=== PATIENT | female | born 1950 | race Caucasian/White ===

== ENCOUNTER → 2023-03-15 | Outpatient (CLI) | payer MEDICARE, OTHER | END | disposition home or self-care (01) | LOC: LABPAT 11:59 | PROVIDERS: ATTEND Orthopaedic Surgery | DX: Z01.812 Encounter for preprocedural laboratory examination (principal); Z22.322 Carrier or suspected carrier of Methicillin resistant Staphylococcus aureus; M47.816 Spondylosis without myelopathy or radiculopathy, lumbar region; M48.061 Spinal stenosis, lumbar region without neurogenic claudication; M54.16 Radiculopathy, lumbar region | CPT/HCPCS: 86850; 86900; 86901; 87070 ==

== ENCOUNTER 2023-03-21 06:59 | Inpatient (IN) | payer MEDICARE, OTHER ==
--- NOTE | 2023-03-21 06:40 | P.HPOR ---
History of Present Illness H&P Date: 03/15/23 .D:Date: 03/15/23 : 04:30pm .T:Title: *[facility] PR[facility]... COPY... Date of :50 R14 Allergies: Age: 72 year Height: 5'6" Weight: 180 lbs BP:/ BMI: 29.05 Occupation: N/A VAS: 8 CHIEF COMPLAINT: Low back pain DOI:Chronic DOS: n/a Duration of current treatment regiment: 4 months HISTORY : Xrays No new xrays taken in office Trauma or injury No Work-Related No Pain description aching, burning, sharp, throbbing , increasing . Location posterior Patient notes that their pain radiates to bilateral lower extremities Activity Modification yes Hand Dominance right TREATMENTS COMPLETED: 6 weeks of PT completed? Month and Year of last PT date? Yes How many sessions? unknown Did it help? No, exacerbates symptoms Physician directed home exercise completed? yes Patient has trialed the physician directed home exercise program without relief of their symptoms. Medications No List: none Alternative interventions Chiropractic: yes Massage therapy: yes R.I.C.E: yes Brace: No Injections Yes How many? 2 Did they help? yes , 1st injection w/relief, 2nd injection, no relief. RFA: No SUBJE CTIVE: Ms. Schultz returns to the office today for a pre-operative appointment for their C92-Syvtlc decompression and fusion. Patient continues to report a increasing aching, burning, sharp, throbbing lumbar pain ongoing for with an onset of 2018 after her right hip replacement. Patient states this pain has increased associated with an increase in left thigh and groin pain. She also continues to report a burning in the thighs bilaterally and a tingling in the thighs. In addition to their lumbar pain, they do report that it radiates into the bilateral lower extremities, associated with numbness and tingling.Ms. Schultz symptoms are exacerbated with prolonged sitting, standing or increased activity, due to this they notes that it is increasingly difficult for Ms. Schultz to complete many of their daily tasks. Patient only finds relief with laying down. Patient is having no sleep disturbances. Regarding treatments, the patient has previously trialed the above listed modalities. Patient denies trialing any other modalities at this time. For their symptoms, the patient denies taking pain medications. Otherwise the patient denies any f/c/sob/cp, no bladder or bowel retention/incontinence, no perineal numbness/tingling, and ambulates independently. HPI: Ms. Schultz returns to the office on 01/11/23 for an evaluation of their low back pain. Patient reports a increasing aching, burning, sharp, throbbing lumbar pain ongoing for with an onset of 2018 after her right hip replacement. Patient states this pain has increased associated with an increase in left thigh and groin pain. She reports a burning in the thighs bilaterally and a tingling in the thighs. In addition to their lumbar pain, they do report that it radiates into the bilateral lower extremities, associated with numbness and tingling. Overall the patient has seen a progressive increase in symptoms since their onset and would like to schedule surgery today. Ms. Schultz symptoms are exacerbated with prolonged sitting, standing or increased activity, due to this they notes that it is increasingly difficult for Ms. Schultz to complete many of their daily tasks. Patient only finds relief with laying down. Patient is having no sleep disturbances. Regarding treatments, the patient has previously trialed the above listed modalities. Patient denies trialing any other modalities at this time. For their symptoms, the patient denies taking pain medications. Otherwise the patient denies any f/c/sob/cp, no bladder or bowel retention/incontinence, no perineal numbness/tingling, and ambulates independently. Ms. Schultz presents to the office on 12/30/22 for an evaluation of their low back pain. Patient reports a increasing aching, burning, sharp, throbbing lumbar pain ongoing for with an onset of 2018 after her right hip replacement. Patient felt that this pain was related to her hip and had a thorough workup by Dr. Mcadams to rule this out. Once he took imaging of her back, she was referred to our services. In addition to their lumbar pain, they do report that it radiates into the bilateral lower extremities, associated with numbness and tingling. Patient reports that radicular pain radiates into her buttock and into her bilateral thighs to her knees. Overall the patient has seen a progressive increase in symptoms since their onset. Ms. Schultz symptoms are exacerbated with prolonged sitting, standing or increased activity, due to this they notes that it is increasingly difficult for Ms. Schultz to complete many of their daily tasks. Patient only finds relief with laying down. Patient is having no sleep disturbances. Regarding treatments, the patient has previously trialed the above listed modalities. Patient denies trialing any other modalities at this time. For their symptoms, the patient denies taking analgesics/anticoagulants/narcotics/MOHAMUD-analogs. She reports nothing seems to help her symptoms. Otherwise the patient denies any f/c/sob/cp, no bladder or bowel retention/incontinence, no perineal numbness/tingling, and ambulates independently. The patients' past social, medical, family, surgical history, as well as review of systems, have been reviewed. Please refer to the Neurosurgery History and Physical form that has been scanned in to our electronic medical record system. 14 points review of systems completed and as stated in HPI, all other systems reviewed are negative. P3 Social History: Smoking: never a smoker P3 Alcohol: occasional alcohol P3 P3 Family History: Reviewed, see appropriate section of the chart for details. P2 Past Medical History: Reviewed, see appropriate section of the chart for details. P1 Current Medications: Rx: gemfibroziL 600 mg tablet Ref: 0 Instructions: take 1 tablet (600 mg) by oral route 2 times per day 30 minutes before morning and evening meal Rx: lisinopriL 20 mg tablet Ref: 0 Instructions: take 1 tablet (20 mg) by oral route once daily Rx: lisinopriL 20 mg-hydrochlorothiazide 12.5 mg tablet Ref: 0 Instructions: take 1 tablet by oral route once daily Rx: metFORMIN 500 mg tablet Ref: 0 Instructions: take 1 tablet (500 mg) by oral route 2 times per day with morning andevening meals Rx: multivitamin tablet Ref: 0 Rx: nabumetone 750 mg tablet Ref: 0 Instructions: take 1 tablet (750 mg) by oral route 2 times per day P1 PHYSICAL EXAMINATION: General: Awake, alert, appropriate for age, in no acute distress. HEENT: No unusual neck masses around region of lateral neck triangle, thyroid, supraclavicular groove Heart: Regular rate and rhythm, normal S1, S2 and no murmur/gallop. Lungs: Clear to auscultation bilaterally with no use of accessory muscles. Extremities: Skin warm and dry without acute lesions, coloration, temperature, skin intact, no tenderness or erythema Integument: Hairy patches: ABSENT Dorsal skin dimples: ABSENT Cafe au lait spots: ABSENT Surgical incisions: n/a Palpation: Please see Pain drawing on Intake sheet for further detail. Midline spinal tenderness: No E6 Cervical Tenderness: No E6 Paralumbar tenderness: No E6 Parathoracic tenderness: No E6 Buttocks tenderness: Yes E6 POSTURAL and MUSCULO-SKELETAL EVALUATION: Coronal Balance: NEUTRAL Recumbent testing: Patient is able to lay flat on back Sagittal Balance: NEUTRAL Shoulder Profile: LEVEL Pelvic Girdle: LEVEL Neck ROM: UNRESTRICTED Lumbar ROM: RESTRICTED Shoulder ROM: Symmetrical Hip ROM: Symmetrical Knee ROM: Symmetrical Hands: Normal appearance, symmetrical Feet: Normal appearance, Symmetrical VASCULAR STATUS : LEFT RIGHT Wrist Pulses INTACT INTACT Pedal Pulses (Dors. pedis & post.tibialis) INTACT INTACT Color NORMAL NORMAL Edema Absent Absent NEUROLOGIC EXAMINATION: Mental Status:Awake and alert, fully oriented, with normal attention, concentration and memory, and fluent, appropriate speech. Cranial Nerves: I: Olfactory not tested. II: Visual acuity normal, no visual field deficit noted with confrontation. III,IV: Normal pupillary reflexes & intact extraocular movements without nystagmus. V,: Intact symmetrical facial sensation. VII: Intact symmetrical facial motor movement VIII: Hearing intact. IX,X: Intact gag, swallow, & normal voice. XI: Sternocleidomastoid, trapezius function intact. XII: Tongue midline with normal movements. L'hermitte's Sign: Negative / absent Spurling'Sign: Absent bilaterally. Cubital percussion test: Absent bilaterally. Cardona-Tinel sign - Carpal region: Absent bilaterally. Straight Leg Raising: Absent bilaterally. Crossed straight leg raise: negative O8 MOTOR EXAM (0-5/5, N/T Muscle appearance: Symmetrical, without signs of atrophy or dystrophy UPPER EXTREMITY RIGHT LEFT Shoulder Abduction 5/5 5/5 Biceps 5/5 5/5 Triceps 5/5 5/5 Wrist Extension 5/5 5/5 Hand Intrnsics 5/5 5/5 Economic Forecaster 5/5 5/5 Hand and finger dexterity intact bilaterally? yes Disdiadochokinesis examination negative bilaterally? yes LOWER EXTREMITY RIGHT LEFT Hip Flexion 4/5 4/5 Knee Extension 4/5 4/5 Knee Flexion 4/5 4/5 Dorsiflexion 4/5 4/5 Plantarflexion 4/5 4/5 EHL 4/5 4/5 FHL 4/5 4/5 Toe heel walk / heel-toe walk intact while maintaining satisfactory balance? No Squatting/straightening w/o assistance to a min of 60 degree knee flexion? No Single leg stance: intact Trendelenburg sign negative bilaterally REFLEXES(0-4/2, NT)Upper ExtremityLower Extremity Right 2 2 Left 2 2 Pathological Reflexes RIGHT LEFT Cardona's Absent Absent Clonus Absent Absent Babinski Absent Absent Sensory system (0-4, N/T) Test type RU SHERYL RL LL Joint-Position 2 2 2 2 Vibration 2 2 2 2 Pain & LT sense 2 2 2 2 Dermatomal Deficit: None None None None Gait and Functional Evaluation: Ambulatory aids: Independent Romberg's test: Intact bilaterally Steady Gait RADIOGRAPHIC STUDIES: XRay Lumbar Multiview (AP, Lateral, Flexion, Extension) with AP pelvis; 5 views taken at [facility] on 12/30/22: Severe multilevel spondylitic and degenerative changes with flattening of the normal lordosis. Multilevel diminished disc height. Grade 1 anterolisthesis of L3 onto L4. Grade 1 retrolisthesis of L4 onto L5. L2-L5 moderate facet arthropathy. L3-L4 severe spinal canal stenosis. Degenerative lumbar scoliosis with convex to the right. No acute osseous abnormalities. Pelvis: The visualized sacrum and iliac wings are within normal limits. Right total hip arthroplasty noted hardware is intact with no migration. [facility]: Impression: 1. L2-L3: Disc height loss and dislocation. Diffuse circumferential bolts. Mild to moderate bilateral neural foraminal narrowing. Facet hypertrophy and ligamentum flavum thickening. Mild narrowing of the central canal. 2. L3-L4: Moderate disc height loss and dislocation. Diffuse circumferential bulge. Moderate bilateral neural foraminal narrowing. Moderately severe narrowing of the central canal to 6 mm. Moderate facet hypertrophy. 3. L4-L5: Moderate to severe disc height loss and dislocation. Moderate diffuse circumferential bulge. Moderate facet hypertrophy. Mild to moderate bilateral neural foraminal narrowing. Mild narrowing of the central canal. 4. L5-S1: Mild disc height loss and dislocation. Moderate facet hypertrophy. Small bilateral facet joint effusions, right greater than left. Moderate right neural foraminal narrowing. Mild left neural foraminal narrowing. IMPRESSION: It was my pleasure to have seen and examined Giana. I reviewed the patient's clinical syndrome, physical findings, and imaging studies during the appointment today. It is my impression that the patient has a diagnosis of. 1. L1-S1 spondylosis with stenosis 2. L1-S1 spondylolisthesis 3. Lower extremity radiculopathy 4. Low back pain 5. Lower extremity weakness I outlined the natural course history without intervention and various interven tional options. PLAN: Based on my findings I suggest the following course of action: -Patient fitted for LSO brace today in office -Advised patient to continue with supplements, health maintenance, and home exercise programs. Patient expressed understanding and will continue with these modalities. -I discussed treatment options with the patient, including operative and non- operative options, and they have elected to proceed with the following surgical procedure: lumbar Q54-Nvxcau Decompression and Fusion The indications, risks, benefits, and alternatives to surgery were discussed with the patient and family at length. Specifically (but not limited to) the risks of infection, stiffness, recurrence of symptoms, need for revision surgery, local numbness, neurovascular injury, and blood clots were discussed. The patient's questions were answered. The decision to proceed was made. Consent will be obtained for the procedure. -Ambulate daily -Take medications as directed -Ice and rest for pain and swelling control. Spine Surgery Risk Review Ms. Schutlz is presenting for evaluation of lumbar pain. It was my pleasure to have seen and examined Ms. Schultz. In our visit today we have had a chance to go over subjective complaints, physical examination findings and treatments including the natural course history without intervention and various interventional options. The patients imaging demonstrates: XRay Lumbar Multiview (AP, Lateral, Flexion, Extension) with AP pelvis; 5 views taken at [facility] on 12/30/22: Severe multilevel spondylitic and degenerative changes with flattening of the normal lordosis. Multilevel diminished disc height. Grade 1 anterolisthesis of L3 onto L4. Grade 1 retrolisthesis of L4 onto L5. L2-L5 moderate facet arthropathy. L3-L4 severe spinal canal stenosis. Degenerative lumbar scoliosis with convex to the right. No acute osseous abnormalities. Pelvis: The visualized sacrum and iliac wings are within normal limits. Right total hip arthroplasty noted hardware is intact with no migration. [facility]: Impression: 1. L2-L3: Disc height loss and dislocation. Diffuse circumferential bolts. Mild to moderate bilateral neural foraminal narrowing. Facet hypertrophy and ligamentum flavum thickening. Mild narrowing of the central canal. 2. L3-L4: Moderate disc height loss and dislocation. Diffuse circumferential bulge. Moderate bilateral neural foraminal narrowing. Moderately severe narrowing of the central canal to 6 mm. Moderate facet hypertrophy. 3. L4-L5: Moderate to severe disc height loss and dislocation. Moderate diffuse circumferential bulge. Moderate facet hypertrophy. Mild to moderate bilateral neural foraminal narrowing. Mild narrowing of the central canal. 4. L5-S1: Mild disc height loss and dislocation. Moderate facet hypertrophy. Small bilateral facet joint effusions, right greater than left. Moderate right neural foraminal narrowing. Mild left neural foraminal narrowing. On physical exam, Ms. Schultz demonstrates: Patient reports a increasing aching, burning, sharp, throbbing lumbar pain ongoing for with an onset of 2018 after her right hip replacement. Patient states this pain has increased associated with an increase in left thigh and groin pain. She reports a burning in the thighs bilaterally and a tingling in the thighs. In addition to their lumbar pain, they do report that it radiates into the bilateral lower extremities, associated with numbness and tingling. Overall the patient has seen a progressive increase in symptoms since their onset and would like to schedule surgery today. Ms. Schultz symptoms are exacerbated with prolonged stiitng, standing or increased activity, due to this they notes that it is increasingly difficult for Ms. Schultz to complete many of their daily tasks. Patient only finds relief with laying down. I have explained to the patient that as their condition progresses it will cause further neurological deficits and eventual paralysis. Based on the patients imaging, physical exam, and the rapid progression and disabling nature of their symptoms, at this time I recommend surgery in the form of a: lumbar [id number]-[id number] Decompression and Fusion. I discussed the risk and benefits of this procedure at length with Ms. Schultz. The patient agreed to considered pursuing the procedure abovementioned. Prior to surgery, she should follow up with her PCP (Cardio, ID, IM etc) for clearance. Questions were invited and answered, and the patient wishes to proceed as outlined below. Currently, I am recommendin.lumbar P03-Lwdckq Decompression and Fusion 2.Follow up with PCP for surgical clearance 3.Review of surgical risks and benefits as well as an educational packet on the proposed surgical procedure. Risks: All surgical procedures come with inherent risks, including those related to positioning, anesthesia, intraoperative findings, and postoperative complications. It is important to understand that surgery does not come with any guarantee of a successful outcome as complications and adverse events are always possible. The patient was given a handout in office today discussing the surgical procedure and risks associated with the intervention, both of which were discussed with the patient. These risks include but are not limited to the following: * Experiencing same, different or even worse symptoms in back, neck, arms, or legs compared to before surgery. Requiring further surgery or other forms of treatment presently or at some time in the future at same or other levels of the intended spine surgery. On an extreme but fortunately relatively rare basis severe complication such as blindness, stroke, heart attack, temporary and/or permanent nerve injury, paralysis, coma, or may occur, sometimes without known explanation. Surgical complications may include but are not limited to risk of infection, fluid accumulation in the surgical dissection site, including a seroma or hematoma, that requires additional surgery, wound drainage, bleeding, new numbness or weakness, vision changes/loss, spinal fluid leakage, non-healing and/or infected incision, headaches, difficulty or inability to swallow, hoarseness, hemopneumothorax, pneumothorax, impotence, retrograde ejaculation, vaginal dryness; injury to nerves, spinal cord, blood vessels, lymphatics or other vital organs (i.e., bowel injury, injury to the great vessels); heterotopic bone formation; complications related to the hardware such as screws, rods, cages including misplaced hardware, device failure, instrumentation at the wrong spine level, hardware fracture/breakage, or hardware loosening; vertebral failure of the spinal column above or below the newly placed hardware; retained surgical instrumentations or devices and the need for further surgery. * Medical risks of the planned spine surgery include but are not limited to generalized Infections to the whole body or local areas outside of the surgica l site (sepsis), heart attack, bleeding, anaphylaxis, meningitis, seizure, epilepsy, hearing loss, burn lopez, laceration of the head or other areas of the body, bruising, hypersensitivity of the skin, bladder over distension; allergic reaction; shoulder injury related to positioning; fat, blood and air clots to other areas of the body like heart, lungs, brain; failure of internal organs such as lungs, kidneys, liver and excessive bleeding. If blood transfusions are necessary, note that transfusions may cause intolerance reactions such as anaphylaxis or other complex reactions. Despite best efforts, the results of spine surgery might not heal in terms of bone, soft tissues such as skin, fascia, ligaments, and joints. Additionally, in order to achieve best possible results, spine surgery may be carried out beyond the initially planned levels and involve decompression, fusion including insertion of hardware at levels other than the original intended area of surgical interest change some portions of the procedure in order to ensure the best possible outcomes. With spine surgery and spinal fusion, there are different off label uses of instrumentation (devices, implants and hardware) as well as biological substances (bone morphogenic proteins, demineralized bone matrix) as well as using extra bone from allograft sources (i.e. cadaver bone) or autograft (iliac crest bone, ribs, or the spine itself). The patient has been given information about these practices and their inherent risks and benefits. [facility] is an educational center that serves as a training facility for neurosurgical and orthopedic PICKER MACHINE OPERATOR and Nursing students. Physician assistants are medically trained surgical providers who function in the outpatient, inpatient, and operating room setting under the direct supervision of the attending surgeon. [facility] has multiple operating rooms with single and overlapping rooms running daily. They currently function under the required guidelines as produced by the [facility] Finance Committee with regards to the overlapping rooms and will continue to comply with changes to this policy as they occur. The requirements include and are complied with as follows: (1) the critical portions of the overlapping rooms will not occur at the same time, (2) the attending physician will be physically present during the critical portions of the procedure and immediately available during the entire case, and (3) a back-up attending is designated should the primary attending not be immediately available. The patient has had a chance to review all the listed information, has been given print outs detailing this information, and has had all his/her questions answered to their satisfaction. It was my pleasure to have seen and examined Ms. Schultz. In our visit today we have had a chance to go over my understanding of our patient's current condition, the natural course history without intervention and various interventional options. Questions were invited and answered, and the patient wishes to proceed as outlined above. I have seen and examined the patient for 25 minutes and we have spent more than 50% of the time in repeat and detailed cou nseling about the patient's condition, its natural course history with out and as much as can be predicted with surgery and re-review of various surgical treatment options. In conclusion, Ms. Schultz requested we proceed with the above suggested surgery and are willing to accept risks and limitations of the suggested surgery as nature of the disease process and our best attempts at treatment for the condition. Thank you again for allowing us to be part of your patient's care. Please don't hesitate to contact me if you have any further questions. Follow- up: DEL Post procedure 1month 6wks 3 months 6 months 1 year Patient Education: (Informational booklet, instructions, etc) given at today's appointment: DEL Yes .ED:Patient Education: Y Medications Reviewed: YES In our visit today Ms. Schultz and I have had a chance to go over my understanding of the patient's current condition, the natural course history without intervention and various interventional options. Questions were invited and answered, and the patient wishes to proceed as outlined above. I will be sure to keep you updated afterMs. Schultz returns here for further follow-up. Thank you again for your referral. Please do not hesitate to contact me if you have any further questions. Signed and authenticated by: [facility] [address] [id number] This message is confidential, intended only for the named recipient(s) and may contain information that is privileged or exempt from disclosure under applicable law. If you are not the intended recipient(s), you are notified that the dissemination, distribution or copying of this information is strictly prohibited. If you received this message in error, please notify the sender then delete this message. Patient verbalizes understanding of the information discussed. The above note was initiated by Saravanan Gtz, physician recording medical practice assistant for Dr. Lie Duong. This note has been reviewed by Dr. Duong, who has made his personal changes and impressions for this document. CC: Fred Stephens, Past Medical History Past Medical History: Diabetes Mellitus, Hyperlipidemia, Hypertension, Musculoskeletal Disorder, Osteoarthritis (OA) Additional Past Medical History / Comment(s): Degenerative Disc Disease. History of Any Multi-Drug Resistant Organisms: None Reported Past Surgical History: Cholecystectomy Additional Past Surgical History / Comment(s): Dental work, cataract surgery. Past Anesthesia/Blood Transfusion Reactions: No Reported Reaction Past Psychological History: No Psychological Hx Reported Smoking Status: Never smoker Past Alcohol Use History: Occasional Additional Past Alcohol Use History / Comment(s): 2-3 alcoholic drinks 3-4 times per week. Past Drug Use History: None Reported - Past Family History Brother(s) Family Medical History: Cancer Additional Family Medical History / Comment(s): Lung cancer. Father Family Medical History: Cancer Additional Family Medical History / Comment(s): Melanoma. Medications and Allergies Home Medications Medication Instructions Recorded Confirmed Type Calcium Citrate/Vitamin D3 1 each PO DAILY 03/15/23 03/15/23 History [Citracal + D Maximum Caplet] Glucosamine/Chondr Leon A Sod [Osteo 1 each PO BID 03/15/23 03/15/23 History Bi-Flex Caplet] Lisinopril-Hctz 20-12.5 mg 1 tab PO QAM 03/15/23 03/15/23 History [Zestoretic 20-12.5] Multivitamins, Thera [Multivitamin 1 tab PO DAILY 03/15/23 03/15/23 History (formulary)] Nabumetone 750 mg PO BID 03/15/23 03/15/23 History Niacin 500 mg PO DAILY 03/15/23 03/15/23 History gemfibroziL [Lopid] 600 mg PO BID 03/15/23 03/15/23 History lisinopriL [Prinivil] 20 mg PO QAM 03/15/23 03/15/23 History metFORMIN HCL 500 mg PO BID 03/15/23 03/15/23 History Allergies Allergy/AdvReac Type Severity Reaction Status Date / Time ciprofloxacin [From Cipro] Allergy Rash/Hives Verified 03/15/23 15:53 poison jarek extract Allergy Rash/Hives Verified 03/15/23 15:53 Sulfa (Sulfonamide Allergy Unknown Verified 03/15/23 15:53 Antibiotics) Physical Examination Osteopathic Statement: *. No significant issues noted on an osteopathic structural exam other than those noted in the History and Physical/Consult. Results - Labs Labs: Microbiology - Last 24 Hours (Table) 03/15/23 12:18 Nasal Screen MRSA/MSSA - Final Nasal Swab Staphylococcus aureus,Not MRSA
[~2023-03-21 06:59] MED LIST: ACETAMINOPHEN TAB 500 MG TAB PO PRN; DEXAMETHASONE SOD PHOSPHATE 4 MG/ML 1 ML VIAL IV ONE; GABAPENTIN 300 MG CAP PO PRN; LACTATED RINGERS 1,000 ML IV SCH; LIDOCAINE 1% (10MG/ML) FOR IV START INTRADERMA PRN; MIDAZOLAM 2 MG/2 ML VIAL IV PRN; ONDANSETRON 4 MG/2 ML VIAL IVP ONE; ONDANSETRON 4 MG/2 ML VIAL IVP PRN; TRANEXAMIC 1,000 MG/100ML-NACL 1,000 MG in SALINE 1 100ML.BAG IVPB PRN
[2023-03-21] MEDS ORDERED: HYDROmorphone 0.5 MG/0.5 ML SYRINGE IVP PRN (07:00)
[2023-03-21 07:39] LABS: Glucose,Whole Blood 139 mg/dL (70-110)
[2023-03-21] MEDS ORDERED: MIDAZOLAM 2 MG/2 ML VIAL IVP ONE (07:51)
[2023-03-21] MEDS ORDERED: fentaNYL (PF) 50 MCG/ML 2 ML AMP IVP ONE (07:51)
[2023-03-21] MEDS ORDERED: GLYCOPYRROLATE 0.2 MG/ML 2 ML VIAL ONE (09:02)
[2023-03-21] MEDS ORDERED: PROPOFOL 10 MG/ML 20 ML VIAL IV ONE (09:02)
[2023-03-21] MEDS ORDERED: NEOSTIGMINE 1 MG/ML 10 ML VIAL ONE (09:02)
[2023-03-21] MEDS ORDERED: ROCURONIUM 10 MG/ML (5 ML VIAL) IV ONE (09:02)
[2023-03-21] MEDS ORDERED: VASOPRESSIN 20 UNIT/ML 1 ML VIAL ONE (09:02)
[2023-03-21] MEDS ORDERED: fentaNYL (PF) 50 MCG/ML 2 ML AMP ONE (09:02)
[2023-03-21] MEDS ORDERED: WATER FOR INJECTION, STERILE 10 ML VIAL IV ONE (09:02)
[2023-03-21] MEDS ORDERED: TRANEXAMIC 1,000 MG/100ML-NACL PREMIX BAG ONE (09:02)
[2023-03-21] MEDS ORDERED: SUCCINYLCHOLINE CHLORIDE 200 MG/10 ML VIAL IV ONE (09:02)
[2023-03-21] MEDS ORDERED: PHENYLEPHRINE-0.9% NACL SYG 1,000 MCG/10 ML SYRINGE ONE (09:02)
[2023-03-21] MEDS ORDERED: MIDAZOLAM 2 MG/2 ML VIAL ONE (09:02)
[2023-03-21] MEDS ORDERED: INSULIN REGULAR 100 UNIT/ML VIAL (IV) ONE (09:02)
[2023-03-21] MEDS ORDERED: ePHEDrine 50 MG/ML 1 ML VIAL ONE (09:02)
[2023-03-21] MEDS ORDERED: ALBUMIN HUMAN 5% (12.5gm) 250 ML BOTTLE IVPB ONE (09:02)
[2023-03-21] MEDS ORDERED: KETAMINE 10 MG/ML 20 ML VIAL ONE (09:02)
[2023-03-21] MEDS ORDERED: LIDOCAINE 2% INJ 20 MG/ML (2 ML VIAL) ONE (09:02)
--- NOTE | 2023-03-21 09:16 | XR ---
EXAMINATION TYPE: XR chest 1V confirm line [facility] DATE OF EXAM: 03/21/2023 COMPARISON: NONE HISTORY: 72-year-old female preop, line placement TECHNIQUE: Single frontal view of the chest is obtained. FINDINGS: Right IJ CVC tip at the mid SVC level. Heart normal size. No consolidation or pleural effu grady seen. IMPRESSION: Right IJ CVC tip at the mid SVC level. No acute process seen.
--- NOTE | 2023-03-21 09:48 | P.ANPRN ---
Procedure Note - Anesthesia - Invasive Line Right Arterial Line Time Out Performed: Yes Date of Procedure: 03/21/23 Location of Patient: PreOp Preparation: Sterile Prep, Sterile Dressing Arterial Line Location: Radial Ultrasound Used: No Purpose - Visualization and Identification of Vasculature: No Image Stored and Saved: Yes Narrative: Informed consent obtained from the patient. Procedure was performed under complete aseptic precautions. The right wrist is slightly extended and placed on a roll of cloth. Radial artery palpated and appeared to have a intact collateral circulation. Front of the wrist was cleaned with ChloraPrep. It was draped and 2 mL of 1% lidocaine was infiltrated and ability into the front of the wrist. A 20-gauge two and half inch Arrow arterial catheter was inserted and a bright red blood/back was noticed. It was connected to the pressure monitoring line and the flashback was confirmed. The line was sutured into the skin. Tegaderm dressing was applied. Patient tolerated the procedure very well with no apparent complications. Right Central Line Time Out Performed: Yes Location of Patient: PreOp Preparation: Sterile Prep, Sterile Dressing Central Line Location: Internal Jugular Ultrasound Used: Yes Purpose - Visualization and Identification of Vasculature: Yes Image Stored and Saved: Yes Narrative: Central line placement per sterile protocol utilized. Informed consent obtained.Right Internal jugular vein cannulated under aseptic precautions. 3cc 1% lidocaine infiltrated initially after cleaning with iodine based prep and draping. Ultrasound used to locate the vein and Seldinger technique used. 7-Moroccan triple lumen central line in inserted after the finding the needle with pilot supervisor needle/catheter. The catheter was sutured in place. The insertion site was dressed with biopatch and tegaderm. Patient tolerated the procedure well.
[2023-03-21] MEDS ORDERED: LACTATED RINGERS 1,000 ML IV ONE ×4 (09:54→15:46)
[2023-03-21] MEDS ORDERED: THROMBIN (BOVINE) 5,000 UNIT VIAL MISCELLANE ONE (10:02)
[2023-03-21] MEDS ORDERED: GELATIN SPONGE,ABSORB (LARGE) 1 EACH SPONGE MISCELLANE ONE (10:02)
[2023-03-21] MEDS ORDERED: ceFAZolin 3,000 MG in SODIUM CHLORIDE 0.9% IRRIGATIO 3,000 ML IRRIGATION ONE (11:00)
[2023-03-21] MEDS ORDERED: GENTAMICIN 80 MG in SODIUM CHLORIDE 0.9% IRRIGATIO 3,000 ML IRRIGATION ONE (11:00)
[2023-03-21 14:59] LABS: Glucose,Whole Blood 254 mg/dL (70-110)
[2023-03-21] MEDS ORDERED: VANCOMYCIN 1,000 MG VIAL MISCELLANE ONE (15:22)
[2023-03-21] MEDS ORDERED: NA PHOS,M-B/NA PHOS,DI-BA 133 ML ENEMA RECTAL PRN (16:43)
[2023-03-21] MEDS ORDERED: MAGNESIUM HYDROXIDE 2,400 MG/30 ML CUP PO PRN (16:43)
[2023-03-21] MEDS ORDERED: HYDROcodone/APAP 5-325MG 1 EACH TAB PO PRN (16:43)
[2023-03-21] MEDS ORDERED: bisacodyL 10 MG SUPP RECTAL PRN (16:43)
[2023-03-21] MEDS ORDERED: SENNOSIDES-DOCUSATE SODIUM 1 EACH TAB PO PRN (16:43)
[2023-03-21] MEDS ORDERED: HYDROcodone/APAP 7.5-325MG 1 EACH TAB PO PRN (16:48)
[2023-03-21] MEDS ORDERED: NALOXONE 0.4 MG/ML 1 ML VIAL IV PRN (16:50)
[2023-03-21 16:56] LABS: Glucose,Whole Blood 233 mg/dL (70-110)
[2023-03-21] MEDS ORDERED: HYDROmorphone PCA 10 MG/50 ML BAG IV PRN (17:00)
[2023-03-21] MEDS ORDERED: 0.9% NACL WITH KCL 20 MEQ/L 1,000 ML IV SCH (17:00)
--- NOTE | 2023-03-21 17:12 | FL ---
EXAMINATION TYPE: FL guidance operating room, XR lumbar spine 2 or 3V DATE OF EXAM: 03/21/2023 FLUOROSCOPY Fluoroscopy time of 2 minutes 19 seconds was used during [id number] fusion. 25 image/s document/s th e procedure. DOSE AREA PRODUCT (DAP) UGY*M,MGY*CM: 3439.6
[2023-03-21 17:45] LABS: Glucose,Whole Blood 255 mg/dL (70-110)
[2023-03-21] MEDS ORDERED: INSULIN ASPART (NovoLOG) 100 UNIT/ML VIAL SQ ONE (17:48)
[2023-03-21 17:51] LABS: Basophils % (A) 0 %; Eosinophils % (A) 0 %; Lymphocytes # (A) 0.8 k/uL (1.0-4.8); Lymphocytes % (A) 7 %; MCH 34.3 pg (25.0-35.0); MCHC 34.6 g/dL (31.0-37.0); MCV 99.1 fL (80.0-100.0); Mean Platelet Volume 7.8; Monocytes # (A) 0.3 k/uL (0-1.0); Monocytes % (A) 3 %; Neutrophils # (A) 10.6 k/uL (1.3-7.7); Neutrophils % (A) 90 %; Platelet Count 173 k/uL (150-450); RBC 2.33 m/uL (3.80-5.40); RDW 12.8 % (11.5-15.5); WBC 11.7 k/uL (3.8-10.6)
[2023-03-21 18:09] LABS: African American GFR (CKD) 79 (>60 ml/min/1.73 sqM); Anion Gap 16 mmol/L; Blood Urea Nitrogen 18 mg/dL (7-17); Calcium 7.9 mg/dL (8.4-10.2); Carbon Dioxide 11 mmol/L (22-30); Chloride 109 mmol/L (98-107); Glucose 220 mg/dL (74-99); Non-African American GFR(CKD) 68 (>60 ml/min/1.73 sqM); Potassium 3.8 mmol/L (3.5-5.1); Sodium 136 mmol/L (137-145)
[2023-03-21 18:10] LABS: Glucose,Whole Blood 213 mg/dL (70-110)
[2023-03-21] MEDS ORDERED: Potassium Replacement Protocol 1 EACH MISC MISCELLANE PRN (18:25)
[2023-03-21] MEDS ORDERED: SODIUM CHLORIDE 0.9% 1,000 ML IV ONE ×2 (18:53→22:25)
[2023-03-21] MEDS: ACETAMINOPHEN TAB 325 MG TAB PO SCH (19:51)
[2023-03-21] MEDS: GABAPENTIN 100 MG CAP PO SCH (20:05)
[2023-03-21 20:44] LABS: Glucose,Whole Blood 182 mg/dL (70-110)
[2023-03-21] MEDS: HYDROmorphone 0.5 MG/0.5 ML SYRINGE IVP PRN (21:09)
--- NOTE | 2023-03-21 21:24 | XR ---
EXAMINATION TYPE: XR chest 1V DATE OF EXAM: 03/21/2023 8:06 PM COMPARISON: 03/21/2023 TECHNIQUE: XR chest 1V Frontal view of the chest. CLINICAL INDICATION:Female, 72 years old with history of post surgery; FINDINGS: Lungs/Pleura: There is no evidence of pleural effusion, focal consolidation, or pneumothorax. Pulmonary vascularity: Unremarkable. Heart/mediastinum: Cardiomediastinal silhouette is unremarkable. Musculoskeletal: No acute osseous pathology. Other findings: Surgical skin clips project over the midline abdomen. Multilevel disc degeneration ch anges with fixation hardware throughout the lower spine. There is right upper quadrant cholecystectom y clips. Lines/Tubes: Right internal jugular central venous catheter with distal tip at the cavoatrial junction. IMPRESSION: 1. Postsurgical changes. No evidence for acute pulmonary process. 2. Right central venous catheter in appropriate position.
[2023-03-22] MEDS: ACETAMINOPHEN TAB 325 MG TAB PO SCH ×5 (00:04→23:56)
[2023-03-22] MEDS ORDERED: SODIUM CHLORIDE 0.9% 500 ML 500 ML IV ONE (00:20)
[2023-03-22] MEDS ORDERED: Magnesium Replacement Protocol 1 EACH MISC MISCELLANE PRN (00:34)
--- NOTE | 2023-03-22 00:53 | P.CONS ---
History of Present Illness - Reason for Consult Consult date: 03/21/23 - History of Present Illness Patient is a 72-year-old female with a PMH of hypertension and type II DM who was admitted to the hospital for scheduled T10 to pelvis decompression fusion which the patient underwent earlier today. She was seen postoperatively in the medical ICU. She reported being pain free at rest with mild lower back pain with movement. Denied any additional complaints. Denied experiencing chest discomfort, shortness of breath, sore throat, fever, chills, cough, nausea, vomiting, abdominal pain. Review of systems: Pertinent positives and negatives as discussed in HPI, a complete review of systems was performed and all other systems are negative. Physical examination: Vital signs reviewed General: non toxic, in warming blanket, no distress, appears at stated age, overweight Derm: no unusual rashes/lesions, warm Head: atraumatic, normocephalic, symmetric Eyes: EOMI, no lid lag, anicteric sclera, pupils equal round reactive to light ENT: Nose and ears atraumatic Neck: No cervical lymphadenopathy, trachea midline, supple Mouth: no lip lesion, mucus membranes moist Cardiovascular: S1S2 reg, no murmur, positive dorsalis pedis pulse bilateral, no edema Lungs: CTA bilateral, no rhonchi, no rales, no accessory muscle use Abdominal: soft, nontender to palpation, no guarding Ext: muscle strength 5 out of 5 in all 4 extremities grossly, no gross muscle atrophy, no contractures Neuro: CN II-XI grossly intact, no gross focal neuro deficits Psych: Alert, oriented, appropriate affect Assessment: Chronic conditions: HTN, type II DM Status post T10 to pelvis decompression and fusion Hypomagnesemia Alkalosis, unclear etiology Leukocytosis, suspect due to acute stressor Normocytic anemia, no baseline available for comparison Data Review: Laboratory evaluation was reviewed with WBC count 11.7, hemoglobin 8.0, sodium 136, chloride 109, CO2 11, BUN 18, glucose 220, and magnesium 1.3 Plan: Replace magnesium and monitor for resolution of hypomagnesemia Insulin sliding scale and blood glucose monitoring Hold off on home antihypertensives at this time in setting of borderline BP Monitor BMP for now Defer management of pain control and DVT prophylaxis to the primary surgery service Past Medical History Past Medical History: Diabetes Mellitus, Hyperlipidemia, Hypertension, Musculoskeletal Disorder, Osteoarthritis (OA) Additional Past Medical History / Comment(s): Degenerative Disc Disease. History of Any Multi-Drug Resistant Organisms: None Reported Past Surgical History: Cholecystectomy Additional Past Surgical History / Comment(s): Dental work, cataract surgery. Past Anesthesia/Blood Transfusion Reactions: No Reported Reaction Past Psychological History: No Psychological Hx Reported Smoking Status: Never smoker Past Alcohol Use History: Occasional Additional Past Alcohol Use History / Comment(s): 2-3 alcoholic drinks 3-4 times per week. Past Drug Use History: None Reported - Past Family History Brother(s) Family Medical History: Cancer Additional Family Medical History / Comment(s): Lung cancer. Father Family Medical History: Cancer Additional Family Medical History / Comment(s): Melanoma. Medications and Allergies Home Medications Medication Instructions Recorded Confirmed Type Calcium Citrate/Vitamin D3 1 each PO DAILY 03/15/23 03/21/23 History [Citracal + D Maximum Caplet] Glucosamine/Chondr Leon A Sod [Osteo 1 each PO BID 03/15/23 03/21/23 History Bi-Flex Caplet] Lisinopril-Hctz 20-12.5 mg 1 tab PO QAM 03/15/23 03/21/23 History [Zestoretic 20-12.5] Multivitamins, Thera [Multivitamin 1 tab PO DAILY 03/15/23 03/21/23 History (formulary)] Nabumetone 750 mg PO BID 03/15/23 03/21/23 History Niacin 500 mg PO DAILY 03/15/23 03/21/23 History gemfibroziL [Lopid] 600 mg PO BID 03/15/23 03/21/23 History lisinopriL [Prinivil] 20 mg PO QAM 03/15/23 03/21/23 History metFORMIN HCL 500 mg PO BID 03/15/23 03/21/23 History Allergies Allergy/AdvReac Type Severity Reaction Status Date / Time ciprofloxacin [From Cipro] Allergy Rash/Hives Verified 03/21/23 07:27 poison jarek extract Allergy Rash/Hives Verified 03/21/23 07:27 Sulfa (Sulfonamide Allergy Unknown Verified 03/21/23 07:27 Antibiotics) Physical Exam Vitals: Vital Signs Temp Pulse Pulse Resp BP BP BP 03/22/23 00:00 98.8 F 96 16 110/46 03/21/23 23:30 89 20 107/47 03/21/23 23:25 98 F 87 17 107/47 03/21/23 23:00 86 17 109/44 03/21/23 22:30 82 15 113/47 03/21/23 22:00 84 15 116/46 03/21/23 21:30 82 14 108/72 03/21/23 21:02 97.9 F 83 14 108/72 03/21/23 21:00 84 13 03/21/23 20:45 76 11 L 03/21/23 20:42 96.6 F L 67 16 108/48 03/21/23 20:41 96.6 F L 67 16 108/48 03/21/23 20:32 96.6 F L 70 12 144/42 03/21/23 20:30 73 15 108/48 03/21/23 20:15 87 17 03/21/23 20:00 96.6 F L 78 25 H 115/55 03/21/23 19:00 94 6 L 106/44 03/21/23 18:45 68 8 L 106/44 03/21/23 18:30 78 6 L 101/46 03/21/23 18:15 69 6 L 03/21/23 18:09 97.6 F 80 8 L 03/21/23 17:47 79 16 100/48 03/21/23 17:32 78 16 108/44 03/21/23 17:17 79 16 99/58 03/21/23 17:02 83 16 100/49 03/21/23 16:48 96.8 F L 97 16 106/52 03/21/23 07:32 98.4 F 65 151/68 BP Pulse Ox 03/22/23 00:00 97 03/21/23 23:30 94 L 03/21/23 23:25 94 L 03/21/23 23:00 94 L 03/21/23 22:30 95 03/21/23 22:00 95 03/21/23 21:30 90 L 03/21/23 21:02 96 03/21/23 21:00 94 L 03/21/23 20:45 95 03/21/23 20:42 97 03/21/23 20:41 97 03/21/23 20:32 97 03/21/23 20:30 94 L 03/21/23 20:15 98 03/21/23 20:00 96 03/21/23 19:00 98 03/21/23 18:45 98 03/21/23 18:30 96 03/21/23 18:15 86 L 03/21/23 18:09 03/21/23 17:47 99/42 99 03/21/23 17:32 100/43 98 03/21/23 17:17 90/53 97 03/21/23 17:02 103/52 98 03/21/23 16:48 97 03/21/23 07:32 97 Intake and Output 03/21/23 03/21/23 03/22/23 14:59 22:59 06:59 Intake Total 3552 3800 410 Output Total 1910 110 Balance 3552 1890 300 Intake: IV 3552 600 Intake, IV Titration 3200 100 Amount 0.9% NaCl with KCl 20 Meq 1100 100 /l 1,000 ml @ 50 mls/hr IV .Q20H [facility] Rx#: [id number] Sodium Chloride 0.9% 1, 2000 000 ml @ 999 mls/hr IV . Q1H1M [facility] Rx#:[id number] ceFAZolin 2 gm In Sodium 100 Chloride 0.9% 50 ml @ 100 mls/hr IVPB Q8H [facility] Rx#: [id number] Blood Product 0 310 Rc As-1 Unit 0 310 [id number] Output: Urine 1210 110 Estimated Blood Loss 700 Other: Voiding Method Indwelling Catheter Weight 81.5 kg ABP, PAP, CO, CI - Last 8 Hours Arterial Blood Pressure 118/42 Arterial Blood Pressure 109/41 Arterial Blood Pressure 109/39 Arterial Blood Pressure 113/39 Arterial Blood Pressure 130/40 Arterial Blood Pressure 128/37 Arterial Blood Pressure 124/39 Arterial Blood Pressure 142/41 Arterial Blood Pressure 145/42 Arterial Blood Pressure 170/47 Arterial Blood Pressure 146/45 Arterial Blood Pressure 168/45 Arterial Blood Pressure 111/29 Arterial Blood Pressure 116/28 Arterial Blood Pressure 99/27 Results CBC & Chem 7: 03/21/23 17:36 03/21/23 17:36 Labs: Abnormal Lab Results - Last 24 Hours (Table) 03/21/23 03/21/23 03/21/23 Range/Units 07:38 14:56 16:55 WBC (3.8-10.6) k/uL RBC (3.80-5.40) m/uL Hgb (11.4-16.0) gm/dL Hct (34.0-46.0) % Neutrophils # (1.3-7.7) k/uL Lymphocytes # (1.0-4.8) k/uL Sodium (137-145) mmol/L Chloride (98-107) mmol/L Carbon Dioxide (22-30) mmol/L BUN (7-17) mg/dL Glucose (74-99) mg/dL POC Glucose (mg/dL) 139 H 254 H 233 H (70-110) mg/dL Calcium (8.4-10.2) mg/dL Magnesium (1.6-2.3) mg/dL Crossmatch 03/21/23 03/21/23 03/21/23 Range/Units 17:36 17:36 17:36 WBC 11.7 H (3.8-10.6) k/uL RBC 2.33 L (3.80-5.40) m/uL Hgb 8.0 L (11.4-16.0) gm/dL Hct 23.0 L (34.0-46.0) % Neutrophils # 10.6 H (1.3-7.7) k/uL Lymphocytes # 0.8 L (1.0-4.8) k/uL Sodium 136 L (137-145) mmol/L Chloride 109 H (98-107) mmol/L Carbon Dioxide 11 L (22-30) mmol/L BUN 18 H (7-17) mg/dL Glucose 220 H (74-99) mg/dL POC Glucose (mg/dL) (70-110) mg/dL Calcium 7.9 L (8.4-10.2) mg/dL Magnesium 1.3 L (1.6-2.3) mg/dL Crossmatch 03/21/23 03/21/23 03/21/23 Range/Units 17:43 18:08 19:00 WBC (3.8-10.6) k/uL RBC (3.80-5.40) m/uL Hgb (11.4-16.0) gm/dL Hct (34.0-46.0) % Neutrophils # (1.3-7.7) k/uL Lymphocytes # (1.0-4.8) k/uL Sodium (137-145) mmol/L Chloride (98-107) mmol/L Carbon Dioxide (22-30) mmol/L BUN (7-17) mg/dL Glucose (74-99) mg/dL POC Glucose (mg/dL) 255 H 213 H (70-110) mg/dL Calcium (8.4-10.2) mg/dL Magnesium (1.6-2.3) mg/dL Crossmatch See Detail 03/21/23 Range/Units 20:42 WBC (3.8-10.6) k/uL RBC (3.80-5.40) m/uL Hgb (11.4-16.0) gm/dL Hct (34.0-46.0) % Neutrophils # (1.3-7.7) k/uL Lymphocytes # (1.0-4.8) k/uL Sodium (137-145) mmol/L Chloride (98-107) mmol/L Carbon Dioxide (22-30) mmol/L BUN (7-17) mg/dL Glucose (74-99) mg/dL POC Glucose (mg/dL) 182 H (70-110) mg/dL Calcium (8.4-10.2) mg/dL Magnesium (1.6-2.3) mg/dL Crossmatch
--- NOTE | 2023-03-22 00:59 | P.CNPUL ---
History of Present Illness Consult date: 03/22/23 Requesting physician: Lei Duong Reason for consult: other (ICU management) Chief complaint: Elective back surgery History of present illness: I am seeing this patient in new consultation today 03/22/2023 status postoperative day #1 following an elective T10 to pelvis decompression and fus ion. Patient is a 72-year-old female with past medical history significant for chronic back pain and lumbar radiculopathy, diabetes mellitus type 2, hyperlipidemia, hypertension. Patient has been complaining of lumbar radiculopathy like symptoms earlier this year, and was evaluated by Dr. Mccoy on. She was found to have multilevel spondylosis and spondylolisthesis. She underwent an elective T10 to pelvis decompression and fusion yesterday with Dr. Duong. She did have some postoperative hypotension. Estimated blood loss was reported as 700 ML's. She was given 1 unit PRBC, and a total of 2.5 L normal saline bolus. Blood pressures are now normotensive. Urine output is adequate in the order of 50-60 ML's per hour. Patient was extubated successfully in recovery, currently on 4 L/m nasal cannula, in no acute distress. Postoperative chest x-ray shows no acute cardiopulmonary processes. There is a right sided intrajugular central line catheter near the cavoatrial junction. There were also some postsurgical changes. Patient is currently supine in bed. No focal neurological deficits. She is able to move all 4 extremities. Denies any sensation disturbances or saddle anesthesia. Postoperative CBC shows WBC count of 11.7, hemoglobin 8, hematocrit 23, platelets 173. BMP sodium 136, potassium 3.8, chloride 109, serum bicarb 11, BUN 18, creatinine 0.6, glucose 220. Magnesium was low at 1.3. Normal saline with 20 mEq of potassium is infusing at 50 ML's per hour. Nasal swab was positive and colonized with MSSA preoperatively, and the patient is currently on cefazolin. Pain is reportedly well managed on current regimen. Patient will be monitored in the intensive care unit. Review of Systems REVIEW OF SYSTEMS: CONSTITUTIONAL: Denies any recent significant weight loss or weight gain. EYES: Denies change in vision. EARS, NOSE, MOUTH, THROAT: Denies headaches, denies sore throat. CARDIOVASCULAR: Denies chest pain, palpitations or syncopal episodes. RESPIRATORY: Denies shortness of breath, cough, congestion or hemoptysis. GASTROINTESTINAL: Denies change in appetite, abdominal pain, nausea and vomiting, or diarrhea GENITOURINARY: Denies hematuria, denies infections. MUSKULOSKELETAL: Admit some postsurgical thoracic and lumbar back pain. INTEGUMENTARY: Denies rash, denies eczema. NEUROLOGICAL: Denies recent memory loss, no recent seizure activity. No focal weakness or sensation disturbances. Denies saddle anesthesia. PSYCHIATRIC: Denies anxiety, denies depression. HEMATOLOGIC/LYMPHATIC: Denies anemia, denies enlarged lymph node Past Medical History Past Medical History: Diabetes Mellitus, Hyperlipidemia, Hypertension, Musculoskeletal Disorder, Osteoarthritis (OA) Additional Past Medical History / Comment(s): Degenerative Disc Disease. History of Any Multi-Drug Resistant Organisms: None Reported Past Surgical History: Cholecystectomy Additional Past Surgical History / Comment(s): Dental work, cataract surgery. Past Anesthesia/Blood Transfusion Reactions: No Reported Reaction Past Psychological History: No Psychological Hx Reported Smoking Status: Never smoker Past Alcohol Use History: Occasional Additional Past Alcohol Use History / Comment(s): 2-3 alcoholic drinks 3-4 times per week. Past Drug Use History: None Reported - Past Family History Brother(s) Family Medical History: Cancer Additional Family Medical History / Comment(s): Lung cancer. Father Family Medical History: Cancer Additional Family Medical History / Comment(s): Melanoma. Medications and Allergies Home Medications Medication Instructions Recorded Confirmed Type Calcium Citrate/Vitamin D3 1 each PO DAILY 03/15/23 03/21/23 History [Citracal + D Maximum Caplet] Glucosamine/Chondr Leon A Sod [Osteo 1 each PO BID 03/15/23 03/21/23 History Bi-Flex Caplet] Lisinopril-Hctz 20-12.5 mg 1 tab PO QAM 03/15/23 03/21/23 History [Zestoretic 20-12.5] Multivitamins, Thera [Multivitamin 1 tab PO DAILY 03/15/23 03/21/23 History (formulary)] Nabumetone 750 mg PO BID 03/15/23 03/21/23 History Niacin 500 mg PO DAILY 03/15/23 03/21/23 History gemfibroziL [Lopid] 600 mg PO BID 03/15/23 03/21/23 History lisinopriL [Prinivil] 20 mg PO QAM 03/15/23 03/21/23 History metFORMIN HCL 500 mg PO BID 03/15/23 03/21/23 History Allergies Allergy/AdvReac Type Severity Reaction Status Date / Time ciprofloxacin [From Cipro] Allergy Rash/Hives Verified 03/21/23 07:27 poison jarek extract Allergy Rash/Hives Verified 03/21/23 07:27 Sulfa (Sulfonamide Allergy Unknown Verified 03/21/23 07:27 Antibiotics) Physical Exam Vitals: Vital Signs Temp Pulse Pulse Resp BP BP BP 03/22/23 00:00 98.8 F 96 16 110/46 03/21/23 23:30 89 20 107/47 03/21/23 23:25 98 F 87 17 107/47 03/21/23 23:00 86 17 109/44 03/21/23 22:30 82 15 113/47 03/21/23 22:00 84 15 116/46 03/21/23 21:30 82 14 108/72 03/21/23 21:02 97.9 F 83 14 108/72 03/21/23 21:00 84 13 03/21/23 20:45 76 11 L 03/21/23 20:42 96.6 F L 67 16 108/48 03/21/23 20:41 96.6 F L 67 16 108/48 03/21/23 20:32 96.6 F L 70 12 144/42 03/21/23 20:30 73 15 108/48 03/21/23 20:15 87 17 03/21/23 20:00 96.6 F L 78 25 H 115/55 03/21/23 19:00 94 6 L 106/44 03/21/23 18:45 68 8 L 106/44 03/21/23 18:30 78 6 L 101/46 03/21/23 18:15 69 6 L 03/21/23 18:09 97.6 F 80 8 L 03/21/23 17:47 79 16 100/48 03/21/23 17:32 78 16 108/44 03/21/23 17:17 79 16 99/58 03/21/23 17:02 83 16 100/49 03/21/23 16:48 96.8 F L 97 16 106/52 03/21/23 07:32 98.4 F 65 151/68 BP Pulse Ox 03/22/23 00:00 97 03/21/23 23:30 94 L 03/21/23 23:25 94 L 03/21/23 23:00 94 L 03/21/23 22:30 95 03/21/23 22:00 95 03/21/23 21:30 90 L 03/21/23 21:02 96 03/21/23 21:00 94 L 03/21/23 20:45 95 03/21/23 20:42 97 03/21/23 20:41 97 03/21/23 20:32 97 03/21/23 20:30 94 L 03/21/23 20:15 98 03/21/23 20:00 96 03/21/23 19:00 98 03/21/23 18:45 98 03/21/23 18:30 96 03/21/23 18:15 86 L 03/21/23 18:09 03/21/23 17:47 99/42 99 03/21/23 17:32 100/43 98 03/21/23 17:17 90/53 97 03/21/23 17:02 103/52 98 03/21/23 16:48 97 03/21/23 07:32 97 Intake and Output 03/21/23 03/21/23 03/22/23 14:59 22:59 06:59 Intake Total 3552 3800 410 Output Total 1910 110 Balance 3552 1890 300 Intake: IV 3552 600 Intake, IV Titration 3200 100 Amount 0.9% NaCl with KCl 20 Meq 1100 100 /l 1,000 ml @ 50 mls/hr IV .Q20H [facility] Rx#: [id number] Sodium Chloride 0.9% 1, 2000 000 ml @ 999 mls/hr IV . Q1H1M ONE Rx#:[id number] ceFAZolin 2 gm In Sodium 100 Chloride 0.9% 50 ml @ 100 mls/hr IVPB Q8H [facility] Rx#: [id number] Blood Product 0 310 Rc As-1 Unit 0 310 [id number] Output: Urine 1210 110 Estimated Blood Loss 700 Other: Voiding Method Indwelling Catheter Weight 81.5 kg ABP, PAP, CO, CI - Last 8 Hours Arterial Blood Pressure 118/42 Arterial Blood Pressure 109/41 Arterial Blood Pressure 109/39 Arterial Blood Pressure 113/39 Arterial Blood Pressure 130/40 Arterial Blood Pressure 128/37 Arterial Blood Pressure 124/39 Arterial Blood Pressure 142/41 Arterial Blood Pressure 145/42 Arterial Blood Pressure 170/47 Arterial Blood Pressure 146/45 Arterial Blood Pressure 168/45 Arterial Blood Pressure 111/29 Arterial Blood Pressure 116/28 Arterial Blood Pressure 99/27 GENERAL EXAM: Alert, 72-year-old white female appearing stated age, comfortable in no apparent distress. HEAD: Normocephalic and atraumatic EYES: Normal reaction of pupils, equal size. NOSE: Clear with pink turbinates. THROAT: No erythema or exudates. NECK: No masses, no JVD. There is right IJ triple-lumen catheter CHEST: No chest wall deformity. LUNGS: Equal air entry with no crackles, wheeze, rhonchi or dullness. On 4 L/m nasal cannula. No conversational dyspnea or accessory muscle use.. CVS: S1 and S2 normal with no audible murmur, regular rhythm. No extra heart sounds ABDOMEN: No hepatosplenomegaly, active bowel sounds, no guarding or rigidity. SPINE: There is an AG silver dressing covering the postoperative incision that is at the T level to the sacrum. Incisional dressing is clean, dry. Incision is approximated. SKIN: No rashes CENTRAL NERVOUS SYSTEM: No focal deficits, tone is normal in all 4 extremities. Patellar DTRs 2+ bilaterally EXTREMITIES: There is no peripheral edema, clubbing, or cyanosis. Peripheral pulses are intact. Results - Laboratory Findings CBC and BMP: 03/21/23 17:36 03/21/23 17:36 Abnormal lab findings: Abnormal Labs 03/21/23 03/21/23 03/21/23 07:38 14:56 16:55 WBC RBC Hgb Hct Neutrophils # Lymphocytes # Sodium Chloride Carbon Dioxide BUN Glucose POC Glucose (mg/dL) 139 H 254 H 233 H Calcium Magnesium Crossmatch 03/21/23 03/21/23 03/21/23 17:36 17:36 17:36 WBC 11.7 H RBC 2.33 L Hgb 8.0 L Hct 23.0 L Neutrophils # 10.6 H Lymphocytes # 0.8 L Sodium 136 L Chloride 109 H Carbon Dioxide 11 L BUN 18 H Glucose 220 H POC Glucose (mg/dL) Calcium 7.9 L Magnesium 1.3 L Crossmatch 03/21/23 03/21/23 03/21/23 17:43 18:08 19:00 WBC RBC Hgb Hct Neutrophils # Lymphocytes # Sodium Chloride Carbon Dioxide BUN Glucose POC Glucose (mg/dL) 255 H 213 H Calcium Magnesium Crossmatch See Detail 03/21/23 20:42 WBC RBC Hgb Hct Neutrophils # Lymphocytes # Sodium Chloride Carbon Dioxide BUN Glucose POC Glucose (mg/dL) 182 H Calcium Magnesium Crossmatch - Diagnostic Findings Chest x-ray: image reviewed Assessment and Plan Assessment: Lumbar spondylosis and spondylolisthesis status postoperative day #1 following a T10 to pelvis decompression and fusion. Patient was successfully extubated in the recovery room without any immediate complications. Patient was hypotensive postoperatively, and was transfused 1 unit PRBC. I am told that the patient had estimated blood loss of 700 ML's during the procedure. Patient was also fluid resuscitated with a total of 2.5 L normal saline bolus so far. Blood pressures are more normotensive, and she has not required vasopressors at this time. Acute blood loss anemia, hemoglobin was 8 g/dL, and the patient was transfused 1 unit PRBCs due to hypotension. Postoperative hypotension, likely related to hypovolemia. Patient was fluid resuscitated with 2.5 L of normal saline so far. Has not required vasopressors at this time. Acute hypoxemic respiratory failure, currently on 4 L/m nasal cannula. Hypomagnesemia, will be corrected History of lumbar radiculopathy Diabetes mellitus type 2, normally maintained on metformin Benign essential hypertension Hyperlipidemia Plan: Patient's medications, labs, chest x-ray reviewed Patient's hypotension was treated with 1 unit PRBC and 2.5 L normal saline so far. Hopefully will not have to start vasopressors. We will repeat hemoglobin and hematocrit Continue supplemental oxygen Encourage incentive spirometer Patient is currently on bed rest and is supine CT of the thoracic and lumbar spine is ordered for the morning Protonix for GI prophylaxis DVT prophylaxis per surgery, SCDs are on NovoLog insulin to scale ACHS Replace magnesium per protocol Pain management is reportedly adequate with current regimen We will continue to follow while in the intensive care unit. I have personally seen and examined the patient, performed the documentation and the assessment and plan as written. Number of minutes spent on the visit:20 Time with Patient: Greater than 30
[2023-03-22] MEDS: HYDROmorphone 0.5 MG/0.5 ML SYRINGE IVP PRN ×2 (02:27→11:21)
[2023-03-22 04:25] LABS: Basophils % (A) 0 %; Eosinophils % (A) 0 %; HCT 23.5 % (34.0-46.0); HGB 7.8 gm/dL (11.4-16.0); Lymphocytes # (A) 1.4 k/uL (1.0-4.8); Lymphocytes % (A) 15 %; MCH 32.2 pg (25.0-35.0); MCHC 33.1 g/dL (31.0-37.0); MCV 97.4 fL (80.0-100.0); Mean Platelet Volume 7.6; Monocytes # (A) 0.4 k/uL (0-1.0); Monocytes % (A) 4 %; Neutrophils # (A) 7.2 k/uL (1.3-7.7); Neutrophils % (A) 80 %; Platelet Count 145 k/uL (150-450); RBC 2.41 m/uL (3.80-5.40); RDW 14.5 % (11.5-15.5); WBC 9.1 k/uL (3.8-10.6)
[2023-03-22 04:26] LABS: African American GFR (CKD) 88 (>60 ml/min/1.73 sqM); Anion Gap 6 mmol/L; Blood Urea Nitrogen 15 mg/dL (7-17); Carbon Dioxide 17 mmol/L (22-30); Chloride 114 mmol/L (98-107); Glucose 107 mg/dL (74-99); Non-African American GFR(CKD) 77 (>60 ml/min/1.73 sqM); Potassium 4.1 mmol/L (3.5-5.1); Sodium 137 mmol/L (137-145)
[2023-03-22 06:45] LABS: Glucose,Whole Blood 118 mg/dL (70-110)
[2023-03-22] MEDS: INSULIN ASPART (NovoLOG) 100 UNIT/ML VIAL SQ SCH ×4 (06:46→20:06)
[2023-03-22] MEDS ORDERED: WATER IVPB SCH ×2 (09:00)
[2023-03-22] MEDS ORDERED: SENNOSIDES-DOCUSATE SODIUM 1 EACH TAB PO SCH (09:00)
[2023-03-22] MEDS ORDERED: CAFFEINE CITRATE IVPB SCH ×2 (09:00)
[2023-03-22] MEDS ORDERED: DEXTROSE 5% IVPB SCH ×2 (09:00)
--- NOTE | 2023-03-22 09:09 | P.PN ---
Subjective Progress Note Date: 03/22/23 Principal diagnosis: 1. L1-S1 spondylosis with stenosis 2. L1-S1 spondylolisthesis 3. Lower extremity radiculopathy 4. Low back pain 5. Lower extremity weakness Patient seen and examined this morning. Patient is resting comfortably in bed, she is to remain supine with head of bed elevated at 10 and we will reassess tomorrow morning. Patient currently denies any headaches, blurred vision, nausea or vomiting. Patient does report pain mid to low back with activity. Patient was able to turn to her left with assistance for assessment of surgical dressing. Dressing is currently clean dry and intact. Patient reports that she has had improvement of radicular pain and numbness and tingling into the bilateral lower extremities since the procedure. Pateint requested to bring her knees up in bed and tolerated activity well. Educated patient regards to postop anemia that she is experiencing, patient has received 1 unit RBC yesterday e vening. Informed patient that an additional dose will be ordered this morning due to hemoglobin 7.8, hematocrit 23.5, and low BP. Patient verbalizes understanding. Archuleta catheter is present and patent. Patient denies any acute concerns at this time. Objective - Vital Signs Vital signs: Vital Signs Temp 98.6 F 03/22/23 04:00 Pulse 72 03/22/23 07:00 Resp 16 03/22/23 07:00 BP 113/46 03/22/23 07:00 Pulse Ox 99 03/22/23 07:38 FiO2 Intake & Output 03/21/23 03/22/23 03/22/23 18:59 06:59 18:59 Intake Total 5152 2910 50 Output Total 1530 850 75 Balance 3622 2060 -25 Weight 81.5 kg 92.5 kg Intake: IV 4152 Intake, IV Titration 1000 2600 50 Amount 0.9% NaCl with KCl 20 Meq 1000 500 50 /l 1,000 ml @ 50 mls/hr IV .Q20H [facility] Rx#: [id number] Sodium Chloride 0.9% 1, 2000 000 ml @ 999 mls/hr IV . Q1H1M [facility] Rx#:[id number] ceFAZolin 2 gm In Sodium 100 Chloride 0.9% 50 ml @ 100 mls/hr IVPB Q8H [facility] Rx#: [id number] Blood Product 310 Rc As-1 Unit 310 [id number] Output: Urine 830 850 75 Estimated Blood Loss 700 Other: Voiding Method Indwelling Catheter Indwelling Catheter ABP, PAP, CO, CI - Last Documented Arterial Blood Pressure 96/40 - Exam Physical Examination General: The patient is awake and alert, in no acute distress Skin: Skin is warm and dry with no obvious rashes or lesions. Surgical incision to the thoracolumbar region. Dressing is CDI. Eye: Pupils are equal, round and reactive to light, extra-ocular movements are intact; there is normal conjunctiva bilaterally. Neck: The neck is supple, there is no tenderness and ROM intact. Cardiovascular: There is a regular rate and rhythm. No murmur, rub or gallop is appreciated. Respiratory: Lungs are clear to auscultation, respirations are non-labored, breath sounds are equal. Gastrointestinal: Soft, non-distended, non-tender abdomen. Back: There is mild tenderness to palpation in the parathoracic and paralumbar region due to procedure. There is no obvious deformity. . Musculoskeletal: ROM limited secondary to pain and stiffness from surgical procedure. Muscle strength in all major muscle groups of bilateral upper extremities 5/5, bilateral lower extremities 4/5. Neurological: CN 2-12 intact. There are no obvious motor or sensory deficits. Movement and coordination equal and intact. Sensory exam to light touch intact C5-T1 and intact from L2-S1. Reflexes 2/4 in bilateral upper and lower extremities. Negative Hoffmans, babinski, and clonus signs. Psychiatric: Cooperative, appropriate mood & affect, normal judgment. - Labs CBC & Chem 7: 03/22/23 04:05 03/22/23 04:05 Labs: Abnormal Lab Results - Last 24 Hours (Table) 03/21/23 03/21/23 03/21/23 Range/Units 14:56 16:55 17:36 WBC 11.7 H (3.8-10.6) k/uL RBC 2.33 L (3.80-5.40) m/uL Hgb 8.0 L (11.4-16.0) gm/dL Hct 23.0 L (34.0-46.0) % Plt Count (150-450) k/uL Neutrophils # 10.6 H (1.3-7.7) k/uL Lymphocytes # 0.8 L (1.0-4.8) k/uL Sodium (137-145) mmol/L Chloride (98-107) mmol/L Carbon Dioxide (22-30) mmol/L BUN (7-17) mg/dL Glucose (74-99) mg/dL POC Glucose (mg/dL) 254 H 233 H (70-110) mg/dL Calcium (8.4-10.2) mg/dL Magnesium (1.6-2.3) mg/dL Crossmatch 03/21/23 03/21/23 03/21/23 Range/Units 17:36 17:36 17:43 WBC (3.8-10.6) k/uL RBC (3.80-5.40) m/uL Hgb (11.4-16.0) gm/dL Hct (34.0-46.0) % Plt Count (150-450) k/uL Neutrophils # (1.3-7.7) k/uL Lymphocytes # (1.0-4.8) k/uL Sodium 136 L (137-145) mmol/L Chloride 109 H (98-107) mmol/L Carbon Dioxide 11 L (22-30) mmol/L BUN 18 H (7-17) mg/dL Glucose 220 H (74-99) mg/dL POC Glucose (mg/dL) 255 H (70-110) mg/dL Calcium 7.9 L (8.4-10.2) mg/dL Magnesium 1.3 L (1.6-2.3) mg/dL Crossmatch 03/21/23 03/21/23 03/21/23 Range/Units 18:08 19:00 20:42 WBC (3.8-10.6) k/uL RBC (3.80-5.40) m/uL Hgb (11.4-16.0) gm/dL Hct (34.0-46.0) % Plt Count (150-450) k/uL Neutrophils # (1.3-7.7) k/uL Lymphocytes # (1.0-4.8) k/uL Sodium (137-145) mmol/L Chloride (98-107) mmol/L Carbon Dioxide (22-30) mmol/L BUN (7-17) mg/dL Glucose (74-99) mg/dL POC Glucose (mg/dL) 213 H 182 H (70-110) mg/dL Calcium (8.4-10.2) mg/dL Magnesium (1.6-2.3) mg/dL Crossmatch See Detail 03/22/23 03/22/23 03/22/23 Range/Units 04:05 04:05 06:43 WBC (3.8-10.6) k/uL RBC 2.41 L (3.80-5.40) m/uL Hgb 7.8 L (11.4-16.0) gm/dL Hct 23.5 L (34.0-46.0) % Plt Count 145 L (150-450) k/uL Neutrophils # (1.3-7.7) k/uL Lymphocytes # (1.0-4.8) k/uL Sodium (137-145) mmol/L Chloride 114 H (98-107) mmol/L Carbon Dioxide 17 L (22-30) mmol/L BUN (7-17) mg/dL Glucose 107 H (74-99) mg/dL POC Glucose (mg/dL) 118 H (70-110) mg/dL Calcium 7.0 L (8.4-10.2) mg/dL Magnesium (1.6-2.3) mg/dL Crossmatch Assessment and Plan Assessment: Postop day 1: [id number] decompression and fusion 1. Post-op anemia 2. L1-S1 spondylosis with stenosis 3. L1-S1 spondylolisthesis 4. Lower extremity radiculopathy 5. Low back pain 6. Lower extremity weakness Plan: -Appreciate golf tournament consultant and team management. -Transfuse 1u RBC and starting patient on ferrous sulfate. -Activity: Maintain patient supine with HOB elevated at 10 degrees for today and we will re-evaluate in morning 03/23/22. -Patient does have LSO brace that was fitted in office for when she is able to be up and about. -Pain control: Adequate at this time -Meds: reviewed -GI ppx: senna, Miralax -DC archuleta when up and about, bedside commode if needed -DVT PPX: OK to restart Heparin tonight -Hygiene: Maintain dressing clean and dry. Meticulous cleaning after BMs away from the incision site -Encourage IS 10x/hr -Dispo: clinically pending *I reviewed and discussed this case with my attending Dr. Duong, whom has reviewed this chart and films and is in agreement with assessment and plan of care as outlined above. I have personally seen and examined the patient, performed the documentation and the assessment and plan as written. Number of minutes spent on the visit: 20m.
[2023-03-22] MEDS: GABAPENTIN 100 MG CAP PO SCH ×3 (10:14→20:05)
[2023-03-22] MEDS: FERROUS SULFATE 325 MG TAB PO SCH ×2 (10:14→16:55)
[2023-03-22] MEDS: PANTOPRAZOLE 40 MG/10 ML VIAL IV SCH (10:14)
--- NOTE | 2023-03-22 11:10 | P.PN ---
Subjective Progress Note Date: 03/22/23 Subjective: Patient seen and examined at bedside. No acute events overnight. She claims that she has some burning pain around the incision site home denies any numbness or tingling. She has a Garnett catheter in place. No bowel movements. Only able to get ice chips for now. Denies any nausea. Denies any chest pain or shortness of breath. Pertinent positives and negatives as discussed above, a complete review of systems was performed and all other systems are negative. Vitals Signs Reviewed. General: nontoxic, no distress, appears at stated age Derm: warm, dry, back dressing not observed Head: atraumatic, normocephalic, symmetric Eyes: EOMI, no lid lag, anicteric sclera Mouth: no lip lesion, mucus membranes moist Cardiovascular: S1S2 reg, no murmur Lungs: CTA bilateral, no rhonchi, no rales , no accessory muscle use, supplemental oxygen Abdominal: soft, nontender to palpation, no guarding, no appreciable organomegaly Ext: no gross muscle atrophy, no edema, no contractures Neuro: CN II-XI grossly intact, no focal neuro deficits Psych: Alert, oriented, appropriate affect Data Reviewed Today: Pertinent Labs: Hemoglobin 7.8, bicarb 17, creatinine 0.78, blood sugars range between 107-182 Imaging: No new imaging Assessment and Plan: Status post T10 to pelvis decompression fusion Leukocytosis, resolved Acute blood loss anemia, anticipated outcome of surgery, hemoglobin stable Hypertension Type 2 diabetes Hypomagnesemia Dyslipidemia Metabolic acidosis, non-anion gap, improving -Pain control with oral Tylenol, oral [place] as needed, IV Dilaudid as needed -Continue to monitor hemoglobin -Has postoperative hypotension, hold antihypertensives -On sliding scale insulin, hold home metformin -Magnesium repleted -Continue gemfibrozil -Acidosis likely in the setting of normal saline, IV fluids switched to lactated Ringer -Repeat BMP tomorrow Thank you for allowing us to participate in the care of this pleasant patient. Do not hesitate to contact us with questions. Someone can be reached from the [facility] [place] hospitalist group all hours of the day at [phone] or via perfect serve. Objective - Vital Signs Vital signs: Vital Signs Temp 98.5 F 03/22/23 10:24 Pulse 77 03/22/23 10:24 Resp 19 07/19/23 10:24 BP 102/45 03/22/23 10:24 Pulse Ox 95 03/22/23 10:24 FiO2 Intake & Output 03/21/23 03/22/23 03/22/23 18:59 06:59 18:59 Intake Total 5152 2910 50 Output Total 1530 850 75 Balance 3622 2059 Weight 81.5 kg 92.5 kg Intake: IV 4152 Intake, IV Titration 1000 2600 50 Amount 0.9% NaCl with KCl 20 Meq 1000 500 50 /l 1,000 ml @ 50 mls/hr IV .Q20H [facility] Rx#: [id number] Sodium Chloride 0.9% 1, 2000 000 ml @ 999 mls/hr IV . Q1H1M [facility] Rx#:[id number] ceFAZolin 2 gm In Sodium 100 Chloride 0.9% 50 ml @ 100 mls/hr IVPB Q8H [facility] Rx#: [id number] Blood Product 310 0 Rc As-1 Unit 310 [id number] Rc As-1 Unit 0 [id number] Output: Urine 830 850 75 Estimated Blood Loss 700 Other: Voiding Method Indwelling Catheter Indwelling Catheter ABP, PAP, CO, CI - Last Documented Arterial Blood Pressure 96/40 - Labs CBC & Chem 7: 03/22/23 04:05 03/22/23 04:05 Labs: Abnormal Lab Results - Last 24 Hours (Table) 03/21/23 03/21/23 03/21/23 Range/Units 14:56 16:55 17:36 WBC 11.7 H (3.8-10.6) k/uL RBC 2.33 L (3.80-5.40) m/uL Hgb 8.0 L (11.4-16.0) gm/dL Hct 23.0 L (34.0-46.0) % Plt Count (150-450) k/uL Neutrophils # 10.6 H (1.3-7.7) k/uL Lymphocytes # 0.8 L (1.0-4.8) k/uL Sodium (137-145) mmol/L Chloride (98-107) mmol/L Carbon Dioxide (22-30) mmol/L BUN (7-17) mg/dL Glucose (74-99) mg/dL POC Glucose (mg/dL) 254 H 233 H (70-110) mg/dL Calcium (8.4-10.2) mg/dL Magnesium (1.6-2.3) mg/dL Crossmatch 03/21/23 03/21/23 03/21/23 Range/Units 17:36 17:36 17:43 WBC (3.8-10.6) k/uL RBC (3.80-5.40) m/uL Hgb (11.4-16.0) gm/dL Hct (34.0-46.0) % Plt Count (150-450) k/uL Neutrophils # (1.3-7.7) k/uL Lymphocytes # (1.0-4.8) k/uL Sodium 136 L (137-145) mmol/L Chloride 109 H (98-107) mmol/L Carbon Dioxide 11 L (22-30) mmol/L BUN 18 H (7-17) mg/dL Glucose 220 H (74-99) mg/dL POC Glucose (mg/dL) 255 H (70-110) mg/dL Calcium 7.9 L (8.4-10.2) mg/dL Magnesium 1.3 L (1.6-2.3) mg/dL Crossmatch 03/21/23 03/21/23 03/21/23 Range/Units 18:08 19:00 20:42 WBC (3.8-10.6) k/uL RBC (3.80-5.40) m/uL Hgb (11.4-16.0) gm/dL Hct (34.0-46.0) % Plt Count (150-450) k/uL Neutrophils # (1.3-7.7) k/uL Lymphocytes # (1.0-4.8) k/uL Sodium (137-145) mmol/L Chloride (98-107) mmol/L Carbon Dioxide (22-30) mmol/L BUN (7-17) mg/dL Glucose (74-99) mg/dL POC Glucose (mg/dL) 213 H 182 H (70-110) mg/dL Calcium (8.4-10.2) mg/dL Magnesium (1.6-2.3) mg/dL Crossmatch See Detail 03/22/23 03/22/23 03/22/23 Range/Units 04:05 04:05 06:43 WBC (3.8-10.6) k/uL RBC 2.41 L (3.80-5.40) m/uL Hgb 7.8 L (11.4-16.0) gm/dL Hct 23.5 L (34.0-46.0) % Plt Count 145 L (150-450) k/uL Neutrophils # (1.3-7.7) k/uL Lymphocytes # (1.0-4.8) k/uL Sodium (137-145) mmol/L Chloride 114 H (98-107) mmol/L Carbon Dioxide 17 L (22-30) mmol/L BUN (7-17) mg/dL Glucose 107 H (74-99) mg/dL POC Glucose (mg/dL) 118 H (70-110) mg/dL Calcium 7.0 L (8.4-10.2) mg/dL Magnesium (1.6-2.3) mg/dL Crossmatch
[2023-03-22 11:13] LABS: Glucose,Whole Blood 136 mg/dL (70-110)
[2023-03-22] MEDS: LACTATED RINGERS 1,000 ML IV SCH (11:30)
[2023-03-22] MEDS: CAFFEINE-SODIUM BENZOATE 500 MG in SODIUM CHLORIDE 0.9% 1,000 ML IVPB SCH (11:58)
[2023-03-22] MEDS: HYDROmorphone 1 MG/ML 1 ML SYRINGE IVP PRN ×3 (12:29→23:55)
[2023-03-22] MEDS: HYDROcodone/APAP 10-325MG 1 EACH TAB PO PRN ×2 (12:30→20:05)
[2023-03-22 16:16] LABS: Glucose,Whole Blood 125 mg/dL (70-110)
--- NOTE | 2023-03-22 17:56 | CT ---
EXAMINATION TYPE: CT thor lumbar spine wo con DATE OF EXAM: 03/22/2023 COMPARISON: None HISTORY: 72-year-old female post-op [id number]-[id number] decompression and fusion. TECHNIQUE: Contiguous axial scanning of the thoracic and lumbar spine without IV contrast. Coronal an d sagittal reconstructions performed. CT DLP: 2586 mGycm Automated exposure control for dose reduction was used. FINDINGS: There are changes of DISH from T4 through T10 levels. Subsequent W20-saslov posterior fusion hardware. Additional bone graft material along the posterior e lements from T11 down through S1 for the lateral osseous fusion. Laminectomy changes from L1 through L5 levels. Foci of soft tissue air and posterior soft tissue swelling relating to recent operation. Additional scattered air throughout the epidural space up into the cervical spine related to recent o peration. Posterior midline skin trinh are noted. There are trace pleural effusions. A right CVC catheter has its tip in the lower SVC. Cholecystectomy clips. Vertebral body heights are preserved and alignment is maintained. There is fixed grade 1 retrolisthesis L1-L2 and L2-L3. Fixed grade 1 anterolisthesis L3-L4. IMPRESSION: 1. RECENT POSTOPERATIVE CHANGES OF C44-kbarwr posterior fusion. Bone graft for lateral osseous fusion from T11 down through S1. Laminectomy change from L1 through L5 levels. 2. Postoperative soft tissue swelling, soft tissue air, and air in the epidural space up into the cer vical spine level related to recent operation. 3. [facility] from T4 through T10 levels.
[2023-03-22 19:51] LABS: Glucose,Whole Blood 177 mg/dL (70-110)
[2023-03-22] MEDS: SENNOSIDES-DOCUSATE SODIUM 1 EACH TAB PO SCH (20:11)
[2023-03-23] MEDS: HYDROcodone/APAP 10-325MG 1 EACH TAB PO PRN (04:16)
[2023-03-23 04:25] LABS: Basophils % (A) 0 %; Eosinophils # (A) 0.3 k/uL (0-0.7); Eosinophils % (A) 3 %; HCT 27.6 % (34.0-46.0); Lymphocytes # (A) 1.5 k/uL (1.0-4.8); Lymphocytes % (A) 14 %; MCH 32.2 pg (25.0-35.0); MCHC 33.7 g/dL (31.0-37.0); MCV 95.6 fL (80.0-100.0); Mean Platelet Volume 7.7; Monocytes # (A) 0.4 k/uL (0-1.0); Monocytes % (A) 4 %; Neutrophils # (A) 8.1 k/uL (1.3-7.7); Neutrophils % (A) 77 %; Platelet Count 137 k/uL (150-450); RBC 2.89 m/uL (3.80-5.40); RDW 14.8 % (11.5-15.5); WBC 10.5 k/uL (3.8-10.6)
[2023-03-23 04:29] LABS: HGB 9.3 gm/dL (11.4-16.0)
[2023-03-23 04:33] LABS: African American GFR (CKD) >90 (>60 ml/min/1.73 sqM); Anion Gap 5 mmol/L; Blood Urea Nitrogen 8 mg/dL (7-17); Calcium 7.2 mg/dL (8.4-10.2); Carbon Dioxide 19 mmol/L (22-30); Chloride 112 mmol/L (98-107); Glucose 130 mg/dL (74-99); Magnesium 1.4 mg/dL (1.6-2.3); Non-African American GFR(CKD) 79 (>60 ml/min/1.73 sqM); Potassium 3.6 mmol/L (3.5-5.1); Sodium 136 mmol/L (137-145)
[2023-03-23] MEDS ORDERED: Magnesium Replacement Protocol 1 EACH MISC MISCELLANE PRN (04:43)
[2023-03-23] MEDS ORDERED: Potassium Replacement Protocol 1 EACH MISC MISCELLANE PRN (04:43)
[2023-03-23] MEDS: POTASSIUM CHLORIDE 10 MEQ in WATER FOR INJECTION 1 100ML.BAG IVPB SCH ×2 (05:23→06:34)
[2023-03-23] MEDS: MAGNESIUM SULFATE-D5W PMX 1 GM in DEXTROSE/WATER 1 100ML.BAG IVPB SCH ×6 (05:24→13:03)
[2023-03-23] MEDS: ACETAMINOPHEN TAB 325 MG TAB PO SCH ×4 (05:47→23:00)
[2023-03-23 06:32] LABS: Glucose,Whole Blood 152 mg/dL (70-110)
[2023-03-23] MEDS: LACTATED RINGERS 1,000 ML IV SCH ×2 (06:35→16:52)
[2023-03-23] MEDS: FERROUS SULFATE 325 MG TAB PO SCH ×2 (06:50→18:01)
[2023-03-23] MEDS: INSULIN ASPART (NovoLOG) 100 UNIT/ML VIAL SQ SCH ×4 (06:52→21:59)
--- NOTE | 2023-03-23 08:14 | P.PN ---
Subjective Progress Note Date: 03/23/23 Principal diagnosis: 1. L1-S1 spondylosis with stenosis 2. L1-S1 spondylolisthesis 3. Lower extremity radiculopathy 4. Low back pain 5. Lower extremity weakness Patient seen and examined this morning. Patient is resting comfortably in bed. She continues to deny any headaches, blurred vision, nausea or vomiting. Patient may raise HOB 10 degrees every two hours as she can tolerate. If symptoms of headaches, blurred vision, nausea or vomiting occur, return patient to supine position. She does report significant pain localized in the central region of the cervical spine that radiates between her shoulder blades. Discussed that this could be caused from positioning during procedure. Medications will be adjusted. Patient reports that she continues to notice improvement of radicular pain and numbness and tingling into the bilateral lower extremities since the procedure. She states she is looking forward to bear weight on her right lower extremity to evaluate if there is a change from prior to surgery. Hgb has increased to 9.3 this morning. Her vitals are stable. Archuleta catheter is present and patent. Patient denies any acute concerns at this time. Objective - Vital Signs Vital signs: Vital Signs Temp 99.3 F 03/23/23 04:00 Pulse 75 03/23/23 07:00 Resp 18 03/23/23 07:00 BP 107/54 03/23/23 07:00 Pulse Ox 98 03/23/23 07:00 FiO2 Intake & Output 03/22/23 03/23/23 03/23/23 18:59 06:59 18:59 Intake Total 3212 800 200 Output Total 1430 1500 100 Balance 1782 -700 100 Weight 98.4 kg Intake: Intake, IV Titration 1702 800 200 Amount 0.9% NaCl with KCl 20 Meq 200 /l 1,000 ml @ 50 mls/hr IV .Q20H [facility] Rx#: [id number] Caffeine-Sodium Benzoate 1002 500 mg In Sodium Chloride 0.9% 1,000 ml @ 1002 mls /hr IVPB DAILY [facility] Rx#: [id number] Lactated Ringers 1,000 ml 400 550 @ 50 mls/hr IV .Q20H [facility] Rx#:[id number] Magnesium Sulfate-D5w Pmx 100 100 1 gm In Dextrose/Water 1 100ml.bag @ 100 mls/hr IVPB Q1H [facility] Rx#: [id number] Potassium Chloride 10 meq 100 100 In Water For Injection 1 100ml.bag @ 100 mls/hr IVPB Q1H [facility] Rx#: [id number] ceFAZolin 2 gm In Sodium 100 50 Chloride 0.9% 50 ml @ 100 mls/hr IVPB Q8H [facility] Rx#: [id number] Oral 1200 0 Blood Product 310 Rc As-1 Unit 310 [id number] Output: Urine 1430 1500 100 Other: Voiding Method Indwelling Catheter Indwelling Catheter ABP, PAP, CO, CI - Last Documented Arterial Blood Pressure 96/40 - Exam Physical Examination General: The patient is awake and alert, in no acute distress Skin: Skin is warm and dry with no obvious rashes or lesions. Surgical incision to the thoracolumbar region. Dressing is CDI. Eye: Pupils are equal, round and reactive to light, extra-ocular movements are intact; there is normal conjunctiva bilaterally. Neck: The neck is supple, there is no tenderness and ROM intact. Cardiovascular: There is a regular rate and rhythm. No murmur, rub or gallop is appreciated. Respiratory: Lungs are clear to auscultation, respirations are non-labored, breath sounds are equal. Gastrointestinal: Soft, non-distended, non-tender abdomen. Back: There is mild tenderness to palpation in the parathoracic and paralumbar region due to procedure. There is no obvious deformity. . Musculoskeletal: ROM limited secondary to pain and stiffness from surgical procedure. Muscle strength in all major muscle groups of bilateral upper extremities 5/5, bilateral lower extremities 4/5. Neurological: CN 2-12 intact. There are no obvious motor or sensory deficits. Movement and coordination equal and intact. Sensory exam to light touch intact C5-T1 and intact from L2-S1. Reflexes 2/4 in bilateral upper and lower extremities. Negative Hoffmans, babinski, and clonus signs. Psychiatric: Cooperative, appropriate mood & affect, normal judgment. - Labs CBC & Chem 7: 03/23/23 04:00 03/23/23 04:00 Labs: Abnormal Lab Results - Last 24 Hours (Table) 03/21/23 03/22/23 03/22/23 Range/Units 19:00 11:12 16:15 RBC (3.80-5.40) m/uL Hgb (11.4-16.0) gm/dL Hct (34.0-46.0) % Plt Count (150-450) k/uL Neutrophils # (1.3-7.7) k/uL Sodium (137-145) mmol/L Chloride (98-107) mmol/L Carbon Dioxide (22-30) mmol/L Glucose (74-99) mg/dL POC Glucose (mg/dL) 136 H 125 H (70-110) mg/dL Calcium (8.4-10.2) mg/dL Magnesium (1.6-2.3) mg/dL Crossmatch See Detail 03/22/23 03/23/23 03/23/23 Range/Units 19:50 04:00 04:00 RBC 2.89 L (3.80-5.40) m/uL Hgb 9.3 L D (11.4-16.0) gm/dL Hct 27.6 L (34.0-46.0) % Plt Count 137 L (150-450) k/uL Neutrophils # 8.1 H (1.3-7.7) k/uL Sodium 136 L (137-145) mmol/L Chloride 112 H (98-107) mmol/L Carbon Dioxide 19 L (22-30) mmol/L Glucose 130 H (74-99) mg/dL POC Glucose (mg/dL) 177 H (70-110) mg/dL Calcium 7.2 L (8.4-10.2) mg/dL Magnesium 1.4 L (1.6-2.3) mg/dL Crossmatch 03/23/23 Range/Units 06:30 RBC (3.80-5.40) m/uL Hgb (11.4-16.0) gm/dL Hct (34.0-46.0) % Plt Count (150-450) k/uL Neutrophils # (1.3-7.7) k/uL Sodium (137-145) mmol/L Chloride (98-107) mmol/L Carbon Dioxide (22-30) mmol/L Glucose (74-99) mg/dL POC Glucose (mg/dL) 152 H (70-110) mg/dL Calcium (8.4-10.2) mg/dL Magnesium (1.6-2.3) mg/dL Crossmatch Assessment and Plan Assessment: Postop day 2: [id number] decompression and fusion 1. Post-op anemia 2. L1-S1 spondylosis with stenosis 3. L1-S1 spondylolisthesis 4. Lower extremity radiculopathy 5. Low back pain 6. Lower extremity weakness Plan: -Appreciate data warehouse consultant and team management. -Activity: Patient may elevate HOB 10 degrees every two hours as tolerated. If symptoms of headaches, blurred vision, nausea or vomiting occur return patient to supine position. -Patient does have LSO brace that was fitted in office for when she is able to be up and about. -Pain control: Adequate at this time -Meds: reviewed -GI ppx: senna, Miralax -DC archuleta when up and about, bedside commode if needed -DVT PPX: Heparin -Hygiene: Maintain dressing clean and dry. Meticulous cleaning after BMs away from the incision site -Encourage IS 10x/hr -Dispo: clinically pending *I reviewed and discussed this case with my attending Dr. Duong, whom has reviewed this chart and films and is in agreement with assessment and plan of care as outlined above. I have personally seen and examined the patient, performed the documentation and the assessment and plan as written. Number of minutes spent on the visit: 20m.
[2023-03-23] MEDS: PANTOPRAZOLE 40 MG/10 ML VIAL IV SCH (08:23)
[2023-03-23] MEDS: FENOFIBRATE 160 MG TAB PO SCH (08:24)
[2023-03-23] MEDS: GABAPENTIN 100 MG CAP PO SCH ×3 (08:24→21:58)
--- NOTE | 2023-03-23 08:31 | P.OP ---
Date of Procedure: 03/21/23 Preoperative Diagnosis: 1. L1-S1 severe spondylosis with stenosis 2. Neurogenic claudication 3. Low back pain 4. LE weakness with paresthesias Postoperative Diagnosis: 1. L1-S1 severe spondylosis with stenosis 2. Neurogenic claudication 3. Low back pain 4. LE weakness with paresthesias Procedure(s) Performed: 1. L2-3, L3-4, L4-5 intradiscal 3 column osteotomy for deformity correction (68405, 49859l2) 2. L2-S1 posteriolateral and interbody fusion (32880, 93835s0) 3. T10-L2 posteriolateral instrumented fusion (23150, 50296m8) 4. Segmental Instrumentation T10-P (73868) 5. Attachment of the caudal end of instrumentation to bony pelvis (43629) 6. Bilateral laminectomy complete facetectomy and foraminotomy L1-S1 (56787, 06398z4) 7. Dural repair with patch graft L3-4 region (18119, 99577) 8. Insertion of interbody devices L2-3, L3-4, L4-5, L5-S1 (35549d0) 9. Use of CostumeWorks 3D navigation for screw placement (11076) Use of IONM all screws testing >15 mA Implants: -GLOBUS CREO SCREW AND LAURA SYSTEM -AMPLIFY GEN1 AND SLIM -LIFE SPINE X2 PROLIFT CAGES -MAGNATOS, ARTHROCELL, ALLOCELL, IFACTOR AUTOGRAFT Anesthesia: GETA Surgeon: Lei Duong Cold Header Operator #1: Modesto Cho (Was present and assisted with all aspects of the case from position to closure. ) Estimated Blood Loss (ml): 700 IV fluids (ml): 3,850 Urine output (ml): 720 Pathology: none sent Condition: stable Disposition: PACU Indications for Procedure: Ms. Schultz is presenting for evaluation of lumbar pain. It was my pleasure to have seen and examined Ms. Schultz. In our visit today we have had a chance to go over subjective complaints, physical examination findings and treatments including the natural course history without intervention and various interventional options. The patients imaging demonstrates: XRay Lumbar Multiview (AP, Lateral, Flexion, Extension) with AP pelvis; 5 views taken at [facility] on 12/30/22: Severe multilevel spondylitic and degenerative changes with flattening of the normal lordosis. Multilevel diminished disc height. Grade 1 anterolisthesis of L3 onto L4. Grade 1 retrolisthesis of L4 onto L5. L2-L5 moderate facet arthropathy. L3-L4 severe spinal canal stenosis. Degenerative lumbar scoliosis with convex to the right. No acute osseous abnormalities. Pelvis: The visualized sacrum and iliac wings are within normal limits. Right total hip arthroplasty noted hardware is intact with no migration[facility]: Impression: 1. L2-L3: Disc height loss and dislocation. Diffuse circumferential bolts. Mild to moderate bilateral neural foraminal narrowing. Facet hypertrophy and ligamentum flavum thickening. Mild narrowing of the central canal. 2. L3-L4: Moderate disc height loss and dislocation. Diffuse circumferential bulge. Moderate bilateral neural foraminal narrowing. Moderately severe narrowing of the central canal to 6 mm. Moderate facet hypertrophy. 3. L4-L5: Moderate to severe disc height loss and dislocation. Moderate diffuse circumferential bulge. Moderate facet hypertrophy. Mild to moderate bilateral neural foraminal narrowing. Mild narrowing of the central canal. 4. L5-S1: Mild disc height loss and dislocation. Moderate facet hypertrophy. Small bilateral facet joint effusions, right greater than left. Moderate right neural foraminal narrowing. Mild left neural foraminal narrowing. On physical exam, Ms. Schultz demonstrates: Patient reports a increasing aching, burning, sharp, throbbing lumbar pain ongoing for with an onset of 2018 after her right hip replacement. Patient states this pain has increased associated with an increase in left thigh and groin pain. She reports a burning in the thighs bilaterally and a tingling in the thighs. In addition to their lumbar pain, they do report that it radiates into the bilateral lower extremities, associated with numbness and tingling. Overall the patient has seen a progressive increase in symptoms since their onset and would like to schedule surgery today. Ms. Schultz symptoms are exacerbated with prolonged stiitng, standing or increased activity, due to this they notes that it is increasingly difficult for Ms. Schultz to complete many of their daily tasks. Patient only finds relief with laying down. I have explained to the patient that as their condition progresses it will cause further neurological deficits and eventual paralysis. Based on the patients imaging, physical exam, and the rapid progression and disabling nature of their symptoms, at this time I recommend surgery in the form of a: lumbar P86-Saiobb Decompression and Fusion. I discussed the risk and benefits of this procedure at length with Ms. Schultz. The patient agreed to considered pursuing the procedure abovementioned. Prior to surgery, she should follow up with her PCP (Cardio, ID, IM etc) for clearance. Questions were invited and answered, and the patient wishes to proceed as outlined below. Currently, I am recommendin.lumbar N63-Dexfnt Decompression and Fusion Description of Procedure: B67-Ejhlzd Decompression and fusion The patient was seen and examined in the preoperative area. All preoperative protocols were followed. Informed consent was obtained, risks and benefits of the procedure were discussed at length. Risks including bleeding infection damage to the surrounding tissue and risk of re-operation were discussed with the patient. Risk of anesthesia up to and including was discussed with the patient. These are outlined in the risk review. They were willing to accept these risks and all the risks of surgery. The patient was given a weight -based dose of antibiotics in the form of 3 g Ancef. The patient was seen and evaluated by the anesthesia team who deemed them fit for surgery. The site was marked, the patient was willing to proceed with the procedure. The patient was transferred to the operative suite by the Department of anesthesia. They were then drifted off to sleep by the department anesthesia and GETA was performed. The patient tolerated this well. Garnett catheter was placed by nursing staff, a-traumatically. Once confirmation of lines and ventilation the patient was transferred to a prone Trios spine table very ca refully. The head was secured and stable. Xray confirmed alignment. All bony prominences including wrists, elbows, axilla, chest, hips, and thighs, and feet were padded very well. Special attention was paid to the genitalia, and these were padded accordingly. SCDs were placed on bilateral lower extremities and were connected. Arms were well padded and placed at 90/90 up and out and well padded. Safety strap and tape placed on the patient. Once in position, again we confirmed good ventilation capabilities and that lines were running appropriately. The patients lumbosacral pelvic was then exposed. Hair was removed for incision. 1010s were placed outlining the incision site. Standard alcohol was used to clean the incision site and allowed to dry. C-arm was used to bio-farooq the patient and confirm level for incision which was marked with a skin marker. Operative briefing was performed with all teams and everyone in agreement to proceed. The patient was then prepped and draped in a normal sterile fashion. Timeout was then performed, and all parties agreed with the procedure to be performed. Midline skin incision was then made over the previously bookmarked area and dissection taken down to the lumbosacral fascia which was identified and cleaned with a cordero. Once midline was identified, fasciotomy was made over the SP of Q29-feowog. Subperiosteal dissection was then taken down over the lamina and facet joints and TPs were exposed and trough made posterolateral. TPs were then decorticated L1-S1 and sacral ala with a high speed prince for lateral fusion. Dissection was taken out over the sacrum to the pelvis. SI joint identified and modified Rothman starting point for pelvic screws identified as well. Retractors placed. Wound was irrigated and lateral image with penfield 4 placed at the pars of L4 confirmed levels for operation. SP clamp was then placed for the CostumeWorks navigation tracker and secured at L2 for the first set of screws. The wound was then filled with NSS and Z-drape placed. A 3D Zhiem spin was then obtained and registered. Once confirmation of accuracy screws were then placed from T10-L2 using navigation. Navigated high speed prince was used to make a balloon pilot hole followed by a navigated awl-tap passed through the pedicle into the body. A ball tip probe then confirmed within the pedicle. Globus Screws then measured and placed using a navigated screwdriver. After screws were placed from T10-L2 the tracker was replaced at S1 and a second 3D Zhiem spin was then obtained and registered. Once confirmation of accuracy screws were then placed from L3-Pelvis using navigation. AP image confirmed safe placement of screws. Lateral images as well as navigation were then used to place bilateral pelvic screws. Starting point selected just lateral to the SI joint and S2 pseudo facet. Lateral image taken and prince used to make the balloon pilot hole. Gearshift then used to pass into the pelvis under lateral imaging just above the sciatic notch. 30 deg/30deg iliac oblique then taken to confirm within the teardrop and ball tip probe used to probe good bone. Screw was then measured and selected and placed under lateral imaging. This was repeated on the contralateral side. Screws were then visualized and were safe. A second Zheim spin was obtained and confirmed safe screw placement. Screws were then tested, and reliably tested screws tested above 15 mA. The wound was irrigated and attention was turned to decompression, correction and interbody fusion. Starting at L5-S1, bilateral laminectomy, complete facetectomy and for aminotomies were performed using high speed bur, Kerrison rongure. There was exuberant bone formation, osteophytes and scar tissue surrounding these joints as well as the dura. Once exposed the neural elements were protected and osteotome was used to make osteotomy in L5 and S1 and for complete disc removal. A box osteotome was then used to widen this bilaterally. This was passed into the anterior 1/3 of L5. This allowed for loosening of this level and correction. Cage was then selected based on shaving and trials. Bleeding endplates were encountered and cartilage removed. Autograft, allograft were then placed anterior to the cage. The cage was then impacted into place under lateral imaging while protecting neural elements. The cage was then expanded into position and showed good lift and correction. Rastafarian of lordosis and height achieved. Meticulous hemostasis then performed. Cage was backfilled with DBM and the area irrigated. We then proceeded to L4-5. At L4-5, bilateral laminectomy, complete facetectomy and foraminotomy was performed as described above. Again, exuberant scar tissue and bone formation was encountered and at this level specifically around the pars. There was also a large disc osteophyte complex that was identified once disc space was found. The dura was carefully dissected off this anteriorly and b/l. Once encountered, the disc space was then accessed in a similar fashion and neural elements protected. Osteotome was used to perform Intradiscal, 3 column osteotomies, for deformity correction passing the osteotome into the anterior 1/3 of the body for complete disc removal and correction of deformity. Once completed and complete discectomy performed there was good mobility at this level.Shady passed sequentially and trial for size. Cage was then sized and selected. Autograft and allograft was then placed anterior in the disc space and the cage was then inserted and impacted into place under lateral. AP image, as before, was taken to ensure midline placement. The cage was then expanded into position.The wound was irrigated. Meticulous hemostasis then performed, and attention turned to L3-4. At L3-4 again bilateral laminectomy, complete facetectomy and foraminotomy were performed along with intradiscal 3 column osteotomy for deformity correction. This was her worst level of deformity and differential cage placement was use as well to help with correction. Neural elements were completely scarred to the bone and bony ingrowth to the dural was found at the left side L3-4 region with the traversing L4 root. As this was unroofed, there was a large dural defect that was found under this lamina and facet. This was repaired with 6-0 prolene suture and a dural patch was sewn in due to the extent of the defect. A fat patch was then harvested from subq region and sewen in as well. Once this was completed there was good dural expansion and valsalva to 40 showed no continued leak. We then reassumed the disc preparation, The elements were then protected, and disc space accessed. Intradiscal osteotomy was performed here as well and Sequential shaving performed until desired height and lordosis. Cage selected, and graft placed anterior to the cage within the disc space. Cage was then placed under lateral image, expanded and had good height, lordosis and deformity correction. The wound was irrigated, and meticulous hemostasis performed once again.We then proceeded to L2-3 level. At L2-3 again bilateral laminectomy, complete facetectomy and foraminotomy were performed. Neural elements were mobilized and then protected, and disc space accessed. Intradiscal 3 column osteotomy was done once again for deformity correction as described above and the level was mobilized; Sequential shaving p erformed until desired height and lordosis. Cage selected, and graft placed anterior to the cage within the disc space. Cage was then placed under lateral image, expanded and had good height, lordosis and deformity correction. The wound was irrigated, and meticulous hemostasis performed once again. AP imaging confirmed good placement of all cages and good reduction and coronal balance restored. Screws all in good position. Attention was then drawn to laura placement and further reduction. Rods were selected, measured, cut and bent to appropriate lordosis. They were then secured into pelvic screws b/l. Sequential reduction then done into each screw and set screw placed. Set screws were then final tightened and lateral image showed good lordosis reduction with increase around 15-20 deg from starting. Once rods were secured, cross links were selected and placed and final tightened. The wound was then irrigated with 3L Ancef irrigation, 3L gentamicin irrigation and 6L NSS. Tisseal was then placed over the previous dural defect and patches followed by Surgicel in a sadwhich type layering with another tisseal and then surgicel layer, there was no continuous leak noted. The TPs were then decorticated with high speed prince and Then, in the posterolateral gutter was placed, MagnatOs, Autograft and allograft. This was impacted into position and surgical placed over it. 2g Vanco powder was then placed deep in the wound. No drains placed due to meticulous hemostasis and dural defect. We then proceeded with layered closure. #1 PDS placed in the deep fascia follow ed by a running unidirectional 0 stratafix. 0 Vicryl placed in the deep subq, 2-0 placed in the superficial subq and trinh placed in the skin. The wound edges approximated very well. The wound was then cleaned with ETOH and dressed with optifoam dressing, drain sponges and tegaderms. IONM confirmed no changes. The patient was then transferred off the [facility] spine table to their hospital bed a-traumatically. The patient was then extubated and transferred to the ICU in stable condition having tolerated the procedure with no complications.
[2023-03-23] MEDS: HEPARIN SODIUM,PORCINE/PF 5,000 UNIT/0.5 ML SYRINGE SQ SCH ×2 (08:41→21:57)
[2023-03-23] MEDS: CAFFEINE-SODIUM BENZOATE 500 MG in SODIUM CHLORIDE 0.9% 1,000 ML IVPB SCH (08:49)
[2023-03-23] MEDS: HYDROcodone/APAP 10-325MG 1 EACH TAB PO SCH ×5 (08:59→21:58)
--- NOTE | 2023-03-23 10:56 | P.PN ---
Subjective Progress Note Date: 03/23/23 Subjective: Patient seen and examined at bedside. No acute events overnight. Continues to have some burning pain around the incision site. She has a Garnett catheter in place. No bowel movements. Able to tolerate oral intake. Denies any nausea. Denies any chest pain or shortness of breath. She becomes hypoxic when sleeping. No prior history of sleep apnea. Pertinent positives and negatives as discussed above, a complete review of systems was performed and all other systems are negative. Vitals Signs Reviewed. General: nontoxic, no distress, appears at stated age Derm: warm, dry, back dressing not observed Head: atraumatic, normocephalic, symmetric Eyes: EOMI, no lid lag, anicteric sclera Mouth: no lip lesion, mucus membranes moist Cardiovascular: S1S2 reg, no murmur Lungs: CTA bilateral, no rhonchi, no rales , no accessory muscle use, supplemental oxygen Abdominal: soft, nontender to palpation, no guarding, no appreciable organomegaly Ext: no gross muscle atrophy, no edema, no contractures Neuro: CN II-XI grossly intact, no focal neuro deficits Psych: Alert, oriented, appropriate affect Data Reviewed Today: Pertinent Labs: Hemoglobin 9.3, sodium 136, bicarb 19, creatinine 0.76, magnesium 1.4 Imaging: No new imaging Assessment and Plan: Status post T10 to pelvis decompression fusion Leukocytosis, resolved Acute blood loss anemia, anticipated outcome of surgery, status post 2 units of PRBCs, hemoglobin stable Hypertension Type 2 diabetes Hypomagnesemia Acute hypoxic respiratory failure Dyslipidemia Metabolic acidosis, non-anion gap, improving -Pain control with oral Tylenol, oral [place] as needed, IV Dilaudid as needed -Continue to monitor hemoglobin, improving -Has postoperative hypotension, hold antihypertensives -On sliding scale insulin, hold home metformin -4 g magnesium sulfate IV ordered -Been oxygen, may need outpatient sleep study -Continue gemfibrozil -Acidosis improving, continue lactated Ringer's -Repeat BMP tomorrow Thank you for allowing us to participate in the care of this pleasant patient. Do not hesitate to contact us with questions. Someone can be reached from the [facility] hospitalist group all hours of the day at [phone] or via perfect serve. Objective - Vital Signs Vital signs: Vital Signs Temp 98.5 F 03/23/23 08:00 Pulse 76 03/23/23 10:00 Resp 16 03/23/23 10:00 BP 111/51 03/23/23 10:00 Pulse Ox 93 L 03/23/23 10:00 FiO2 Intake & Output 03/22/23 03/23/23 03/23/23 18:59 06:59 18:59 Intake Total 3212 800 2002 Output Total 1430 1500 500 Balance 1782 -700 1502 Weight 98.4 kg Intake: Intake, IV Titration 4961 178 8633 Amount 0.9% NaCl with KCl 20 Meq 200 /l 1,000 ml @ 50 mls/hr IV .Q20H ZAIN Rx#: [id number] Caffeine-Sodium Benzoate 1002 1002 500 mg In Sodium Chloride 0.9% 1,000 ml @ 1002 mls /hr IVPB DAILY ZAIN Rx#: [id number] Lactated Ringers 1,000 ml 400 550 150 @ 50 mls/hr IV .Q20H ZAIN Rx#:[id number] Magnesium Sulfate-D5w Pmx 100 100 1 gm In Dextrose/Water 1 100ml.bag @ 100 mls/hr IVPB Q1H ZAIN Rx#: [id number] Magnesium Sulfate-D5w Pmx 200 1 gm In Dextrose/Water 1 100ml.bag @ 100 mls/hr IVPB Q1H ZAIN Rx#: [id number] Potassium Chloride 10 meq 100 100 In Water For Injection 1 100ml.bag @ 100 mls/hr IVPB Q1H ZAIN Rx#: [id number] ceFAZolin 2 gm In Sodium 100 50 Chloride 0.9% 50 ml @ 100 mls/hr IVPB Q8H ZAIN Rx#: [id number] Oral 1200 0 450 Blood Product 310 Rc As-1 Unit 310 [id number] Output: Urine 1430 1500 500 Other: Voiding Method Indwelling Catheter Indwelling Catheter Indwelling Catheter ABP, PAP, CO, CI - Last Documented Arterial Blood Pressure 96/40 - Labs CBC & Chem 7: 03/23/23 04:00 03/23/23 04:00 Labs: Abnormal Lab Results - Last 24 Hours (Table) 03/21/23 03/22/23 03/22/23 Range/Units 19:00 11:12 16:15 RBC (3.80-5.40) m/uL Hgb (11.4-16.0) gm/dL Hct (34.0-46.0) % Plt Count (150-450) k/uL Neutrophils # (1.3-7.7) k/uL Sodium (137-145) mmol/L Chloride (98-107) mmol/L Carbon Dioxide (22-30) mmol/L Glucose (74-99) mg/dL POC Glucose (mg/dL) 136 H 125 H (70-110) mg/dL Calcium (8.4-10.2) mg/dL Magnesium (1.6-2.3) mg/dL Crossmatch See Detail 03/22/23 03/23/23 03/23/23 Range/Units 19:50 04:00 04:00 RBC 2.89 L (3.80-5.40) m/uL Hgb 9.3 L D (11.4-16.0) gm/dL Hct 27.6 L (34.0-46.0) % Plt Count 137 L (150-450) k/uL Neutrophils # 8.1 H (1.3-7.7) k/uL Sodium 136 L (137-145) mmol/L Chloride 112 H (98-107) mmol/L Carbon Dioxide 19 L (22-30) mmol/L Glucose 130 H (74-99) mg/dL POC Glucose (mg/dL) 177 H (70-110) mg/dL Calcium 7.2 L (8.4-10.2) mg/dL Magnesium 1.4 L (1.6-2.3) mg/dL Crossmatch 03/23/23 Range/Units 06:30 RBC (3.80-5.40) m/uL Hgb (11.4-16.0) gm/dL Hct (34.0-46.0) % Plt Count (150-450) k/uL Neutrophils # (1.3-7.7) k/uL Sodium (137-145) mmol/L Chloride (98-107) mmol/L Carbon Dioxide (22-30) mmol/L Glucose (74-99) mg/dL POC Glucose (mg/dL) 152 H (70-110) mg/dL Calcium (8.4-10.2) mg/dL Magnesium (1.6-2.3) mg/dL Crossmatch
--- NOTE | 2023-03-23 11:09 | P.PN ---
Subjective Progress Note Date: 03/23/23 Principal diagnosis: Postop day 2: [id number] decompression and fusion I am seeing this patient in new consultation today 03/22/2023 status postoperative day #1 following an elective T10 to pelvis decompression and fusion. Patient is a 72-year-old female with past medical history significant for chronic back pain and lumbar radiculopathy, diabetes mellitus type 2, hyperlipidemia, hypertension. Patient has been complaining of lumbar radiculopathy like symptoms earlier this year, and was evaluated by Dr. Duong. She was found to have multilevel spondylosis and spondylolisthesis. She underwent an elective T10 to pelvis decompression and fusion yesterday with Dr. Duong. She did have some postoperative hypotension. Estimated blood loss was reported as 700 ML's. She was given 1 unit PRBC, and a total of 2.5 L normal saline bolus. Blood pressures are now normotensive. Urine output is adequate in the order of 50-60 ML's per hour. Patient was extubated successfully in recovery, currently on 4 L/m nasal cannula, in no acute distress. Pos toperative chest x-ray shows no acute cardiopulmonary processes. There is a right sided intrajugular central line catheter near the cavoatrial junction. There were also some postsurgical changes. Patient is currently supine in bed. No focal neurological deficits. She is able to move all 4 extremities. Denies any sensation disturbances or saddle anesthesia. Postoperative CBC shows WBC count of 11.7, hemoglobin 8, hematocrit 23, platelets 173. BMP sodium 136, potassium 3.8, chloride 109, serum bicarb 11, BUN 18, creatinine 0.6, glucose 220. Magnesium was low at 1.3. Normal saline with 20 mEq of potassium is infusing at 50 ML's per hour. Nasal swab was positive and colonized with MSSA preoperatively, and the patient is currently on cefazolin. Pain is reportedly well managed on current regimen. Patient will be monitored in the intensive care unit. , patient remains in the ICU, hemodynamically stable, doing extremely well, denies any headache no blurred vision, no nausea no vomiting no abdominal pain, she has improvement in her radicular pain and numbness and tingling into the lower extremities. Her hemoglobin today is 9.3, Garnett catheter remains in place, patient will likely be transferred out of the ICU to a medical surgical floor today. WBC count is 10.5 hemoglobin 9.3 electrodes are normal renal profile is normal. Bicarb is 19 Objective - Vital Signs Vital signs: Vital Signs Temp 98.5 F 03/23/23 08:00 Pulse 76 03/23/23 10:00 Resp 16 03/23/23 10:00 BP 111/51 03/23/23 10:00 Pulse Ox 93 L 03/23/23 10:00 FiO2 Intake & Output 03/22/23 03/23/23 03/23/23 18:59 06:59 18:59 Intake Total 3212 800 2002 Output Total 1430 1500 500 Balance 1782 -700 1502 Weight 98.4 kg Intake: Intake, IV Titration 8070 272 1138 Amount 0.9% NaCl with KCl 20 Meq 200 /l 1,000 ml @ 50 mls/hr IV .Q20H ZAIN Rx#: [id number] Caffeine-Sodium Benzoate 1002 1002 500 mg In Sodium Chloride 0.9% 1,000 ml @ 1002 mls /hr IVPB DAILY ZAIN Rx#: [id number] Lactated Ringers 1,000 ml 400 550 150 @ 50 mls/hr IV .Q20H ZAIN Rx#:[id number] Magnesium Sulfate-D5w Pmx 100 100 1 gm In Dextrose/Water 1 100ml.bag @ 100 mls/hr IVPB Q1H ZAIN Rx#: [id number] Magnesium Sulfate-D5w Pmx 200 1 gm In Dextrose/Water 1 100ml.bag @ 100 mls/hr IVPB Q1H ZAIN Rx#: [id number] Potassium Chloride 10 meq 100 100 In Water For Injection 1 100ml.bag @ 100 mls/hr IVPB Q1H ZAIN Rx#: [id number] ceFAZolin 2 gm In Sodium 100 50 Chloride 0.9% 50 ml @ 100 mls/hr IVPB Q8H ZAIN Rx#: [id number] Oral 1200 0 450 Blood Product 310 Rc As-1 Unit 310 [id number] Output: Urine 1430 1500 500 Other: Voiding Method Indwelling Catheter Indwelling Catheter Indwelling Catheter ABP, PAP, CO, CI - Last Documented Arterial Blood Pressure 96/40 - Exam Physical Exam: Revealed 72-year-old female in no distress. On room air. Head: Atraumatic, normocephalic. HEENT:[Neck is supple.] [No neck masses.] [No thyromegaly.] [No JVD.] Chest: [Clear throughout, no crackles, no rhonchi, no wheezes.] Cardiac Exam: [Normal S1 and S2, no S3 gallop, no murmur.] Abdomen: [Soft, nontender, no megaly, no rebound, no guarding, normal bowel sounds.] Extremities: [No clubbing, no edema, no cyanosis.] Neurological Exam: [No focal neurologic deficit.] Musculoskeletal, patient has some low back stiffness, otherwise unremarkable findings. - Labs CBC & Chem 7: 03/23/23 04:00 03/23/23 04:00 Labs: Abnormal Lab Results - Last 24 Hours (Table) 03/21/23 03/22/23 03/22/23 Range/Units 19:00 11:12 16:15 RBC (3.80-5.40) m/uL Hgb (11.4-16.0) gm/dL Hct (34.0-46.0) % Plt Count (150-450) k/uL Neutrophils # (1.3-7.7) k/uL Sodium (137-145) mmol/L Chloride (98-107) mmol/L Carbon Dioxide (22-30) mmol/L Glucose (74-99) mg/dL POC Glucose (mg/dL) 136 H 125 H (70-110) mg/dL Calcium (8.4-10.2) mg/dL Magnesium (1.6-2.3) mg/dL Crossmatch See Detail 03/22/23 03/23/23 03/23/23 Range/Units 19:50 04:00 04:00 RBC 2.89 L (3.80-5.40) m/uL Hgb 9.3 L D (11.4-16.0) gm/dL Hct 27.6 L (34.0-46.0) % Plt Count 137 L (150-450) k/uL Neutrophils # 8.1 H (1.3-7.7) k/uL Sodium 136 L (137-145) mmol/L Chloride 112 H (98-107) mmol/L Carbon Dioxide 19 L (22-30) mmol/L Glucose 130 H (74-99) mg/dL POC Glucose (mg/dL) 177 H (70-110) mg/dL Calcium 7.2 L (8.4-10.2) mg/dL Magnesium 1.4 L (1.6-2.3) mg/dL Crossmatch 03/23/23 Range/Units 06:30 RBC (3.80-5.40) m/uL Hgb (11.4-16.0) gm/dL Hct (34.0-46.0) % Plt Count (150-450) k/uL Neutrophils # (1.3-7.7) k/uL Sodium (137-145) mmol/L Chloride (98-107) mmol/L Carbon Dioxide (22-30) mmol/L Glucose (74-99) mg/dL POC Glucose (mg/dL) 152 H (70-110) mg/dL Calcium (8.4-10.2) mg/dL Magnesium (1.6-2.3) mg/dL Crossmatch Assessment and Plan Assessment: Impression: Lumbar spondylosis and spondylolisthesis status postoperative day #2 following a T10 to pelvis decompression and fusion. Acute blood loss anemia, hemoglobin was 8 g/dL, and the patient was transfused 1 unit PRBCs due to hypotension. Postoperative hypotension, likely related to hypovolemia. Patient received fluid boluses and 2 units of packed RBCs post surgery. Hypomagnesemia, will be corrected History of lumbar radiculopathy Diabetes mellitus type 2, normally maintained on metformin Benign essential hypertension Hyperlipidemia Recommendation: Continue incentive spirometry Ambulation as felt necessary by orthopedics on the case. Continue GI prophylaxis Continue DVT prophylaxis Consider transferring the patient out of the ICU to a medical surgical floor. Will follow as needed Time with Patient: Less than 30
[2023-03-23 11:10] LABS: Glucose,Whole Blood 174 mg/dL (70-110)
[2023-03-23] MEDS: HYDROmorphone 1 MG/ML 1 ML SYRINGE IVP PRN ×2 (13:19→16:22)
[2023-03-23 16:13] LABS: Glucose,Whole Blood 137 mg/dL (70-110)
[2023-03-23 16:30] LABS: Magnesium 2.7 mg/dL (1.6-2.3); Potassium 3.7 mmol/L (3.5-5.1)
[2023-03-23 20:25] LABS: Glucose,Whole Blood 141 mg/dL (70-110)
[2023-03-23] MEDS: SENNOSIDES-DOCUSATE SODIUM 1 EACH TAB PO SCH (21:57)
[2023-03-24] MEDS: HYDROcodone/APAP 10-325MG 1 EACH TAB PO SCH ×6 (02:38→21:06)
[2023-03-24 06:02] LABS: Glucose,Whole Blood 143 mg/dL (70-110)
[2023-03-24] MEDS: ACETAMINOPHEN TAB 325 MG TAB PO SCH ×4 (06:31→22:58)
[2023-03-24] MEDS: INSULIN ASPART (NovoLOG) 100 UNIT/ML VIAL SQ SCH ×4 (06:32→20:52)
[2023-03-24] MEDS: FERROUS SULFATE 325 MG TAB PO SCH ×2 (06:44→16:56)
--- NOTE | 2023-03-24 07:39 | P.PN ---
Subjective Progress Note Date: 03/24/23 Principal diagnosis: 1. L1-S1 spondylosis with stenosis 2. L1-S1 spondylolisthesis 3. Lower extremity radiculopathy 4. Low back pain 5. Lower extremity weakness Patient seen and examined this morning. Patient is resting comfortably in bed. She continues to deny any headaches, blurred vision, nausea or vomiting. Patient may attempt to sit at bedside today with PT and if she tolerates may be up to chair. If symptoms of headaches, blurred vision, nausea or vomiting occur, return patient to supine position. Patient reports that her pain is managed on current regimen. She recently was repositioned and did not want to roll to her side this morning, will assess surgical incision this afternoon. Archuleta catheter is present and patent. Patient denies any acute concerns at this time. Objective - Vital Signs Vital signs: Vital Signs Temp 98.7 F 03/24/23 02:00 Pulse 82 03/24/23 02:00 Resp 17 03/24/23 02:00 BP 113/69 03/24/23 02:00 Pulse Ox 98 03/24/23 02:00 FiO2 Intake & Output 03/23/23 03/24/23 03/24/23 18:59 06:59 18:59 Intake Total 2902 Output Total 1980 800 Balance 922 -800 Weight 97.5 kg Intake: Intake, IV Titration 2001 Amount Caffeine-Sodium Benzoate 1002 500 mg In Sodium Chloride 0.9% 1,000 ml @ 1002 mls /hr IVPB DAILY ZAIN Rx#: [id number] Lactated Ringers 1,000 ml 350 @ 50 mls/hr IV .Q20H ZAIN Rx#:[id number] Magnesium Sulfate-D5w Pmx 100 1 gm In Dextrose/Water 1 100ml.bag @ 100 mls/hr IVPB Q1H ZAIN Rx#: [id number] Magnesium Sulfate-D5w Pmx 400 1 gm In Dextrose/Water 1 100ml.bag @ 100 mls/hr IVPB Q1H ZAIN Rx#: [id number] Potassium Chloride 10 meq 100 In Water For Injection 1 100ml.bag @ 100 mls/hr IVPB Q1H ZAIN Rx#: [id number] ceFAZolin 2 gm In Sodium 50 Chloride 0.9% 50 ml @ 100 mls/hr IVPB Q8H ZAIN Rx#: [id number] Oral 900 Output: Urine 1979 800 Other: Voiding Method Indwelling Catheter Indwelling Catheter ABP, PAP, CO, CI - Last Documented Arterial Blood Pressure 96/40 - Exam Physical Examination General: The patient is awake and alert, in no acute distress Skin: Skin is warm and dry with no obvious rashes or lesions. Surgical incision to the thoracolumbar region. Dressing is CDI. Eye: Pupils are equal, round and reactive to light, extra-ocular movements are intact; there is normal conjunctiva bilaterally. Neck: The neck is supple, there is no tenderness and ROM intact. Cardiovascular: There is a regular rate and rhythm. No murmur, rub or gallop is appreciated. Respiratory: Lungs are clear to auscultation, respirations are non-labored, breath sounds are equal. Gastrointestinal: Soft, non-distended, non-tender abdomen. Back: There is mild tenderness to palpation in the parathoracic and paralumbar region due to procedure. There is no obvious deformity. . Musculoskeletal: ROM limited secondary to pain and stiffness from surgical procedure. Muscle strength in all major muscle groups of bilateral upper extremities 5/5, bilateral lower extremities 4/5. Neurological: CN 2-12 intact. There are no obvious motor or sensory deficits. Movement and coordination equal and intact. Sensory exam to light touch intact C5-T1 and intact from L2-S1. Reflexes 2/4 in bilateral upper and lower extremities. Negative Hoffmans, babinski, and clonus signs. Psychiatric: Cooperative, appropriate mood & affect, normal judgment. - Labs CBC & Chem 7: 03/23/23 04:00 03/23/23 16:08 Labs: Abnormal Lab Results - Last 24 Hours (Table) 03/23/23 03/23/23 03/23/23 Range/Units 11:08 16:08 16:11 POC Glucose (mg/dL) 174 H 137 H (70-110) mg/dL Magnesium 2.7 H (1.6-2.3) mg/dL 03/23/23 03/24/23 Range/Units 20:24 06:01 POC Glucose (mg/dL) 141 H 143 H (70-110) mg/dL Magnesium (1.6-2.3) mg/dL Assessment and Plan Assessment: Postop day 3: [id number] decompression and fusion 1. Post-op anemia 2. L1-S1 spondylosis with stenosis 3. L1-S1 spondylolisthesis 4. Lower extremity radiculopathy 5. Low back pain 6. Lower extremity weakness Plan: -Appreciate hr consultant and team management. -Activity: Patient may attempt to sit at bedside today with PT, if she tolerates may be up to chair. If symptoms of headaches, blurred vision, nausea or vomiting occur return patient to supine position. -Patient does have LSO brace that was fitted in office for when she is able to be up and about. -Pain control: Adequate at this time -Meds: reviewed -GI ppx: senna, Miralax -DC archuleta when up and about, bedside commode if needed -DVT PPX: Heparin -Hygiene: Maintain dressing clean and dry. Meticulous cleaning after BMs away from the incision site -Encourage IS 10x/hr -Dispo: clinically pending *I reviewed and discussed this case with my attending Dr. Duong, whom has reviewed this chart and films and is in agreement with assessment and plan of care as outlined above. I have personally seen and examined the patient, performed the documentation and the assessment and plan as written. Number of minutes spent on the visit: 20m.
[2023-03-24 08:23] LABS: Basophils # (A) 0.04 X 10*3/uL (0.00-0.10); Basophils % (A) 0.4 %; Eosinophils # (A) 0.23 X 10*3/uL (0.04-0.35); Eosinophils % (A) 2.2 %; HCT 28.1 % (37.2-46.3); HGB 9.3 d/dL (12.0-15.0); Lymphocytes # (A) 1.25 X 10*3/uL (0.90-5.00); Lymphocytes % (A) 12.1 %; MCH 32.4 pg (27.0-32.0); MCHC 33.1 d/dL (32.0-37.0); MCV 97.9 FL (80.0-97.0); Mean Platelet Volume 9.8 FL (9.5-12.2); Monocytes # (A) 0.55 X 10*3/uL (0.20-1.00); Monocytes % (A) 5.3 %; NRBC Per 100 WBC 0 X 10*3/uL (0.00-0.01); Neutrophils # (A) 8.13 X 10*3/uL (1.80-7.70); Neutrophils % (A) 79.1 %; Platelet Count 140 X 10*3/uL (140-440); RBC 2.87 X 10*6/uL (4.10-5.20); RDW 14.7 % (11.5-14.5); WBC 10.29 X 10*3/uL (4.50-10.00)
[2023-03-24] MEDS: HEPARIN SODIUM,PORCINE/PF 5,000 UNIT/0.5 ML SYRINGE SQ SCH ×2 (10:10→21:05)
[2023-03-24] MEDS: FENOFIBRATE 160 MG TAB PO SCH (10:10)
[2023-03-24] MEDS: PANTOPRAZOLE 40 MG/10 ML VIAL IV SCH (10:11)
[2023-03-24] MEDS: GABAPENTIN 100 MG CAP PO SCH ×3 (10:11→21:06)
[2023-03-24] MEDS ORDERED: hydrOXYzine pamoate 25 MG CAP PO PRN (10:36)
[2023-03-24] MEDS: CAFFEINE-SODIUM BENZOATE 500 MG in SODIUM CHLORIDE 0.9% 1,000 ML IVPB SCH (11:01)
[2023-03-24 11:25] LABS: BUN/Creat Ratio 8.43 Ratio (12.00-20.00); Blood Urea Nitrogen 5.9 mg/dL (9.0-27.0); Calcium 7.6 mg/dL (8.7-10.3); Chloride 111 mmol/L (96-109); Glucose 135 mg/dL (70-110); Potassium 3.8 mmol/L (3.5-5.5); Sodium 138 mmol/L (135-145)
[2023-03-24] MEDS: HYDROmorphone 1 MG/ML 1 ML SYRINGE IVP PRN (12:02)
[2023-03-24] MEDS: polyethylene glycoL 3350 17 GM POWD.PACK PO SCH (12:03)
[2023-03-24 12:05] LABS: Glucose,Whole Blood 129 mg/dL (70-110)
--- NOTE | 2023-03-24 12:17 | P.PN ---
Subjective Progress Note Date: 03/24/23 Subjective: Patient seen and examined at bedside. No acute events overnight. Continues to have some burning pain around the incision site. She has a Garnett catheter in place. No bowel movements. Able to tolerate oral intake. Denies any nausea. Denies any chest pain or shortness of breath. Pertinent positives and negatives as discussed above, a complete review of systems was performed and all other systems are negative. Vitals Signs Reviewed. General: nontoxic, no distress, appears at stated age Derm: warm, dry, back dressing not observed Head: atraumatic, normocephalic, symmetric Eyes: EOMI, no lid lag, anicteric sclera Mouth: no lip lesion, mucus membranes moist Cardiovascular: S1S2 reg, no murmur Lungs: CTA bilateral, no rhonchi, no rales , no accessory muscle use Abdominal: soft, nontender to palpation, no guarding, no appreciable organomegaly Ext: no gross muscle atrophy, no edema, no contractures Neuro: CN II-XI grossly intact, no focal neuro deficits Psych: Alert, oriented, appropriate affect Data Reviewed Today: Pertinent Labs: Hemoglobin 9.3, bicarb 16, creatinine 0.7, glucose range between 129-143 Imaging: No new imaging Assessment and Plan: Status post T10 to pelvis decompression fusion Leukocytosis, anticipated outcome of surgery, reactive Acute blood loss anemia, anticipated outcome of surgery, status post 2 units of PRBCs, hemoglobin stable Hypertension Type 2 diabetes Hypomagnesemia, resolved Acute hypoxic respiratory failure, resolved Dyslipidemia Metabolic acidosis, non-anion gap, improving -Pain control with oral Tylenol, oral [place] as needed, IV Dilaudid as needed -Continue to monitor hemoglobin, improving -Has postoperative hypotension, hold antihypertensives -On sliding scale insulin, hold home metformin -Been oxygen, may need outpatient sleep study -Continue gemfibrozil -Acidosis likely in the setting of receiving normal saline with medications, improved from the time of admission -If worsens, may need bicarbonate -Repeat BMP tomorrow Thank you for allowing us to participate in the care of this pleasant patient. Do not hesitate to contact us with questions. Someone can be reached from the [facility] hospitalist group all hours of the day at [phone] or via perfect serve. Objective - Vital Signs Vital signs: Vital Signs Temp 98.9 F 03/24/23 07:03 Pulse 81 03/24/23 07:03 Resp 16 03/24/23 07:03 BP 104/49 03/24/23 07:03 Pulse Ox 96 03/24/23 07:03 FiO2 Intake & Output 03/23/23 03/24/23 03/24/23 18:59 06:59 18:59 Intake Total 2902 Output Total 1980 800 Balance 922 -800 Weight 97.5 kg Intake: Intake, IV Titration 2002 Amount Caffeine-Sodium Benzoate 1002 500 mg In Sodium Chloride 0.9% 1,000 ml @ 1002 mls /hr IVPB DAILY ZAIN Rx#: [id number] Lactated Ringers 1,000 ml 350 @ 50 mls/hr IV .Q20H ZAIN Rx#:[id number] Magnesium Sulfate-D5w Pmx 100 1 gm In Dextrose/Water 1 100ml.bag @ 100 mls/hr IVPB Q1H ZAIN Rx#: [id number] Magnesium Sulfate-D5w Pmx 400 1 gm In Dextrose/Water 1 100ml.bag @ 100 mls/hr IVPB Q1H ZAIN Rx#: [id number] Potassium Chloride 10 meq 100 In Water For Injection 1 100ml.bag @ 100 mls/hr IVPB Q1H ZAIN Rx#: [id number] ceFAZolin 2 gm In Sodium 50 Chloride 0.9% 50 ml @ 100 mls/hr IVPB Q8H ZAIN Rx#: [id number] Oral 900 Output: Urine 1979 Other: Voiding Method Indwelling Catheter Indwelling Catheter Indwelling Catheter ABP, PAP, CO, CI - Last Documented Arterial Blood Pressure 96/40 - Labs CBC & Chem 7: 03/24/23 05:41 03/24/23 05:41 Labs: Abnormal Lab Results - Last 24 Hours (Table) 03/23/23 03/23/23 03/23/23 Range/Units 16:08 16:11 20:24 WBC (4.50-10.00) X 10*3/uL RBC (4.10-5.20) X 10*6/uL Hgb (12.0-15.0) d/dL Hct (37.2-46.3) % MCV (80.0-97.0) FL MCH (27.0-32.0) pg RDW (11.5-14.5) % Neutrophils # (1.80-7.70) X 10*3/uL Chloride (96-109) mmol/L Carbon Dioxide (21.6-31.8) mmol/L BUN (9.0-27.0) mg/dL BUN/Creatinine Ratio (12.00-20.00) Ratio Glucose (70-110) mg/dL POC Glucose (mg/dL) 137 H 141 H (70-110) mg/dL Calcium (8.7-10.3) mg/dL Magnesium 2.7 H (1.6-2.3) mg/dL 03/24/23 03/24/23 03/24/23 Range/Units 05:41 05:41 06:01 WBC 10.29 H (4.50-10.00) X 10*3/uL RBC 2.87 L (4.10-5.20) X 10*6/uL Hgb 9.3 L (12.0-15.0) d/dL Hct 28.1 L (37.2-46.3) % MCV 97.9 H (80.0-97.0) FL MCH 32.4 H (27.0-32.0) pg RDW 14.7 H (11.5-14.5) % Neutrophils # 8.13 H (1.80-7.70) X 10*3/uL Chloride 111 H (96-109) mmol/L Carbon Dioxide 16.0 L (21.6-31.8) mmol/L BUN 5.9 L (9.0-27.0) mg/dL BUN/Creatinine Ratio 8.43 L (12.00-20.00) Ratio Glucose 135 H (70-110) mg/dL POC Glucose (mg/dL) 143 H (70-110) mg/dL Calcium 7.6 L (8.7-10.3) mg/dL Magnesium (1.6-2.3) mg/dL 03/24/23 Range/Units 11:37 WBC (4.50-10.00) X 10*3/uL RBC (4.10-5.20) X 10*6/uL Hgb (12.0-15.0) d/dL Hct (37.2-46.3) % MCV (80.0-97.0) FL MCH (27.0-32.0) pg RDW (11.5-14.5) % Neutrophils # (1.80-7.70) X 10*3/uL Chloride (96-109) mmol/L Carbon Dioxide (21.6-31.8) mmol/L BUN (9.0-27.0) mg/dL BUN/Creatinine Ratio (12.00-20.00) Ratio Glucose (70-110) mg/dL POC Glucose (mg/dL) 129 H (70-110) mg/dL Calcium (8.7-10.3) mg/dL Magnesium (1.6-2.3) mg/dL
[2023-03-24 16:33] LABS: Glucose,Whole Blood 109 mg/dL (70-110)
[2023-03-24 20:59] LABS: Glucose,Whole Blood 119 mg/dL (70-110)
[2023-03-24] MEDS: SENNOSIDES-DOCUSATE SODIUM 1 EACH TAB PO SCH (21:06)
[2023-03-25] MEDS: HYDROcodone/APAP 10-325MG 1 EACH TAB PO SCH ×6 (01:02→21:23)
[2023-03-25] MEDS: ACETAMINOPHEN TAB 325 MG TAB PO SCH ×4 (05:02→23:49)
[2023-03-25] MEDS: INSULIN ASPART (NovoLOG) 100 UNIT/ML VIAL SQ SCH ×4 (06:27→21:24)
[2023-03-25 06:29] LABS: Glucose,Whole Blood 112 mg/dL (70-110)
[2023-03-25] MEDS: FERROUS SULFATE 325 MG TAB PO SCH ×2 (06:36→17:04)
[2023-03-25 08:11] LABS: Basophils % (A) 0 %; Eosinophils # (A) 0.4 k/uL (0-0.7); Eosinophils % (A) 5 %; HCT 27.3 % (34.0-46.0); HGB 9.6 gm/dL (11.4-16.0); Lymphocytes # (A) 1.3 k/uL (1.0-4.8); Lymphocytes % (A) 14 %; MCH 34.4 pg (25.0-35.0); MCHC 35.2 g/dL (31.0-37.0); MCV 97.7 fL (80.0-100.0); Mean Platelet Volume 7.7; Monocytes # (A) 0.4 k/uL (0-1.0); Monocytes % (A) 4 %; Neutrophils # (A) 6.7 k/uL (1.3-7.7); Neutrophils % (A) 76 %; Platelet Count 206 k/uL (150-450); RDW 14.6 % (11.5-15.5); WBC 8.8 k/uL (3.8-10.6)
[2023-03-25 08:33] LABS: African American GFR (CKD) >90 (>60 ml/min/1.73 sqM); Blood Urea Nitrogen 6 mg/dL (7-17); Calcium 7.6 mg/dL (8.4-10.2); Carbon Dioxide 20 mmol/L (22-30); Glucose 110 mg/dL (74-99); Non-African American GFR(CKD) 86 (>60 ml/min/1.73 sqM); Potassium 3.6 mmol/L (3.5-5.1); Sodium 135 mmol/L (137-145)
[2023-03-25] MEDS: HEPARIN SODIUM,PORCINE/PF 5,000 UNIT/0.5 ML SYRINGE SQ SCH ×2 (08:42→21:23)
[2023-03-25] MEDS: GABAPENTIN 100 MG CAP PO SCH ×3 (08:42→21:23)
[2023-03-25] MEDS: FENOFIBRATE 160 MG TAB PO SCH (08:42)
[2023-03-25] MEDS: polyethylene glycoL 3350 17 GM POWD.PACK PO SCH (08:42)
[2023-03-25] MEDS: PANTOPRAZOLE 40 MG/10 ML VIAL IV SCH (08:43)
[2023-03-25 08:45] LABS: Anion Gap 6 mmol/L; Chloride 109 mmol/L (98-107)
[2023-03-25] MEDS: CAFFEINE-SODIUM BENZOATE 500 MG in SODIUM CHLORIDE 0.9% 1,000 ML IVPB SCH (09:49)
--- NOTE | 2023-03-25 11:14 | P.PN ---
Subjective Progress Note Date: 03/25/23 Principal diagnosis: 1. L1-S1 spondylosis with stenosis 2. L1-S1 spondylolisthesis 3. Lower extremity radiculopathy 4. Low back pain 5. Lower extremity weakness Patient seen and examined this morning. Upon entering room, patient is working with PT and stood at bedside. She ambulated around the left side and around the end of the bed into the restroom. Patient tolerated activity well. She has a slow steady gait utilizing a rolling walker. Patient states she sat up in chair yesterday for approx 2.5 hours. Patient states she does plan on going home with homecare. Patient states her and daughter will be able to assist at home. She continues to deny any headaches, blurred vision, nausea or vomiting. She reports increased pain with activity, and that her pain is managed at this time on current regimen. Archuleta catheter may be discontinued today. Patient states she is passing gas, no BM at this time, although she is in restroom currently. Patient denies any acute concerns at this time. Objective - Vital Signs Vital signs: Vital Signs Temp 98.3 F 03/25/23 07:21 Pulse 74 03/25/23 08:42 Resp 14 03/25/23 08:42 BP 125/63 03/25/23 07:21 Pulse Ox 97 03/25/23 07:21 FiO2 Intake & Output 03/24/23 03/25/23 03/25/23 18:59 06:59 18:59 Intake Total 420 Output Total 1050 1600 Balance -1050 -1600 420 Weight 97.5 kg Intake: Oral 420 Output: Urine 1050 1600 Other: Voiding Method Indwelling Catheter Indwelling Catheter Indwelling Catheter ABP, PAP, CO, CI - Last Documented Arterial Blood Pressure 96/40 - Exam Physical Examination General: The patient is awake and alert, in no acute distress Skin: Skin is warm and dry with no obvious rashes or lesions. Surgical incision to the thoracolumbar region. Dressing is CDI. Eye: Pupils are equal, round and reactive to light, extra-ocular movements are intact; there is normal conjunctiva bilaterally. Neck: The neck is supple, there is no tenderness and ROM intact. Cardiovascular: There is a regular rate and rhythm. No murmur, rub or gallop is appreciated. Respiratory: Lungs are clear to auscultation, respirations are non-labored, breath sounds are equal. Gastrointestinal: Soft, non-distended, non-tender abdomen. Back: There is mild tenderness to palpation in the parathoracic and paralumbar region due to procedure. There is no obvious deformity. . Musculoskeletal: ROM limited secondary to pain and stiffness from surgical procedure. Muscle strength in all major muscle groups of bilateral upper extremities 5/5, bilateral lower extremities 4/5. Neurological: CN 2-12 intact. There are no obvious motor or sensory deficits. Movement and coordination equal and intact. Sensory exam to light touch intact C5-T1 and intact from L2-S1. Reflexes 2/4 in bilateral upper and lower extremities. Negative Hoffmans, babinski, and clonus signs. Psychiatric: Cooperative, appropriate mood & affect, normal judgment. - Labs CBC & Chem 7: 03/25/23 07:48 03/25/23 07:48 Labs: Abnormal Lab Results - Last 24 Hours (Table) 03/24/23 03/24/23 03/24/23 Range/Units 05:41 11:37 20:57 RBC (3.80-5.40) m/uL Hgb (11.4-16.0) gm/dL Hct (34.0-46.0) % Sodium (137-145) mmol/L Chloride 111 H (96-109) mmol/L Carbon Dioxide 16.0 L (21.6-31.8) mmol/L BUN 5.9 L (9.0-27.0) mg/dL BUN/Creatinine Ratio 8.43 L (12.00-20.00) Ratio Glucose 135 H (70-110) mg/dL POC Glucose (mg/dL) 129 H 119 H (70-110) mg/dL Calcium 7.6 L (8.7-10.3) mg/dL 03/25/23 03/25/23 03/25/23 Range/Units 06:26 07:48 07:48 RBC 2.80 L (3.80-5.40) m/uL Hgb 9.6 L (11.4-16.0) gm/dL Hct 27.3 L (34.0-46.0) % Sodium 135 L (137-145) mmol/L Chloride 109 H (96-109) mmol/L Carbon Dioxide 20 L (21.6-31.8) mmol/L BUN 6 L (9.0-27.0) mg/dL BUN/Creatinine Ratio (12.00-20.00) Ratio Glucose 110 H (70-110) mg/dL POC Glucose (mg/dL) 112 H (70-110) mg/dL Calcium 7.6 L (8.7-10.3) mg/dL Assessment and Plan Assessment: Postop day 4: [id number] decompression and fusion 1. Post-op anemia 2. L1-S1 spondylosis with stenosis 3. L1-S1 spondylolisthesis 4. Lower extremity radiculopathy 5. Low back pain 6. Lower extremity weakness Plan: -Appreciate senior energy consultant and team management. -Activity: Patient may attempt to sit at bedside today with PT, if she tolerates may be up to chair. If symptoms of headaches, blurred vision, nausea or vomiting occur return patient to supine position. -Daily PT/OT to increase strength and mobility. Ambulate QID, patient to be up in chair for all meals. -LSO brace on when up and about. Do not use in bed or shower. -Pain control: Adequate at this time -Meds: reviewed -GI ppx: senna, Miralax -DC archuleta today 03/26/23 -DVT PPX: Heparin -Hygiene: Maintain dressing clean and dry. Meticulous cleaning after BMs away from the incision site -Encourage IS 10x/hr -Dispo: *I reviewed and discussed this case with my attending Dr. Duong, whom has reviewed this chart and films and is in agreement with assessment and plan of care as outlined above. I have personally seen and examined the patient, performed the documentation and the assessment and plan as written. Number of minutes spent on the visit: 20m.
[2023-03-25 11:29] LABS: Glucose,Whole Blood 136 mg/dL (70-110)
[2023-03-25] MEDS: CYCLOBENZAPRINE 5 MG TAB PO SCH ×3 (11:52→21:23)
--- NOTE | 2023-03-25 13:10 | P.PN ---
Subjective Progress Note Date: 03/25/23 Patient is a 72-year-old female with dyslipidemia, hypertension, [id number] diabetes mellitus type 2 who presented for elective T10 to pelvis decompression and fusion. Patient seen and examined at bedside. She reports that she just had her first bowel movement. Pain is overall manageable at this time but does hurt significantly when up and ambulating. She denies any chest pain or significant shortness of breath Vital signs reviewed General: nontoxic, no distress, appears at stated age Cardiovascular: S1S2 reg, no murmur, positive posterior tibial pulse bilateral, Lungs: Decreased breath sounds bilateral, no rhonchi, no rales , no accessory muscle use Abdominal: soft, nontender to palpation, no guarding, no appreciable organomegaly Ext: no gross muscle atrophy, no edema b/l lower extremities, no contractures Psych: Alert, oriented, appropriate affect Assessment: 72-year-old female status post T10 to pelvis decompression with fusion Acute blood loss anemia -Anticipated outcome of surgery -Follow CBC -No indication for transfusion at this time -Once patient constipation resolves recommend oral iron therapy for the next 30 days. Non-anion gap, hyperchloremic metabolic acidosis -Suspect due to fluid shifts, lisinopril, and metformin in combination -Getting better daily -Encourage patient oral fluid intake, add insure -Repeat BMP in a.m. Diabetes mellitus type 2 -Hold metformin -Sliding-scale insulin -Follow blood sugars Dyslipidemia -Gemfibrozil Hypertension -Lisinopril/hydrochlorothiazide on hold -Blood pressures are improving slowly postoperatively, however they remain on average in the 120s despite meds being on hold. [place] to follow BP Resolved: Leukocytosis Hypomagnesemia Acute hypoxic respiratory failure Imaging: None new Data Review: Vitals reviewed temperature 98.3, pulse 74, respirations 14, blood pressure 125/63, O2 sat 97% on room air, T-max the last 24 hours 99.5 Labs reviewed and remarkable for hemoglobin 9.6 (stable from 9.3), sodium 135, chloride 109, carbon dioxide 20, BUN 6, creatinine 0.71, glucose 136 DVT prophylaxis: Heparin Thank you for allowing us to participate in the care of this pleasant patient. Do not hesitate to contact us with questions. Someone can be reached from the [facility] hospitalist group all hours of the day at [phone] or via [employer]. This dictation was prepared using [employer] voice recognition software. Though every attempt is made to correct errors during dictation some may still exist. Objective - Vital Signs Vital signs: Vital Signs Temp 98.3 F 03/25/23 07:21 Pulse 74 03/25/23 08:42 Resp 14 03/25/23 08:42 BP 125/63 03/25/23 07:21 Pulse Ox 97 03/25/23 07:21 FiO2 Intake & Output 03/24/23 03/25/23 03/25/23 18:59 06:59 18:59 Intake Total 420 Output Total 1050 1600 400 Balance -1050 -1600 20 Weight 97.5 kg Intake: Oral 420 Output: Urine 1050 1600 400 Other: Voiding Method Indwelling Catheter Indwelling Catheter Indwelling Catheter # Bowel Movements 1 ABP, PAP, CO, CI - Last Documented Arterial Blood Pressure 96/40 - Labs CBC & Chem 7: 03/25/23 07:48 03/25/23 07:48 Labs: Abnormal Lab Results - Last 24 Hours (Table) 03/24/23 03/25/23 03/25/23 Range/Units 20:57 06:26 07:48 RBC 2.80 L (3.80-5.40) m/uL Hgb 9.6 L (11.4-16.0) gm/dL Hct 27.3 L (34.0-46.0) % Sodium (137-145) mmol/L Chloride (98-107) mmol/L Carbon Dioxide (22-30) mmol/L BUN (7-17) mg/dL Glucose (74-99) mg/dL POC Glucose (mg/dL) 119 H 112 H (70-110) mg/dL Calcium (8.4-10.2) mg/dL 03/25/23 03/25/23 Range/Units 07:48 11:28 RBC (3.80-5.40) m/uL Hgb (11.4-16.0) gm/dL Hct (34.0-46.0) % Sodium 135 L (137-145) mmol/L Chloride 109 H (98-107) mmol/L Carbon Dioxide 20 L (22-30) mmol/L BUN 6 L (7-17) mg/dL Glucose 110 H (74-99) mg/dL POC Glucose (mg/dL) 136 H (70-110) mg/dL Calcium 7.6 L (8.4-10.2) mg/dL
[2023-03-25 16:51] LABS: Glucose,Whole Blood 113 mg/dL (70-110)
[2023-03-25 20:23] LABS: Glucose,Whole Blood 156 mg/dL (70-110)
[2023-03-25] MEDS: SENNOSIDES-DOCUSATE SODIUM 1 EACH TAB PO SCH (21:23)
[2023-03-26] MEDS: HYDROcodone/APAP 10-325MG 1 EACH TAB PO SCH ×6 (01:49→22:01)
[2023-03-26] MEDS: ACETAMINOPHEN TAB 325 MG TAB PO SCH ×4 (05:57→23:20)
[2023-03-26 06:20] LABS: Glucose,Whole Blood 127 mg/dL (70-110)
[2023-03-26] MEDS: FERROUS SULFATE 325 MG TAB PO SCH (06:35)
[2023-03-26] MEDS: INSULIN ASPART (NovoLOG) 100 UNIT/ML VIAL SQ SCH ×4 (06:36→22:03)
[2023-03-26] MEDS: GABAPENTIN 100 MG CAP PO SCH ×3 (08:14→22:01)
[2023-03-26] MEDS: FENOFIBRATE 160 MG TAB PO SCH (08:14)
[2023-03-26] MEDS: HEPARIN SODIUM,PORCINE/PF 5,000 UNIT/0.5 ML SYRINGE SQ SCH ×2 (08:14→22:01)
[2023-03-26] MEDS: polyethylene glycoL 3350 17 GM POWD.PACK PO SCH (08:14)
[2023-03-26] MEDS: CYCLOBENZAPRINE 5 MG TAB PO SCH ×3 (08:14→22:03)
[2023-03-26] MEDS: PANTOPRAZOLE 40 MG/10 ML VIAL IV SCH (08:54)
[2023-03-26] MEDS: lisinopriL 20 MG TAB PO SCH (09:31)
[2023-03-26 10:09] LABS: African American GFR (CKD) >90 (>60 ml/min/1.73 sqM); Anion Gap 5 mmol/L; Blood Urea Nitrogen 9 mg/dL (7-17); Calcium 7.7 mg/dL (8.4-10.2); Carbon Dioxide 24 mmol/L (22-30); Chloride 107 mmol/L (98-107); Glucose 172 mg/dL (74-99); Non-African American GFR(CKD) 85 (>60 ml/min/1.73 sqM); Potassium 3.5 mmol/L (3.5-5.1); Sodium 136 mmol/L (137-145)
[2023-03-26 10:31] LABS: Basophils % (A) 0 %; Eosinophils # (A) 0.4 k/uL (0-0.7); Eosinophils % (A) 6 %; HCT 29.9 % (34.0-46.0); HGB 10.1 gm/dL (11.4-16.0); Lymphocytes # (A) 1.4 k/uL (1.0-4.8); Lymphocytes % (A) 18 %; MCH 33.4 pg (25.0-35.0); MCHC 33.7 g/dL (31.0-37.0); Mean Platelet Volume 7.3; Monocytes # (A) 0.3 k/uL (0-1.0); Monocytes % (A) 4 %; Neutrophils # (A) 5.6 k/uL (1.3-7.7); Neutrophils % (A) 72 %; Platelet Count 267 k/uL (150-450); RBC 3.02 m/uL (3.80-5.40); RDW 14.3 % (11.5-15.5); WBC 7.8 k/uL (3.8-10.6)
[2023-03-26 11:47] LABS: Glucose,Whole Blood 126 mg/dL (70-110)
--- NOTE | 2023-03-26 12:29 | P.PN ---
Subjective Progress Note Date: 03/26/23 Principal diagnosis: 1. L1-S1 spondylosis with stenosis 2. L1-S1 spondylolisthesis 3. Lower extremity radiculopathy 4. Low back pain 5. Lower extremity weakness Patient seen and examined this morning. Patient is resting comfortably in bed. S urgical dressing has been removed to assess incision. Edges are well approximated, trinh intact. There is moderate amount of serosangeous drainage noted from incision. Dressing to be changed daily or as needed at this time to keep incision clean and dry. She continues to deny any headaches, blurred vision, nausea or vomiting. She reports increased pain with activity, and that her pain is managed at this time on current regimen. Encouraged patient to up and ambulatory and to be in chair with all meals. Archuleta catheter may be discontinued today. Patient states she is passing gas, no BM at this time, although she is in restroom currently. Patient denies any acute concerns at this time. Objective - Vital Signs Vital signs: Vital Signs Temp 98.6 F 03/26/23 06:52 Pulse 73 03/26/23 08:00 Resp 15 03/26/23 08:00 BP 120/68 03/26/23 06:52 Pulse Ox 96 03/26/23 06:52 FiO2 Intake & Output 03/25/23 03/26/23 03/26/23 18:59 06:59 18:59 Intake Total 900 Output Total 1750 550 Balance -850 -550 Intake: Oral 900 Output: Urine 1750 550 Other: Voiding Method Indwelling Catheter Indwelling Catheter # Bowel Movements 1 ABP, PAP, CO, CI - Last Documented Arterial Blood Pressure 96/40 - Exam Physical Examination General: The patient is awake and alert, in no acute distress Skin: Skin is warm and dry with no obvious rashes or lesions. Surgical incision to the thoracolumbar region. Dressing changed 03/26/23 Eye: Pupils are equal, round and reactive to light, extra-ocular movements are intact; there is normal conjunctiva bilaterally. Neck: The neck is supple, there is no tenderness and ROM intact. Cardiovascular: There is a regular rate and rhythm. No murmur, rub or gallop is appreciated. Respiratory: Lungs are clear to auscultation, respirations are non-labored, breath sounds are equal. Gastrointestinal: Soft, non-distended, non-tender abdomen. Back: There is mild tenderness to palpation in the parathoracic and paralumbar region due to procedure. There is no obvious deformity. . Musculoskeletal: ROM limited secondary to pain and stiffness from surgical pro cedure. Muscle strength in all major muscle groups of bilateral upper extremities 5/5, bilateral lower extremities 4/5. Neurological: CN 2-12 intact. There are no obvious motor or sensory deficits. Movement and coordination equal and intact. Sensory exam to light touch intact C5-T1 and intact from L2-S1. Reflexes 2/4 in bilateral upper and lower extremities. Negative Hoffmans, babinski, and clonus signs. Psychiatric: Cooperative, appropriate mood & affect, normal judgment. - Labs CBC & Chem 7: 03/26/23 09:26 03/26/23 09:26 Labs: Abnormal Lab Results - Last 24 Hours (Table) 03/25/23 03/25/23 03/26/23 Range/Units 16:50 20:22 06:18 RBC (3.80-5.40) m/uL Hgb (11.4-16.0) gm/dL Hct (34.0-46.0) % Sodium (137-145) mmol/L Glucose (74-99) mg/dL POC Glucose (mg/dL) 113 H 156 H 127 H (70-110) mg/dL Calcium (8.4-10.2) mg/dL 03/26/23 03/26/23 03/26/23 Range/Units 09:26 09:26 11:45 RBC 3.02 L (3.80-5.40) m/uL Hgb 10.1 L (11.4-16.0) gm/dL Hct 29.9 L (34.0-46.0) % Sodium 136 L (137-145) mmol/L Glucose 172 H (74-99) mg/dL POC Glucose (mg/dL) 126 H (70-110) mg/dL Calcium 7.7 L (8.4-10.2) mg/dL Assessment and Plan Assessment: Postop day 5: [id number] decompression and fusion 1. Post-op anemia-resolved 2. L1-S1 spondylosis with stenosis 3. L1-S1 spondylolisthesis 4. Lower extremity radiculopathy 5. Low back pain 6. Lower extremity weakness Plan: -Appreciate trousseau consultant and team management. -Activity: Patient may attempt to sit at bedside today with PT, if she tolerates may be up to chair. If symptoms of headaches, blurred vision, nausea or vomiting occur return patient to supine position. -Daily PT/OT to increase strength and mobility. Ambulate QID, patient to be up in chair for all meals. -LSO brace on when up and about. Do not use in bed or shower. -Pain control: Adequate at this time -Meds: reviewed -GI ppx: senna, Miralax -DC archuleta today 03/26/23 -DVT PPX: Heparin -Hygiene: Maintain dressing clean and dry. Meticulous cleaning after BMs away from the incision site -Encourage IS 10x/hr -Dispo: Home with homecare tomorrow 03/27/23 *I reviewed and discussed this case with my attending Dr. Duong, whom has reviewed this chart and films and is in agreement with assessment and plan of care as outlined above. I have personally seen and examined the patient, performed the documentation and the assessment and plan as written. Number of minutes spent on the visit: 20m.
--- NOTE | 2023-03-26 14:00 | P.PN ---
Subjective Progress Note Date: 03/26/23 Patient is a 72-year-old female with dyslipidemia, hypertension, [id number] diabetes mellitus type 2 who presented for elective T10 to pelvis decompression and fusion. Patient seen and examined at bedside. She did pass some more gas today. She reports that she has been taking in the insurer but still has a low appetite however that she finds the food here "healing. She denies any nausea, vomiting, chest pain, shortness of breath. Vital signs reviewed General: nontoxic, no distress, appears at stated age Cardiovascular: S1S2 reg, no murmur, positive posterior tibial pulse bilateral, Lungs: Decreased breath sounds bilateral, no rhonchi, no rales , no accessory muscle use Ext: no gross muscle atrophy, no edema b/l lower extremities, no contractures Psych: Alert, oriented, appropriate affect Assessment: 72-year-old female status post T10 to pelvis decompression with fusion Acute blood loss anemia -Anticipated outcome of surgery -Follow CBC as outpatient -No indication for transfusion at this time -start ferrous sulfate 325 mg daily Diabetes mellitus type 2 -Hold metformin -Sliding-scale insulin -Follow blood sugars Dyslipidemia -Gemfibrozil Hypertension -Resume lisino;ril 30 mg dialy, continue to hold her L isinopril/hydrochlorothiazide - follow BP Resolved: Leukocytosis Hypomagnesemia Acute hypoxic respiratory failure Non-anion gap, hyperchloremic metabolic acidosis, resolved Imaging: None new Data Review: Vitals reviewed temperature 98.6, pulse 73, respirations 15, blood pressure 120/68, O2 sat 96% on room air Labs reviewed remarkable for hemoglobin 10.1 (up from 9.6, sodium 136, chloride 107, carbon dioxide 24, glucose 126. DVT prophylaxis: Heparin Thank you for allowing us to participate in the care of this pleasant patient. Do not hesitate to contact us with questions. Someone can be reached from the [facility] hospitalist group all hours of the day at [phone] or via [employer]. This dictation was prepared using [employer] voice recognition software. Though every attempt is made to correct errors during dictation some may still exist. Objective - Vital Signs Vital signs: Vital Signs Temp 98.6 F 03/26/23 06:52 Pulse 73 03/26/23 08:00 Resp 15 03/26/23 08:00 BP 120/68 03/26/23 06:52 Pulse Ox 96 03/26/23 06:52 FiO2 Intake & Output 03/25/23 03/26/23 03/26/23 18:59 06:59 18:59 Intake Total 900 Output Total 1750 550 Balance -850 -550 Intake: Oral 900 Output: Urine 1750 550 Other: Voiding Method Indwelling Catheter Indwelling Catheter # Bowel Movements 1 ABP, PAP, CO, CI - Last Documented Arterial Blood Pressure 96/40 - Labs CBC & Chem 7: 03/26/23 09:26 03/26/23 09:26 Labs: Abnormal Lab Results - Last 24 Hours (Table) 03/25/23 03/25/23 03/26/23 Range/Units 16:50 20:22 06:18 RBC (3.80-5.40) m/uL Hgb (11.4-16.0) gm/dL Hct (34.0-46.0) % Sodium (137-145) mmol/L Glucose (74-99) mg/dL POC Glucose (mg/dL) 113 H 156 H 127 H (70-110) mg/dL Calcium (8.4-10.2) mg/dL 03/26/23 03/26/23 03/26/23 Range/Units 09:26 09:26 11:45 RBC 3.02 L (3.80-5.40) m/uL Hgb 10.1 L (11.4-16.0) gm/dL Hct 29.9 L (34.0-46.0) % Sodium 136 L (137-145) mmol/L Glucose 172 H (74-99) mg/dL POC Glucose (mg/dL) 126 H (70-110) mg/dL Calcium 7.7 L (8.4-10.2) mg/dL
[2023-03-26] MEDS: CAFFEINE-SODIUM BENZOATE 500 MG in SODIUM CHLORIDE 0.9% 1,000 ML IVPB SCH (14:45)
[2023-03-26 16:47] LABS: Glucose,Whole Blood 166 mg/dL (70-110)
[2023-03-26 20:57] LABS: Glucose,Whole Blood 188 mg/dL (70-110)
[2023-03-26] MEDS: SENNOSIDES-DOCUSATE SODIUM 1 EACH TAB PO SCH (22:01)
[2023-03-27] MEDS: HYDROcodone/APAP 10-325MG 1 EACH TAB PO SCH ×6 (00:47→21:35)
[2023-03-27] MEDS: ACETAMINOPHEN TAB 325 MG TAB PO SCH ×3 (05:29→17:11)
[2023-03-27 06:09] LABS: Glucose,Whole Blood 165 mg/dL (70-110)
[2023-03-27] MEDS: INSULIN ASPART (NovoLOG) 100 UNIT/ML VIAL SQ SCH ×4 (06:58→21:34)
--- NOTE | 2023-03-27 07:20 | P.PN ---
Subjective Progress Note Date: 03/27/23 Principal diagnosis: 1. L1-S1 spondylosis with stenosis 2. L1-S1 spondylolisthesis 3. Lower extremity radiculopathy 4. Low back pain 5. Lower extremity weakness Patient seen and examined this morning. Patient is resting comfortably in bed. T here is moderate amount of serosangeous drainage noted from incision. 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 Dressing to be changed daily or as needed at this time to keep incision clean and dry. She reports mild headache when up, denies blurred vision, nausea or vomiting. She reports increased pain with activity, and that her pain is managed at this time on current regimen. Strong encouragement provided to patient to be up and ambulatory and to be in chair with all meals. Garnett catheter discontinued at 10pm last night, patient unable to void at this time, PVR 230ml. Patient states she is passing gas, she has passed some liquid stool, she states no "real" BM. Patient denies any acute concerns at this time. Objective - Vital Signs Vital signs: Vital Signs Temp 98.3 F 03/27/23 01:28 Pulse 83 03/27/23 01:28 Resp 17 03/26/23 19:42 BP 102/61 03/27/23 01:28 Pulse Ox 97 03/27/23 01:28 FiO2 Intake & Output 03/26/23 03/27/23 03/27/23 18:59 06:59 18:59 Other: Voiding Method Indwelling Catheter ABP, PAP, CO, CI - Last Documented Arterial Blood Pressure 96/40 - Exam Physical Examination General: The patient is awake and alert, in no acute distress Skin: Skin is warm and dry with no obvious rashes or lesions. Surgical incision to the thoracolumbar region. Dressing CDI Eye: Pupils are equal, round and reactive to light, extra-ocular movements are intact; there is normal conjunctiva bilaterally. Neck: The neck is supple, there is no tenderness and ROM intact. Cardiovascular: There is a regular rate and rhythm. No murmur, rub or gallop is appreciated. Respiratory: Lungs are clear to auscultation, respirations are non-labored, breath sounds are equal. Gastrointestinal: Soft, non-distended, non-tender abdomen. Back: There is mild tenderness to palpation in the parathoracic and paralumbar region due to procedure. There is no obvious deformity. . Musculoskeletal: ROM limited secondary to pain and stiffness from surgical procedure. Muscle strength in all major muscle groups of bilateral upper extremities 5/5, bilateral lower extremities 4/5. Neurological: CN 2-12 intact. There are no obvious motor or sensory deficits. Movement and coordination equal and intact. Sensory exam to light touch intact C5-T1 and intact from L2-S1. Reflexes 2/4 in bilateral upper and lower extremities. Negative Hoffmans, babinski, and clonus signs. Psychiatric: Cooperative, appropriate mood & affect, normal judgment. - Labs CBC & Chem 7: 03/26/23 09:26 03/26/23 09:26 Labs: Abnormal Lab Results - Last 24 Hours (Table) 03/26/23 03/26/23 03/26/23 Range/Units 09:26 09:26 11:45 RBC 3.02 L (3.80-5.40) m/uL Hgb 10.1 L (11.4-16.0) gm/dL Hct 29.9 L (34.0-46.0) % Sodium 136 L (137-145) mmol/L Glucose 172 H (74-99) mg/dL POC Glucose (mg/dL) 126 H (70-110) mg/dL Calcium 7.7 L (8.4-10.2) mg/dL 03/26/23 03/26/23 03/27/23 Range/Units 16:46 20:51 06:07 RBC (3.80-5.40) m/uL Hgb (11.4-16.0) gm/dL Hct (34.0-46.0) % Sodium (137-145) mmol/L Glucose (74-99) mg/dL POC Glucose (mg/dL) 166 H 188 H 165 H (70-110) mg/dL Calcium (8.4-10.2) mg/dL Assessment and Plan Assessment: Postop day 6: [id number] decompression and fusion 1. Post-op anemia-resolved 2. L1-S1 spondylosis with stenosis 3. L1-S1 spondylolisthesis 4. Lower extremity radiculopathy 5. Low back pain 6. Lower extremity weakness Plan: -Appreciate career consultant and team management. -Activity: Ambulate QID, patient to be up in chair for all meals. -Daily PT/OT to increase strength and mobility. -LSO brace on when up and about. Do not use in bed or shower. -Pain control: Adequate at this time -Meds: reviewed -GI ppx: senna, Miralax -DVT PPX: Heparin -Hygiene: Shower today. Maintain dressing clean and dry. Meticulous cleaning after BMs away from the incision site -Encourage IS 10x/hr -Dispo: Home with homecare later today vs tomorrow. *I reviewed and discussed this case with my attending Dr. Duong, whom has r eviewed this chart and films and is in agreement with assessment and plan of care as outlined above. I have personally seen and examined the patient, performed the documentation and the assessment and plan as written. Number of minutes spent on the visit: 20m.
[2023-03-27] MEDS ORDERED: BUTALB/APAP/CAFF 50-325-40MG TAB PO STA (08:15)
--- NOTE | 2023-03-27 09:23 | P.PN ---
Subjective Progress Note Date: 03/27/23 Patient is a 72-year-old female with dyslipidemia, hypertension, [id number]-[id number] diabetes mellitus type 2 who presented for elective T10 to pelvis decompression and fusion. Patient seen and examined at bedside. She states that her PEREZ is resolved but she does get one when she is moving.Over all she feels like she is doing better. She is passing gas but has still not had a significant bowel movement. Vital signs reviewed General: nontoxic, no distress, appears at stated age Cardiovascular: S1S2 reg, no murmur, positive posterior tibial pulse bilateral, Lungs: Decreased breath sounds bilateral, no rhonchi, no rales , no accessory muscle use Ext: no gross muscle atrophy, no edema b/l lower extremities, no contractures Psych: Alert, oriented, appropriate affect Assessment: 72-year-old female status post T10 to pelvis decompression with fusion Increase drainage from surgical incision - [facility] note reviewed. Monitoring drainage, abdominal binder, and fioricet. Acute blood loss anemia -Anticipated outcome of surgery -Follow CBC as outpatient -No indication for transfusion at this time -Ferrous sulfate 325 mg daily- once daily regiment has showen to be as effective as more frequent dosing in improving iron stores, but is associated with less side effects. Diabetes mellitus type 2 -Hold metformin -Sliding-scale insulin -Follow blood sugars Dyslipidemia -Gemfibrozil Hypertension -Lisinopril 30 mg daily, continue to hold her Lisinopril/hydrochlorothiazide - follow BP Resolved: Leukocytosis Hypomagnesemia Acute hypoxic respiratory failure Non-anion gap, hyperchloremic metabolic acidosis, resolved Imaging: None new Data Review: Vitals temperature 90.8, pulse 80, respirations 16, blood pressure 115/51, O2 sat 96% on room air Blood sugars reviewed a.m. fasting 165 DVT prophylaxis: Heparin Thank you for allowing us to participate in the care of this pleasant patient. Do not hesitate to contact us with questions. Someone can be reached from the [facility] hospitalist group all hours of the day at [phone] or via [employer] serve. This dictation was prepared using [employer] voice recognition software. Though every attempt is made to correct errors during dictation some may still exist. Objective - Vital Signs Vital signs: Vital Signs Temp 98.0 F 03/27/23 07:49 Pulse 80 07/24/23 07:49 Resp 16 03/27/23 07:49 BP 115/51 03/27/23 07:49 Pulse Ox 96 03/27/23 07:49 FiO2 Intake & Output 03/26/23 03/27/23 03/27/23 18:59 06:59 18:59 Other: Voiding Method Indwelling Catheter ABP, PAP, CO, CI - Last Documented Arterial Blood Pressure 96/40 - Labs CBC & Chem 7: 03/26/23 09:26 03/26/23 09:26 Labs: Abnormal Lab Results - Last 24 Hours (Table) 03/26/23 03/26/23 03/26/23 Range/Units 09:26 09:26 11:45 RBC 3.02 L (3.80-5.40) m/uL Hgb 10.1 L (11.4-16.0) gm/dL Hct 29.9 L (34.0-46.0) % Sodium 136 L (137-145) mmol/L Glucose 172 H (74-99) mg/dL POC Glucose (mg/dL) 126 H (70-110) mg/dL Calcium 7.7 L (8.4-10.2) mg/dL 03/26/23 03/26/23 03/27/23 Range/Units 16:46 20:51 06:07 RBC (3.80-5.40) m/uL Hgb (11.4-16.0) gm/dL Hct (34.0-46.0) % Sodium (137-145) mmol/L Glucose (74-99) mg/dL POC Glucose (mg/dL) 166 H 188 H 165 H (70-110) mg/dL Calcium (8.4-10.2) mg/dL
[2023-03-27] MEDS: PANTOPRAZOLE 40 MG/10 ML VIAL IV SCH (09:37)
[2023-03-27] MEDS: GABAPENTIN 100 MG CAP PO SCH ×3 (09:58→21:35)
[2023-03-27] MEDS: polyethylene glycoL 3350 17 GM POWD.PACK PO SCH (09:58)
[2023-03-27] MEDS: lisinopriL 20 MG TAB PO SCH (09:59)
[2023-03-27] MEDS: acetaZOLAMIDE 250 MG TAB PO SCH ×2 (09:59→21:35)
[2023-03-27] MEDS: FENOFIBRATE 160 MG TAB PO SCH (09:59)
[2023-03-27] MEDS: CYCLOBENZAPRINE 5 MG TAB PO SCH ×3 (09:59→21:35)
[2023-03-27] MEDS: FERROUS SULFATE 325 MG TAB PO SCH (09:59)
[2023-03-27] MEDS: HEPARIN SODIUM,PORCINE/PF 5,000 UNIT/0.5 ML SYRINGE SQ SCH ×2 (09:59→21:34)
[2023-03-27 11:43] LABS: Glucose,Whole Blood 176 mg/dL (70-110)
[2023-03-27 16:51] LABS: Glucose,Whole Blood 152 mg/dL (70-110)
[2023-03-27] MEDS: ONDANSETRON 4 MG/2 ML VIAL IVP PRN (17:27)
[2023-03-27 20:22] LABS: Glucose,Whole Blood 153 mg/dL (70-110)
[2023-03-27] MEDS: SENNOSIDES-DOCUSATE SODIUM 1 EACH TAB PO SCH (21:35)
[2023-03-28] MEDS: HYDROcodone/APAP 10-325MG 1 EACH TAB PO SCH ×6 (02:31→20:13)
[2023-03-28] MEDS: ACETAMINOPHEN TAB 325 MG TAB PO SCH ×2 (03:33→05:45)
[2023-03-28 05:21] LABS: Glucose,Whole Blood 146 mg/dL (70-110)
[2023-03-28] MEDS: INSULIN ASPART (NovoLOG) 100 UNIT/ML VIAL SQ SCH ×4 (05:45→20:12)
[2023-03-28 05:55] LABS: HCT 32.2 % (34.0-46.0); HGB 10.8 gm/dL (11.4-16.0); Hypochromasia Slight; MCH 34.1 pg (25.0-35.0); MCHC 33.5 g/dL (31.0-37.0); MCV 101.8 fL (80.0-100.0); Macrocytosis Slight; Mean Platelet Volume 7.2; Platelet Count 380 k/uL (150-450); RBC 3.17 m/uL (3.80-5.40); RDW 14.4 % (11.5-15.5)
[2023-03-28 06:09] LABS: African American GFR (CKD) 69 (>60 ml/min/1.73 sqM); Anion Gap 8 mmol/L; Blood Urea Nitrogen 14 mg/dL (7-17); Calcium 8.8 mg/dL (8.4-10.2); Carbon Dioxide 23 mmol/L (22-30); Chloride 105 mmol/L (98-107); Glucose 139 mg/dL (74-99); Non-African American GFR(CKD) 60 (>60 ml/min/1.73 sqM); Potassium 4.2 mmol/L (3.5-5.1); Sodium 136 mmol/L (137-145)
[2023-03-28] MEDS ORDERED: BUTALB/APAP/CAFF 50-325-40MG TAB PO PRN (07:45)
--- NOTE | 2023-03-28 07:45 | P.PN ---
Subjective Progress Note Date: 03/28/23 Principal diagnosis: 1. L1-S1 spondylosis with stenosis 2. L1-S1 spondylolisthesis 3. Lower extremity radiculopathy 4. Low back pain 5. Lower extremity weakness Patient seen and examined this morning. Patient is sitting up in chair. RN prese nt in room and assisted patient to restroom. Patient has a slow, steady gait with walker. There is an increased moderate amount of serosangeous drainage noted from incision. Dressing was changed x3 in the past 24hrs. Surgical incision is well approximated with trinh intact. 1/4 inferior portion of the incision is draining from a pinhole. Clean and dry dressing applied at this time with foam tape. She reports an increase in frequency of mild headaches when up. Day shift RN report that patient did have an episode of nausea and small amount of emesis yesterday around 1600. She reports increased pain with activity, and that her pain is managed at this time on current regimen. Patient is urinating without difficulty. Patient states she is passing gas, denies BM. Informed patient that we will need to proceed with surgical intervention tomorrow for washout and exploration of her dural defect and possible revision closure. Patient verbalizes understanding. Objective - Vital Signs Vital signs: Vital Signs Temp 97.5 F L 03/28/23 01:53 Pulse 84 03/28/23 01:53 Resp 18 03/28/23 01:53 BP 120/77 03/28/23 01:53 Pulse Ox 96 03/28/23 01:53 FiO2 Intake & Output 03/27/23 03/28/23 03/28/23 18:59 06:59 18:59 Intake Total 480 Output Total 700 Balance -220 Intake: Oral 480 Output: Urine 700 Other: Voiding Method Toilet # Voids 1 3 ABP, PAP, CO, CI - Last Documented Arterial Blood Pressure 96/40 - Exam Physical Examination General: The patient is awake and alert, in no acute distress Skin: Skin is warm and dry with no obvious rashes or lesions. Surgical incision to the thoracolumbar region. Dressing change 03/28/23. Eye: Pupils are equal, round and reactive to light, extra-ocular movements are intact; there is normal conjunctiva bilaterally. Neck: The neck is supple, there is no tenderness and ROM intact. Cardiovascular: There is a regular rate and rhythm. No murmur, rub or gallop is appreciated. Respiratory: Lungs are clear to auscultation, respirations are non-labored, breath sounds are equal. Gastrointestinal: Soft, non-distended, non-tender abdomen. Back: There is mild tenderness to palpation in the parathoracic and paralumbar region due to procedure. There is no obvious deformity. . Musculoskeletal: ROM limited secondary to pain and stiffness from surgical procedure. Muscle strength in all major muscle groups of bilateral upper extremities 5/5, bilateral lower extremities 4/5. Neurological: CN 2-12 intact. There are no obvious motor or sensory deficits. Movement and coordination equal and intact. Sensory exam to light touch intact C5-T1 and intact from L2-S1. Reflexes 2/4 in bilateral upper and lower extremities. Negative Hoffmans, babinski, and clonus signs. Psychiatric: Cooperative, appropriate mood & affect, normal judgment. - Labs CBC & Chem 7: 03/28/23 05:26 03/28/23 05:26 Labs: Abnormal Lab Results - Last 24 Hours (Table) 03/27/23 03/27/23 03/27/23 Range/Units 11:42 16:49 20:21 RBC (3.80-5.40) m/uL Hgb (11.4-16.0) gm/dL Hct (34.0-46.0) % MCV (80.0-100.0) fL Sodium (137-145) mmol/L Glucose (74-99) mg/dL POC Glucose (mg/dL) 176 H 152 H 153 H (70-110) mg/dL 03/28/23 03/28/23 03/28/23 Range/Units 05:20 05:26 05:26 RBC 3.17 L (3.80-5.40) m/uL Hgb 10.8 L (11.4-16.0) gm/dL Hct 32.2 L (34.0-46.0) % MCV 101.8 H (80.0-100.0) fL Sodium 136 L (137-145) mmol/L Glucose 139 H (74-99) mg/dL POC Glucose (mg/dL) 146 H (70-110) mg/dL Assessment and Plan Assessment: Postop day 7: [id number] decompression and fusion 1. Post-op anemia-resolved 2. L1-S1 spondylosis with stenosis 3. L1-S1 spondylolisthesis 4. Lower extremity radiculopathy 5. Low back pain 6. Lower extremity weakness Plan: -Appreciate exchange consultant and team management. -NPO at [place] -OR tomorrow approx 1030 for washout and exploration of her dural defect and possible revision closure -Activity: Ambulate QID, patient to be up in chair for all meals. -Daily PT/OT to increase strength and mobility. -LSO brace on when up and about. Do not use in bed or shower. -Pain control: Adequate at this time -Meds: reviewed -GI ppx: senna, Miralax -DVT PPX: Heparin -Hygiene: Shower today. Maintain dressing clean and dry. Meticulous cleaning after BMs away from the incision site -Encourage IS 10x/hr -Dispo: Clinically pending *I reviewed and discussed this case with my attending Dr. Duong, whom has reviewed this chart and films and is in agreement with assessment and plan of care as outlined above. I have personally seen and examined the patient, performed the documentation and the assessment and plan as written. Number of minutes spent on the visit: 20m.
--- NOTE | 2023-03-28 08:23 | P.PN ---
Progress Note - Text Progress Note Date: 03/28/23 Spine Surgery Clinical and Risk Review Giana Schultz is a 73 yo female who underwent a [id number] decompression fusion on Monday03/21/23. It was my pleasure to have seen and examined Giana. She initially did well after surgery but over the past three days has had increased and sustained drainage from a pin hole at the bottom 1/3 of the incision. She also is c/o more of positional PEREZ and some nausea. She has been up to the bathroom and to chair. She has walked with PT for the past two days. She continues to drain however. In our visit today we have had a chance to go over subjective complaints, physical examination findings and treatments including the natural course history without intervention and various interventional options. The patients imaging demonstrates Post op imaging shows improved alignment and good decompression. On physical exam, Giana demonstrates continued drainage from the low back. Some positional PEREZ. Nausea. She has improved strength in her LE b/l since pre op and she has no tensioning signs or radiculopathy currently. I have explained to the patient that as their condition progresses it will cause further neurological deficits and eventual paralysis. Based on the patients imaging, physical exam, and the rapid progression and disabling nature of their symptoms, at this time I recommend surgery in the form or a: Incision and drainage low back with exploration and possible revision dural repair. I discussed the risk and benefits of this procedure at length with Giana Schultz The patient and agreed to considered pursuing the procedure abovementioned. Prior to surgery, she should follow up with her PCP (Cardio, ID, IM etc) for clearance. Questions were invited and answered, and the patient wishes to proc eed as outlined below. Currently, I am recommendin. Incision and drainage low back with exploration and possible revision dural repair. 2. Follow up with PCP for surgical clearance 3. Review of surgical risks and benefits as well as an educational packet on the proposed surgical procedure. Risks: All surgical procedures come with inherent risks, including those related to positioning, anesthesia, intraoperative findings, and postoperative complications. It is important to understand that surgery does not come with any guarantee of a successful outcome as complications and adverse events are always possible. The patient was given a handout in office today discussing the surgical procedure and risks associated with the intervention, both of which were discussed with the patient. These risks include but are not limited to the following: * Experiencing same, different or even worse symptoms in back, neck, arms, or legs compared to before surgery. * Requiring further surgery or other forms of treatment presently or at some time in the future at same or other levels of the intended spine surgery. * On an extreme but fortunately relatively rare basis severe complication such as blindness, stroke, heart attack, temporary and/or permanent nerve injury, paralysis, coma, or may occur, sometimes without known explanation. * Surgical complications may include but are not limited to risk of infection, fluid accumulation in the surgical dissection site, including a seroma or hematoma, that requires additional surgery, wound drainage, bleeding, new numbness or weakness, vision changes/loss, spinal fluid leakage, non-healing and/or infected incision, headaches, difficulty or inability to swallow, hoarseness, hemopneumothorax, pneumothorax, impotence, retrograde ejaculation, vaginal dryness; injury to nerves, spinal cord, blood vessels, lymphatics or other vital organs (i.e., bowel injury, injury to the great vessels); heterotopic bone formation; complications related to the hardware such as screws, rods, cages including misplaced hardware, device failure, instrumentation at the wrong spine level, hardware fracture/breakage, or hardware loosening; vertebral failure of the spinal column above or below the newly placed hardware; retained surgical instrumentations or devices and the need for further surgery. * Medical risks of the planned spine surgery include but are not limited to generalized Infections to the whole body or local areas outside of the surgical site (sepsis), heart attack, bleeding, anaphylaxis, meningitis, seizure, epilepsy, hearing loss, burn lopez, laceration of the head or other areas of the body, bruising, hypersensitivity of the skin, bladder over distension; allergic reaction; shoulder injury related to positioning; fat, blood and air clots to other areas of the body like heart, lungs, brain; failure of internal organs such as lungs, kidneys, liver and excessive bleeding. If blood transfusions are necessary, note that transfusions may cause intolerance reactions such as anaphylaxis or other complex reactions. * Despite best efforts, the results of spine surgery might not heal in terms of bone, soft tissues such as skin, fascia, ligaments, and joints. Additionally, in order to achieve best possible results, spine surgery may be carried out beyond the initially planned levels and involve decompression, fusion including insertion of hardware at levels other than the original intended area of surgical interest change some portions of the procedure in order to ensure the best possible outcomes. * With spine surgery and spinal fusion, there are different off label uses of instrumentation (devices, implants and hardware) as well as biological substances (bone morphogenic proteins, demineralized bone matrix) as well as using extra bone from allograft sources (i.e. cadaver bone) or autograft (iliac crest bone, ribs, or the spine itself). The patient has been given information about these practices and their inherent risks and benefits. The patient has had a chance to review all the listed information, has been given print outs detailing this information, and has had all his/her questions answered to their satisfaction. It was my pleasure to have seen and examined Giana Schultz In our visit today we have had a chance to go over my understanding of our patient's current condition, the natural course history without intervention and various interventional options. Questions were invited and answered, and the patient wishes to proceed as outlined above. I have seen and examined the patient for 25 minutes and we have spent more than 50% of the time in repeat and detailed counseling about the patient's condition, its natural course history with out and as much as can be predicted with surgery and re-review of various surgical treatment options. In conclusion, Giana Schultz and requested we proceed with the above suggested surgery and are willing to accept risks and limitations of the suggested surgery as nature of the disease process and our best attempts at treatment for the condition. Thank you again for allowing us to be part of your patient's care. Please don't hesitate to contact me if you have any further questions. Signed and authenticated by: Lei Trinidad [facility] [address] [place] [address] [address]
[2023-03-28] MEDS: HEPARIN SODIUM,PORCINE/PF 5,000 UNIT/0.5 ML SYRINGE SQ SCH ×2 (10:17→20:14)
[2023-03-28] MEDS: PANTOPRAZOLE 40 MG/10 ML VIAL IV SCH (10:17)
[2023-03-28] MEDS: polyethylene glycoL 3350 17 GM POWD.PACK PO SCH (10:17)
[2023-03-28] MEDS: FERROUS SULFATE 325 MG TAB PO SCH (10:18)
[2023-03-28] MEDS: lisinopriL 20 MG TAB PO SCH (10:18)
[2023-03-28] MEDS: FENOFIBRATE 160 MG TAB PO SCH (10:18)
[2023-03-28] MEDS: CYCLOBENZAPRINE 5 MG TAB PO SCH ×3 (10:18→20:14)
[2023-03-28] MEDS: acetaZOLAMIDE 250 MG TAB PO SCH ×2 (10:18→20:14)
[2023-03-28] MEDS: GABAPENTIN 100 MG CAP PO SCH ×3 (10:18→20:12)
[2023-03-28 11:19] LABS: Glucose,Whole Blood 123 mg/dL (70-110)
--- NOTE | 2023-03-28 12:37 | P.PN ---
Subjective Progress Note Date: 03/28/23 No new complaints today. Patient is going to the OR tomorrow to repair CSF leak. Gen: awake, alert HEENT: normocephalic, atraumatic, good hearing acuity, moist mucous membranes Resp: good air exchange, breathing comfortably with no accessory muscle use CVS: good distal perfusion x 4, GI: soft, NTTP, ND : no SPT, no CVAT, archuleta catheter is present MSK: no pitting edema, no clubbing Neuro: non-focal, moving all extremities Psych: cooperative, euthymic mood Hospital course: Patient is a 72-year-old female with dyslipidemia, hypertension, mkp-yczshcx-kpewexbtt diabetes mellitus type 2 who presented for elective T10 to pelvis decompression and fusion. Assessment: 72-year-old female status post T10 to pelvis decompression with fusion Increase drainage from surgical incision - [facility] note reviewed. Monitoring drainage, abdominal binder, and fioricet. - plan for OR tomorrow for CSF leak Acute blood loss anemia -Anticipated outcome of surgery -Follow CBC as outpatient -No indication for transfusion at this time -Ferrous sulfate 325 mg daily- once daily regiment has showen to be as effective as more frequent dosing in improving iron stores, but is associated with less side effects. Diabetes mellitus type 2 -Hold metformin -Sliding-scale insulin -Follow blood sugars Dyslipidemia -Gemfibrozil Hypertension -Lisinopril 30 mg daily, continue to hold her Lisinopril/hydrochlorothiazide - follow BP Resolved: Leukocytosis Hypomagnesemia Acute hypoxic respiratory failure Non-anion gap, hyperchloremic metabolic acidosis, resolved Imaging: None new Data Review: Vitals temperature 90.8, pulse 80, respirations 16, blood pressure 115/51, O2 sat 96% on room air Blood sugars reviewed a.m. fasting 165 DVT prophylaxis: Heparin Thank you for allowing us to participate in the care of this pleasant patient. Do not hesitate to contact us with questions. Someone can be reached from the [facility] hospitalist group all hours of the day at [phone] or via perfect serve. This dictation was prepared using [employer] voice recognition software. Though every attempt is made to correct errors during dictation some may still exist. Objective - Vital Signs Vital signs: Vital Signs Temp 98.0 F 03/28/23 07:13 Pulse 76 03/28/23 08:00 Resp 17 03/28/23 08:00 BP 143/80 03/28/23 07:13 Pulse Ox 98 03/28/23 07:13 FiO2 Intake & Output 03/27/23 03/28/23 03/28/23 18:59 06:59 18:59 Intake Total 480 Output Total 700 Balance -220 Weight 97.5 kg Intake: Oral 480 Output: Urine 700 Other: Voiding Method Toilet Toilet # Voids 1 3 ABP, PAP, CO, CI - Last Documented Arterial Blood Pressure 96/40 - Labs CBC & Chem 7: 03/28/23 05:26 03/28/23 05:26 Labs: Abnormal Lab Results - Last 24 Hours (Table) 03/27/23 03/27/23 03/28/23 Range/Units 16:49 20:21 05:20 RBC (3.80-5.40) m/uL Hgb (11.4-16.0) gm/dL Hct (34.0-46.0) % MCV (80.0-100.0) fL Sodium (137-145) mmol/L Glucose (74-99) mg/dL POC Glucose (mg/dL) 152 H 153 H 146 H (70-110) mg/dL 03/28/23 03/28/23 03/28/23 Range/Units 05:26 05:26 11:18 RBC 3.17 L (3.80-5.40) m/uL Hgb 10.8 L (11.4-16.0) gm/dL Hct 32.2 L (34.0-46.0) % MCV 101.8 H (80.0-100.0) fL Sodium 136 L (137-145) mmol/L Glucose 139 H (74-99) mg/dL POC Glucose (mg/dL) 123 H (70-110) mg/dL
[2023-03-28 16:23] LABS: Glucose,Whole Blood 160 mg/dL (70-110)
[2023-03-28 20:06] LABS: Glucose,Whole Blood 142 mg/dL (70-110)
[2023-03-28] MEDS: SENNOSIDES-DOCUSATE SODIUM 1 EACH TAB PO SCH (20:14)
[2023-03-29] MEDS: HYDROcodone/APAP 10-325MG 1 EACH TAB PO SCH ×3 (01:51→07:43)
[2023-03-29 05:52] LABS: Glucose,Whole Blood 131 mg/dL (70-110)
[2023-03-29] MEDS: INSULIN ASPART (NovoLOG) 100 UNIT/ML VIAL SQ SCH ×3 (07:13→18:55)
--- NOTE | 2023-03-29 07:35 | P.PN ---
Subjective Progress Note Date: 03/29/23 Principal diagnosis: 1. L1-S1 spondylosis with stenosis 2. L1-S1 spondylolisthesis 3. Lower extremity radiculopathy 4. Low back pain 5. Lower extremity weakness Patient seen and examined this morning. Patient is sitting up in chair. Surgical dressing continues to have a moderate amount of serosangeous drainage noted from incision. Surgical dressing changed this morning by staff. She continues mild headaches when up. Patient has remained NPO since ID for scheduled procedure today. Patient is urinating without difficulty. Patient states she is passing gas, denies BM. She denies any abdominal pain or feeling bloated. Patient states she seems to be getting short of breath with activity. Encourage use of incentive spirometer. Patient has been afebrile, denies nausea/vomiting at this time, or chest pain. Objective - Vital Signs Vital signs: Vital Signs Temp 98.1 F 03/29/23 01:50 Pulse 78 03/29/23 01:50 Resp 18 03/29/23 01:50 BP 150/72 03/29/23 01:50 Pulse Ox 99 03/29/23 01:50 FiO2 Intake & Output 03/28/23 03/29/23 03/29/23 18:59 06:59 18:59 Intake Total 450 Balance 450 Weight 97.5 kg Intake: Oral 450 Other: Voiding Method Toilet Toilet # Voids 3 ABP, PAP, CO, CI - Last Documented Arterial Blood Pressure 96/40 - Exam Physical Examination General: The patient is awake and alert, in no acute distress Skin: Skin is warm and dry with no obvious rashes or lesions. Surgical incision to the thoracolumbar region. Dressing change 03/29/23. Eye: Pupils are equal, round and reactive to light, extra-ocular movements are intact; there is normal conjunctiva bilaterally. Neck: The neck is supple, there is no tenderness and ROM intact. Cardiovascular: There is a regular rate and rhythm. No murmur, rub or gallop is appreciated. Respiratory: Lungs are clear to auscultation, respirations are non-labored, breath sounds are equal. Gastrointestinal: Soft, non-distended, non-tender abdomen. Back: There is mild tenderness to palpation in the parathoracic and paralumbar region due to procedure. There is no obvious deformity. . Musculoskeletal: ROM limited secondary to pain and stiffness from surgical procedure. Muscle strength in all major muscle groups of bilateral upper extremities 5/5, bilateral lower extremities 4/5. Neurological: CN 2-12 intact. There are no obvious motor or sensory deficits. Movement and coordination equal and intact. Sensory exam to light touch intact C5-T1 and intact from L2-S1. Reflexes 2/4 in bilateral upper and lower extremities. Negative Hoffmans, babinski, and clonus signs. Psychiatric: Cooperative, appropriate mood & affect, normal judgment. - Labs CBC & Chem 7: 03/28/23 05:26 03/28/23 05:26 Labs: Abnormal Lab Results - Last 24 Hours (Table) 03/28/23 03/28/23 03/28/23 Range/Units 11:18 16:22 20:04 POC Glucose (mg/dL) 123 H 160 H 142 H (70-110) mg/dL 03/29/23 Range/Units 05:51 POC Glucose (mg/dL) 131 H (70-110) mg/dL Assessment and Plan Assessment: Postop day 8: [id number] decompression and fusion 1. Post-op anemia-resolved 2. L1-S1 spondylosis with stenosis 3. L1-S1 spondylolisthesis 4. Lower extremity radiculopathy 5. Low back pain 6. Lower extremity weakness Plan: -Appreciate cruise consultant and team management. -Keep NPO -OR today 1030am for washout and exploration of her dural defect and possible revision closure -Activity: Ambulate QID, patient to be up in chair for all meals. -Daily PT/OT to increase strength and mobility. -LSO brace on when up and about. Do not use in bed or shower. -Pain control: Adequate at this time -Meds: reviewed -GI ppx: senna, Miralax -DVT PPX: SCDs and TEDS -Hygiene: Shower today. Maintain dressing clean and dry. Meticulous cleaning after BMs away from the incision site -Encourage IS 10x/hr -Dispo: Clinically pending *I reviewed and discussed this case with my attending Dr. Duong, whom has reviewed this chart and films and is in agreement with assessment and plan of care as outlined above. I have personally seen and examined the patient, performed the documentation and the assessment and plan as written. Number of minutes spent on the visit: 20m.
[2023-03-29] MEDS: FERROUS SULFATE 325 MG TAB PO SCH (07:39)
[2023-03-29] MEDS: FENOFIBRATE 160 MG TAB PO SCH (07:39)
[2023-03-29] MEDS: polyethylene glycoL 3350 17 GM POWD.PACK PO SCH (07:39)
[2023-03-29] MEDS: GABAPENTIN 100 MG CAP PO SCH (07:43)
[2023-03-29] MEDS: CYCLOBENZAPRINE 5 MG TAB PO SCH (07:43)
[2023-03-29] MEDS: lisinopriL 20 MG TAB PO SCH (07:43)
[2023-03-29] MEDS: acetaZOLAMIDE 250 MG TAB PO SCH ×2 (07:44→21:38)
[2023-03-29] MEDS: ONDANSETRON 4 MG/2 ML VIAL IVP PRN (08:09)
[2023-03-29] MEDS: PANTOPRAZOLE 40 MG/10 ML VIAL IV SCH (08:09)
--- NOTE | 2023-03-29 09:15 | P.PN ---
Progress Note - Text Progress Note Date: 03/29/23 Patient seen and examined, I reviewed the note, discussed the case with the CLIENT ENGAGEMENT MANAGER first hand and agree with the assessment and plan of Dunia Holland NP. Please see my notes below for any additional recommendations. patient is marked and discussed her surgery in our surgical plan she agrees and she is willing to proceed with the procedure as outlined previously.
[2023-03-29] MEDS ORDERED: HYDROmorphone 0.5 MG/0.5 ML SYRINGE IVP PRN (09:28)
[2023-03-29] MEDS: LACTATED RINGERS 1,000 ML IV SCH (09:48)
[2023-03-29 09:58] LABS: Glucose,Whole Blood 131 mg/dL (70-110)
[2023-03-29] MEDS ORDERED: LIDOCAINE 4% LTA KIT (4 ML) TOPICAL ONE (10:17)
[2023-03-29] MEDS ORDERED: GLYCOPYRROLATE 0.2 MG/ML 2 ML VIAL ONE (10:17)
[2023-03-29] MEDS ORDERED: PHENYLEPHRINE-0.9% NACL SYG 1,000 MCG/10 ML SYRINGE ONE (10:17)
[2023-03-29] MEDS ORDERED: PROPOFOL 10 MG/ML 20 ML VIAL IV ONE (10:17)
[2023-03-29] MEDS ORDERED: ePHEDrine 50 MG/ML 1 ML VIAL ONE (10:17)
[2023-03-29] MEDS ORDERED: ROCURONIUM 10 MG/ML (5 ML VIAL) IV ONE (10:17)
[2023-03-29] MEDS ORDERED: MIDAZOLAM 2 MG/2 ML VIAL ONE (10:17)
[2023-03-29] MEDS ORDERED: LABETALOL 5 MG/ML VIAL MDV ONE (10:17)
[2023-03-29] MEDS ORDERED: SUCCINYLCHOLINE CHLORIDE 200 MG/10 ML VIAL IV ONE (10:17)
[2023-03-29] MEDS ORDERED: NEOSTIGMINE 1 MG/ML 10 ML VIAL ONE (10:17)
[2023-03-29] MEDS ORDERED: fentaNYL (PF) 50 MCG/ML 2 ML AMP ONE (10:17)
[2023-03-29] MEDS ORDERED: LIDOCAINE 2% INJ 20 MG/ML (2 ML VIAL) ONE (10:17)
[2023-03-29] MEDS ORDERED: GENTAMICIN 80 MG in SODIUM CHLORIDE 0.9% IRRIGATIO 3,000 ML IRRIGATION ONE (10:55)
[2023-03-29] MEDS ORDERED: GELATIN SPONGE,ABSORB (LARGE) 1 EACH SPONGE TOPICAL ONE (10:55)
[2023-03-29] MEDS ORDERED: THROMBIN (BOVINE) 5,000 UNIT VIAL TOPICAL ONE (10:55)
[2023-03-29] MEDS ORDERED: ceFAZolin 3,000 MG in SODIUM CHLORIDE 0.9% IRRIGATIO 3,000 ML IRRIGATION ONE (10:55)
[2023-03-29] MEDS ORDERED: VANCOMYCIN 1,000 MG VIAL MISCELLANE ONE (11:37)
[2023-03-29] MEDS ORDERED: LACTATED RINGERS 1,000 ML IV ONE ×2 (12:09→13:57)
[2023-03-29] MEDS ORDERED: metroNIDAZOLE-NS PMX 500 MG in SALINE 1 100ML.BAG IVPB STA (13:36)
[2023-03-29] MEDS ORDERED: HYDROCORTISONE SUCCINATE 100 MG/2 ML VIAL IVP ONE (13:36)
[2023-03-29] MEDS ORDERED: FUROSEMIDE 10 MG/ML 4 ML VIAL IVP ONE (13:39)
--- NOTE | 2023-03-29 14:01 | XR ---
EXAMINATION TYPE: XR chest 1V DATE OF EXAM: 03/29/2023 1:52 PM COMPARISON: Chest radiographs from 03/21/2023 TECHNIQUE: XR chest 1V Frontal view of the chest. CLINICAL INDICATION:Female, 73 years old with history of Aspiration; FINDINGS: Lungs/Pleura: Blunting of the right costophrenic angle. There is airspace opacities throughout the jordan ngs which is new from 03/21/2023. There is no evidence of left pleural effusion, or pneumothorax. Pulmonary vascularity: Unremarkable. Heart/mediastinum: Cardiomediastinal silhouette is unremarkable. Musculoskeletal: No acute osseous pathology. There is lower spine fixation hardware is present. Other findings: Skin trinh project over the abdomen an mediastinum. Lines/Tubes: Endotracheal tube with distal tip 3.4 cm above the mercy. Nasogastric tube with its distal tip and side-port projecting under the diaphragm. IMPRESSION: Bilateral airspace opacities correlate for aspiration versus pneumonia. Right pleural effusion.
[2023-03-29] MEDS ORDERED: VANCOMYCIN IV PER PHARMACY 1 EACH MISC MISCELLANE PRN (14:04)
[2023-03-29 14:08] LABS: Glucose,Whole Blood 152 mg/dL (70-110)
[2023-03-29] MEDS ORDERED: VANCOMYCIN 2,000 MG in SODIUM CHLORIDE 0.9% 500 ML 500 ML IVPB STA (14:09)
[2023-03-29] MEDS ORDERED: NOREPINEPHRINE 4 MG in SODIUM CHLORIDE 0.9% 250 ML IV SCH (14:15)
[2023-03-29] MEDS ORDERED: ALBUMIN HUMAN 5% (12.5gm) 250 ML BOTTLE IVPB ONE (14:16)
[2023-03-29 14:26] LABS: ABG Base Excess -9.2 mmol/L; ABG HCO3 20 mmol/L (21-25); ABG Oxygen Saturation 77.2 % (94-97); ABG PCO2 59 mmHg (35-45); ABG TCO2 22 mmol/L (19-24)
--- NOTE | 2023-03-29 14:27 | P.PN ---
Progress Note - Text Progress Note Date: 03/29/23 Brief Post Op: Pt taken to PACU on vent. She was having trouble holding sats. Pulmonary CC and Medicine made aware and are at bedside evaluating. Stat CXR shows significant difference from comparison two days prior. She continues to sat in 70s. despite PEEP and FIO2 100%. ABG and labs drawn stat. OG tube during intubation showed 1200 mL return. Question of aspiration during intubation. Surgeon: Ad Pre op dx;continued dural leak lumbar spine Post op dx: same Procedure:irrigation and debridement with revision dural repair lumbar spine Anesthesia: GETA EBL: 100 Fluids: 700 UO: 0 Dispo: to PACU Post op Plan: Likely ICU admit pulmonary critical care and medical evaluation pulmonary optimization, questionable aspiration during intubation. lay flat 24 hours head of bed 10 aggressive GI prophylaxis PT/OT daily neurologic checks and monitor for headache positionally
[2023-03-29 14:28] LABS: ABG PH 7.14 (7.35-7.45); ABG PO2 53 mmHg (83-108)
[2023-03-29] MEDS ORDERED: MIDAZOLAM 2 MG/2 ML VIAL IVP ONE ×2 (14:29→14:59)
[2023-03-29] MEDS ORDERED: SODIUM BICARB 8.4% 50 ML VIAL (1 MEQ/ML) IVPB ONE (14:35)
[2023-03-29] MEDS ORDERED: SODIUM CHLORIDE 0.9% 1,000 ML IV ONE (15:00)
--- NOTE | 2023-03-29 15:00 | P.PN ---
Subjective Progress Note Date: 03/29/23 Principal diagnosis: Respiratory failure. I am seeing this patient in new consultation today 03/22/2023 status postoperative day #1 following an elective T10 to pelvis decompression and fusion. Patient is a 72-year-old female with past medical history significant for chronic back pain and lumbar radiculopathy, diabetes mellitus type 2, hyperlipidemia, hypertension. Patient has been complaining of lumbar radiculopathy like symptoms earlier this year, and was evaluated by Dr. Duong. She was found to have multilevel spondylosis and spondylolisthesis. She underwent an elective T10 to pelvis decompression and fusion yesterday with Dr. Duong. She did have some postoperative hypotension. Estimated blood loss was reported as 700 ML's. She was given 1 unit PRBC, and a total of 2.5 L normal saline bolus. Blood pressures are now normotensive. Urine output is ad equate in the order of 50-60 ML's per hour. Patient was extubated successfully in recovery, currently on 4 L/m nasal cannula, in no acute distress. Postoperative chest x-ray shows no acute cardiopulmonary processes. There is a right sided intrajugular central line catheter near the cavoatrial junction. There were also some postsurgical changes. Patient is currently supine in bed. No focal neurological deficits. She is able to move all 4 extremities. Denies any sensation disturbances or saddle anesthesia. Postoperative CBC shows WBC count of 11.7, hemoglobin 8, hematocrit 23, platelets 173. BMP sodium 136, potassium 3.8, chloride 109, serum bicarb 11, BUN 18, creatinine 0.6, glucose 220. Magnesium was low at 1.3. Normal saline with 20 mEq of potassium is infusing at 50 ML's per hour. Nasal swab was positive and colonized with MSSA preoperatively, and the patient is currently on cefazolin. Pain is reportedly well managed on current regimen. Patient will be monitored in the intensive care unit. , patient remains in the ICU, hemodynamically stable, doing extremely well, denies any headache no blurred vision, no nausea no vomiting no abdominal pain, she has improvement in her radicular pain and numbness and tingling into the lower extremities. Her hemoglobin today is 9.3, Garnett catheter remains in place, patient will likely be transferred out of the ICU to a medical surgical floor today. WBC count is 10.5 hemoglobin 9.3 electrodes are normal renal profi le is normal. Bicarb is 19 Progress note dated 03/29/2023. 73-year-old female who went back to the operating room, after having surgery, to repair, a dural leak, in her lumbar spine. Unfortunately, the patient apparently was quite hypoxemic after the procedure, and they've had a large- volume asked her to aspiration. Seen today again one recovery, on the mechanical ventilator. She is on pressure assist control, with an inspiratory pressure of 22 cm water and inspiratory time of 1.1 seconds. Her rate is 20, her FiO2 was 100%, and a PEEP is 12. No gases been done as yet. She's also getting a bolus of lactated Ringer's, Eric-Synephrine pushes, and norepinephrine has been ordered. Anesthesiologist was placing an arterial line. I did speak to the surgeon, Dr. Duong. The patient will be transferred to the intensive care unit. The only labs from today include a glucose of 152, and a blood gas showing a pO2 of 53, pCO2 of 59, and a pH is 7.14. I'm not sure what settings the patient was on at that time. Chest x-ray shows bilateral consolidations, and infiltrative changes, which could be consistent with aspiration, and/or pulmonary edema. Objective - Vital Signs Vital signs: Vital Signs Temp 97.2 F L 03/29/23 13:22 Pulse 110 H 03/29/23 14:37 Resp 18 03/29/23 14:37 BP 112/60 03/29/23 14:37 Pulse Ox 80 L 03/29/23 14:37 FiO2 100 03/29/23 14:00 Intake & Output 03/28/23 03/29/23 03/29/23 18:59 06:59 18:59 Intake Total 450 1050 Output Total 100 Balance 450 950 Weight 97.5 kg Intake: IV 1050 Oral 450 Output: Estimated Blood Loss 100 Other: Voiding Method Toilet Toilet # Voids 3 ABP, PAP, CO, CI - Last Documented Arterial Blood Pressure 96/40 - Exam No acute distress, sedated, intubated, on 100% oxygen. HEENT examination is grossly unremarkable. Neck supple. Full range of motion. No adenopathy thyromegaly or neck vein distention. Cardiovascular examination reveals regular rhythm rate. S1-S2 normal. No S3 or S4. No discernible murmur noted. Heart rate 110 bpm. Lungs reveal scattered bilateral rhonchi. Breath sounds equal. Saturations are only documented to be 80%. Abdomen soft without bowel sounds. Extremities are intact. No cyanosis clubbing or edema. Skin is without rash or lesion. Neurologic examination cannot be assessed at this time. - Labs CBC & Chem 7: 03/28/23 05:26 03/28/23 05:26 Labs: Abnormal Lab Results - Last 24 Hours (Table) 03/28/23 03/28/23 03/29/23 Range/Units 16:22 20:04 05:51 ABG pH (7.35-7.45) ABG pCO2 (35-45) mmHg ABG pO2 (83-108) mmHg ABG HCO3 (21-25) mmol/L ABG O2 Saturation (94-97) % POC Glucose (mg/dL) 160 H 142 H 131 H (70-110) mg/dL 03/29/23 03/29/23 03/29/23 Range/Units 09:57 13:57 14:24 ABG pH 7.14 L* (7.35-7.45) ABG pCO2 59 H (35-45) mmHg ABG pO2 53 L* (83-108) mmHg ABG HCO3 20 L (21-25) mmol/L ABG O2 Saturation 77.2 L (94-97) % POC Glucose (mg/dL) 131 H 152 H (70-110) mg/dL Assessment and Plan Assessment: Acute hypoxemic respiratory failure, requiring intubation and mechanical ventilation, subsequent to repair of a dural tear, secondary to a large-volume g astric aspiration. Lumbar spondylosis and spondylolisthesis, status post postop day #8, T10 to pel jorge decompression and fusion. Postoperative hypotension, secondary to hypovolemia, responsive to fluid administration. History of lumbar radiculopathy. Type 2 diabetes mellitus. Benign essential hypertension. History of hyperlipidemia. Plan: Plan dated 03/29/2023. I did speak to the surgeon about this patient. Patient will be given a bed in the intensive care unit. We switch the patient to volume assist control mode, rate 20, tidal volume 350, 100%, and PEEP of 10. Blood gas will be done 30 minutes after the switch to volume assist control. Additional changes and mechanical ventilation, will be made after the blood gas. The patient is started on norepinephrine, for blood pressure support. She's also given 2 L of lactated Ringer's. Anesthesiology was placing an arterial line, and I think they were planning to place a central line as well. Additional recommendations and suggestions are forthcoming. Labs, will be reviewed. Medications will be reviewed. X-rays have been reviewed. Prognosis is guarded. Time with Patient: Greater than 30
--- NOTE | 2023-03-29 15:10 | P.PN ---
Subjective Progress Note Date: 03/29/23 During my morning rounds, patient had already gone to the OR for CSF leak repair. I was called by the orthopedic surgeon following the procedure due to concern over refractory hypoxia, hypotension during and after the case. I evaluated the patient during recovery, noted that patient's FiO2 was 100%, PEEP was 12 with pressure support of 20, heart rates were elevated in the 100s, low pressures were declining to the 60s over 30s. I requested chest x-ray stat, which demonstrated diffuse pulmonary edema versus multifocal pneumonia possibly from aspiration. I discussed the case with anesthesia physician who is at bedside and recovery advised me that patient had 1200 mL of gastric output went OG tube was placed and had suspected gastroparesis, there was some need for suctioning the oral airway prior to intubation and concern for aspiration. Gen: awake, alert HEENT: normocephalic, atraumatic, good hearing acuity, moist mucous membranes Resp: good air exchange, breathing comfortably with no accessory muscle use CVS: good distal perfusion x 4, GI: soft, NTTP, ND : no SPT, no CVAT, archuleta catheter is present MSK: no pitting edema, no clubbing Neuro: non-focal, moving all extremities Psych: cooperative, euthymic mood Hospital course: Patient is a 72-year-old female with dyslipidemia, hypertension, [id number] diabetes mellitus type 2 who presented for elective T10 to pelvis decompression and fusion. Assessment: 72-year-old female status post T10 to pelvis decompression with fusion Increase drainage from surgical incision s/p CSF repair on 03/29 - Orthospine note reviewed. Monitoring drainage, abdominal binder, and fioricet. - plan for OR tomorrow for CSF leak Shock, hypovolemic versus Septic Diffuse Pulmonary Edema versus Multi-focal pneumonia Ventilator Dependent Acute Hypoxemic and Hypercarbic Respiratory Failure -Pulmonology consulted and case was discussed with them, transition the patient to ICU -Started vancomycin, ceftriaxone to cover for meningitis/sepsis of unknown origin -3 L of lactated Ringer's, I placed the order for 100 g push of phenylephrine and then levo fed drip -CBC, basic metabolic panel, hepatic function panel, LDH, d-dimer, lactic acid, pro-calcitonin blood cultures were ordered Acute blood loss anemia -Anticipated outcome of surgery -Follow CBC -Transfuse 1 unit of packed red blood cells -Ferrous sulfate 325 mg daily- once daily regiment has showen to be as effective as more frequent dosing in improving iron stores, but is associated with less side effects. Diabetes mellitus type 2 -Hold metformin -Sliding-scale insulin -Follow blood sugars Dyslipidemia -Gemfibrozil Hypertension -Lisinopril 30 mg daily, continue to hold her Lisinopril/hydrochlorothiazide - follow BP DVT prophylaxis: Heparin Thank you for allowing us to participate in the care of this pleasant patient. Do not hesitate to contact us with questions. Someone can be reached from the [facility] hospitalist group all hours of the day at [phone] or via [employer]. Objective - Vital Signs Vital signs: Vital Signs Temp 97.2 F L 03/29/23 13:22 Pulse 110 H 03/29/23 14:37 Resp 18 03/29/23 14:37 BP 112/60 03/29/23 14:37 Pulse Ox 80 L 03/29/23 14:37 FiO2 100 03/29/23 14:00 Intake & Output 03/28/23 03/29/23 03/29/23 18:59 06:59 18:59 Intake Total 450 1050 Output Total 100 Balance 450 950 Weight 97.5 kg Intake: IV 1050 Oral 450 Output: Estimated Blood Loss 100 Other: Voiding Method Toilet Toilet # Voids 3 ABP, PAP, CO, CI - Last Documented Arterial Blood Pressure 96/40 - Labs CBC & Chem 7: 03/28/23 05:26 03/28/23 05:26 Labs: Abnormal Lab Results - Last 24 Hours (Table) 03/28/23 03/28/23 03/29/23 Range/Units 16:22 20:04 05:51 ABG pH (7.35-7.45) ABG pCO2 (35-45) mmHg ABG pO2 (83-108) mmHg ABG HCO3 (21-25) mmol/L ABG O2 Saturation (94-97) % POC Glucose (mg/dL) 160 H 142 H 131 H (70-110) mg/dL 03/29/23 03/29/23 03/29/23 Range/Units 09:57 13:57 14:24 ABG pH 7.14 L* (7.35-7.45) ABG pCO2 59 H (35-45) mmHg ABG pO2 53 L* (83-108) mmHg ABG HCO3 20 L (21-25) mmol/L ABG O2 Saturation 77.2 L (94-97) % POC Glucose (mg/dL) 131 H 152 H (70-110) mg/dL
--- NOTE | 2023-03-29 15:18 | P.GSCN ---
History of Present Illness Consult date: 03/29/23 History of present illness: CHIEF COMPLAINT: Back pain HISTORY OF PRESENT ILLNESS: This is a 73-year-old female who was admitted to the hospital for elective T10 to pelvis decompression and fusion. The patient apparently had a CSF leak and was taken back to the OR today for irrigation and debridement with revision of dural repair of lumbar spine. Patient had been d ifficulty maintaining her oxygen saturation. She is currently on the mechanical ventilation and in recovery and will be going to ICU. Patient has been hypotensive and tachycardic. There were concerns of possible aspiration during intubation. Surgical service has been consulted for postop ileus. It apparently has been 4 days since her last bowel movement. 1200 mL gastric output through OG tube. Patient is receiving IV fluids. She is on mechanical ventilation. She's followed by critical care service. PAST MEDICAL HISTORY: Diabetes Mellitus, Hyperlipidemia, Hypertension, Musculoskeletal Disorder, Osteoarthritis (OA) PAST SURGICAL HISTORY: Cholecystectomy MEDICATIONS: See below ALLERGIES: See below SOCIAL HISTORY: No illicit drug use. REVIEW OF SYSTEMS: CONSTITUTIONAL: Denies fever or chills. HEENT: Denies blurred vision, vision changes, or eye pain. Denies hemoptysis CARDIOVASCULAR: Denies chest pain or pressure. RESPIRATORY: No shortness of breath. GASTROINTESTINAL: See HPI for pertinent findings HEMATOLOGIC: Denies bleeding disorders. GENITOURINARY: Denies any blood in urine or increased urinary frequency. SKIN: Denies pruitis. Denies rash. PHYSICAL EXAM: VITAL SIGNS: Reviewed GENERAL: no acute distress. intubated and sedated HEENT: No sclera icterus. Extraocular movements grossly intact. Moist buccal mucosa. Head is atraumatic, normocephalic. No nasal drainage. ABDOMEN: soft. Distended abdomen. Tympanic. Tender with palpation NEUROLOGIC: intubated LABORATORY DATA: WBC 10 hgb 10.8 platelets 380 Sodium 136 potassium 4.2 creatinine 0.95 IMAGING: Chest x-ray bilateral airspace opacities correlate for aspiration versus pneumonia. Right pleural effusion. ASSESSMENT: 1. Possible Postop ileus. Abdominal distention with high gastric output 2. Status post T10 to pelvis decompression with fusion with drainage from surgical site status post irrigation and debridement 3. Possible aspiration pneumonia PLAN: -Computed tomography scan abdomen and pelvis with oral contrast ordered for further evaluation of abdominal distention when patient is medically stable -Continue to monitor OG output -Continue ICU management -Continue supportive care Thank you for this consultation Physician Water Mechanic note has been reviewed by physician. Signing provider agrees with the documented findings, assessment, and plan of care. Past Medical History Past Medical History: Diabetes Mellitus, Hyperlipidemia, Hypertension, Musculoskeletal Disorder, Osteoarthritis (OA) Additional Past Medical History / Comment(s): Degenerative Disc Disease. History of Any Multi-Drug Resistant Organisms: None Reported Past Surgical History: Cholecystectomy Additional Past Surgical History / Comment(s): Dental work, cataract surgery. Past Anesthesia/Blood Transfusion Reactions: No Reported Reaction Past Psychological History: No Psychological Hx Reported Smoking Status: Never smoker Past Alcohol Use History: Occasional Additional Past Alcohol Use History / Comment(s): 2-3 alcoholic drinks 3-4 times per week. Past Drug Use History: None Reported - Past Family History Brother(s) Family Medical History: Cancer Additional Family Medical History / Comment(s): Lung cancer. Father Family Medical History: Cancer Additional Family Medical History / Comment(s): Melanoma. Medications and Allergies Home Medications Medication Instructions Recorded Confirmed Type Calcium Citrate/Vitamin D3 1 each PO DAILY 03/15/23 03/21/23 History [Citracal + D Maximum Caplet] Glucosamine/Chondr Leon A Sod [Osteo 1 each PO BID 03/15/23 03/21/23 History Bi-Flex Caplet] Lisinopril-Hctz 20-12.5 mg 1 tab PO QAM 03/15/23 03/21/23 History [Zestoretic 20-12.5] Multivitamins, Thera [Multivitamin 1 tab PO DAILY 03/15/23 03/21/23 History (formulary)] Nabumetone 750 mg PO BID 03/15/23 03/21/23 History Niacin 500 mg PO DAILY 03/15/23 03/21/23 History gemfibroziL [Lopid] 600 mg PO BID 03/15/23 03/21/23 History lisinopriL [Prinivil] 20 mg PO QAM 03/15/23 03/21/23 History metFORMIN HCL 500 mg PO BID 03/15/23 03/21/23 History Cyclobenzaprine [Flexeril] 5 mg PO TID #90 tablet 03/26/23 Rx Gabapentin [Neurontin] 100 mg PO TID #90 cap 03/26/23 Rx HYDROcodone/APAP 10-325MG [De Berry 1 tab PO Q4-6H PRN #42 tab 03/26/23 Rx 10-325] Sennosides/Docusate Sodium [Senna 1 each PO DAILY PRN #20 capsule 03/26/23 Rx Plus 8.6-50 mg Softgel] cefaDROXiL [Duricef] 500 mg PO Q12HR 10 Days #20 cap 03/26/23 Rx hydrOXYzine pamoate [Vistaril] 25 mg PO QID PRN #20 cap 03/26/23 Rx Allergies Allergy/AdvReac Type Severity Reaction Status Date / Time ciprofloxacin [From Cipro] Allergy Rash/Hives Verified 03/21/23 07:27 poison jarek extract Allergy Rash/Hives Verified 03/21/23 07:27 Sulfa (Sulfonamide Allergy Unknown Verified 03/21/23 07:27 Antibiotics) Surgical - Exam Vital Signs Temp Pulse BP Pulse Ox 98.4 F 65 151/68 97 03/21/23 07:32 03/21/23 07:32 03/21/23 07:32 03/21/23 07:32 Results - Labs 03/28/23 05:26 03/28/23 05:26 Abnormal Lab Results - Last 24 Hours (Table) 03/28/23 03/28/23 03/29/23 Range/Units 16:22 20:04 05:51 ABG pH (7.35-7.45) ABG pCO2 (35-45) mmHg ABG pO2 (83-108) mmHg ABG HCO3 (21-25) mmol/L ABG O2 Saturation (94-97) % POC Glucose (mg/dL) 160 H 142 H 131 H (70-110) mg/dL 03/29/23 03/29/23 03/29/23 Range/Units 09:57 13:57 14:24 ABG pH 7.14 L* (7.35-7.45) ABG pCO2 59 H (35-45) mmHg ABG pO2 53 L* (83-108) mmHg ABG HCO3 20 L (21-25) mmol/L ABG O2 Saturation 77.2 L (94-97) % POC Glucose (mg/dL) 131 H 152 H (70-110) mg/dL
[2023-03-29 15:20] LABS: Glucose,Whole Blood 135 mg/dL (70-110)
--- NOTE | 2023-03-29 15:36 | P.ANPRN ---
Procedure Note - Anesthesia - Invasive Line Left Arterial Line Time Out Performed: Yes Date of Procedure: 03/29/23 Location of Patient: Phase I Preparation: Sterile Prep, Sterile Dressing Arterial Line Location: Radial Ultrasound Used: No Purpose - Visualization and Identification of Vasculature: No Narrative: Central line placement per sterile protocol utilized. Done as an emergency procedure.. Procedure was performed under complete aseptic precautions. The left wrist is slightly extended and placed on a roll of cloth. Radial artery palpated and appeared to have a intact collateral circulation. Front of the wrist was cleaned with ChloraPrep. It was draped. A 20-gauge two and half inch Arrow arterial catheter was inserted and a bright red blood/back was noticed. It was connected to the pressure monitoring line and the flashback was confirmed. The line was sutured into the skin. Tegaderm dressing was applied. Patient tolerated the procedure very well with no apparent complications. Right Central Line Time Out Performed: Yes Location of Patient: Phase I Preparation: Sterile Prep, Sterile Dressing Central Line Location: Internal Jugular Ultrasound Used: Yes Purpose - Visualization and Identification of Vasculature: Yes Image Stored and Saved: Yes Narrative: Central line placement per sterile protocol utilized. Done as an emergency procedure Right Internal jugular vein cannulated under aseptic precautions. 3cc 1% lidocaine infiltrated initially after cleaning with iodine based prep and draping. Ultrasound used to locate the vein and Seldinger technique used. 7-Romansh triple lumen central line in inserted after the finding the needle with chief pilot needle/catheter. The catheter was sutured in place. The insertion site was dressed with biopatch and tegaderm. Patient tolerated the procedure well.
[2023-03-29] MEDS ORDERED: NALOXONE 0.4 MG/ML 1 ML VIAL IV PRN (15:40)
[2023-03-29] MEDS ORDERED: ACETAMINOPHEN TAB 325 MG TAB PO PRN (15:40)
[2023-03-29] MEDS ORDERED: NOREPINEPHRINE 8 MG in SODIUM CHLORIDE 0.9% 250 ML IV SCH (15:45)
[2023-03-29 15:57] LABS: ABG Base Excess -8.5 mmol/L; ABG HCO3 21 mmol/L (21-25); ABG Oxygen Saturation 87.9 % (94-97); ABG PCO2 62 mmHg (35-45); ABG PO2 68 mmHg (83-108); ABG TCO2 23 mmol/L (19-24)
[2023-03-29 15:59] LABS: ABG PH 7.13 (7.35-7.45); Allen Test Performed? no
--- NOTE | 2023-03-29 16:26 | XR ---
EXAMINATION TYPE: XR chest 1V portable DATE OF EXAM: 03/29/2023 Comparison: 03/29/2023, earlier today Clinical History: 73-year-old female CVC/ETT/NGT placement Findings: Lower thoracic posterior spinal fusion hardware is noted. ET tube satisfactory. NG tube sidehole is a julissa the GE junction level. This can be further advanced by 9 cm so that the sidehole enters the stom ach. Heart normal size. Bilateral airspace disease has worsened in the interval. Right CVC tip in the upper right atrium. Midline skin trinh. Impression: 1. NG tube side hole is above the GE junction. This can be further advanced by 9 cm so that the sideh ole enters stomach. 2. Worsening severe diffuse bilateral airspace disease.
[2023-03-29 16:28] LABS: HCT 29.4 % (34.0-46.0); HGB 9.4 gm/dL (11.4-16.0); Hypochromasia Moderate; MCH 32.9 pg (25.0-35.0); MCHC 32.2 g/dL (31.0-37.0); MCV 102.2 fL (80.0-100.0); Macrocytosis Slight; Mean Platelet Volume 7.5; Platelet Count 353 k/uL (150-450); RBC 2.87 m/uL (3.80-5.40); RDW 14.5 % (11.5-15.5); WBC 1.6 k/uL (3.8-10.6)
[2023-03-29 16:34] LABS: ALT 17 U/L (4-34); AST 35 U/L (14-36); African American GFR (CKD) 59 (>60 ml/min/1.73 sqM); Alkaline Phosphatase 114 U/L (38-126); Anion Gap 7 mmol/L; Bilirubin, Delta 0.6 mg/dL (0.0-0.2); Bilirubin,Unconjugated 0.3 mg/dL (0.0-1.1); Blood Urea Nitrogen 15 mg/dL (7-17); Calcium 7.1 mg/dL (8.4-10.2); Carbon Dioxide 22 mmol/L (22-30); Chloride 108 mmol/L (98-107); Glucose 140 mg/dL (74-99); LDH 245 U/L (120-246); Magnesium 1.6 mg/dL (1.6-2.3); Non-African American GFR(CKD) 51 (>60 ml/min/1.73 sqM); Potassium 3.2 mmol/L (3.5-5.1); Sodium 137 mmol/L (137-145); Total Bilirubin 0.9 mg/dL (0.2-1.3); Total Protein 3.9 g/dL (6.3-8.2)
[2023-03-29 16:41] LABS: NT-Pro-B-Type Natriuretic Pept 180 pg/mL
[2023-03-29] MEDS: IPRATROPIUM-ALBUTEROL 3 ML NEB INHALATION SCH ×3 (17:04→23:33)
[2023-03-29] MEDS ORDERED: CISATRACURIUM 2 MG/ML 5 ML VIAL IV ONE (17:09)
[2023-03-29 17:22] LABS: Band Neutrophils % 9 %; Eosinophils # (M) 0.08 k/uL (0-0.7); Large Platelets Present; Lymphocytes # (M) 0.45 k/uL (1.0-4.8); Metamyelocytes # (M) 0.06 k/uL (0); Metamyelocytes % 4 %; Monocytes # (M) 0.06 k/uL (0-1.0); Neutrophils % (M) 50 %; Nucleated Red Blood Cells 3 /100 WBC (0-0); Polychromasia Present; Total Cells Counted 100
[2023-03-29] MEDS: CISATRACURIUM 200 MG in SODIUM CHLORIDE 0.9% 180 ML IV SCH (17:39)
[2023-03-29] MEDS: MAGNESIUM SULFATE-D5W PMX 1 GM in DEXTROSE/WATER 1 100ML.BAG IVPB SCH ×2 (17:41→17:55)
[2023-03-29] MEDS: POTASSIUM BICARBONATE/CIT AC 20 MEQ TABLET.EFF PO SCH ×2 (17:42→17:55)
--- NOTE | 2023-03-29 18:01 | P.PN ---
Progress Note - Text Progress Note Date: 03/29/23 patient seen and examined at bedside. She seems to be doing slightly better. Her O2 saturation is come up to 87% however she is on 100% FiO2 with 11 of PEEP. she is on a small dose of levo fed currently to help with pressure over they have improved as well. She has been started on vancomycin as well as Rocephin for possible aspiration pneumonia. No signs are now are pointing towards some sort of aspiration event however it is difficult to determine at this point. She is initiating her breathing currently. Respiratory rate is around 20/m. Spoke at length with at bedside about possible aspiration event and what to expect. Obviously I would never want this to happen it is a possibility and we are doing everything to reverse the effects of this time. We will continue to monitor her very closely. Head of bed is currently at about 10 which is acceptable. We will reevaluate her in the morning. Medicine and pulmonary critical care are on board
--- NOTE | 2023-03-29 18:15 | P.OP ---
Date of Procedure: 03/29/23 Preoperative Diagnosis: 1. CONTINUED CSF LEAK S/P COMPLEX T10-P DECOMPRESSION FUSION WITH DURLA REPAIR 2. COMPLEX MEDICAL PATIENT Postoperative Diagnosis: 1. CONTINUED CSF LEAK S/P COMPLEX T10-P DECOMPRESSION FUSION WITH DURLA REPAIR 2. COMPLEX MEDICAL PATIENT 3. POSSIBLE ASPIRATION PNEUMONIA Procedure(s) Performed: 1. IRRIGATION AND DEBRIDMENT LUMBAR SPINE SKIN, SOFT TISSUE, MUSCLE, BONE [id number] CM -KNIFE USED FOR SKIN REMOVAL -CURETTE USED FOR NECTROTIC TISSUE REMOVAL -RONGURE USED FOR BONE REMOVAL 2. REVISION DURAL REPAIR WITH PATCH GRAFT Implants: NONE Anesthesia: GETA Surgeon: Lei Duong X Ray Developing Machine Operator #1: Frank Galaviz (RUPERT Meraz Was present and assisted with all aspects of the case from positioning to dressing placement) Estimated Blood Loss (ml): 100 IV fluids (ml): 1,500 Urine output (ml): 0 Pathology: none sent Condition: critical Disposition: ICU Indications for Procedure: Giana Schultz is a 73 yo female who underwent a X12-mipsbf decompression fusion on Monday03/21/23. It was my pleasure to have seen and examined Giana. She initially did well after surgery but over the past three days has had increased and sustained drainage from a pin hole at the bottom 1/3 of the incision. She also is c/o more of positional PEREZ and some nausea. She has been up to the bathroom and to chair. She has walked with PT for the past two days. She continues to drain however. In our visit today we have had a chance to go over subjective complaints, physical examination findings and treatments including the natural course history without intervention and various interventional options. The patients imaging demonstrates Post op imaging shows improved alignment and good decompression. On physical exam, Giana demonstrates continued drainage from the low back. Some positional PEREZ. Nausea. She has improved strength in her LE b/l since pre op and she has no tensioning signs or radiculopathy currently. I have explained to the patient that as their condition progresses it will cause further neurological deficits and eventual paralysis. Based on the patients imaging, physical exam, and the rapid progression and disabling nature of their symptoms, at this time I recommend surgery in the form or a: Incision and drainage low back with exploration and possible revision dural repair. I discu ssed the risk and benefits of this procedure at length with Giana Schultz The patient and agreed to considered pursuing the procedure abovementioned. Prior to surgery, she should follow up with her PCP (Cardio, ID, IM etc) for clearance. Questions were invited and answered, and the patient wishes to proceed as outlined below. Currently, I am recommendin. Incision and drainage low back with exploration and possible revision dural repair. Description of Procedure: The patient was seen and examined in the preoperative area. All preoperative protocols were followed. Informed consent was obtained risks and benefits of the procedure were discussed at length. Risks including bleeding infection damage to the surrounding tissue and risk of reoperation were discussed with the patient. Risk of anesthesia up to and including was a discussed with the patient. These are outlined in the risk review. They were willing to accept these risks and all of the risks of surgery. The patient was given a weight- based dose of antibiotics in the form of 2 G aNCEF. The patient was seen and evaluated by the anesthesia team who deemed them fit for surgery. The site was marked, the patient was willing to proceed with the procedure. The patient was transferred to the operative suite by the Department of anesthesia. They were then drifted off to sleep by the department anesthesia and GETA was performed. during this phase anesthesia states that that the suction out the back of her oral pharynx before placing the ET tube was there is a lot of fluid back there and possible gastric contents. They did place ET tube with ease. After this oral gastric tube was placed and whole 1200mL of gastric contents were removed. the patient was stable at this point we continued with the procedure. Once confirmation of lines and ventilation the patient was transferred to a [prone Jose table very carefully]. All bony prominences including wrists, elbows, axilla, chest, hips, and thighs, and feet were padded very well. Special attention was paid to the genitalia and these were padded accordingly. SCDs were placed on bilateral lower extremities and were connected. Arms were well padded and placed [on arm boards up and out in the 90/90 position]. Once in position, again we confirmed good ventilation capabilities and that lines were running appropriately. The patient's thoracolumbar spine was then exposed. 1010s were placed outlining the incision site. Standard alcohol was used to clean the incision site and allowed to dry. Operative briefing was performed with all teams and everyone in agreement to proceed. The patient was then prepped and draped in a normal sterile fashion. Timeout was then performed and all parties were in agreement with the procedure to be performed. midline skin incision was then opened with ease and previous sutures removed. This was opened down to the fascia which appeared to be relatively intact there was some sutures that had popped in this area causing gaps within the closure. There is a large amount of CSF fluid which was noted immediately. Blunt dissection was taken down then to the previous surgical bed and it was investigated. The previous patch grafts were still in position however there was continued dural leak from a new tear in the left midline portion around the L3-L4 region where the previous area had been fixed. This is a new tear off of the old region. Nerve rootlets in this area were attempting to herniate through the tear. It was promptly identified and a Aurelia placed over the area and the nerve rootlets were coaxed back into the dural sac. Kerrison rongeur was then used to remove further portion of the facet in this region to allow for better visualization and repair once this was accomplished 6-0 Prolene was used to repair the dura in a running locking fashion followed by simple stitches in this area. Once this was accomplished there was no further leak. Continue to investigate around as this was near the axilla of the traversing nerve root which would be the L4 nerve root as it exits around the pedicle.we did re-sew in a fat patch graft to this area. This was done using 6-0 Prolene as well. We then irrigated thoroughly and debrided further the wound using 3 L of Ancef irrigation followed with 3 L of gentamicin irrigation followed by 6 L of normal sterile saline. Debris was removed using Eugenie around her Steve curet. Skin was freshened using a blade. Wound edges were freshened using a curet. Debris was removed. We then created a bleeding wound bed which allowed for a hemostatic clot around the dura. Once this was accomplished with placed Gelfoam around the area to hold down the patch graft. Tisseel was then placed over this to hold this into position. There is no further dural leak Valsalva to 40 mmHg showed no continuous leak. Vancomycin powder was then placed deep within the wound and we proceeded with layered closure. Muscle layer was closed with #1 PDS followed by the deep fascia which was closed with #1 PDS in a [id number]-[id number]-slqch fashion followed by a running unidirectional strata fix PDS. 0 PDS was not pleased in the deep subcu tissue followed by 2-0 PDS in the superficial subcu tissue. Skin was then closed with 2-0 nylon in a horizontal mattress fashion as well as trinh for support. The wound was then cleaned and dressed sterilely with operative foam dressings. The patient was transferred back to their hospital bed atraumatically with no complications. She continued to have difficulty with her saturations post surgically with myself and anesthesia at bedside. Anesthesia made the decision to take her to PACU on the ventilator to see if she could wake up further and to see if her saturations were improved. Chest x-ray was ordered in the postoperative care unit. Medicine and pulmonary critical care evaluated the patient in postoperative care unit.
[2023-03-29 18:35] LABS: Glucose,Whole Blood 197 mg/dL (70-110)
[2023-03-29 18:45] LABS: ABG Base Excess -9.8 mmol/L; ABG HCO3 19 mmol/L (21-25); ABG Oxygen Saturation 88.8 % (94-97); ABG PCO2 55 mmHg (35-45); ABG PO2 65 mmHg (83-108); ABG TCO2 21 mmol/L (19-24)
[2023-03-29 18:47] LABS: ABG PH 7.15 (7.35-7.45); Allen Test Performed? no
[2023-03-29 20:50] LABS: ABG Base Excess -9.4 mmol/L; ABG HCO3 19 mmol/L (21-25); ABG Oxygen Saturation 84.8 % (94-97); ABG PCO2 47 mmHg (35-45); ABG TCO2 20 mmol/L (19-24); Allen Test Performed? Yes
[2023-03-29 20:52] LABS: ABG PO2 55 mmHg (83-108)
[2023-03-29] MEDS: NOREPINEPHRINE 32 MG in SODIUM CHLORIDE 0.9% 218 ML IV SCH (21:03)
[2023-03-29] MEDS: ARTIFICIAL TEARS-HYPROMELLOSE DROPS 15 ML BTL BOTH EYES SCH ×2 (21:10→23:42)
[2023-03-29] MEDS: CHLORHEXIDINE GLUCONATE 15 ML CUP MUCOUS MEM SCH (21:10)
[2023-03-29] MEDS: VASOPRESSIN 60 UNIT in SODIUM CHLORIDE 0.9% 150 ML IV SCH (21:32)
[2023-03-29] MEDS: POTASSIUM BICARBONATE/CIT AC 20 MEQ TABLET.EFF NG-TUBE SCH ×2 (21:37→22:53)
[2023-03-29 23:49] LABS: Glucose,Whole Blood 175 mg/dL (70-110)
[2023-03-30] MEDS: INSULIN ASPART (NovoLOG) 100 UNIT/ML VIAL SQ SCH ×4 (00:09→18:17)
[2023-03-30] MEDS: POTASSIUM CHLORIDE 10 MEQ in WATER FOR INJECTION 1 100ML.BAG IVPB SCH ×2 (03:28→05:14)
[2023-03-30] MEDS: IPRATROPIUM-ALBUTEROL 3 ML NEB INHALATION SCH ×6 (03:35→23:54)
[2023-03-30 04:26] LABS: African American GFR (CKD) 45 (>60 ml/min/1.73 sqM); Anion Gap 12 mmol/L; Blood Urea Nitrogen 19 mg/dL (7-17); Calcium 7.4 mg/dL (8.4-10.2); Carbon Dioxide 15 mmol/L (22-30); Chloride 108 mmol/L (98-107); Glucose 223 mg/dL (74-99); Magnesium 2.2 mg/dL (1.6-2.3); Non-African American GFR(CKD) 39 (>60 ml/min/1.73 sqM); Potassium 3.9 mmol/L (3.5-5.1); Sodium 135 mmol/L (137-145)
[2023-03-30] MEDS: ARTIFICIAL TEARS-HYPROMELLOSE DROPS 15 ML BTL BOTH EYES SCH ×5 (05:14→20:50)
[2023-03-30 05:21] LABS: HCT 31.9 % (34.0-46.0); Hypochromasia Moderate; MCH 32.5 pg (25.0-35.0); MCHC 31.3 g/dL (31.0-37.0); MCV 103.7 fL (80.0-100.0); Macrocytosis Slight; Mean Platelet Volume 9.1; Platelet Count 399 k/uL (150-450); Poikilocytosis Slight; RBC 3.08 m/uL (3.80-5.40); RDW 14.8 % (11.5-15.5)
[2023-03-30 05:45] LABS: ABG Base Excess -9.8 mmol/L; ABG HCO3 18 mmol/L (21-25); ABG Oxygen Saturation 98.2 % (94-97); ABG PCO2 44 mmHg (35-45); ABG PH 7.22 (7.35-7.45); ABG PO2 123 mmHg (83-108); ABG TCO2 19 mmol/L (19-24); Allen Test Performed? Yes
[2023-03-30 06:04] LABS: Glucose,Whole Blood 233 mg/dL (70-110)
[2023-03-30 06:52] LABS: Band Neutrophils % 37 %; Lymphocytes # (M) 0.32 k/uL (1.0-4.8); Metamyelocytes # (M) 0.63 k/uL (0); Metamyelocytes % 4 %; Monocytes # (M) 0.63 k/uL (0-1.0); Myelocytes # (M) 0.32 k/uL (0); Myelocytes % 2 %; Neutrophils % (M) 51 %; Nucleated Red Blood Cells 1 /100 WBC (0-0); Total Cells Counted 100; Toxic Granulation Present; WBC 15.8 k/uL (3.8-10.6)
[2023-03-30 06:53] LABS: Anisocytosis (M) Present; Polychromasia Present; Tear Drop Cells Present
--- NOTE | 2023-03-30 07:33 | CA ---
Transthoracic Echo Report Name: Giana Schultz Age: 73 Gender: F : 1950 Exam Date: 03/29/2023 15:47 Exam Location: [place] [facility] Ht (in): 65 Wt (lb): 215 Ordering Physician: Claudette London MD Attending/Referring Phys: Systems Operator Madeleine Hallman [facility] Procedure CPT: Indications: pulmonary edema Cardiac Hx: Technical Quality: Technically difficult study Contrast 1: Total Dose (mL): Contrast 2: Total Dose (mL): MEASUREMENTS (Male / Female) Normal Values 2D ECHO LV Diastolic Diameter PLAX 4.6 cm 4.2 - 5.9 / 3.9 - 5.3 cm LV Systolic Diameter PLAX 2.9 cm IVS Diastolic Thickness 0.8 cm 0.6 - 1.0 / 0.6 - 0.9 cm LVPW Diastolic Thickness 0.7 cm 0.6 - 1.0 / 0.6 - 0.9 cm LV Relative Wall Thickness 0.3 LVOT Diameter 2.0 cm M-MODE Aortic Root Diameter MM 2.4 cm LA Systolic Diameter MM 3.7 cm LA Ao Ratio MM 1.6 AV Cusp Separation MM 2.0 cm DOPPLER AV Peak Velocity 164.1 cm/s AV Peak Gradient 10.8 mmHg AV Mean Velocity 118.3 cm/s AV Mean Gradient 6.1 mmHg AV Velocity Time Integral 26.2 cm LVOT Peak Velocity 144.4 cm/s LVOT Peak Gradient 8.3 mmHg LVOT Velocity Time Integral 23.3 cm LVOT Stroke Volume 75.1 cm??? LVOT Stroke Volume Index 36.8 ml/m??? LVOT Cardiac Index 3693.0 cm???/min???m??? AV Area Cont Eq vti 2.9 cm??? AV Area Cont Eq pk 2.8 cm??? Mitral E Point Velocity 75.3 cm/s Mitral A Point Velocity 112.0 cm/s Mitral E to A Ratio 0.7 MV Deceleration Time 146.5 ms LV E' Lateral Velocity 7.2 cm/s Mitral E to LV E' Lateral Ratio 10.5 LV E' Septal Velocity 5.8 cm/s Mitral E to LV E' Septal Ratio 13.0 TR Peak Velocity 337.5 cm/s TR Peak Gradient 45.6 mmHg Right Atrial Pressure 8.0 mmHg Pulmonary Artery Systolic Pressu 53.6 mmHg Right Ventricular Systolic Press 53.6 mmHg FINDINGS Left Ventricle Left ventricular cavity size normal. Left ventricular wall thickness normal. Hyperdynamic left ventricular systolic function. Left ventricular ejection fraction is estimated at 60-65%. Right Ventricle Right ventricle not well visualized. Moderate pulmonary hypertension. Right Atrium Right atrium not well visualized. Left Atrium Normal left atrial size. Mitral Valve Structurally normal mitral valve. No mitral regurgitation. Aortic Valve Aortic valve not well visualized. No aortic regurgitation. Tricuspid Valve Structurally normal tricuspid valve. mild tricuspid regurgitation. Pulmonic Valve Pulmonic valve not well visualized. Pericardium No pericardial effusion. Echo free space anterior to the right ventricle likely represents a fat pad. Aorta Normal size aortic root. CONCLUSIONS Technically difficult study. 1. Normal left ventricle size with systolic ejection fraction of 60-65% 2. Limited Doppler study with mild tricuspid regurgitation and moderate pulmonary hypertension Previewed by: Dr. Galileo Petersen MD (Electronically Signed) Final Date: 30 March 2023 07:32
[2023-03-30] MEDS: PANTOPRAZOLE 40 MG/10 ML VIAL IV SCH (08:49)
[2023-03-30] MEDS: CHLORHEXIDINE GLUCONATE 15 ML CUP MUCOUS MEM SCH ×2 (08:49→20:50)
[2023-03-30] MEDS: acetaZOLAMIDE 250 MG TAB PO SCH ×2 (08:49→20:49)
--- NOTE | 2023-03-30 08:54 | P.PN ---
Subjective Progress Note Date: 03/30/23 Principal diagnosis: Lumbar degenerative scoliosis LE weakness LE radiculopathy Pt s/e this AM with PCC at bedside. She is very sick. She continues to require high PEEP and pressures to maintain her SPO2. She continues to require pressors to maintain her BP and MAP of 80s. She is sedated and vented and paralyzed at this time. CXR was done this AM. New Abg done as well which was reviewed with PCC and NSG at bedside. ABG shows improvement in her acidosis and increase in her PO2. CXR reviewed shows slightly decrease infiltrates with good expansion. No other complicating process seen at this time. Dressing is CDI without drainage low back. Attempted contact to who PCC states was at bedside but there was no answer will try again later to discuss. We will continue to monitor her closely. Objective - Vital Signs Vital signs: Vital Signs Temp 98.3 F 03/30/23 04:00 Pulse 97 03/30/23 07:15 Resp 32 H 03/30/23 07:15 BP 128/70 03/29/23 14:52 Pulse Ox 96 03/30/23 07:15 FiO2 100 03/30/23 07:00 Intake & Output 03/29/23 03/30/23 03/30/23 18:59 06:59 18:59 Intake Total 2463.015 993.460 20 Output Total 550 865 25 Balance 1913.015 128.460 -5 Weight 97 kg Intake: IV 1650 470 20 Lactated Ringers 1,000 ml 220 20 @ 20 mls/hr IV .Q24H ZAIN Rx#:[id number] Potassium Chloride 10 meq 200 In Water For Injection 1 100ml.bag @ 100 mls/hr IVPB Q1H ZAIN Rx#: [id number] ceFAZolin 2 gm In Sodium 50 Chloride 0.9% 50 ml @ 100 mls/hr IVPB Q8H ZAIN Rx#: [id number] Intake, IV Titration 813.015 463.460 Amount Cisatracurium 200 mg In 38.994 Sodium Chloride 0.9% 180 ml @ 2 MCG/KG/MIN 11.64 mls/hr IV .[id number] ZAIN Rx #:[id number] Lactated Ringers 1,000 ml 20 @ 20 mls/hr IV .Q24H ZAIN Rx#:[id number] Magnesium Sulfate-D5w Pmx 200 1 gm In Dextrose/Water 1 100ml.bag @ 100 mls/hr IVPB Q1H [facility]AIN Rx#: [id number] Norepinephrine 32 mg In 109.847 Sodium Chloride 0.9% 218 ml @ 0.03 MCG/KG/MIN 1. 364 mls/hr IV .Q24H ZAIN Rx#:[id number] Norepinephrine 8 mg In 43.015 54.084 Sodium Chloride 0.9% 250 ml @ 0.03 MCG/KG/MIN 5.66 mls/hr IV .Q24H ZAIN Rx#: [id number] Vancomycin 1,500 mg In 500 Sodium Chloride 0.9% 500 ml 500 ml @ 167 mls/hr IVPB Q24H ZAIN Rx#: [id number] cefTRIAXone 2 gm In 50 Sodium Chloride 0.9% 50 ml @ 100 mls/hr IVPB Q12HR [facility]AIN Rx#:[id number] propofoL 1,000 mg In 260.535 Empty Bag 1 bag @ 15 MCG/ KG/MIN 8.73 mls/hr IV . [id number] ZAIN Rx#:[id number] Other 60 Output: Gastric Drainage 600 Urine 450 265 25 Estimated Blood Loss 100 Other: Voiding Method Indwelling Catheter Indwelling Catheter ABP, PAP, CO, CI - Last Documented Arterial Blood Pressure 122/49 - Exam Vented, Sedated. Not following commands. PEERL Somewhat edematous LE and UE b/l, non pitting. Diaphoretic Neg Babinski Neg Cardona's No Clonus Dressing CDI Low back - Cardiovascular Heart rate: 100 Rhythm: regular - Gastrointestinal General gastrointestinal: Present: distended, soft - Integumentary Integumentary: Present: flushed - Allied health notes Allied health notes reviewed: nursing - Labs CBC & Chem 7: 03/30/23 03:10 03/30/23 03:10 Labs: Abnormal Lab Results - Last 24 Hours (Table) 03/29/23 03/29/23 03/29/23 Range/Units 09:57 13:57 14:24 WBC (3.8-10.6) k/uL RBC (3.80-5.40) m/uL Hgb (11.4-16.0) gm/dL Hct (34.0-46.0) % MCV (80.0-100.0) fL Neutrophils # (Manual) (1.3-7.7) k/uL Lymphocytes # (Manual) (1.0-4.8) k/uL Metamyelocytes # (Man) (0) k/uL Myelocytes # (Manual) (0) k/uL Nucleated RBCs (0-0) /100 WBC D-Dimer (<0.60) mg/L FEU ABG pH 7.14 L* (7.35-7.45) ABG pCO2 59 H (35-45) mmHg ABG pO2 53 L* (83-108) mmHg ABG HCO3 20 L (21-25) mmol/L ABG O2 Saturation 77.2 L (94-97) % Sodium (137-145) mmol/L Potassium (3.5-5.1) mmol/L Chloride (98-107) mmol/L Carbon Dioxide (22-30) mmol/L BUN (7-17) mg/dL Creatinine (0.52-1.04) mg/dL Glucose (74-99) mg/dL POC Glucose (mg/dL) 131 H 152 H (70-110) mg/dL Calcium (8.4-10.2) mg/dL Delta Bilirubin (0.0-0.2) mg/dL Total Protein (6.3-8.2) g/dL Albumin (3.5-5.0) g/dL Procalcitonin (0.02-0.09) ng/mL Crossmatch 03/29/23 03/29/23 03/29/23 Range/Units 15:19 15:20 15:20 WBC 1.6 L (3.8-10.6) k/uL RBC 2.87 L (3.80-5.40) m/uL Hgb 9.4 L (11.4-16.0) gm/dL Hct 29.4 L (34.0-46.0) % MCV 102.2 H (80.0-100.0) fL Neutrophils # (Manual) 0.90 L (1.3-7.7) k/uL Lymphocytes # (Manual) 0.45 L (1.0-4.8) k/uL Metamyelocytes # (Man) 0.06 H (0) k/uL Myelocytes # (Manual) (0) k/uL Nucleated RBCs 3 H (0-0) /100 WBC D-Dimer 27.06 H (<0.60) mg/L FEU ABG pH (7.35-7.45) ABG pCO2 (35-45) mmHg ABG pO2 (83-108) mmHg ABG HCO3 (21-25) mmol/L ABG O2 Saturation (94-97) % Sodium (137-145) mmol/L Potassium (3.5-5.1) mmol/L Chloride (98-107) mmol/L Carbon Dioxide (22-30) mmol/L BUN (7-17) mg/dL Creatinine (0.52-1.04) mg/dL Glucose (74-99) mg/dL POC Glucose (mg/dL) 135 H (70-110) mg/dL Calcium (8.4-10.2) mg/dL Delta Bilirubin (0.0-0.2) mg/dL Total Protein (6.3-8.2) g/dL Albumin (3.5-5.0) g/dL Procalcitonin (0.02-0.09) ng/mL Crossmatch 03/29/23 03/29/23 03/29/23 Range/Units 15:20 15:20 15:20 WBC (3.8-10.6) k/uL RBC (3.80-5.40) m/uL Hgb (11.4-16.0) gm/dL Hct (34.0-46.0) % MCV (80.0-100.0) fL Neutrophils # (Manual) (1.3-7.7) k/uL Lymphocytes # (Manual) (1.0-4.8) k/uL Metamyelocytes # (Man) (0) k/uL Myelocytes # (Manual) (0) k/uL Nucleated RBCs (0-0) /100 WBC D-Dimer (<0.60) mg/L FEU ABG pH (7.35-7.45) ABG pCO2 (35-45) mmHg ABG pO2 (83-108) mmHg ABG HCO3 (21-25) mmol/L ABG O2 Saturation (94-97) % Sodium (137-145) mmol/L Potassium 3.2 L (3.5-5.1) mmol/L Chloride 108 H (98-107) mmol/L Carbon Dioxide (22-30) mmol/L BUN (7-17) mg/dL Creatinine 1.08 H (0.52-1.04) mg/dL Glucose 140 H (74-99) mg/dL POC Glucose (mg/dL) (70-110) mg/dL Calcium 7.1 L (8.4-10.2) mg/dL Delta Bilirubin 0.6 H (0.0-0.2) mg/dL Total Protein 3.9 L (6.3-8.2) g/dL Albumin 2.0 L (3.5-5.0) g/dL Procalcitonin 6.72 H (0.02-0.09) ng/mL Crossmatch See Detail 03/29/23 03/29/23 03/29/23 Range/Units 15:55 18:34 18:43 WBC (3.8-10.6) k/uL RBC (3.80-5.40) m/uL Hgb (11.4-16.0) gm/dL Hct (34.0-46.0) % MCV (80.0-100.0) fL Neutrophils # (Manual) (1.3-7.7) k/uL Lymphocytes # (Manual) (1.0-4.8) k/uL Metamyelocytes # (Man) (0) k/uL Myelocytes # (Manual) (0) k/uL Nucleated RBCs (0-0) /100 WBC D-Dimer (<0.60) mg/L FEU ABG pH 7.13 L* 7.15 L* (7.35-7.45) ABG pCO2 62 H 55 H (35-45) mmHg ABG pO2 68 L 65 L (83-108) mmHg ABG HCO3 19 L (21-25) mmol/L ABG O2 Saturation 87.9 L 88.8 L (94-97) % Sodium (137-145) mmol/L Potassium (3.5-5.1) mmol/L Chloride (98-107) mmol/L Carbon Dioxide (22-30) mmol/L BUN (7-17) mg/dL Creatinine (0.52-1.04) mg/dL Glucose (74-99) mg/dL POC Glucose (mg/dL) 197 H (70-110) mg/dL Calcium (8.4-10.2) mg/dL Delta Bilirubin (0.0-0.2) mg/dL Total Protein (6.3-8.2) g/dL Albumin (3.5-5.0) g/dL Procalcitonin (0.02-0.09) ng/mL Crossmatch 03/29/23 03/29/23 03/29/23 Range/Units 20:48 20:49 23:48 WBC (3.8-10.6) k/uL RBC (3.80-5.40) m/uL Hgb (11.4-16.0) gm/dL Hct (34.0-46.0) % MCV (80.0-100.0) fL Neutrophils # (Manual) (1.3-7.7) k/uL Lymphocytes # (Manual) (1.0-4.8) k/uL Metamyelocytes # (Man) (0) k/uL Myelocytes # (Manual) (0) k/uL Nucleated RBCs (0-0) /100 WBC D-Dimer (<0.60) mg/L FEU ABG pH 7.20 L (7.35-7.45) ABG pCO2 47 H (35-45) mmHg ABG pO2 55 L* (83-108) mmHg ABG HCO3 19 L (21-25) mmol/L ABG O2 Saturation 84.8 L (94-97) % Sodium (137-145) mmol/L Potassium 3.4 L (3.5-5.1) mmol/L Chloride (98-107) mmol/L Carbon Dioxide (22-30) mmol/L BUN (7-17) mg/dL Creatinine (0.52-1.04) mg/dL Glucose (74-99) mg/dL POC Glucose (mg/dL) 175 H (70-110) mg/dL Calcium (8.4-10.2) mg/dL Delta Bilirubin (0.0-0.2) mg/dL Total Protein (6.3-8.2) g/dL Albumin (3.5-5.0) g/dL Procalcitonin (0.02-0.09) ng/mL Crossmatch 03/30/23 03/30/23 03/30/23 Range/Units 03:10 03:10 05:41 WBC 15.8 H (3.8-10.6) k/uL RBC 3.08 L (3.80-5.40) m/uL Hgb 10.0 L (11.4-16.0) gm/dL Hct 31.9 L (34.0-46.0) % MCV 103.7 H (80.0-100.0) fL Neutrophils # (Manual) 13.90 H (1.3-7.7) k/uL Lymphocytes # (Manual) 0.32 L (1.0-4.8) k/uL Metamyelocytes # (Man) 0.63 H (0) k/uL Myelocytes # (Manual) 0.32 H (0) k/uL Nucleated RBCs 1 H (0-0) /100 WBC D-Dimer (<0.60) mg/L FEU ABG pH 7.22 L (7.35-7.45) ABG pCO2 (35-45) mmHg ABG pO2 123 H (83-108) mmHg ABG HCO3 18 L (21-25) mmol/L ABG O2 Saturation 98.2 H (94-97) % Sodium 135 L (137-145) mmol/L Potassium (3.5-5.1) mmol/L Chloride 108 H (98-107) mmol/L Carbon Dioxide 15 L (22-30) mmol/L BUN 19 H (7-17) mg/dL Creatinine 1.35 H (0.52-1.04) mg/dL Glucose 223 H (74-99) mg/dL POC Glucose (mg/dL) (70-110) mg/dL Calcium 7.4 L (8.4-10.2) mg/dL Delta Bilirubin (0.0-0.2) mg/dL Total Protein (6.3-8.2) g/dL Albumin (3.5-5.0) g/dL Procalcitonin (0.02-0.09) ng/mL Crossmatch 03/30/23 Range/Units 06:03 WBC (3.8-10.6) k/uL RBC (3.80-5.40) m/uL Hgb (11.4-16.0) gm/dL Hct (34.0-46.0) % MCV (80.0-100.0) fL Neutrophils # (Manual) (1.3-7.7) k/uL Lymphocytes # (Manual) (1.0-4.8) k/uL Metamyelocytes # (Man) (0) k/uL Myelocytes # (Manual) (0) k/uL Nucleated RBCs (0-0) /100 WBC D-Dimer (<0.60) mg/L FEU ABG pH (7.35-7.45) ABG pCO2 (35-45) mmHg ABG pO2 (83-108) mmHg ABG HCO3 (21-25) mmol/L ABG O2 Saturation (94-97) % Sodium (137-145) mmol/L Potassium (3.5-5.1) mmol/L Chloride (98-107) mmol/L Carbon Dioxide (22-30) mmol/L BUN (7-17) mg/dL Creatinine (0.52-1.04) mg/dL Glucose (74-99) mg/dL POC Glucose (mg/dL) 233 H (70-110) mg/dL Calcium (8.4-10.2) mg/dL Delta Bilirubin (0.0-0.2) mg/dL Total Protein (6.3-8.2) g/dL Albumin (3.5-5.0) g/dL Procalcitonin (0.02-0.09) ng/mL Crossmatch - Imaging and Cardiology Chest x-ray: report reviewed, image reviewed CT scan - abdomen: report reviewed, image reviewed Assessment and Plan Assessment: 73 yo female with degenerative lumbar scoliosis surgery 03/21/23 and 03/29/23 POD 9 and 1 from lumbar decompression fusion T10-P with revision dural repair due to dural erosion ARF, Likely aspiration event during 03/29/23 surgery, possibly on intubation DMII, poor control, Gastorparesis Complex medical patient Plan: -Cont specification consultant and team management. PCC and Medicine primary ICU mgt. Vent and meds, pressers per ICU team. -Activity: Bedrest currently. Turn q2. Check dressing regularly. Elevate heels. Dickens boots. PT to move legs and arms to decrease edema. -Pain control: Vented, sedated -Meds: [reviewed] -GI ppx: senna, Miralax, mag citrate, -Garnett catheter -DVT PPX: Mechanical, OK to restart Chemo ppx tonight 24 hr post op -Hygiene: Maintain dressing clean and dry. Meticulous cleaning after BMs away from incision site -No drain -Dispo: [Pending]
--- NOTE | 2023-03-30 08:59 | P.PN ---
Subjective Progress Note Date: 03/30/23 Principal diagnosis: 1. L1-S1 spondylosis with stenosis 2. L1-S1 spondylolisthesis 3. Lower extremity radiculopathy 4. Low back pain 5. Lower extremity weakness Patient seen and examined this morning. Patient is currently sedated on mechanical ventilation. Spouse is at bedside. Current vitals BP 120/50, HR 97, Resp 32, O2 sat 96%. Patient remains on vasopressin and levophed. NG tube is present with output of 600ml overnight. 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 Staff had turned patient to her side to assess surgical dressing and her O2 sat increased to 97%. ABGs this morning have improved. Surgical dressing is CDI, scant shadowing at the site of trinh, No significant drainage noted. There is no edema noted to bilateral upper and lower extremities. SCDs and Prafo boots are present to lower extremities. Garnett cath is present and patent. Patient has remained afebrile. Objective - Vital Signs Vital signs: Vital Signs Temp 98.3 F 03/30/23 04:00 Pulse 97 03/30/23 07:15 Resp 32 H 03/30/23 07:15 BP 128/70 03/29/23 14:52 Pulse Ox 96 03/30/23 07:15 FiO2 100 03/30/23 07:00 Intake & Output 03/29/23 03/30/23 03/30/23 18:59 06:59 18:59 Intake Total 2463.015 993.460 20 Output Total 550 865 25 Balance 1913.015 128.460 -5 Weight 97 kg Intake: IV 1650 470 20 Lactated Ringers 1,000 ml 220 20 @ 20 mls/hr IV .Q24H [facility] Rx#:[id number] Potassium Chloride 10 meq 200 In Water For Injection 1 100ml.bag @ 100 mls/hr IVPB Q1H [facility] Rx#: [id number] ceFAZolin 2 gm In Sodium 50 Chloride 0.9% 50 ml @ 100 mls/hr IVPB Q8H [facility] Rx#: [id number] Intake, IV Titration 813.015 463.460 Amount Cisatracurium 200 mg In 38.994 Sodium Chloride 0.9% 180 ml @ 2 MCG/KG/MIN 11.64 mls/hr IV .[id number] [facility] Rx #:[id number] Lactated Ringers 1,000 ml 20 @ 20 mls/hr IV .Q24H [facility] Rx#:[id number] Magnesium Sulfate-D5w Pmx 200 1 gm In Dextrose/Water 1 100ml.bag @ 100 mls/hr IVPB Q1H [facility] Rx#: [id number] Norepinephrine 32 mg In 109.847 Sodium Chloride 0.9% 218 ml @ 0.03 MCG/KG/MIN 1. 364 mls/hr IV .Q24H [facility] Rx#:[id number] Norepinephrine 8 mg In 43.015 54.084 Sodium Chloride 0.9% 250 ml @ 0.03 MCG/KG/MIN 5.66 mls/hr IV .Q24H [facility] Rx#: [id number] Vancomycin 1,500 mg In 500 Sodium Chloride 0.9% 500 ml 500 ml @ 167 mls/hr IVPB Q24H [facility] Rx#: [id number] cefTRIAXone 2 gm In 50 Sodium Chloride 0.9% 50 ml @ 100 mls/hr IVPB Q12HR [facility] Rx#:[id number] propofoL 1,000 mg In 260.535 Empty Bag 1 bag @ 15 MCG/ KG/MIN 8.73 mls/hr IV . [id number] [facility] Rx#:[id number] Other 60 Output: Gastric Drainage 600 Urine 450 265 25 Estimated Blood Loss 100 Other: Voiding Method Indwelling Catheter Indwelling Catheter ABP, PAP, CO, CI - Last Documented Arterial Blood Pressure 122/49 - Exam Physical Examination Patient remains sedated and on Mechanical ventilation, settings currently FIO2 100%, PEEP 15, O2 sat 96%, NG tube remains intact with an output of 600ml overnight. Inspection: RN reports that patient was turned at [place] and dressing had scant shadowing noted on dressing at the area of trinh. No significant drainage noted. No edema noted to bilateral upper and lower extremities. Garnett catheter remains in place and patent. SCDs and Prafo boots are present to lower extremities. Neurovascular: Radial pulse intact, 2+ bilaterally. Cap refill under 3 seconds in digits upper extremities. - Labs CBC & Chem 7: 03/30/23 03:10 03/30/23 03:10 Labs: Abnormal Lab Results - Last 24 Hours (Table) 03/29/23 03/29/2323 Range/Units 09:57 13:57 14:24 WBC (3.8-10.6) k/uL RBC (3.80-5.40) m/uL Hgb (11.4-16.0) gm/dL Hct (34.0-46.0) % MCV (80.0-100.0) fL Neutrophils # (Manual) (1.3-7.7) k/uL Lymphocytes # (Manual) (1.0-4.8) k/uL Metamyelocytes # (Man) (0) k/uL Myelocytes # (Manual) (0) k/uL Nucleated RBCs (0-0) /100 WBC D-Dimer (<0.60) mg/L FEU ABG pH 7.14 L* (7.35-7.45) ABG pCO2 59 H (35-45) mmHg ABG pO2 53 L* (83-108) mmHg ABG HCO3 20 L (21-25) mmol/L ABG O2 Saturation 77.2 L (94-97) % Sodium (137-145) mmol/L Potassium (3.5-5.1) mmol/L Chloride (98-107) mmol/L Carbon Dioxide (22-30) mmol/L BUN (7-17) mg/dL Creatinine (0.52-1.04) mg/dL Glucose (74-99) mg/dL POC Glucose (mg/dL) 131 H 152 H (70-110) mg/dL Calcium (8.4-10.2) mg/dL Delta Bilirubin (0.0-0.2) mg/dL Total Protein (6.3-8.2) g/dL Albumin (3.5-5.0) g/dL Procalcitonin (0.02-0.09) ng/mL Crossmatch 03/29/23 03/29/23 03/29/23 Range/Units 15:19 15:20 15:20 WBC 1.6 L (3.8-10.6) k/uL RBC 2.87 L (3.80-5.40) m/uL Hgb 9.4 L (11.4-16.0) gm/dL Hct 29.4 L (34.0-46.0) % MCV 102.2 H (80.0-100.0) fL Neutrophils # (Manual) 0.90 L (1.3-7.7) k/uL Lymphocytes # (Manual) 0.45 L (1.0-4.8) k/uL Metamyelocytes # (Man) 0.06 H (0) k/uL Myelocytes # (Manual) (0) k/uL Nucleated RBCs 3 H (0-0) /100 WBC D-Dimer 27.06 H (<0.60) mg/L FEU ABG pH (7.35-7.45) ABG pCO2 (35-45) mmHg ABG pO2 (83-108) mmHg ABG HCO3 (21-25) mmol/L ABG O2 Saturation (94-97) % Sodium (137-145) mmol/L Potassium (3.5-5.1) mmol/L Chloride (98-107) mmol/L Carbon Dioxide (22-30) mmol/L BUN (7-17) mg/dL Creatinine (0.52-1.04) mg/dL Glucose (74-99) mg/dL POC Glucose (mg/dL) 135 H (70-110) mg/dL Calcium (8.4-10.2) mg/dL Delta Bilirubin (0.0-0.2) mg/dL Total Protein (6.3-8.2) g/dL Albumin (3.5-5.0) g/dL Procalcitonin (0.02-0.09) ng/mL Crossmatch 03/29/23 03/29/23 03/29/23 Range/Units 15:20 15:20 15:20 WBC (3.8-10.6) k/uL RBC (3.80-5.40) m/uL Hgb (11.4-16.0) gm/dL Hct (34.0-46.0) % MCV (80.0-100.0) fL Neutrophils # (Manual) (1.3-7.7) k/uL Lymphocytes # (Manual) (1.0-4.8) k/uL Metamyelocytes # (Man) (0) k/uL Myelocytes # (Manual) (0) k/uL Nucleated RBCs (0-0) /100 WBC D-Dimer (<0.60) mg/L FEU ABG pH (7.35-7.45) ABG pCO2 (35-45) mmHg ABG pO2 (83-108) mmHg ABG HCO3 (21-25) mmol/L ABG O2 Saturation (94-97) % Sodium (137-145) mmol/L Potassium 3.2 L (3.5-5.1) mmol/L Chloride 108 H (98-107) mmol/L Carbon Dioxide (22-30) mmol/L BUN (7-17) mg/dL Creatinine 1.08 H (0.52-1.04) mg/dL Glucose 140 H (74-99) mg/dL POC Glucose (mg/dL) (70-110) mg/dL Calcium 7.1 L (8.4-10.2) mg/dL Delta Bilirubin 0.6 H (0.0-0.2) mg/dL Total Protein 3.9 L (6.3-8.2) g/dL Albumin 2.0 L (3.5-5.0) g/dL Procalcitonin 6.72 H (0.02-0.09) ng/mL Crossmatch See Detail 03/29/23 03/29/23 03/29/23 Range/Units 15:55 18:34 18:43 WBC (3.8-10.6) k/uL RBC (3.80-5.40) m/uL Hgb (11.4-16.0) gm/dL Hct (34.0-46.0) % MCV (80.0-100.0) fL Neutrophils # (Manual) (1.3-7.7) k/uL Lymphocytes # (Manual) (1.0-4.8) k/uL Metamyelocytes # (Man) (0) k/uL Myelocytes # (Manual) (0) k/uL Nucleated RBCs (0-0) /100 WBC D-Dimer (<0.60) mg/L FEU ABG pH 7.13 L* 7.15 L* (7.35-7.45) ABG pCO2 62 H 55 H (35-45) mmHg ABG pO2 68 L 65 L (83-108) mmHg ABG HCO3 19 L (21-25) mmol/L ABG O2 Saturation 87.9 L 88.8 L (94-97) % Sodium (137-145) mmol/L Potassium (3.5-5.1) mmol/L Chloride (98-107) mmol/L Carbon Dioxide (22-30) mmol/L BUN (7-17) mg/dL Creatinine (0.52-1.04) mg/dL Glucose (74-99) mg/dL POC Glucose (mg/dL) 197 H (70-110) mg/dL Calcium (8.4-10.2) mg/dL Delta Bilirubin (0.0-0.2) mg/dL Total Protein (6.3-8.2) g/dL Albumin (3.5-5.0) g/dL Procalcitonin (0.02-0.09) ng/mL Crossmatch 03/29/23 03/29/23 03/29/23 Range/Units 20:48 20:49 23:48 WBC (3.8-10.6) k/uL RBC (3.80-5.40) m/uL Hgb (11.4-16.0) gm/dL Hct (34.0-46.0) % MCV (80.0-100.0) fL Neutrophils # (Manual) (1.3-7.7) k/uL Lymphocytes # (Manual) (1.0-4.8) k/uL Metamyelocytes # (Man) (0) k/uL Myelocytes # (Manual) (0) k/uL Nucleated RBCs (0-0) /100 WBC D-Dimer (<0.60) mg/L FEU ABG pH 7.20 L (7.35-7.45) ABG pCO2 47 H (35-45) mmHg ABG pO2 55 L* (83-108) mmHg ABG HCO3 19 L (21-25) mmol/L ABG O2 Saturation 84.8 L (94-97) % Sodium (137-145) mmol/L Potassium 3.4 L (3.5-5.1) mmol/L Chloride (98-107) mmol/L Carbon Dioxide (22-30) mmol/L BUN (7-17) mg/dL Creatinine (0.52-1.04) mg/dL Glucose (74-99) mg/dL POC Glucose (mg/dL) 175 H (70-110) mg/dL Calcium (8.4-10.2) mg/dL Delta Bilirubin (0.0-0.2) mg/dL Total Protein (6.3-8.2) g/dL Albumin (3.5-5.0) g/dL Procalcitonin (0.02-0.09) ng/mL Crossmatch 03/30/23 03/30/23 03/30/23 Range/Units 03:10 03:10 05:41 WBC 15.8 H (3.8-10.6) k/uL RBC 3.08 L (3.80-5.40) m/uL Hgb 10.0 L (11.4-16.0) gm/dL Hct 31.9 L (34.0-46.0) % MCV 103.7 H (80.0-100.0) fL Neutrophils # (Manual) 13.90 H (1.3-7.7) k/uL Lymphocytes # (Manual) 0.32 L (1.0-4.8) k/uL Metamyelocytes # (Man) 0.63 H (0) k/uL Myelocytes # (Manual) 0.32 H (0) k/uL Nucleated RBCs 1 H (0-0) /100 WBC D-Dimer (<0.60) mg/L FEU ABG pH 7.22 L (7.35-7.45) ABG pCO2 (35-45) mmHg ABG pO2 123 H (83-108) mmHg ABG HCO3 18 L (21-25) mmol/L ABG O2 Saturation 98.2 H (94-97) % Sodium 135 L (137-145) mmol/L Potassium (3.5-5.1) mmol/L Chloride 108 H (98-107) mmol/L Carbon Dioxide 15 L (22-30) mmol/L BUN 19 H (7-17) mg/dL Creatinine 1.35 H (0.52-1.04) mg/dL Glucose 223 H (74-99) mg/dL POC Glucose (mg/dL) (70-110) mg/dL Calcium 7.4 L (8.4-10.2) mg/dL Delta Bilirubin (0.0-0.2) mg/dL Total Protein (6.3-8.2) g/dL Albumin (3.5-5.0) g/dL Procalcitonin (0.02-0.09) ng/mL Crossmatch 03/30/23 Range/Units 06:03 WBC (3.8-10.6) k/uL RBC (3.80-5.40) m/uL Hgb (11.4-16.0) gm/dL Hct (34.0-46.0) % MCV (80.0-100.0) fL Neutrophils # (Manual) (1.3-7.7) k/uL Lymphocytes # (Manual) (1.0-4.8) k/uL Metamyelocytes # (Man) (0) k/uL Myelocytes # (Manual) (0) k/uL Nucleated RBCs (0-0) /100 WBC D-Dimer (<0.60) mg/L FEU ABG pH (7.35-7.45) ABG pCO2 (35-45) mmHg ABG pO2 (83-108) mmHg ABG HCO3 (21-25) mmol/L ABG O2 Saturation (94-97) % Sodium (137-145) mmol/L Potassium (3.5-5.1) mmol/L Chloride (98-107) mmol/L Carbon Dioxide (22-30) mmol/L BUN (7-17) mg/dL Creatinine (0.52-1.04) mg/dL Glucose (74-99) mg/dL POC Glucose (mg/dL) 233 H (70-110) mg/dL Calcium (8.4-10.2) mg/dL Delta Bilirubin (0.0-0.2) mg/dL Total Protein (6.3-8.2) g/dL Albumin (3.5-5.0) g/dL Procalcitonin (0.02-0.09) ng/mL Crossmatch Assessment and Plan Assessment: Postop Day 1: Irrigation and Debridement with revision dural repair lumbar spine ; Postop Day 9: [id number] decompression and fusion 1. Possible Aspiration Pneumonia 2. Possible post-op Ileus 3. Post-op anemia-resolved 4. L1-S1 spondylosis with stenosis 5. L1-S1 spondylolisthesis 6. Lower extremity radiculopathy 7. Low back pain 8. Lower extremity weakness Plan: -Appreciate consultant dietitian and team management. -Maintain NPO -Activity: ROM exercises of extremities if medically tolerated. -Pain control: Adequate at this time -Meds: reviewed -GI ppx: protonix -DVT PPX: SCDs and TEDS -Hygiene: Maintain dressing clean and dry. Meticulous cleaning after BMs away from the incision site -Dispo: Clinically pending *I reviewed and discussed this case with my attending Dr. Duong, whom has reviewed this chart and films and is in agreement with assessment and plan of care as outlined above. I have personally seen and examined the patient, performed the documentation and the assessment and plan as written. Number of minutes spent on the visit: 20m.
--- NOTE | 2023-03-30 10:06 | XR ---
EXAMINATION TYPE: XR chest 1V portable DATE OF EXAM: 03/30/2023 Comparison: 03/29/2023 Clinical History: 73-year-old female Tube placement Findings: ET tube satisfactory. Distal aspect of the NG tube is outside the field of view. The image cuts off a t the GE junction level. There are posterior midline skin trinh and lower thoracic posterior fusion hardware noted. Heart is upper limits of normal in size. Diffuse bilateral airspace disease persists . There is a slight interval improvement on the right. Right IJ CVC tip within the upper right atrium . Impression: 1. Distal aspect of the NG tube is outside the field of view. 2. Ongoing diffuse bilateral airspace disease though with some interval improvement on the right.
--- NOTE | 2023-03-30 10:09 | P.PN ---
Subjective Progress Note Date: 03/30/23 Principal diagnosis: Respiratory failure. I am seeing this patient in new consultation today 03/22/2023 status postoperative day #1 following an elective T10 to pelvis decompression and fusion. Patient is a 72-year-old female with past medical history significant for chronic back pain and lumbar radiculopathy, diabetes mellitus type 2, hyperlipidemia, hypertension. Patient has been complaining of lumbar radiculopathy like symptoms earlier this year, and was evaluated by Dr. Duong. She was found to have multilevel spondylosis and spondylolisthesis. She underwent an elective T10 to pelvis decompression and fusion yesterday with Dr. Duong. She did have some postoperative hypotension. Estimated blood loss was reported as 700 ML's. She was given 1 unit PRBC, and a total of 2.5 L normal saline bolus. Blood pressures are now normotensive. Urine output is ad equate in the order of 50-60 ML's per hour. Patient was extubated successfully in recovery, currently on 4 L/m nasal cannula, in no acute distress. Postoperative chest x-ray shows no acute cardiopulmonary processes. There is a right sided intrajugular central line catheter near the cavoatrial junction. There were also some postsurgical changes. Patient is currently supine in bed. No focal neurological deficits. She is able to move all 4 extremities. Denies any sensation disturbances or saddle anesthesia. Postoperative CBC shows WBC count of 11.7, hemoglobin 8, hematocrit 23, platelets 173. BMP sodium 136, potassium 3.8, chloride 109, serum bicarb 11, BUN 18, creatinine 0.6, glucose 220. Magnesium was low at 1.3. Normal saline with 20 mEq of potassium is infusing at 50 ML's per hour. Nasal swab was positive and colonized with MSSA preoperatively, and the patient is currently on cefazolin. Pain is reportedly well managed on current regimen. Patient will be monitored in the intensive care unit. , patient remains in the ICU, hemodynamically stable, doing extremely well, denies any headache no blurred vision, no nausea no vomiting no abdominal pain, she has improvement in her radicular pain and numbness and tingling into the lower extremities. Her hemoglobin today is 9.3, Garnett catheter remains in place, patient will likely be transferred out of the ICU to a medical surgical floor today. WBC count is 10.5 hemoglobin 9.3 electrodes are normal renal profi le is normal. Bicarb is 19 Progress note dated 03/29/2023. 73-year-old female who went back to the operating room, after having surgery, to repair, a dural leak, in her lumbar spine. Unfortunately, the patient apparently was quite hypoxemic after the procedure, and they've had a large- volume asked her to aspiration. Seen today again one recovery, on the mechanical ventilator. She is on pressure assist control, with an inspiratory pressure of 22 cm water and inspiratory time of 1.1 seconds. Her rate is 20, her FiO2 was 100%, and a PEEP is 12. No gases been done as yet. She's also getting a bolus of lactated Ringer's, Eric-Synephrine pushes, and norepinephrine has been ordered. Anesthesiologist was placing an arterial line. I did speak to the surgeon, Dr. Duong. The patient will be transferred to the intensive care unit. The only labs from today include a glucose of 152, and a blood gas showing a pO2 of 53, pCO2 of 59, and a pH is 7.14. I'm not sure what settings the patient was on at that time. Chest x-ray shows bilateral consolidations, and infiltrative changes, which could be consistent with aspiration, and/or pulmonary edema. Progress note dated 03/30/2023. 73-year-old female who was seen in room 252, intensive care unit. She was seen yesterday, in the phase I recovery area, having had recent surgery for a dural tear. The patient unfortunately developed a high volume gastric aspiration, with respiratory failure, requiring intubation and mechanical ventilation. She's currently in the intensive care unit. She's on volume assist control, rate 32, tidal volume 400, FiO2 100%, PEEP of 15. Blood gases show pO2 123, a pCO2 44, and a pH is 7.22. The FiO2 was reduced down to 90%. In addition she is getting lactated Ringer's at 20 mL an hour, saline at KVO, Nimbex at 1 mcg/kg/m, norepinephrine at 25 mcg/m, vasopressin at 0.04 units per minute, prop ofol at 40 mcg/kg/m. The patient's on vancomycin and Rocephin. White count 15.8, hemoglobin 10, hematocrit 31.9, with a normal platelet count. Sodium 135, potassium 3.9, chlorides 108, CO2 15, anion gap 12, BUN 19, and creatinine 1.35. Magnesium is 2.2. Thus far, cultures are negative. Nasal swab was positive for staph aureus, not MRSA. Chest x-ray shows some bilateral airspace disease, which might be a bit improved, likely because of positive pressure ventilation. Objective - Vital Signs Vital signs: Vital Signs Temp 98.3 F 03/30/23 04:00 Pulse 98 03/30/23 09:26 Resp 32 H 03/30/23 09:26 BP 128/70 03/29/23 14:52 Pulse Ox 96 03/30/23 07:15 FiO2 80 03/30/23 09:27 Intake & Output 03/29/23 03/30/23 03/30/23 18:59 06:59 18:59 Intake Total 2463.015 993.460 99.013 Output Total 550 865 70 Balance 1913.015 128.460 29.013 Weight 97 kg Intake: IV 1650 470 60 Lactated Ringers 1,000 ml 220 60 @ 20 mls/hr IV .Q24H [facility] Rx#:[id number] Potassium Chloride 10 meq 200 In Water For Injection 1 100ml.bag @ 100 mls/hr IVPB Q1H [facility] Rx#: [id number] ceFAZolin 2 gm In Sodium 50 Chloride 0.9% 50 ml @ 100 mls/hr IVPB Q8H [facility] Rx#: [id number] Intake, IV Titration 813.015 463.460 39.013 Amount Cisatracurium 200 mg In 38.994 Sodium Chloride 0.9% 180 ml @ 2 MCG/KG/MIN 11.64 mls/hr IV .[id number] [facility] Rx #:[id number] Lactated Ringers 1,000 ml 20 @ 20 mls/hr IV .Q24H [facility] Rx#:[id number] Magnesium Sulfate-D5w Pmx 200 1 gm In Dextrose/Water 1 100ml.bag @ 100 mls/hr IVPB Q1H [facility] Rx#: [id number] Norepinephrine 32 mg In 109.847 39.013 Sodium Chloride 0.9% 218 ml @ 0.03 MCG/KG/MIN 1. 364 mls/hr IV .Q24H [facility] Rx#:[id number] Norepinephrine 8 mg In 43.015 54.084 Sodium Chloride 0.9% 250 ml @ 0.03 MCG/KG/MIN 5.66 mls/hr IV .Q24H [facility] Rx#: [id number] Vancomycin 1,500 mg In 500 Sodium Chloride 0.9% 500 ml 500 ml @ 167 mls/hr IVPB Q24H [facility] Rx#: [id number] cefTRIAXone 2 gm In 50 Sodium Chloride 0.9% 50 ml @ 100 mls/hr IVPB Q12HR [facility] Rx#:[id number] propofoL 1,000 mg In 260.535 Empty Bag 1 bag @ 15 MCG/ KG/MIN 8.73 mls/hr IV . [id number] [facility] Rx#:[id number] Other 60 Output: Gastric Drainage 600 Urine 450 265 70 Estimated Blood Loss 100 Other: Voiding Method Indwelling Catheter Indwelling Catheter ABP, PAP, CO, CI - Last Documented Arterial Blood Pressure 122/49 - Exam No acute distress, sedated, intubated, on 100% oxygen. HEENT examination is grossly unremarkable. Neck supple. Full range of motion. No adenopathy thyromegaly or neck vein distention. Cardiovascular examination reveals regular rhythm rate. S1-S2 normal. No S3 or S4. No discernible murmur noted. Heart rate 98 bpm. Lungs reveal scattered bilateral rhonchi. Breath sounds equal. Saturations are 96% Abdomen soft without bowel sounds. Extremities are intact. No cyanosis clubbing or edema. Skin is without rash or lesion. Neurologic examination cannot be assessed at this time. - Labs CBC & Chem 7: 03/30/23 03:10 03/30/23 03:10 Labs: Abnormal Lab Results - Last 24 Hours (Table) 03/29/23 03/29/23 03/29/23 Range/Units 13:57 14:24 15:19 WBC (3.8-10.6) k/uL RBC (3.80-5.40) m/uL Hgb (11.4-16.0) gm/dL Hct (34.0-46.0) % MCV (80.0-100.0) fL Neutrophils # (Manual) (1.3-7.7) k/uL Lymphocytes # (Manual) (1.0-4.8) k/uL Metamyelocytes # (Man) (0) k/uL Myelocytes # (Manual) (0) k/uL Nucleated RBCs (0-0) /100 WBC D-Dimer (<0.60) mg/L FEU ABG pH 7.14 L* (7.35-7.45) ABG pCO2 59 H (35-45) mmHg ABG pO2 53 L* (83-108) mmHg ABG HCO3 20 L (21-25) mmol/L ABG O2 Saturation 77.2 L (94-97) % Sodium (137-145) mmol/L Potassium (3.5-5.1) mmol/L Chloride (98-107) mmol/L Carbon Dioxide (22-30) mmol/L BUN (7-17) mg/dL Creatinine (0.52-1.04) mg/dL Glucose (74-99) mg/dL POC Glucose (mg/dL) 152 H 135 H (70-110) mg/dL Calcium (8.4-10.2) mg/dL Delta Bilirubin (0.0-0.2) mg/dL Total Protein (6.3-8.2) g/dL Albumin (3.5-5.0) g/dL Procalcitonin (0.02-0.09) ng/mL Crossmatch 03/29/23 03/29/23 03/29/23 Range/Units 15:20 15:20 15:20 WBC 1.6 L (3.8-10.6) k/uL RBC 2.87 L (3.80-5.40) m/uL Hgb 9.4 L (11.4-16.0) gm/dL Hct 29.4 L (34.0-46.0) % MCV 102.2 H (80.0-100.0) fL Neutrophils # (Manual) 0.90 L (1.3-7.7) k/uL Lymphocytes # (Manual) 0.45 L (1.0-4.8) k/uL Metamyelocytes # (Man) 0.06 H (0) k/uL Myelocytes # (Manual) (0) k/uL Nucleated RBCs 3 H (0-0) /100 WBC D-Dimer 27.06 H (<0.60) mg/L FEU ABG pH (7.35-7.45) ABG pCO2 (35-45) mmHg ABG pO2 (83-108) mmHg ABG HCO3 (21-25) mmol/L ABG O2 Saturation (94-97) % Sodium (137-145) mmol/L Potassium 3.2 L (3.5-5.1) mmol/L Chloride 108 H (98-107) mmol/L Carbon Dioxide (22-30) mmol/L BUN (7-17) mg/dL Creatinine 1.08 H (0.52-1.04) mg/dL Glucose 140 H (74-99) mg/dL POC Glucose (mg/dL) (70-110) mg/dL Calcium 7.1 L (8.4-10.2) mg/dL Delta Bilirubin 0.6 H (0.0-0.2) mg/dL Total Protein 3.9 L (6.3-8.2) g/dL Albumin 2.0 L (3.5-5.0) g/dL Procalcitonin (0.02-0.09) ng/mL Crossmatch 03/29/23 03/29/23 03/29/23 Range/Units 15:20 15:20 15:55 WBC (3.8-10.6) k/uL RBC (3.80-5.40) m/uL Hgb (11.4-16.0) gm/dL Hct (34.0-46.0) % MCV (80.0-100.0) fL Neutrophils # (Manual) (1.3-7.7) k/uL Lymphocytes # (Manual) (1.0-4.8) k/uL Metamyelocytes # (Man) (0) k/uL Myelocytes # (Manual) (0) k/uL Nucleated RBCs (0-0) /100 WBC D-Dimer (<0.60) mg/L FEU ABG pH 7.13 L* (7.35-7.45) ABG pCO2 62 H (35-45) mmHg ABG pO2 68 L (83-108) mmHg ABG HCO3 (21-25) mmol/L ABG O2 Saturation 87.9 L (94-97) % Sodium (137-145) mmol/L Potassium (3.5-5.1) mmol/L Chloride (98-107) mmol/L Carbon Dioxide (22-30) mmol/L BUN (7-17) mg/dL Creatinine (0.52-1.04) mg/dL Glucose (74-99) mg/dL POC Glucose (mg/dL) (70-110) mg/dL Calcium (8.4-10.2) mg/dL Delta Bilirubin (0.0-0.2) mg/dL Total Protein (6.3-8.2) g/dL Albumin (3.5-5.0) g/dL Procalcitonin 6.72 H (0.02-0.09) ng/mL Crossmatch See Detail 03/29/23 03/29/23 03/29/23 Range/Units 18:34 18:43 20:48 WBC (3.8-10.6) k/uL RBC (3.80-5.40) m/uL Hgb (11.4-16.0) gm/dL Hct (34.0-46.0) % MCV (80.0-100.0) fL Neutrophils # (Manual) (1.3-7.7) k/uL Lymphocytes # (Manual) (1.0-4.8) k/uL Metamyelocytes # (Man) (0) k/uL Myelocytes # (Manual) (0) k/uL Nucleated RBCs (0-0) /100 WBC D-Dimer (<0.60) mg/L FEU ABG pH 7.15 L* 7.20 L (7.35-7.45) ABG pCO2 55 H 47 H (35-45) mmHg ABG pO2 65 L 55 L* (83-108) mmHg ABG HCO3 19 L 19 L (21-25) mmol/L ABG O2 Saturation 88.8 L 84.8 L (94-97) % Sodium (137-145) mmol/L Potassium (3.5-5.1) mmol/L Chloride (98-107) mmol/L Carbon Dioxide (22-30) mmol/L BUN (7-17) mg/dL Creatinine (0.52-1.04) mg/dL Glucose (74-99) mg/dL POC Glucose (mg/dL) 197 H (70-110) mg/dL Calcium (8.4-10.2) mg/dL Delta Bilirubin (0.0-0.2) mg/dL Total Protein (6.3-8.2) g/dL Albumin (3.5-5.0) g/dL Procalcitonin (0.02-0.09) ng/mL Crossmatch 03/29/23 03/29/23 03/30/23 Range/Units 20:49 23:48 03:10 WBC 15.8 H (3.8-10.6) k/uL RBC 3.08 L (3.80-5.40) m/uL Hgb 10.0 L (11.4-16.0) gm/dL Hct 31.9 L (34.0-46.0) % MCV 103.7 H (80.0-100.0) fL Neutrophils # (Manual) 13.90 H (1.3-7.7) k/uL Lymphocytes # (Manual) 0.32 L (1.0-4.8) k/uL Metamyelocytes # (Man) 0.63 H (0) k/uL Myelocytes # (Manual) 0.32 H (0) k/uL Nucleated RBCs 1 H (0-0) /100 WBC D-Dimer (<0.60) mg/L FEU ABG pH (7.35-7.45) ABG pCO2 (35-45) mmHg ABG pO2 (83-108) mmHg ABG HCO3 (21-25) mmol/L ABG O2 Saturation (94-97) % Sodium (137-145) mmol/L Potassium 3.4 L (3.5-5.1) mmol/L Chloride (98-107) mmol/L Carbon Dioxide (22-30) mmol/L BUN (7-17) mg/dL Creatinine (0.52-1.04) mg/dL Glucose (74-99) mg/dL POC Glucose (mg/dL) 175 H (70-110) mg/dL Calcium (8.4-10.2) mg/dL Delta Bilirubin (0.0-0.2) mg/dL Total Protein (6.3-8.2) g/dL Albumin (3.5-5.0) g/dL Procalcitonin (0.02-0.09) ng/mL Crossmatch 03/30/23 03/30/23 03/30/23 Range/Units 03:10 05:41 06:03 WBC (3.8-10.6) k/uL RBC (3.80-5.40) m/uL Hgb (11.4-16.0) gm/dL Hct (34.0-46.0) % MCV (80.0-100.0) fL Neutrophils # (Manual) (1.3-7.7) k/uL Lymphocytes # (Manual) (1.0-4.8) k/uL Metamyelocytes # (Man) (0) k/uL Myelocytes # (Manual) (0) k/uL Nucleated RBCs (0-0) /100 WBC D-Dimer (<0.60) mg/L FEU ABG pH 7.22 L (7.35-7.45) ABG pCO2 (35-45) mmHg ABG pO2 123 H (83-108) mmHg ABG HCO3 18 L (21-25) mmol/L ABG O2 Saturation 98.2 H (94-97) % Sodium 135 L (137-145) mmol/L Potassium (3.5-5.1) mmol/L Chloride 108 H (98-107) mmol/L Carbon Dioxide 15 L (22-30) mmol/L BUN 19 H (7-17) mg/dL Creatinine 1.35 H (0.52-1.04) mg/dL Glucose 223 H (74-99) mg/dL POC Glucose (mg/dL) 233 H (70-110) mg/dL Calcium 7.4 L (8.4-10.2) mg/dL Delta Bilirubin (0.0-0.2) mg/dL Total Protein (6.3-8.2) g/dL Albumin (3.5-5.0) g/dL Procalcitonin (0.02-0.09) ng/mL Crossmatch Assessment and Plan Assessment: Acute hypoxemic respiratory failure, requiring intubation and mechanical ventilation, subsequent to repair of a dural tear, secondary to a large-volume gastric aspiration. Lumbar spondylosis and spondylolisthesis, status post postop day #9, T10 to pelvic decompression and fusion. Severe hypotension, likely secondary to sepsis, currently on norepinephrine and vasopressin. Mild metabolic acidosis. History of lumbar radiculopathy. Type 2 diabetes mellitus. Benign essential hypertension. History of hyperlipidemia. Plan: Plan dated 03/29/2023. I did speak to the surgeon about this patient. Patient will be given a bed in the intensive care unit. We switch the patient to volume assist control mode, rate 20, tidal volume 350, 100%, and PEEP of 10. Blood gas will be done 30 minutes after the switch to volume assist control. Additional changes and mechanical ventilation, will be made after the blood gas. The patient is started on norepinephrine, for blood pressure support. She's also given 2 L of lactated Ringer's. Anesthesiology was placing an arterial line, and I think they were planning to place a central line as well. Additional recommendations and suggestions are forthcoming. Labs, will be reviewed. Medications will be reviewed. X-rays have been reviewed. Prognosis is guarded. Plan dated 03/30/2023. The patient's currently on vasopressin and norepinephrine, for blood pressure support. In addition, the patient is on propofol for sedation, and Nimbex, for chemical paralysis. The patient's on vancomycin and Rocephin. Cultures are thus far negative or pending. Chest x-rays a bit improved, likely secondary to positive pressure ventilation. The FiO2 was dropped from 100%, down to 90%. We will order a flat plate of the abdomen. If okay, we will begin tube feedings. No additional recommendations are made. I did speak to the orthopedic surgeon. The patient's overall prognosis remains very guarded at this point. She is ob viously quite ill. Labs, x-rays, and medications are all reviewed. Time with Patient: Greater than 30
[2023-03-30 11:36] LABS: Glucose,Whole Blood 247 mg/dL (70-110)
[2023-03-30] MEDS: VANCOMYCIN 1,500 MG in SODIUM CHLORIDE 0.9% 500 ML 500 ML IVPB SCH (11:41)
[2023-03-30 12:03] LABS: Amorphous Sediment,Urine Moderate /hpf; Hyaline Casts,Urine 5 /lpf (0-2); Mucus,Urine Rare /hpf; RBC,Urine 6 /hpf (0-5); Squamous Epithelial Cell,Urine 2 /hpf (0-4); WBC,Urine 21 /hpf (0-5)
[2023-03-30] MEDS: NOREPINEPHRINE 32 MG in SODIUM CHLORIDE 0.9% 218 ML IV SCH (12:21)
[2023-03-30] MEDS: IOPAMIDOL CONTRAST (ORAL USE) VIAL PO PRN ×2 (12:32→13:28)
[2023-03-30 12:41] LABS: Appearance,Urine Turbid (Clear); Color,Urine Yellow
[2023-03-30 12:42] LABS: PH, Urine 5.5 (5.0-8.0); Specific Gravity,Urine >1.030 (1.001-1.035)
[2023-03-30 12:57] LABS: Bilirubin,Urine Negative (Negative); Blood,Urine Trace (Negative); Glucose,Urine (UA) Negative (Negative); Ketones,Urine Negative (Negative); Leukocyte Esterase,Urine Small (Negative); Nitrite,Urine Negative (Negative); Protein,Urine 1+ (Negative); Urobilinogen,Urine <2.0 mg/dL (<2.0)
--- NOTE | 2023-03-30 13:20 | P.PN ---
Subjective Progress Note Date: 03/30/23 CHIEF COMPLAINT: Back pain HISTORY OF PRESENT ILLNESS: Patient remains in the ICU and on mechanical venti lation. She is on vasopressors. She had 600 mL output through OG tube. She was not stable enough to undergo the computed tomography scan of the abdomen last night. Surgical service following and possible postoperative ileus. Afebrile. Mildly tachycardic. WBC elevated at 15.8 Hgb is 10 platelets 399. Creatinine 1.35 sodium is 135 potassium 3.9 abdominal x-ray pending Patient seen and examined with Dr. Mcmahon PHYSICAL EXAM: VITAL SIGNS: Reviewed. GENERAL: Well-developed in no acute distress. ABDOMEN: Soft. Nondistended. Nontender. NEUROLOGIC: Sedated and on mechanical dilation ASSESSMENT: 1. Possible Postop ileus. Abdominal distention with high gastric output 2. Status post T10 to pelvis decompression with fusion with drainage from surgical site status post irrigation and debridement 3. Possible aspiration pneumonia PLAN: -Computed tomography scan abdomen and pelvis with oral contrast due to later this afternoon -Continue ICU management -Continue supportive care Physician Traffic Enumerator note has been reviewed by physician. Signing provider agrees with the documented findings, assessment, and plan of care. Objective - Vital Signs Vital signs: Vital Signs Temp 99.6 F 03/30/23 12:00 Pulse 106 H 03/30/23 12:00 Resp 32 H 03/30/23 12:00 BP 128/70 03/29/23 14:52 Pulse Ox 94 L 03/30/23 12:00 FiO2 70 03/30/23 11:43 Intake & Output 03/29/23 03/30/23 03/30/23 18:59 06:59 18:59 Intake Total 2463.015 993.460 932.035 Output Total 550 865 135 Balance 1913.015 128.460 797.035 Weight 97 kg 97 kg Intake: IV 1650 470 120 Lactated Ringers 1,000 ml 220 120 @ 20 mls/hr IV .Q24H [facility] Rx#:[id number] Potassium Chloride 10 meq 200 In Water For Injection 1 100ml.bag @ 100 mls/hr IVPB Q1H [facility] Rx#: [id number] ceFAZolin 2 gm In Sodium 50 Chloride 0.9% 50 ml @ 100 mls/hr IVPB Q8H [facility] Rx#: [id number] Intake, IV Titration 813.015 463.460 812.035 Amount Cisatracurium 200 mg In 38.994 87.009 Sodium Chloride 0.9% 180 ml @ 2 MCG/KG/MIN 11.64 mls/hr IV .[id number] [facility] Rx #:[id number] Lactated Ringers 1,000 ml 20 @ 20 mls/hr IV .Q24H [facility] Rx#:[id number] Magnesium Sulfate-D5w Pmx 200 1 gm In Dextrose/Water 1 100ml.bag @ 100 mls/hr IVPB Q1H [facility] Rx#: [id number] Norepinephrine 32 mg In 109.847 75.026 Sodium Chloride 0.9% 218 ml @ 0.03 MCG/KG/MIN 1. 364 mls/hr IV .Q24H [facility] Rx#:[id number] Norepinephrine 8 mg In 43.015 54.084 Sodium Chloride 0.9% 250 ml @ 0.03 MCG/KG/MIN 5.66 mls/hr IV .Q24H [facility] Rx#: [id number] Vancomycin 1,500 mg In 500 500 Sodium Chloride 0.9% 500 ml 500 ml @ 167 mls/hr IVPB Q24H [facility] Rx#: [id number] ceFAZolin 2 gm In Sodium 50 Chloride 0.9% 50 ml @ 100 mls/hr IVPB Q8H [facility] Rx#: [id number] cefTRIAXone 2 gm In 50 Sodium Chloride 0.9% 50 ml @ 100 mls/hr IVPB Q12HR [facility] Rx#:[id number] propofoL 1,000 mg In 260.535 100 Empty Bag 1 bag @ 15 MCG/ KG/MIN 8.73 mls/hr IV . [id number] [facility] Rx#:[id number] Other 60 Output: Gastric Drainage 600 Urine 450 265 135 Estimated Blood Loss 100 Other: Voiding Method Indwelling Catheter Indwelling Catheter Indwelling Catheter ABP, PAP, CO, CI - Last Documented Arterial Blood Pressure 146/45 - Labs CBC & Chem 7: 03/30/23 03:10 03/30/23 03:10 Labs: Abnormal Lab Results - Last 24 Hours (Table) 03/29/23 03/29/23 03/29/23 Range/Units 13:57 14:24 15:19 WBC (3.8-10.6) k/uL RBC (3.80-5.40) m/uL Hgb (11.4-16.0) gm/dL Hct (34.0-46.0) % MCV (80.0-100.0) fL Neutrophils # (Manual) (1.3-7.7) k/uL Lymphocytes # (Manual) (1.0-4.8) k/uL Metamyelocytes # (Man) (0) k/uL Myelocytes # (Manual) (0) k/uL Nucleated RBCs (0-0) /100 WBC D-Dimer (<0.60) mg/L FEU ABG pH 7.14 L* (7.35-7.45) ABG pCO2 59 H (35-45) mmHg ABG pO2 53 L* (83-108) mmHg ABG HCO3 20 L (21-25) mmol/L ABG O2 Saturation 77.2 L (94-97) % Sodium (137-145) mmol/L Potassium (3.5-5.1) mmol/L Chloride (98-107) mmol/L Carbon Dioxide (22-30) mmol/L BUN (7-17) mg/dL Creatinine (0.52-1.04) mg/dL Glucose (74-99) mg/dL POC Glucose (mg/dL) 152 H 135 H (70-110) mg/dL Calcium (8.4-10.2) mg/dL Delta Bilirubin (0.0-0.2) mg/dL Total Protein (6.3-8.2) g/dL Albumin (3.5-5.0) g/dL Procalcitonin (0.02-0.09) ng/mL Crossmatch 03/29/23 03/29/23 03/29/23 Range/Units 15:20 15:20 15:20 WBC 1.6 L (3.8-10.6) k/uL RBC 2.87 L (3.80-5.40) m/uL Hgb 9.4 L (11.4-16.0) gm/dL Hct 29.4 L (34.0-46.0) % MCV 102.2 H (80.0-100.0) fL Neutrophils # (Manual) 0.90 L (1.3-7.7) k/uL Lymphocytes # (Manual) 0.45 L (1.0-4.8) k/uL Metamyelocytes # (Man) 0.06 H (0) k/uL Myelocytes # (Manual) (0) k/uL Nucleated RBCs 3 H (0-0) /100 WBC D-Dimer 27.06 H (<0.60) mg/L FEU ABG pH (7.35-7.45) ABG pCO2 (35-45) mmHg ABG pO2 (83-108) mmHg ABG HCO3 (21-25) mmol/L ABG O2 Saturation (94-97) % Sodium (137-145) mmol/L Potassium 3.2 L (3.5-5.1) mmol/L Chloride 108 H (98-107) mmol/L Carbon Dioxide (22-30) mmol/L BUN (7-17) mg/dL Creatinine 1.08 H (0.52-1.04) mg/dL Glucose 140 H (74-99) mg/dL POC Glucose (mg/dL) (70-110) mg/dL Calcium 7.1 L (8.4-10.2) mg/dL Delta Bilirubin 0.6 H (0.0-0.2) mg/dL Total Protein 3.9 L (6.3-8.2) g/dL Albumin 2.0 L (3.5-5.0) g/dL Procalcitonin (0.02-0.09) ng/mL Crossmatch 03/29/23 03/29/23 03/29/23 Range/Units 15:20 15:20 15:55 WBC (3.8-10.6) k/uL RBC (3.80-5.40) m/uL Hgb (11.4-16.0) gm/dL Hct (34.0-46.0) % MCV (80.0-100.0) fL Neutrophils # (Manual) (1.3-7.7) k/uL Lymphocytes # (Manual) (1.0-4.8) k/uL Metamyelocytes # (Man) (0) k/uL Myelocytes # (Manual) (0) k/uL Nucleated RBCs (0-0) /100 WBC D-Dimer (<0.60) mg/L FEU ABG pH 7.13 L* (7.35-7.45) ABG pCO2 62 H (35-45) mmHg ABG pO2 68 L (83-108) mmHg ABG HCO3 (21-25) mmol/L ABG O2 Saturation 87.9 L (94-97) % Sodium (137-145) mmol/L Potassium (3.5-5.1) mmol/L Chloride (98-107) mmol/L Carbon Dioxide (22-30) mmol/L BUN (7-17) mg/dL Creatinine (0.52-1.04) mg/dL Glucose (74-99) mg/dL POC Glucose (mg/dL) (70-110) mg/dL Calcium (8.4-10.2) mg/dL Delta Bilirubin (0.0-0.2) mg/dL Total Protein (6.3-8.2) g/dL Albumin (3.5-5.0) g/dL Procalcitonin 6.72 H (0.02-0.09) ng/mL Crossmatch See Detail 03/29/23 03/29/23 03/29/23 Range/Units 18:34 18:43 20:48 WBC (3.8-10.6) k/uL RBC (3.80-5.40) m/uL Hgb (11.4-16.0) gm/dL Hct (34.0-46.0) % MCV (80.0-100.0) fL Neutrophils # (Manual) (1.3-7.7) k/uL Lymphocytes # (Manual) (1.0-4.8) k/uL Metamyelocytes # (Man) (0) k/uL Myelocytes # (Manual) (0) k/uL Nucleated RBCs (0-0) /100 WBC D-Dimer (<0.60) mg/L FEU ABG pH 7.15 L* 7.20 L (7.35-7.45) ABG pCO2 55 H 47 H (35-45) mmHg ABG pO2 65 L 55 L* (83-108) mmHg ABG HCO3 19 L 19 L (21-25) mmol/L ABG O2 Saturation 88.8 L 84.8 L (94-97) % Sodium (137-145) mmol/L Potassium (3.5-5.1) mmol/L Chloride (98-107) mmol/L Carbon Dioxide (22-30) mmol/L BUN (7-17) mg/dL Creatinine (0.52-1.04) mg/dL Glucose (74-99) mg/dL POC Glucose (mg/dL) 197 H (70-110) mg/dL Calcium (8.4-10.2) mg/dL Delta Bilirubin (0.0-0.2) mg/dL Total Protein (6.3-8.2) g/dL Albumin (3.5-5.0) g/dL Procalcitonin (0.02-0.09) ng/mL Crossmatch 03/29/23 03/29/23 03/30/23 Range/Units 20:49 23:48 03:10 WBC 15.8 H (3.8-10.6) k/uL RBC 3.08 L (3.80-5.40) m/uL Hgb 10.0 L (11.4-16.0) gm/dL Hct 31.9 L (34.0-46.0) % MCV 103.7 H (80.0-100.0) fL Neutrophils # (Manual) 13.90 H (1.3-7.7) k/uL Lymphocytes # (Manual) 0.32 L (1.0-4.8) k/uL Metamyelocytes # (Man) 0.63 H (0) k/uL Myelocytes # (Manual) 0.32 H (0) k/uL Nucleated RBCs 1 H (0-0) /100 WBC D-Dimer (<0.60) mg/L FEU ABG pH (7.35-7.45) ABG pCO2 (35-45) mmHg ABG pO2 (83-108) mmHg ABG HCO3 (21-25) mmol/L ABG O2 Saturation (94-97) % Sodium (137-145) mmol/L Potassium 3.4 L (3.5-5.1) mmol/L Chloride (98-107) mmol/L Carbon Dioxide (22-30) mmol/L BUN (7-17) mg/dL Creatinine (0.52-1.04) mg/dL Glucose (74-99) mg/dL POC Glucose (mg/dL) 175 H (70-110) mg/dL Calcium (8.4-10.2) mg/dL Delta Bilirubin (0.0-0.2) mg/dL Total Protein (6.3-8.2) g/dL Albumin (3.5-5.0) g/dL Procalcitonin (0.02-0.09) ng/mL Crossmatch 03/30/23 03/30/23 03/30/23 Range/Units 03:10 05:41 06:03 WBC (3.8-10.6) k/uL RBC (3.80-5.40) m/uL Hgb (11.4-16.0) gm/dL Hct (34.0-46.0) % MCV (80.0-100.0) fL Neutrophils # (Manual) (1.3-7.7) k/uL Lymphocytes # (Manual) (1.0-4.8) k/uL Metamyelocytes # (Man) (0) k/uL Myelocytes # (Manual) (0) k/uL Nucleated RBCs (0-0) /100 WBC D-Dimer (<0.60) mg/L FEU ABG pH 7.22 L (7.35-7.45) ABG pCO2 (35-45) mmHg ABG pO2 123 H (83-108) mmHg ABG HCO3 18 L (21-25) mmol/L ABG O2 Saturation 98.2 H (94-97) % Sodium 135 L (137-145) mmol/L Potassium (3.5-5.1) mmol/L Chloride 108 H (98-107) mmol/L Carbon Dioxide 15 L (22-30) mmol/L BUN 19 H (7-17) mg/dL Creatinine 1.35 H (0.52-1.04) mg/dL Glucose 223 H (74-99) mg/dL POC Glucose (mg/dL) 233 H (70-110) mg/dL Calcium 7.4 L (8.4-10.2) mg/dL Delta Bilirubin (0.0-0.2) mg/dL Total Protein (6.3-8.2) g/dL Albumin (3.5-5.0) g/dL Procalcitonin (0.02-0.09) ng/mL Crossmatch 03/30/23 Range/Units 11:35 WBC (3.8-10.6) k/uL RBC (3.80-5.40) m/uL Hgb (11.4-16.0) gm/dL Hct (34.0-46.0) % MCV (80.0-100.0) fL Neutrophils # (Manual) (1.3-7.7) k/uL Lymphocytes # (Manual) (1.0-4.8) k/uL Metamyelocytes # (Man) (0) k/uL Myelocytes # (Manual) (0) k/uL Nucleated RBCs (0-0) /100 WBC D-Dimer (<0.60) mg/L FEU ABG pH (7.35-7.45) ABG pCO2 (35-45) mmHg ABG pO2 (83-108) mmHg ABG HCO3 (21-25) mmol/L ABG O2 Saturation (94-97) % Sodium (137-145) mmol/L Potassium (3.5-5.1) mmol/L Chloride (98-107) mmol/L Carbon Dioxide (22-30) mmol/L BUN (7-17) mg/dL Creatinine (0.52-1.04) mg/dL Glucose (74-99) mg/dL POC Glucose (mg/dL) 247 H (70-110) mg/dL Calcium (8.4-10.2) mg/dL Delta Bilirubin (0.0-0.2) mg/dL Total Protein (6.3-8.2) g/dL Albumin (3.5-5.0) g/dL Procalcitonin (0.02-0.09) ng/mL Crossmatch Microbiology - Last 24 Hours (Table) 03/29/23 15:00 Gram Stain - Preliminary Sputum
--- NOTE | 2023-03-30 13:45 | XR ---
EXAMINATION TYPE: XR abdomen 1V DATE OF EXAM: 03/30/2023 10:43 AM INDICATION: Patient age:Female; 73 years old; Reason for study: ileus; COMPARISON: 03/21/2023, CT 03/22/2023 TECHNIQUE: One radiographic view of the abdomen was obtained. FINDINGS: Gaseous acute in appropriate position. Extensive surgical change at the spine. Hardware javier ears intact. Dilation of bowel in the left lower quadrant up to 7.3 cm. Likely representing colon. Ri ght hip arthroplasty changes hardware appears intact. No evidence of acute fracture. Skin trinh are also present over midline. IMPRESSION: Dilation of multiple loops of bowel which could represent ileus the setting of recent surgery. Hardwa re changes to the spine and right hip appear intact.
--- NOTE | 2023-03-30 14:13 | P.PN ---
Subjective Progress Note Date: 03/30/23 Pts pressor req increased to needing vasopressin and 0.24 levophed. Saturating better on 90% FiO2 , 12 PEEP. CVP is 13-14. Gen: awake, alert HEENT: normocephalic, atraumatic, good hearing acuity, moist mucous membranes Resp: good air exchange, breathing comfortably with no accessory muscle use CVS: good distal perfusion x 4, GI: soft, NTTP, ND : no SPT, no CVAT, archuleta catheter is present MSK: no pitting edema, no clubbing Neuro: non-focal, moving all extremities Psych: cooperative, euthymic mood Hospital course: Patient is a 72-year-old female with dyslipidemia, hypertension, [id number] pendent diabetes mellitus type 2 who presented for elective T10 to pelvis decompression and fusion. Assessment: 72-year-old female status post T10 to pelvis decompression with fusion Increase drainage from surgical incision s/p CSF repair on 03/29 - Orthospine note reviewed. Monitoring drainage, abdominal binder, and fioricet. Shock, Septic Multi-focal pneumonia Ventilator Dependent Acute Hypoxemic and Hypercarbic Respiratory Failure -Continue levophed, vasopressin -Started vancomycin, ceftriaxone to cover for meningitis/sepsis secondary to pneumonia or meningitis -continue nimbex, propofol -PC elevated at 6.72 Acute blood loss anemia -Anticipated outcome of surgery -Follow CBC -Transfuse 1 unit of packed red blood cells -Ferrous sulfate 325 mg daily- once daily regiment has showen to be as effective as more frequent dosing in improving iron stores, but is associated with less si de effects. Diabetes mellitus type 2 -Hold metformin -Sliding-scale insulin -Follow blood sugars Dyslipidemia -Gemfibrozil Hypertension -Lisinopril 30 mg daily, continue to hold her Lisinopril/hydrochlorothiazide - follow BP DVT prophylaxis: Heparin Thank you for allowing us to participate in the care of this pleasant patient. Do not hesitate to contact us with questions. Someone can be reached from the [facility] hospitalist group all hours of the day at [phone] or via perfect serve. Objective - Vital Signs Vital signs: Vital Signs Temp 99.6 F 03/30/23 12:00 Pulse 106 H 03/30/23 12:00 Resp 32 H 03/30/23 12:00 BP 128/70 03/29/23 14:52 Pulse Ox 94 L 07/27/23 12:00 FiO2 70 03/30/23 11:43 Intake & Output 03/29/23 03/30/23 03/30/23 18:59 06:59 18:59 Intake Total 2463.015 993.460 946.949 Output Total 550 865 135 Balance 1913.015 128.460 811.949 Weight 97 kg 97 kg Intake: IV 1650 470 120 Lactated Ringers 1,000 ml 220 120 @ 20 mls/hr IV .Q24H [facility] Rx#:[id number] Potassium Chloride 10 meq 200 In Water For Injection 1 100ml.bag @ 100 mls/hr IVPB Q1H [facility] Rx#: [id number] ceFAZolin 2 gm In Sodium 50 Chloride 0.9% 50 ml @ 100 mls/hr IVPB Q8H [facility] Rx#: [id number] Intake, IV Titration 813.015 463.460 826.949 Amount Cisatracurium 200 mg In 38.994 87.009 Sodium Chloride 0.9% 180 ml @ 2 MCG/KG/MIN 11.64 mls/hr IV .[id number] [facility] Rx #:[id number] Lactated Ringers 1,000 ml 20 @ 20 mls/hr IV .Q24H [facility] Rx#:[id number] Magnesium Sulfate-D5w Pmx 200 1 gm In Dextrose/Water 1 100ml.bag @ 100 mls/hr IVPB Q1H [facility] Rx#: [id number] Norepinephrine 32 mg In 109.847 89.940 Sodium Chloride 0.9% 218 ml @ 0.03 MCG/KG/MIN 1. 364 mls/hr IV .Q24H [facility] Rx#:[id number] Norepinephrine 8 mg In 43.015 54.084 Sodium Chloride 0.9% 250 ml @ 0.03 MCG/KG/MIN 5.66 mls/hr IV .Q24H [facility] Rx#: [id number] Vancomycin 1,500 mg In 500 500 Sodium Chloride 0.9% 500 ml 500 ml @ 167 mls/hr IVPB Q24H [facility] Rx#: [id number] ceFAZolin 2 gm In Sodium 50 Chloride 0.9% 50 ml @ 100 mls/hr IVPB Q8H [facility] Rx#: [id number] cefTRIAXone 2 gm In 50 Sodium Chloride 0.9% 50 ml @ 100 mls/hr IVPB Q12HR [facility] Rx#:[id number] propofoL 1,000 mg In 260.535 100 Empty Bag 1 bag @ 15 MCG/ KG/MIN 8.73 mls/hr IV . [id number] [facility] Rx#:[id number] Other 60 Output: Gastric Drainage 600 Urine 450 265 135 Estimated Blood Loss 100 Other: Voiding Method Indwelling Catheter Indwelling Catheter Indwelling Catheter ABP, PAP, CO, CI - Last Documented Arterial Blood Pressure 146/45 - Labs CBC & Chem 7: 03/30/23 03:10 03/30/23 03:10 Labs: Abnormal Lab Results - Last 24 Hours (Table) 03/29/23 03/29/23 03/29/23 Range/Units 13:57 14:24 15:19 WBC (3.8-10.6) k/uL RBC (3.80-5.40) m/uL Hgb (11.4-16.0) gm/dL Hct (34.0-46.0) % MCV (80.0-100.0) fL Neutrophils # (Manual) (1.3-7.7) k/uL Lymphocytes # (Manual) (1.0-4.8) k/uL Metamyelocytes # (Man) (0) k/uL Myelocytes # (Manual) (0) k/uL Nucleated RBCs (0-0) /100 WBC D-Dimer (<0.60) mg/L FEU ABG pH 7.14 L* (7.35-7.45) ABG pCO2 59 H (35-45) mmHg ABG pO2 53 L* (83-108) mmHg ABG HCO3 20 L (21-25) mmol/L ABG O2 Saturation 77.2 L (94-97) % Sodium (137-145) mmol/L Potassium (3.5-5.1) mmol/L Chloride (98-107) mmol/L Carbon Dioxide (22-30) mmol/L BUN (7-17) mg/dL Creatinine (0.52-1.04) mg/dL Glucose (74-99) mg/dL POC Glucose (mg/dL) 152 H 135 H (70-110) mg/dL Calcium (8.4-10.2) mg/dL Delta Bilirubin (0.0-0.2) mg/dL Total Protein (6.3-8.2) g/dL Albumin (3.5-5.0) g/dL Procalcitonin (0.02-0.09) ng/mL Urine Appearance (Clear) Urine RBC (0-5) /hpf Urine WBC (0-5) /hpf Amorphous Sediment (None) /hpf Hyaline Casts (0-2) /lpf Urine Mucus (None) /hpf Crossmatch 03/29/23 03/29/23 03/29/23 Range/Units 15:20 15:20 15:20 WBC 1.6 L (3.8-10.6) k/uL RBC 2.87 L (3.80-5.40) m/uL Hgb 9.4 L (11.4-16.0) gm/dL Hct 29.4 L (34.0-46.0) % MCV 102.2 H (80.0-100.0) fL Neutrophils # (Manual) 0.90 L (1.3-7.7) k/uL Lymphocytes # (Manual) 0.45 L (1.0-4.8) k/uL Metamyelocytes # (Man) 0.06 H (0) k/uL Myelocytes # (Manual) (0) k/uL Nucleated RBCs 3 H (0-0) /100 WBC D-Dimer 27.06 H (<0.60) mg/L FEU ABG pH (7.35-7.45) ABG pCO2 (35-45) mmHg ABG pO2 (83-108) mmHg ABG HCO3 (21-25) mmol/L ABG O2 Saturation (94-97) % Sodium (137-145) mmol/L Potassium 3.2 L (3.5-5.1) mmol/L Chloride 108 H (98-107) mmol/L Carbon Dioxide (22-30) mmol/L BUN (7-17) mg/dL Creatinine 1.08 H (0.52-1.04) mg/dL Glucose 140 H (74-99) mg/dL POC Glucose (mg/dL) (70-110) mg/dL Calcium 7.1 L (8.4-10.2) mg/dL Delta Bilirubin 0.6 H (0.0-0.2) mg/dL Total Protein 3.9 L (6.3-8.2) g/dL Albumin 2.0 L (3.5-5.0) g/dL Procalcitonin (0.02-0.09) ng/mL Urine Appearance (Clear) Urine RBC (0-5) /hpf Urine WBC (0-5) /hpf Amorphous Sediment (None) /hpf Hyaline Casts (0-2) /lpf Urine Mucus (None) /hpf Crossmatch 03/29/23 03/29/23 03/29/23 Range/Units 15:20 15:20 15:55 WBC (3.8-10.6) k/uL RBC (3.80-5.40) m/uL Hgb (11.4-16.0) gm/dL Hct (34.0-46.0) % MCV (80.0-100.0) fL Neutrophils # (Manual) (1.3-7.7) k/uL Lymphocytes # (Manual) (1.0-4.8) k/uL Metamyelocytes # (Man) (0) k/uL Myelocytes # (Manual) (0) k/uL Nucleated RBCs (0-0) /100 WBC D-Dimer (<0.60) mg/L FEU ABG pH 7.13 L* (7.35-7.45) ABG pCO2 62 H (35-45) mmHg ABG pO2 68 L (83-108) mmHg ABG HCO3 (21-25) mmol/L ABG O2 Saturation 87.9 L (94-97) % Sodium (137-145) mmol/L Potassium (3.5-5.1) mmol/L Chloride (98-107) mmol/L Carbon Dioxide (22-30) mmol/L BUN (7-17) mg/dL Creatinine (0.52-1.04) mg/dL Glucose (74-99) mg/dL POC Glucose (mg/dL) (70-110) mg/dL Calcium (8.4-10.2) mg/dL Delta Bilirubin (0.0-0.2) mg/dL Total Protein (6.3-8.2) g/dL Albumin (3.5-5.0) g/dL Procalcitonin 6.72 H (0.02-0.09) ng/mL Urine Appearance (Clear) Urine RBC (0-5) /hpf Urine WBC (0-5) /hpf Amorphous Sediment (None) /hpf Hyaline Casts (0-2) /lpf Urine Mucus (None) /hpf Crossmatch See Detail 03/29/23 03/29/23 03/29/23 Range/Units 18:34 18:43 20:48 WBC (3.8-10.6) k/uL RBC (3.80-5.40) m/uL Hgb (11.4-16.0) gm/dL Hct (34.0-46.0) % MCV (80.0-100.0) fL Neutrophils # (Manual) (1.3-7.7) k/uL Lymphocytes # (Manual) (1.0-4.8) k/uL Metamyelocytes # (Man) (0) k/uL Myelocytes # (Manual) (0) k/uL Nucleated RBCs (0-0) /100 WBC D-Dimer (<0.60) mg/L FEU ABG pH 7.15 L* 7.20 L (7.35-7.45) ABG pCO2 55 H 47 H (35-45) mmHg ABG pO2 65 L 55 L* (83-108) mmHg ABG HCO3 19 L 19 L (21-25) mmol/L ABG O2 Saturation 88.8 L 84.8 L (94-97) % Sodium (137-145) mmol/L Potassium (3.5-5.1) mmol/L Chloride (98-107) mmol/L Carbon Dioxide (22-30) mmol/L BUN (7-17) mg/dL Creatinine (0.52-1.04) mg/dL Glucose (74-99) mg/dL POC Glucose (mg/dL) 197 H (70-110) mg/dL Calcium (8.4-10.2) mg/dL Delta Bilirubin (0.0-0.2) mg/dL Total Protein (6.3-8.2) g/dL Albumin (3.5-5.0) g/dL Procalcitonin (0.02-0.09) ng/mL Urine Appearance (Clear) Urine RBC (0-5) /hpf Urine WBC (0-5) /hpf Amorphous Sediment (None) /hpf Hyaline Casts (0-2) /lpf Urine Mucus (None) /hpf Crossmatch 03/29/23 03/29/23 03/30/23 Range/Units 20:49 23:48 03:10 WBC 15.8 H (3.8-10.6) k/uL RBC 3.08 L (3.80-5.40) m/uL Hgb 10.0 L (11.4-16.0) gm/dL Hct 31.9 L (34.0-46.0) % MCV 103.7 H (80.0-100.0) fL Neutrophils # (Manual) 13.90 H (1.3-7.7) k/uL Lymphocytes # (Manual) 0.32 L (1.0-4.8) k/uL Metamyelocytes # (Man) 0.63 H (0) k/uL Myelocytes # (Manual) 0.32 H (0) k/uL Nucleated RBCs 1 H (0-0) /100 WBC D-Dimer (<0.60) mg/L FEU ABG pH (7.35-7.45) ABG pCO2 (35-45) mmHg ABG pO2 (83-108) mmHg ABG HCO3 (21-25) mmol/L ABG O2 Saturation (94-97) % Sodium (137-145) mmol/L Potassium 3.4 L (3.5-5.1) mmol/L Chloride (98-107) mmol/L Carbon Dioxide (22-30) mmol/L BUN (7-17) mg/dL Creatinine (0.52-1.04) mg/dL Glucose (74-99) mg/dL POC Glucose (mg/dL) 175 H (70-110) mg/dL Calcium (8.4-10.2) mg/dL Delta Bilirubin (0.0-0.2) mg/dL Total Protein (6.3-8.2) g/dL Albumin (3.5-5.0) g/dL Procalcitonin (0.02-0.09) ng/mL Urine Appearance (Clear) Urine RBC (0-5) /hpf Urine WBC (0-5) /hpf Amorphous Sediment (None) /hpf Hyaline Casts (0-2) /lpf Urine Mucus (None) /hpf Crossmatch 03/30/23 03/30/23 03/30/23 Range/Units 03:10 05:41 06:03 WBC (3.8-10.6) k/uL RBC (3.80-5.40) m/uL Hgb (11.4-16.0) gm/dL Hct (34.0-46.0) % MCV (80.0-100.0) fL Neutrophils # (Manual) (1.3-7.7) k/uL Lymphocytes # (Manual) (1.0-4.8) k/uL Metamyelocytes # (Man) (0) k/uL Myelocytes # (Manual) (0) k/uL Nucleated RBCs (0-0) /100 WBC D-Dimer (<0.60) mg/L FEU ABG pH 7.22 L (7.35-7.45) ABG pCO2 (35-45) mmHg ABG pO2 123 H (83-108) mmHg ABG HCO3 18 L (21-25) mmol/L ABG O2 Saturation 98.2 H (94-97) % Sodium 135 L (137-145) mmol/L Potassium (3.5-5.1) mmol/L Chloride 108 H (98-107) mmol/L Carbon Dioxide 15 L (22-30) mmol/L BUN 19 H (7-17) mg/dL Creatinine 1.35 H (0.52-1.04) mg/dL Glucose 223 H (74-99) mg/dL POC Glucose (mg/dL) 233 H (70-110) mg/dL Calcium 7.4 L (8.4-10.2) mg/dL Delta Bilirubin (0.0-0.2) mg/dL Total Protein (6.3-8.2) g/dL Albumin (3.5-5.0) g/dL Procalcitonin (0.02-0.09) ng/mL Urine Appearance (Clear) Urine RBC (0-5) /hpf Urine WBC (0-5) /hpf Amorphous Sediment (None) /hpf Hyaline Casts (0-2) /lpf Urine Mucus (None) /hpf Crossmatch 03/30/23 03/30/23 Range/Units 11:27 11:35 WBC (3.8-10.6) k/uL RBC (3.80-5.40) m/uL Hgb (11.4-16.0) gm/dL Hct (34.0-46.0) % MCV (80.0-100.0) fL Neutrophils # (Manual) (1.3-7.7) k/uL Lymphocytes # (Manual) (1.0-4.8) k/uL Metamyelocytes # (Man) (0) k/uL Myelocytes # (Manual) (0) k/uL Nucleated RBCs (0-0) /100 WBC D-Dimer (<0.60) mg/L FEU ABG pH (7.35-7.45) ABG pCO2 (35-45) mmHg ABG pO2 (83-108) mmHg ABG HCO3 (21-25) mmol/L ABG O2 Saturation (94-97) % Sodium (137-145) mmol/L Potassium (3.5-5.1) mmol/L Chloride (98-107) mmol/L Carbon Dioxide (22-30) mmol/L BUN (7-17) mg/dL Creatinine (0.52-1.04) mg/dL Glucose (74-99) mg/dL POC Glucose (mg/dL) 247 H (70-110) mg/dL Calcium (8.4-10.2) mg/dL Delta Bilirubin (0.0-0.2) mg/dL Total Protein (6.3-8.2) g/dL Albumin (3.5-5.0) g/dL Procalcitonin (0.02-0.09) ng/mL Urine Appearance Turbid H (Clear) Urine RBC 6 H (0-5) /hpf Urine WBC 21 H (0-5) /hpf Amorphous Sediment Moderate H (None) /hpf Hyaline Casts 5 H (0-2) /lpf Urine Mucus Rare H (None) /hpf Crossmatch Microbiology - Last 24 Hours (Table) 03/29/23 15:00 Gram Stain - Preliminary Sputum Sputum Culture - Preliminary Gram Neg Bacilli
--- NOTE | 2023-03-30 14:26 | CT ---
EXAMINATION TYPE: CT abdomen pelvis wo con CT DLP: 1475.2 mGycm, Automated exposure control for dose reduction was used. DATE OF EXAM: 03/30/2023 2:18 PM COMPARISON: CT abdomen pelvis most recent from CLINICAL INDICATION:Female, 73 years old with history of abdominal distention, high output through OG tube; Abdominal distention TECHNIQUE: Axial CT of the abdomen and pelvis. Sagittal and coronal reformats were created on a [employer] workstation. Contrast used: mL of , (none if empty) Oral contrast used: with Oral Contrast (none if empty) FINDINGS: LOWER CHEST: Bibasilar consolidation changes within the lower lobes right middle lobe and lingula. ABDOMEN LIVER: Unremarkable GALLBLADDER AND BILE DUCTS: The gallbladder surgically absent PANCREAS: Unremarkable. SPLEEN: Unremarkable. ADRENAL GLANDS: Unremarkable. KIDNEYS AND URETERS: No evidence of hydronephrosis or renal calculus. The ureters are unremarkable. PELVIS BLADDER: Nondistended with Garnett catheter in place. REPRODUCTIVE: Unremarkable. ABDOMEN & PELVIS STOMACH AND BOWEL: Stomach is distended with oral contrast. No evidence of bowel obstruction. Nasogas tric tube terminates in appropriate position. Large stool burden within the cecum and ascending colon with gaseous dilation through the transverse colon. The descending colon sigmoid colon and rectum ar e relatively nondistended. PERITONEUM/RETROPERITONEUM: No evidence of pneumoperitoneum. Trace free fluid in the abdomen. VASCULATURE: No evidence of aortic aneurysm. MUSCULOSKELETAL: No acute osseous abnormalities, right hip arthroplasty changes. Hardware appears int act. Extensive surgical changes spine with streak artifact. Pneumorachis and subjacent gas throughout the surgical bed. LYMPH NODES: No gross evidence for lymphadenopathy. SOFT TISSUE/ABDOMINAL WALL: Postsurgical changes to the skin and back. Anasarca of the soft tissues. IMPRESSION: 1. Bilateral lower lung airspace opacities and consolidation, correlate for aspiration versus infect ious/inflammatory pneumonia. Atelectasis also be considered in the differential although felt to be l ess likely. 2. Post surgical changes of the spine with pneumorachis, subcutaneous air and hardware throughout th e spine. Hardware appears intact. 3. Large stool burden within the ascending colon and cecum. Gaseous dilation extending over the jansen sverse colon. There descending colon and sigmoid colon and rectum are relatively nondistended. 4. Distended gastric lumen with nasogastric tube in appropriate position. No evidence for small nicolette l obstruction.
[2023-03-30] MEDS: CISATRACURIUM 200 MG in SODIUM CHLORIDE 0.9% 180 ML IV SCH (15:27)
--- NOTE | 2023-03-30 15:39 | P.PN ---
Progress Note - Text Progress Note Date: 03/30/23 Spoke with Medicine. Placing consult for ID due to Gram (-) in sputum in picture of sepsis, shock etc. Cont with supportive care. Attempting to update family.
[2023-03-30] MEDS ORDERED: bisacodyL 10 MG SUPP RECTAL STA (15:51)
[2023-03-30 16:04] LABS: African American GFR (CKD) 38 (>60 ml/min/1.73 sqM); Non-African American GFR(CKD) 33 (>60 ml/min/1.73 sqM)
[2023-03-30] MEDS: LACTATED RINGERS 1,000 ML IV SCH (16:16)
[2023-03-30] MEDS: VASOPRESSIN 60 UNIT in SODIUM CHLORIDE 0.9% 150 ML IV SCH (16:30)
[2023-03-30 18:13] LABS: Glucose,Whole Blood 200 mg/dL (70-110)
[2023-03-30] MEDS: AMPICILLIN-SULBACTAM 3 GM in SODIUM CHLORIDE 0.9% 100 ML IVPB SCH (18:46)
[2023-03-30] MEDS ORDERED: DEXTROSE 5% IN WATER 100 ML with AMIODARONE 150 MG IV ONE (23:08)
[2023-03-30] MEDS ORDERED: AMIODARONE 360 MG in DEXTROSE 5% IN WATER 200 ML IV ONE ×2 (23:30)
[2023-03-30 23:44] LABS: Glucose,Whole Blood 179 mg/dL (70-110)
[2023-03-31] MEDS: ARTIFICIAL TEARS-HYPROMELLOSE DROPS 15 ML BTL BOTH EYES SCH ×6 (00:04→22:03)
[2023-03-31] MEDS: INSULIN ASPART (NovoLOG) 100 UNIT/ML VIAL SQ SCH ×4 (00:04→17:13)
[2023-03-31] MEDS: AMPICILLIN-SULBACTAM 3 GM in SODIUM CHLORIDE 0.9% 100 ML IVPB SCH ×2 (00:05→06:38)
[2023-03-31] MEDS: IPRATROPIUM-ALBUTEROL 3 ML NEB INHALATION SCH ×6 (03:55→23:14)
[2023-03-31] MEDS: CISATRACURIUM 200 MG in SODIUM CHLORIDE 0.9% 180 ML IV SCH ×2 (04:22→21:41)
[2023-03-31] MEDS: AMIODARONE 450 MG in DEXTROSE 5% IN WATER 250 ML IV SCH ×4 (04:23→22:02)
[2023-03-31 04:51] LABS: African American GFR (CKD) 37 (>60 ml/min/1.73 sqM); Anion Gap 9 mmol/L; Blood Urea Nitrogen 24 mg/dL (7-17); Calcium 6.9 mg/dL (8.4-10.2); Carbon Dioxide 17 mmol/L (22-30); Chloride 109 mmol/L (98-107); Glucose 178 mg/dL (74-99); Non-African American GFR(CKD) 33 (>60 ml/min/1.73 sqM); Potassium 3.8 mmol/L (3.5-5.1); Sodium 135 mmol/L (137-145)
[2023-03-31 05:32] LABS: Glucose,Whole Blood 193 mg/dL (70-110)
[2023-03-31 05:50] LABS: HCT 26.5 % (34.0-46.0); HGB 8.6 gm/dL (11.4-16.0); Hypochromasia Moderate; MCH 33.6 pg (25.0-35.0); MCHC 32.6 g/dL (31.0-37.0); Macrocytosis Slight; Mean Platelet Volume 8.7; Platelet Count 283 k/uL (150-450); Poikilocytosis Slight; RBC 2.57 m/uL (3.80-5.40); WBC 20.4 k/uL (3.8-10.6)
[2023-03-31] MEDS ORDERED: POTASSIUM BICARBONATE/CIT AC 20 MEQ TABLET.EFF NG-TUBE SCH (06:00)
[2023-03-31 06:03] LABS: ABG Base Excess -9.2 mmol/L; ABG HCO3 18 mmol/L (21-25); ABG Oxygen Saturation 99.1 % (94-97); ABG PCO2 40 mmHg (35-45); ABG PH 7.26 (7.35-7.45); ABG PO2 172 mmHg (83-108); ABG TCO2 19 mmol/L (19-24); Allen Test Performed? Yes
[2023-03-31 06:48] LABS: Anisocytosis (M) Present; Band Neutrophils % 25 %; Eosinophils # (M) 0.61 k/uL (0-0.7); Lymphocytes # (M) 1.43 k/uL (1.0-4.8); Metamyelocytes # (M) 0.82 k/uL (0); Metamyelocytes % 4 %; Myelocytes # (M) 0.41 k/uL (0); Myelocytes % 2 %; Neutrophils % (M) 59 %; Nucleated Red Blood Cells 0 /100 WBC (0-0); Total Cells Counted 100; Toxic Vacuolation Present
--- NOTE | 2023-03-31 07:03 | XR ---
EXAMINATION TYPE: XR chest 1V portable DATE OF EXAM: 03/31/2023 HISTORY: Shortness of breath. COMPARISON: 03/30/2023 TECHNIQUE: Single view of the chest is submitted. FINDINGS: NG tube and right IJ central venous line unchanged in position. Diffuse bilateral airspace infiltrates persist with improvement noted within the left midlung zone le ft lower lobe. The heart is stable. Hilar and mediastinal structures are within normal limits. Degenerative changes are seen of the dorsal spine. IMPRESSION: 1. Diffuse bilateral airspace infiltrates persist with improvement noted within the left midlung zon e left lower lobe.
--- NOTE | 2023-03-31 07:27 | P.PN ---
Subjective Progress Note Date: 03/31/23 Principal diagnosis: 1. L1-S1 spondylosis with stenosis 2. L1-S1 spondylolisthesis 3. Lower extremity radiculopathy 4. Low back pain 5. Lower extremity weakness Patient seen and examined this morning. Patient is currently sedated on mechanical ventilation. Current vitals BP 121/50, HR 123, Resp 32, O2 sat 98%. Vent settings currently remain at FiO2 60%, PEEP 15. CXR this morning does show improvement to the left mid/lower lung. Patient is currently in Afib RVR, if possible Ortho would like to wait until morning of 04/01/23 to start anticoa gulant if possible. Patient currently is on vasopressin, levophed, and amiodarone. Sputum culture resulted in gram neg bacilli, ID consulted. CT of the abd/pelvis demonstrates large stool burden in the descending colon, no evidence of small bowel obstruction. Dulcolax suppository was provided with no result. Surgical dressing has been changed this morning, Incision is well approximated with trinh and sutures intact. No active drainage noted. Clean and dry dressing applied. There is +1 non-pitting edema noted to bilateral hands and lower extremities. SCDs and Prafo boots are present to lower extremities. Garntet cath is present and patent. 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 Objective - Vital Signs Vital signs: Vital Signs Temp 99.8 F H 03/31/23 06:00 Pulse 123 H 03/31/23 06:00 Resp 32 H 03/31/23 06:00 BP 128/70 03/29/23 14:52 Pulse Ox 98 03/31/23 06:00 FiO2 60 03/31/23 06:00 Intake & Output 03/30/23 03/31/23 03/31/23 18:59 06:59 18:59 Intake Total 5931.853 7161.299 Output Total 295 540 Balance 1120.192 461.299 Weight 97 kg 101.2 kg Intake: IV 240 240 Lactated Ringers 1,000 ml 240 240 @ 20 mls/hr IV .Q24H [facility] Rx#:[id number] Intake, IV Titration 1175.192 481.299 Amount Ampicillin-Sulbactam 3 gm 100 In Sodium Chloride 0.9% 100 ml @ 200 mls/hr IVPB Q6HR [facility] Rx#:[id number] Cisatracurium 200 mg In 117.564 112.763 Sodium Chloride 0.9% 180 ml @ 2 MCG/KG/MIN 11.64 mls/hr IV .[id number] [facility] Rx #:[id number] Norepinephrine 32 mg In 136.456 112.172 Sodium Chloride 0.9% 218 ml @ 0.03 MCG/KG/MIN 1. 364 mls/hr IV .Q24H [facility] Rx#:[id number] Vancomycin 1,500 mg In 500 Sodium Chloride 0.9% 500 ml 500 ml @ 167 mls/hr IVPB Q24H [facility] Rx#: [id number] Vasopressin 60 unit In 116.076 Sodium Chloride 0.9% 150 ml @ 0.04 UNITS/MIN 6.12 mls/hr IV .Q24H [facility] Rx#: [id number] ceFAZolin 2 gm In Sodium 50 Chloride 0.9% 50 ml @ 100 mls/hr IVPB Q8H [facility] Rx#: [id number] propofoL 1,000 mg In 255.096 156.364 Empty Bag 1 bag @ 15 MCG/ KG/MIN 8.73 mls/hr IV . [id number] [facility] Rx#:[id number] Tube Feeding 170 Other 110 Output: Urine 295 540 Other: Voiding Method Indwelling Catheter Indwelling Catheter ABP, PAP, CO, CI - Last Documented Arterial Blood Pressure 121/50 - Exam Physical Examination Patient remains sedated and on Mechanical ventilation, settings currently FIO2 60%, PEEP 15, O2 sat 98% Inspection: Dressing to surgical incision has been changed this morning. Incision is well approximated with sutures and trinh intact. No drainage noted, clean and dry dressing applied. +1 nonpitting edema noted to bilateral hands and lower extremities. Garnett catheter remains in place and patent. SCDs and Prafo boots are present to lower extremities. Neurovascular: Radial pulse intact, 2+ bilaterally. Cap refill under 3 seconds in digits upper extremities. - Labs CBC & Chem 7: 03/31/23 04:25 03/31/23 04:25 Labs: Abnormal Lab Results - Last 24 Hours (Table) 03/29/23 03/30/23 03/30/23 Range/Units 15:20 11:27 11:35 WBC (3.8-10.6) k/uL RBC (3.80-5.40) m/uL Hgb (11.4-16.0) gm/dL Hct (34.0-46.0) % MCV (80.0-100.0) fL Neutrophils # (Manual) (1.3-7.7) k/uL Metamyelocytes # (Man) (0) k/uL Myelocytes # (Manual) (0) k/uL ABG pH (7.35-7.45) ABG pO2 (83-108) mmHg ABG HCO3 (21-25) mmol/L ABG O2 Saturation (94-97) % Sodium (137-145) mmol/L Chloride (98-107) mmol/L Carbon Dioxide (22-30) mmol/L BUN (7-17) mg/dL Creatinine (0.52-1.04) mg/dL Glucose (74-99) mg/dL POC Glucose (mg/dL) 247 H (70-110) mg/dL Calcium (8.4-10.2) mg/dL Urine Appearance Turbid H (Clear) Urine RBC 6 H (0-5) /hpf Urine WBC 21 H (0-5) /hpf Amorphous Sediment Moderate H (None) /hpf Hyaline Casts 5 H (0-2) /lpf Urine Mucus Rare H (None) /hpf Crossmatch See Detail 03/30/23 03/30/23 03/30/23 Range/Units 15:30 18:11 23:42 WBC (3.8-10.6) k/uL RBC (3.80-5.40) m/uL Hgb (11.4-16.0) gm/dL Hct (34.0-46.0) % MCV (80.0-100.0) fL Neutrophils # (Manual) (1.3-7.7) k/uL Metamyelocytes # (Man) (0) k/uL Myelocytes # (Manual) (0) k/uL ABG pH (7.35-7.45) ABG pO2 (83-108) mmHg ABG HCO3 (21-25) mmol/L ABG O2 Saturation (94-97) % Sodium (137-145) mmol/L Chloride (98-107) mmol/L Carbon Dioxide (22-30) mmol/L BUN (7-17) mg/dL Creatinine 1.54 H (0.52-1.04) mg/dL Glucose (74-99) mg/dL POC Glucose (mg/dL) 200 H 179 H (70-110) mg/dL Calcium (8.4-10.2) mg/dL Urine Appearance (Clear) Urine RBC (0-5) /hpf Urine WBC (0-5) /hpf Amorphous Sediment (None) /hpf Hyaline Casts (0-2) /lpf Urine Mucus (None) /hpf Crossmatch 03/31/23 03/31/23 03/31/23 Range/Units 04:25 04:25 05:30 WBC 20.4 H (3.8-10.6) k/uL RBC 2.57 L (3.80-5.40) m/uL Hgb 8.6 L (11.4-16.0) gm/dL Hct 26.5 L (34.0-46.0) % MCV 103.0 H (80.0-100.0) fL Neutrophils # (Manual) 17.10 H (1.3-7.7) k/uL Metamyelocytes # (Man) 0.82 H (0) k/uL Myelocytes # (Manual) 0.41 H (0) k/uL ABG pH (7.35-7.45) ABG pO2 (83-108) mmHg ABG HCO3 (21-25) mmol/L ABG O2 Saturation (94-97) % Sodium 135 L (137-145) mmol/L Chloride 109 H (98-107) mmol/L Carbon Dioxide 17 L (22-30) mmol/L BUN 24 H (7-17) mg/dL Creatinine 1.57 H (0.52-1.04) mg/dL Glucose 178 H (74-99) mg/dL POC Glucose (mg/dL) 193 H (70-110) mg/dL Calcium 6.9 L (8.4-10.2) mg/dL Urine Appearance (Clear) Urine RBC (0-5) /hpf Urine WBC (0-5) /hpf Amorphous Sediment (None) /hpf Hyaline Casts (0-2) /lpf Urine Mucus (None) /hpf Crossmatch 03/31/23 Range/Units 06:00 WBC (3.8-10.6) k/uL RBC (3.80-5.40) m/uL Hgb (11.4-16.0) gm/dL Hct (34.0-46.0) % MCV (80.0-100.0) fL Neutrophils # (Manual) (1.3-7.7) k/uL Metamyelocytes # (Man) (0) k/uL Myelocytes # (Manual) (0) k/uL ABG pH 7.26 L (7.35-7.45) ABG pO2 172 H (83-108) mmHg ABG HCO3 18 L (21-25) mmol/L ABG O2 Saturation 99.1 H (94-97) % Sodium (137-145) mmol/L Chloride (98-107) mmol/L Carbon Dioxide (22-30) mmol/L BUN (7-17) mg/dL Creatinine (0.52-1.04) mg/dL Glucose (74-99) mg/dL POC Glucose (mg/dL) (70-110) mg/dL Calcium (8.4-10.2) mg/dL Urine Appearance (Clear) Urine RBC (0-5) /hpf Urine WBC (0-5) /hpf Amorphous Sediment (None) /hpf Hyaline Casts (0-2) /lpf Urine Mucus (None) /hpf Crossmatch Microbiology - Last 24 Hours (Table) 03/29/23 15:20 Blood Culture - Preliminary Blood 03/29/23 15:00 Gram Stain - Preliminary Sputum Sputum Culture - Preliminary Gram Neg Bacilli Assessment and Plan Assessment: Postop Day 2: Irrigation and Debridement with revision dural repair lumbar spine ; Postop Day 10: [id number] decompression and fusion 1. Possible Aspiration Pneumonia 2. Possible post-op Ileus 3. Post-op anemia-resolved 4. L1-S1 spondylosis with stenosis 5. L1-S1 spondylolisthesis 6. Lower extremity radiculopathy 7. Low back pain 8. Lower extremity weakness Plan: -Appreciate cancer program consultant and team management. -Activity: ROM exercises of extremities if medically tolerated. -Pain control: Adequate at this time -Meds: reviewed -GI ppx: protonix -DVT PPX: SCDs and TEDS -Hygiene: Maintain dressing clean and dry. Meticulous cleaning after BMs away from the incision site -Dispo: Clinically pending *I reviewed and discussed this case with my attending Dr. Duong, whom has reviewed this chart and films and is in agreement with assessment and plan of care as outlined above. I have personally seen and examined the patient, performed the documentation and the assessment and plan as written. Number of minutes spent on the visit: 20m.
--- NOTE | 2023-03-31 08:36 | P.PN ---
Subjective Progress Note Date: 03/31/23 Principal diagnosis: Lumbar degenerative scoliosis LE weakness LE radiculopathy Pt s/e this am with PCC at bedside as well. She is looking slightly better than yesterday, with much reservation. She is coming down on her presser requirements at this time and her CXR is reviewed and is slightly improved since yesterday. She is on triple abx coverage for both Aspiration and meningeal sources. She grew Gram (-) out of ET secretions. Dressing was checked and changed. Incision is CDI at this time. No EEE. She continues to make small improvements. Objective - Vital Signs Vital signs: Vital Signs Temp 99.8 F H 03/31/23 06:00 Pulse 116 H 03/31/23 08:06 Resp 32 H 03/31/23 07:00 BP 128/70 03/29/23 14:52 Pulse Ox 98 03/31/23 07:00 FiO2 50 03/31/23 08:24 Intake & Output 03/30/23 03/31/23 03/31/23 18:59 06:59 18:59 Intake Total 7549.009 4064.299 60.021 Output Total 295 540 55 Balance 1120.192 461.299 5.021 Weight 97 kg 101.2 kg Intake: IV 240 240 20 Lactated Ringers 1,000 ml 240 240 20 @ 20 mls/hr IV .Q24H [facility] Rx#:[id number] Intake, IV Titration 1175.192 481.299 20.021 Amount Ampicillin-Sulbactam 3 gm 100 In Sodium Chloride 0.9% 100 ml @ 200 mls/hr IVPB Q6HR [facility] Rx#:[id number] Cisatracurium 200 mg In 117.564 112.763 Sodium Chloride 0.9% 180 ml @ 2 MCG/KG/MIN 11.64 mls/hr IV .[id number] [facility] Rx #:[id number] Norepinephrine 32 mg In 136.456 112.172 20.021 Sodium Chloride 0.9% 218 ml @ 0.03 MCG/KG/MIN 1. 364 mls/hr IV .Q24H [facility] Rx#:[id number] Vancomycin 1,500 mg In 500 Sodium Chloride 0.9% 500 ml 500 ml @ 167 mls/hr IVPB Q24H [facility] Rx#: [id number] Vasopressin 60 unit In 116.076 Sodium Chloride 0.9% 150 ml @ 0.04 UNITS/MIN 6.12 mls/hr IV .Q24H [facility] Rx#: [id number] ceFAZolin 2 gm In Sodium 50 Chloride 0.9% 50 ml @ 100 mls/hr IVPB Q8H [facility] Rx#: [id number] propofoL 1,000 mg In 255.096 156.364 Empty Bag 1 bag @ 15 MCG/ KG/MIN 8.73 mls/hr IV . [id number] [facility] Rx#:[id number] Tube Feeding 170 20 Other 110 Output: Urine 295 540 55 Other: Voiding Method Indwelling Catheter Indwelling Catheter ABP, PAP, CO, CI - Last Documented Arterial Blood Pressure 111/52 - Exam Vented, Sedated. Not following commands. PEERL Edema improved. Diaphoretic Neg Babinski Neg Cardona's No Clonus Dressing CDI Low back, changed, incision is CDI without EEE. - Labs CBC & Chem 7: 03/31/23 04:25 03/31/23 04:25 Labs: Abnormal Lab Results - Last 24 Hours (Table) 03/29/23 03/30/23 03/30/23 Range/Units 15:20 11:27 11:35 WBC (3.8-10.6) k/uL RBC (3.80-5.40) m/uL Hgb (11.4-16.0) gm/dL Hct (34.0-46.0) % MCV (80.0-100.0) fL Neutrophils # (Manual) (1.3-7.7) k/uL Metamyelocytes # (Man) (0) k/uL Myelocytes # (Manual) (0) k/uL ABG pH (7.35-7.45) ABG pO2 (83-108) mmHg ABG HCO3 (21-25) mmol/L ABG O2 Saturation (94-97) % Sodium (137-145) mmol/L Chloride (98-107) mmol/L Carbon Dioxide (22-30) mmol/L BUN (7-17) mg/dL Creatinine (0.52-1.04) mg/dL Glucose (74-99) mg/dL POC Glucose (mg/dL) 247 H (70-110) mg/dL Calcium (8.4-10.2) mg/dL Urine Appearance Turbid H (Clear) Urine RBC 6 H (0-5) /hpf Urine WBC 21 H (0-5) /hpf Amorphous Sediment Moderate H (None) /hpf Hyaline Casts 5 H (0-2) /lpf Urine Mucus Rare H (None) /hpf Crossmatch See Detail 03/30/23 03/30/23 03/30/23 Range/Units 15:30 18:11 23:42 WBC (3.8-10.6) k/uL RBC (3.80-5.40) m/uL Hgb (11.4-16.0) gm/dL Hct (34.0-46.0) % MCV (80.0-100.0) fL Neutrophils # (Manual) (1.3-7.7) k/uL Metamyelocytes # (Man) (0) k/uL Myelocytes # (Manual) (0) k/uL ABG pH (7.35-7.45) ABG pO2 (83-108) mmHg ABG HCO3 (21-25) mmol/L ABG O2 Saturation (94-97) % Sodium (137-145) mmol/L Chloride (98-107) mmol/L Carbon Dioxide (22-30) mmol/L BUN (7-17) mg/dL Creatinine 1.54 H (0.52-1.04) mg/dL Glucose (74-99) mg/dL POC Glucose (mg/dL) 200 H 179 H (70-110) mg/dL Calcium (8.4-10.2) mg/dL Urine Appearance (Clear) Urine RBC (0-5) /hpf Urine WBC (0-5) /hpf Amorphous Sediment (None) /hpf Hyaline Casts (0-2) /lpf Urine Mucus (None) /hpf Crossmatch 03/31/23 03/31/23 03/31/23 Range/Units 04:25 04:25 05:30 WBC 20.4 H (3.8-10.6) k/uL RBC 2.57 L (3.80-5.40) m/uL Hgb 8.6 L (11.4-16.0) gm/dL Hct 26.5 L (34.0-46.0) % MCV 103.0 H (80.0-100.0) fL Neutrophils # (Manual) 17.10 H (1.3-7.7) k/uL Metamyelocytes # (Man) 0.82 H (0) k/uL Myelocytes # (Manual) 0.41 H (0) k/uL ABG pH (7.35-7.45) ABG pO2 (83-108) mmHg ABG HCO3 (21-25) mmol/L ABG O2 Saturation (94-97) % Sodium 135 L (137-145) mmol/L Chloride 109 H (98-107) mmol/L Carbon Dioxide 17 L (22-30) mmol/L BUN 24 H (7-17) mg/dL Creatinine 1.57 H (0.52-1.04) mg/dL Glucose 178 H (74-99) mg/dL POC Glucose (mg/dL) 193 H (70-110) mg/dL Calcium 6.9 L (8.4-10.2) mg/dL Urine Appearance (Clear) Urine RBC (0-5) /hpf Urine WBC (0-5) /hpf Amorphous Sediment (None) /hpf Hyaline Casts (0-2) /lpf Urine Mucus (None) /hpf Crossmatch 03/31/23 Range/Units 06:00 WBC (3.8-10.6) k/uL RBC (3.80-5.40) m/uL Hgb (11.4-16.0) gm/dL Hct (34.0-46.0) % MCV (80.0-100.0) fL Neutrophils # (Manual) (1.3-7.7) k/uL Metamyelocytes # (Man) (0) k/uL Myelocytes # (Manual) (0) k/uL ABG pH 7.26 L (7.35-7.45) ABG pO2 172 H (83-108) mmHg ABG HCO3 18 L (21-25) mmol/L ABG O2 Saturation 99.1 H (94-97) % Sodium (137-145) mmol/L Chloride (98-107) mmol/L Carbon Dioxide (22-30) mmol/L BUN (7-17) mg/dL Creatinine (0.52-1.04) mg/dL Glucose (74-99) mg/dL POC Glucose (mg/dL) (70-110) mg/dL Calcium (8.4-10.2) mg/dL Urine Appearance (Clear) Urine RBC (0-5) /hpf Urine WBC (0-5) /hpf Amorphous Sediment (None) /hpf Hyaline Casts (0-2) /lpf Urine Mucus (None) /hpf Crossmatch Microbiology - Last 24 Hours (Table) 03/29/23 15:20 Blood Culture - Preliminary Blood 03/29/23 15:00 Gram Stain - Preliminary Sputum Sputum Culture - Preliminary Gram Neg Bacilli Assessment and Plan Assessment: 73 yo female with degenerative lumbar scoliosis surgery 03/21/23 and 03/29/23 POD 10 and 2 from lumbar decompression fusion T10-P with revision 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 PCC and Medicine primary ICU mgt. Vent and meds, pressers per ICU team. Cardiology added due to RVR last night at around 1 am. Called and asked them to see. Would like to wait on Heparin as long as possible to help with clot around dura. -Activity: Bedrest currently. Turn q2. Check dressing regularly. Elevate heels. Dickens boots. PT to move legs and arms to decrease edema. -Pain control: Vented, sedated -Meds: [reviewed] -GI ppx: senna, Miralax, mag citrate, -Garnett catheter -DVT PPX: Mechanical, OK to restart Chemo ppx tonight 24 hr post op -Start Enteral feeds. -Hygiene: Maintain dressing clean and dry. Meticulous cleaning after BMs away from incision site -No drain -Dispo: [Pending]
[2023-03-31] MEDS: CHLORHEXIDINE GLUCONATE 15 ML CUP MUCOUS MEM SCH ×2 (08:56→20:10)
[2023-03-31] MEDS: acetaZOLAMIDE 250 MG TAB PO SCH ×2 (08:56→22:02)
[2023-03-31] MEDS: PANTOPRAZOLE 40 MG/10 ML VIAL IV SCH (08:56)
[2023-03-31] MEDS: HYDROmorphone 1 MG/ML 1 ML SYRINGE IVP PRN ×5 (08:57→23:51)
[2023-03-31] MEDS ORDERED: bisacodyL 10 MG SUPP RECTAL STA (09:16)
--- NOTE | 2023-03-31 10:05 | P.PN ---
Subjective Progress Note Date: 03/31/23 Principal diagnosis: Respiratory failure. I am seeing this patient in new consultation today 03/22/2023 status postoperative day #1 following an elective T10 to pelvis decompression and fusion. Patient is a 72-year-old female with past medical history significant for chronic back pain and lumbar radiculopathy, diabetes mellitus type 2, hyperlipidemia, hypertension. Patient has been complaining of lumbar radiculopathy like symptoms earlier this year, and was evaluated by Dr. Duong. She was found to have multilevel spondylosis and spondylolisthesis. She underwent an elective T10 to pelvis decompression and fusion yesterday with Dr. Duong. She did have some postoperative hypotension. Estimated blood loss was reported as 700 ML's. She was given 1 unit PRBC, and a total of 2.5 L normal saline bolus. Blood pressures are now normotensive. Urine output is ad equate in the order of 50-60 ML's per hour. Patient was extubated successfully in recovery, currently on 4 L/m nasal cannula, in no acute distress. Postoperative chest x-ray shows no acute cardiopulmonary processes. There is a right sided intrajugular central line catheter near the cavoatrial junction. There were also some postsurgical changes. Patient is currently supine in bed. No focal neurological deficits. She is able to move all 4 extremities. Denies any sensation disturbances or saddle anesthesia. Postoperative CBC shows WBC count of 11.7, hemoglobin 8, hematocrit 23, platelets 173. BMP sodium 136, potassium 3.8, chloride 109, serum bicarb 11, BUN 18, creatinine 0.6, glucose 220. Magnesium was low at 1.3. Normal saline with 20 mEq of potassium is infusing at 50 ML's per hour. Nasal swab was positive and colonized with MSSA preoperatively, and the patient is currently on cefazolin. Pain is reportedly well managed on current regimen. Patient will be monitored in the intensive care unit. , patient remains in the ICU, hemodynamically stable, doing extremely well, denies any headache no blurred vision, no nausea no vomiting no abdominal pain, she has improvement in her radicular pain and numbness and tingling into the lower extremities. Her hemoglobin today is 9.3, Garnett catheter remains in place, patient will likely be transferred out of the ICU to a medical surgical floor today. WBC count is 10.5 hemoglobin 9.3 electrodes are normal renal profi le is normal. Bicarb is 19 Progress note dated 03/29/2023. 73-year-old female who went back to the operating room, after having surgery, to repair, a dural leak, in her lumbar spine. Unfortunately, the patient apparently was quite hypoxemic after the procedure, and they've had a large- volume asked her to aspiration. Seen today again one recovery, on the mechanical ventilator. She is on pressure assist control, with an inspiratory pressure of 22 cm water and inspiratory time of 1.1 seconds. Her rate is 20, her FiO2 was 100%, and a PEEP is 12. No gases been done as yet. She's also getting a bolus of lactated Ringer's, Eric-Synephrine pushes, and norepinephrine has been ordered. Anesthesiologist was placing an arterial line. I did speak to the surgeon, Dr. Duong. The patient will be transferred to the intensive care unit. The only labs from today include a glucose of 152, and a blood gas showing a pO2 of 53, pCO2 of 59, and a pH is 7.14. I'm not sure what settings the patient was on at that time. Chest x-ray shows bilateral consolidations, and infiltrative changes, which could be consistent with aspiration, and/or pulmonary edema. Progress note dated 03/30/2023. 73-year-old female who was seen in room 252, intensive care unit. She was seen yesterday, in the phase I recovery area, having had recent surgery for a dural tear. The patient unfortunately developed a high volume gastric aspiration, with respiratory failure, requiring intubation and mechanical ventilation. She's currently in the intensive care unit. She's on volume assist control, rate 32, tidal volume 400, FiO2 100%, PEEP of 15. Blood gases show pO2 123, a pCO2 44, and a pH is 7.22. The FiO2 was reduced down to 90%. In addition she is getting lactated Ringer's at 20 mL an hour, saline at KVO, Nimbex at 1 mcg/kg/m, norepinephrine at 25 mcg/m, vasopressin at 0.04 units per minute, prop ofol at 40 mcg/kg/m. The patient's on vancomycin and Rocephin. White count 15.8, hemoglobin 10, hematocrit 31.9, with a normal platelet count. Sodium 135, potassium 3.9, chlorides 108, CO2 15, anion gap 12, BUN 19, and creatinine 1.35. Magnesium is 2.2. Thus far, cultures are negative. Nasal swab was positive for staph aureus, not MRSA. Chest x-ray shows some bilateral airspace disease, which might be a bit improved, likely because of positive pressure ventilation. Progress note dated 03/31/2023. 73-year-old female seen in room 252. The patient was seen initially in consultation number of days ago, but we were reconsulted, a few days back. The patient headaches major lumbar procedure, and subsequently developed a dural leak. The patient went back to the operating room, for repair. Subsequent to that, she developed a large-volume aspiration, and is now developed acute respiratory failure, acute respiratory distress syndrome, and required intubation and mechanical ventilation. Currently, the patient is on volume assist control, rate 32, tidal volume 400, FiO2 is 60%, and PEEP of 15. Blood gases show pO2 172, pCO2 40, and a pH of 7.26. This is consistent with a mild metabolic acidosis. The patient's on a number drips including amiodarone at 0.5 mg/minute, vasopressin at 0.04 units per minute, norepinephrine at 14 mcg/m, propofol at 40 mcg/kg/m, Nimbex at 1.5 mcg/kg/m, and lactated Ringer's at 20 mL an hour. In addition, the patient's getting saline at KVO, and vital high protein at 20 mL an hour, with a goal of 32. White count 20.4, hemoglobin 8.6, hematocrit 26.5, and platelet count 283,000. Sodium 132, potassium 3.8, chlorides 109, CO2 17, BUN 24, and creatinine 1.57. Calcium is 6.9. Sputum was positive for Enterobacter cloaca, and Klebsiella oxytoca. Chest x-ray shows diffuse bilateral airspace disease. Objective - Vital Signs Vital signs: Vital Signs Temp 100.2 F H 03/31/23 08:00 Pulse 121 H 03/31/23 08:45 Resp 32 H 03/31/23 08:45 BP 128/70 03/29/23 14:52 Pulse Ox 97 03/31/23 08:45 FiO2 50 03/31/23 08:24 Intake & Output 03/30/23 03/31/23 03/31/23 18:59 06:59 18:59 Intake Total 6847.802 8432.299 149.261 Output Total 295 540 55 Balance 1120.192 461.299 94.261 Weight 97 kg 101.2 kg Intake: IV 240 240 20 Lactated Ringers 1,000 ml 240 240 20 @ 20 mls/hr IV .Q24H [facility] Rx#:[id number] Intake, IV Titration 1175.192 481.299 109.261 Amount Ampicillin-Sulbactam 3 gm 100 In Sodium Chloride 0.9% 100 ml @ 200 mls/hr IVPB Q6HR [facility] Rx#:[id number] Cisatracurium 200 mg In 117.564 112.763 Sodium Chloride 0.9% 180 ml @ 2 MCG/KG/MIN 11.64 mls/hr IV .[id number] [facility] Rx #:[id number] Norepinephrine 32 mg In 136.456 112.172 20.021 Sodium Chloride 0.9% 218 ml @ 0.03 MCG/KG/MIN 1. 364 mls/hr IV .Q24H [facility] Rx#:[id number] Vancomycin 1,500 mg In 500 Sodium Chloride 0.9% 500 ml 500 ml @ 167 mls/hr IVPB Q24H [facility] Rx#: [id number] Vasopressin 60 unit In 116.076 Sodium Chloride 0.9% 150 ml @ 0.04 UNITS/MIN 6.12 mls/hr IV .Q24H [facility] Rx#: [id number] ceFAZolin 2 gm In Sodium 50 Chloride 0.9% 50 ml @ 100 mls/hr IVPB Q8H [facility] Rx#: [id number] propofoL 1,000 mg In 255.096 156.364 89.24 Empty Bag 1 bag @ 15 MCG/ KG/MIN 8.73 mls/hr IV . [id number] [facility] Rx#:[id number] Tube Feeding 170 20 Other 110 Output: Urine 295 540 55 Other: Voiding Method Indwelling Catheter Indwelling Catheter ABP, PAP, CO, CI - Last Documented Arterial Blood Pressure 99/54 - Exam No acute distress, sedated, intubated, on 60% oxygen, with a PEEP of 15. HEENT examination is grossly unremarkable. Neck supple. Full range of motion. No adenopathy thyromegaly or neck vein distention. Cardiovascular examination reveals regular rhythm rate. S1-S2 normal. No S3 or S4. No discernible murmur noted. Heart rate 121 bpm. Lungs reveal scattered bilateral rhonchi. Breath sounds equal. Saturations are 97% Abdomen soft without bowel sounds. Extremities are intact. No cyanosis clubbing or edema. Skin is without rash or lesion. Neurologic examination cannot be assessed at this time. - Labs CBC & Chem 7: 03/31/23 04:25 03/31/23 04:25 Labs: Abnormal Lab Results - Last 24 Hours (Table) 03/29/23 03/30/23 03/30/23 Range/Units 15:20 11:27 11:35 WBC (3.8-10.6) k/uL RBC (3.80-5.40) m/uL Hgb (11.4-16.0) gm/dL Hct (34.0-46.0) % MCV (80.0-100.0) fL Neutrophils # (Manual) (1.3-7.7) k/uL Metamyelocytes # (Man) (0) k/uL Myelocytes # (Manual) (0) k/uL ABG pH (7.35-7.45) ABG pO2 (83-108) mmHg ABG HCO3 (21-25) mmol/L ABG O2 Saturation (94-97) % Sodium (137-145) mmol/L Chloride (98-107) mmol/L Carbon Dioxide (22-30) mmol/L BUN (7-17) mg/dL Creatinine (0.52-1.04) mg/dL Glucose (74-99) mg/dL POC Glucose (mg/dL) 247 H (70-110) mg/dL Calcium (8.4-10.2) mg/dL Urine Appearance Turbid H (Clear) Urine RBC 6 H (0-5) /hpf Urine WBC 21 H (0-5) /hpf Amorphous Sediment Moderate H (None) /hpf Hyaline Casts 5 H (0-2) /lpf Urine Mucus Rare H (None) /hpf Crossmatch See Detail 03/30/23 03/30/23 03/30/23 Range/Units 15:30 18:11 23:42 WBC (3.8-10.6) k/uL RBC (3.80-5.40) m/uL Hgb (11.4-16.0) gm/dL Hct (34.0-46.0) % MCV (80.0-100.0) fL Neutrophils # (Manual) (1.3-7.7) k/uL Metamyelocytes # (Man) (0) k/uL Myelocytes # (Manual) (0) k/uL ABG pH (7.35-7.45) ABG pO2 (83-108) mmHg ABG HCO3 (21-25) mmol/L ABG O2 Saturation (94-97) % Sodium (137-145) mmol/L Chloride (98-107) mmol/L Carbon Dioxide (22-30) mmol/L BUN (7-17) mg/dL Creatinine 1.54 H (0.52-1.04) mg/dL Glucose (74-99) mg/dL POC Glucose (mg/dL) 200 H 179 H (70-110) mg/dL Calcium (8.4-10.2) mg/dL Urine Appearance (Clear) Urine RBC (0-5) /hpf Urine WBC (0-5) /hpf Amorphous Sediment (None) /hpf Hyaline Casts (0-2) /lpf Urine Mucus (None) /hpf Crossmatch 03/31/23 03/31/23 03/31/23 Range/Units 04:25 04:25 05:30 WBC 20.4 H (3.8-10.6) k/uL RBC 2.57 L (3.80-5.40) m/uL Hgb 8.6 L (11.4-16.0) gm/dL Hct 26.5 L (34.0-46.0) % MCV 103.0 H (80.0-100.0) fL Neutrophils # (Manual) 17.10 H (1.3-7.7) k/uL Metamyelocytes # (Man) 0.82 H (0) k/uL Myelocytes # (Manual) 0.41 H (0) k/uL ABG pH (7.35-7.45) ABG pO2 (83-108) mmHg ABG HCO3 (21-25) mmol/L ABG O2 Saturation (94-97) % Sodium 135 L (137-145) mmol/L Chloride 109 H (98-107) mmol/L Carbon Dioxide 17 L (22-30) mmol/L BUN 24 H (7-17) mg/dL Creatinine 1.57 H (0.52-1.04) mg/dL Glucose 178 H (74-99) mg/dL POC Glucose (mg/dL) 193 H (70-110) mg/dL Calcium 6.9 L (8.4-10.2) mg/dL Urine Appearance (Clear) Urine RBC (0-5) /hpf Urine WBC (0-5) /hpf Amorphous Sediment (None) /hpf Hyaline Casts (0-2) /lpf Urine Mucus (None) /hpf Crossmatch 03/31/23 Range/Units 06:00 WBC (3.8-10.6) k/uL RBC (3.80-5.40) m/uL Hgb (11.4-16.0) gm/dL Hct (34.0-46.0) % MCV (80.0-100.0) fL Neutrophils # (Manual) (1.3-7.7) k/uL Metamyelocytes # (Man) (0) k/uL Myelocytes # (Manual) (0) k/uL ABG pH 7.26 L (7.35-7.45) ABG pO2 172 H (83-108) mmHg ABG HCO3 18 L (21-25) mmol/L ABG O2 Saturation 99.1 H (94-97) % Sodium (137-145) mmol/L Chloride (98-107) mmol/L Carbon Dioxide (22-30) mmol/L BUN (7-17) mg/dL Creatinine (0.52-1.04) mg/dL Glucose (74-99) mg/dL POC Glucose (mg/dL) (70-110) mg/dL Calcium (8.4-10.2) mg/dL Urine Appearance (Clear) Urine RBC (0-5) /hpf Urine WBC (0-5) /hpf Amorphous Sediment (None) /hpf Hyaline Casts (0-2) /lpf Urine Mucus (None) /hpf Crossmatch Microbiology - Last 24 Hours (Table) 03/29/23 15:00 Gram Stain - Final Sputum Sputum Culture - Final Enterobacter cloacae Klebsiella oxytoca 03/29/23 15:20 Blood Culture - Preliminary Blood Assessment and Plan Assessment: Acute hypoxemic respiratory failure, requiring intubation and mechanical ventilation, subsequent to repair of a dural tear, secondary to a large-volume gastric aspiration. S/P intubation and mechanical ventilation, for respiratory failure, 03/29/2023. Acute respiratory distress syndrome, with a P/F ratio of 120 (moderate ARDS). Acute development of atrial fibrillation with RVR. Lumbar spondylosis and spondylolisthesis, status post postop day #9, T10 to pelvic decompression and fusion. Severe hypotension, likely secondary to sepsis, currently on norepinephrine and vasopressin. Non-anion gap metabolic acidosis. History of lumbar radiculopathy. Type 2 diabetes mellitus. Benign essential hypertension. History of hyperlipidemia. Plan: Plan dated 03/29/2023. I did speak to the surgeon about this patient. Patient will be given a bed in the intensive care unit. We switch the patient to volume assist control mode, rate 20, tidal volume 350, 100%, and PEEP of 10. Blood gas will be done 30 minutes after the switch to volume assist control. Additional changes and mechanical ventilation, will be made after the blood gas. The patient is started on norepinephrine, for blood pressure support. She's also given 2 L of lactated Ringer's. Anesthesiology was placing an arterial line, and I think they were planning to place a central line as well. Additional recommendations and suggestions are forthcoming. Labs, will be reviewed. Medications will be reviewed. X-rays have been reviewed. Prognosis is guarded. Plan dated 03/30/2023. The patient's currently on vasopressin and norepinephrine, for blood pressure support. In addition, the patient is on propofol for sedation, and Nimbex, for chemical paralysis. The patient's on vancomycin and Rocephin. Cultures are thus far negative or pending. Chest x-rays a bit improved, likely secondary to positive pressure ventilation. The FiO2 was dropped from 100%, down to 90%. We will order a flat plate of the abdomen. If okay, we will begin tube feedings. No additional recommendations are made. I did speak to the orthopedic surgeon. The patient's overall prognosis remains very guarded at this point. She is obviously quite ill. Labs, x-rays, and medications are all reviewed. Plan dated 03/31/2023. The patient remains very critically ill, with a very tenuous respiratory and hemodynamic status. Labs, x-rays, and medications are reviewed. The patient remains on both vasopressin and norepinephrine for blood pressure support. The patient developed atrial fibrillation with RVR, and is currently on amiodarone. The patient remains on propofol, and Nimbex. Tube feedings are running at 20 mL an hour. The patient's FiO2 will be reduced down to 50%. We'll attempt to wean the patient off of Nimbex. We had Dilaudid, every 2 hours, for pain control. Labs, x-rays, medications are reviewed. We will continue to follow. I did give an update to the orthopedic surgeon today. Prognosis is certainly guarded. Time with Patient: Greater than 30
[2023-03-31] MEDS ORDERED: LACTULOSE 20 GM/30 ML CUP NG-TUBE ONE (10:29)
--- NOTE | 2023-03-31 10:49 | P.PN ---
Subjective Progress Note Date: 03/31/23 Pts pressor req improved to vasopressin 0.4 and 0.14 levophed. Saturating better on 50% FiO2 , 15 PEEP. CVP is 13-14. Went into AFib with RVR overnight, started on amiodarone. Micro growing klebisella, enterobacter. Gen: awake, alert HEENT: normocephalic, atraumatic, good hearing acuity, moist mucous membranes Resp: good air exchange, breathing comfortably with no accessory muscle use CVS: good distal perfusion x 4, GI: soft, NTTP, ND : no SPT, no CVAT, archuleta catheter is present MSK: no pitting edema, no clubbing Neuro: non-focal, moving all extremities Psych: cooperative, euthymic mood Hospital course: Patient is a 72-year-old female with dyslipidemia, hypertension, [id number] diabetes mellitus type 2 who presented for elective T10 to pelvis decompression and fusion. Assessment: 72-year-old female status post T10 to pelvis decompression with fusion Increase drainage from surgical incision s/p CSF repair on 03/29 - Orthospine note reviewed. Monitoring drainage, abdominal binder, and fioricet. Shock, Septic Multi-focal pneumonia Ventilator Dependent Acute Hypoxemic and Hypercarbic Respiratory Failure -Continue levophed, vasopressin -Started vancomycin, ceftriaxone to cover for meningitis/sepsis secondary to pneumonia or meningitis - given microbiology from sputum cx, can likely narrow to zosyn - defer to ID -ID consulted -wean nimbex, continue propofol -Bowel regimen will be added: miralax, senokot-S, bisacodyl suppository Acute blood loss anemia -Anticipated outcome of surgery -Follow CBC -Ferrous sulfate 325 mg daily- once daily regiment has showen to be as effective as more frequent dosing in improving iron stores, but is associated with less side effects. Diabetes mellitus type 2 -Hold metformin -Sliding-scale insulin -Follow blood sugars Dyslipidemia -Gemfibrozil Hypertension -Lisinopril 30 mg daily, continue to hold her Lisinopril/hydrochlorothiazide - follow BP DVT prophylaxis: Heparin Thank you for allowing us to participate in the care of this pleasant patient. Do not hesitate to contact us with questions. Someone can be reached from the [facility]Note 3] hospitalist group all hours of the day at [phone] or via p erfect serve. Objective - Vital Signs Vital signs: Vital Signs Temp 100.2 F H 03/31/23 08:00 Pulse 113 H 03/31/23 10:15 Resp 32 H 03/31/23 10:15 BP 128/70 03/29/23 14:52 Pulse Ox 98 03/31/23 10:15 FiO2 50 03/31/23 08:24 Intake & Output 03/30/23 03/31/23 03/31/23 18:59 06:59 18:59 Intake Total 0750.977 6541.299 429.261 Output Total 295 540 235 Balance 1120.192 461.299 194.261 Weight 97 kg 101.2 kg Intake: IV 240 240 80 Lactated Ringers 1,000 ml 240 240 80 @ 20 mls/hr IV .Q24H [facility] Rx#:[id number] Intake, IV Titration 1175.192 481.299 269.261 Amount Ampicillin-Sulbactam 3 gm 100 In Sodium Chloride 0.9% 100 ml @ 200 mls/hr IVPB Q6HR [facility] Rx#:[id number] Cisatracurium 200 mg In 117.564 112.763 Sodium Chloride 0.9% 180 ml @ 2 MCG/KG/MIN 11.64 mls/hr IV .[id number] [facility] Rx #:[id number] Lactated Ringers 1,000 ml 60 @ 20 mls/hr IV .Q24H [facility] Rx#:[id number] Norepinephrine 32 mg In 136.456 112.172 20.021 Sodium Chloride 0.9% 218 ml @ 0.03 MCG/KG/MIN 1. 364 mls/hr IV .Q24H [facility] Rx#:[id number] Vancomycin 1,500 mg In 500 Sodium Chloride 0.9% 500 ml 500 ml @ 167 mls/hr IVPB Q24H [facility] Rx#: [id number] Vasopressin 60 unit In 116.076 Sodium Chloride 0.9% 150 ml @ 0.04 UNITS/MIN 6.12 mls/hr IV .Q24H [facility] Rx#: [id number] ceFAZolin 2 gm In Sodium 50 Chloride 0.9% 50 ml @ 100 mls/hr IVPB Q8H [facility] Rx#: [id number] cefTRIAXone 2 gm In 100 Sodium Chloride 0.9% 50 ml @ 100 mls/hr IVPB Q12HR [facility] Rx#:[id number] propofoL 1,000 mg In 255.096 156.364 89.24 Empty Bag 1 bag @ 15 MCG/ KG/MIN 8.73 mls/hr IV . [id number] [facility] Rx#:[id number] Tube Feeding 170 80 Other 110 Output: Urine 295 540 235 Other: Voiding Method Indwelling Catheter Indwelling Catheter Indwelling Catheter ABP, PAP, CO, CI - Last Documented Arterial Blood Pressure 97/51 - Labs CBC & Chem 7: 03/31/23 04:25 03/31/23 04:25 Labs: Abnormal Lab Results - Last 24 Hours (Table) 03/29/23 03/30/23 03/30/23 Range/Units 15:20 11:27 11:35 WBC (3.8-10.6) k/uL RBC (3.80-5.40) m/uL Hgb (11.4-16.0) gm/dL Hct (34.0-46.0) % MCV (80.0-100.0) fL Neutrophils # (Manual) (1.3-7.7) k/uL Metamyelocytes # (Man) (0) k/uL Myelocytes # (Manual) (0) k/uL ABG pH (7.35-7.45) ABG pO2 (83-108) mmHg ABG HCO3 (21-25) mmol/L ABG O2 Saturation (94-97) % Sodium (137-145) mmol/L Chloride (98-107) mmol/L Carbon Dioxide (22-30) mmol/L BUN (7-17) mg/dL Creatinine (0.52-1.04) mg/dL Glucose (74-99) mg/dL POC Glucose (mg/dL) 247 H (70-110) mg/dL Calcium (8.4-10.2) mg/dL Urine Appearance Turbid H (Clear) Urine RBC 6 H (0-5) /hpf Urine WBC 21 H (0-5) /hpf Amorphous Sediment Moderate H (None) /hpf Hyaline Casts 5 H (0-2) /lpf Urine Mucus Rare H (None) /hpf Crossmatch See Detail 03/30/23 03/30/23 03/30/23 Range/Units 15:30 18:11 23:42 WBC (3.8-10.6) k/uL RBC (3.80-5.40) m/uL Hgb (11.4-16.0) gm/dL Hct (34.0-46.0) % MCV (80.0-100.0) fL Neutrophils # (Manual) (1.3-7.7) k/uL Metamyelocytes # (Man) (0) k/uL Myelocytes # (Manual) (0) k/uL ABG pH (7.35-7.45) ABG pO2 (83-108) mmHg ABG HCO3 (21-25) mmol/L ABG O2 Saturation (94-97) % Sodium (137-145) mmol/L Chloride (98-107) mmol/L Carbon Dioxide (22-30) mmol/L BUN (7-17) mg/dL Creatinine 1.54 H (0.52-1.04) mg/dL Glucose (74-99) mg/dL POC Glucose (mg/dL) 200 H 179 H (70-110) mg/dL Calcium (8.4-10.2) mg/dL Urine Appearance (Clear) Urine RBC (0-5) /hpf Urine WBC (0-5) /hpf Amorphous Sediment (None) /hpf Hyaline Casts (0-2) /lpf Urine Mucus (None) /hpf Crossmatch 03/31/23 03/31/23 03/31/23 Range/Units 04:25 04:25 05:30 WBC 20.4 H (3.8-10.6) k/uL RBC 2.57 L (3.80-5.40) m/uL Hgb 8.6 L (11.4-16.0) gm/dL Hct 26.5 L (34.0-46.0) % MCV 103.0 H (80.0-100.0) fL Neutrophils # (Manual) 17.10 H (1.3-7.7) k/uL Metamyelocytes # (Man) 0.82 H (0) k/uL Myelocytes # (Manual) 0.41 H (0) k/uL ABG pH (7.35-7.45) ABG pO2 (83-108) mmHg ABG HCO3 (21-25) mmol/L ABG O2 Saturation (94-97) % Sodium 135 L (137-145) mmol/L Chloride 109 H (98-107) mmol/L Carbon Dioxide 17 L (22-30) mmol/L BUN 24 H (7-17) mg/dL Creatinine 1.57 H (0.52-1.04) mg/dL Glucose 178 H (74-99) mg/dL POC Glucose (mg/dL) 193 H (70-110) mg/dL Calcium 6.9 L (8.4-10.2) mg/dL Urine Appearance (Clear) Urine RBC (0-5) /hpf Urine WBC (0-5) /hpf Amorphous Sediment (None) /hpf Hyaline Casts (0-2) /lpf Urine Mucus (None) /hpf Crossmatch 03/31/23 Range/Units 06:00 WBC (3.8-10.6) k/uL RBC (3.80-5.40) m/uL Hgb (11.4-16.0) gm/dL Hct (34.0-46.0) % MCV (80.0-100.0) fL Neutrophils # (Manual) (1.3-7.7) k/uL Metamyelocytes # (Man) (0) k/uL Myelocytes # (Manual) (0) k/uL ABG pH 7.26 L (7.35-7.45) ABG pO2 172 H (83-108) mmHg ABG HCO3 18 L (21-25) mmol/L ABG O2 Saturation 99.1 H (94-97) % Sodium (137-145) mmol/L Chloride (98-107) mmol/L Carbon Dioxide (22-30) mmol/L BUN (7-17) mg/dL Creatinine (0.52-1.04) mg/dL Glucose (74-99) mg/dL POC Glucose (mg/dL) (70-110) mg/dL Calcium (8.4-10.2) mg/dL Urine Appearance (Clear) Urine RBC (0-5) /hpf Urine WBC (0-5) /hpf Amorphous Sediment (None) /hpf Hyaline Casts (0-2) /lpf Urine Mucus (None) /hpf Crossmatch Microbiology - Last 24 Hours (Table) 03/29/23 15:00 Gram Stain - Final Sputum Sputum Culture - Final Enterobacter cloacae Klebsiella oxytoca 03/29/23 15:20 Blood Culture - Preliminary Blood
[2023-03-31] MEDS ORDERED: VANCOMYCIN TROUGH DUE 1 EACH MISC MISCELLANE ONE (11:00)
--- NOTE | 2023-03-31 11:10 | P.PN ---
Progress Note - Text Progress Note Date: 03/31/23 Patient remains clinically unchanged. She still on the ventilator. Her CAT scan shows evidence of large stool burden in the colon. There is no evidence of obstruction. On exam vital signs are stable. Abdomen is soft. Large amount of retained stool. Patient will be given lactulose 30 mL down the NG tube today.
[2023-03-31 11:53] LABS: Glucose,Whole Blood 177 mg/dL (70-110)
[2023-03-31] MEDS: VANCOMYCIN 1,500 MG in SODIUM CHLORIDE 0.9% 500 ML 500 ML IVPB SCH (12:00)
[2023-03-31] MEDS: polyethylene glycoL 3350 17 GM POWD.PACK PO SCH (12:00)
[2023-03-31] MEDS ORDERED: CEFEPIME 2 GM in SODIUM CHLORIDE 0.9% 100 ML IVPB SCH (12:00)
[2023-03-31] MEDS: SENNOSIDES-DOCUSATE SODIUM 1 EACH TAB PO SCH ×2 (12:03→20:10)
[2023-03-31] MEDS: NOREPINEPHRINE 32 MG in SODIUM CHLORIDE 0.9% 218 ML IV SCH (12:38)
[2023-03-31] MEDS ORDERED: MINERAL OIL 133 ML ENEMA RECTAL STA (15:29)
[2023-03-31] MEDS: LACTATED RINGERS 1,000 ML IV SCH (15:33)
[2023-03-31 17:11] LABS: Glucose,Whole Blood 184 mg/dL (70-110)
[2023-03-31] MEDS: VASOPRESSIN 60 UNIT in SODIUM CHLORIDE 0.9% 150 ML IV SCH (18:58)
--- NOTE | 2023-03-31 22:14 | P.CONS ---
History of Present Illness - Reason for Consult Consult date: 03/31/23 - History of Present Illness Patient is a 73-year-old female electively admitted to the hospital 03/21/2023 and this patient who is s/p extensive thoracolumbar spine surgery in this patient who is status post L2-L5 deformity correction did have a L2-S1 interbody fusion and T10-L2 posterior lateral instrumented fusion patient was subsequently admitted to the hospital and has been under the care of the pulmonary and the medical team patient did have postoperative CSF leak status post complex T10 posterior decompression fusion with dural repair postoperatively the patient did have a respiratory distress requiring intubation patient did spike a fever early this morning of 100.5 degrees following height patient has been tachycardic and tachypneic is currently on 40% FiO2 patient also on pressor support and did have a white count up to 20,000 today with a left shift BUN/creatinine has been mildly elevated liver exams are normal urine mildly positive patient did have a abdominal pelvis CT bilateral lower lung airspace opacities and consolidation correlate for aspiration versus inflamed features including due to body postsurgical changes of the spine with subcutaneous air hardware appears intact large stool burden distended gastric lumen patient also have a chest x-ray diffuse pallor is present. Persistent improvement noted with the left midlung zone patient was initially started on Unasyn neuro ceftriaxone vancomycin and acyclovir concerning for meningitis after discussion of the case with the admitting team and the patient sputum cultures obtained on 03/29/23 complaint of positive with Enterobacter and Klebsiella patient but has been switched over to cefepime pending evaluation patient blood cultures obtained on the are pending at this point however the information has been obtained from review the chart talking nursing staff as well as admitting team as the patient is currently intubated on the vent and cannot provide any history Past Medical History Past Medical History: Diabetes Mellitus, Hyperlipidemia, Hypertension, Musculoskeletal Disorder, Osteoarthritis (OA) Additional Past Medical History / Comment(s): Degenerative Disc Disease. History of Any Multi-Drug Resistant Organisms: None Reported Past Surgical History: Cholecystectomy Additional Past Surgical History / Comment(s): Dental work, cataract surgery. Past Anesthesia/Blood Transfusion Reactions: No Reported Reaction Past Psychological History: No Psychological Hx Reported Smoking Status: Never smoker Past Alcohol Use History: Occasional Additional Past Alcohol Use History / Comment(s): 2-3 alcoholic drinks 3-4 times per week. Past Drug Use History: None Reported - Past Family History Brother(s) Family Medical History: Cancer Additional Family Medical History / Comment(s): Lung cancer. Father Family Medical History: Cancer Additional Family Medical History / Comment(s): Melanoma. Medications and Allergies Home Medications Medication Instructions Recorded Confirmed Type Calcium Citrate/Vitamin D3 1 each PO DAILY 03/15/23 03/21/23 History [Citracal + D Maximum Caplet] Glucosamine/Chondr Leon A Sod [Osteo 1 each PO BID 03/15/23 03/21/23 History Bi-Flex Caplet] Lisinopril-Hctz 20-12.5 mg 1 tab PO QAM 03/15/23 03/21/23 History [Zestoretic 20-12.5] Multivitamins, Thera [Multivitamin 1 tab PO DAILY 03/15/23 03/21/23 History (formulary)] Nabumetone 750 mg PO BID 03/15/23 03/21/23 History Niacin 500 mg PO DAILY 03/15/23 03/21/23 History gemfibroziL [Lopid] 600 mg PO BID 03/15/23 03/21/23 History lisinopriL [Prinivil] 20 mg PO QAM 03/15/23 03/21/23 History metFORMIN HCL 500 mg PO BID 03/15/23 03/21/23 History Cyclobenzaprine [Flexeril] 5 mg PO TID #90 tablet 03/26/23 Rx Gabapentin [Neurontin] 100 mg PO TID #90 cap 03/26/23 Rx HYDROcodone/APAP 10-325MG [[place] 1 tab PO Q4-6H PRN #42 tab 03/26/23 Rx 10-325] Sennosides/Docusate Sodium [Senna 1 each PO DAILY PRN #20 capsule 03/26/23 Rx Plus 8.6-50 mg Softgel] cefaDROXiL [Duricef] 500 mg PO Q12HR 10 Days #20 cap 03/26/23 Rx hydrOXYzine pamoate [Vistaril] 25 mg PO QID PRN #20 cap 03/26/23 Rx Allergies Allergy/AdvReac Type Severity Reaction Status Date / Time ciprofloxacin [From Cipro] Allergy Rash/Hives Verified 03/21/23 07:27 poison jarek extract Allergy Rash/Hives Verified 03/21/23 07:27 Sulfa (Sulfonamide Allergy Unknown Verified 03/21/23 07:27 Antibiotics) Physical Exam Vitals: Vital Signs Temp Pulse Resp Pulse Ox FiO2 03/31/23 11:01 110 H 03/31/23 10:50 110 H 03/31/23 10:47 40 03/31/23 10:15 113 H 32 H 98 03/31/23 10:00 123 H 32 H 97 03/31/23 09:45 108 H 32 H 97 03/31/23 09:30 121 H 32 H 97 03/31/23 09:15 117 H 32 H 97 03/31/23 09:00 120 H 32 H 97 03/31/23 08:45 121 H 32 H 97 03/31/23 08:30 112 H 32 H 97 03/31/23 08:24 50 03/31/23 08:15 114 H 32 H 98 03/31/23 08:06 116 H 03/31/23 08:00 100.2 F H 117 H 32 H 98 50 03/31/23 07:54 116 H 03/31/23 07:45 109 H 32 H 98 03/31/23 07:37 60 03/31/23 07:30 130 H 32 H 98 03/31/23 07:15 115 H 32 H 98 03/31/23 07:00 114 H 32 H 98 60 03/31/23 06:45 114 H 32 H 98 03/31/23 06:30 105 H 32 H 98 60 03/31/23 06:15 120 H 32 H 98 03/31/23 06:00 99.8 F H 123 H 32 H 98 60 03/31/23 05:45 122 H 32 H 97 03/31/23 05:30 113 H 32 H 98 60 03/31/23 05:15 128 H 32 H 98 03/31/23 05:00 130 H 32 H 98 60 03/31/23 04:45 118 H 32 H 97 03/31/23 04:30 116 H 32 H 97 03/31/23 04:15 117 H 10 L 98 03/31/23 04:00 100.5 F H 135 H 32 H 97 60 03/31/23 03:50 60 03/31/23 03:45 117 H 26 H 97 03/31/23 03:30 121 H 32 H 98 60 03/31/23 03:15 131 H 32 H 97 03/31/23 03:00 125 H 32 H 97 60 03/31/23 02:45 149 H 32 H 97 03/31/23 02:30 128 H 32 H 97 60 03/31/23 02:15 146 H 32 H 97 03/31/23 02:00 133 H 32 H 97 60 03/31/23 01:45 141 H 32 H 96 03/31/23 01:30 134 H 32 H 97 60 03/31/23 01:15 131 H 32 H 96 03/31/23 01:00 163 H 32 H 96 60 03/31/23 00:56 99.9 F H 03/31/23 00:45 138 H 32 H 96 03/31/23 00:30 154 H 32 H 96 60 03/31/23 00:15 131 H 32 H 96 03/31/23 00:00 146 H 32 H 96 60 03/30/23 23:51 60 03/30/23 23:45 149 H 32 H 95 03/30/23 23:30 158 H 32 H 95 60 03/30/23 23:15 172 H 32 H 96 03/30/23 23:00 168 H 32 H 96 60 03/30/23 22:45 103 H 32 H 96 03/30/23 22:30 104 H 32 H 96 03/30/23 22:15 105 H 32 H 96 03/30/23 22:00 104 H 32 H 96 60 03/30/23 21:45 103 H 32 H 97 03/30/23 21:30 101 H 32 H 97 03/30/23 21:15 102 H 32 H 97 03/30/23 21:00 102 H 32 H 97 60 03/30/23 20:45 101 H 32 H 97 03/30/23 20:30 100 32 H 97 03/30/23 20:15 101 H 32 H 97 03/30/23 20:00 96.4 F L 101 H 32 H 96 60 03/30/23 19:47 102 H 03/30/23 19:45 101 H 32 H 97 03/30/23 19:30 102 H 32 H 97 03/30/23 19:28 60 03/30/23 19:15 101 H 32 H 96 03/30/23 19:00 102 H 32 H 96 03/30/23 18:45 104 H 32 H 96 03/30/23 18:30 104 H 32 H 96 60 03/30/23 18:29 60 03/30/23 18:15 103 H 32 H 97 03/30/23 18:00 103 H 32 H 97 03/30/23 17:45 103 H 32 H 96 03/30/23 17:30 105 H 32 H 97 03/30/23 17:15 102 H 32 H 96 03/30/23 17:00 103 H 32 H 96 03/30/23 16:51 101 H 32 H 03/30/23 16:45 101 H 32 H 96 03/30/23 16:38 104 H 32 H 03/30/23 16:36 70 03/30/23 16:30 103 H 32 H 96 03/30/23 16:15 103 H 32 H 96 03/30/23 16:00 97.4 F L 103 H 32 H 96 70 03/30/23 15:45 103 H 32 H 95 03/30/23 15:30 103 H 32 H 95 03/30/23 15:15 103 H 32 H 95 03/30/23 15:00 104 H 32 H 95 03/30/23 14:45 103 H 32 H 95 03/30/23 14:30 102 H 66 H 03/30/23 14:15 93 L 70 03/30/23 13:45 100 33 H 96 03/30/23 13:30 100 32 H 95 03/30/23 13:15 101 H 32 H 95 03/30/23 13:00 103 H 33 H 95 03/30/23 12:45 104 H 32 H 95 03/30/23 12:30 105 H 32 H 94 L 03/30/23 12:15 105 H 32 H 94 L 03/30/23 12:00 99.6 F 106 H 32 H 94 L 70 Intake and Output 03/30/23 03/31/23 03/31/23 22:59 06:59 14:59 Intake Total 678.327 696.119 429.261 Output Total 260 390 235 Balance 418.327 306.119 194.261 Intake: IV 160 160 80 Lactated Ringers 1,000 ml 160 160 80 @ 20 mls/hr IV .Q24H [facility] Rx#:[id number] Intake, IV Titration 438.327 336.119 269.261 Amount Ampicillin-Sulbactam 3 gm 100 In Sodium Chloride 0.9% 100 ml @ 200 mls/hr IVPB Q6HR [facility] Rx#:[id number] Cisatracurium 200 mg In 30.555 112.763 Sodium Chloride 0.9% 180 ml @ 2 MCG/KG/MIN 11.64 mls/hr IV .[id number] [facility] Rx #:[id number] Lactated Ringers 1,000 ml 60 @ 20 mls/hr IV .Q24H [facility] Rx#:[id number] Norepinephrine 32 mg In 91.696 66.992 20.021 Sodium Chloride 0.9% 218 ml @ 0.03 MCG/KG/MIN 1. 364 mls/hr IV .Q24H [facility] Rx#:[id number] Vasopressin 60 unit In 116.076 Sodium Chloride 0.9% 150 ml @ 0.04 UNITS/MIN 6.12 mls/hr IV .Q24H [facility] Rx#: [id number] cefTRIAXone 2 gm In 100 Sodium Chloride 0.9% 50 ml @ 100 mls/hr IVPB Q12HR [facility] Rx#:[id number] propofoL 1,000 mg In 100 156.364 89.24 Empty Bag 1 bag @ 15 MCG/ KG/MIN 8.73 mls/hr IV . [id number] [facility] Rx#:[id number] Tube Feeding 30 140 80 Other 50 60 Output: Urine 260 390 235 Other: Voiding Method Indwelling Catheter Indwelling Catheter Indwelling Catheter Weight 101.2 kg ABP, PAP, CO, CI - Last 8 Hours Arterial Blood Pressure 97/51 Arterial Blood Pressure 103/54 Arterial Blood Pressure 89/52 Arterial Blood Pressure 98/55 Arterial Blood Pressure 92/54 Arterial Blood Pressure 90/47 Arterial Blood Pressure 99/54 Arterial Blood Pressure 95/53 Arterial Blood Pressure 94/52 Arterial Blood Pressure 97/60 Arterial Blood Pressure 109/60 Arterial Blood Pressure 119/61 Arterial Blood Pressure 115/54 Arterial Blood Pressure 111/52 Arterial Blood Pressure 127/52 Arterial Blood Pressure 120/48 Arterial Blood Pressure 125/50 Arterial Blood Pressure 121/50 Arterial Blood Pressure 137/53 Arterial Blood Pressure 147/54 Arterial Blood Pressure 125/49 Arterial Blood Pressure 122/47 Arterial Blood Pressure 109/46 Arterial Blood Pressure 118/67 Arterial Blood Pressure 130/49 Results CBC & Chem 7: 03/31/23 04:25 03/31/23 04:25 Labs: Abnormal Lab Results - Last 24 Hours (Table) 03/29/23 03/30/23 03/30/23 Range/Units 15:20 11:27 15:30 WBC (3.8-10.6) k/uL RBC (3.80-5.40) m/uL Hgb (11.4-16.0) gm/dL Hct (34.0-46.0) % MCV (80.0-100.0) fL Neutrophils # (Manual) (1.3-7.7) k/uL Metamyelocytes # (Man) (0) k/uL Myelocytes # (Manual) (0) k/uL ABG pH (7.35-7.45) ABG pO2 (83-108) mmHg ABG HCO3 (21-25) mmol/L ABG O2 Saturation (94-97) % Sodium (137-145) mmol/L Chloride (98-107) mmol/L Carbon Dioxide (22-30) mmol/L BUN (7-17) mg/dL Creatinine 1.54 H (0.52-1.04) mg/dL Glucose (74-99) mg/dL POC Glucose (mg/dL) (70-110) mg/dL Calcium (8.4-10.2) mg/dL Urine Appearance Turbid H (Clear) Urine RBC 6 H (0-5) /hpf Urine WBC 21 H (0-5) /hpf Amorphous Sediment Moderate H (None) /hpf Hyaline Casts 5 H (0-2) /lpf Urine Mucus Rare H (None) /hpf Crossmatch See Detail 03/30/23 03/30/23 03/31/23 Range/Units 18:11 23:42 04:25 WBC 20.4 H (3.8-10.6) k/uL RBC 2.57 L (3.80-5.40) m/uL Hgb 8.6 L (11.4-16.0) gm/dL Hct 26.5 L (34.0-46.0) % MCV 103.0 H (80.0-100.0) fL Neutrophils # (Manual) 17.10 H (1.3-7.7) k/uL Metamyelocytes # (Man) 0.82 H (0) k/uL Myelocytes # (Manual) 0.41 H (0) k/uL ABG pH (7.35-7.45) ABG pO2 (83-108) mmHg ABG HCO3 (21-25) mmol/L ABG O2 Saturation (94-97) % Sodium (137-145) mmol/L Chloride (98-107) mmol/L Carbon Dioxide (22-30) mmol/L BUN (7-17) mg/dL Creatinine (0.52-1.04) mg/dL Glucose (74-99) mg/dL POC Glucose (mg/dL) 200 H 179 H (70-110) mg/dL Calcium (8.4-10.2) mg/dL Urine Appearance (Clear) Urine RBC (0-5) /hpf Urine WBC (0-5) /hpf Amorphous Sediment (None) /hpf Hyaline Casts (0-2) /lpf Urine Mucus (None) /hpf Crossmatch 03/31/23 03/31/23 03/31/23 Range/Units 04:25 05:30 06:00 WBC (3.8-10.6) k/uL RBC (3.80-5.40) m/uL Hgb (11.4-16.0) gm/dL Hct (34.0-46.0) % MCV (80.0-100.0) fL Neutrophils # (Manual) (1.3-7.7) k/uL Metamyelocytes # (Man) (0) k/uL Myelocytes # (Manual) (0) k/uL ABG pH 7.26 L (7.35-7.45) ABG pO2 172 H (83-108) mmHg ABG HCO3 18 L (21-25) mmol/L ABG O2 Saturation 99.1 H (94-97) % Sodium 135 L (137-145) mmol/L Chloride 109 H (98-107) mmol/L Carbon Dioxide 17 L (22-30) mmol/L BUN 24 H (7-17) mg/dL Creatinine 1.57 H (0.52-1.04) mg/dL Glucose 178 H (74-99) mg/dL POC Glucose (mg/dL) 193 H (70-110) mg/dL Calcium 6.9 L (8.4-10.2) mg/dL Urine Appearance (Clear) Urine RBC (0-5) /hpf Urine WBC (0-5) /hpf Amorphous Sediment (None) /hpf Hyaline Casts (0-2) /lpf Urine Mucus (None) /hpf Crossmatch Microbiology - Last 24 Hours (Table) 03/29/23 15:00 Gram Stain - Final Sputum Sputum Culture - Final Enterobacter cloacae Klebsiella oxytoca 03/29/23 15:20 Blood Culture - Preliminary Blood Assessment and Plan Plan: 1patient with a sepsis/septic shock in this patient with fever elevated white count hypertension tachycardia is source likely aspiration pneumonia likely gram-negative with a sputum currently growing Klebsiella and Enterobacter with some resistant pattern, patient did have a CSF leak and did have extensive T10- S1 spine surgery underlying meningitis less likely bilateral excluded 2-we will empirically cover the patient with a cefepime and vancomycin pending finalization of the cultures and stabilization of the clinical condition Prognosis remains to be guarded at the bedside questions were answered We will follow on clinical condition and cultures to further adjust medication if needed Thank you for this consultation we will follow the patient along with you Dictation was produced using [employer] dictation software. please excuse any grammatical, word or spelling errors. Time with Patient: Greater than 30
[2023-03-31] MEDS: CEFEPIME 2 GM in SODIUM CHLORIDE 0.9% 100 ML IVPB SCH (23:50)
[2023-03-31 23:54] LABS: Glucose,Whole Blood 195 mg/dL (70-110)
[2023-04-01] MEDS: INSULIN ASPART (NovoLOG) 100 UNIT/ML VIAL SQ SCH ×5 (00:05→17:34)
[2023-04-01] MEDS: ARTIFICIAL TEARS-HYPROMELLOSE DROPS 15 ML BTL BOTH EYES SCH ×3 (00:05→08:22)
[2023-04-01] MEDS: HYDROmorphone 1 MG/ML 1 ML SYRINGE IVP PRN ×2 (02:45→06:36)
[2023-04-01] MEDS: IPRATROPIUM-ALBUTEROL 3 ML NEB INHALATION SCH ×5 (03:20→19:57)
[2023-04-01 04:28] LABS: Basophils % (A) 0 %; Eosinophils # (A) 0.7 k/uL (0-0.7); Eosinophils % (A) 3 %; HCT 23.5 % (34.0-46.0); HGB 7.8 gm/dL (11.4-16.0); Hypochromasia Marked; Lymphocytes # (A) 1.8 k/uL (1.0-4.8); Lymphocytes % (A) 9 %; MCHC 33.1 g/dL (31.0-37.0); MCV 102.6 fL (80.0-100.0); Macrocytosis Slight; Mean Platelet Volume 8.3; Monocytes # (A) 0.3 k/uL (0-1.0); Monocytes % (A) 1 %; Neutrophils # (A) 18.2 k/uL (1.3-7.7); Neutrophils % (A) 86 %; Platelet Count 247 k/uL (150-450); Poikilocytosis Slight; RBC 2.29 m/uL (3.80-5.40); WBC 21.2 k/uL (3.8-10.6)
[2023-04-01 04:46] LABS: African American GFR (CKD) 49 (>60 ml/min/1.73 sqM); Anion Gap 10 mmol/L; Blood Urea Nitrogen 22 mg/dL (7-17); Calcium 7.2 mg/dL (8.4-10.2); Carbon Dioxide 17 mmol/L (22-30); Chloride 110 mmol/L (98-107); Glucose 159 mg/dL (74-99); Non-African American GFR(CKD) 42 (>60 ml/min/1.73 sqM); Potassium 3.4 mmol/L (3.5-5.1); Sodium 137 mmol/L (137-145)
[2023-04-01 05:09] LABS: ABG Base Excess -8.5 mmol/L; ABG HCO3 18 mmol/L (21-25); ABG Oxygen Saturation 97.7 % (94-97); ABG PCO2 36 mmHg (35-45); ABG PH 7.31 (7.35-7.45); ABG PO2 103 mmHg (83-108); ABG TCO2 19 mmol/L (19-24); Allen Test Performed? Yes
[2023-04-01 05:28] LABS: Anisocytosis (M) Present; Hypochromasia (M) Present; Polychromasia Present
[2023-04-01 05:49] LABS: Glucose,Whole Blood 192 mg/dL (70-110)
[2023-04-01] MEDS: POTASSIUM BICARBONATE/CIT AC 20 MEQ TABLET.EFF NG-TUBE SCH ×2 (06:08→07:10)
--- NOTE | 2023-04-01 07:01 | XR ---
EXAMINATION TYPE: XR chest 1V portable DATE OF EXAM: 04/01/2023 5:35 AM COMPARISON: Chest radiographs from 03/31/2023 TECHNIQUE: XR chest 1V portable Portable AP radiograph of the chest. CLINICAL INDICATION:Female, 73 years old with history of Tube placement; FINDINGS: Lungs/Pleura: No pleural effusion or pneumothorax. Diffuse multifocal patchy airspace opacities are u nchanged. Pulmonary vascularity: Unremarkable. Heart/mediastinum: Cardiomediastinal silhouette is prominent in size. Musculoskeletal: No acute osseous pathology. Postsurgical changes from thoracolumbar fusion. Other findings: Skin trinh overlie the right chest. Lines/Tubes: Endotracheal tube with distal tip 5.3 cm above the mercy Nasogastric tube with its distal tip and side-port projecting under the diaphragm. Right internal jugular central venous catheter with distal tip at the right atrium. IMPRESSION: 1. Diffuse bilateral multifocal airspace opacities are unchanged from prior exam. 2. Stable support lines and tubes.
[2023-04-01] MEDS: HYDROcodone/APAP 10-325MG 1 EACH TAB PO SCH (08:21)
[2023-04-01] MEDS: LACTATED RINGERS 1,000 ML IV SCH ×3 (08:21→09:03)
[2023-04-01] MEDS: SENNOSIDES-DOCUSATE SODIUM 1 EACH TAB PO SCH ×2 (09:02→20:36)
[2023-04-01] MEDS: CHLORHEXIDINE GLUCONATE 15 ML CUP MUCOUS MEM SCH ×2 (09:02→20:05)
[2023-04-01] MEDS: polyethylene glycoL 3350 17 GM POWD.PACK PO SCH (09:03)
[2023-04-01] MEDS: acetaZOLAMIDE 250 MG TAB PO SCH ×2 (09:03→20:36)
[2023-04-01] MEDS: PANTOPRAZOLE 40 MG/10 ML VIAL IV SCH (09:03)
[2023-04-01] MEDS: HYDROmorphone 1 MG/ML 1 ML SYRINGE IVP SCH ×4 (09:27→20:04)
[2023-04-01] MEDS ORDERED: LACTULOSE 20 GM/30 ML CUP PO ONE (10:00)
--- NOTE | 2023-04-01 10:38 | P.PN ---
Subjective Progress Note Date: 04/01/23 Principal diagnosis: Respiratory failure. I am seeing this patient in new consultation today 03/22/2023 status postoperative day #1 following an elective T10 to pelvis decompression and fusion. Patient is a 72-year-old female with past medical history significant for chronic back pain and lumbar radiculopathy, diabetes mellitus type 2, hyperlipidemia, hypertension. Patient has been complaining of lumbar radiculopathy like symptoms earlier this year, and was evaluated by Dr. Duong. She was found to have multilevel spondylosis and spondylolisthesis. She underwent an elective T10 to pelvis decompression and fusion yesterday with Dr. Duong. She did have some postoperative hypotension. Estimated blood loss was reported as 700 ML's. She was given 1 unit PRBC, and a total of 2.5 L normal saline bolus. Blood pressures are now normotensive. Urine output is ad equate in the order of 50-60 ML's per hour. Patient was extubated successfully in recovery, currently on 4 L/m nasal cannula, in no acute distress. Postoperative chest x-ray shows no acute cardiopulmonary processes. There is a right sided intrajugular central line catheter near the cavoatrial junction. There were also some postsurgical changes. Patient is currently supine in bed. No focal neurological deficits. She is able to move all 4 extremities. Denies any sensation disturbances or saddle anesthesia. Postoperative CBC shows WBC count of 11.7, hemoglobin 8, hematocrit 23, platelets 173. BMP sodium 136, potassium 3.8, chloride 109, serum bicarb 11, BUN 18, creatinine 0.6, glucose 220. Magnesium was low at 1.3. Normal saline with 20 mEq of potassium is infusing at 50 ML's per hour. Nasal swab was positive and colonized with MSSA preoperatively, and the patient is currently on cefazolin. Pain is reportedly well managed on current regimen. Patient will be monitored in the intensive care unit. , patient remains in the ICU, hemodynamically stable, doing extremely well, denies any headache no blurred vision, no nausea no vomiting no abdominal pain, she has improvement in her radicular pain and numbness and tingling into the lower extremities. Her hemoglobin today is 9.3, Garnett catheter remains in place, patient will likely be transferred out of the ICU to a medical surgical floor today. WBC count is 10.5 hemoglobin 9.3 electrodes are normal renal profi le is normal. Bicarb is 19 Progress note dated 03/29/2023. 73-year-old female who went back to the operating room, after having surgery, to repair, a dural leak, in her lumbar spine. Unfortunately, the patient apparently was quite hypoxemic after the procedure, and they've had a large- volume asked her to aspiration. Seen today again one recovery, on the mechanical ventilator. She is on pressure assist control, with an inspiratory pressure of 22 cm water and inspiratory time of 1.1 seconds. Her rate is 20, her FiO2 was 100%, and a PEEP is 12. No gases been done as yet. She's also getting a bolus of lactated Ringer's, Eric-Synephrine pushes, and norepinephrine has been ordered. Anesthesiologist was placing an arterial line. I did speak to the surgeon, Dr. Duong. The patient will be transferred to the intensive care unit. The only labs from today include a glucose of 152, and a blood gas showing a pO2 of 53, pCO2 of 59, and a pH is 7.14. I'm not sure what settings the patient was on at that time. Chest x-ray shows bilateral consolidations, and infiltrative changes, which could be consistent with aspiration, and/or pulmonary edema. Progress note dated 03/30/2023. 73-year-old female who was seen in room 252, intensive care unit. She was seen yesterday, in the phase I recovery area, having had recent surgery for a dural tear. The patient unfortunately developed a high volume gastric aspiration, with respiratory failure, requiring intubation and mechanical ventilation. She's currently in the intensive care unit. She's on volume assist control, rate 32, tidal volume 400, FiO2 100%, PEEP of 15. Blood gases show pO2 123, a pCO2 44, and a pH is 7.22. The FiO2 was reduced down to 90%. In addition she is getting lactated Ringer's at 20 mL an hour, saline at KVO, Nimbex at 1 mcg/kg/m, norepinephrine at 25 mcg/m, vasopressin at 0.04 units per minute, prop ofol at 40 mcg/kg/m. The patient's on vancomycin and Rocephin. White count 15.8, hemoglobin 10, hematocrit 31.9, with a normal platelet count. Sodium 135, potassium 3.9, chlorides 108, CO2 15, anion gap 12, BUN 19, and creatinine 1.35. Magnesium is 2.2. Thus far, cultures are negative. Nasal swab was positive for staph aureus, not MRSA. Chest x-ray shows some bilateral airspace disease, which might be a bit improved, likely because of positive pressure ventilation. Progress note dated 03/31/2023. 73-year-old female seen in room 252. The patient was seen initially in consultation number of days ago, but we were reconsulted, a few days back. The patient headaches major lumbar procedure, and subsequently developed a dural leak. The patient went back to the operating room, for repair. Subsequent to that, she developed a large-volume aspiration, and is now developed acute respiratory failure, acute respiratory distress syndrome, and required intubation and mechanical ventilation. Currently, the patient is on volume assist control, rate 32, tidal volume 400, FiO2 is 60%, and PEEP of 15. Blood gases show pO2 172, pCO2 40, and a pH of 7.26. This is consistent with a mild metabolic acidosis. The patient's on a number drips including amiodarone at 0.5 mg/minute, vasopressin at 0.04 units per minute, norepinephrine at 14 mcg/m, propofol at 40 mcg/kg/m, Nimbex at 1.5 mcg/kg/m, and lactated Ringer's at 20 mL an hour. In addition, the patient's getting saline at KVO, and vital high protein at 20 mL an hour, with a goal of 32. White count 20.4, hemoglobin 8.6, hematocrit 26.5, and platelet count 283,000. Sodium 132, potassium 3.8, chlorides 109, CO2 17, BUN 24, and creatinine 1.57. Calcium is 6.9. Sputum was positive for Enterobacter cloaca, and Klebsiella oxytoca. Chest x-ray shows diffuse bilateral airspace disease. Progress note dated 04/01/2023. 73-year-old female seen in room 252. The patient remains on mechanical ventilator. She is on assist control, rate 32, tidal volume 400, FiO2 40%, and PEEP of 10. Blood gases show pO2 103, pCO2 36, and a pH is 7.31. The patient remains on lactated Ringer's at 20 mL an hour, vasopressin at 0.04 units per minute, norepinephrine at 8 mcg/m, propofol at 40 mcg/kg/m, and tube feedings, which are on hold. The patient is receiving vancomycin and cefepime. Sampling of the sputum was positive for Klebsiella and Enterobacter. White count 21.2, hemoglobin 7.8, hematocrit 23.5, within normal platelet count. Sodium 137, potassium 3.4, chlorides 110, CO2 17, anion gap 10, BUN 22, and creatinine 1.26. This electrolyte profile consistent with mild hypokalemia, and a non-anion gap metabolic acidosis. Calcium is 7.2. Chest x-ray shows diffuse bilateral infiltrates, largely unchanged from the prior x-ray. Objective - Vital Signs Vital signs: Vital Signs Temp 99.0 F 04/01/23 08:00 Pulse 77 04/01/23 10:00 Resp 36 H 04/01/23 10:00 BP 92/50 04/01/23 10:00 Pulse Ox 97 04/01/23 10:00 FiO2 40 04/01/23 08:00 Intake & Output 03/31/23 04/01/23 04/01/23 18:59 06:59 18:59 Intake Total 2371.586 762.976 326.108 Output Total 615 710 235 Balance 1756.586 52.976 91.108 Weight 101.2 kg 102.4 kg Intake: IV 240 240 80 Lactated Ringers 1,000 ml 240 240 80 @ 20 mls/hr IV .Q24H [facility] Rx#:[id number] Intake, IV Titration 1911.586 522.976 246.108 Amount Amiodarone 450 mg In 250 Dextrose 5% in Water 250 ml @ 0.5 MG/MIN 16.667 mls/hr IV .Q15H [facility] Rx#: [id number] Cefepime 2 gm In Sodium 100 Chloride 0.9% 100 ml @ 25 mls/hr IVPB Q8H [facility] Rx#: [id number] Cisatracurium 200 mg In 66.639 Sodium Chloride 0.9% 180 ml @ 2 MCG/KG/MIN 11.64 mls/hr IV .[id number] [facility] Rx #:[id number] Lactated Ringers 1,000 ml 220 20 @ 20 mls/hr IV .Q24H [facility] Rx#:[id number] Norepinephrine 32 mg In 82.707 75.793 Sodium Chloride 0.9% 218 ml @ 0.03 MCG/KG/MIN 1. 364 mls/hr IV .Q24H [facility] Rx#:[id number] Vancomycin 1,500 mg In 1000 Sodium Chloride 0.9% 500 ml 500 ml @ 167 mls/hr IVPB Q24H [facility] Rx#: [id number] Vasopressin 60 unit In 153 85.731 Sodium Chloride 0.9% 150 ml @ 0.04 UNITS/MIN 6.12 mls/hr IV .Q24H [facility] Rx#: [id number] cefTRIAXone 2 gm In 100 Sodium Chloride 0.9% 50 ml @ 100 mls/hr IVPB Q12HR [facility] Rx#:[id number] propofoL 1,000 mg In 189.24 252.976 84.584 Empty Bag 1 bag @ 15 MCG/ KG/MIN 8.73 mls/hr IV . [id number] [facility] Rx#:[id number] Tube Feeding 220 Output: Urine 615 710 235 Other: Voiding Method Indwelling Catheter Indwelling Catheter Indwelling Catheter ABP, PAP, CO, CI - Last Documented Arterial Blood Pressure 68/63 - Exam No acute distress, sedated, intubated, on 40% oxygen, with 10 of PEEP. HEENT examination is grossly unremarkable. Neck supple. Full range of motion. No adenopathy thyromegaly or neck vein distention. Cardiovascular examination reveals regular rhythm rate. S1-S2 normal. No S3 or S4. No discernible murmur noted. Heart rate 77 bpm. Lungs reveal scattered bilateral rhonchi. Breath sounds equal. Saturations are 97% Abdomen soft without bowel sounds. Extremities are intact. No cyanosis clubbing or edema. Skin is without rash or lesion. Neurologic examination cannot be assessed at this time. - Labs CBC & Chem 7: 04/01/23 03:37 04/01/23 03:37 Labs: Abnormal Lab Results - Last 24 Hours (Table) 03/31/23 03/31/23 03/31/23 Range/Units 11:52 17:10 23:53 WBC (3.8-10.6) k/uL RBC (3.80-5.40) m/uL Hgb (11.4-16.0) gm/dL Hct (34.0-46.0) % MCV (80.0-100.0) fL Neutrophils # (1.3-7.7) k/uL ABG pH (7.35-7.45) ABG HCO3 (21-25) mmol/L ABG O2 Saturation (94-97) % Potassium (3.5-5.1) mmol/L Chloride (98-107) mmol/L Carbon Dioxide (22-30) mmol/L BUN (7-17) mg/dL Creatinine (0.52-1.04) mg/dL Glucose (74-99) mg/dL POC Glucose (mg/dL) 177 H 184 H 195 H (70-110) mg/dL Calcium (8.4-10.2) mg/dL 04/01/23 04/01/23 04/01/23 Range/Units 03:37 03:37 05:07 WBC 21.2 H (3.8-10.6) k/uL RBC 2.29 L (3.80-5.40) m/uL Hgb 7.8 L (11.4-16.0) gm/dL Hct 23.5 L (34.0-46.0) % MCV 102.6 H (80.0-100.0) fL Neutrophils # 18.2 H (1.3-7.7) k/uL ABG pH 7.31 L (7.35-7.45) ABG HCO3 18 L (21-25) mmol/L ABG O2 Saturation 97.7 H (94-97) % Potassium 3.4 L (3.5-5.1) mmol/L Chloride 110 H (98-107) mmol/L Carbon Dioxide 17 L (22-30) mmol/L BUN 22 H (7-17) mg/dL Creatinine 1.26 H (0.52-1.04) mg/dL Glucose 159 H (74-99) mg/dL POC Glucose (mg/dL) (70-110) mg/dL Calcium 7.2 L (8.4-10.2) mg/dL 04/01/23 Range/Units 05:48 WBC (3.8-10.6) k/uL RBC (3.80-5.40) m/uL Hgb (11.4-16.0) gm/dL Hct (34.0-46.0) % MCV (80.0-100.0) fL Neutrophils # (1.3-7.7) k/uL ABG pH (7.35-7.45) ABG HCO3 (21-25) mmol/L ABG O2 Saturation (94-97) % Potassium (3.5-5.1) mmol/L Chloride (98-107) mmol/L Carbon Dioxide (22-30) mmol/L BUN (7-17) mg/dL Creatinine (0.52-1.04) mg/dL Glucose (74-99) mg/dL POC Glucose (mg/dL) 192 H (70-110) mg/dL Calcium (8.4-10.2) mg/dL Microbiology - Last 24 Hours (Table) 03/29/23 15:20 Blood Culture - Preliminary Blood 03/30/23 11:27 Urine Culture - Final Urine,Voided 03/29/23 15:00 Gram Stain - Final Sputum Sputum Culture - Final Enterobacter cloacae Klebsiella oxytoca Assessment and Plan Assessment: Acute hypoxemic respiratory failure, requiring intubation and mechanical ventilation, subsequent to repair of a dural tear, secondary to a large-volume gastric aspiration. S/P intubation and mechanical ventilation, for respiratory failure, 03/29/2023. Acute respiratory distress syndrome. Enterobacter and Klebsiella pneumonia. Acute development of atrial fibrillation with RVR. Lumbar spondylosis and spondylolisthesis, status post postop day #11, T10 to pelvic decompression and fusion. Severe hypotension, likely secondary to sepsis, currently on norepinephrine and vasopressin. Non-anion gap metabolic acidosis. History of lumbar radiculopathy. Type 2 diabetes mellitus. Benign essential hypertension. History of hyperlipidemia. Plan: Plan dated 03/29/2023. I did speak to the surgeon about this patient. Patient will be given a bed in the intensive care unit. We switch the patient to volume assist control mode, rate 20, tidal volume 350, 100%, and PEEP of 10. Blood gas will be done 30 minutes after the switch to volume assist control. Additional changes and mechanical ventilation, will be made after the blood gas. The patient is started on norepinephrine, for blood pressure support. She's also given 2 L of lactated Ringer's. Anesthesiology was placing an arterial line, and I think they were planning to place a central line as well. Additional recommendations and suggestions are forthcoming. Labs, will be reviewed. Medications will be reviewed. X-rays have been reviewed. Prognosis is guarded. Plan dated 03/30/2023. The patient's currently on vasopressin and norepinephrine, for blood pressure support. In addition, the patient is on propofol for sedation, and Nimbex, for chemical paralysis. The patient's on vancomycin and Rocephin. Cultures are thus far negative or pending. Chest x-rays a bit improved, likely secondary to positive pressure ventilation. The FiO2 was dropped from 100%, down to 90%. We will order a flat plate of the abdomen. If okay, we will begin tube feedings. No additional recommendations are made. I did speak to the orthopedic surgeon. The patient's overall prognosis remains very guarded at this point. She is obviously quite ill. Labs, x-rays, and medications are all reviewed. Plan dated 03/31/2023. The patient remains very critically ill, with a very tenuous respiratory and hemodynamic status. Labs, x-rays, and medications are reviewed. The patient r emains on both vasopressin and norepinephrine for blood pressure support. The patient developed atrial fibrillation with RVR, and is currently on amiodarone. The patient remains on propofol, and Nimbex. Tube feedings are running at 20 mL an hour. The patient's FiO2 will be reduced down to 50%. We'll attempt to wean the patient off of Nimbex. We had Dilaudid, every 2 hours, for pain control. Labs, x-rays, medications are reviewed. We will continue to follow. I did give an update to the orthopedic surgeon today. Prognosis is certainly guarded. Plan dated 04/01/2023. The patient's overall situation has improved overnight. The patient is been weaned down to 40% oxygen, and 10 of PEEP. Gases are very reasonable. The patient remains on vasopressin and norepinephrine. The patient's getting propofol for sedation. Tube feedings on hold, because of high residuals. I've asked the nurses to resume tube feedings, at a low rate, 5 or 10 mL per hour. The patient continues on vancomycin and cefepime. Sputum sampling was positive for both Klebsiella and Enterobacter. Labs, x-rays, and medications are reviewed. We will continue to follow the patient make recommendations along the way. Prognosis remains guarded. Time with Patient: Greater than 30
--- NOTE | 2023-04-01 11:20 | P.PN ---
Progress Note - Text Progress Note Date: 04/01/23 Patient remains clinically unchanged. She's had no significant bowel function. On exam vital signs appear stable. Abdomen soft obese mildly distended. Patient Linh on the ventilator. Ileus. Patient will be given another 30 mL of lactulose today. We will add Reglan 10 mg IV every 6.
[2023-04-01 11:41] LABS: Glucose,Whole Blood 191 mg/dL (70-110)
[2023-04-01] MEDS: METOCLOPRAMIDE 5 MG/ML 2 ML VIAL IVP SCH ×2 (11:51→17:27)
[2023-04-01] MEDS: VANCOMYCIN 1,500 MG in SODIUM CHLORIDE 0.9% 500 ML 500 ML IVPB SCH (11:51)
[2023-04-01] MEDS: CEFEPIME 2 GM in SODIUM CHLORIDE 0.9% 100 ML IVPB SCH (11:52)
[2023-04-01] MEDS ORDERED: POTASSIUM BICARBONATE/CIT AC 20 MEQ TABLET.EFF NG-TUBE SCH (12:00)
--- NOTE | 2023-04-01 12:00 | P.PN ---
Subjective Progress Note Date: 04/01/23 Principal diagnosis: Lumbar degenerative scoliosis LE weakness LE radiculopathy Pt s/e this AM with nursing and at bedside. Clinically, she is doing better and is coming down on her presser and PEEP requirements to maintain her current vitals. She was rolled last night, but did not tolerate it well and her sats dropped. What was visible was a clean and dry dressing. CXR is reviewed today and is slightly improved from yesterday with still diffuse infiltrates and changes. No other complicating process seen. Labs reviewed. Her WBC is still elevated likely due to no stool passage and lungs, her HgB and Hct have dropped from 10.1 hgb to 7.8 and a Hct of only 23. She may need transfusion to help maintain BP and to increase these. She could be partially dilutional. No fevers. ID, PCC, Gen surg and Med notes reviewed. Spoke with medicine. Objective - Vital Signs Vital signs: Vital Signs Temp 99.0 F 04/01/23 08:00 Pulse 74 04/01/23 11:40 Resp 36 H 04/01/23 11:15 BP 102/39 04/01/23 11:15 Pulse Ox 97 04/01/23 11:15 FiO2 40 04/01/23 11:32 Intake & Output 03/31/23 04/01/23 04/01/23 18:59 06:59 18:59 Intake Total 2371.586 762.976 417.676 Output Total 615 710 235 Balance 1756.586 52.976 182.676 Weight 101.2 kg 102.4 kg Intake: IV 240 240 80 Lactated Ringers 1,000 ml 240 240 80 @ 20 mls/hr IV .Q24H [facility] Rx#:[id number] Intake, IV Titration 1911.586 522.976 337.676 Amount Amiodarone 450 mg In 250 Dextrose 5% in Water 250 ml @ 0.5 MG/MIN 16.667 mls/hr IV .Q15H [facility] Rx#: [id number] Cefepime 2 gm In Sodium 100 Chloride 0.9% 100 ml @ 25 mls/hr IVPB Q8H [facility] Rx#: [id number] Cisatracurium 200 mg In 66.639 Sodium Chloride 0.9% 180 ml @ 2 MCG/KG/MIN 11.64 mls/hr IV .[id number] [facility] Rx #:[id number] Lactated Ringers 1,000 ml 220 20 @ 20 mls/hr IV .Q24H [facility] Rx#:[id number] Norepinephrine 32 mg In 82.707 75.793 Sodium Chloride 0.9% 218 ml @ 0.03 MCG/KG/MIN 1. 364 mls/hr IV .Q24H [facility] Rx#:[id number] Vancomycin 1,500 mg In 1000 Sodium Chloride 0.9% 500 ml 500 ml @ 167 mls/hr IVPB Q24H [facility] Rx#: [id number] Vasopressin 60 unit In 153 85.731 Sodium Chloride 0.9% 150 ml @ 0.04 UNITS/MIN 6.12 mls/hr IV .Q24H [facility] Rx#: [id number] cefTRIAXone 2 gm In 100 Sodium Chloride 0.9% 50 ml @ 100 mls/hr IVPB Q12HR [facility] Rx#:[id number] propofoL 1,000 mg In 189.24 252.976 176.152 Empty Bag 1 bag @ 15 MCG/ KG/MIN 8.73 mls/hr IV . [id number] [facility] Rx#:[id number] Tube Feeding 220 Output: Urine 615 710 235 Other: Voiding Method Indwelling Catheter Indwelling Catheter Indwelling Catheter ABP, PAP, CO, CI - Last Documented Arterial Blood Pressure 68/63 - Exam Vented, Sedated. Not following commands. PEERL Abdomen is soft but slightly distended she has yet to have BM. Edema improved. Diaphoretic Neg Babinski Neg Cardona's No Clonus Dressing CDI Low back - Labs CBC & Chem 7: 04/01/23 03:37 04/01/23 09:57 Labs: Abnormal Lab Results - Last 24 Hours (Table) 03/31/23 03/31/23 03/31/23 Range/Units 11:52 17:10 23:53 WBC (3.8-10.6) k/uL RBC (3.80-5.40) m/uL Hgb (11.4-16.0) gm/dL Hct (34.0-46.0) % MCV (80.0-100.0) fL Neutrophils # (1.3-7.7) k/uL ABG pH (7.35-7.45) ABG HCO3 (21-25) mmol/L ABG O2 Saturation (94-97) % Potassium (3.5-5.1) mmol/L Chloride (98-107) mmol/L Carbon Dioxide (22-30) mmol/L BUN (7-17) mg/dL Creatinine (0.52-1.04) mg/dL Glucose (74-99) mg/dL POC Glucose (mg/dL) 177 H 184 H 195 H (70-110) mg/dL Calcium (8.4-10.2) mg/dL 04/01/23 04/01/23 04/01/23 Range/Units 03:37 03:37 05:07 WBC 21.2 H (3.8-10.6) k/uL RBC 2.29 L (3.80-5.40) m/uL Hgb 7.8 L (11.4-16.0) gm/dL Hct 23.5 L (34.0-46.0) % MCV 102.6 H (80.0-100.0) fL Neutrophils # 18.2 H (1.3-7.7) k/uL ABG pH 7.31 L (7.35-7.45) ABG HCO3 18 L (21-25) mmol/L ABG O2 Saturation 97.7 H (94-97) % Potassium 3.4 L (3.5-5.1) mmol/L Chloride 110 H (98-107) mmol/L Carbon Dioxide 17 L (22-30) mmol/L BUN 22 H (7-17) mg/dL Creatinine 1.26 H (0.52-1.04) mg/dL Glucose 159 H (74-99) mg/dL POC Glucose (mg/dL) (70-110) mg/dL Calcium 7.2 L (8.4-10.2) mg/dL 04/01/23 04/01/23 Range/Units 05:48 11:39 WBC (3.8-10.6) k/uL RBC (3.80-5.40) m/uL Hgb (11.4-16.0) gm/dL Hct (34.0-46.0) % MCV (80.0-100.0) fL Neutrophils # (1.3-7.7) k/uL ABG pH (7.35-7.45) ABG HCO3 (21-25) mmol/L ABG O2 Saturation (94-97) % Potassium (3.5-5.1) mmol/L Chloride (98-107) mmol/L Carbon Dioxide (22-30) mmol/L BUN (7-17) mg/dL Creatinine (0.52-1.04) mg/dL Glucose (74-99) mg/dL POC Glucose (mg/dL) 192 H 191 H (70-110) mg/dL Calcium (8.4-10.2) mg/dL Microbiology - Last 24 Hours (Table) 03/29/23 15:20 Blood Culture - Preliminary Blood 03/30/23 11:27 Urine Culture - Final Urine,Voided 03/29/23 15:00 Gram Stain - Final Sputum Sputum Culture - Final Enterobacter cloacae Klebsiella oxytoca - Imaging and Cardiology Chest x-ray: report reviewed, image reviewed Assessment and Plan Assessment: 73 yo female with degenerative lumbar scoliosis surgery 03/21/23 and 03/29/23 POD 11 and 3 from lumbar decompression fusion T10-P with revision dural repair due to dural erosion ARF, Likely aspiration event during 03/29/23 surgery, possibly on intubation DMII, poor control, Gastorparesis Complex medical patient Plan: -Cont heritage consultant and team management. Notes reviewed from PCC, MED, [facility], ID. PCC and Medicine primary ICU mgt. Vent and meds, pressers per ICU team. -Activity: Bedrest currently. Turn q2. Check dressing regularly. Elevate heels. Dickens boots. PT to move legs and arms to decrease edema. OK For HOB 15-20 deg. -Pain control: Vented, sedated -Meds: [reviewed] -GI ppx: More aggressive bowel control. She has had enemax2, Suppository, Senna, Miralax, Lactulose, Reglan, Mag Citrate. Awaiting BM. -Garnett catheter, con change per protocol -DVT PPX: Mechanical, OK to restart Chemo ppx tonight 24 hr post op -Cont Enteral feeds -Hygiene: Maintain dressing clean and dry. Meticulous cleaning after BMs away from incision site -No drain -Dispo: [Pending]
--- NOTE | 2023-04-01 13:27 | P.PN ---
Subjective Progress Note Date: 04/01/23 Pts pressor req improved to vasopressin 0.4 and 0.07 levophed. Saturating better on 40% FiO2 , 10 PEEP. CVP is 13-14. Converted to NSR, off of amio. Gen: awake, alert HEENT: normocephalic, atraumatic, good hearing acuity, moist mucous membranes Resp: good air exchange, breathing comfortably with no accessory muscle use CVS: good distal perfusion x 4, GI: soft, NTTP, ND : no SPT, no CVAT, archuleta catheter is present MSK: no pitting edema, no clubbing Neuro: non-focal, moving all extremities Psych: cooperative, euthymic mood Hospital course: Patient is a 72-year-old female with dyslipidemia, hypertension, iuz-hrsvkjy-ssyjyjwhi diabetes mellitus type 2 who presented for elective T10 to pelvis decompression and fusion. Assessment: 72-year-old female status post T10 to pelvis decompression with fusion Increase drainage from surgical incision s/p CSF repair on 03/29 - [facility] note reviewed. Monitoring drainage, abdominal binder, and fioricet. Shock, Septic Multi-focal pneumonia Ventilator Dependent Acute Hypoxemic and Hypercarbic Respiratory Failure -Continue levophed, vasopressin -Continue vancomycin, cefepime, apprecaite ID input - discussed with them on 04/01 -continue propofol -Bowel regimen will be added: miralax, senokot-S, bisacodyl suppository, reglan IV, lactulose, repeat suppository today, repeat enema today Acute blood loss anemia -Anticipated outcome of surgery -Follow CBC -Ferrous sulfate 325 mg daily- once daily regiment has showen to be as effective as more frequent dosing in improving iron stores, but is associated with less side effects. Diabetes mellitus type 2 -Hold metformin -Sliding-scale insulin -Follow blood sugars Dyslipidemia -Gemfibrozil Hypertension -Lisinopril 30 mg daily, continue to hold her Lisinopril/hydrochlorothiazide - follow BP DVT prophylaxis: Heparin Thank you for allowing us to participate in the care of this pleasant patient. Do not hesitate to contact us with questions. Someone can be reached from the [facility] hospitalist group all hours of the day at [phone] or via perfect serve. Objective - Vital Signs Vital signs: Vital Signs Temp 99.0 F 04/01/23 08:00 Pulse 74 07/29/23 11:40 Resp 36 H 04/01/23 11:15 BP 102/39 04/01/23 11:15 Pulse Ox 97 04/01/23 11:15 FiO2 40 04/01/23 11:32 Intake & Output 03/31/23 04/01/23 04/01/23 18:59 06:59 18:59 Intake Total 2371.586 762.976 417.676 Output Total 615 710 235 Balance 1756.586 52.976 182.676 Weight 101.2 kg 102.4 kg Intake: IV 240 240 80 Lactated Ringers 1,000 ml 240 240 80 @ 20 mls/hr IV .Q24H [facility] Rx#:[id number] Intake, IV Titration 1911.586 522.976 337.676 Amount Amiodarone 450 mg In 250 Dextrose 5% in Water 250 ml @ 0.5 MG/MIN 16.667 mls/hr IV .Q15H [facility] Rx#: [id number] Cefepime 2 gm In Sodium 100 Chloride 0.9% 100 ml @ 25 mls/hr IVPB Q8H [facility] Rx#: [id number] Cisatracurium 200 mg In 66.639 Sodium Chloride 0.9% 180 ml @ 2 MCG/KG/MIN 11.64 mls/hr IV .[id number] [facility] Rx #:[id number] Lactated Ringers 1,000 ml 220 20 @ 20 mls/hr IV .Q24H [facility] Rx#:[id number] Norepinephrine 32 mg In 82.707 75.793 Sodium Chloride 0.9% 218 ml @ 0.03 MCG/KG/MIN 1. 364 mls/hr IV .Q24H [facility] Rx#:[id number] Vancomycin 1,500 mg In 1000 Sodium Chloride 0.9% 500 ml 500 ml @ 167 mls/hr IVPB Q24H [facility] Rx#: [id number] Vasopressin 60 unit In 153 85.731 Sodium Chloride 0.9% 150 ml @ 0.04 UNITS/MIN 6.12 mls/hr IV .Q24H [facility] Rx#: [id number] cefTRIAXone 2 gm In 100 Sodium Chloride 0.9% 50 ml @ 100 mls/hr IVPB Q12HR [facility] Rx#:[id number] propofoL 1,000 mg In 189.24 252.976 176.152 Empty Bag 1 bag @ 15 MCG/ KG/MIN 8.73 mls/hr IV . [id number] [facility] Rx#:[id number] Tube Feeding 220 Output: Urine 615 710 235 Other: Voiding Method Indwelling Catheter Indwelling Catheter Indwelling Catheter ABP, PAP, CO, CI - Last Documented Arterial Blood Pressure 68/63 - Labs CBC & Chem 7: 04/01/23 03:37 04/01/23 09:57 Labs: Abnormal Lab Results - Last 24 Hours (Table) 03/31/23 03/31/23 04/01/23 Range/Units 17:10 23:53 03:37 WBC (3.8-10.6) k/uL RBC (3.80-5.40) m/uL Hgb (11.4-16.0) gm/dL Hct (34.0-46.0) % MCV (80.0-100.0) fL Neutrophils # (1.3-7.7) k/uL ABG pH (7.35-7.45) ABG HCO3 (21-25) mmol/L ABG O2 Saturation (94-97) % Potassium 3.4 L (3.5-5.1) mmol/L Chloride 110 H (98-107) mmol/L Carbon Dioxide 17 L (22-30) mmol/L BUN 22 H (7-17) mg/dL Creatinine 1.26 H (0.52-1.04) mg/dL Glucose 159 H (74-99) mg/dL POC Glucose (mg/dL) 184 H 195 H (70-110) mg/dL Calcium 7.2 L (8.4-10.2) mg/dL 04/01/23 04/01/23 04/01/23 Range/Units 03:37 05:07 05:48 WBC 21.2 H (3.8-10.6) k/uL RBC 2.29 L (3.80-5.40) m/uL Hgb 7.8 L (11.4-16.0) gm/dL Hct 23.5 L (34.0-46.0) % MCV 102.6 H (80.0-100.0) fL Neutrophils # 18.2 H (1.3-7.7) k/uL ABG pH 7.31 L (7.35-7.45) ABG HCO3 18 L (21-25) mmol/L ABG O2 Saturation 97.7 H (94-97) % Potassium (3.5-5.1) mmol/L Chloride (98-107) mmol/L Carbon Dioxide (22-30) mmol/L BUN (7-17) mg/dL Creatinine (0.52-1.04) mg/dL Glucose (74-99) mg/dL POC Glucose (mg/dL) 192 H (70-110) mg/dL Calcium (8.4-10.2) mg/dL 04/01/23 Range/Units 11:39 WBC (3.8-10.6) k/uL RBC (3.80-5.40) m/uL Hgb (11.4-16.0) gm/dL Hct (34.0-46.0) % MCV (80.0-100.0) fL Neutrophils # (1.3-7.7) k/uL ABG pH (7.35-7.45) ABG HCO3 (21-25) mmol/L ABG O2 Saturation (94-97) % Potassium (3.5-5.1) mmol/L Chloride (98-107) mmol/L Carbon Dioxide (22-30) mmol/L BUN (7-17) mg/dL Creatinine (0.52-1.04) mg/dL Glucose (74-99) mg/dL POC Glucose (mg/dL) 191 H (70-110) mg/dL Calcium (8.4-10.2) mg/dL Microbiology - Last 24 Hours (Table) 03/29/23 15:20 Blood Culture - Preliminary Blood 03/30/23 11:27 Urine Culture - Final Urine,Voided
--- NOTE | 2023-04-01 14:02 | P.PN ---
Subjective Progress Note Date: 04/01/23 Principal diagnosis: Sepsis/pneumonia Patient is a 73-year-old female electively admitted to the hospital 03/21/2023 and this patient who is s/p extensive thoracolumbar spine surgery in this patient who is status post L2-L5 deformity correction did have a L2-S1 interbody fusion and T10-L2 posterior lateral instrumented fusion,patient did have postoperative CSF leak status post complex T10 posterior decompression fusion with dural repair postoperatively the patient did have a respiratory distress requiring intubation and admission to the ICU. On today's evaluation that is 04/01/2023, patient did have improvement in the fever pattern with a low-grade fever of 99.8 at noon, patient is currently on 40% FiO2 no significant purulent secretions through the ET diarrhea or any other changes reported by the nursing staff Patient did have white count of 21.2 with a left shift, slightly higher than yesterday of 20,000, patient did have a creatinine 1.26, blood cultures are negative so far sputum grew Klebsiella and Enterobacter Objective - Vital Signs Vital signs: Vital Signs Temp 99.0 F 04/01/23 08:00 Pulse 74 04/01/23 11:40 Resp 36 H 04/01/23 11:15 BP 102/39 04/01/23 11:15 Pulse Ox 97 04/01/23 11:15 FiO2 40 04/01/23 11:32 Intake & Output 03/31/23 04/01/23 04/01/23 18:59 06:59 18:59 Intake Total 2371.586 762.976 417.676 Output Total 615 710 235 Balance 1756.586 52.976 182.676 Weight 101.2 kg 102.4 kg Intake: IV 240 240 80 Lactated Ringers 1,000 ml 240 240 80 @ 20 mls/hr IV .Q24H [facility] Rx#:[id number] Intake, IV Titration 1911.586 522.976 337.676 Amount Amiodarone 450 mg In 250 Dextrose 5% in Water 250 ml @ 0.5 MG/MIN 16.667 mls/hr IV .Q15H [facility] Rx#: [id number] Cefepime 2 gm In Sodium 100 Chloride 0.9% 100 ml @ 25 mls/hr IVPB Q8H [facility] Rx#: [id number] Cisatracurium 200 mg In 66.639 Sodium Chloride 0.9% 180 ml @ 2 MCG/KG/MIN 11.64 mls/hr IV .[id number] [facility] Rx #:[id number] Lactated Ringers 1,000 ml 220 20 @ 20 mls/hr IV .Q24H [facility] Rx#:[id number] Norepinephrine 32 mg In 82.707 75.793 Sodium Chloride 0.9% 218 ml @ 0.03 MCG/KG/MIN 1. 364 mls/hr IV .Q24H [facility] Rx#:[id number] Vancomycin 1,500 mg In 1000 Sodium Chloride 0.9% 500 ml 500 ml @ 167 mls/hr IVPB Q24H [facility] Rx#: [id number] Vasopressin 60 unit In 153 85.731 Sodium Chloride 0.9% 150 ml @ 0.04 UNITS/MIN 6.12 mls/hr IV .Q24H [facility] Rx#: [id number] cefTRIAXone 2 gm In 100 Sodium Chloride 0.9% 50 ml @ 100 mls/hr IVPB Q12HR [facility] Rx#:[id number] propofoL 1,000 mg In 189.24 252.976 176.152 Empty Bag 1 bag @ 15 MCG/ KG/MIN 8.73 mls/hr IV . [id number] [facility] Rx#:[id number] Tube Feeding 220 Output: Urine 615 710 235 Other: Voiding Method Indwelling Catheter Indwelling Catheter Indwelling Catheter ABP, PAP, CO, CI - Last Documented Arterial Blood Pressure 68/63 - Exam GENERAL DESCRIPTION: An elderly female intubated on the vent RESPIRATORY SYSTEM: Unlabored breathing , decreased breath sounds at bases HEART: S1 S2 regular rate and rhythm , ABDOMEN: Soft , no tenderness EXTREMITIES: Bilateral lower extremity swelling no redness - Labs CBC & Chem 7: 04/01/23 03:37 04/01/23 09:57 Labs: Abnormal Lab Results - Last 24 Hours (Table) 03/31/23 03/31/23 04/01/23 Range/Units 17:10 23:53 03:37 WBC (3.8-10.6) k/uL RBC (3.80-5.40) m/uL Hgb (11.4-16.0) gm/dL Hct (34.0-46.0) % MCV (80.0-100.0) fL Neutrophils # (1.3-7.7) k/uL ABG pH (7.35-7.45) ABG HCO3 (21-25) mmol/L ABG O2 Saturation (94-97) % Potassium 3.4 L (3.5-5.1) mmol/L Chloride 110 H (98-107) mmol/L Carbon Dioxide 17 L (22-30) mmol/L BUN 22 H (7-17) mg/dL Creatinine 1.26 H (0.52-1.04) mg/dL Glucose 159 H (74-99) mg/dL POC Glucose (mg/dL) 184 H 195 H (70-110) mg/dL Calcium 7.2 L (8.4-10.2) mg/dL 04/01/23 04/01/23 04/01/23 Range/Units 03:37 05:07 05:48 WBC 21.2 H (3.8-10.6) k/uL RBC 2.29 L (3.80-5.40) m/uL Hgb 7.8 L (11.4-16.0) gm/dL Hct 23.5 L (34.0-46.0) % MCV 102.6 H (80.0-100.0) fL Neutrophils # 18.2 H (1.3-7.7) k/uL ABG pH 7.31 L (7.35-7.45) ABG HCO3 18 L (21-25) mmol/L ABG O2 Saturation 97.7 H (94-97) % Potassium (3.5-5.1) mmol/L Chloride (98-107) mmol/L Carbon Dioxide (22-30) mmol/L BUN (7-17) mg/dL Creatinine (0.52-1.04) mg/dL Glucose (74-99) mg/dL POC Glucose (mg/dL) 192 H (70-110) mg/dL Calcium (8.4-10.2) mg/dL 04/01/23 Range/Units 11:39 WBC (3.8-10.6) k/uL RBC (3.80-5.40) m/uL Hgb (11.4-16.0) gm/dL Hct (34.0-46.0) % MCV (80.0-100.0) fL Neutrophils # (1.3-7.7) k/uL ABG pH (7.35-7.45) ABG HCO3 (21-25) mmol/L ABG O2 Saturation (94-97) % Potassium (3.5-5.1) mmol/L Chloride (98-107) mmol/L Carbon Dioxide (22-30) mmol/L BUN (7-17) mg/dL Creatinine (0.52-1.04) mg/dL Glucose (74-99) mg/dL POC Glucose (mg/dL) 191 H (70-110) mg/dL Calcium (8.4-10.2) mg/dL Microbiology - Last 24 Hours (Table) 03/29/23 15:20 Blood Culture - Preliminary Blood 03/30/23 11:27 Urine Culture - Final Urine,Voided 03/29/23 15:00 Gram Stain - Final Sputum Sputum Culture - Final Enterobacter cloacae Klebsiella oxytoca Assessment and Plan (1) Sepsis Current Visit: Yes Status: Acute Code(s): A41.9 - SEPSIS, UNSPECIFIED ORGANISM SNOMED Code(s): 25309276 (2) Gram-negative pneumonia Current Visit: Yes Status: Acute Code(s): J15.6 - PNEUMONIA DUE TO OTHER GRAM-NEGATIVE BACTERIA SNOMED Code(s): 857095814 (3) Leukocytosis Current Visit: Yes Status: Acute Code(s): D72.829 - ELEVATED WHITE BLOOD CELL COUNT, UNSPECIFIED SNOMED Code(s): 218271876 Plan: 1patient with a sepsis/septic shock in this patient with fever elevated white count hypertension tachycardia is source likely aspiration pneumonia likely gram-negative with a sputum currently growing Klebsiella and Enterobacter with some resistant pattern, patient did have a CSF leak and did have extensive T10- S1 spine surgery underlying meningitis less likely but not entirely excluded 2-patient to continue with the current antibiotic treatment of cefepime and vancomycin pending finalization of the cultures and stabilization of the clinical condition Prognosis remains to be guarded at the bedside questions were answered Dictation was produced using [employer] software. please excuse any grammatical, word or spelling errors. Time with Patient: Greater than 30
[2023-04-01] MEDS: fentaNYL (PF). 1,000 MCG in SODIUM CHLORIDE 0.9% 80 ML IV SCH ×2 (14:59→20:42)
[2023-04-01] MEDS: CISATRACURIUM 200 MG in SODIUM CHLORIDE 0.9% 180 ML IV SCH (15:01)
[2023-04-01] MEDS: bisacodyL 10 MG SUPP RECTAL PRN (15:33)
[2023-04-01] MEDS: VASOPRESSIN 60 UNIT in SODIUM CHLORIDE 0.9% 150 ML IV SCH (17:28)
[2023-04-01 17:29] LABS: Glucose,Whole Blood 190 mg/dL (70-110)
[2023-04-01] MEDS: NOREPINEPHRINE 32 MG in SODIUM CHLORIDE 0.9% 218 ML IV SCH (21:13)
[2023-04-02] LABS: Glucose,Whole Blood 185 mg/dL (70-110)
[2023-04-02] MEDS: IPRATROPIUM-ALBUTEROL 3 ML NEB INHALATION SCH ×6 (00:03→20:20)
[2023-04-02] MEDS: METOCLOPRAMIDE 5 MG/ML 2 ML VIAL IVP SCH ×4 (00:12→17:41)
[2023-04-02] MEDS: CEFEPIME 2 GM in SODIUM CHLORIDE 0.9% 100 ML IVPB SCH ×2 (00:13→11:05)
[2023-04-02] MEDS: HYDROmorphone 1 MG/ML 1 ML SYRINGE IVP SCH ×6 (00:13→20:49)
[2023-04-02] MEDS: INSULIN ASPART (NovoLOG) 100 UNIT/ML VIAL SQ SCH ×4 (00:14→18:41)
[2023-04-02] MEDS: fentaNYL (PF). 1,000 MCG in SODIUM CHLORIDE 0.9% 80 ML IV SCH ×6 (02:25→22:09)
[2023-04-02 04:18] LABS: African American GFR (CKD) 70 (>60 ml/min/1.73 sqM); Anion Gap 10 mmol/L; Blood Urea Nitrogen 18 mg/dL (7-17); Calcium 7.4 mg/dL (8.4-10.2); Carbon Dioxide 17 mmol/L (22-30); Chloride 112 mmol/L (98-107); Glucose 169 mg/dL (74-99); Non-African American GFR(CKD) 61 (>60 ml/min/1.73 sqM); Potassium 3.9 mmol/L (3.5-5.1); Sodium 139 mmol/L (137-145)
[2023-04-02 04:42] LABS: Basophils # (A) 0.1 k/uL (0-0.2); Basophils % (A) 0 %; Eosinophils # (A) 0.7 k/uL (0-0.7); Eosinophils % (A) 5 %; HCT 22.2 % (34.0-46.0); HGB 7.4 gm/dL (11.4-16.0); Hypochromasia Marked; Lymphocytes # (A) 1.7 k/uL (1.0-4.8); Lymphocytes % (A) 10 %; MCH 34.3 pg (25.0-35.0); MCHC 33.2 g/dL (31.0-37.0); MCV 103.3 fL (80.0-100.0); Macrocytosis Slight; Mean Platelet Volume 8.7; Monocytes # (A) 0.4 k/uL (0-1.0); Monocytes % (A) 2 %; Neutrophils # (A) 12.9 k/uL (1.3-7.7); Neutrophils % (A) 81 %; Platelet Count 190 k/uL (150-450); Poikilocytosis Slight; RBC 2.15 m/uL (3.80-5.40); RDW 15.2 % (11.5-15.5); WBC 15.8 k/uL (3.8-10.6)
[2023-04-02] MEDS ORDERED: POTASSIUM BICARBONATE/CIT AC 20 MEQ TABLET.EFF NG-TUBE SCH (06:00)
[2023-04-02 06:10] LABS: Glucose,Whole Blood 183 mg/dL (70-110)
--- NOTE | 2023-04-02 06:50 | XR ---
EXAMINATION TYPE: XR chest 1V portable DATE OF EXAM: 04/02/2023 5:26 AM COMPARISON: Chest radiographs from 04/01/2023 TECHNIQUE: XR chest 1V portable Frontal view of the chest. CLINICAL INDICATION:Female, 73 years old with history of Tube placement; FINDINGS: Lungs/Pleura: Similar multifocal airspace opacities. No evidence of pneumothorax or pleural effusion. Pulmonary vascularity: Unremarkable. Heart/mediastinum: Cardiomediastinal silhouette is enlarged and stable. Musculoskeletal: No acute osseous pathology. There is lower spine fixation hardware is present. Other findings: None Lines/Tubes: Endotracheal tube with distal tip 5.8 cm above the mercy. Nasogastric tube with its distal tip and side-port projecting under the diaphragm. Right internal jugular central venous catheter with distal tip at the cavoatrial junction. IMPRESSION: Similar patchy airspace opacities throughout the lungs. Support line and tubes in place.
[2023-04-02] MEDS: polyethylene glycoL 3350 17 GM POWD.PACK PO SCH (07:29)
[2023-04-02] MEDS: PANTOPRAZOLE 40 MG/10 ML VIAL IV SCH (07:30)
[2023-04-02] MEDS: acetaZOLAMIDE 250 MG TAB PO SCH (07:30)
[2023-04-02] MEDS: CHLORHEXIDINE GLUCONATE 15 ML CUP MUCOUS MEM SCH ×2 (07:30→20:49)
[2023-04-02] MEDS: SENNOSIDES-DOCUSATE SODIUM 1 EACH TAB PO SCH ×2 (07:30→22:29)
[2023-04-02] MEDS: CISATRACURIUM 200 MG in SODIUM CHLORIDE 0.9% 180 ML IV SCH ×2 (08:02→11:59)
[2023-04-02] MEDS: METOPROLOL TARTRATE 12.5 MG TAB PO SCH ×2 (08:35→22:29)
[2023-04-02] MEDS ORDERED: LACTULOSE 20 GM/30 ML CUP PO ONE ×2 (09:00→17:23)
[2023-04-02] MEDS ORDERED: FUROSEMIDE 10 MG/ML 4 ML VIAL IV STA (09:32)
[2023-04-02] MEDS: LACTATED RINGERS 1,000 ML IV SCH (09:45)
[2023-04-02 09:50] LABS: ABG Base Excess -8.2 mmol/L; ABG HCO3 18 mmol/L (21-25); ABG Oxygen Saturation 96.3 % (94-97); ABG PCO2 36 mmHg (35-45); ABG PH 7.31 (7.35-7.45); ABG PO2 82 mmHg (83-108); ABG TCO2 19 mmol/L (19-24); Allen Test Performed? Yes
--- NOTE | 2023-04-02 10:04 | PCN ---
PROCEDURE NOTE PROCEDURE: Right femoral arterial line. PREOPERATIVE DIAGNOSES: Frequent blood draws, blood gas monitoring, hypotension. POSTOPERATIVE DIAGNOSES: Frequent blood draws, blood gas monitoring, hypotension. CO-SURGEON: Dr. Strauss. There was informed consent and universal timeout. ARTERIAL LINE PLACEMENT: Indications: Hemodynamic monitoring. A time-out was completed verifying correct patient, procedure, site, positioning, and implant(s) or special equipment if applicable. Pradip's test was performed to ensure adequate perfusion. The patient's right/left wrist or right/left groin was prepped and draped in sterile fashion. 1% Lidocaine was used to anesthetize the area. An 18G Arrow arterial line was introduced into the radial/femoral artery. The catheter was threaded over the guide wire and the needle was removed with appropriate pulsatile blood return. Blood loss was minimal. The catheter was then sutured in place to the skin and a sterile dressing applied by the nurse. Perfusion to the extremity distal to the point of catheter insertion was checked and found to be adequate. We did a right femoral arterial line. There was good blood return and waveform. The patient tolerated the procedure well and there was no immediate complication. MMODL / IJN: [id number] /
[2023-04-02] MEDS ORDERED: DEXTROSE 5% IN WATER 100 ML with AMIODARONE 150 MG IV ONE (10:15)
[2023-04-02] MEDS ORDERED: AMIODARONE 360 MG in DEXTROSE 5% IN WATER 200 ML IV ONE ×2 (10:30)
--- NOTE | 2023-04-02 10:34 | P.PN ---
Progress Note - Text Progress Note Date: 04/02/23 The patient remains clinically unchanged. She still has had no further bowel movements. On exam vital signs appear stable. Abdomen is soft distended. Patient is on the ventilator. Patient has a prolonged ileus. Patient will have 30 mL of lactulose given down the NG tube twice today. She will remain on Reglan. We will obtain x-ray of the abdomen in the morning
--- NOTE | 2023-04-02 10:37 | P.PN ---
Subjective Progress Note Date: 04/02/23 Principal diagnosis: Respiratory failure. I am seeing this patient in new consultation today 03/22/2023 status postoperative day #1 following an elective T10 to pelvis decompression and fusion. Patient is a 72-year-old female with past medical history significant for chronic back pain and lumbar radiculopathy, diabetes mellitus type 2, hyperlipidemia, hypertension. Patient has been complaining of lumbar radiculopathy like symptoms earlier this year, and was evaluated by Dr. Duong. She was found to have multilevel spondylosis and spondylolisthesis. She underwent an elective T10 to pelvis decompression and fusion yesterday with Dr. Duong. She did have some postoperative hypotension. Estimated blood loss was reported as 700 ML's. She was given 1 unit PRBC, and a total of 2.5 L normal saline bolus. Blood pressures are now normotensive. Urine output is ad equate in the order of 50-60 ML's per hour. Patient was extubated successfully in recovery, currently on 4 L/m nasal cannula, in no acute distress. Postoperative chest x-ray shows no acute cardiopulmonary processes. There is a right sided intrajugular central line catheter near the cavoatrial junction. There were also some postsurgical changes. Patient is currently supine in bed. No focal neurological deficits. She is able to move all 4 extremities. Denies any sensation disturbances or saddle anesthesia. Postoperative CBC shows WBC count of 11.7, hemoglobin 8, hematocrit 23, platelets 173. BMP sodium 136, potassium 3.8, chloride 109, serum bicarb 11, BUN 18, creatinine 0.6, glucose 220. Magnesium was low at 1.3. Normal saline with 20 mEq of potassium is infusing at 50 ML's per hour. Nasal swab was positive and colonized with MSSA preoperatively, and the patient is currently on cefazolin. Pain is reportedly well managed on current regimen. Patient will be monitored in the intensive care unit. , patient remains in the ICU, hemodynamically stable, doing extremely well, denies any headache no blurred vision, no nausea no vomiting no abdominal pain, she has improvement in her radicular pain and numbness and tingling into the lower extremities. Her hemoglobin today is 9.3, Garnett catheter remains in place, patient will likely be transferred out of the ICU to a medical surgical floor today. WBC count is 10.5 hemoglobin 9.3 electrodes are normal renal profi le is normal. Bicarb is 19 Progress note dated 03/29/2023. 73-year-old female who went back to the operating room, after having surgery, to repair, a dural leak, in her lumbar spine. Unfortunately, the patient apparently was quite hypoxemic after the procedure, and they've had a large- volume asked her to aspiration. Seen today again one recovery, on the mechanical ventilator. She is on pressure assist control, with an inspiratory pressure of 22 cm water and inspiratory time of 1.1 seconds. Her rate is 20, her FiO2 was 100%, and a PEEP is 12. No gases been done as yet. She's also getting a bolus of lactated Ringer's, Eric-Synephrine pushes, and norepinephrine has been ordered. Anesthesiologist was placing an arterial line. I did speak to the surgeon, Dr. Duong. The patient will be transferred to the intensive care unit. The only labs from today include a glucose of 152, and a blood gas showing a pO2 of 53, pCO2 of 59, and a pH is 7.14. I'm not sure what settings the patient was on at that time. Chest x-ray shows bilateral consolidations, and infiltrative changes, which could be consistent with aspiration, and/or pulmonary edema. Progress note dated 03/30/2023. 73-year-old female who was seen in room 252, intensive care unit. She was seen yesterday, in the phase I recovery area, having had recent surgery for a dural tear. The patient unfortunately developed a high volume gastric aspiration, with respiratory failure, requiring intubation and mechanical ventilation. She's currently in the intensive care unit. She's on volume assist control, rate 32, tidal volume 400, FiO2 100%, PEEP of 15. Blood gases show pO2 123, a pCO2 44, and a pH is 7.22. The FiO2 was reduced down to 90%. In addition she is getting lactated Ringer's at 20 mL an hour, saline at KVO, Nimbex at 1 mcg/kg/m, norepinephrine at 25 mcg/m, vasopressin at 0.04 units per minute, prop ofol at 40 mcg/kg/m. The patient's on vancomycin and Rocephin. White count 15.8, hemoglobin 10, hematocrit 31.9, with a normal platelet count. Sodium 135, potassium 3.9, chlorides 108, CO2 15, anion gap 12, BUN 19, and creatinine 1.35. Magnesium is 2.2. Thus far, cultures are negative. Nasal swab was positive for staph aureus, not MRSA. Chest x-ray shows some bilateral airspace disease, which might be a bit improved, likely because of positive pressure ventilation. Progress note dated 03/31/2023. 73-year-old female seen in room 252. The patient was seen initially in consultation number of days ago, but we were reconsulted, a few days back. The patient headaches major lumbar procedure, and subsequently developed a dural leak. The patient went back to the operating room, for repair. Subsequent to that, she developed a large-volume aspiration, and is now developed acute respiratory failure, acute respiratory distress syndrome, and required intubation and mechanical ventilation. Currently, the patient is on volume assist control, rate 32, tidal volume 400, FiO2 is 60%, and PEEP of 15. Blood gases show pO2 172, pCO2 40, and a pH of 7.26. This is consistent with a mild metabolic acidosis. The patient's on a number drips including amiodarone at 0.5 mg/minute, vasopressin at 0.04 units per minute, norepinephrine at 14 mcg/m, propofol at 40 mcg/kg/m, Nimbex at 1.5 mcg/kg/m, and lactated Ringer's at 20 mL an hour. In addition, the patient's getting saline at KVO, and vital high protein at 20 mL an hour, with a goal of 32. White count 20.4, hemoglobin 8.6, hematocrit 26.5, and platelet count 283,000. Sodium 132, potassium 3.8, chlorides 109, CO2 17, BUN 24, and creatinine 1.57. Calcium is 6.9. Sputum was positive for Enterobacter cloaca, and Klebsiella oxytoca. Chest x-ray shows diffuse bilateral airspace disease. Progress note dated 04/01/2023. 73-year-old female seen in room 252. The patient remains on mechanical ventilator. She is on assist control, rate 32, tidal volume 400, FiO2 40%, and PEEP of 10. Blood gases show pO2 103, pCO2 36, and a pH is 7.31. The patient remains on lactated Ringer's at 20 mL an hour, vasopressin at 0.04 units per minute, norepinephrine at 8 mcg/m, propofol at 40 mcg/kg/m, and tube feedings, which are on hold. The patient is receiving vancomycin and cefepime. Sampling of the sputum was positive for Klebsiella and Enterobacter. White count 21.2, hemoglobin 7.8, hematocrit 23.5, within normal platelet count. Sodium 137, potassium 3.4, chlorides 110, CO2 17, anion gap 10, BUN 22, and creatinine 1.26. This electrolyte profile consistent with mild hypokalemia, and a non-anion gap metabolic acidosis. Calcium is 7.2. Chest x-ray shows diffuse bilateral infiltrates, largely unchanged from the prior x-ray. Progress note dated 04/02/2023. 73-year-old female seen again in room 252. She remains on the mechanical ventilator. She had a pretty uneventful night. The patient is on volume assist control, rate 32, tidal volume 400, FiO2 40%, and PEEP of 10. Blood gases show pO2 of 82, pCO2 of 36, and a pH is 7.31. His blood gases are consistent with a very mild metabolic acidosis. She remains on lactated Ringer's at 20 mL an hour, fentanyl drip at 2 mcg/kg/h, vasopressin at 0.04 units per minute, propofol at 50 mcg/kg/m, and norepinephrine at 2 mcg/m. She getting vital high protein at 10 mL an hour. White count 15.8, hemoglobin 7.4, hematocrit 22.2, and platelet count 190,000. Sodium 139, potassium 3.9, chlorides 112, CO2 17, anion gap 10, BUN 18, creatinine 0.94. Sputum sampling from March 29, shows evidence of Enterobacter and Klebsiella. Chest x-ray shows patchy bilateral infiltrates. Objective - Vital Signs Vital signs: Vital Signs Temp 97.2 F L 04/02/23 08:00 Pulse 98 04/02/23 10:00 Resp 36 H 04/02/23 10:00 BP 90/47 04/02/23 10:00 Pulse Ox 94 L 04/02/23 10:00 FiO2 40 04/02/23 08:00 Intake & Output 04/01/23 04/02/23 04/02/23 18:59 06:59 18:59 Intake Total 1348.673 8258.263 306.680 Output Total 660 655 280 Balance 862.839 347.263 26.680 Weight 103.5 kg Intake: IV 800 340 80 Cefepime 2 gm In Sodium 100 100 Chloride 0.9% 100 ml @ 25 mls/hr IVPB Q12H [facility] Rx# :[id number] Lactated Ringers 1,000 ml 200 240 80 @ 20 mls/hr IV .Q24H [facility] Rx#:[id number] Vancomycin 1,500 mg In 500 Sodium Chloride 0.9% 500 ml 500 ml @ 167 mls/hr IVPB Q24H [facility] Rx#: [id number] Intake, IV Titration 582.839 652.263 156.680 Amount Norepinephrine 32 mg In 75.793 67.260 4.760 Sodium Chloride 0.9% 218 ml @ 0.03 MCG/KG/MIN 1. 364 mls/hr IV .Q24H [facility] Rx#:[id number] Vasopressin 60 unit In 137.241 Sodium Chloride 0.9% 150 ml @ 0.04 UNITS/MIN 6.12 mls/hr IV .Q24H [facility] Rx#: [id number] fentaNYL (PF). 1,000 mcg 22.358 205.643 66.56 In Sodium Chloride 0.9% 80 ml @ 0.5 MCG/KG/HR 5. 12 mls/hr IV .[id number] [facility] Rx#:[id number] propofoL 1,000 mg In 347.447 379.360 85.36 Empty Bag 1 bag @ 15 MCG/ KG/MIN 8.73 mls/hr IV . [id number] [facility] Rx#:[id number] Tube Feeding 80 10 40 Other 60 30 Output: Urine 660 655 280 Other: Voiding Method Indwelling Catheter Indwelling Catheter ABP, PAP, CO, CI - Last Documented Arterial Blood Pressure 99/42 - Exam No acute distress, sedated, intubated, on 40% oxygen, with 10 of PEEP. HEENT examination is grossly unremarkable. Neck supple. Full range of motion. No adenopathy thyromegaly or neck vein distention. Cardiovascular examination reveals regular rhythm rate. S1-S2 normal. No S3 or S4. No discernible murmur noted. Heart rate 90 bpm. Lungs reveal scattered bilateral rhonchi. Breath sounds equal. Saturations are 94 % Abdomen soft without bowel sounds. Extremities are intact. No cyanosis clubbing or edema. Skin is without rash or lesion. Neurologic examination cannot be assessed at this time. - Labs CBC & Chem 7: 04/02/23 03:47 04/02/23 03:47 Labs: Abnormal Lab Results - Last 24 Hours (Table) 04/01/23 04/01/23 04/01/23 Range/Units 11:39 17:28 23:58 WBC (3.8-10.6) k/uL RBC (3.80-5.40) m/uL Hgb (11.4-16.0) gm/dL Hct (34.0-46.0) % MCV (80.0-100.0) fL Neutrophils # (1.3-7.7) k/uL ABG pH (7.35-7.45) ABG pO2 (83-108) mmHg ABG HCO3 (21-25) mmol/L Chloride (98-107) mmol/L Carbon Dioxide (22-30) mmol/L BUN (7-17) mg/dL Glucose (74-99) mg/dL POC Glucose (mg/dL) 191 H 190 H 185 H (70-110) mg/dL Calcium (8.4-10.2) mg/dL 04/02/23 04/02/23 04/02/23 Range/Units 03:47 03:47 06:08 WBC 15.8 H (3.8-10.6) k/uL RBC 2.15 L (3.80-5.40) m/uL Hgb 7.4 L (11.4-16.0) gm/dL Hct 22.2 L (34.0-46.0) % MCV 103.3 H (80.0-100.0) fL Neutrophils # 12.9 H (1.3-7.7) k/uL ABG pH (7.35-7.45) ABG pO2 (83-108) mmHg ABG HCO3 (21-25) mmol/L Chloride 112 H (98-107) mmol/L Carbon Dioxide 17 L (22-30) mmol/L BUN 18 H (7-17) mg/dL Glucose 169 H (74-99) mg/dL POC Glucose (mg/dL) 183 H (70-110) mg/dL Calcium 7.4 L (8.4-10.2) mg/dL 04/02/23 Range/Units 09:47 WBC (3.8-10.6) k/uL RBC (3.80-5.40) m/uL Hgb (11.4-16.0) gm/dL Hct (34.0-46.0) % MCV (80.0-100.0) fL Neutrophils # (1.3-7.7) k/uL ABG pH 7.31 L (7.35-7.45) ABG pO2 82 L (83-108) mmHg ABG HCO3 18 L (21-25) mmol/L Chloride (98-107) mmol/L Carbon Dioxide (22-30) mmol/L BUN (7-17) mg/dL Glucose (74-99) mg/dL POC Glucose (mg/dL) (70-110) mg/dL Calcium (8.4-10.2) mg/dL Microbiology - Last 24 Hours (Table) 03/29/23 15:20 Blood Culture - Preliminary Blood Assessment and Plan Assessment: Acute hypoxemic respiratory failure, requiring intubation and mechanical ventilation, subsequent to repair of a dural tear, secondary to a large-volume gastric aspiration. S/P intubation and mechanical ventilation, for respiratory failure, 03/29/2023. Acute respiratory distress syndrome. Enterobacter and Klebsiella pneumonia. Acute development of atrial fibrillation with RVR. Lumbar spondylosis and spondylolisthesis, status post postop day #11, T10 to pelvic decompression and fusion. Severe hypotension, likely secondary to sepsis, currently on norepinephrine and vasopressin. Non-anion gap metabolic acidosis. History of lumbar radiculopathy. Type 2 diabetes mellitus. Benign essential hypertension. History of hyperlipidemia. Plan: Plan dated 03/29/2023. I did speak to the surgeon about this patient. Patient will be given a bed in the intensive care unit. We switch the patient to volume assist control mode, rate 20, tidal volume 350, 100%, and PEEP of 10. Blood gas will be done 30 minutes after the switch to volume assist control. Additional changes and mechanical ventilation, will be made after the blood gas. The patient is started on norepinephrine, for blood pressure support. She's also given 2 L of lactated Ringer's. Anesthesiology was placing an arterial line, and I think they were planning to place a central line as well. Additional recommendations and suggestions are forthcoming. Labs, will be reviewed. Medications will be reviewed. X-rays have been reviewed. Prognosis is guarded. Plan dated 03/30/2023. The patient's currently on vasopressin and norepinephrine, for blood pressure support. In addition, the patient is on propofol for sedation, and Nimbex, for chemical paralysis. The patient's on vancomycin and Rocephin. Cultures are thus far negative or pending. Chest x-rays a bit improved, likely secondary to positive pressure ventilation. The FiO2 was dropped from 100%, down to 90%. We will order a flat plate of the abdomen. If okay, we will begin tube feedings. No additional recommendations are made. I did speak to the orthopedic surgeon. The patient's overall prognosis remains very guarded at this point. She is obviously quite ill. Labs, x-rays, and medications are all reviewed. Plan dated 03/31/2023. The patient remains very critically ill, with a very tenuous respiratory and hemodynamic status. Labs, x-rays, and medications are reviewed. The patient remains on both vasopressin and norepinephrine for blood pressure support. The patient developed atrial fibrillation with RVR, and is currently on amiodarone. The patient remains on propofol, and Nimbex. Tube feedings are running at 20 mL an hour. The patient's FiO2 will be reduced down to 50%. We'll attempt to wean the patient off of Nimbex. We had Dilaudid, every 2 hours, for pain control. Labs, x-rays, medications are reviewed. We will continue to follow. I did give an update to the orthopedic surgeon today. Prognosis is certainly guarded. Plan dated 04/01/2023. The patient's overall situation has improved overnight. The patient is been weaned down to 40% oxygen, and 10 of PEEP. Gases are very reasonable. The patient remains on vasopressin and norepinephrine. The patient's getting propofol for sedation. Tube feedings on hold, because of high residuals. I've asked the nurses to resume tube feedings, at a low rate, 5 or 10 mL per hour. The patient continues on vancomycin and cefepime. Sputum sampling was positive for both Klebsiella and Enterobacter. Labs, x-rays, and medications are reviewed. We will continue to follow the patient make recommendations along the way. Prognosis remains guarded. Plan dated 04/02/2023. The patient has remained a bit dys-synchronous with the ventilator. Therefore, we changed her to pressure regulated volume control, or VC plus. Settings include an inspiratory time of 0.8 seconds, and a targeted tidal volume 400 mL. Blood gases on those settings were pO2 of 82, pCO2 36, pH is 7.31. In addition, today we place a right femoral arterial line. This is only site that was available for this catheter. In addition, the patient did develop some atrial fibrillation last night, and has had issues with constipation. We will continue to follow make recommendations were appropriate. Labs, x-rays, medications are reviewed. The patient remains on vancomycin and cefepime for her Enterobacter and Klebsiella. Prognosis is certainly guarded. Time with Patient: Greater than 30
[2023-04-02] MEDS ORDERED: VANCOMYCIN TROUGH DUE 1 EACH MISC MISCELLANE ONE (11:00)
[2023-04-02] MEDS: VANCOMYCIN 1,500 MG in SODIUM CHLORIDE 0.9% 500 ML 500 ML IVPB SCH (11:05)
[2023-04-02] MEDS ORDERED: HYDROmorphone 0.5 MG/0.5 ML SYRINGE IVP PRN (11:19)
[2023-04-02] MEDS ORDERED: CISATRACURIUM 2 MG/ML 5 ML VIAL IV ONE (11:28)
[2023-04-02 11:30] LABS: African American GFR (CKD) 71 (>60 ml/min/1.73 sqM); Non-African American GFR(CKD) 62 (>60 ml/min/1.73 sqM)
[2023-04-02 11:42] LABS: Glucose,Whole Blood 199 mg/dL (70-110)
--- NOTE | 2023-04-02 11:42 | P.PN ---
Subjective Progress Note Date: 04/02/23 Pts pressor req improved to vasopressin 0.4 and 0.06 levophed. Saturating better on 40% FiO2 , 10 PEEP. CVP is 13-14. Back in A Fib. Started metoprolol and resumed amiodarone. UOP dropped, rec'd lasix. No sedation holiday today. No BM yet. Gen: awake, alert HEENT: normocephalic, atraumatic, good hearing acuity, moist mucous membranes Resp: good air exchange, breathing comfortably with no accessory muscle use CVS: good distal perfusion x 4, GI: soft, NTTP, ND : no SPT, no CVAT, archuleta catheter is present MSK: no pitting edema, no clubbing Neuro: non-focal, moving all extremities Psych: cooperative, euthymic mood Hospital course: Patient is a 72-year-old female with dyslipidemia, hypertension, [id number] diabetes mellitus type 2 who presented for elective T10 to pelvis decompression and fusion. Assessment: 72-year-old female status post T10 to pelvis decompression with fusion Increase drainage from surgical incision s/p CSF repair on 03/29 - Orthospine note reviewed. Monitoring drainage, abdominal binder, and fioricet. Shock, Septic Multi-focal pneumonia Ventilator Dependent Acute Hypoxemic and Hypercarbic Respiratory Failure -Continue levophed, vasopressin -Continue vancomycin, cefepime, apprecaite ID input -continue propofol -Bowel regimen will be added: miralax, senokot-S, bisacodyl suppository, reglan IV, lactulose, ordered methyl-naltrexone for administration tomorrow if no BM Acute blood loss anemia -Anticipated outcome of surgery, transfuse 1 U PRBC today - discussed with orthopedic surgery -Follow CBC -Ferrous sulfate 325 mg daily Diabetes mellitus type 2 -Hold metformin -Sliding-scale insulin -Follow blood sugars Dyslipidemia -Gemfibrozil Hypertension -Lisinopril 30 mg daily, continue to hold her Lisinopril/hydrochlorothiazide - follow BP DVT prophylaxis: Heparin Thank you for allowing us to participate in the care of this pleasant patient. Do not hesitate to contact us with questions. Someone can be reached from the [facility] hospitalist group all hours of the day at [phone] or via perfect serve. Objective - Vital Signs Vital signs: Vital Signs Temp 97.2 F L 04/02/23 08:00 Pulse 98 04/02/23 11:27 Resp 32 H 04/02/23 11:00 BP 90/47 04/02/23 10:00 Pulse Ox 89 L 04/02/23 11:00 FiO2 40 04/02/23 11:27 Intake & Output 04/01/23 04/02/23 04/02/23 18:59 06:59 18:59 Intake Total 4642.270 2071.263 929.142 Output Total 660 655 605 Balance 862.839 347.263 324.142 Weight 103.5 kg Intake: IV 800 340 680 Cefepime 2 gm In Sodium 100 100 100 Chloride 0.9% 100 ml @ 25 mls/hr IVPB Q12H [facility] Rx# :[id number] Lactated Ringers 1,000 ml 200 240 80 @ 20 mls/hr IV .Q24H [facility] Rx#:[id number] Vancomycin 1,500 mg In 500 500 Sodium Chloride 0.9% 500 ml 500 ml @ 167 mls/hr IVPB Q24H [facility] Rx#: [id number] Intake, IV Titration 582.839 652.263 159.142 Amount Norepinephrine 32 mg In 75.793 67.260 7.222 Sodium Chloride 0.9% 218 ml @ 0.03 MCG/KG/MIN 1. 364 mls/hr IV .Q24H [facility] Rx#:[id number] Vasopressin 60 unit In 137.241 Sodium Chloride 0.9% 150 ml @ 0.04 UNITS/MIN 6.12 mls/hr IV .Q24H [facility] Rx#: [id number] fentaNYL (PF). 1,000 mcg 22.358 205.643 66.56 In Sodium Chloride 0.9% 80 ml @ 0.5 MCG/KG/HR 5. 12 mls/hr IV .[id number] [facility] Rx#:[id number] propofoL 1,000 mg In 347.447 379.360 85.36 Empty Bag 1 bag @ 15 MCG/ KG/MIN 8.73 mls/hr IV . [id number] [facility] Rx#:[id number] Tube Feeding 80 10 60 Other 60 30 Output: Urine 660 655 605 Other: Voiding Method Indwelling Catheter Indwelling Catheter Indwelling Catheter ABP, PAP, CO, CI - Last Documented Arterial Blood Pressure 113/46 - Labs CBC & Chem 7: 04/02/23 03:47 04/02/23 10:11 Labs: Abnormal Lab Results - Last 24 Hours (Table) 04/01/23 04/01/23 04/01/23 Range/Units 11:39 17:28 23:58 WBC (3.8-10.6) k/uL RBC (3.80-5.40) m/uL Hgb (11.4-16.0) gm/dL Hct (34.0-46.0) % MCV (80.0-100.0) fL Neutrophils # (1.3-7.7) k/uL ABG pH (7.35-7.45) ABG pO2 (83-108) mmHg ABG HCO3 (21-25) mmol/L Chloride (98-107) mmol/L Carbon Dioxide (22-30) mmol/L BUN (7-17) mg/dL Glucose (74-99) mg/dL POC Glucose (mg/dL) 191 H 190 H 185 H (70-110) mg/dL Calcium (8.4-10.2) mg/dL 04/02/23 04/02/23 04/02/23 Range/Units 03:47 03:47 06:08 WBC 15.8 H (3.8-10.6) k/uL RBC 2.15 L (3.80-5.40) m/uL Hgb 7.4 L (11.4-16.0) gm/dL Hct 22.2 L (34.0-46.0) % MCV 103.3 H (80.0-100.0) fL Neutrophils # 12.9 H (1.3-7.7) k/uL ABG pH (7.35-7.45) ABG pO2 (83-108) mmHg ABG HCO3 (21-25) mmol/L Chloride 112 H (98-107) mmol/L Carbon Dioxide 17 L (22-30) mmol/L BUN 18 H (7-17) mg/dL Glucose 169 H (74-99) mg/dL POC Glucose (mg/dL) 183 H (70-110) mg/dL Calcium 7.4 L (8.4-10.2) mg/dL 04/02/23 Range/Units 09:47 WBC (3.8-10.6) k/uL RBC (3.80-5.40) m/uL Hgb (11.4-16.0) gm/dL Hct (34.0-46.0) % MCV (80.0-100.0) fL Neutrophils # (1.3-7.7) k/uL ABG pH 7.31 L (7.35-7.45) ABG pO2 82 L (83-108) mmHg ABG HCO3 18 L (21-25) mmol/L Chloride (98-107) mmol/L Carbon Dioxide (22-30) mmol/L BUN (7-17) mg/dL Glucose (74-99) mg/dL POC Glucose (mg/dL) (70-110) mg/dL Calcium (8.4-10.2) mg/dL Microbiology - Last 24 Hours (Table) 03/29/23 15:20 Blood Culture - Preliminary Blood
--- NOTE | 2023-04-02 15:13 | P.PN ---
Progress Note - Text Progress Note Date: 04/02/23 Spoke with medicine and nursing and reviewed chart. Pt was rolled by nursing and dressing changed. Pictures sent, incision is CDI with some minor breakdown around skin but overall looking good. No drainage. She still has not had BM. Notes reviewed from pCC, Gen surg, Med, ID. She is having some issues today with asynchrony with the vent, she also went back into RVR for which she is being treated with amiodarone which caused her BP to drop a little and her presser requirement increase. Her HgB and HCT came back lower today and so discussed with medicine and 1 uPRBC was ordered for her. She is maintaining her sats in high 90s on lower FiO2. Her PEEP is still around 10. and SBP in the low 100s. Her UO has decreased slightly as well. While she showed good improvement in the first few days, she is slowing with this improvement and is in need of more assistance and treatment at this time. She continues to require the vent and is sedated and paralyzed with plans for a sedation holiday tomorrow. Per report she has good gag and puillary reflexes at this time. The remainder of her neurological status is yet to be determined as she has been sedated and vented. Team remains guarded at this time. We will continue to follow closely.
[2023-04-02] MEDS: AMIODARONE 450 MG in DEXTROSE 5% IN WATER 250 ML IV SCH ×2 (16:35)
[2023-04-02] MEDS: VASOPRESSIN 60 UNIT in SODIUM CHLORIDE 0.9% 150 ML IV SCH (16:41)
[2023-04-02] MEDS: GABAPENTIN 100 MG CAP PO SCH ×2 (17:41→22:29)
[2023-04-02 17:48] LABS: Glucose,Whole Blood 211 mg/dL (70-110)
[2023-04-02] MEDS: NOREPINEPHRINE 32 MG in SODIUM CHLORIDE 0.9% 218 ML IV SCH (18:42)
[2023-04-02] MEDS: IOPAMIDOL CONTRAST (ORAL USE) VIAL PO PRN ×2 (20:03→21:03)
--- NOTE | 2023-04-02 22:03 | CT ---
EXAMINATION TYPE: CT chest angio for PE CT DLP: 3850.2 mGycm, Automated exposure control for dose reduction was used. DATE OF EXAM: 04/02/2023 9:55 PM COMPARISON: Chest radiograph 04/02/2023 CLINICAL INDICATION:Female, 73 years old with history of constipation/ abd pain, rule out perforation ; TECHNIQUE/CONTRAST: CTA scan of the thorax is performed with IV Contrast, patient injected with 100ml mL of Isovue 300, p ulmonary embolism protocol. MIP images are created and reviewed. FINDINGS: Pulmonary Artery: There is no evidence for a filling defect within the pulmonary vasculature to sugge st acute pulmonary embolism. The pulmonary artery is of normal size. Lungs/Pleura: Small bilateral pleural effusions with associated atelectasis. Multifocal patchy ground glass opacities with bilateral lower lung consolidation with air bronchograms. No pneumothorax. Airway: Endotracheal tube terminates in the lower trachea. Heart: Heart is within normal limits for size.. Vasculature: No evidence of aortic aneurysm. Right IJ central venous catheter terminates in the regio n of the superior cavoatrial junction. Mediastinum: Mildly prominent mediastinal lymph nodes measuring less than 1 cm short axis. Musculoskeletal: No acute osseous abnormalities posterior lower thoracic spine fusion hardware. Degen erative changes of the thoracic spine. Soft Tissues: Foci of gas are seen since identified within the posterior back soft tissues likely rel ated to recent surgical intervention. Lower neck: No significant findings. Upper Abdomen: Please refer to dedicated CT abdomen pelvis of same day for findings. IMPRESSION: 1. No evidence of pulmonary embolism. 2. Multifocal groundglass opacities and bibasilar consolidation consistent with pneumonia. Small bila teral pleural effusions. 3. Mildly prominent mediastinal lymph nodes measuring less than 1 cm short axis are likely reactive t o #2. 4. Postsurgical changes of the back from fusion with skin trinh and soft tissue gas identified. I. Endotracheal tube in appropriate position.
--- NOTE | 2023-04-02 22:10 | CT ---
EXAMINATION TYPE: CT abdomen pelvis w con CT DLP: 3850.2 (combined) mGycm, Automated exposure control for dose reduction was used. DATE OF EXAM: 04/02/2023 9:54 PM COMPARISON: CT abdomen pelvis most recent from 07/31/2023. CLINICAL INDICATION:Female, 73 years old with history of constipation/ abd pain, rule out perforation ; constipation/ abd pain, rule out perforation TECHNIQUE: Standard CT of the abdomen following the administration of 100 cc of Isovue 300 IV contr ast material and oral contrast. Coronal and sagittal reformats were performed. FINDINGS: LOWER CHEST: Please see dedicated CT chest for findings ABDOMEN LIVER: Unremarkable GALLBLADDER AND BILE DUCTS: The gallbladder is surgically absent. PANCREAS: Unremarkable. SPLEEN: Unremarkable. ADRENAL GLANDS: Unremarkable. KIDNEYS AND URETERS: No evidence of hydronephrosis or renal calculus. The knees enhance symmetrically . Subcentimeter hypodense focus within the right renal cortex which is too small characters. Noncirrh otic bilateral perinephric fat stranding. PELVIS BLADDER: Nondistended with Garnett catheter in place. REPRODUCTIVE: Poorly visualized from streak artifact. ABDOMEN & PELVIS STOMACH AND BOWEL: NG tube terminates within the stomach in appropriate position. Gaseous distention of the small and large bowel. Contrast is demonstrated throughout the bowel extending into the sigmoi d colon. No focal transition point identified. The ascending colon measures up to 9.2 cm in diameter. No pneumatosis. Sigmoid diverticulosis without evidence for acute diverticulitis. PERITONEUM: No evidence of pneumoperitoneum or free fluid. VASCULATURE: No evidence of aortic aneurysm. MUSCULOSKELETAL: No acute osseous abnormalities. Postsurgical changes from thoracolumbar fusion surge ry with bilateral pedicular screws and rods. This creates streak artifact which limits evaluation. Ad ditionally right total hip arthroplasty changes noted which creates streak artifact. LYMPH NODES: No gross evidence for lymphadenopathy. SOFT TISSUE/ABDOMINAL WALL: Diffuse anasarca. Post surgical changes with skin trinh and subcutaneou s gas gas identified from fusion surgery. Fat filled left inguinal hernia. IMPRESSION: 1. Findings most consistent with an ileus. No evidence of perforation. 2. Post surgical changes of the thoracolumbar spine. 3. Diffuse anasarca. 4. Colonic diverticulosis without evidence for acute diverticulitis.
--- NOTE | 2023-04-02 22:45 | P.PN ---
Subjective Progress Note Date: 04/02/23 Principal diagnosis: Sepsis/pneumonia Patient is a 73-year-old female electively admitted to the hospital 03/21/2023 and this patient who is s/p extensive thoracolumbar spine surgery in this patient who is status post L2-L5 deformity correction did have a L2-S1 interbody fusion and T10-L2 posterior lateral instrumented fusion,patient did have postoperative CSF leak status post complex T10 posterior decompression fusion with dural repair postoperatively the patient did have a respiratory distress requiring intubation and admission to the ICU. On today's evaluation that is 04/02/2023, patient is afebrile today, patient FiO2 is up to 62% today, no significant purulent secretions through the ET diarrhea or any other changes reported by the nursing staff Patient did have white count is down to 15,000 and the patient did have a normal creatinine, blood cultures are negative so far sputum grew Klebsiella and Enterobacter Objective - Vital Signs Vital signs: Vital Signs Temp 97.2 F L 04/02/23 08:00 Pulse 93 04/02/23 11:00 Resp 32 H 04/02/23 11:00 BP 90/47 04/02/23 10:00 Pulse Ox 89 L 04/02/23 11:00 FiO2 40 04/02/23 08:00 Intake & Output 04/01/23 04/02/23 04/02/23 18:59 06:59 18:59 Intake Total 4543.367 2854.263 929.142 Output Total 660 655 605 Balance 862.839 347.263 324.142 Weight 103.5 kg Intake: IV 800 340 680 Cefepime 2 gm In Sodium 100 100 100 Chloride 0.9% 100 ml @ 25 mls/hr IVPB Q12H [facility] Rx# :[id number] Lactated Ringers 1,000 ml 200 240 80 @ 20 mls/hr IV .Q24H [facility] Rx#:[id number] Vancomycin 1,500 mg In 500 500 Sodium Chloride 0.9% 500 ml 500 ml @ 167 mls/hr IVPB Q24H [facility] Rx#: [id number] Intake, IV Titration 582.839 652.263 159.142 Amount Norepinephrine 32 mg In 75.793 67.260 7.222 Sodium Chloride 0.9% 218 ml @ 0.03 MCG/KG/MIN 1. 364 mls/hr IV .Q24H [facility] Rx#:[id number] Vasopressin 60 unit In 137.241 Sodium Chloride 0.9% 150 ml @ 0.04 UNITS/MIN 6.12 mls/hr IV .Q24H [facility] Rx#: [id number] fentaNYL (PF). 1,000 mcg 22.358 205.643 66.56 In Sodium Chloride 0.9% 80 ml @ 0.5 MCG/KG/HR 5. 12 mls/hr IV .[id number] [facility] Rx#:[id number] propofoL 1,000 mg In 347.447 379.360 85.36 Empty Bag 1 bag @ 15 MCG/ KG/MIN 8.73 mls/hr IV . [id number] [facility] Rx#:[id number] Tube Feeding 80 10 60 Other 60 30 Output: Urine 660 655 605 Other: Voiding Method Indwelling Catheter Indwelling Catheter Indwelling Catheter ABP, PAP, CO, CI - Last Documented Arterial Blood Pressure 113/46 - Exam GENERAL DESCRIPTION: An elderly female intubated on the vent RESPIRATORY SYSTEM: Unlabored breathing , decreased breath sounds at bases HEART: S1 S2 regular rate and rhythm , ABDOMEN: Soft , no tenderness EXTREMITIES: Bilateral lower extremity swelling no redness - Labs CBC & Chem 7: 04/02/23 03:47 04/02/23 10:11 Labs: Abnormal Lab Results - Last 24 Hours (Table) 04/01/23 04/01/23 04/01/23 Range/Units 11:39 17:28 23:58 WBC (3.8-10.6) k/uL RBC (3.80-5.40) m/uL Hgb (11.4-16.0) gm/dL Hct (34.0-46.0) % MCV (80.0-100.0) fL Neutrophils # (1.3-7.7) k/uL ABG pH (7.35-7.45) ABG pO2 (83-108) mmHg ABG HCO3 (21-25) mmol/L Chloride (98-107) mmol/L Carbon Dioxide (22-30) mmol/L BUN (7-17) mg/dL Glucose (74-99) mg/dL POC Glucose (mg/dL) 191 H 190 H 185 H (70-110) mg/dL Calcium (8.4-10.2) mg/dL 04/02/23 04/02/23 04/02/23 Range/Units 03:47 03:47 06:08 WBC 15.8 H (3.8-10.6) k/uL RBC 2.15 L (3.80-5.40) m/uL Hgb 7.4 L (11.4-16.0) gm/dL Hct 22.2 L (34.0-46.0) % MCV 103.3 H (80.0-100.0) fL Neutrophils # 12.9 H (1.3-7.7) k/uL ABG pH (7.35-7.45) ABG pO2 (83-108) mmHg ABG HCO3 (21-25) mmol/L Chloride 112 H (98-107) mmol/L Carbon Dioxide 17 L (22-30) mmol/L BUN 18 H (7-17) mg/dL Glucose 169 H (74-99) mg/dL POC Glucose (mg/dL) 183 H (70-110) mg/dL Calcium 7.4 L (8.4-10.2) mg/dL 04/02/23 Range/Units 09:47 WBC (3.8-10.6) k/uL RBC (3.80-5.40) m/uL Hgb (11.4-16.0) gm/dL Hct (34.0-46.0) % MCV (80.0-100.0) fL Neutrophils # (1.3-7.7) k/uL ABG pH 7.31 L (7.35-7.45) ABG pO2 82 L (83-108) mmHg ABG HCO3 18 L (21-25) mmol/L Chloride (98-107) mmol/L Carbon Dioxide (22-30) mmol/L BUN (7-17) mg/dL Glucose (74-99) mg/dL POC Glucose (mg/dL) (70-110) mg/dL Calcium (8.4-10.2) mg/dL Microbiology - Last 24 Hours (Table) 03/29/23 15:20 Blood Culture - Preliminary Blood Assessment and Plan (1) Sepsis Current Visit: Yes Status: Acute Code(s): A41.9 - SEPSIS, UNSPECIFIED ORGANISM SNOMED Code(s): 92606769 (2) Gram-negative pneumonia Current Visit: Yes Status: Acute Code(s): J15.6 - PNEUMONIA DUE TO OTHER GRAM-NEGATIVE BACTERIA SNOMED Code(s): 367401013 (3) Leukocytosis Current Visit: Yes Status: Acute Code(s): D72.829 - ELEVATED WHITE BLOOD CELL COUNT, UNSPECIFIED SNOMED Code(s): 009424353 Plan: 1patient with a sepsis/septic shock in this patient with fever elevated white count hypertension tachycardia is source likely aspiration pneumonia likely gr am-negative with a sputum currently growing Klebsiella and Enterobacter with some resistant pattern, patient did have a CSF leak and did have extensive T10- S1 spine surgery underlying meningitis less likely but not entirely excluded 2-patient fever pattern has improved and the patient white count is trending down we will continue with cefepime and vancomycin and monitor clinical course closely Prognosis remains to be guarded at the bedside questions were answered Dictation was produced using [employer] dictation software. please excuse any grammatical, word or spelling errors. Time with Patient: Less than 30
--- NOTE | 2023-04-03 00:20 | P.PCN ---
Date of Procedure: 04/03/23 Preoperative Diagnosis: hypotension and sepsis Postoperative Diagnosis: hypotension and sepsis Procedure(s) Performed: insertion of a right brachial arterial line Indications for Procedure: continuous blood pressure monitoring and frequent blood draws Description of Procedure: Informed consent was obtained, and a procedural timeout was performed . The patient was placed in supine position. The right brachial region was prepared in a sterile fashion, and a sterile drape was applied. The right brachial artery was palpated, easily cannulated, and a guidewire was placed. A Cook catheter was inserted over the guidewire, and the guidewire was removed. There was good arterial blood flow, good arterial waveform, and no complications. The line was secured with using a 3-0 silk suture.
[2023-04-03] MEDS: IPRATROPIUM-ALBUTEROL 3 ML NEB INHALATION SCH ×7 (00:22→23:56)
[2023-04-03 00:29] LABS: Glucose,Whole Blood 180 mg/dL (70-110)
[2023-04-03] MEDS: CEFEPIME 2 GM in SODIUM CHLORIDE 0.9% 100 ML IVPB SCH (00:35)
[2023-04-03] MEDS: METOCLOPRAMIDE 5 MG/ML 2 ML VIAL IVP SCH ×4 (00:35→18:38)
[2023-04-03] MEDS: INSULIN ASPART (NovoLOG) 100 UNIT/ML VIAL SQ SCH ×4 (00:35→18:00)
[2023-04-03] MEDS: HYDROmorphone 1 MG/ML 1 ML SYRINGE IVP SCH ×6 (00:36→20:27)
[2023-04-03] MEDS: CISATRACURIUM 200 MG in SODIUM CHLORIDE 0.9% 180 ML IV SCH (01:48)
[2023-04-03] MEDS: fentaNYL (PF). 1,000 MCG in SODIUM CHLORIDE 0.9% 80 ML IV SCH ×5 (02:41→22:03)
[2023-04-03] MEDS ORDERED: ARTIFICIAL TEARS-HYPROMELLOSE DROPS 15 ML BTL BOTH EYES PRN (04:00)
[2023-04-03] MEDS: ARTIFICIAL TEARS-HYPROMELLOSE DROPS 15 ML BTL BOTH EYES SCH ×5 (04:41→22:07)
[2023-04-03 05:01] LABS: HCT 24.8 % (34.0-46.0); HGB 8.3 gm/dL (11.4-16.0); Hypochromasia Marked; MCH 34.2 pg (25.0-35.0); MCHC 33.3 g/dL (31.0-37.0); MCV 102.8 fL (80.0-100.0); Macrocytosis Slight; Mean Platelet Volume 8.5; Platelet Count 212 k/uL (150-450); Poikilocytosis Slight; RBC 2.42 m/uL (3.80-5.40); RDW 14.8 % (11.5-15.5)
[2023-04-03 05:18] LABS: African American GFR (CKD) 76 (>60 ml/min/1.73 sqM); Anion Gap 10 mmol/L; Blood Urea Nitrogen 19 mg/dL (7-17); Calcium 7.6 mg/dL (8.4-10.2); Carbon Dioxide 17 mmol/L (22-30); Chloride 107 mmol/L (98-107); Glucose 149 mg/dL (74-99); Non-African American GFR(CKD) 66 (>60 ml/min/1.73 sqM); Potassium 4.2 mmol/L (3.5-5.1); Sodium 134 mmol/L (137-145)
[2023-04-03 05:41] LABS: Band Neutrophils % 5 %; Lymphocytes # (M) 1.19 k/uL (1.0-4.8); Metamyelocytes # (M) 0.17 k/uL (0); Metamyelocytes % 1 %; Monocytes # (M) 0.34 k/uL (0-1.0); Myelocytes # (M) 0.68 k/uL (0); Myelocytes % 4 %; Neutrophils % (M) 71 %; Nucleated Red Blood Cells 0 /100 WBC (0-0); Tear Drop Cells Present; Total Cells Counted 100
[2023-04-03 05:56] LABS: ABG Base Excess -10.4 mmol/L; ABG HCO3 18 mmol/L (21-25); ABG Oxygen Saturation 96.2 % (94-97); ABG PCO2 43 mmHg (35-45); ABG PH 7.21 (7.35-7.45); ABG PO2 89 mmHg (83-108); ABG TCO2 19 mmol/L (19-24)
[2023-04-03 05:56] LABS: Glucose,Whole Blood 171 mg/dL (70-110)
--- NOTE | 2023-04-03 07:23 | XR ---
EXAMINATION TYPE: XR chest 1V portable DATE OF EXAM: 04/03/2023 5:17 AM COMPARISON: Chest radiographs from 04/02/2023 TECHNIQUE: XR chest 1V portable Frontal view of the chest. CLINICAL INDICATION:Female, 73 years old with history of Tube placement; FINDINGS: Lungs/Pleura: Multifocal airspace opacities. No evidence of pneumothorax or pleural effusion. Pulmonary vascularity: Unremarkable. Heart/mediastinum: Cardiomediastinal silhouette is unremarkable. Musculoskeletal: No acute osseous pathology. Fixation hardware throughout the spine appears intact. Other findings: Skin trinh project over the right. Lines/Tubes: Endotracheal tube with distal tip 8.2 cm above the mercy. Nasogastric tube with its distal tip and side-port projecting under the diaphragm. Right internal jugular central venous catheter with distal tip at the cavoatrial junction. IMPRESSION: 1. High endotracheal tube consider advancement of 4 cm for optimal placement. 2. Stable nasogastric tube. 3. Patchy airspace disease similar prior.
--- NOTE | 2023-04-03 07:25 | XR ---
EXAMINATION TYPE: XR abdomen 1V DATE OF EXAM: 04/03/2023 5:18 AM INDICATION: Patient age:Female; 73 years old; Reason for study: follow up; COMPARISON: Prior 03/30/2023 TECHNIQUE: One radiographic view of the abdomen was obtained. FINDINGS: Gaseous distention of the stomach with nasogastric tube in place. Dilated loops of gas-dist ended bowel the abdomen measuring up to 9.1 cm. Fixation changes to the spine. Surgical trinh prese nt. Right upper quadrant cholecystectomy clips present. IMPRESSION: Gaseous dilation of the stomach and bowel remains present.
--- NOTE | 2023-04-03 07:54 | P.PN ---
Subjective Progress Note Date: 04/03/23 Principal diagnosis: 1. L1-S1 spondylosis with stenosis 2. L1-S1 spondylolisthesis 3. Lower extremity radiculopathy 4. Low back pain 5. Lower extremity weakness Patient seen and examined this morning. Patient is currently sedated on mechanical ventilation. Current vitals BP 103/56, HR 66, Resp 32, O2 sat 97%. Vent settings have been increased to FiO2 60%, PEEP 15. Patient currently is on vasopressin, levophed, and amiodarone. Aggressive bowel regimen has been provided with no result at this time. Encourage for PT to perform ROM exercises to her extremities and joints. Surgical dressing is CDI, Incision is well approximated with trinh and sutures intact. No active drainage noted. There is +3 pitting edema noted to bilateral upper and lower extremities. SCDs and Prafo boots are present to lower extremities. Garnett cath is present and patent. Objective - Vital Signs Vital signs: Vital Signs Temp 98.2 F 04/03/23 04:00 Pulse 66 04/03/23 07:46 Resp 32 H 04/03/23 07:30 BP 103/56 04/03/23 07:30 Pulse Ox 97 04/03/23 07:30 FiO2 60 04/03/23 07:38 Intake & Output 04/02/23 04/03/23 04/03/23 18:59 06:59 18:59 Intake Total 1754.652 988.720 20 Output Total 1335 725 40 Balance 419.652 263.720 -20 Weight 105.1 kg Intake: IV 760 320 20 Cefepime 2 gm In Sodium 100 100 Chloride 0.9% 100 ml @ 25 mls/hr IVPB Q12H [facility] Rx# :[id number] Lactated Ringers 1,000 ml 160 220 20 @ 20 mls/hr IV .Q24H [facility] Rx#:[id number] Vancomycin 1,500 mg In 500 Sodium Chloride 0.9% 500 ml 500 ml @ 167 mls/hr IVPB Q24H [facility] Rx#: [id number] Intake, IV Titration 734.652 648.720 Amount Cisatracurium 200 mg In 0 177.088 Sodium Chloride 0.9% 180 ml @ 2 MCG/KG/MIN 12.42 mls/hr IV .[id number] [facility] Rx# :[id number] Norepinephrine 32 mg In 42.342 27.677 Sodium Chloride 0.9% 218 ml @ 0.03 MCG/KG/MIN 1. 364 mls/hr IV .Q24H [facility] Rx#:[id number] Vasopressin 60 unit In 142.086 Sodium Chloride 0.9% 150 ml @ 0.04 UNITS/MIN 6.12 mls/hr IV .Q24H [facility] Rx#: [id number] fentaNYL (PF). 1,000 mcg 264.864 161.110 In Sodium Chloride 0.9% 80 ml @ 0.5 MCG/KG/HR 5. 12 mls/hr IV .[id number] [facility] Rx#:[id number] propofoL 1,000 mg In 285.36 282.845 Empty Bag 1 bag @ 15 MCG/ KG/MIN 8.73 mls/hr IV . [id number] [facility] Rx#:[id number] Tube Feeding 200 20 Other 60 Output: Urine 1335 725 40 Other: Voiding Method Indwelling Catheter Indwelling Catheter ABP, PAP, CO, CI - Last Documented Arterial Blood Pressure 119/50 - Exam Physical Examination Patient remains sedated and on Mechanical ventilation, settings currently FIO2 60%, PEEP 15, O2 sat 96% Inspection: Dressing to surgical incision is clean, dry, and intact +3 pitting edema noted to bilateral upper and lower extremities. Garnett catheter remains in place and patent. SCDs and Prafo boots are present to lower extremities. Neurovascular: Radial pulse intact, 2+ bilaterally. Cap refill under 3 seconds in digits upper extremities. - Labs CBC & Chem 7: 04/03/23 04:32 04/03/23 04:32 Labs: Abnormal Lab Results - Last 24 Hours (Table) 04/02/23 04/02/23 04/02/23 Range/Units 09:47 11:41 11:42 WBC (3.8-10.6) k/uL RBC (3.80-5.40) m/uL Hgb (11.4-16.0) gm/dL Hct (34.0-46.0) % MCV (80.0-100.0) fL Neutrophils # (Manual) (1.3-7.7) k/uL Eosinophils # (Manual) (0-0.7) k/uL Metamyelocytes # (Man) (0) k/uL Myelocytes # (Manual) (0) k/uL ABG pH 7.31 L (7.35-7.45) ABG pO2 82 L (83-108) mmHg ABG HCO3 18 L (21-25) mmol/L Sodium (137-145) mmol/L Carbon Dioxide (22-30) mmol/L BUN (7-17) mg/dL Glucose (74-99) mg/dL POC Glucose (mg/dL) 199 H (70-110) mg/dL Calcium (8.4-10.2) mg/dL Crossmatch See Detail 04/02/23 04/03/23 04/03/23 Range/Units 17:45 00:28 04:32 WBC (3.8-10.6) k/uL RBC (3.80-5.40) m/uL Hgb (11.4-16.0) gm/dL Hct (34.0-46.0) % MCV (80.0-100.0) fL Neutrophils # (Manual) (1.3-7.7) k/uL Eosinophils # (Manual) (0-0.7) k/uL Metamyelocytes # (Man) (0) k/uL Myelocytes # (Manual) (0) k/uL ABG pH (7.35-7.45) ABG pO2 (83-108) mmHg ABG HCO3 (21-25) mmol/L Sodium 134 L (137-145) mmol/L Carbon Dioxide 17 L (22-30) mmol/L BUN 19 H (7-17) mg/dL Glucose 149 H (74-99) mg/dL POC Glucose (mg/dL) 211 H 180 H (70-110) mg/dL Calcium 7.6 L (8.4-10.2) mg/dL Crossmatch 04/03/23 04/03/23 04/03/23 Range/Units 04:32 05:52 05:54 WBC 17.0 H (3.8-10.6) k/uL RBC 2.42 L (3.80-5.40) m/uL Hgb 8.3 L (11.4-16.0) gm/dL Hct 24.8 L (34.0-46.0) % MCV 102.8 H (80.0-100.0) fL Neutrophils # (Manual) 12.90 H (1.3-7.7) k/uL Eosinophils # (Manual) 1.70 H (0-0.7) k/uL Metamyelocytes # (Man) 0.17 H (0) k/uL Myelocytes # (Manual) 0.68 H (0) k/uL ABG pH 7.21 L (7.35-7.45) ABG pO2 (83-108) mmHg ABG HCO3 18 L (21-25) mmol/L Sodium (137-145) mmol/L Carbon Dioxide (22-30) mmol/L BUN (7-17) mg/dL Glucose (74-99) mg/dL POC Glucose (mg/dL) 171 H (70-110) mg/dL Calcium (8.4-10.2) mg/dL Crossmatch Assessment and Plan Assessment: Postop Day 5: Irrigation and Debridement with revision dural repair lumbar spine ; Postop Day 13: [id number] decompression and fusion 1. Aspiration Pneumonia 2. Post-op Ileus 3. Post-op anemia-resolved 4. L1-S1 spondylosis with stenosis 5. L1-S1 spondylolisthesis 6. Lower extremity radiculopathy 7. Low back pain 8. Lower extremity weakness Plan: -Appreciate senior microsoft consultant and team management. -Activity: ROM exercises of extremities if medically tolerated. -Pain control: Adequate at this time -Meds: reviewed -GI ppx: protonix -DVT PPX: SCDs and TEDS -Hygiene: Maintain dressing clean and dry. Meticulous cleaning after BMs away from the incision site -Dispo: Clinically pending *I reviewed and discussed this case with my attending Dr. Duong, whom has reviewed this chart and films and is in agreement with assessment and plan of care as outlined above. I have personally seen and examined the patient, performed the documentation and the assessment and plan as written. Number of minutes spent on the visit: 20m.
--- NOTE | 2023-04-03 07:56 | P.PN ---
Subjective Progress Note Date: 04/03/23 Principal diagnosis: Lumbar degenerative scoliosis LE weakness LE radiculopathy Pt s/e with nursing and MANAGER ESTATE at bedside. Pt is relatively stable since yesterday, with that being said she did yesterday increase her vent needs with FiO2 at 60%, PEEP around 15. Her rate and TV have remained stable. She has come down on her presser requirements despite amiodarone drip for afib RVR of which she converted out of and her rate is now around 65 today. She is maintaining sats in high 90s. SBP is in the 117-118 range currently via art line. CVP is normal. She was rolled today and we viewed her dressing which was CDI as well as the incision which was also CDI at this time. NO drainage noted. No neurological assessment distally due to sedation and placing her back on nimbex. Objective - Vital Signs Vital signs: Vital Signs Temp 98.2 F 04/03/23 04:00 Pulse 66 04/03/23 07:46 Resp 32 H 04/03/23 07:30 BP 103/56 04/03/23 07:30 Pulse Ox 97 04/03/23 07:30 FiO2 60 04/03/23 07:38 Intake & Output 04/02/23 04/03/23 04/03/23 18:59 06:59 18:59 Intake Total 5685.477 8508.309 20 Output Total 1335 725 40 Balance 419.652 283.309 -20 Weight 105.1 kg Intake: IV 760 320 20 Cefepime 2 gm In Sodium 100 100 Chloride 0.9% 100 ml @ 25 mls/hr IVPB Q12H [facility] Rx# :[id number] Lactated Ringers 1,000 ml 160 220 20 @ 20 mls/hr IV .Q24H [facility] Rx#:[id number] Vancomycin 1,500 mg In 500 Sodium Chloride 0.9% 500 ml 500 ml @ 167 mls/hr IVPB Q24H [facility] Rx#: [id number] Intake, IV Titration 734.652 668.309 Amount Cisatracurium 200 mg In 0 177.088 Sodium Chloride 0.9% 180 ml @ 2 MCG/KG/MIN 12.42 mls/hr IV .Q16H7M [facility] Rx# :[id number] Norepinephrine 32 mg In 42.342 47.266 Sodium Chloride 0.9% 218 ml @ 0.03 MCG/KG/MIN 1. 364 mls/hr IV .Q24H [facility] Rx#:[id number] Vasopressin 60 unit In 142.086 Sodium Chloride 0.9% 150 ml @ 0.04 UNITS/MIN 6.12 mls/hr IV .Q24H [facility] Rx#: [id number] fentaNYL (PF). 1,000 mcg 264.864 161.110 In Sodium Chloride 0.9% 80 ml @ 0.5 MCG/KG/HR 5. 12 mls/hr IV .[id number] [facility] Rx#:[id number] propofoL 1,000 mg In 285.36 282.845 Empty Bag 1 bag @ 15 MCG/ KG/MIN 8.73 mls/hr IV . [id number] [facility] Rx#:[id number] Tube Feeding 200 20 Other 60 Output: Urine 1335 725 40 Other: Voiding Method Indwelling Catheter Indwelling Catheter ABP, PAP, CO, CI - Last Documented Arterial Blood Pressure 119/50 - Exam Vented, Sedated. Not following commands. Abdomen is soft but more distended she has yet to have BM. Edema worsened peripherally with some weeping of forearms. Nonpitting. Diaphoretic Neg Babinski Neg Cardona's No Clonus Dressing CDI Low back incision viewed and is CDI as well without drainage at this time. - Labs CBC & Chem 7: 04/03/23 04:32 04/03/23 04:32 Labs: Abnormal Lab Results - Last 24 Hours (Table) 04/02/23 04/02/23 04/02/23 Range/Units 09:47 11:41 11:42 WBC (3.8-10.6) k/uL RBC (3.80-5.40) m/uL Hgb (11.4-16.0) gm/dL Hct (34.0-46.0) % MCV (80.0-100.0) fL Neutrophils # (Manual) (1.3-7.7) k/uL Eosinophils # (Manual) (0-0.7) k/uL Metamyelocytes # (Man) (0) k/uL Myelocytes # (Manual) (0) k/uL ABG pH 7.31 L (7.35-7.45) ABG pO2 82 L (83-108) mmHg ABG HCO3 18 L (21-25) mmol/L Sodium (137-145) mmol/L Carbon Dioxide (22-30) mmol/L BUN (7-17) mg/dL Glucose (74-99) mg/dL POC Glucose (mg/dL) 199 H (70-110) mg/dL Calcium (8.4-10.2) mg/dL Crossmatch See Detail 04/02/23 04/03/23 04/03/23 Range/Units 17:45 00:28 04:32 WBC (3.8-10.6) k/uL RBC (3.80-5.40) m/uL Hgb (11.4-16.0) gm/dL Hct (34.0-46.0) % MCV (80.0-100.0) fL Neutrophils # (Manual) (1.3-7.7) k/uL Eosinophils # (Manual) (0-0.7) k/uL Metamyelocytes # (Man) (0) k/uL Myelocytes # (Manual) (0) k/uL ABG pH (7.35-7.45) ABG pO2 (83-108) mmHg ABG HCO3 (21-25) mmol/L Sodium 134 L (137-145) mmol/L Carbon Dioxide 17 L (22-30) mmol/L BUN 19 H (7-17) mg/dL Glucose 149 H (74-99) mg/dL POC Glucose (mg/dL) 211 H 180 H (70-110) mg/dL Calcium 7.6 L (8.4-10.2) mg/dL Crossmatch 04/03/23 04/03/23 04/03/23 Range/Units 04:32 05:52 05:54 WBC 17.0 H (3.8-10.6) k/uL RBC 2.42 L (3.80-5.40) m/uL Hgb 8.3 L (11.4-16.0) gm/dL Hct 24.8 L (34.0-46.0) % MCV 102.8 H (80.0-100.0) fL Neutrophils # (Manual) 12.90 H (1.3-7.7) k/uL Eosinophils # (Manual) 1.70 H (0-0.7) k/uL Metamyelocytes # (Man) 0.17 H (0) k/uL Myelocytes # (Manual) 0.68 H (0) k/uL ABG pH 7.21 L (7.35-7.45) ABG pO2 (83-108) mmHg ABG HCO3 18 L (21-25) mmol/L Sodium (137-145) mmol/L Carbon Dioxide (22-30) mmol/L BUN (7-17) mg/dL Glucose (74-99) mg/dL POC Glucose (mg/dL) 171 H (70-110) mg/dL Calcium (8.4-10.2) mg/dL Crossmatch Assessment and Plan Assessment: 73 yo female with degenerative lumbar scoliosis surgery 03/21/23 and 03/29/23 POD 20 and 5 from lumbar decompression fusion T10-P with revision dural repair due to dural erosion ARF, Likely aspiration event during 03/29/23 surgery, possibly on intubation DMII, poor control, Gastorparesis Complex medical patient Plan: -Cont entry level sales consultant and team management. Notes reviewed from [facility], [facility], [facility], [facility]. [facility] and Medicine primary ICU mgt. Vent and meds, pressers per ICU team. -Activity: Bedrest currently. Turn q2. Check dressing regularly. Elevate heels. Dickens boots. PT to move legs and arms to decrease edema. OK For HOB 15-20 deg. -Pain control: Vented, sedated -Meds: [reviewed] -GI ppx: More aggressive bowel control. She has had enemax2, Suppository, Senna, Miralax, Lactulose, Reglan, Mag Citrate. Awaiting BM. Deferr to [facility] for treatment. -Garnett catheter, con change per protocol -DVT PPX: Mechanical, OK to restart Chemo ppx tonight 24 hr post op -Cont Enteral feeds -Hygiene: Maintain dressing clean and dry. Meticulous cleaning after BMs away from incision site -No drain -Dispo: [Pending]
[2023-04-03] MEDS: AMIODARONE 450 MG in DEXTROSE 5% IN WATER 250 ML IV SCH ×2 (08:50)
[2023-04-03] MEDS: CHLORHEXIDINE GLUCONATE 15 ML CUP MUCOUS MEM SCH ×2 (08:53→22:07)
[2023-04-03] MEDS: PANTOPRAZOLE 40 MG/10 ML VIAL IV SCH (08:54)
[2023-04-03] MEDS: GABAPENTIN 100 MG CAP PO SCH ×2 (08:54→16:41)
[2023-04-03] MEDS: polyethylene glycoL 3350 17 GM POWD.PACK PO SCH (08:54)
[2023-04-03] MEDS: SENNOSIDES-DOCUSATE SODIUM 1 EACH TAB PO SCH ×2 (08:55→22:08)
--- NOTE | 2023-04-03 10:05 | P.PN ---
Subjective Progress Note Date: 04/03/23 Respiratory failure. Patient is a 72-year-old female with past medical history significant for chronic back pain and lumbar radiculopathy, diabetes mellitus type 2, hyperlipidemia, hypertension. Patient has been complaining of lumbar radiculopathy like symptoms earlier this year, and was evaluated by Dr. Duong. She was found to have multilevel spondylosis and spondylolisthesis. She underwent an elective T10 to pelvis decompression and fusion . The initial surgery was done on 03/21/2023. Subsequently, the patient continued to have CSF leak following a complex he 10 decompression fusion and the patient underwent a ureteral repair with a patch graft. This was done on 03/29/2023. On today's evaluation of 04/03/2023, the patient remains intubated on a mechanical ventilator. The patient has been intubated since 03/29/2023. She has an acute hypoxic respiratory failure/bilateral pneumonia/ARDS in addition to hypotension/sepsis. She remains on mechanical ventilator and the splinter assist-control mode rate of 32, tidal volume 400, FiO2 of 60% with a PEEP of 15. Peak airway pressure is 38. They static airway pressure is 34. The chest x- ray from today shows diffuse bilateral pulmonary infiltrates. The patient has a triple-lumen catheter in her right IJ. ET tube seems to be high in the trachea. No evidence of any pleural effusion and there is diffuse consolidation. There is hardware also involving the thoracolumbar spine. At the same time, the patient has a pH of 7.21 with a pCO2 of 43 and pO2 of 89. She is currently sedated and she is on propofol running at 50 mcg/kg/m and fentanyl running at 2 mcg/kg/h the patient is also on paralytics and she is on Nimbex at 3 mcg/kg/m. IV fluids running at KVO. Cardiac rhythm is sinus and the patient remains on amiodarone drip at 0.5 mg/m maintenance. The patient is fully sedated and paralyzed this point in time. IV fluids are at 20 mL an hour and the patient remains on pressors. She is on physiologic dose of vasopressin at 0.04 units an hour and the patient is also on norepinephrine running at 0.08 mcg/kg/m. She has an arterial line in the right brachial. She has a triple-lumen catheter in the right IJ. In terms of her blood work, the patient has a white cell count of 17 with a hemoglobin of 8.3 and a platelet count of 212. Sodium is at 134, potassium is at 4.2, bicarb is at 17, BUN is at 19 with a creatinine of 0.8. Her microbiology from the sputum indicated presence of Enterobacter and Klebsiella. The patient is currently covered with antibiotics and she is on IV cefepime. She is also on vancomycin. The most recent vancomycin trough from yesterday was 15. Urine output is in order of 50 mL an hour and overall fluid balance over the past 24 hours has been +700 mL. The patient has been ess entially in a positive fluid balance over the past several days. The patient is on enteral feeding for nutritional support and currently she is on hold as the patient is having higher residuals. Most recent CT angiogram of the chest that was done on 04/02/2023 showed multifocal groundglass pulmonary opacities and bibasilar consolidation consistent with pneumonia and there is also small pleural effusions and postsurgical changes involving the spine. CAT scan of the abdomen and pelvis was also done on 04/02/2023 and was consistent with ileus. No evidence of any perforation. No evidence of any mechanical obstruction as the patient did not have any focal transition point and contrast was de monstrated throughout the bowel extending to sigmoid colon. There is evidence of sigmoid diverticulosis without evidence of diverticulitis. There is diffuse anasarca. Echo of the heart was done on 03/29/2023 showed normal LV with an ejection fraction of 6065%, there is mild to moderate pulmonary hypertension with mild tricuspid regurgitation. Objective - Vital Signs Vital signs: Vital Signs Temp 98.3 F 04/03/23 08:00 Pulse 68 04/03/23 09:00 Resp 32 H 04/03/23 09:00 BP 91/47 04/03/23 09:00 Pulse Ox 97 04/03/23 09:00 FiO2 60 04/03/23 08:00 Intake & Output 04/02/23 04/03/23 04/03/23 18:59 06:59 18:59 Intake Total 2569.175 0873.309 602.31 Output Total 1335 725 165 Balance 419.652 283.309 437.31 Weight 105.1 kg Intake: IV 760 320 66 0.9NS Pressure Bag 6 Cefepime 2 gm In Sodium 100 100 Chloride 0.9% 100 ml @ 25 mls/hr IVPB Q12H [facility] Rx# :[id number] Lactated Ringers 1,000 ml 160 220 60 @ 20 mls/hr IV .Q24H [facility] Rx#:[id number] Vancomycin 1,500 mg In 500 Sodium Chloride 0.9% 500 ml 500 ml @ 167 mls/hr IVPB Q24H [facility] Rx#: [id number] Intake, IV Titration 734.652 668.309 466.31 Amount Amiodarone 450 mg In 250 Dextrose 5% in Water 250 ml @ 0.5 MG/MIN 16.667 mls/hr IV .Q15H [facility] Rx#: [id number] Cisatracurium 200 mg In 0 177.088 Sodium Chloride 0.9% 180 ml @ 2 MCG/KG/MIN 12.42 mls/hr IV .[id number] [facility] Rx# :[id number] Norepinephrine 32 mg In 42.342 47.266 16.31 Sodium Chloride 0.9% 218 ml @ 0.03 MCG/KG/MIN 1. 364 mls/hr IV .Q24H [facility] Rx#:[id number] Vasopressin 60 unit In 142.086 Sodium Chloride 0.9% 150 ml @ 0.04 UNITS/MIN 6.12 mls/hr IV .Q24H [facility] Rx#: [id number] fentaNYL (PF). 1,000 mcg 264.864 161.110 100 In Sodium Chloride 0.9% 80 ml @ 0.5 MCG/KG/HR 5. 12 mls/hr IV .[id number] [facility] Rx#:[id number] propofoL 1,000 mg In 285.36 282.845 100 Empty Bag 1 bag @ 15 MCG/ KG/MIN 8.73 mls/hr IV . [id number] [facility] Rx#:[id number] Tube Feeding 200 20 40 Other 60 30 Output: Urine 1335 725 165 Other: Voiding Method Indwelling Catheter Indwelling Catheter ABP, PAP, CO, CI - Last Documented Arterial Blood Pressure 120/49 - Exam No acute distress, sedated, intubated, on a mechanical ventilator and the patient is also sedated and paralyzed. She senses the mechanical ventilator. Head exam was generally normal. There was no scleral icterus or corneal arcus. Mucous membranes were moist. HEENT examination is grossly unremarkable. The patient has a triple-lumen catheter in the right IJ Neck supple. Full range of motion. No adenopathy thyromegaly or neck vein distention. Cardiovascular examination reveals regular rhythm rate. S1-S2 normal. No S3 or S4. No discernible murmur noted. Lungs reveal scattered bilateral rhonchi. Breath sounds equal. Abdomen soft without bowel sounds. The bowel sounds are quite diminished and absent and the patient diffuse abdominal wall edema. No direct tenderness, no rebound tenderness, no guarding Extremities are intact. No cyanosis clubbing and there is diffuse anasarca and edema in all 4 extremities and the patient has a right brachial triple-lumen catheter. The patient is diminished pulses in all 4 extremities. Skin is without rash or lesion. The surgical wound is dry clean and intact Neurologic examination cannot be assessed at this time. - Labs CBC & Chem 7: 04/03/23 04:32 04/03/23 04:32 Labs: Abnormal Lab Results - Last 24 Hours (Table) 04/02/23 04/02/23 04/02/23 Range/Units 09:47 11:41 11:42 WBC (3.8-10.6) k/uL RBC (3.80-5.40) m/uL Hgb (11.4-16.0) gm/dL Hct (34.0-46.0) % MCV (80.0-100.0) fL Neutrophils # (Manual) (1.3-7.7) k/uL Eosinophils # (Manual) (0-0.7) k/uL Metamyelocytes # (Man) (0) k/uL Myelocytes # (Manual) (0) k/uL ABG pH 7.31 L (7.35-7.45) ABG pO2 82 L (83-108) mmHg ABG HCO3 18 L (21-25) mmol/L Sodium (137-145) mmol/L Carbon Dioxide (22-30) mmol/L BUN (7-17) mg/dL Glucose (74-99) mg/dL POC Glucose (mg/dL) 199 H (70-110) mg/dL Calcium (8.4-10.2) mg/dL Crossmatch See Detail 04/02/23 04/03/23 04/03/23 Range/Units 17:45 00:28 04:32 WBC (3.8-10.6) k/uL RBC (3.80-5.40) m/uL Hgb (11.4-16.0) gm/dL Hct (34.0-46.0) % MCV (80.0-100.0) fL Neutrophils # (Manual) (1.3-7.7) k/uL Eosinophils # (Manual) (0-0.7) k/uL Metamyelocytes # (Man) (0) k/uL Myelocytes # (Manual) (0) k/uL ABG pH (7.35-7.45) ABG pO2 (83-108) mmHg ABG HCO3 (21-25) mmol/L Sodium 134 L (137-145) mmol/L Carbon Dioxide 17 L (22-30) mmol/L BUN 19 H (7-17) mg/dL Glucose 149 H (74-99) mg/dL POC Glucose (mg/dL) 211 H 180 H (70-110) mg/dL Calcium 7.6 L (8.4-10.2) mg/dL Crossmatch 04/03/23 04/03/23 04/03/23 Range/Units 04:32 05:52 05:54 WBC 17.0 H (3.8-10.6) k/uL RBC 2.42 L (3.80-5.40) m/uL Hgb 8.3 L (11.4-16.0) gm/dL Hct 24.8 L (34.0-46.0) % MCV 102.8 H (80.0-100.0) fL Neutrophils # (Manual) 12.90 H (1.3-7.7) k/uL Eosinophils # (Manual) 1.70 H (0-0.7) k/uL Metamyelocytes # (Man) 0.17 H (0) k/uL Myelocytes # (Manual) 0.68 H (0) k/uL ABG pH 7.21 L (7.35-7.45) ABG pO2 (83-108) mmHg ABG HCO3 18 L (21-25) mmol/L Sodium (137-145) mmol/L Carbon Dioxide (22-30) mmol/L BUN (7-17) mg/dL Glucose (74-99) mg/dL POC Glucose (mg/dL) 171 H (70-110) mg/dL Calcium (8.4-10.2) mg/dL Crossmatch Assessment and Plan Plan: Acute hypoxemic respiratory failure, requiring intubation and mechanical ventilation, subsequent to repair of a dural tear, secondary to a large-volume gastric aspiration. S/P intubation and mechanical ventilation, for respiratory failure, 03/29/2023. Presentation is typical of post aspiration pneumonia with secondary ARDS and the patient is currently sedated and paralyzed. Acute respiratory distress syndrome. Aspiration pneumonia secondary to Enterobacter and Klebsiella Acute Atrial fibrillation with RVR. The current cardiac rhythm is sinus and the patient remains on amiodarone maintenance. Echo cardiac exam shows a preserved LV function without any significant valvular abnormalities Lumbar spondylosis and spondylolisthesis, the initial surgery was done on 03/21/2023 status post postop day #12, T10 to pelvic decompression and fusion. The patient was taken back to the operating room on 03/29/2023 for repair of a dural leak Severe hypotension, likely secondary to sepsis, currently on norepinephrine and vasopressin. The patient has been running at a lower dose of norepinephrine at 0.08 microvascular kilogram per minute and the patient is also on vasopressin physiologic dose Non-anion gap metabolic acidosis. History of lumbar radiculopathy. Type 2 diabetes mellitus. The patient is on sliding scale insulin coverage Benign essential hypertension. History of hyperlipidemia. Plan: Keep the patient sedated with accommodation of fentanyl and propofol Give the patient paralytic holiday Keep the patient nothing by mouth for today Monitor the gastric residuals Start the patient on bicarb infusion at the rate of 75 mL an hour Start the patient on Lasix 20 mg IV every 12 hours. Noted the patient has been in significant positive fluid balance and would like to keep her in a negative balance as long as his blood pressure tolerates Avoid using metoprolol for now Continue amiodarone Continue IV cefepime Start the patient on Solu-Medrol 40 mg every 12 hours and continue with slight scale insulin coverage, use insulin drip if needed especially the patient is going to be placed on steroids and bicarb infusion that includes D5 Keep the tube feeds on hold Push the orotracheal tube by another centimeter into the mercy We'll continue to follow. We will monitor the acid-base status and hopefully there will be some improvement after correcting the patient's acid-base status. Conditions other significant critical continue to follow make further recommendations based on her progress. Time with Patient: Greater than 30
[2023-04-03] MEDS: METOPROLOL TARTRATE 12.5 MG TAB PO SCH ×2 (11:34→22:08)
[2023-04-03] MEDS: methylPREDNISolone SOD SUCCI 40 MG/ML 1 ML VIAL IV SCH ×2 (11:38→22:07)
[2023-04-03] MEDS: FUROSEMIDE 10 MG/ML 2 ML VIAL IV SCH ×2 (11:38→22:07)
[2023-04-03] MEDS: LACTATED RINGERS 1,000 ML IV SCH (11:38)
[2023-04-03 11:59] LABS: Glucose,Whole Blood 179 mg/dL (70-110)
[2023-04-03] MEDS ORDERED: METHYLNALTREXONE BROMIDE 12 MG/0.6 ML SYRINGE SQ ONE (12:00)
[2023-04-03] MEDS: bisacodyL 10 MG SUPP RECTAL PRN (12:21)
[2023-04-03] MEDS: DEXTROSE 5% IN WATER 1,000 ML with SODIUM BICARB (1 MEQ/ML) 150 ML IV SCH (12:29)
--- NOTE | 2023-04-03 12:41 | P.PN ---
Subjective Progress Note Date: 04/03/23 Pts pressor req improved to vasopressin 0.4 and 0.06 levophed. Saturating better on 40% FiO2 , 10 PEEP. CVP is 13-14. Back in A Fib. Started metoprolol and resumed amiodarone. UOP dropped, rec'd lasix. No sedation holiday today. No BM yet. Gen: awake, alert HEENT: normocephalic, atraumatic, good hearing acuity, moist mucous membranes Resp: good air exchange, breathing comfortably with no accessory muscle use CVS: good distal perfusion x 4, GI: soft, NTTP, ND : no SPT, no CVAT, archuleta catheter is present MSK: no pitting edema, no clubbing Neuro: non-focal, moving all extremities Psych: cooperative, euthymic mood Hospital course: Patient is a 72-year-old female with dyslipidemia, hypertension, [id number] diabetes mellitus type 2 who presented for elective T10 to pelvis decompression and fusion. Medicine was consulted for medical management. She underwent successful decompression and fusion on 03/21, however, her postoperative hospital course was complicated by positional headache suspicious for CSF leak. Because currently, she was taken back to the operating room on for CSF repair. Prior to the procedure, during the intubation process, patient was noted to have significant amounts of the aspirate emesis and oropharynx which was suctioned, and after intubation she was noted to have 1.2 L of gastric output from OG tube. Throughout her operation, she was noted to be increasingly hypoxic with increasing FiO2 requirement. Postoperatively became hypotensive down to the 70s over 30s in addition to hypoxia down to the mid 60s despite FiO2 of 100% and PEEP of 12. Patient was transferred to the ICU, started on the Levophed. Differential diagnosis of septic shock secondary to meningitis versus aspiration pneumonia as well as hypovolemic shock secondary to CSF volume loss were considered. Patient was given 3 L of lactated Ringer's in addition to being started on levo fed. Chest x-ray postoperatively on 03/29 demonstrated diffuse pulmonary edema with concern for ARDS superimposed on aspiration. Patient was started empirically on antibiotics including vancomycin, ceftriaxone, Unasyn to cover both meningitis as well as aspiration pneumonia, ID consultation was requested. Sputum culture taken and they ICU was positive for Klebsiella and Enterobacter with variable resistance. Pro- calcitonin was elevated at 6.7. Patient CVP was monitored and remained stable between 13 and 15. Echocardiogram demonstrated preserved ejection fraction, mild TR, moderate pulmonary hypertension. Patient was noted to not have a bowel movement in approximately 5 days as of 03/29, Gen. surgery was consulted for ileus. Patient also developed sepsis induced atrial fibrillation with RVR, was started on amiodarone drip and converted back to normal sinus rhythm. She is placed on metoprolol once her pressor requirements started to decrease on 04/01, however, this was held after pressor requirements increased again on 04/03. Discussed with orthopedic surgery that no anticoagulation will be given for atrial fibrillation during the critical phase, but can be initiated once patient is able to be transitioned to the floor. Assessment: Septic shock, aspiration pneumonia ARDS secondary to septic shock Postoperative ileus, complicated by narcotic requirement Acute blood loss anemia Diabetes type 2 Hyperlipidemia Hypertension Plan: Shock, Septic Multi-focal pneumonia Ventilator Dependent Acute Hypoxemic and Hypercarbic Respiratory Failure Postoperative ileus -Continue levophed, vasopressin -Discontinue vancomycin, start Zosyn, discussed this with infectious disease today -continue propofol, Nimbex holiday -Bowel regimen will be added: miralax, senokot-S, bisacodyl suppository, reglan IV, lactulose, -ordered methyl-naltrexone for administration 04/03 Sepsis induced atrial fibrillation with RVR, paroxysmal -Amiodarone drip, discontinued by pulmonology -Metoprolol 12.5 g twice a day, held by pulmonology -Patient will require anticoagulation when she is no longer critical 72-year-old female status post T10 to pelvis decompression with fusion Increase drainage from surgical incision s/p CSF repair on 03/29 - Orthospine note reviewed. Monitoring drainage, abdominal binder, and fioricet. Acute blood loss anemia -Anticipated outcome of surgery -Follow CBC -Ferrous sulfate 325 mg daily Diabetes mellitus type 2 -Hold metformin -Sliding-scale insulin -Follow blood sugars Dyslipidemia -Gemfibrozil Hypertension -Lisinopril 30 mg daily, continue to hold her Lisinopril/hydrochlorothiazide - follow BP DVT prophylaxis: Heparin Thank you for allowing us to participate in the care of this pleasant patient. Do not hesitate to contact us with questions. Someone can be reached from the [facility] hospitalist group all hours of the day at [phone] or via perfect serve. Objective - Vital Signs Vital signs: Vital Signs Temp 98.2 F 04/03/23 12:00 Pulse 74 04/03/23 12:00 Resp 32 H 04/03/23 12:00 BP 95/53 04/03/23 12:00 Pulse Ox 96 04/03/23 12:00 FiO2 60 04/03/23 12:00 Intake & Output 04/02/23 04/03/23 04/03/23 18:59 06:59 18:59 Intake Total 9309.068 5562.309 753.275 Output Total 3577 211 7131 Balance 419.652 283.309 -261.725 Weight 105.1 kg 105.1 kg Intake: IV 760 320 135 0.9NS Pressure Bag 15 Cefepime 2 gm In Sodium 100 100 Chloride 0.9% 100 ml @ 25 mls/hr IVPB Q12H [facility] Rx# :[id number] Lactated Ringers 1,000 ml 160 220 120 @ 20 mls/hr IV .Q24H [facility] Rx#:[id number] Vancomycin 1,500 mg In 500 Sodium Chloride 0.9% 500 ml 500 ml @ 167 mls/hr IVPB Q24H [facility] Rx#: [id number] Intake, IV Titration 734.652 668.309 548.275 Amount Amiodarone 450 mg In 250 Dextrose 5% in Water 250 ml @ 0.5 MG/MIN 16.667 mls/hr IV .Q15H [facility] Rx#: [id number] Cisatracurium 200 mg In 0 177.088 Sodium Chloride 0.9% 180 ml @ 2 MCG/KG/MIN 12.42 mls/hr IV .Q16H7M [facility] Rx# :[id number] Norepinephrine 32 mg In 42.342 47.266 16.31 Sodium Chloride 0.9% 218 ml @ 0.03 MCG/KG/MIN 1. 364 mls/hr IV .Q24H [facility] Rx#:[id number] Vasopressin 60 unit In 142.086 Sodium Chloride 0.9% 150 ml @ 0.04 UNITS/MIN 6.12 mls/hr IV .Q24H [facility] Rx#: [id number] fentaNYL (PF). 1,000 mcg 264.864 161.110 100 In Sodium Chloride 0.9% 80 ml @ 0.5 MCG/KG/HR 5. 12 mls/hr IV .[id number] [facility] Rx#:[id number] propofoL 1,000 mg In 285.36 282.845 181.965 Empty Bag 1 bag @ 15 MCG/ KG/MIN 8.73 mls/hr IV . [id number] [facility] Rx#:[id number] Tube Feeding 200 20 40 Other 60 30 Output: Urine 1335 725 315 Oral Regurgitation 700 Other: Voiding Method Indwelling Catheter Indwelling Catheter ABP, PAP, CO, CI - Last Documented Arterial Blood Pressure 139/54 - Labs CBC & Chem 7: 04/03/23 04:32 04/03/23 04:32 Labs: Abnormal Lab Results - Last 24 Hours (Table) 04/02/23 04/02/23 04/03/23 Range/Units 11:42 17:45 00:28 WBC (3.8-10.6) k/uL RBC (3.80-5.40) m/uL Hgb (11.4-16.0) gm/dL Hct (34.0-46.0) % MCV (80.0-100.0) fL Neutrophils # (Manual) (1.3-7.7) k/uL Eosinophils # (Manual) (0-0.7) k/uL Metamyelocytes # (Man) (0) k/uL Myelocytes # (Manual) (0) k/uL ABG pH (7.35-7.45) ABG HCO3 (21-25) mmol/L Sodium (137-145) mmol/L Carbon Dioxide (22-30) mmol/L BUN (7-17) mg/dL Glucose (74-99) mg/dL POC Glucose (mg/dL) 211 H 180 H (70-110) mg/dL Calcium (8.4-10.2) mg/dL Crossmatch See Detail 04/03/23 04/03/23 04/03/23 Range/Units 04:32 04:32 05:52 WBC 17.0 H (3.8-10.6) k/uL RBC 2.42 L (3.80-5.40) m/uL Hgb 8.3 L (11.4-16.0) gm/dL Hct 24.8 L (34.0-46.0) % MCV 102.8 H (80.0-100.0) fL Neutrophils # (Manual) 12.90 H (1.3-7.7) k/uL Eosinophils # (Manual) 1.70 H (0-0.7) k/uL Metamyelocytes # (Man) 0.17 H (0) k/uL Myelocytes # (Manual) 0.68 H (0) k/uL ABG pH 7.21 L (7.35-7.45) ABG HCO3 18 L (21-25) mmol/L Sodium 134 L (137-145) mmol/L Carbon Dioxide 17 L (22-30) mmol/L BUN 19 H (7-17) mg/dL Glucose 149 H (74-99) mg/dL POC Glucose (mg/dL) (70-110) mg/dL Calcium 7.6 L (8.4-10.2) mg/dL Crossmatch 04/03/23 04/03/23 Range/Units 05:54 11:57 WBC (3.8-10.6) k/uL RBC (3.80-5.40) m/uL Hgb (11.4-16.0) gm/dL Hct (34.0-46.0) % MCV (80.0-100.0) fL Neutrophils # (Manual) (1.3-7.7) k/uL Eosinophils # (Manual) (0-0.7) k/uL Metamyelocytes # (Man) (0) k/uL Myelocytes # (Manual) (0) k/uL ABG pH (7.35-7.45) ABG HCO3 (21-25) mmol/L Sodium (137-145) mmol/L Carbon Dioxide (22-30) mmol/L BUN (7-17) mg/dL Glucose (74-99) mg/dL POC Glucose (mg/dL) 171 H 179 H (70-110) mg/dL Calcium (8.4-10.2) mg/dL Crossmatch
[2023-04-03] MEDS: PIPERACILLIN-TAZOBACTAM 3.375 GM in SODIUM CHLORIDE 0.9% 100 ML IVPB SCH (12:51)
--- NOTE | 2023-04-03 14:46 | P.PN ---
Subjective Progress Note Date: 04/03/23 CHIEF COMPLAINT: Back pain HISTORY OF PRESENT ILLNESS: Patient remains in the ICU and on mechanical venti lation. Patient had been on tube feeds she had 700 mL residual this morning. 2 feeds have been placed on hold. No bowel movement since 03/26/2023. Patient being admitted for postop ileus. She is on Reglan and Dulcolax suppositories. She received lactulose 2. Afebrile. WBC 1517 HB8.3 platelets 212 sodium 134 creatinine 0.88 PHYSICAL EXAM: VITAL SIGNS: Reviewed. GENERAL: Well-developed in no acute distress. ABDOMEN: Soft. Distended. Tympanic NEUROLOGIC: Sedated and on mechanical ventilation ASSESSMENT: 1. Postop ileus 2. Status post T10 to pelvis decompression with fusion with drainage from surgical site status post irrigation and debridement 3. Possible aspiration pneumonia PLAN: -Agree with holding tube feeds -Continue NG tube decompression -Continue Reglan 10 mg IV every 6 hours -Continue Dulcolax suppository daily -Medicine service has added Relistor -Continue ICU management and supportive care Physician Camera Tuning Engineer note has been reviewed by physician. Signing provider agrees with the documented findings, assessment, and plan of care. I have personally seen and examined the patient, reviewed the PROMPT CARE RN /PAs history, exam and MDM and agree with the assessment and plan as written. Based on total visit time, I have performed more than 50% of the visit. As above: Patient remains in the ICU. Remains on pressors. No bowel function. CAT scan yesterday and abdominal x-ray showed persistent gastric and intestinal distention. Keep nothing by mouth. No tube feeds for now. Dulcolax suppositories daily. Will follow. Objective - Vital Signs Vital signs: Vital Signs Temp 98.2 F 04/03/23 12:00 Pulse 74 04/03/23 12:00 Resp 32 H 04/03/23 12:00 BP 95/53 04/03/23 12:00 Pulse Ox 96 04/03/23 12:00 FiO2 60 04/03/23 12:00 Intake & Output 04/02/23 04/03/23 04/03/23 18:59 06:59 18:59 Intake Total 7414.332 3462.309 1045.023 Output Total 2453 848 7709 Balance 419.652 283.309 30.023 Weight 105.1 kg 105.1 kg Intake: IV 760 320 135 0.9NS Pressure Bag 15 Cefepime 2 gm In Sodium 100 100 Chloride 0.9% 100 ml @ 25 mls/hr IVPB Q12H [facility] Rx# :[id number] Lactated Ringers 1,000 ml 160 220 120 @ 20 mls/hr IV .Q24H [facility] Rx#:[id number] Vancomycin 1,500 mg In 500 Sodium Chloride 0.9% 500 ml 500 ml @ 167 mls/hr IVPB Q24H [facility] Rx#: [id number] Intake, IV Titration 734.652 668.309 840.023 Amount Amiodarone 450 mg In 250 Dextrose 5% in Water 250 ml @ 0.5 MG/MIN 16.667 mls/hr IV .Q15H [facility] Rx#: [id number] Cisatracurium 200 mg In 0 177.088 196.857 Sodium Chloride 0.9% 180 ml @ 2 MCG/KG/MIN 12.42 mls/hr IV .Q16H7M [facility] Rx# :[id number] Norepinephrine 32 mg In 42.342 47.266 16.31 Sodium Chloride 0.9% 218 ml @ 0.03 MCG/KG/MIN 1. 364 mls/hr IV .Q24H [facility] Rx#:[id number] Vasopressin 60 unit In 142.086 Sodium Chloride 0.9% 150 ml @ 0.04 UNITS/MIN 6.12 mls/hr IV .Q24H [facility] Rx#: [id number] fentaNYL (PF). 1,000 mcg 264.864 161.110 194.891 In Sodium Chloride 0.9% 80 ml @ 0.5 MCG/KG/HR 5. 12 mls/hr IV .[id number] [facility] Rx#:[id number] propofoL 1,000 mg In 285.36 282.845 181.965 Empty Bag 1 bag @ 15 MCG/ KG/MIN 8.73 mls/hr IV . [id number] [facility] Rx#:[id number] Tube Feeding 200 20 40 Other 60 30 Output: Urine 1335 725 315 Oral Regurgitation 700 Other: Voiding Method Indwelling Catheter Indwelling Catheter ABP, PAP, CO, CI - Last Documented Arterial Blood Pressure 139/54 - Labs CBC & Chem 7: 04/03/23 04:32 04/03/23 04:32 Labs: Abnormal Lab Results - Last 24 Hours (Table) 04/02/23 04/02/23 04/03/23 Range/Units 11:42 17:45 00:28 WBC (3.8-10.6) k/uL RBC (3.80-5.40) m/uL Hgb (11.4-16.0) gm/dL Hct (34.0-46.0) % MCV (80.0-100.0) fL Neutrophils # (Manual) (1.3-7.7) k/uL Eosinophils # (Manual) (0-0.7) k/uL Metamyelocytes # (Man) (0) k/uL Myelocytes # (Manual) (0) k/uL ABG pH (7.35-7.45) ABG HCO3 (21-25) mmol/L Sodium (137-145) mmol/L Carbon Dioxide (22-30) mmol/L BUN (7-17) mg/dL Glucose (74-99) mg/dL POC Glucose (mg/dL) 211 H 180 H (70-110) mg/dL Calcium (8.4-10.2) mg/dL Crossmatch See Detail 04/03/23 04/03/23 04/03/23 Range/Units 04:32 04:32 05:52 WBC 17.0 H (3.8-10.6) k/uL RBC 2.42 L (3.80-5.40) m/uL Hgb 8.3 L (11.4-16.0) gm/dL Hct 24.8 L (34.0-46.0) % MCV 102.8 H (80.0-100.0) fL Neutrophils # (Manual) 12.90 H (1.3-7.7) k/uL Eosinophils # (Manual) 1.70 H (0-0.7) k/uL Metamyelocytes # (Man) 0.17 H (0) k/uL Myelocytes # (Manual) 0.68 H (0) k/uL ABG pH 7.21 L (7.35-7.45) ABG HCO3 18 L (21-25) mmol/L Sodium 134 L (137-145) mmol/L Carbon Dioxide 17 L (22-30) mmol/L BUN 19 H (7-17) mg/dL Glucose 149 H (74-99) mg/dL POC Glucose (mg/dL) (70-110) mg/dL Calcium 7.6 L (8.4-10.2) mg/dL Crossmatch 04/03/23 04/03/23 Range/Units 05:54 11:57 WBC (3.8-10.6) k/uL RBC (3.80-5.40) m/uL Hgb (11.4-16.0) gm/dL Hct (34.0-46.0) % MCV (80.0-100.0) fL Neutrophils # (Manual) (1.3-7.7) k/uL Eosinophils # (Manual) (0-0.7) k/uL Metamyelocytes # (Man) (0) k/uL Myelocytes # (Manual) (0) k/uL ABG pH (7.35-7.45) ABG HCO3 (21-25) mmol/L Sodium (137-145) mmol/L Carbon Dioxide (22-30) mmol/L BUN (7-17) mg/dL Glucose (74-99) mg/dL POC Glucose (mg/dL) 171 H 179 H (70-110) mg/dL Calcium (8.4-10.2) mg/dL Crossmatch
[2023-04-03] MEDS: HEPARIN SODIUM,PORCINE/PF 5,000 UNIT/0.5 ML SYRINGE SQ SCH (16:41)
[2023-04-03] MEDS ORDERED: DEXTROSE 50% SYRINGE 50 ML IVP PRN ×2 (16:46)
[2023-04-03 16:47] LABS: Glucose,Whole Blood 225 mg/dL (70-110)
[2023-04-03] MEDS ORDERED: INSULIN REGULAR BOLUS (FROM DRIP BAG) IV PRN (17:00)
[2023-04-03] MEDS: INSULIN REGULAR 100 UNIT in SODIUM CHLORIDE 0.9% 100 ML IV SCH (17:40)
[2023-04-03 17:59] LABS: Glucose,Whole Blood 217 mg/dL (70-110)
[2023-04-03] MEDS ORDERED: AMIODARONE 450 MG in DEXTROSE 5% IN WATER 250 ML IV SCH ×2 (18:15)
[2023-04-03 19:00] LABS: Glucose,Whole Blood 186 mg/dL (70-110)
[2023-04-03 20:00] LABS: Glucose,Whole Blood 169 mg/dL (70-110)
[2023-04-03] MEDS: VASOPRESSIN 60 UNIT in SODIUM CHLORIDE 0.9% 150 ML IV SCH (20:26)
[2023-04-03 21:06] LABS: Glucose,Whole Blood 176 mg/dL (70-110)
[2023-04-03 22:09] LABS: Glucose,Whole Blood 177 mg/dL (70-110)
[2023-04-03 23:16] LABS: Glucose,Whole Blood 174 mg/dL (70-110)
[2023-04-03] MEDS: NOREPINEPHRINE 32 MG in SODIUM CHLORIDE 0.9% 218 ML IV SCH (23:20)
[2023-04-04 00:08] LABS: Glucose,Whole Blood 173 mg/dL (70-110)
[2023-04-04] MEDS: GABAPENTIN 100 MG CAP PO SCH ×4 (00:10→22:31)
[2023-04-04] MEDS: INSULIN ASPART (NovoLOG) 100 UNIT/ML VIAL SQ SCH ×2 (00:11→06:33)
[2023-04-04] MEDS: PIPERACILLIN-TAZOBACTAM 3.375 GM in SODIUM CHLORIDE 0.9% 100 ML IVPB SCH ×4 (00:12→23:23)
[2023-04-04] MEDS: HEPARIN SODIUM,PORCINE/PF 5,000 UNIT/0.5 ML SYRINGE SQ SCH ×3 (00:44→16:38)
[2023-04-04] MEDS: DEXTROSE 5% IN WATER 1,000 ML with SODIUM BICARB (1 MEQ/ML) 150 ML IV SCH ×2 (01:27→20:08)
[2023-04-04] MEDS: HYDROmorphone 1 MG/ML 1 ML SYRINGE IVP SCH ×3 (01:28→10:10)
[2023-04-04] MEDS: METOCLOPRAMIDE 5 MG/ML 2 ML VIAL IVP SCH ×5 (01:53→23:23)
[2023-04-04 01:59] LABS: Glucose,Whole Blood 164 mg/dL (70-110)
[2023-04-04] MEDS: fentaNYL (PF). 1,000 MCG in SODIUM CHLORIDE 0.9% 80 ML IV SCH ×3 (03:00→20:05)
[2023-04-04 03:17] LABS: Glucose,Whole Blood 154 mg/dL (70-110)
[2023-04-04] MEDS: IPRATROPIUM-ALBUTEROL 3 ML NEB INHALATION SCH ×6 (03:48→23:23)
[2023-04-04 04:06] LABS: Glucose,Whole Blood 150 mg/dL (70-110)
[2023-04-04 05:11] LABS: African American GFR (CKD) >90 (>60 ml/min/1.73 sqM); Anion Gap 7 mmol/L; Blood Urea Nitrogen 20 mg/dL (7-17); Calcium 7.3 mg/dL (8.4-10.2); Carbon Dioxide 20 mmol/L (22-30); Chloride 104 mmol/L (98-107); Glucose 129 mg/dL (74-99); Non-African American GFR(CKD) 79 (>60 ml/min/1.73 sqM); Potassium 3.7 mmol/L (3.5-5.1); Sodium 131 mmol/L (137-145)
[2023-04-04 05:21] LABS: HCT 22.5 % (34.0-46.0); HGB 7.8 gm/dL (11.4-16.0); Hypochromasia Moderate; MCH 34.8 pg (25.0-35.0); MCHC 34.6 g/dL (31.0-37.0); MCV 100.7 fL (80.0-100.0); Macrocytosis Slight; Mean Platelet Volume 8.7; Platelet Count 183 k/uL (150-450); Poikilocytosis Slight; RBC 2.23 m/uL (3.80-5.40); RDW 14.7 % (11.5-15.5); WBC 15.1 k/uL (3.8-10.6)
[2023-04-04] MEDS: POTASSIUM CHLORIDE 10 MEQ in WATER FOR INJECTION 1 100ML.BAG IVPB SCH ×7 (05:32→22:31)
[2023-04-04 05:43] LABS: Glucose,Whole Blood 151 mg/dL (70-110)
[2023-04-04 05:46] LABS: Anisocytosis (M) Present; Band Neutrophils % 8 %; Lymphocytes # (M) 0.45 k/uL (1.0-4.8); Metamyelocytes # (M) 0.45 k/uL (0); Metamyelocytes % 3 %; Neutrophils % (M) 84 %; Nucleated Red Blood Cells 0 /100 WBC (0-0); Polychromasia Present; Tear Drop Cells Present; Total Cells Counted 100; Toxic Granulation Present; Toxic Vacuolation Present
[2023-04-04 05:50] LABS: ABG Base Excess -5.3 mmol/L; ABG HCO3 21 mmol/L (21-25); ABG Oxygen Saturation 99.1 % (94-97); ABG PCO2 42 mmHg (35-45); ABG PH 7.31 (7.35-7.45); ABG PO2 186 mmHg (83-108); ABG TCO2 22 mmol/L (19-24); Allen Test Performed? Yes
[2023-04-04 06:10] LABS: Glucose,Whole Blood 148 mg/dL (70-110)
[2023-04-04 06:58] LABS: Glucose,Whole Blood 149 mg/dL (70-110)
[2023-04-04] MEDS: CHLORHEXIDINE GLUCONATE 15 ML CUP MUCOUS MEM SCH ×2 (07:48→20:23)
[2023-04-04] MEDS: SENNOSIDES-DOCUSATE SODIUM 1 EACH TAB PO SCH ×2 (07:54→20:23)
[2023-04-04] MEDS: polyethylene glycoL 3350 17 GM POWD.PACK PO SCH (07:56)
[2023-04-04 07:59] LABS: Glucose,Whole Blood 152 mg/dL (70-110)
[2023-04-04] MEDS: FUROSEMIDE 10 MG/ML 2 ML VIAL IV SCH (08:13)
[2023-04-04] MEDS: methylPREDNISolone SOD SUCCI 40 MG/ML 1 ML VIAL IV SCH ×2 (08:14→20:23)
[2023-04-04] MEDS: bisacodyL 10 MG SUPP RECTAL SCH (08:14)
[2023-04-04] MEDS: PANTOPRAZOLE 40 MG/10 ML VIAL IV SCH (08:14)
[2023-04-04] MEDS: ARTIFICIAL TEARS-HYPROMELLOSE DROPS 15 ML BTL BOTH EYES SCH ×4 (08:15→22:31)
--- NOTE | 2023-04-04 08:32 | P.PN ---
Subjective Progress Note Date: 04/04/23 Principal diagnosis: 1. L1-S1 spondylosis with stenosis 2. L1-S1 spondylolisthesis 3. Lower extremity radiculopathy 4. Low back pain 5. Lower extremity weakness Patient seen and examined this morning. Patient is currently sedated on mechanical ventilation, Nimbex is currently off and patient seems to be tolerating well. Current vitals BP 131/47, HR 56, Resp 32, O2 sat 98%. Vent settings have been decreased to FiO2 50%, PEEP 12. Patient currently is on vasopressin, levophed, and amiodarone; these medications have been titrated down over the last 4 hours. material handler 2nd shift RN has reported a gastric output through NG tube of 850mls in the last 24 hours. Aggressive bowel regimen has been provided with no result at this time. Last BM documented is 03/25/23. Patient was turned to her right side this morning to change dressing and she had passed a large amount of gas. Staff to turn patient on her side if she can tolerate to assist with GI motility. Surgical dressing has been changed this morning, Incision is well approximated with trinh and sutures intact. No active drainage noted. There is +3 pitting edema noted to bilateral upper and lower extremities. Patient is currently receiving IV lasix and is having good output through archuleta catheter, urine remains lee in color. SCDs and Prafo boots are present to lower extremities. Encourage for PT to perform ROM exercises to her extremities and joints. Objective - Vital Signs Vital signs: Vital Signs Temp 97.7 F 04/04/23 00:00 Pulse 56 L 04/04/23 07:00 Resp 32 H 04/04/23 07:00 BP 94/47 04/04/23 07:00 Pulse Ox 98 04/04/23 07:00 FiO2 50 04/04/23 07:36 Intake & Output 04/03/23 04/04/23 04/04/23 18:59 06:59 18:59 Intake Total 7029.798 1351.588 177.54 Output Total 1750 1855 25 Balance -156.011 12.588 152.54 Weight 105.1 kg 108.6 kg Intake: IV 323 216 23 0.9NS Pressure Bag 33 36 3 Lactated Ringers 1,000 ml 240 180 20 @ 20 mls/hr IV .Q24H [facility] Rx#:[id number] ceFAZolin 2 gm In Sodium 50 Chloride 0.9% 50 ml @ 100 mls/hr IVPB Q8H [facility] Rx#: [id number] Intake, IV Titration 3269.368 6554.588 154.54 Amount Amiodarone 450 mg In 250 Dextrose 5% in Water 250 ml @ 0.5 MG/MIN 16.667 mls/hr IV .Q15H [facility] Rx#: [id number] Cisatracurium 200 mg In 196.857 Sodium Chloride 0.9% 180 ml @ 2 MCG/KG/MIN 12.42 mls/hr IV .Q16H7M [facility] Rx# :[id number] Dextrose 5% in Water 1, 825 75 000 ml @ 75 mls/hr IV . [id number] [facility] with Sodium Bicarb (1 Meq/ml) 150 ml Rx#:[id number] Insulin Regular 100 unit 2.121 48.178 In Sodium Chloride 0.9% 100 ml @ Per Protocol IV .Q0M [facility] Rx#:[id number] Lactated Ringers 1,000 ml 60 @ 20 mls/hr IV .Q24H [facility] Rx#:[id number] Norepinephrine 32 mg In 32.384 31.001 Sodium Chloride 0.9% 218 ml @ 0.03 MCG/KG/MIN 1. 364 mls/hr IV .Q24H [facility] Rx#:[id number] Piperacillin-Tazobactam 3 100 .375 gm In Sodium Chloride 0.9% 100 ml @ 25 mls/hr IVPB Q8HR [facility] Rx# :[id number] Potassium Chloride 10 meq 100 In Water For Injection 1 100ml.bag @ 100 mls/hr IVPB Q1H [facility] Rx#: [id number] Vasopressin 60 unit In 153 Sodium Chloride 0.9% 150 ml @ 0.04 UNITS/MIN 6.12 mls/hr IV .Q24H [facility] Rx#: [id number] fentaNYL (PF). 1,000 mcg 284.662 209.899 In Sodium Chloride 0.9% 80 ml @ 0.5 MCG/KG/HR 5. 12 mls/hr IV .[id number] [facility] Rx#:[id number] propofoL 1,000 mg In 281.965 277.510 79.54 Empty Bag 1 bag @ 15 MCG/ KG/MIN 8.73 mls/hr IV . [id number] [facility] Rx#:[id number] Tube Feeding 40 Other 30 Output: Urine 750 1305 25 Oral Regurgitation 1000 550 Other: Voiding Method Indwelling Catheter Indwelling Catheter ABP, PAP, CO, CI - Last Documented Arterial Blood Pressure 131/47 - Exam Physical Examination Patient remains sedated and on Mechanical ventilation, settings currently FIO2 50%, PEEP 12, O2 sat 98% Inspection: Dressing to surgical incision is clean, dry, and intact, incision is well approximated with trinh and sutures intact. +3 pitting edema noted to bilateral upper and lower extremities. Archuleta catheter remains in place and patent. SCDs and Prafo boots are present to lower extremities. Neurovascular: Radial pulse intact, 2+ bilaterally. Cap refill under 3 seconds in digits upper extremities. - Labs CBC & Chem 7: 04/04/23 04:12 04/04/23 04:12 Labs: Abnormal Lab Results - Last 24 Hours (Table) 04/02/23 04/03/23 04/03/23 Range/Units 11:42 11:57 16:45 WBC (3.8-10.6) k/uL RBC (3.80-5.40) m/uL Hgb (11.4-16.0) gm/dL Hct (34.0-46.0) % MCV (80.0-100.0) fL Neutrophils # (Manual) (1.3-7.7) k/uL Lymphocytes # (Manual) (1.0-4.8) k/uL Metamyelocytes # (Man) (0) k/uL ABG pH (7.35-7.45) ABG pO2 (83-108) mmHg ABG O2 Saturation (94-97) % Sodium (137-145) mmol/L Carbon Dioxide (22-30) mmol/L BUN (7-17) mg/dL Glucose (74-99) mg/dL POC Glucose (mg/dL) 179 H 225 H (70-110) mg/dL Calcium (8.4-10.2) mg/dL Crossmatch See Detail 04/03/23 04/03/23 04/03/23 Range/Units 17:57 18:59 19:58 WBC (3.8-10.6) k/uL RBC (3.80-5.40) m/uL Hgb (11.4-16.0) gm/dL Hct (34.0-46.0) % MCV (80.0-100.0) fL Neutrophils # (Manual) (1.3-7.7) k/uL Lymphocytes # (Manual) (1.0-4.8) k/uL Metamyelocytes # (Man) (0) k/uL ABG pH (7.35-7.45) ABG pO2 (83-108) mmHg ABG O2 Saturation (94-97) % Sodium (137-145) mmol/L Carbon Dioxide (22-30) mmol/L BUN (7-17) mg/dL Glucose (74-99) mg/dL POC Glucose (mg/dL) 217 H 186 H 169 H (70-110) mg/dL Calcium (8.4-10.2) mg/dL Crossmatch 04/03/23 04/03/23 04/03/23 Range/Units 21:04 22:07 23:15 WBC (3.8-10.6) k/uL RBC (3.80-5.40) m/uL Hgb (11.4-16.0) gm/dL Hct (34.0-46.0) % MCV (80.0-100.0) fL Neutrophils # (Manual) (1.3-7.7) k/uL Lymphocytes # (Manual) (1.0-4.8) k/uL Metamyelocytes # (Man) (0) k/uL ABG pH (7.35-7.45) ABG pO2 (83-108) mmHg ABG O2 Saturation (94-97) % Sodium (137-145) mmol/L Carbon Dioxide (22-30) mmol/L BUN (7-17) mg/dL Glucose (74-99) mg/dL POC Glucose (mg/dL) 176 H 177 H 174 H (70-110) mg/dL Calcium (8.4-10.2) mg/dL Crossmatch 04/04/23 04/04/23 04/04/23 Range/Units 00:06 01:58 03:15 WBC (3.8-10.6) k/uL RBC (3.80-5.40) m/uL Hgb (11.4-16.0) gm/dL Hct (34.0-46.0) % MCV (80.0-100.0) fL Neutrophils # (Manual) (1.3-7.7) k/uL Lymphocytes # (Manual) (1.0-4.8) k/uL Metamyelocytes # (Man) (0) k/uL ABG pH (7.35-7.45) ABG pO2 (83-108) mmHg ABG O2 Saturation (94-97) % Sodium (137-145) mmol/L Carbon Dioxide (22-30) mmol/L BUN (7-17) mg/dL Glucose (74-99) mg/dL POC Glucose (mg/dL) 173 H 164 H 154 H (70-110) mg/dL Calcium (8.4-10.2) mg/dL Crossmatch 04/04/23 04/04/23 04/04/23 Range/Units 04:04 04:12 04:12 WBC 15.1 H (3.8-10.6) k/uL RBC 2.23 L (3.80-5.40) m/uL Hgb 7.8 L (11.4-16.0) gm/dL Hct 22.5 L (34.0-46.0) % MCV 100.7 H (80.0-100.0) fL Neutrophils # (Manual) 13.80 H (1.3-7.7) k/uL Lymphocytes # (Manual) 0.45 L (1.0-4.8) k/uL Metamyelocytes # (Man) 0.45 H (0) k/uL ABG pH (7.35-7.45) ABG pO2 (83-108) mmHg ABG O2 Saturation (94-97) % Sodium 131 L (137-145) mmol/L Carbon Dioxide 20 L (22-30) mmol/L BUN 20 H (7-17) mg/dL Glucose 129 H (74-99) mg/dL POC Glucose (mg/dL) 150 H (70-110) mg/dL Calcium 7.3 L (8.4-10.2) mg/dL Crossmatch 04/04/23 04/04/23 04/04/23 Range/Units 05:41 05:47 06:09 WBC (3.8-10.6) k/uL RBC (3.80-5.40) m/uL Hgb (11.4-16.0) gm/dL Hct (34.0-46.0) % MCV (80.0-100.0) fL Neutrophils # (Manual) (1.3-7.7) k/uL Lymphocytes # (Manual) (1.0-4.8) k/uL Metamyelocytes # (Man) (0) k/uL ABG pH 7.31 L (7.35-7.45) ABG pO2 186 H (83-108) mmHg ABG O2 Saturation 99.1 H (94-97) % Sodium (137-145) mmol/L Carbon Dioxide (22-30) mmol/L BUN (7-17) mg/dL Glucose (74-99) mg/dL POC Glucose (mg/dL) 151 H 148 H (70-110) mg/dL Calcium (8.4-10.2) mg/dL Crossmatch 04/04/23 Range/Units 06:57 WBC (3.8-10.6) k/uL RBC (3.80-5.40) m/uL Hgb (11.4-16.0) gm/dL Hct (34.0-46.0) % MCV (80.0-100.0) fL Neutrophils # (Manual) (1.3-7.7) k/uL Lymphocytes # (Manual) (1.0-4.8) k/uL Metamyelocytes # (Man) (0) k/uL ABG pH (7.35-7.45) ABG pO2 (83-108) mmHg ABG O2 Saturation (94-97) % Sodium (137-145) mmol/L Carbon Dioxide (22-30) mmol/L BUN (7-17) mg/dL Glucose (74-99) mg/dL POC Glucose (mg/dL) 149 H (70-110) mg/dL Calcium (8.4-10.2) mg/dL Crossmatch Microbiology - Last 24 Hours (Table) 03/29/23 15:20 Blood Culture - Final Blood Assessment and Plan Assessment: Postop Day 6: Irrigation and Debridement with revision dural repair lumbar spine ; Postop Day 14: [id number] decompression and fusion 1. Aspiration Pneumonia 2. Post-op Ileus 3. Post-op anemia-resolved 4. L1-S1 spondylosis with stenosis 5. L1-S1 spondylolisthesis 6. Lower extremity radiculopathy 7. Low back pain 8. Lower extremity weakness Plan: -Appreciate information technology consultant and team management. -Activity: ROM exercises of extremities if medically tolerated, turn 2hrs, posit ion with pillows -Pain control: Adequate at this time -Meds: reviewed -GI ppx: protonix, continue with aggressive bowel regimen -DVT PPX: SCDs and TEDS -Hygiene: Maintain dressing clean and dry. Meticulous cleaning after BMs away from the incision site -Dispo: Clinically pending *I reviewed and discussed this case with my attending Dr. Duong, whom has reviewed this chart and films and is in agreement with assessment and plan of care as outlined above. I have personally seen and examined the patient, performed the documentation and the assessment and plan as written. Number of minutes spent on the visit: 20m.
--- NOTE | 2023-04-04 08:50 | P.PN ---
Subjective Progress Note Date: 04/04/23 Respiratory failure. Patient is a 72-year-old female with past medical history significant for chronic back pain and lumbar radiculopathy, diabetes mellitus type 2, hyperlipidemia, hypertension. Patient has been complaining of lumbar radiculopathy like symptoms earlier this year, and was evaluated by Dr. Duong. She was found to have multilevel spondylosis and spondylolisthesis. She underwent an elective T10 to pelvis decompression and fusion . The initial surgery was done on 03/21/2023. Subsequently, the patient continued to have CSF leak following a complex he 10 decompression fusion and the patient underwent a ureteral repair with a patch graft. This was done on 03/29/2023. On today's evaluation of 04/03/2023, the patient remains intubated on a mechanical ventilator. The patient has been intubated since 03/29/2023. She has an acute hypoxic respiratory failure/bilateral pneumonia/ARDS in addition to hypotension/sepsis. She remains on mechanical ventilator and the splinter assist-control mode rate of 32, tidal volume 400, FiO2 of 60% with a PEEP of 15. Peak airway pressure is 38. They static airway pressure is 34. The chest x- ray from today shows diffuse bilateral pulmonary infiltrates. The patient has a triple-lumen catheter in her right IJ. ET tube seems to be high in the trachea. No evidence of any pleural effusion and there is diffuse consolidation. There is hardware also involving the thoracolumbar spine. At the same time, the patient has a pH of 7.21 with a pCO2 of 43 and pO2 of 89. She is currently sedated and she is on propofol running at 50 mcg/kg/m and fentanyl running at 2 mcg/kg/h the patient is also on paralytics and she is on Nimbex at 3 mcg/kg/m. IV fluids running at KVO. Cardiac rhythm is sinus and the patient remains on amiodarone drip at 0.5 mg/m maintenance. The patient is fully sedated and paralyzed this point in time. IV fluids are at 20 mL an hour and the patient remains on pressors. She is on physiologic dose of vasopressin at 0.04 units an hour and the patient is also on norepinephrine running at 0.08 mcg/kg/m. She has an arterial line in the right brachial. She has a triple-lumen catheter in the right IJ. In terms of her blood work, the patient has a white cell count of 17 with a hemoglobin of 8.3 and a platelet count of 212. Sodium is at 134, potassium is at 4.2, bicarb is at 17, BUN is at 19 with a creatinine of 0.8. Her microbiology from the sputum indicated presence of Enterobacter and Klebsiella. The patient is currently covered with antibiotics and she is on IV cefepime. She is also on vancomycin. The most recent vancomycin trough from yesterday was 15. Urine output is in order of 50 mL an hour and overall fluid balance over the past 24 hours has been +700 mL. The patient has been ess entially in a positive fluid balance over the past several days. The patient is on enteral feeding for nutritional support and currently she is on hold as the patient is having higher residuals. Most recent CT angiogram of the chest that was done on 04/02/2023 showed multifocal groundglass pulmonary opacities and bibasilar consolidation consistent with pneumonia and there is also small pleural effusions and postsurgical changes involving the spine. CAT scan of the abdomen and pelvis was also done on 04/02/2023 and was consistent with ileus. No evidence of any perforation. No evidence of any mechanical obstruction as the patient did not have any focal transition point and contrast was de monstrated throughout the bowel extending to sigmoid colon. There is evidence of sigmoid diverticulosis without evidence of diverticulitis. There is diffuse anasarca. Echo of the heart was done on 03/29/2023 showed normal LV with an ejection fraction of 6065%, there is mild to moderate pulmonary hypertension with mild tricuspid regurgitation. 04/04/2023, the patient remains intubated on a mechanical ventilator. She is currently off paralytics and she is sedated with propofol which is running at a dose of 45 V per kilogram per minute and she is also on fentanyl running at 1.5 mcg/kg/h. The patient is quite seclusive mechanical ventilator. Chest x-ray still showing diffuse bilateral pulmonary infiltrates consistent with pneumonia/ARDS. Nevertheless, there is interval improvement in oxygenation. Today, the patient is on assist-control mode at the rate of 32, tidal volume of 400, FiO2 of 50% with a PEEP of 12. The blood gas that was done on this current setting shows a pH of 7.31 with a pCO2 42 and pO2 of 186. As such, there is improvement in the oxygenation. The peak airway pressure is currently at 30. The static airway pressure is currently at 24. The patient remains on pressors although at a lower dose. Vasopressin is physiologic at 0.04 units an minutes and the patient is also on norepinephrine at 0.01 g hospital kilogram per minutes. The patient remains on amiodarone drip throughout the night and currently her rhythm is sinus and amiodarone drip was discontinued this morning. Feeding was held yesterday because of increased residuals. She does have a com ponent of ileus. She remains on Reglan. NG tube output is 3 50 mL overnight the patient was also started on methyl naltrexone 12 mg for bowel motility. The rest of the blood work shows a white cell count of 15 with a hemoglobin of 7.8 and a platelet count of 183. The sodium is at 131, BUN is at 20 with a creatinine of 0.7. Serum bicarb is up to 20. IV fluids are as a former bicarb infusion rate of 75 mL an hour. She was started on insulin drip for blood sugar control as the patient's blood sugar was quite elevated while being on systemic steroids. She remains on IV Zosyn. No other significant events overnight. Overall fluid balance over the past 24 hours has been in the order of -143 mL and the patient is receiving Lasix at a dose of 20 mg every 12 hours. Objective - Vital Signs Vital signs: Vital Signs Temp 97.7 F 04/04/23 08:00 Pulse 58 L 04/04/23 08:03 Resp 32 H 04/04/23 08:00 BP 116/59 04/04/23 08:00 Pulse Ox 99 04/04/23 08:00 FiO2 50 04/04/23 08:00 Intake & Output 04/03/23 04/04/23 04/04/23 18:59 06:59 18:59 Intake Total 4581.478 4315.588 354.405 Output Total 1750 1855 75 Balance -156.011 12.588 279.405 Weight 105.1 kg 108.6 kg Intake: IV 323 216 36 0.9NS 10 0.9NS Pressure Bag 33 36 6 Lactated Ringers 1,000 ml 240 180 20 @ 20 mls/hr IV .Q24H [facility] Rx#:[id number] ceFAZolin 2 gm In Sodium 50 Chloride 0.9% 50 ml @ 100 mls/hr IVPB Q8H [facility] Rx#: [id number] Intake, IV Titration 5040.740 8901.588 318.405 Amount Amiodarone 450 mg In 250 Dextrose 5% in Water 250 ml @ 0.5 MG/MIN 16.667 mls/hr IV .Q15H [facility] Rx#: [id number] Cisatracurium 200 mg In 196.857 Sodium Chloride 0.9% 180 ml @ 2 MCG/KG/MIN 12.42 mls/hr IV .Q16H7M [facility] Rx# :[id number] Dextrose 5% in Water 1, 825 150 000 ml @ 75 mls/hr IV . [id number] [facility] with Sodium Bicarb (1 Meq/ml) 150 ml Rx#:[id number] Insulin Regular 100 unit 2.121 48.178 16.673 In Sodium Chloride 0.9% 100 ml @ Per Protocol IV .Q0M [facility] Rx#:[id number] Lactated Ringers 1,000 ml 60 @ 20 mls/hr IV .Q24H [facility] Rx#:[id number] Norepinephrine 32 mg In 32.384 31.001 Sodium Chloride 0.9% 218 ml @ 0.03 MCG/KG/MIN 1. 364 mls/hr IV .Q24H [facility] Rx#:[id number] Piperacillin-Tazobactam 3 100 .375 gm In Sodium Chloride 0.9% 100 ml @ 25 mls/hr IVPB Q8HR [facility] Rx# :[id number] Potassium Chloride 10 meq 100 In Water For Injection 1 100ml.bag @ 100 mls/hr IVPB Q1H [facility] Rx#: [id number] Vasopressin 60 unit In 153 Sodium Chloride 0.9% 150 ml @ 0.04 UNITS/MIN 6.12 mls/hr IV .Q24H [facility] Rx#: [id number] fentaNYL (PF). 1,000 mcg 284.662 209.899 72.192 In Sodium Chloride 0.9% 80 ml @ 0.5 MCG/KG/HR 5. 12 mls/hr IV .[id number] [facility] Rx#:[id number] propofoL 1,000 mg In 281.965 277.510 79.54 Empty Bag 1 bag @ 15 MCG/ KG/MIN 8.73 mls/hr IV . [id number] [facility] Rx#:[id number] Tube Feeding 40 Other 30 Output: Urine 750 1305 75 Oral Regurgitation 1000 550 Other: Voiding Method Indwelling Catheter Indwelling Catheter ABP, PAP, CO, CI - Last Documented Arterial Blood Pressure 133/46 - Exam No acute distress, sedated, intubated, on a mechanical ventilator and the patient is also sedated She senses the mechanical ventilator. Head exam was generally normal. There was no scleral icterus or corneal arcus. Mucous membranes were moist. HEENT examination is grossly unremarkable. The patient has a triple-lumen catheter in the right IJ Neck supple. Full range of motion. No adenopathy thyromegaly or neck vein distention. Cardiovascular examination reveals regular rhythm rate. S1-S2 normal. No S3 or S4. No discernible murmur noted. Lungs reveal scattered bilateral rhonchi. Breath sounds equal. Abdomen soft without bowel sounds. The bowel sounds are quite diminished and absent and the patient diffuse abdominal wall edema. No direct tenderness, no rebound tenderness, no guarding Extremities are intact. No cyanosis clubbing and there is diffuse anasarca and edema in all 4 extremities and the patient has a right brachial triple-lumen catheter. The patient is diminished pulses in all 4 extremities. Skin is without rash or lesion. The surgical wound is dry clean and intact Neurologic examination cannot be assessed at this time. - Labs CBC & Chem 7: 04/04/23 04:12 04/04/23 04:12 Labs: Abnormal Lab Results - Last 24 Hours (Table) 04/02/23 04/03/23 04/03/23 Range/Units 11:42 11:57 16:45 WBC (3.8-10.6) k/uL RBC (3.80-5.40) m/uL Hgb (11.4-16.0) gm/dL Hct (34.0-46.0) % MCV (80.0-100.0) fL Neutrophils # (Manual) (1.3-7.7) k/uL Lymphocytes # (Manual) (1.0-4.8) k/uL Metamyelocytes # (Man) (0) k/uL ABG pH (7.35-7.45) ABG pO2 (83-108) mmHg ABG O2 Saturation (94-97) % Sodium (137-145) mmol/L Carbon Dioxide (22-30) mmol/L BUN (7-17) mg/dL Glucose (74-99) mg/dL POC Glucose (mg/dL) 179 H 225 H (70-110) mg/dL Calcium (8.4-10.2) mg/dL Crossmatch See Detail 04/03/23 04/03/23 04/03/23 Range/Units 17:57 18:59 19:58 WBC (3.8-10.6) k/uL RBC (3.80-5.40) m/uL Hgb (11.4-16.0) gm/dL Hct (34.0-46.0) % MCV (80.0-100.0) fL Neutrophils # (Manual) (1.3-7.7) k/uL Lymphocytes # (Manual) (1.0-4.8) k/uL Metamyelocytes # (Man) (0) k/uL ABG pH (7.35-7.45) ABG pO2 (83-108) mmHg ABG O2 Saturation (94-97) % Sodium (137-145) mmol/L Carbon Dioxide (22-30) mmol/L BUN (7-17) mg/dL Glucose (74-99) mg/dL POC Glucose (mg/dL) 217 H 186 H 169 H (70-110) mg/dL Calcium (8.4-10.2) mg/dL Crossmatch 04/03/23 04/03/23 04/03/23 Range/Units 21:04 22:07 23:15 WBC (3.8-10.6) k/uL RBC (3.80-5.40) m/uL Hgb (11.4-16.0) gm/dL Hct (34.0-46.0) % MCV (80.0-100.0) fL Neutrophils # (Manual) (1.3-7.7) k/uL Lymphocytes # (Manual) (1.0-4.8) k/uL Metamyelocytes # (Man) (0) k/uL ABG pH (7.35-7.45) ABG pO2 (83-108) mmHg ABG O2 Saturation (94-97) % Sodium (137-145) mmol/L Carbon Dioxide (22-30) mmol/L BUN (7-17) mg/dL Glucose (74-99) mg/dL POC Glucose (mg/dL) 176 H 177 H 174 H (70-110) mg/dL Calcium (8.4-10.2) mg/dL Crossmatch 04/04/23 04/04/23 04/04/23 Range/Units 00:06 01:58 03:15 WBC (3.8-10.6) k/uL RBC (3.80-5.40) m/uL Hgb (11.4-16.0) gm/dL Hct (34.0-46.0) % MCV (80.0-100.0) fL Neutrophils # (Manual) (1.3-7.7) k/uL Lymphocytes # (Manual) (1.0-4.8) k/uL Metamyelocytes # (Man) (0) k/uL ABG pH (7.35-7.45) ABG pO2 (83-108) mmHg ABG O2 Saturation (94-97) % Sodium (137-145) mmol/L Carbon Dioxide (22-30) mmol/L BUN (7-17) mg/dL Glucose (74-99) mg/dL POC Glucose (mg/dL) 173 H 164 H 154 H (70-110) mg/dL Calcium (8.4-10.2) mg/dL Crossmatch 04/04/23 04/04/23 04/04/23 Range/Units 04:04 04:12 04:12 WBC 15.1 H (3.8-10.6) k/uL RBC 2.23 L (3.80-5.40) m/uL Hgb 7.8 L (11.4-16.0) gm/dL Hct 22.5 L (34.0-46.0) % MCV 100.7 H (80.0-100.0) fL Neutrophils # (Manual) 13.80 H (1.3-7.7) k/uL Lymphocytes # (Manual) 0.45 L (1.0-4.8) k/uL Metamyelocytes # (Man) 0.45 H (0) k/uL ABG pH (7.35-7.45) ABG pO2 (83-108) mmHg ABG O2 Saturation (94-97) % Sodium 131 L (137-145) mmol/L Carbon Dioxide 20 L (22-30) mmol/L BUN 20 H (7-17) mg/dL Glucose 129 H (74-99) mg/dL POC Glucose (mg/dL) 150 H (70-110) mg/dL Calcium 7.3 L (8.4-10.2) mg/dL Crossmatch 04/04/23 04/04/23 04/04/23 Range/Units 05:41 05:47 06:09 WBC (3.8-10.6) k/uL RBC (3.80-5.40) m/uL Hgb (11.4-16.0) gm/dL Hct (34.0-46.0) % MCV (80.0-100.0) fL Neutrophils # (Manual) (1.3-7.7) k/uL Lymphocytes # (Manual) (1.0-4.8) k/uL Metamyelocytes # (Man) (0) k/uL ABG pH 7.31 L (7.35-7.45) ABG pO2 186 H (83-108) mmHg ABG O2 Saturation 99.1 H (94-97) % Sodium (137-145) mmol/L Carbon Dioxide (22-30) mmol/L BUN (7-17) mg/dL Glucose (74-99) mg/dL POC Glucose (mg/dL) 151 H 148 H (70-110) mg/dL Calcium (8.4-10.2) mg/dL Crossmatch 04/04/23 04/04/23 Range/Units 06:57 07:58 WBC (3.8-10.6) k/uL RBC (3.80-5.40) m/uL Hgb (11.4-16.0) gm/dL Hct (34.0-46.0) % MCV (80.0-100.0) fL Neutrophils # (Manual) (1.3-7.7) k/uL Lymphocytes # (Manual) (1.0-4.8) k/uL Metamyelocytes # (Man) (0) k/uL ABG pH (7.35-7.45) ABG pO2 (83-108) mmHg ABG O2 Saturation (94-97) % Sodium (137-145) mmol/L Carbon Dioxide (22-30) mmol/L BUN (7-17) mg/dL Glucose (74-99) mg/dL POC Glucose (mg/dL) 149 H 152 H (70-110) mg/dL Calcium (8.4-10.2) mg/dL Crossmatch Microbiology - Last 24 Hours (Table) 03/29/23 15:20 Blood Culture - Final Blood Assessment and Plan Plan: Acute hypoxemic respiratory failure, requiring intubation and mechanical ventilation, subsequent to repair of a dural tear, secondary to a large-volume gastric aspiration. S/P intubation and mechanical ventilation, for respiratory failure, 03/29/2023. Presentation is typical of post aspiration pneumonia with secondary ARDS and the patient is currently sedated and paralyzed. The patient remains sedated on a mechanical ventilator. She is off paralytics for now. There is interval improvement in oxygenation as the patient is being treated with a combination of antibiotics and steroids. Acute respiratory distress syndrome. Aspiration pneumonia secondary to Enterobacter and Klebsiella Acute Atrial fibrillation with RVR. The current cardiac rhythm is sinus and the patient remains on amiodarone maintenance. Echo cardiac exam shows a preserved LV function without any significant valvular abnormalities Lumbar spondylosis and spondylolisthesis, the initial surgery was done on 03/21/2023 status post postop day #13, T10 to pelvic decompression and fusion. The patient was taken back to the operating room on 03/29/2023 for repair of a dural leak Severe hypotension, likely secondary to sepsis, currently on norepinephrine and vasopressin. The patient has been running at a lower dose of norepinephrine at 0.08 microvascular kilogram per minute and the patient is also on vasopressin physiologic dose Non-anion gap metabolic acidosis, currently on a bicarbonate infusion at the rate of 75 mL's an hour History of lumbar radiculopathy. Type 2 diabetes mellitus. The patient is on insulin drip Benign essential hypertension. History of hyperlipidemia. Steroid-induced hyperglycemia the patient is currently on insulin drip running at 4.5 units an hour Ileus, started on a combination of methyl naltrexone and Reglan Plan: Keep the patient sedated with accommodation of fentanyl and propofol Keep the patient off paralytics Continue the bicarb infusion Increase the Lasix to 40 mg every 12 hours Continue IV Solu-Medrol Continue insulin drip for blood sugar control Discontinue the amiodarone drip Continue IV Zosyn Repeat x-ray of the abdomen to check for any air-fluid levels May consider restarting tube feeds at the lower rate of 10 mL an hour and checking residuals periodically Discontinue the vasopressin drip Wean off norepinephrine Dropped FiO2 down to 40% and dropped to keep down to 10 Not ready for any further weaning at this point in time. Conditions other significant critical continue to follow make further recommendations based on her progress. Critical care evaluation that was done in more than 30 minutes. Time with Patient: Greater than 30
[2023-04-04] MEDS ORDERED: FUROSEMIDE 10 MG/ML 2 ML VIAL IV ONE (08:51)
[2023-04-04] MEDS ORDERED: NICOTINE 21MG/24HR PATCH TRANSDERM SCH (09:00)
--- NOTE | 2023-04-04 09:00 | XR ---
EXAMINATION TYPE: XR chest 1V portable DATE OF EXAM: 04/04/2023 Comparison: 04/03/2023 Clinical History: 73-year-old female Tube placement Findings: ET tube satisfactory. NG tube courses below the diaphragm. Right IJ CVC within the right atrium. Post erior midline skin trinh. Partially visualized lower thoracic posterior fusion hardware. Ongoing bi lateral patchy and confluent airspace opacities without significant change. Impression: Ongoing patchy and confluent bilateral airspace disease.
--- NOTE | 2023-04-04 09:46 | XR ---
EXAMINATION TYPE: XR abdomen 1V DATE OF EXAM: 04/04/2023 Comparison: 04/03/2023 Clinical History: 73-year-old female ileus Findings: Lower thoracic pelvic posterior fusion. Posterior midline skin trinh. NG tube is in place. Gas in c olon. Cecum is distended up to 8.1 cm wide versus 9.1 cm, previously. Other scattered colonic air is present. No dilated small bowel loops are seen. Supine imaging limited for assessment of free air. Impression: Persistent air distention of the colon. There has been slight improvement with the cecum now distende d up to 8.1 cm versus 9.1 cm, previously.
[2023-04-04 10:06] LABS: Glucose,Whole Blood 110 mg/dL (70-110)
[2023-04-04] MEDS: CISATRACURIUM 200 MG in SODIUM CHLORIDE 0.9% 180 ML IV SCH (10:34)
[2023-04-04] MEDS ORDERED: VANCOMYCIN TROUGH DUE 1 EACH MISC MISCELLANE ONE (11:00)
[2023-04-04 11:08] LABS: Glucose,Whole Blood 145 mg/dL (70-110)
[2023-04-04] MEDS ORDERED: HYDROmorphone 0.5 MG/0.5 ML SYRINGE IVP PRN (11:45)
[2023-04-04 12:00] LABS: Glucose,Whole Blood 140 mg/dL (70-110)
[2023-04-04] MEDS: INSULIN REGULAR 100 UNIT in SODIUM CHLORIDE 0.9% 100 ML IV SCH (12:29)
[2023-04-04] MEDS: AMIODARONE 200 MG TAB PO SCH ×2 (12:40→20:24)
[2023-04-04] MEDS: LACTATED RINGERS 1,000 ML IV SCH (12:47)
--- NOTE | 2023-04-04 13:45 | P.PN ---
Subjective Progress Note Date: 04/03/23 Principal diagnosis: Sepsis/pneumonia Patient is a 73-year-old female electively admitted to the hospital 03/21/2023 and this patient who is s/p extensive thoracolumbar spine surgery in this patient who is status post L2-L5 deformity correction did have a L2-S1 interbody fusion and T10-L2 posterior lateral instrumented fusion,patient did have postoperative CSF leak status post complex T10 posterior decompression fusion with dural repair postoperatively the patient did have a respiratory distress requiring intubation and admission to the ICU. On today's evaluation that is 04/03/2023, patient remains to be afebrile today, patient FiO2 is stable at 60 % today, no significant purulent secretions through the ET diarrhea or any other changes reported by the nursing staff, Patient did have CT angiogram of the chest that was negative for PE did shows multifocal groundglass opacities, CT abdomen and pelvis was consistent with ileus and no evidence of perforation Patient did have white count is up to 17,000 today and the patient did have a creatinine of 0.88, blood cultures are negative so far sputum grew Klebsiella and Enterobacter Objective - Vital Signs Vital signs: Vital Signs Temp 98.2 F 04/03/23 12:00 Pulse 74 04/03/23 12:00 Resp 32 H 04/03/23 12:00 BP 95/53 04/03/23 12:00 Pulse Ox 96 04/03/23 12:00 FiO2 60 04/03/23 12:00 Intake & Output 04/02/23 04/03/23 04/03/23 18:59 06:59 18:59 Intake Total 1944.820 8488.309 753.275 Output Total 9743 224 4699 Balance 419.652 283.309 -261.725 Weight 105.1 kg 105.1 kg Intake: IV 760 320 135 0.9NS Pressure Bag 15 Cefepime 2 gm In Sodium 100 100 Chloride 0.9% 100 ml @ 25 mls/hr IVPB Q12H [facility] Rx# :[id number] Lactated Ringers 1,000 ml 160 220 120 @ 20 mls/hr IV .Q24H [facility] Rx#:[id number] Vancomycin 1,500 mg In 500 Sodium Chloride 0.9% 500 ml 500 ml @ 167 mls/hr IVPB Q24H [facility] Rx#: [id number] Intake, IV Titration 734.652 668.309 548.275 Amount Amiodarone 450 mg In 250 Dextrose 5% in Water 250 ml @ 0.5 MG/MIN 16.667 mls/hr IV .Q15H [facility] Rx#: [id number] Cisatracurium 200 mg In 0 177.088 Sodium Chloride 0.9% 180 ml @ 2 MCG/KG/MIN 12.42 mls/hr IV .Q16H7M [facility] Rx# :[id number] Norepinephrine 32 mg In 42.342 47.266 16.31 Sodium Chloride 0.9% 218 ml @ 0.03 MCG/KG/MIN 1. 364 mls/hr IV .Q24H [facility] Rx#:[id number] Vasopressin 60 unit In 142.086 Sodium Chloride 0.9% 150 ml @ 0.04 UNITS/MIN 6.12 mls/hr IV .Q24H [facility] Rx#: [id number] fentaNYL (PF). 1,000 mcg 264.864 161.110 100 In Sodium Chloride 0.9% 80 ml @ 0.5 MCG/KG/HR 5. 12 mls/hr IV .[id number] [facility] Rx#:[id number] propofoL 1,000 mg In 285.36 282.845 181.965 Empty Bag 1 bag @ 15 MCG/ KG/MIN 8.73 mls/hr IV . [id number] [facility] Rx#:[id number] Tube Feeding 200 20 40 Other 60 30 Output: Urine 1335 725 315 Oral Regurgitation 700 Other: Voiding Method Indwelling Catheter Indwelling Catheter ABP, PAP, CO, CI - Last Documented Arterial Blood Pressure 139/54 - Exam GENERAL DESCRIPTION: An elderly female intubated on the vent RESPIRATORY SYSTEM: Unlabored breathing , decreased breath sounds at bases HEART: S1 S2 regular rate and rhythm , ABDOMEN: Soft , no tenderness EXTREMITIES: Bilateral lower extremity swelling no redness - Labs CBC & Chem 7: 04/04/23 04:12 04/04/23 11:05 Labs: Abnormal Lab Results - Last 24 Hours (Table) 04/02/23 04/02/23 04/03/23 Range/Units 11:42 17:45 00:28 WBC (3.8-10.6) k/uL RBC (3.80-5.40) m/uL Hgb (11.4-16.0) gm/dL Hct (34.0-46.0) % MCV (80.0-100.0) fL Neutrophils # (Manual) (1.3-7.7) k/uL Eosinophils # (Manual) (0-0.7) k/uL Metamyelocytes # (Man) (0) k/uL Myelocytes # (Manual) (0) k/uL ABG pH (7.35-7.45) ABG HCO3 (21-25) mmol/L Sodium (137-145) mmol/L Carbon Dioxide (22-30) mmol/L BUN (7-17) mg/dL Glucose (74-99) mg/dL POC Glucose (mg/dL) 211 H 180 H (70-110) mg/dL Calcium (8.4-10.2) mg/dL Crossmatch See Detail 04/03/23 04/03/23 04/03/23 Range/Units 04:32 04:32 05:52 WBC 17.0 H (3.8-10.6) k/uL RBC 2.42 L (3.80-5.40) m/uL Hgb 8.3 L (11.4-16.0) gm/dL Hct 24.8 L (34.0-46.0) % MCV 102.8 H (80.0-100.0) fL Neutrophils # (Manual) 12.90 H (1.3-7.7) k/uL Eosinophils # (Manual) 1.70 H (0-0.7) k/uL Metamyelocytes # (Man) 0.17 H (0) k/uL Myelocytes # (Manual) 0.68 H (0) k/uL ABG pH 7.21 L (7.35-7.45) ABG HCO3 18 L (21-25) mmol/L Sodium 134 L (137-145) mmol/L Carbon Dioxide 17 L (22-30) mmol/L BUN 19 H (7-17) mg/dL Glucose 149 H (74-99) mg/dL POC Glucose (mg/dL) (70-110) mg/dL Calcium 7.6 L (8.4-10.2) mg/dL Crossmatch 04/03/23 04/03/23 Range/Units 05:54 11:57 WBC (3.8-10.6) k/uL RBC (3.80-5.40) m/uL Hgb (11.4-16.0) gm/dL Hct (34.0-46.0) % MCV (80.0-100.0) fL Neutrophils # (Manual) (1.3-7.7) k/uL Eosinophils # (Manual) (0-0.7) k/uL Metamyelocytes # (Man) (0) k/uL Myelocytes # (Manual) (0) k/uL ABG pH (7.35-7.45) ABG HCO3 (21-25) mmol/L Sodium (137-145) mmol/L Carbon Dioxide (22-30) mmol/L BUN (7-17) mg/dL Glucose (74-99) mg/dL POC Glucose (mg/dL) 171 H 179 H (70-110) mg/dL Calcium (8.4-10.2) mg/dL Crossmatch Assessment and Plan (1) Sepsis Current Visit: Yes Status: Acute Code(s): A41.9 - SEPSIS, UNSPECIFIED ORGANISM SNOMED Code(s): 40134420 (2) Gram-negative pneumonia Current Visit: Yes Status: Acute Code(s): J15.6 - PNEUMONIA DUE TO OTHER GRAM-NEGATIVE BACTERIA SNOMED Code(s): 472225534 (3) Leukocytosis Current Visit: Yes Status: Acute Code(s): D72.829 - ELEVATED WHITE BLOOD CELL COUNT, UNSPECIFIED SNOMED Code(s): 998493434 Plan: 1patient with a sepsis/septic shock in this patient with fever elevated white count hypertension tachycardia is source likely aspiration pneumonia likely gram-negative with a sputum currently growing Klebsiella and Enterobacter with some resistant pattern, patient did have a CSF leak and did have extensive T10- S1 spine surgery underlying meningitis less likely but not entirely excluded 2-patient fever pattern has improved and the patient white count is mildly elevated and we'll monitor closely 3-With the clinical picture mostly of ileus as well as pneumonia possible aspiration we will discontinue vancomycin and cefepime started the patient on Zosyn Dictation was produced using [employer] dictation software. please excuse any grammatical, word or spelling errors. Time with Patient: Less than 30
--- NOTE | 2023-04-04 13:47 | P.PN ---
Subjective Progress Note Date: 04/04/23 Principal diagnosis: Sepsis/pneumonia Patient is a 73-year-old female electively admitted to the hospital 03/21/2023 and this patient who is s/p extensive thoracolumbar spine surgery in this patient who is status post L2-L5 deformity correction did have a L2-S1 interbody fusion and T10-L2 posterior lateral instrumented fusion,patient did have postoperative CSF leak status post complex T10 posterior decompression fusion with dural repair postoperatively the patient did have a respiratory distress requiring intubation and admission to the ICU. On today's evaluation that is 04/04/2023, patient continues to be afebrile, patient FiO2 is down to 40% today, no significant purulent secretions through the ET diarrhea or any other changes reported by the nursing staff, Patient did have CT angiogram of the chest that was negative for PE did shows multifocal groundglass opacities, CT abdomen and pelvis was consistent with ileus and no evidence of perforation Patient did have white count is down to 15,000 today and the patient did have a creatinine of 0.76, blood cultures are negative so far sputum grew Klebsiella and Enterobacter Objective - Vital Signs Vital signs: Vital Signs Temp 97.7 F 04/04/23 13:00 Pulse 60 04/04/23 13:00 Resp 32 H 04/04/23 13:00 BP 111/52 04/04/23 11:30 Pulse Ox 97 04/04/23 13:00 FiO2 40 04/04/23 13:00 Intake & Output 04/03/23 04/04/23 04/04/23 18:59 06:59 18:59 Intake Total 5049.397 4822.588 1119.712 Output Total 1750 1855 1625 Balance -156.011 12.588 -505.288 Weight 105.1 kg 108.6 kg Intake: IV 323 216 61 0.9NS 20 0.9NS Pressure Bag 33 36 21 Lactated Ringers 1,000 ml 240 180 20 @ 20 mls/hr IV .Q24H [facility] Rx#:[id number] ceFAZolin 2 gm In Sodium 50 Chloride 0.9% 50 ml @ 100 mls/hr IVPB Q8H [facility] Rx#: [id number] Intake, IV Titration 2566.911 3019.588 1058.712 Amount Amiodarone 450 mg In 250 Dextrose 5% in Water 250 ml @ 0.5 MG/MIN 16.667 mls/hr IV .Q15H [facility] Rx#: [id number] Cisatracurium 200 mg In 196.857 Sodium Chloride 0.9% 180 ml @ 2 MCG/KG/MIN 12.42 mls/hr IV .Q16H7M [facility] Rx# :[id number] Dextrose 5% in Water 1, 825 525 000 ml @ 75 mls/hr IV . [id number] [facility] with Sodium Bicarb (1 Meq/ml) 150 ml Rx#:[id number] Insulin Regular 100 unit 2.121 48.178 33.010 In Sodium Chloride 0.9% 100 ml @ Per Protocol IV .Q0M [facility] Rx#:[id number] Lactated Ringers 1,000 ml 60 @ 20 mls/hr IV .Q24H [facility] Rx#:[id number] Norepinephrine 32 mg In 32.384 31.001 9.802 Sodium Chloride 0.9% 218 ml @ 0.03 MCG/KG/MIN 1. 364 mls/hr IV .Q24H [facility] Rx#:[id number] Piperacillin-Tazobactam 3 100 100 .375 gm In Sodium Chloride 0.9% 100 ml @ 25 mls/hr IVPB Q8HR [facility] Rx# :[id number] Potassium Chloride 10 meq 100 In Water For Injection 1 100ml.bag @ 100 mls/hr IVPB Q1H [facility] Rx#: [id number] Potassium Chloride 10 meq 100 In Water For Injection 1 100ml.bag @ 100 mls/hr IVPB Q1H [facility] Rx#: [id number] Vasopressin 60 unit In 153 Sodium Chloride 0.9% 150 ml @ 0.04 UNITS/MIN 6.12 mls/hr IV .Q24H [facility] Rx#: [id number] fentaNYL (PF). 1,000 mcg 284.662 209.899 111.360 In Sodium Chloride 0.9% 80 ml @ 0.5 MCG/KG/HR 5. 12 mls/hr IV .[id number] [facility] Rx#:[id number] propofoL 1,000 mg In 281.965 277.510 179.540 Empty Bag 1 bag @ 15 MCG/ KG/MIN 8.73 mls/hr IV . [id number] [facility] Rx#:[id number] Tube Feeding 40 Other 30 Output: Urine 750 1305 1625 Oral Regurgitation 1000 550 Other: Voiding Method Indwelling Catheter Indwelling Catheter ABP, PAP, CO, CI - Last Documented Arterial Blood Pressure 136/47 - Exam GENERAL DESCRIPTION: An elderly female intubated on the vent RESPIRATORY SYSTEM: Unlabored breathing , decreased breath sounds at bases HEART: S1 S2 regular rate and rhythm , ABDOMEN: Soft , no tenderness EXTREMITIES: Bilateral lower extremity swelling no redness - Labs CBC & Chem 7: 04/04/23 04:12 04/04/23 11:05 Labs: Abnormal Lab Results - Last 24 Hours (Table) 04/02/23 04/03/23 04/03/23 Range/Units 11:42 16:45 17:57 WBC (3.8-10.6) k/uL RBC (3.80-5.40) m/uL Hgb (11.4-16.0) gm/dL Hct (34.0-46.0) % MCV (80.0-100.0) fL Neutrophils # (Manual) (1.3-7.7) k/uL Lymphocytes # (Manual) (1.0-4.8) k/uL Metamyelocytes # (Man) (0) k/uL ABG pH (7.35-7.45) ABG pO2 (83-108) mmHg ABG O2 Saturation (94-97) % Sodium (137-145) mmol/L Carbon Dioxide (22-30) mmol/L BUN (7-17) mg/dL Glucose (74-99) mg/dL POC Glucose (mg/dL) 225 H 217 H (70-110) mg/dL Calcium (8.4-10.2) mg/dL Crossmatch See Detail 04/03/23 04/03/23 04/03/23 Range/Units 18:59 19:58 21:04 WBC (3.8-10.6) k/uL RBC (3.80-5.40) m/uL Hgb (11.4-16.0) gm/dL Hct (34.0-46.0) % MCV (80.0-100.0) fL Neutrophils # (Manual) (1.3-7.7) k/uL Lymphocytes # (Manual) (1.0-4.8) k/uL Metamyelocytes # (Man) (0) k/uL ABG pH (7.35-7.45) ABG pO2 (83-108) mmHg ABG O2 Saturation (94-97) % Sodium (137-145) mmol/L Carbon Dioxide (22-30) mmol/L BUN (7-17) mg/dL Glucose (74-99) mg/dL POC Glucose (mg/dL) 186 H 169 H 176 H (70-110) mg/dL Calcium (8.4-10.2) mg/dL Crossmatch 04/03/23 04/03/23 04/04/23 Range/Units 22:07 23:15 00:06 WBC (3.8-10.6) k/uL RBC (3.80-5.40) m/uL Hgb (11.4-16.0) gm/dL Hct (34.0-46.0) % MCV (80.0-100.0) fL Neutrophils # (Manual) (1.3-7.7) k/uL Lymphocytes # (Manual) (1.0-4.8) k/uL Metamyelocytes # (Man) (0) k/uL ABG pH (7.35-7.45) ABG pO2 (83-108) mmHg ABG O2 Saturation (94-97) % Sodium (137-145) mmol/L Carbon Dioxide (22-30) mmol/L BUN (7-17) mg/dL Glucose (74-99) mg/dL POC Glucose (mg/dL) 177 H 174 H 173 H (70-110) mg/dL Calcium (8.4-10.2) mg/dL Crossmatch 04/04/23 04/04/23 04/04/23 Range/Units 01:58 03:15 04:04 WBC (3.8-10.6) k/uL RBC (3.80-5.40) m/uL Hgb (11.4-16.0) gm/dL Hct (34.0-46.0) % MCV (80.0-100.0) fL Neutrophils # (Manual) (1.3-7.7) k/uL Lymphocytes # (Manual) (1.0-4.8) k/uL Metamyelocytes # (Man) (0) k/uL ABG pH (7.35-7.45) ABG pO2 (83-108) mmHg ABG O2 Saturation (94-97) % Sodium (137-145) mmol/L Carbon Dioxide (22-30) mmol/L BUN (7-17) mg/dL Glucose (74-99) mg/dL POC Glucose (mg/dL) 164 H 154 H 150 H (70-110) mg/dL Calcium (8.4-10.2) mg/dL Crossmatch 04/04/23 04/04/23 04/04/23 Range/Units 04:12 04:12 05:41 WBC 15.1 H (3.8-10.6) k/uL RBC 2.23 L (3.80-5.40) m/uL Hgb 7.8 L (11.4-16.0) gm/dL Hct 22.5 L (34.0-46.0) % MCV 100.7 H (80.0-100.0) fL Neutrophils # (Manual) 13.80 H (1.3-7.7) k/uL Lymphocytes # (Manual) 0.45 L (1.0-4.8) k/uL Metamyelocytes # (Man) 0.45 H (0) k/uL ABG pH (7.35-7.45) ABG pO2 (83-108) mmHg ABG O2 Saturation (94-97) % Sodium 131 L (137-145) mmol/L Carbon Dioxide 20 L (22-30) mmol/L BUN 20 H (7-17) mg/dL Glucose 129 H (74-99) mg/dL POC Glucose (mg/dL) 151 H (70-110) mg/dL Calcium 7.3 L (8.4-10.2) mg/dL Crossmatch 04/04/23 04/04/23 04/04/23 Range/Units 05:47 06:09 06:57 WBC (3.8-10.6) k/uL RBC (3.80-5.40) m/uL Hgb (11.4-16.0) gm/dL Hct (34.0-46.0) % MCV (80.0-100.0) fL Neutrophils # (Manual) (1.3-7.7) k/uL Lymphocytes # (Manual) (1.0-4.8) k/uL Metamyelocytes # (Man) (0) k/uL ABG pH 7.31 L (7.35-7.45) ABG pO2 186 H (83-108) mmHg ABG O2 Saturation 99.1 H (94-97) % Sodium (137-145) mmol/L Carbon Dioxide (22-30) mmol/L BUN (7-17) mg/dL Glucose (74-99) mg/dL POC Glucose (mg/dL) 148 H 149 H (70-110) mg/dL Calcium (8.4-10.2) mg/dL Crossmatch 04/04/23 04/04/23 04/04/23 Range/Units 07:58 11:06 11:59 WBC (3.8-10.6) k/uL RBC (3.80-5.40) m/uL Hgb (11.4-16.0) gm/dL Hct (34.0-46.0) % MCV (80.0-100.0) fL Neutrophils # (Manual) (1.3-7.7) k/uL Lymphocytes # (Manual) (1.0-4.8) k/uL Metamyelocytes # (Man) (0) k/uL ABG pH (7.35-7.45) ABG pO2 (83-108) mmHg ABG O2 Saturation (94-97) % Sodium (137-145) mmol/L Carbon Dioxide (22-30) mmol/L BUN (7-17) mg/dL Glucose (74-99) mg/dL POC Glucose (mg/dL) 152 H 145 H 140 H (70-110) mg/dL Calcium (8.4-10.2) mg/dL Crossmatch Microbiology - Last 24 Hours (Table) 03/29/23 15:20 Blood Culture - Final Blood Assessment and Plan (1) Sepsis Current Visit: Yes Status: Acute Code(s): A41.9 - SEPSIS, UNSPECIFIED ORGANISM SNOMED Code(s): 65520978 (2) Gram-negative pneumonia Current Visit: Yes Status: Acute Code(s): J15.6 - PNEUMONIA DUE TO OTHER GRAM-NEGATIVE BACTERIA SNOMED Code(s): 516021022 (3) Leukocytosis Current Visit: Yes Status: Acute Code(s): D72.829 - ELEVATED WHITE BLOOD CELL COUNT, UNSPECIFIED SNOMED Code(s): 996527279 Plan: 1patient with a sepsis/septic shock in this patient with fever elevated white count hypertension tachycardia is source likely aspiration pneumonia likely gram-negative with a sputum currently growing Klebsiella and Enterobacter with some resistant pattern, patient did have a CSF leak and did have extensive T10- S1 spine surgery underlying meningitis less likely but not entirely excluded 2-patient fever pattern has improved and the patient white count is trending down 3-With the clinical picture mostly of ileus as well as pneumonia possible aspiration patient to continue with Zosyn and monitor clinical course closely Dictation was produced using [employer] dictation software. please excuse any grammatical, word or spelling errors. Time with Patient: Less than 30
[2023-04-04] MEDS ORDERED: MINERAL OIL 133 ML ENEMA RECTAL ONE (14:00)
--- NOTE | 2023-04-04 14:22 | P.PN ---
Subjective Progress Note Date: 04/04/23 CHIEF COMPLAINT: Back pain HISTORY OF PRESENT ILLNESS: Patient remains in the ICU and on mechanical venti lation. Patient's tube feeds remain off. Patient had had 1000 and output through OG tube yesterday and 500 output today. She is now having flatus. No bowel movements. She is receiving the duplex suppositories. They have been able to come down on the Levophed. Afebrile. WBC is down from 17-15. Abdominal x-ray persistent air distention of the colon. There has been slight improvement with the cecum now distending up to 8.1 cm versus 9.1 cm previously. PHYSICAL EXAM: VITAL SIGNS: Reviewed. GENERAL: Well-developed in no acute distress. ABDOMEN: Soft. Distended. Tympanic NEUROLOGIC: Sedated and on mechanical ventilation ASSESSMENT: 1. Postop ileus 2. Status post T10 to pelvis decompression with fusion with drainage from surgical site status post irrigation and debridement 3. Possible aspiration pneumonia PLAN: -Continue to hold tube feeds -Continue OG tube for decompression -Continue Reglan 10 mg IV every 6 hours -Continue Dulcolax suppository daily -Continue ICU management and supportive care Physician Grinder Hand note has been reviewed by physician. Signing provider agrees with the documented findings, assessment, and plan of care. Objective - Vital Signs Vital signs: Vital Signs Temp 97.7 F 04/04/23 13:00 Pulse 60 04/04/23 13:00 Resp 32 H 04/04/23 13:00 BP 111/52 04/04/23 11:30 Pulse Ox 97 04/04/23 13:00 FiO2 40 04/04/23 13:00 Intake & Output 04/03/23 04/04/23 04/04/23 18:59 06:59 18:59 Intake Total 8308.903 3539.588 1119.712 Output Total 1750 1855 1625 Balance -156.011 12.588 -505.288 Weight 105.1 kg 108.6 kg Intake: IV 323 216 61 0.9NS 20 0.9NS Pressure Bag 33 36 21 Lactated Ringers 1,000 ml 240 180 20 @ 20 mls/hr IV .Q24H [facility] Rx#:[id number] ceFAZolin 2 gm In Sodium 50 Chloride 0.9% 50 ml @ 100 mls/hr IVPB Q8H [facility] Rx#: [id number] Intake, IV Titration 4130.566 0434.588 1058.712 Amount Amiodarone 450 mg In 250 Dextrose 5% in Water 250 ml @ 0.5 MG/MIN 16.667 mls/hr IV .Q15H [facility] Rx#: [id number] Cisatracurium 200 mg In 196.857 Sodium Chloride 0.9% 180 ml @ 2 MCG/KG/MIN 12.42 mls/hr IV .Q16H7M [facility] Rx# :[id number] Dextrose 5% in Water 1, 825 525 000 ml @ 75 mls/hr IV . [id number] [facility] with Sodium Bicarb (1 Meq/ml) 150 ml Rx#:[id number] Insulin Regular 100 unit 2.121 48.178 33.010 In Sodium Chloride 0.9% 100 ml @ Per Protocol IV .Q0M [facility] Rx#:[id number] Lactated Ringers 1,000 ml 60 @ 20 mls/hr IV .Q24H [facility] Rx#:[id number] Norepinephrine 32 mg In 32.384 31.001 9.802 Sodium Chloride 0.9% 218 ml @ 0.03 MCG/KG/MIN 1. 364 mls/hr IV .Q24H [facility] Rx#:[id number] Piperacillin-Tazobactam 3 100 100 .375 gm In Sodium Chloride 0.9% 100 ml @ 25 mls/hr IVPB Q8HR [facility] Rx# :[id number] Potassium Chloride 10 meq 100 In Water For Injection 1 100ml.bag @ 100 mls/hr IVPB Q1H [facility] Rx#: [id number] Potassium Chloride 10 meq 100 In Water For Injection 1 100ml.bag @ 100 mls/hr IVPB Q1H [facility] Rx#: [id number] Vasopressin 60 unit In 153 Sodium Chloride 0.9% 150 ml @ 0.04 UNITS/MIN 6.12 mls/hr IV .Q24H [facility] Rx#: [id number] fentaNYL (PF). 1,000 mcg 284.662 209.899 111.360 In Sodium Chloride 0.9% 80 ml @ 0.5 MCG/KG/HR 5. 12 mls/hr IV .[id number] [facility] Rx#:[id number] propofoL 1,000 mg In 281.965 277.510 179.540 Empty Bag 1 bag @ 15 MCG/ KG/MIN 8.73 mls/hr IV . [id number] [facility] Rx#:[id number] Tube Feeding 40 Other 30 Output: Urine 750 1305 1625 Oral Regurgitation 1000 550 Other: Voiding Method Indwelling Catheter Indwelling Catheter ABP, PAP, CO, CI - Last Documented Arterial Blood Pressure 136/47 - Labs CBC & Chem 7: 04/04/23 04:12 04/04/23 11:05 Labs: Abnormal Lab Results - Last 24 Hours (Table) 04/02/23 04/03/23 04/03/23 Range/Units 11:42 16:45 17:57 WBC (3.8-10.6) k/uL RBC (3.80-5.40) m/uL Hgb (11.4-16.0) gm/dL Hct (34.0-46.0) % MCV (80.0-100.0) fL Neutrophils # (Manual) (1.3-7.7) k/uL Lymphocytes # (Manual) (1.0-4.8) k/uL Metamyelocytes # (Man) (0) k/uL ABG pH (7.35-7.45) ABG pO2 (83-108) mmHg ABG O2 Saturation (94-97) % Sodium (137-145) mmol/L Carbon Dioxide (22-30) mmol/L BUN (7-17) mg/dL Glucose (74-99) mg/dL POC Glucose (mg/dL) 225 H 217 H (70-110) mg/dL Calcium (8.4-10.2) mg/dL Crossmatch See Detail 04/03/23 04/03/23 04/03/23 Range/Units 18:59 19:58 21:04 WBC (3.8-10.6) k/uL RBC (3.80-5.40) m/uL Hgb (11.4-16.0) gm/dL Hct (34.0-46.0) % MCV (80.0-100.0) fL Neutrophils # (Manual) (1.3-7.7) k/uL Lymphocytes # (Manual) (1.0-4.8) k/uL Metamyelocytes # (Man) (0) k/uL ABG pH (7.35-7.45) ABG pO2 (83-108) mmHg ABG O2 Saturation (94-97) % Sodium (137-145) mmol/L Carbon Dioxide (22-30) mmol/L BUN (7-17) mg/dL Glucose (74-99) mg/dL POC Glucose (mg/dL) 186 H 169 H 176 H (70-110) mg/dL Calcium (8.4-10.2) mg/dL Crossmatch 04/03/23 04/03/23 04/04/23 Range/Units 22:07 23:15 00:06 WBC (3.8-10.6) k/uL RBC (3.80-5.40) m/uL Hgb (11.4-16.0) gm/dL Hct (34.0-46.0) % MCV (80.0-100.0) fL Neutrophils # (Manual) (1.3-7.7) k/uL Lymphocytes # (Manual) (1.0-4.8) k/uL Metamyelocytes # (Man) (0) k/uL ABG pH (7.35-7.45) ABG pO2 (83-108) mmHg ABG O2 Saturation (94-97) % Sodium (137-145) mmol/L Carbon Dioxide (22-30) mmol/L BUN (7-17) mg/dL Glucose (74-99) mg/dL POC Glucose (mg/dL) 177 H 174 H 173 H (70-110) mg/dL Calcium (8.4-10.2) mg/dL Crossmatch 04/04/23 04/04/23 04/04/23 Range/Units 01:58 03:15 04:04 WBC (3.8-10.6) k/uL RBC (3.80-5.40) m/uL Hgb (11.4-16.0) gm/dL Hct (34.0-46.0) % MCV (80.0-100.0) fL Neutrophils # (Manual) (1.3-7.7) k/uL Lymphocytes # (Manual) (1.0-4.8) k/uL Metamyelocytes # (Man) (0) k/uL ABG pH (7.35-7.45) ABG pO2 (83-108) mmHg ABG O2 Saturation (94-97) % Sodium (137-145) mmol/L Carbon Dioxide (22-30) mmol/L BUN (7-17) mg/dL Glucose (74-99) mg/dL POC Glucose (mg/dL) 164 H 154 H 150 H (70-110) mg/dL Calcium (8.4-10.2) mg/dL Crossmatch 04/04/23 04/04/23 04/04/23 Range/Units 04:12 04:12 05:41 WBC 15.1 H (3.8-10.6) k/uL RBC 2.23 L (3.80-5.40) m/uL Hgb 7.8 L (11.4-16.0) gm/dL Hct 22.5 L (34.0-46.0) % MCV 100.7 H (80.0-100.0) fL Neutrophils # (Manual) 13.80 H (1.3-7.7) k/uL Lymphocytes # (Manual) 0.45 L (1.0-4.8) k/uL Metamyelocytes # (Man) 0.45 H (0) k/uL ABG pH (7.35-7.45) ABG pO2 (83-108) mmHg ABG O2 Saturation (94-97) % Sodium 131 L (137-145) mmol/L Carbon Dioxide 20 L (22-30) mmol/L BUN 20 H (7-17) mg/dL Glucose 129 H (74-99) mg/dL POC Glucose (mg/dL) 151 H (70-110) mg/dL Calcium 7.3 L (8.4-10.2) mg/dL Crossmatch 04/04/23 04/04/23 04/04/23 Range/Units 05:47 06:09 06:57 WBC (3.8-10.6) k/uL RBC (3.80-5.40) m/uL Hgb (11.4-16.0) gm/dL Hct (34.0-46.0) % MCV (80.0-100.0) fL Neutrophils # (Manual) (1.3-7.7) k/uL Lymphocytes # (Manual) (1.0-4.8) k/uL Metamyelocytes # (Man) (0) k/uL ABG pH 7.31 L (7.35-7.45) ABG pO2 186 H (83-108) mmHg ABG O2 Saturation 99.1 H (94-97) % Sodium (137-145) mmol/L Carbon Dioxide (22-30) mmol/L BUN (7-17) mg/dL Glucose (74-99) mg/dL POC Glucose (mg/dL) 148 H 149 H (70-110) mg/dL Calcium (8.4-10.2) mg/dL Crossmatch 04/04/23 04/04/23 04/04/23 Range/Units 07:58 11:06 11:59 WBC (3.8-10.6) k/uL RBC (3.80-5.40) m/uL Hgb (11.4-16.0) gm/dL Hct (34.0-46.0) % MCV (80.0-100.0) fL Neutrophils # (Manual) (1.3-7.7) k/uL Lymphocytes # (Manual) (1.0-4.8) k/uL Metamyelocytes # (Man) (0) k/uL ABG pH (7.35-7.45) ABG pO2 (83-108) mmHg ABG O2 Saturation (94-97) % Sodium (137-145) mmol/L Carbon Dioxide (22-30) mmol/L BUN (7-17) mg/dL Glucose (74-99) mg/dL POC Glucose (mg/dL) 152 H 145 H 140 H (70-110) mg/dL Calcium (8.4-10.2) mg/dL Crossmatch Microbiology - Last 24 Hours (Table) 03/29/23 15:20 Blood Culture - Final Blood
[2023-04-04 14:23] LABS: Glucose,Whole Blood 135 mg/dL (70-110)
[2023-04-04 16:04] LABS: Glucose,Whole Blood 116 mg/dL (70-110)
--- NOTE | 2023-04-04 16:45 | P.PN ---
Subjective Progress Note Date: 04/04/23 (delayed charting seen at 1145) Patient is a 72-year-old female with dyslipidemia, hypertension, [id number] diabetes mellitus type 2 who presented for elective T10 to pelvis decompression and fusion. We were consulted for medical management. She underwent successful decompression and fusion on 03/21, however, her postoperative hospital course was complicated by positional headache suspicious for CSF leak. Subsequently, she was taken back to the operating room on 03/29 for CSF repair. During intubation, patient was noted to have significant amounts of the aspirate emesis and oropharynx and after intubation she was noted to have 1.2 L of gastric output from OG tube. During the procedure she had increasing FiO2 requirements. Postoperatively she became hypotensive down to the 70s/30s and hypoxia down to the mid 60s despite FiO2 of 100% and PEEP of 12. She was transferred to the ICU and started on the Levophed. Differential diagnosis of septic shock secondary to meningitis versus aspiration pneumonia as well as hypovolemic shock secondary to CSF volume loss were considered. She was administered 3L of lactated Ringer's. Chest x-ray postoperatively on 03/29 d emonstrated diffuse pulmonary edema with concern for ARDS superimposed on aspiration. Empiric antibiotics were started with vancomycin, ceftriaxone, Unasynfor empiric coverage of both meningitis and aspiration pneumonia/ Infectious disease was consulted. Sputum culture was positive for Klebsiella and Enterobacter with variable resistance. Pro-calcitonin was elevated at 6.7. Her CVP was monitored and remained stable between 13 and 15. Echocardiogram showed EF 60-65%, mild TR, and moderate pulmonary hypertension. Patient was noted to not have a bowel movement in approximately 5 days as of 03/29 and Gen. surgery was consulted for ileus. She developed sepsis induced atrial fibrillation with RVR, was started on amiodarone drip and converted back to normal sinus rhythm. She is placed on metoprolol once her pressor requirements started to decrease on 04/01, however, this was held after pressor requirements increased again on 04/03. Discussed with orthopedic surgery that no anticoagulation will be given for atrial fibrillation during the critical phase, but can be initiated once patient is able to be transitioned to the floor. She did require nimbex which was sucessfully stopped on 04/03/23, she was given relistor on 04/03/23. Patient seen and examined at bedside. She remains intubated and sedated. They have been able to go down on her levothyroxine requirements today. She has not yet had a bowel movement. He has been weaning her sentinel and work on weaning propofol for sedation holiday. Vital signs reviewed General: nontoxic, no distress, appears at stated age Cardiovascular: S1S2 reg, no murmur, positive posterior tibial pulse bilateral, Lungs: Coarse breath sounds bilateral, no rhonchi, no rales , no accessory muscle use Abdominal: soft, nontender to palpation, no guarding, no appreciable organomegaly Ext: no gross muscle atrophy, diffuse anasarca, no contractures Neuro: Pupils equal and round, sluggishly reactive to light Psych: sedated on vent Assessment/Plan: Multi-focal pneumonia,due to Klebsiella nad Enterobacter complicated by spetic shock Ventilator Dependent Acute Hypoxemic and Hypercarbic Respiratory Failure, ARDS Postoperative ileus -Continue levophed down to 0.03 mcg/kg/min, vasopressin at 0.04 units/min - Zosyn D # 2, discussed this with infectious disease today - Off vanco -continue propofol attmept to wean -ordered methyl-naltrexone administeded 04/03 -Continue with Lasix 10 mg daily rectal, Reglan 10 mg every 6 hours scheduled IV, MiraLAX 17 mg by mouth daily, Senokot 1 by mouth twice daily -Surgery reviewed: Continue to hold 2 units, OG for decompression -ID note reviewed: Continue with Zosyn -Pulmonary note reviewed: Continue off of paralytics, decrease fentanyl and propofol, continue with bicarbonate infusion, increase Lasix to 40 every 12 hours, continue IV Solu-Medrol Sepsis induced atrial fibrillation with RVR, paroxysmal -Again off of amiodarone drip. Start amiodarone 200 mg oral twice daily as patient has required amiodarone IV infusion on 2 different occasions. -Metoprolol was discontinued by pulmonary -Patient will require anticoagulation when she is no longer critical Non-anion gap metabolic acidosis -Continue with D5W with 3 A of bicarbonate at 75 mL/h 72-year-old female status post T10 to pelvis decompression with fusion s/p CSF repair on 03/29 - Orthospine note reviewed. Monitoring drainage, abdominal binder, and fioricet. Acute blood loss anemia -Anticipated outcome of surgery -Follow CBC - HgB stable, conitnue to follow - check iron studies, consider IV iron if Tsat is low. Diabetes mellitus type 2 -Hold metformin -Currently on insulin drip -Follow blood sugars Dyslipidemia -Gemfibrozil Hypertension -Currently on levo and vasopressin all antihypertensives were held Imaging: Chest x-ray as reviewed by myself from 04/04/23 demonstrates diffuse interstitial infiltrate left greater than right Data Review: Vitals reviewed T-max 98 5 Pulse 59, respirations 32, blood pressure 134/46, O2 sat 96% on FiO2 of 40% DVT prophylaxis: Heparin SC Anticipated discharge date: Pending Clinical Course Anticipated discharge place: Pending Clinical Course This dictation was prepared using [facility] voice recognition software. Though every attempt is made to correct errors during dictation some may still exist. Objective - Vital Signs Vital signs: Vital Signs Temp 98.5 F 04/04/23 16:00 Pulse 70 04/04/23 16:00 Resp 32 H 04/04/23 16:00 BP 117/48 04/04/23 16:00 Pulse Ox 100 04/04/23 16:00 FiO2 40 04/04/23 16:00 Intake & Output 04/03/23 04/04/23 04/04/23 18:59 06:59 18:59 Intake Total 0883.117 5875.588 1347.098 Output Total 1750 1855 1845 Balance -156.011 12.588 -497.902 Weight 105.1 kg 108.6 kg Intake: IV 323 216 100 0.9NS 50 0.9NS Pressure Bag 33 36 30 Lactated Ringers 1,000 ml 240 180 20 @ 20 mls/hr IV .Q24H [facility] Rx#:[id number] ceFAZolin 2 gm In Sodium 50 Chloride 0.9% 50 ml @ 100 mls/hr IVPB Q8H [facility] Rx#: [id number] Intake, IV Titration 0868.376 4509.588 1247.098 Amount Amiodarone 450 mg In 250 Dextrose 5% in Water 250 ml @ 0.5 MG/MIN 16.667 mls/hr IV .Q15H [facility] Rx#: [id number] Cisatracurium 200 mg In 196.857 Sodium Chloride 0.9% 180 ml @ 2 MCG/KG/MIN 12.42 mls/hr IV .Q16H7M [facility] Rx# :[id number] Dextrose 5% in Water 1, 825 600 000 ml @ 75 mls/hr IV . [id number] [facility] with Sodium Bicarb (1 Meq/ml) 150 ml Rx#:[id number] Insulin Regular 100 unit 2.121 48.178 45.736 In Sodium Chloride 0.9% 100 ml @ Per Protocol IV .Q0M [facility] Rx#:[id number] Lactated Ringers 1,000 ml 60 @ 20 mls/hr IV .Q24H [facility] Rx#:[id number] Norepinephrine 32 mg In 32.384 31.001 10.462 Sodium Chloride 0.9% 218 ml @ 0.03 MCG/KG/MIN 1. 364 mls/hr IV .Q24H [facility] Rx#:[id number] Piperacillin-Tazobactam 3 100 100 .375 gm In Sodium Chloride 0.9% 100 ml @ 25 mls/hr IVPB Q8HR [facility] Rx# :[id number] Potassium Chloride 10 meq 100 In Water For Injection 1 100ml.bag @ 100 mls/hr IVPB Q1H [facility] Rx#: [id number] Potassium Chloride 10 meq 200 In Water For Injection 1 100ml.bag @ 100 mls/hr IVPB Q1H [facility] Rx#: [id number] Vasopressin 60 unit In 153 Sodium Chloride 0.9% 150 ml @ 0.04 UNITS/MIN 6.12 mls/hr IV .Q24H [facility] Rx#: [id number] fentaNYL (PF). 1,000 mcg 284.662 209.899 111.360 In Sodium Chloride 0.9% 80 ml @ 0.5 MCG/KG/HR 5. 12 mls/hr IV .[id number] [facility] Rx#:[id number] propofoL 1,000 mg In 281.965 277.510 179.540 Empty Bag 1 bag @ 15 MCG/ KG/MIN 8.73 mls/hr IV . [id number] [facility] Rx#:[id number] Tube Feeding 40 Other 30 Output: Urine 750 1305 1845 Oral Regurgitation 1000 550 Other: Voiding Method Indwelling Catheter Indwelling Catheter Indwelling Catheter ABP, PAP, CO, CI - Last Documented Arterial Blood Pressure 126/42 - Labs CBC & Chem 7: 04/04/23 04:12 04/04/23 11:05 Labs: Abnormal Lab Results - Last 24 Hours (Table) 04/02/23 04/03/23 04/03/23 Range/Units 11:42 16:45 17:57 WBC (3.8-10.6) k/uL RBC (3.80-5.40) m/uL Hgb (11.4-16.0) gm/dL Hct (34.0-46.0) % MCV (80.0-100.0) fL Neutrophils # (Manual) (1.3-7.7) k/uL Lymphocytes # (Manual) (1.0-4.8) k/uL Metamyelocytes # (Man) (0) k/uL ABG pH (7.35-7.45) ABG pO2 (83-108) mmHg ABG O2 Saturation (94-97) % Sodium (137-145) mmol/L Carbon Dioxide (22-30) mmol/L BUN (7-17) mg/dL Glucose (74-99) mg/dL POC Glucose (mg/dL) 225 H 217 H (70-110) mg/dL Calcium (8.4-10.2) mg/dL Crossmatch See Detail 04/03/23 04/03/23 04/03/23 Range/Units 18:59 19:58 21:04 WBC (3.8-10.6) k/uL RBC (3.80-5.40) m/uL Hgb (11.4-16.0) gm/dL Hct (34.0-46.0) % MCV (80.0-100.0) fL Neutrophils # (Manual) (1.3-7.7) k/uL Lymphocytes # (Manual) (1.0-4.8) k/uL Metamyelocytes # (Man) (0) k/uL ABG pH (7.35-7.45) ABG pO2 (83-108) mmHg ABG O2 Saturation (94-97) % Sodium (137-145) mmol/L Carbon Dioxide (22-30) mmol/L BUN (7-17) mg/dL Glucose (74-99) mg/dL POC Glucose (mg/dL) 186 H 169 H 176 H (70-110) mg/dL Calcium (8.4-10.2) mg/dL Crossmatch 07/31/23 07/31/23 08/01/23 Range/Units 22:07 23:15 00:06 WBC (3.8-10.6) k/uL RBC (3.80-5.40) m/uL Hgb (11.4-16.0) gm/dL Hct (34.0-46.0) % MCV (80.0-100.0) fL Neutrophils # (Manual) (1.3-7.7) k/uL Lymphocytes # (Manual) (1.0-4.8) k/uL Metamyelocytes # (Man) (0) k/uL ABG pH (7.35-7.45) ABG pO2 (83-108) mmHg ABG O2 Saturation (94-97) % Sodium (137-145) mmol/L Carbon Dioxide (22-30) mmol/L BUN (7-17) mg/dL Glucose (74-99) mg/dL POC Glucose (mg/dL) 177 H 174 H 173 H (70-110) mg/dL Calcium (8.4-10.2) mg/dL Crossmatch 04/04/23 04/04/23 04/04/23 Range/Units 01:58 03:15 04:04 WBC (3.8-10.6) k/uL RBC (3.80-5.40) m/uL Hgb (11.4-16.0) gm/dL Hct (34.0-46.0) % MCV (80.0-100.0) fL Neutrophils # (Manual) (1.3-7.7) k/uL Lymphocytes # (Manual) (1.0-4.8) k/uL Metamyelocytes # (Man) (0) k/uL ABG pH (7.35-7.45) ABG pO2 (83-108) mmHg ABG O2 Saturation (94-97) % Sodium (137-145) mmol/L Carbon Dioxide (22-30) mmol/L BUN (7-17) mg/dL Glucose (74-99) mg/dL POC Glucose (mg/dL) 164 H 154 H 150 H (70-110) mg/dL Calcium (8.4-10.2) mg/dL Crossmatch 04/04/23 04/04/23 04/04/23 Range/Units 04:12 04:12 05:41 WBC 15.1 H (3.8-10.6) k/uL RBC 2.23 L (3.80-5.40) m/uL Hgb 7.8 L (11.4-16.0) gm/dL Hct 22.5 L (34.0-46.0) % MCV 100.7 H (80.0-100.0) fL Neutrophils # (Manual) 13.80 H (1.3-7.7) k/uL Lymphocytes # (Manual) 0.45 L (1.0-4.8) k/uL Metamyelocytes # (Man) 0.45 H (0) k/uL ABG pH (7.35-7.45) ABG pO2 (83-108) mmHg ABG O2 Saturation (94-97) % Sodium 131 L (137-145) mmol/L Carbon Dioxide 20 L (22-30) mmol/L BUN 20 H (7-17) mg/dL Glucose 129 H (74-99) mg/dL POC Glucose (mg/dL) 151 H (70-110) mg/dL Calcium 7.3 L (8.4-10.2) mg/dL Crossmatch 04/04/23 04/04/23 04/04/23 Range/Units 05:47 06:09 06:57 WBC (3.8-10.6) k/uL RBC (3.80-5.40) m/uL Hgb (11.4-16.0) gm/dL Hct (34.0-46.0) % MCV (80.0-100.0) fL Neutrophils # (Manual) (1.3-7.7) k/uL Lymphocytes # (Manual) (1.0-4.8) k/uL Metamyelocytes # (Man) (0) k/uL ABG pH 7.31 L (7.35-7.45) ABG pO2 186 H (83-108) mmHg ABG O2 Saturation 99.1 H (94-97) % Sodium (137-145) mmol/L Carbon Dioxide (22-30) mmol/L BUN (7-17) mg/dL Glucose (74-99) mg/dL POC Glucose (mg/dL) 148 H 149 H (70-110) mg/dL Calcium (8.4-10.2) mg/dL Crossmatch 08/09/2604/04/23 04/04/23 Range/Units 07:58 11:06 11:59 WBC (3.8-10.6) k/uL RBC (3.80-5.40) m/uL Hgb (11.4-16.0) gm/dL Hct (34.0-46.0) % MCV (80.0-100.0) fL Neutrophils # (Manual) (1.3-7.7) k/uL Lymphocytes # (Manual) (1.0-4.8) k/uL Metamyelocytes # (Man) (0) k/uL ABG pH (7.35-7.45) ABG pO2 (83-108) mmHg ABG O2 Saturation (94-97) % Sodium (137-145) mmol/L Carbon Dioxide (22-30) mmol/L BUN (7-17) mg/dL Glucose (74-99) mg/dL POC Glucose (mg/dL) 152 H 145 H 140 H (70-110) mg/dL Calcium (8.4-10.2) mg/dL Crossmatch 04/04/23 04/04/23 Range/Units 14:22 16:03 WBC (3.8-10.6) k/uL RBC (3.80-5.40) m/uL Hgb (11.4-16.0) gm/dL Hct (34.0-46.0) % MCV (80.0-100.0) fL Neutrophils # (Manual) (1.3-7.7) k/uL Lymphocytes # (Manual) (1.0-4.8) k/uL Metamyelocytes # (Man) (0) k/uL ABG pH (7.35-7.45) ABG pO2 (83-108) mmHg ABG O2 Saturation (94-97) % Sodium (137-145) mmol/L Carbon Dioxide (22-30) mmol/L BUN (7-17) mg/dL Glucose (74-99) mg/dL POC Glucose (mg/dL) 135 H 116 H (70-110) mg/dL Calcium (8.4-10.2) mg/dL Crossmatch Microbiology - Last 24 Hours (Table) 03/29/23 15:20 Blood Culture - Final Blood
[2023-04-04 17:59] LABS: Glucose,Whole Blood 129 mg/dL (70-110)
[2023-04-04] MEDS: VASOPRESSIN 60 UNIT in SODIUM CHLORIDE 0.9% 150 ML IV SCH (18:22)
[2023-04-04 18:51] LABS: Glucose,Whole Blood 147 mg/dL (70-110)
[2023-04-04 19:50] LABS: Glucose,Whole Blood 130 mg/dL (70-110)
[2023-04-04 19:50] LABS: Glucose,Whole Blood 32 mg/dL (70-110)
[2023-04-04] MEDS: FUROSEMIDE 10 MG/ML 4 ML VIAL IV SCH (20:23)
[2023-04-04 21:45] LABS: Glucose,Whole Blood 131 mg/dL (70-110)
[2023-04-04] MEDS: NOREPINEPHRINE 32 MG in SODIUM CHLORIDE 0.9% 218 ML IV SCH (22:30)
[2023-04-04 23:33] LABS: Glucose,Whole Blood 135 mg/dL (70-110)
[2023-04-05] MEDS: POTASSIUM CHLORIDE 10 MEQ in WATER FOR INJECTION 1 100ML.BAG IVPB SCH ×5 (00:06→10:34)
[2023-04-05 00:17] LABS: Glucose,Whole Blood 126 mg/dL (70-110)
[2023-04-05 01:48] LABS: Glucose,Whole Blood 133 mg/dL (70-110)
[2023-04-05] MEDS: CISATRACURIUM 200 MG in SODIUM CHLORIDE 0.9% 180 ML IV SCH (01:50)
[2023-04-05] MEDS: HEPARIN SODIUM,PORCINE/PF 5,000 UNIT/0.5 ML SYRINGE SQ SCH ×3 (01:52→16:28)
[2023-04-05 03:53] LABS: Glucose,Whole Blood 147 mg/dL (70-110)
[2023-04-05] MEDS: IPRATROPIUM-ALBUTEROL 3 ML NEB INHALATION SCH ×6 (03:55→22:56)
[2023-04-05 04:27] LABS: African American GFR (CKD) 76 (>60 ml/min/1.73 sqM); Anion Gap 7 mmol/L; Blood Urea Nitrogen 23 mg/dL (7-17); Calcium 7.2 mg/dL (8.4-10.2); Carbon Dioxide 24 mmol/L (22-30); Chloride 99 mmol/L (98-107); Creatine Kinase 237 U/L (30-135); Glucose 140 mg/dL (74-99); Non-African American GFR(CKD) 66 (>60 ml/min/1.73 sqM); Potassium 3.5 mmol/L (3.5-5.1); Sodium 130 mmol/L (137-145)
[2023-04-05 04:38] LABS: Glucose,Whole Blood 156 mg/dL (70-110)
[2023-04-05 05:04] LABS: HCT 20.2 % (34.0-46.0); Hypochromasia Slight; MCH 33.5 pg (25.0-35.0); MCHC 33.9 g/dL (31.0-37.0); MCV 98.9 fL (80.0-100.0); Platelet Count 226 k/uL (150-450); Poikilocytosis Slight; RBC 2.05 m/uL (3.80-5.40); RDW 14.9 % (11.5-15.5); WBC 17.2 k/uL (3.8-10.6)
[2023-04-05] MEDS ORDERED: POTASSIUM CHLORIDE 20 MEQ in WATER FOR INJECTION 1 100ML.BAG IVPB SCH (05:15)
[2023-04-05 05:16] LABS: HGB 6.9 gm/dL (11.4-16.0)
[2023-04-05 05:19] LABS: Glucose,Whole Blood 162 mg/dL (70-110)
[2023-04-05 05:34] LABS: ABG Base Excess 1.4 mmol/L; ABG HCO3 25 mmol/L (21-25); ABG Oxygen Saturation 98.6 % (94-97); ABG PCO2 36 mmHg (35-45); ABG PH 7.46 (7.35-7.45); ABG PO2 115 mmHg (83-108); ABG TCO2 26 mmol/L (19-24); Allen Test Performed? Yes
[2023-04-05 06:04] LABS: Glucose,Whole Blood 173 mg/dL (70-110)
[2023-04-05 06:05] LABS: Band Neutrophils % 5 %; Metamyelocytes # (M) 0.34 k/uL (0); Metamyelocytes % 2 %; Monocytes # (M) 0.52 k/uL (0-1.0); Neutrophils % (M) 84 %; Nucleated Red Blood Cells 0 /100 WBC (0-0); Total Cells Counted 200
[2023-04-05 06:08] LABS: Anisocytosis (M) Present; Polychromasia Present
--- NOTE | 2023-04-05 07:01 | XR ---
EXAMINATION TYPE: XR chest 1V portable DATE OF EXAM: 04/05/2023 6:55 AM COMPARISON: Chest radiographs from TECHNIQUE: XR chest 1V portable . CLINICAL INDICATION:Female, 73 years old with history of assess lungs; FINDINGS: Lungs/Pleura: Similar bilateral patchy included airspace opacities without significant change. No pne umothorax or pleural effusion. Pulmonary vascularity: Unremarkable. Heart/mediastinum: Cardiomediastinal silhouette is unremarkable. Musculoskeletal: No acute osseous pathology. Lower thoracic fusion changes are demonstrated. Other findings: Posterior midline skin trinh redemonstrated. Lines/Tubes: Endotracheal tube, NG tube, and right IJ central venous catheter are in stable positions. IMPRESSION: 1. Similar patchy and confluent bilateral airspace opacities. 2. Stable support lines and tubes.
[2023-04-05 07:14] LABS: Glucose,Whole Blood 155 mg/dL (70-110)
[2023-04-05] MEDS: METOCLOPRAMIDE 5 MG/ML 2 ML VIAL IVP SCH ×3 (07:46→18:45)
[2023-04-05] MEDS: PIPERACILLIN-TAZOBACTAM 3.375 GM in SODIUM CHLORIDE 0.9% 100 ML IVPB SCH ×2 (07:55→16:28)
[2023-04-05] MEDS: PANTOPRAZOLE 40 MG/10 ML VIAL IV SCH (07:58)
[2023-04-05] MEDS: CHLORHEXIDINE GLUCONATE 15 ML CUP MUCOUS MEM SCH ×2 (07:59→20:43)
[2023-04-05] MEDS: GABAPENTIN 100 MG CAP PO SCH ×3 (08:07→22:29)
[2023-04-05] MEDS: ARTIFICIAL TEARS-HYPROMELLOSE DROPS 15 ML BTL BOTH EYES SCH ×4 (08:07→22:30)
[2023-04-05] MEDS: bisacodyL 10 MG SUPP RECTAL SCH (08:07)
[2023-04-05] MEDS: AMIODARONE 200 MG TAB PO SCH ×2 (08:07→22:30)
[2023-04-05] MEDS: methylPREDNISolone SOD SUCCI 40 MG/ML 1 ML VIAL IV SCH ×2 (08:08→20:43)
[2023-04-05] MEDS: polyethylene glycoL 3350 17 GM POWD.PACK PO SCH (08:09)
[2023-04-05] MEDS: SENNOSIDES-DOCUSATE SODIUM 1 EACH TAB PO SCH ×2 (08:09→20:43)
[2023-04-05 09:09] LABS: % Iron Saturation 26.24 (12.00-45.00); Iron 53 UG/DL (50-170); Total Iron Binding Capacity 202 UG/DL (228-460)
[2023-04-05 09:16] LABS: Glucose,Whole Blood 141 mg/dL (70-110)
--- NOTE | 2023-04-05 09:16 | P.PN ---
Subjective Progress Note Date: 04/05/23 Respiratory failure. Patient is a 72-year-old female with past medical history significant for chronic back pain and lumbar radiculopathy, diabetes mellitus type 2, hyperlipidemia, hypertension. Patient has been complaining of lumbar radiculopathy like symptoms earlier this year, and was evaluated by Dr. Duong. She was found to have multilevel spondylosis and spondylolisthesis. She underwent an elective T10 to pelvis decompression and fusion . The initial surgery was done on 03/21/2023. Subsequently, the patient continued to have CSF leak following a complex he 10 decompression fusion and the patient underwent a ureteral repair with a patch graft. This was done on 03/29/2023. On today's evaluation of 04/03/2023, the patient remains intubated on a mechanical ventilator. The patient has been intubated since 03/29/2023. She has an acute hypoxic respiratory failure/bilateral pneumonia/ARDS in addition to hypotension/sepsis. She remains on mechanical ventilator and the splinter assist-control mode rate of 32, tidal volume 400, FiO2 of 60% with a PEEP of 15. Peak airway pressure is 38. They static airway pressure is 34. The chest x- ray from today shows diffuse bilateral pulmonary infiltrates. The patient has a triple-lumen catheter in her right IJ. ET tube seems to be high in the trachea. No evidence of any pleural effusion and there is diffuse consolidation. There is hardware also involving the thoracolumbar spine. At the same time, the patient has a pH of 7.21 with a pCO2 of 43 and pO2 of 89. She is currently sedated and she is on propofol running at 50 mcg/kg/m and fentanyl running at 2 mcg/kg/h the patient is also on paralytics and she is on Nimbex at 3 mcg/kg/m. IV fluids running at KVO. Cardiac rhythm is sinus and the patient remains on amiodarone drip at 0.5 mg/m maintenance. The patient is fully sedated and paralyzed this point in time. IV fluids are at 20 mL an hour and the patient remains on pressors. She is on physiologic dose of vasopressin at 0.04 units an hour and the patient is also on norepinephrine running at 0.08 mcg/kg/m. She has an arterial line in the right brachial. She has a triple-lumen catheter in the right IJ. In terms of her blood work, the patient has a white cell count of 17 with a hemoglobin of 8.3 and a platelet count of 212. Sodium is at 134, potassium is at 4.2, bicarb is at 17, BUN is at 19 with a creatinine of 0.8. Her microbiology from the sputum indicated presence of Enterobacter and Klebsiella. The patient is currently covered with antibiotics and she is on IV cefepime. She is also on vancomycin. The most recent vancomycin trough from yesterday was 15. Urine output is in order of 50 mL an hour and overall fluid balance over the past 24 hours has been +700 mL. The patient has been ess entially in a positive fluid balance over the past several days. The patient is on enteral feeding for nutritional support and currently she is on hold as the patient is having higher residuals. Most recent CT angiogram of the chest that was done on 04/02/2023 showed multifocal groundglass pulmonary opacities and bibasilar consolidation consistent with pneumonia and there is also small pleural effusions and postsurgical changes involving the spine. CAT scan of the abdomen and pelvis was also done on 04/02/2023 and was consistent with ileus. No evidence of any perforation. No evidence of any mechanical obstruction as the patient did not have any focal transition point and contrast was de monstrated throughout the bowel extending to sigmoid colon. There is evidence of sigmoid diverticulosis without evidence of diverticulitis. There is diffuse anasarca. Echo of the heart was done on 03/29/2023 showed normal LV with an ejection fraction of 6065%, there is mild to moderate pulmonary hypertension with mild tricuspid regurgitation. 04/04/2023, the patient remains intubated on a mechanical ventilator. She is currently off paralytics and she is sedated with propofol which is running at a dose of 45 V per kilogram per minute and she is also on fentanyl running at 1.5 mcg/kg/h. The patient is quite seclusive mechanical ventilator. Chest x-ray still showing diffuse bilateral pulmonary infiltrates consistent with pneumonia/ARDS. Nevertheless, there is interval improvement in oxygenation. Today, the patient is on assist-control mode at the rate of 32, tidal volume of 400, FiO2 of 50% with a PEEP of 12. The blood gas that was done on this current setting shows a pH of 7.31 with a pCO2 42 and pO2 of 186. As such, there is improvement in the oxygenation. The peak airway pressure is currently at 30. The static airway pressure is currently at 24. The patient remains on pressors although at a lower dose. Vasopressin is physiologic at 0.04 units an minutes and the patient is also on norepinephrine at 0.01 g hospital kilogram per minutes. The patient remains on amiodarone drip throughout the night and currently her rhythm is sinus and amiodarone drip was discontinued this morning. Feeding was held yesterday because of increased residuals. She does have a com ponent of ileus. She remains on Reglan. NG tube output is 3 50 mL overnight the patient was also started on methyl naltrexone 12 mg for bowel motility. The rest of the blood work shows a white cell count of 15 with a hemoglobin of 7.8 and a platelet count of 183. The sodium is at 131, BUN is at 20 with a creatinine of 0.7. Serum bicarb is up to 20. IV fluids are as a former bicarb infusion rate of 75 mL an hour. She was started on insulin drip for blood sugar control as the patient's blood sugar was quite elevated while being on systemic steroids. She remains on IV Zosyn. No other significant events overnight. Overall fluid balance over the past 24 hours has been in the order of -143 mL and the patient is receiving Lasix at a dose of 20 mg every 12 hours. 04/05/2023, the patient is being seen for a follow-up. She remains intubated on a mechanical ventilator. She is off paralytics and she is on a combination of propofol and fentanyl. Propofol is running at 45 maximum hospital kilogram per minute and fentanyl is running at 1 mcg/kg/h. The patient is on assist-control mode of mechanical ventilation at the rate of 32, tidal volume of 400, FiO2 of 40% with a PEEP of 10. Blood gas from today shows a pH of 7.46 with a pCO2 of 36 and pO2 of 115 and there is progressive improvement in the patient's oxygenation. The chest x-ray from today shows diffuse bilateral pulmonary infiltrates and bilateral pleural effusions slightly worse on the left. Orotracheal tube is in a good location. No evidence of any pneumothorax. No other major abnormalities. The patient is a triple-lumen catheter in her right internal jugular vein. Hemodynamically, the patient is off pressors. This was discontinued yesterday. The patient is currently on IV Lasix. She is producing good urine output and she is still and a positive fluid balance over the past 24 hours. She is currently on Lasix at a dose of 40 mg IV every 12 hours. She is also on a bicarb infusion as the patient is a component of melena negative metabolic acidosis. Serum bicarb is improved and the serum bicarbs up to 24 and a bicarb infusion will be discontinued today. Renal function is stable. The patient had a drop in hemoglobin down to 6.9 at today's evaluation. The white cell count at 17.2. Platelet counts are 226. Overall serum iron is at 53. The patient remains on bronchodilators, systemic steroids and IV Solu-Medrol 40 mg every 12 hours. She is on insulin drip which is running at 5 units an hour and the patient is covered with IV Zosyn regarding kilogram negative pneumonia. Another active issue is her ongoing difficulties with ileus and absent bowel movement activity. The patient has persistent air distention of the colon based on the most recent 5, the abdomen was as yesterday and there is slight improvement compared to the earlier films with the cecum now distended up to 8.1 cm compared to 9.1 cm. The angina output is in order of 500 mL overnight and the patient remains nothing by mouth for now. Objective - Vital Signs Vital signs: Vital Signs Temp 98.1 F 04/05/23 08:00 Pulse 68 04/05/23 08:30 Resp 32 H 04/05/23 08:30 BP 135/57 04/05/23 07:43 Pulse Ox 99 04/05/23 08:30 FiO2 40 04/05/23 08:00 Intake & Output 04/04/23 04/05/23 04/05/23 18:59 06:59 18:59 Intake Total 2001.762 2031.784 398 Output Total 2345 1430 530 Balance -342.238 601.784 -132 Weight 108.5 kg Intake: IV 139 143 13 0.9NS 80 110 10 0.9NS Pressure Bag 39 33 3 Lactated Ringers 1,000 ml 20 @ 20 mls/hr IV .Q24H [facility] Rx#:[id number] Intake, IV Titration 1725.653 8596.784 75 Amount Dextrose 5% in Water 1, 975 825 75 000 ml @ 75 mls/hr IV . [id number] [facility] with Sodium Bicarb (1 Meq/ml) 150 ml Rx#:[id number] Insulin Regular 100 unit 53.168 35.536 In Sodium Chloride 0.9% 100 ml @ Per Protocol IV .Q0M [facility] Rx#:[id number] Norepinephrine 32 mg In 10.462 Sodium Chloride 0.9% 218 ml @ 0.03 MCG/KG/MIN 1. 364 mls/hr IV .Q24H [facility] Rx#:[id number] Piperacillin-Tazobactam 3 100 .375 gm In Sodium Chloride 0.9% 100 ml @ 25 mls/hr IVPB Q8HR [facility] Rx# :[id number] Potassium Chloride 10 meq 200 In Water For Injection 1 100ml.bag @ 100 mls/hr IVPB Q1H [facility] Rx#: [id number] Potassium Chloride 10 meq 500 In Water For Injection 1 100ml.bag @ 100 mls/hr IVPB Q1H [facility] Rx#: [id number] Potassium Chloride 20 meq 100 In Water For Injection 1 100ml.bag @ 50 mls/hr IVPB Q2H [facility] Rx#: [id number] Vasopressin 60 unit In 134.232 36.363 Sodium Chloride 0.9% 150 ml @ 0.04 UNITS/MIN 6.12 mls/hr IV .Q24H [facility] Rx#: [id number] fentaNYL (PF). 1,000 mcg 111.360 97.280 In Sodium Chloride 0.9% 80 ml @ 0.5 MCG/KG/HR 5. 12 mls/hr IV .[id number] [facility] Rx#:[id number] propofoL 1,000 mg In 279.540 269.605 Empty Bag 1 bag @ 15 MCG/ KG/MIN 8.73 mls/hr IV . [id number] [facility] Rx#:[id number] Blood Product 0 310 Rc As-1 Unit 0 310 [id number] Other 25 Output: Gastric Drainage 400 500 Urine 1945 1430 30 Other: Voiding Method Indwelling Catheter Indwelling Catheter ABP, PAP, CO, CI - Last Documented Arterial Blood Pressure 138/56 - Exam No acute distress, sedated, intubated, on a mechanical ventilator and the patient is also sedated She senses the mechanical ventilator. The patient has an orotracheal and orogastric tube both in place. The patient a triple lumen catheter in the right IJ. Head exam was generally normal. There was no scleral icterus or corneal arcus. Mucous membranes were moist. HEENT examination is grossly unremarkable. The patient has a triple-lumen catheter in the right IJ Neck supple. Full range of motion. No adenopathy thyromegaly or neck vein distention. Cardiovascular examination reveals regular rhythm rate. S1-S2 normal. No S3 or S4. No discernible murmur noted. Lungs reveal scattered bilateral rhonchi. Breath sounds equal. Abdomen soft without bowel sounds. The bowel sounds are quite diminished and absent and the patient diffuse abdominal wall edema. No direct tenderness, no rebound tenderness, no guarding Extremities are intact. No cyanosis clubbing and there is diffuse anasarca and edema in all 4 extremities and the patient has a right brachial triple-lumen catheter. The patient is diminished pulses in all 4 extremities. Skin is without rash or lesion. The surgical wound is dry clean and intact Neurologic examination cannot be assessed at this time. - Labs CBC & Chem 7: 04/05/23 04:00 04/05/23 04:00 Labs: Abnormal Lab Results - Last 24 Hours (Table) 04/02/23 04/04/23 04/04/23 Range/Units 11:42 11:06 11:59 WBC (3.8-10.6) k/uL RBC (3.80-5.40) m/uL Hgb (11.4-16.0) gm/dL Hct (34.0-46.0) % Neutrophils # (Manual) (1.3-7.7) k/uL Metamyelocytes # (Man) (0) k/uL ABG pH (7.35-7.45) ABG pO2 (83-108) mmHg ABG Total CO2 (19-24) mmol/L ABG O2 Saturation (94-97) % Sodium (137-145) mmol/L Potassium (3.5-5.1) mmol/L BUN (7-17) mg/dL Glucose (74-99) mg/dL POC Glucose (mg/dL) 145 H 140 H (70-110) mg/dL Calcium (8.4-10.2) mg/dL Creatine Kinase (30-135) U/L Crossmatch See Detail 04/04/23 04/04/23 04/04/23 Range/Units 14:22 16:03 17:58 WBC (3.8-10.6) k/uL RBC (3.80-5.40) m/uL Hgb (11.4-16.0) gm/dL Hct (34.0-46.0) % Neutrophils # (Manual) (1.3-7.7) k/uL Metamyelocytes # (Man) (0) k/uL ABG pH (7.35-7.45) ABG pO2 (83-108) mmHg ABG Total CO2 (19-24) mmol/L ABG O2 Saturation (94-97) % Sodium (137-145) mmol/L Potassium (3.5-5.1) mmol/L BUN (7-17) mg/dL Glucose (74-99) mg/dL POC Glucose (mg/dL) 135 H 116 H 129 H (70-110) mg/dL Calcium (8.4-10.2) mg/dL Creatine Kinase (30-135) U/L Crossmatch 04/04/23 04/04/23 04/04/23 Range/Units 18:48 18:52 19:48 WBC (3.8-10.6) k/uL RBC (3.80-5.40) m/uL Hgb (11.4-16.0) gm/dL Hct (34.0-46.0) % Neutrophils # (Manual) (1.3-7.7) k/uL Metamyelocytes # (Man) (0) k/uL ABG pH (7.35-7.45) ABG pO2 (83-108) mmHg ABG Total CO2 (19-24) mmol/L ABG O2 Saturation (94-97) % Sodium (137-145) mmol/L Potassium 3.4 L (3.5-5.1) mmol/L BUN (7-17) mg/dL Glucose (74-99) mg/dL POC Glucose (mg/dL) 147 H 32 L (70-110) mg/dL Calcium (8.4-10.2) mg/dL Creatine Kinase (30-135) U/L Crossmatch 04/04/23 04/04/23 04/04/23 Range/Units 19:49 21:44 23:32 WBC (3.8-10.6) k/uL RBC (3.80-5.40) m/uL Hgb (11.4-16.0) gm/dL Hct (34.0-46.0) % Neutrophils # (Manual) (1.3-7.7) k/uL Metamyelocytes # (Man) (0) k/uL ABG pH (7.35-7.45) ABG pO2 (83-108) mmHg ABG Total CO2 (19-24) mmol/L ABG O2 Saturation (94-97) % Sodium (137-145) mmol/L Potassium (3.5-5.1) mmol/L BUN (7-17) mg/dL Glucose (74-99) mg/dL POC Glucose (mg/dL) 130 H 131 H 135 H (70-110) mg/dL Calcium (8.4-10.2) mg/dL Creatine Kinase (30-135) U/L Crossmatch 04/05/23 04/05/23 04/05/23 Range/Units 00:16 01:47 03:51 WBC (3.8-10.6) k/uL RBC (3.80-5.40) m/uL Hgb (11.4-16.0) gm/dL Hct (34.0-46.0) % Neutrophils # (Manual) (1.3-7.7) k/uL Metamyelocytes # (Man) (0) k/uL ABG pH (7.35-7.45) ABG pO2 (83-108) mmHg ABG Total CO2 (19-24) mmol/L ABG O2 Saturation (94-97) % Sodium (137-145) mmol/L Potassium (3.5-5.1) mmol/L BUN (7-17) mg/dL Glucose (74-99) mg/dL POC Glucose (mg/dL) 126 H 133 H 147 H (70-110) mg/dL Calcium (8.4-10.2) mg/dL Creatine Kinase (30-135) U/L Crossmatch 04/05/23 04/05/23 04/05/23 Range/Units 04:00 04:00 04:38 WBC 17.2 H (3.8-10.6) k/uL RBC 2.05 L (3.80-5.40) m/uL Hgb 6.9 L* (11.4-16.0) gm/dL Hct 20.2 L (34.0-46.0) % Neutrophils # (Manual) 15.30 H (1.3-7.7) k/uL Metamyelocytes # (Man) 0.34 H (0) k/uL ABG pH (7.35-7.45) ABG pO2 (83-108) mmHg ABG Total CO2 (19-24) mmol/L ABG O2 Saturation (94-97) % Sodium 130 L (137-145) mmol/L Potassium (3.5-5.1) mmol/L BUN 23 H (7-17) mg/dL Glucose 140 H (74-99) mg/dL POC Glucose (mg/dL) 156 H (70-110) mg/dL Calcium 7.2 L (8.4-10.2) mg/dL Creatine Kinase 237 H (30-135) U/L Crossmatch 04/05/23 04/05/23 04/05/23 Range/Units 05:17 05:31 06:02 WBC (3.8-10.6) k/uL RBC (3.80-5.40) m/uL Hgb (11.4-16.0) gm/dL Hct (34.0-46.0) % Neutrophils # (Manual) (1.3-7.7) k/uL Metamyelocytes # (Man) (0) k/uL ABG pH 7.46 H (7.35-7.45) ABG pO2 115 H (83-108) mmHg ABG Total CO2 26 H (19-24) mmol/L ABG O2 Saturation 98.6 H (94-97) % Sodium (137-145) mmol/L Potassium (3.5-5.1) mmol/L BUN (7-17) mg/dL Glucose (74-99) mg/dL POC Glucose (mg/dL) 162 H 173 H (70-110) mg/dL Calcium (8.4-10.2) mg/dL Creatine Kinase (30-135) U/L Crossmatch 04/05/23 Range/Units 07:13 WBC (3.8-10.6) k/uL RBC (3.80-5.40) m/uL Hgb (11.4-16.0) gm/dL Hct (34.0-46.0) % Neutrophils # (Manual) (1.3-7.7) k/uL Metamyelocytes # (Man) (0) k/uL ABG pH (7.35-7.45) ABG pO2 (83-108) mmHg ABG Total CO2 (19-24) mmol/L ABG O2 Saturation (94-97) % Sodium (137-145) mmol/L Potassium (3.5-5.1) mmol/L BUN (7-17) mg/dL Glucose (74-99) mg/dL POC Glucose (mg/dL) 155 H (70-110) mg/dL Calcium (8.4-10.2) mg/dL Creatine Kinase (30-135) U/L Crossmatch Assessment and Plan Plan: Acute hypoxemic respiratory failure, requiring intubation and mechanical ventilation, subsequent to repair of a dural tear, secondary to a large-volume gastric aspiration. S/P intubation and mechanical ventilation, for respiratory failure, 03/29/2023. Presentation is typical of post aspiration pneumonia with secondary ARDS and the patient is currently sedated and paralyzed. The patient remains sedated on a mechanical ventilator. She is off paralytics for now. There is ongoing improvement in the patient's oxygenation. The patient's blood gas was reviewed the chest x-ray was reviewed. There is development of small bilateral pleural effusion. The patient also has a gram-negative aspiration pneumonia/ARDS. He can static aortic pressures aren't improving. Acute respiratory distress syndrome. Aspiration pneumonia secondary to Enterobacter and Klebsiella and the patient remains on IV Zosyn Acute Atrial fibrillation with RVR. The current cardiac rhythm is sinus and the patient remains on amiodarone maintenance. Echo cardiac exam shows a preserved LV function without any significant valvular abnormalities, cardiac rhythm remained sinus Lumbar spondylosis and spondylolisthesis, the initial surgery was done on 03/21/2023 status post postop day # 14, T10 to pelvic decompression and fusion. The patient was taken back to the operating room on 03/29/2023 for repair of a dural leak Severe hypotension, likely secondary to sepsis, currently the patient is off pressors Non-anion gap metabolic acidosis, improved with bicarb infusion History of lumbar radiculopathy. Type 2 diabetes mellitus. The patient is on insulin drip, currently running at 5 units an hour Benign essential hypertension. History of hyperlipidemia. Steroid-induced hyperglycemia the patient is currently on insulin drip running at 5 units an hour Ileus, started on a combination of methyl naltrexone and Reglan, some improvement in the flat abdominal film that was done yesterday although there is still some colonic distention. The patient was given an enema yesterday. Anemia of chronic disease with a drop in hemoglobin down to 6.9, normal Cetamide and. No evidence of any acute bleeding. The patient will be given a unit of packed RBC. Plan: The patient will be given a unit of packed RBC Keep the patient sedated with accommodation of fentanyl and propofol Keep the patient off paralytics Stop the bicarb infusion and KVO the patient's IV fluids Increase the Lasix to 80 mg every 8 hours Continue IV Solu-Medrol Continue insulin drip for blood sugar control Continue IV Zosyn Repeat x-ray of the abdomen to check for any air-fluid levels No feeding yet, possible TPN if unable to improved bowel motility No pressors for now Dropped FiO2 down to 40% and dropped to keep down to 8 Dietary to make recommendations on possible TPN Not ready for any further weaning at this point in time. Conditions other significant critical continue to follow make further recommendations based on her progress. Critical care evaluation that was done in more than 30 minutes. Time with Patient: Greater than 30
[2023-04-05 09:39] LABS: Vitamin B12 >3600.0 pg/mL (200.0-944.0)
[2023-04-05] MEDS: FUROSEMIDE 10 MG/ML 4 ML VIAL IV SCH ×2 (09:40→16:57)
--- NOTE | 2023-04-05 09:40 | XR ---
EXAMINATION TYPE: XR abdomen 1V DATE OF EXAM: 04/05/2023 Comparison: 04/04/2023 Clinical History: 73-year-old female with abdominal distention Findings: Lower thoracic pelvic posterior fusion. Posterior midline skin trinh. NG tube is in place. Gas in c olon. Slight decrease in descending colon distention measuring 7.7 cm. Enteric contrast is demonstrat ed throughout the colon extending into the sigmoid colon with gas within the rectum. No dilated small bowel loops are seen. Post surgical changes of right total hip arthroplasty. Cholecystectomy clips i n the right upper quadrant. Impression: Enteric contrast now demonstrated throughout the colon extending to the sigmoid colon. Slight decreas e in distention of the cecum from prior examination.
[2023-04-05 10:07] LABS: Glucose,Whole Blood 147 mg/dL (70-110)
--- NOTE | 2023-04-05 11:06 | P.PN ---
Subjective Progress Note Date: 04/05/23 Patient is a 72-year-old female with dyslipidemia, hypertension, [id number] diabetes mellitus type 2 who presented for elective T10 to pelvis decompression and fusion. We were consulted for medical management. She underwent successful decompression and fusion on 03/21, however, her postoperative hospital course was complicated by positional headache suspicious for CSF leak. Subsequently, she was taken back to the operating room on 03/29 for CSF repair. During intubation, patient was noted to have significant amounts of the aspirate emesis and oropharynx and after intubation she was noted to have 1.2 L of gastric output from OG tube. During the procedure she had incr easing FiO2 requirements. Postoperatively she became hypotensive down to the 70s/30s and hypoxia down to the mid 60s despite FiO2 of 100% and PEEP of 12. She was transferred to the ICU and started on the Levophed. Differential diagnosis of septic shock secondary to meningitis versus aspiration pneumonia as well as hypovolemic shock secondary to CSF volume loss were considered. She was administered 3L of lactated Ringer's. Chest x-ray postoperatively on 03/29 demonstrated diffuse pulmonary edema with concern for ARDS superimposed on aspiration. Empiric antibiotics were started with vancomycin, ceftriaxone, Unasynfor empiric coverage of both meningitis and aspiration pneumonia/ Infectious disease was consulted. Sputum culture was positive for Klebsiella and Enterobacter with variable resistance. Pro-calcitonin was elevated at 6.7. Her CVP was monitored and remained stable between 13 and 15. Echocardiogram showed EF 60-65%, mild TR, and moderate pulmonary hypertension. Patient was noted to not have a bowel movement in approximately 5 days as of 03/29 and Gen. surgery was consulted for ileus. She developed sepsis induced atrial fibrillation with RVR, was started on amiodarone drip and converted back to normal sinus rhythm. She is placed on metoprolol once her pressor requirements started to decrease on 04/01, however, this was held after pressor requirements increased again on 04/03. Discussed with orthopedic surgery that no anticoagulation will be given for atrial fibrillation during the critical phase, but can be initiated once patient is able to be transitioned to the floor. She did require nimbex which was successfully stopped on 04/03/23, she was given relistor on 04/03/23. She was able to come off levo on 04/04/23. Patient seen and examined at bedside. Patient sedated on vent. D/W nursing and no acute events overnight. Able to come off levo yesterday, vaso down to 0.01 units. Peep decreased today to 8. No BM yet. Vital signs reviewed General: nontoxic, no distress, appears at stated age Cardiovascular: S1S2 reg, no murmur, positive posterior tibial pulse bilateral, Lungs: Coarse breath sounds bilateral, no rhonchi, no rales , no accessory muscle use Abdominal: soft, nontender to palpation, no guarding, no appreciable organomegaly Ext: no gross muscle atrophy, diffuse anasarca with weeping, no contractures Neuro: Pupils pin point Psych: sedated on vent Assessment/Plan: Multi-focal pneumonia,due to Klebsiella nad Enterobacter complicated by septic shock Ventilator Dependent Acute Hypoxemic and Hypercarbic Respiratory Failure, ARDS Postoperative ileus - vasopressin at 0.01 units/min, off levo - Zosyn D #3 -continue propofol, attempt to wean -Methyl-naltrexone administered 04/03, repeat today -Continue with dulcolax 10 mg daily rectal, Reglan 10 mg every 6 hours scheduled IV, MiraLAX 17 mg by mouth daily, Senokot 1 by mouth twice daily -Await further Surgery recs -Await further ID recs - Pulm note reviewed: lasix increased, possible TPN if unable to tolerate TF. increase Lasix to 40 every 8 hours, continue IV Solu-Medrol Sepsis induced atrial fibrillation with RVR, paroxysmal -Amiodarone 200 mg oral twice daily as patient has required amiodarone IV infusion on 2 different occasions. -Patient will require anticoagulation when she is no longer critical Non-anion gap metabolic acidosis -Continue with D5W with 3 A of bicarbonate at 75 mL/h 72-year-old female status post T10 to pelvis decompression with fusion s/p CSF repair on 03/29 - Await further Orthospine recs Acute blood loss anemia - 1 unit pRBC today -Anticipated outcome of surgery/prolonged ICU stay -Follow CBC Diabetes mellitus type 2 -Hold metformin -Currently on insulin drip -Follow blood sugars Dyslipidemia -Gemfibrozil Hypertension - antihypertensives on hold Metabolic acidosis, resolved Imaging: Chest x-ray as reviewed by myself from 04/05/23 demonstrates diffuse interstitial infiltrate left greater than right Data Review: Vitals reviewed and remarkable for pulse 70, respirations 32, blood pressure 120/74, O2 sat 99% on 30% vent Labs reviewed and remarkable for white blood cell count 17.2, hemoglobin 6.9, sodium 1:30, triglycerides 12/19/2021 to 37, ferritin 1306, TIBC 202, iron 53, T sat 29.24 Blood sugars reviewed for the last 24 hours have ranged from 141-173 DVT prophylaxis: Heparin SC Anticipated discharge date: Pending Clinical Course Anticipated discharge place: Pending Clinical Course This dictation was prepared using [employer] voice recognition software. Though every attempt is made to correct errors during dictation some may still exist. Objective - Vital Signs Vital signs: Vital Signs Temp 98.9 F 04/05/23 09:06 Pulse 73 04/05/23 10:30 Resp 32 H 04/05/23 10:30 BP 120/47 04/05/23 09:06 Pulse Ox 98 04/05/23 10:00 FiO2 40 04/05/23 09:00 Intake & Output 04/04/23 04/05/23 04/05/23 18:59 06:59 18:59 Intake Total 2002.762 2031.784 629.213 Output Total 2345 1430 950 Balance -342.238 601.784 -320.787 Weight 108.5 kg Intake: IV 139 143 52 0.9NS 80 110 40 0.9NS Pressure Bag 39 33 12 Lactated Ringers 1,000 ml 20 @ 20 mls/hr IV .Q24H [facility] Rx#:[id number] Intake, IV Titration 7471.851 6974.784 267.213 Amount Dextrose 5% in Water 1, 975 825 150 000 ml @ 75 mls/hr IV . [id number] [facility] with Sodium Bicarb (1 Meq/ml) 150 ml Rx#:[id number] Insulin Regular 100 unit 53.168 35.536 In Sodium Chloride 0.9% 100 ml @ Per Protocol IV .Q0M [facility] Rx#:[id number] Norepinephrine 32 mg In 10.462 Sodium Chloride 0.9% 218 ml @ 0.03 MCG/KG/MIN 1. 364 mls/hr IV .Q24H [facility] Rx#:[id number] Piperacillin-Tazobactam 3 100 .375 gm In Sodium Chloride 0.9% 100 ml @ 25 mls/hr IVPB Q8HR [facility] Rx# :[id number] Potassium Chloride 10 meq 200 In Water For Injection 1 100ml.bag @ 100 mls/hr IVPB Q1H [facility] Rx#: [id number] Potassium Chloride 10 meq 500 In Water For Injection 1 100ml.bag @ 100 mls/hr IVPB Q1H [facility] Rx#: [id number] Potassium Chloride 20 meq 100 In Water For Injection 1 100ml.bag @ 50 mls/hr IVPB Q2H [facility] Rx#: [id number] Vasopressin 60 unit In 134.232 36.363 17.213 Sodium Chloride 0.9% 150 ml @ 0.04 UNITS/MIN 6.12 mls/hr IV .Q24H [facility] Rx#: [id number] fentaNYL (PF). 1,000 mcg 111.360 97.280 In Sodium Chloride 0.9% 80 ml @ 0.5 MCG/KG/HR 5. 12 mls/hr IV .[id number] [facility] Rx#:[id number] propofoL 1,000 mg In 279.540 269.605 100 Empty Bag 1 bag @ 15 MCG/ KG/MIN 8.73 mls/hr IV . [id number] [facility] Rx#:[id number] Blood Product 0 310 Rc As-1 Unit 0 310 [id number] Other 25 Output: Gastric Drainage 400 500 Urine 1945 1430 450 Other: Voiding Method Indwelling Catheter Indwelling Catheter ABP, PAP, CO, CI - Last Documented Arterial Blood Pressure 129/48 - Labs CBC & Chem 7: 04/05/23 04:00 04/05/23 04:00 Labs: Abnormal Lab Results - Last 24 Hours (Table) 04/02/23 04/04/23 04/04/23 Range/Units 11:42 11:06 11:59 WBC (3.8-10.6) k/uL RBC (3.80-5.40) m/uL Hgb (11.4-16.0) gm/dL Hct (34.0-46.0) % Neutrophils # (Manual) (1.3-7.7) k/uL Metamyelocytes # (Man) (0) k/uL ABG pH (7.35-7.45) ABG pO2 (83-108) mmHg ABG Total CO2 (19-24) mmol/L ABG O2 Saturation (94-97) % Sodium (137-145) mmol/L Potassium (3.5-5.1) mmol/L BUN (7-17) mg/dL Glucose (74-99) mg/dL POC Glucose (mg/dL) 145 H 140 H (70-110) mg/dL Calcium (8.4-10.2) mg/dL TIBC (228-460) UG/DL Transferrin (204.0-354.0) mg/dL Ferritin (10.0-291.0) ng/mL Creatine Kinase (30-135) U/L Triglycerides (0.00-149.00) mg/dL Vitamin B12 (200.0-944.0) pg/mL Crossmatch See Detail 04/04/23 04/04/23 04/04/23 Range/Units 14:22 16:03 17:58 WBC (3.8-10.6) k/uL RBC (3.80-5.40) m/uL Hgb (11.4-16.0) gm/dL Hct (34.0-46.0) % Neutrophils # (Manual) (1.3-7.7) k/uL Metamyelocytes # (Man) (0) k/uL ABG pH (7.35-7.45) ABG pO2 (83-108) mmHg ABG Total CO2 (19-24) mmol/L ABG O2 Saturation (94-97) % Sodium (137-145) mmol/L Potassium (3.5-5.1) mmol/L BUN (7-17) mg/dL Glucose (74-99) mg/dL POC Glucose (mg/dL) 135 H 116 H 129 H (70-110) mg/dL Calcium (8.4-10.2) mg/dL TIBC (228-460) UG/DL Transferrin (204.0-354.0) mg/dL Ferritin (10.0-291.0) ng/mL Creatine Kinase (30-135) U/L Triglycerides (0.00-149.00) mg/dL Vitamin B12 (200.0-944.0) pg/mL Crossmatch 04/04/23 04/04/23 04/04/23 Range/Units 18:48 18:52 19:48 WBC (3.8-10.6) k/uL RBC (3.80-5.40) m/uL Hgb (11.4-16.0) gm/dL Hct (34.0-46.0) % Neutrophils # (Manual) (1.3-7.7) k/uL Metamyelocytes # (Man) (0) k/uL ABG pH (7.35-7.45) ABG pO2 (83-108) mmHg ABG Total CO2 (19-24) mmol/L ABG O2 Saturation (94-97) % Sodium (137-145) mmol/L Potassium 3.4 L (3.5-5.1) mmol/L BUN (7-17) mg/dL Glucose (74-99) mg/dL POC Glucose (mg/dL) 147 H 32 L (70-110) mg/dL Calcium (8.4-10.2) mg/dL TIBC (228-460) UG/DL Transferrin (204.0-354.0) mg/dL Ferritin (10.0-291.0) ng/mL Creatine Kinase (30-135) U/L Triglycerides (0.00-149.00) mg/dL Vitamin B12 (200.0-944.0) pg/mL Crossmatch 04/04/23 04/04/23 04/04/23 Range/Units 19:49 21:44 23:32 WBC (3.8-10.6) k/uL RBC (3.80-5.40) m/uL Hgb (11.4-16.0) gm/dL Hct (34.0-46.0) % Neutrophils # (Manual) (1.3-7.7) k/uL Metamyelocytes # (Man) (0) k/uL ABG pH (7.35-7.45) ABG pO2 (83-108) mmHg ABG Total CO2 (19-24) mmol/L ABG O2 Saturation (94-97) % Sodium (137-145) mmol/L Potassium (3.5-5.1) mmol/L BUN (7-17) mg/dL Glucose (74-99) mg/dL POC Glucose (mg/dL) 130 H 131 H 135 H (70-110) mg/dL Calcium (8.4-10.2) mg/dL TIBC (228-460) UG/DL Transferrin (204.0-354.0) mg/dL Ferritin (10.0-291.0) ng/mL Creatine Kinase (30-135) U/L Triglycerides (0.00-149.00) mg/dL Vitamin B12 (200.0-944.0) pg/mL Crossmatch 04/05/23 04/05/23 04/05/23 Range/Units 00:16 01:47 03:51 WBC (3.8-10.6) k/uL RBC (3.80-5.40) m/uL Hgb (11.4-16.0) gm/dL Hct (34.0-46.0) % Neutrophils # (Manual) (1.3-7.7) k/uL Metamyelocytes # (Man) (0) k/uL ABG pH (7.35-7.45) ABG pO2 (83-108) mmHg ABG Total CO2 (19-24) mmol/L ABG O2 Saturation (94-97) % Sodium (137-145) mmol/L Potassium (3.5-5.1) mmol/L BUN (7-17) mg/dL Glucose (74-99) mg/dL POC Glucose (mg/dL) 126 H 133 H 147 H (70-110) mg/dL Calcium (8.4-10.2) mg/dL TIBC (228-460) UG/DL Transferrin (204.0-354.0) mg/dL Ferritin (10.0-291.0) ng/mL Creatine Kinase (30-135) U/L Triglycerides (0.00-149.00) mg/dL Vitamin B12 (200.0-944.0) pg/mL Crossmatch 04/05/23 04/05/23 04/05/23 Range/Units 04:00 04:00 04:38 WBC 17.2 H (3.8-10.6) k/uL RBC 2.05 L (3.80-5.40) m/uL Hgb 6.9 L* (11.4-16.0) gm/dL Hct 20.2 L (34.0-46.0) % Neutrophils # (Manual) 15.30 H (1.3-7.7) k/uL Metamyelocytes # (Man) 0.34 H (0) k/uL ABG pH (7.35-7.45) ABG pO2 (83-108) mmHg ABG Total CO2 (19-24) mmol/L ABG O2 Saturation (94-97) % Sodium 130 L (137-145) mmol/L Potassium (3.5-5.1) mmol/L BUN 23 H (7-17) mg/dL Glucose 140 H (74-99) mg/dL POC Glucose (mg/dL) 156 H (70-110) mg/dL Calcium 7.2 L (8.4-10.2) mg/dL TIBC 202 L (228-460) UG/DL Transferrin 144.0 L (204.0-354.0) mg/dL Ferritin 1306.0 H (10.0-291.0) ng/mL Creatine Kinase 237 H (30-135) U/L Triglycerides 417.00 H (0.00-149.00) mg/dL Vitamin B12 >3600.0 H (200.0-944.0) pg/mL Crossmatch 04/05/23 04/05/23 04/05/23 Range/Units 05:17 05:31 06:02 WBC (3.8-10.6) k/uL RBC (3.80-5.40) m/uL Hgb (11.4-16.0) gm/dL Hct (34.0-46.0) % Neutrophils # (Manual) (1.3-7.7) k/uL Metamyelocytes # (Man) (0) k/uL ABG pH 7.46 H (7.35-7.45) ABG pO2 115 H (83-108) mmHg ABG Total CO2 26 H (19-24) mmol/L ABG O2 Saturation 98.6 H (94-97) % Sodium (137-145) mmol/L Potassium (3.5-5.1) mmol/L BUN (7-17) mg/dL Glucose (74-99) mg/dL POC Glucose (mg/dL) 162 H 173 H (70-110) mg/dL Calcium (8.4-10.2) mg/dL TIBC (228-460) UG/DL Transferrin (204.0-354.0) mg/dL Ferritin (10.0-291.0) ng/mL Creatine Kinase (30-135) U/L Triglycerides (0.00-149.00) mg/dL Vitamin B12 (200.0-944.0) pg/mL Crossmatch 04/05/23 04/05/23 04/05/23 Range/Units 07:13 09:15 10:05 WBC (3.8-10.6) k/uL RBC (3.80-5.40) m/uL Hgb (11.4-16.0) gm/dL Hct (34.0-46.0) % Neutrophils # (Manual) (1.3-7.7) k/uL Metamyelocytes # (Man) (0) k/uL ABG pH (7.35-7.45) ABG pO2 (83-108) mmHg ABG Total CO2 (19-24) mmol/L ABG O2 Saturation (94-97) % Sodium (137-145) mmol/L Potassium (3.5-5.1) mmol/L BUN (7-17) mg/dL Glucose (74-99) mg/dL POC Glucose (mg/dL) 155 H 141 H 147 H (70-110) mg/dL Calcium (8.4-10.2) mg/dL TIBC (228-460) UG/DL Transferrin (204.0-354.0) mg/dL Ferritin (10.0-291.0) ng/mL Creatine Kinase (30-135) U/L Triglycerides (0.00-149.00) mg/dL Vitamin B12 (200.0-944.0) pg/mL Crossmatch
[2023-04-05] MEDS: fentaNYL (PF). 1,000 MCG in SODIUM CHLORIDE 0.9% 80 ML IV SCH ×2 (11:37→20:54)
[2023-04-05] MEDS: DEXTROSE 5% IN WATER 1,000 ML with SODIUM BICARB (1 MEQ/ML) 150 ML IV SCH (11:39)
[2023-04-05] MEDS: LACTATED RINGERS 1,000 ML IV SCH (11:40)
[2023-04-05] MEDS ORDERED: METHYLNALTREXONE BROMIDE 12 MG/0.6 ML VIAL SQ ONE (12:00)
[2023-04-05 12:19] LABS: Glucose,Whole Blood 132 mg/dL (70-110)
[2023-04-05] MEDS: INSULIN REGULAR 100 UNIT in SODIUM CHLORIDE 0.9% 100 ML IV SCH (12:20)
[2023-04-05] MEDS: MAGNESIUM SULFATE-D5W PMX 1 GM in DEXTROSE/WATER 1 100ML.BAG IVPB SCH ×2 (12:26→13:58)
[2023-04-05 12:53] LABS: Magnesium 1.8 mg/dL (1.6-2.3); Phosphorus 2.6 mg/dL (2.5-4.5); Potassium 3.6 mmol/L (3.5-5.1)
[2023-04-05 13:03] LABS: HCT 24.4 % (34.0-46.0); MCH 33.4 pg (25.0-35.0); MCHC 34.8 g/dL (31.0-37.0); MCV 96.2 fL (80.0-100.0); Mean Platelet Volume 8.9; Platelet Count 234 k/uL (150-450); Poikilocytosis Slight; RBC 2.54 m/uL (3.80-5.40); RDW 14.7 % (11.5-15.5)
--- NOTE | 2023-04-05 13:03 | P.PN ---
Subjective Progress Note Date: 04/05/23 CHIEF COMPLAINT: Back pain HISTORY OF PRESENT ILLNESS: Patient remains in the ICU and on mechanical venti lation. Patient's tube feeds remain off. Patient had 500 mL residual intermittent didn't she is having flatus. Patient did have a smear of a BM. She did receive a Fleet enema. She's off the Levophed. They're weaning her off the vasopressin. Patient is receiving 1 unit of blood for hemoglobin 6.9. She is afebrile. WBC 15 up to 17.2 PHYSICAL EXAM: VITAL SIGNS: Reviewed. GENERAL: Well-developed in no acute distress. ABDOMEN: softer. mildly distended NEUROLOGIC: Sedated and on mechanical ventilation ASSESSMENT: 1. Postop ileus 2. Status post T10 to pelvis decompression with fusion with drainage from surgical site status post irrigation and debridement 3. Possible aspiration pneumonia PLAN: -Continue to hold tube feeds -Continue OG tube for decompression -Continue Reglan 10 mg IV every 6 hours -Continue Dulcolax suppository daily -Continue ICU management and supportive care Physician Head Knitting Machine Fixer note has been reviewed by physician. Signing provider agrees with the documented findings, assessment, and plan of care. Objective - Vital Signs Vital signs: Vital Signs Temp 98.9 F 04/05/23 09:06 Pulse 68 04/05/23 12:30 Resp 32 H 04/05/23 12:30 BP 120/47 04/05/23 09:06 Pulse Ox 97 04/05/23 12:30 FiO2 40 04/05/23 12:00 Intake & Output 04/04/23 04/05/23 04/05/23 18:59 06:59 18:59 Intake Total 761.784 1052.322 Output Total 2345 1430 1750 Balance -342.238 601.784 -697.678 Weight 108.5 kg 108.5 kg Intake: IV 139 143 58 0.9NS 80 110 40 0.9NS Pressure Bag 39 33 18 Lactated Ringers 1,000 ml 20 @ 20 mls/hr IV .Q24H [facility] Rx#:[id number] Intake, IV Titration 5490.629 9223.784 684.322 Amount Dextrose 5% in Water 1, 975 825 150 000 ml @ 75 mls/hr IV . [id number] [facility] with Sodium Bicarb (1 Meq/ml) 150 ml Rx#:[id number] Insulin Regular 100 unit 53.168 35.536 33.835 In Sodium Chloride 0.9% 100 ml @ Per Protocol IV .Q0M [facility] Rx#:[id number] Norepinephrine 32 mg In 10.462 Sodium Chloride 0.9% 218 ml @ 0.03 MCG/KG/MIN 1. 364 mls/hr IV .Q24H [facility] Rx#:[id number] Piperacillin-Tazobactam 3 100 .375 gm In Sodium Chloride 0.9% 100 ml @ 25 mls/hr IVPB Q8HR [facility] Rx# :[id number] Potassium Chloride 10 meq 200 In Water For Injection 1 100ml.bag @ 100 mls/hr IVPB Q1H [facility] Rx#: [id number] Potassium Chloride 10 meq 500 In Water For Injection 1 100ml.bag @ 100 mls/hr IVPB Q1H [facility] Rx#: [id number] Potassium Chloride 10 meq 300 In Water For Injection 1 100ml.bag @ 100 mls/hr IVPB Q1HR [facility] Rx#: [id number] Potassium Chloride 20 meq 100 In Water For Injection 1 100ml.bag @ 50 mls/hr IVPB Q2H [facility] Rx#: [id number] Vasopressin 60 unit In 134.232 36.363 17.213 Sodium Chloride 0.9% 150 ml @ 0.04 UNITS/MIN 6.12 mls/hr IV .Q24H [facility] Rx#: [id number] fentaNYL (PF). 1,000 mcg 111.360 97.280 49.227 In Sodium Chloride 0.9% 80 ml @ 0.5 MCG/KG/HR 5. 12 mls/hr IV .[id number] [facility] Rx#:[id number] propofoL 1,000 mg In 279.540 269.605 134.047 Empty Bag 1 bag @ 15 MCG/ KG/MIN 8.73 mls/hr IV . [id number] [facility] Rx#:[id number] Blood Product 0 310 Rc As-1 Unit 0 310 [id number] Other 25 Output: Gastric Drainage 400 500 Urine 1945 1430 1250 Other: Voiding Method Indwelling Catheter Indwelling Catheter ABP, PAP, CO, CI - Last Documented Arterial Blood Pressure 104/55 - Labs CBC & Chem 7: 04/05/23 04:04/05/23 12:19 Labs: Abnormal Lab Results - Last 24 Hours (Table) 04/02/23 04/04/23 04/04/23 Range/Units 11:42 14:22 16:03 WBC (3.8-10.6) k/uL RBC (3.80-5.40) m/uL Hgb (11.4-16.0) gm/dL Hct (34.0-46.0) % Neutrophils # (Manual) (1.3-7.7) k/uL Metamyelocytes # (Man) (0) k/uL ABG pH (7.35-7.45) ABG pO2 (83-108) mmHg ABG Total CO2 (19-24) mmol/L ABG O2 Saturation (94-97) % Sodium (137-145) mmol/L Potassium (3.5-5.1) mmol/L BUN (7-17) mg/dL Glucose (74-99) mg/dL POC Glucose (mg/dL) 135 H 116 H (70-110) mg/dL Calcium (8.4-10.2) mg/dL TIBC (228-460) UG/DL Transferrin (204.0-354.0) mg/dL Ferritin (10.0-291.0) ng/mL Creatine Kinase (30-135) U/L Triglycerides (0.00-149.00) mg/dL Vitamin B12 (200.0-944.0) pg/mL Crossmatch See Detail 04/04/23 04/04/23 04/04/23 Range/Units 17:58 18:48 18:52 WBC (3.8-10.6) k/uL RBC (3.80-5.40) m/uL Hgb (11.4-16.0) gm/dL Hct (34.0-46.0) % Neutrophils # (Manual) (1.3-7.7) k/uL Metamyelocytes # (Man) (0) k/uL ABG pH (7.35-7.45) ABG pO2 (83-108) mmHg ABG Total CO2 (19-24) mmol/L ABG O2 Saturation (94-97) % Sodium (137-145) mmol/L Potassium 3.4 L (3.5-5.1) mmol/L BUN (7-17) mg/dL Glucose (74-99) mg/dL POC Glucose (mg/dL) 129 H 147 H (70-110) mg/dL Calcium (8.4-10.2) mg/dL TIBC (228-460) UG/DL Transferrin (204.0-354.0) mg/dL Ferritin (10.0-291.0) ng/mL Creatine Kinase (30-135) U/L Triglycerides (0.00-149.00) mg/dL Vitamin B12 (200.0-944.0) pg/mL Crossmatch 04/04/23 04/04/23 04/04/23 Range/Units 19:48 19:49 21:44 WBC (3.8-10.6) k/uL RBC (3.80-5.40) m/uL Hgb (11.4-16.0) gm/dL Hct (34.0-46.0) % Neutrophils # (Manual) (1.3-7.7) k/uL Metamyelocytes # (Man) (0) k/uL ABG pH (7.35-7.45) ABG pO2 (83-108) mmHg ABG Total CO2 (19-24) mmol/L ABG O2 Saturation (94-97) % Sodium (137-145) mmol/L Potassium (3.5-5.1) mmol/L BUN (7-17) mg/dL Glucose (74-99) mg/dL POC Glucose (mg/dL) 32 L 130 H 131 H (70-110) mg/dL Calcium (8.4-10.2) mg/dL TIBC (228-460) UG/DL Transferrin (204.0-354.0) mg/dL Ferritin (10.0-291.0) ng/mL Creatine Kinase (30-135) U/L Triglycerides (0.00-149.00) mg/dL Vitamin B12 (200.0-944.0) pg/mL Crossmatch 04/04/23 04/05/23 04/05/23 Range/Units 23:32 00:16 01:47 WBC (3.8-10.6) k/uL RBC (3.80-5.40) m/uL Hgb (11.4-16.0) gm/dL Hct (34.0-46.0) % Neutrophils # (Manual) (1.3-7.7) k/uL Metamyelocytes # (Man) (0) k/uL ABG pH (7.35-7.45) ABG pO2 (83-108) mmHg ABG Total CO2 (19-24) mmol/L ABG O2 Saturation (94-97) % Sodium (137-145) mmol/L Potassium (3.5-5.1) mmol/L BUN (7-17) mg/dL Glucose (74-99) mg/dL POC Glucose (mg/dL) 135 H 126 H 133 H (70-110) mg/dL Calcium (8.4-10.2) mg/dL TIBC (228-460) UG/DL Transferrin (204.0-354.0) mg/dL Ferritin (10.0-291.0) ng/mL Creatine Kinase (30-135) U/L Triglycerides (0.00-149.00) mg/dL Vitamin B12 (200.0-944.0) pg/mL Crossmatch 04/05/23 04/05/23 04/05/23 Range/Units 03:51 04:00 04:00 WBC 17.2 H (3.8-10.6) k/uL RBC 2.05 L (3.80-5.40) m/uL Hgb 6.9 L* (11.4-16.0) gm/dL Hct 20.2 L (34.0-46.0) % Neutrophils # (Manual) 15.30 H (1.3-7.7) k/uL Metamyelocytes # (Man) 0.34 H (0) k/uL ABG pH (7.35-7.45) ABG pO2 (83-108) mmHg ABG Total CO2 (19-24) mmol/L ABG O2 Saturation (94-97) % Sodium 130 L (137-145) mmol/L Potassium (3.5-5.1) mmol/L BUN 23 H (7-17) mg/dL Glucose 140 H (74-99) mg/dL POC Glucose (mg/dL) 147 H (70-110) mg/dL Calcium 7.2 L (8.4-10.2) mg/dL TIBC 202 L (228-460) UG/DL Transferrin 144.0 L (204.0-354.0) mg/dL Ferritin 1306.0 H (10.0-291.0) ng/mL Creatine Kinase 237 H (30-135) U/L Triglycerides 417.00 H (0.00-149.00) mg/dL Vitamin B12 >3600.0 H (200.0-944.0) pg/mL Crossmatch 04/05/23 04/05/23 04/05/23 Range/Units 04:38 05:17 05:31 WBC (3.8-10.6) k/uL RBC (3.80-5.40) m/uL Hgb (11.4-16.0) gm/dL Hct (34.0-46.0) % Neutrophils # (Manual) (1.3-7.7) k/uL Metamyelocytes # (Man) (0) k/uL ABG pH 7.46 H (7.35-7.45) ABG pO2 115 H (83-108) mmHg ABG Total CO2 26 H (19-24) mmol/L ABG O2 Saturation 98.6 H (94-97) % Sodium (137-145) mmol/L Potassium (3.5-5.1) mmol/L BUN (7-17) mg/dL Glucose (74-99) mg/dL POC Glucose (mg/dL) 156 H 162 H (70-110) mg/dL Calcium (8.4-10.2) mg/dL TIBC (228-460) UG/DL Transferrin (204.0-354.0) mg/dL Ferritin (10.0-291.0) ng/mL Creatine Kinase (30-135) U/L Triglycerides (0.00-149.00) mg/dL Vitamin B12 (200.0-944.0) pg/mL Crossmatch 04/05/23 04/05/23 04/05/23 Range/Units 06:02 07:13 09:15 WBC (3.8-10.6) k/uL RBC (3.80-5.40) m/uL Hgb (11.4-16.0) gm/dL Hct (34.0-46.0) % Neutrophils # (Manual) (1.3-7.7) k/uL Metamyelocytes # (Man) (0) k/uL ABG pH (7.35-7.45) ABG pO2 (83-108) mmHg ABG Total CO2 (19-24) mmol/L ABG O2 Saturation (94-97) % Sodium (137-145) mmol/L Potassium (3.5-5.1) mmol/L BUN (7-17) mg/dL Glucose (74-99) mg/dL POC Glucose (mg/dL) 173 H 155 H 141 H (70-110) mg/dL Calcium (8.4-10.2) mg/dL TIBC (228-460) UG/DL Transferrin (204.0-354.0) mg/dL Ferritin (10.0-291.0) ng/mL Creatine Kinase (30-135) U/L Triglycerides (0.00-149.00) mg/dL Vitamin B12 (200.0-944.0) pg/mL Crossmatch 04/05/23 04/05/23 Range/Units 10:05 12:16 WBC (3.8-10.6) k/uL RBC (3.80-5.40) m/uL Hgb (11.4-16.0) gm/dL Hct (34.0-46.0) % Neutrophils # (Manual) (1.3-7.7) k/uL Metamyelocytes # (Man) (0) k/uL ABG pH (7.35-7.45) ABG pO2 (83-108) mmHg ABG Total CO2 (19-24) mmol/L ABG O2 Saturation (94-97) % Sodium (137-145) mmol/L Potassium (3.5-5.1) mmol/L BUN (7-17) mg/dL Glucose (74-99) mg/dL POC Glucose (mg/dL) 147 H 132 H (70-110) mg/dL Calcium (8.4-10.2) mg/dL TIBC (228-460) UG/DL Transferrin (204.0-354.0) mg/dL Ferritin (10.0-291.0) ng/mL Creatine Kinase (30-135) U/L Triglycerides (0.00-149.00) mg/dL Vitamin B12 (200.0-944.0) pg/mL Crossmatch
[2023-04-05 13:06] LABS: HGB 8.5 gm/dL (11.4-16.0)
[2023-04-05] MEDS: POTASSIUM CHLORIDE 20 MEQ in WATER FOR INJECTION 1 100ML.BAG IVPB SCH ×4 (13:49→21:55)
[2023-04-05 13:54] LABS: Band Neutrophils % 7 %; Eosinophils # (M) 0.57 k/uL (0-0.7); Metamyelocytes # (M) 0.57 k/uL (0); Metamyelocytes % 3 %; Monocytes # (M) 0.19 k/uL (0-1.0); Myelocytes # (M) 0.57 k/uL (0); Myelocytes % 3 %; Neutrophils % (M) 75 %; Nucleated Red Blood Cells 1 /100 WBC (0-0); Total Cells Counted 200; WBC 18.9 k/uL (3.8-10.6)
[2023-04-05 13:55] LABS: Polychromasia Present
[2023-04-05 14:00] LABS: Glucose,Whole Blood 122 mg/dL (70-110)
[2023-04-05] MEDS ORDERED: MVI, ADULT NO.4 WITH VIT K 10 ML, TRACE (CONC-1ML/DOSE) 1 ML in AMINO ACID 5%-D15W+LYTE... IV ONE ×3 (15:00)
[2023-04-05 15:23] LABS: Glucose,Whole Blood 131 mg/dL (70-110)
[2023-04-05 16:24] LABS: Glucose,Whole Blood 100 mg/dL (70-110)
[2023-04-05 17:12] LABS: Glucose,Whole Blood 155 mg/dL (70-110)
[2023-04-05 18:32] LABS: Glucose,Whole Blood 147 mg/dL (70-110)
[2023-04-05 21:14] LABS: Glucose,Whole Blood 126 mg/dL (70-110)
[2023-04-05 21:47] LABS: Glucose,Whole Blood 123 mg/dL (70-110)
[2023-04-05] MEDS: NOREPINEPHRINE 32 MG in SODIUM CHLORIDE 0.9% 218 ML IV SCH (21:59)
[2023-04-05] MEDS: VASOPRESSIN 60 UNIT in SODIUM CHLORIDE 0.9% 150 ML IV SCH (22:34)
[2023-04-05 22:41] LABS: Glucose,Whole Blood 129 mg/dL (70-110)
[2023-04-06] MEDS: PIPERACILLIN-TAZOBACTAM 3.375 GM in SODIUM CHLORIDE 0.9% 100 ML IVPB SCH ×4 (00:04→23:42)
[2023-04-06] MEDS: FUROSEMIDE 10 MG/ML 4 ML VIAL IV SCH ×3 (00:04→21:00)
[2023-04-06] MEDS: HEPARIN SODIUM,PORCINE/PF 5,000 UNIT/0.5 ML SYRINGE SQ SCH ×2 (00:04→08:55)
[2023-04-06] MEDS: METOCLOPRAMIDE 5 MG/ML 2 ML VIAL IVP SCH ×5 (00:04→23:25)
[2023-04-06 00:53] LABS: Glucose,Whole Blood 167 mg/dL (70-110)
[2023-04-06] MEDS: POTASSIUM CHLORIDE 10 MEQ in WATER FOR INJECTION 1 100ML.BAG IVPB SCH ×4 (02:09→10:29)
[2023-04-06 02:32] LABS: Glucose,Whole Blood 149 mg/dL (70-110)
[2023-04-06] MEDS: IPRATROPIUM-ALBUTEROL 3 ML NEB INHALATION SCH ×6 (02:41→23:48)
[2023-04-06 04:10] LABS: Ionized Calcium 4.6 mg/dL (4.5-5.3)
[2023-04-06 04:21] LABS: African American GFR (CKD) 77 (>60 ml/min/1.73 sqM); Albumin 2.2 g/dL (3.5-5.0); Anion Gap 6 mmol/L; Blood Urea Nitrogen 26 mg/dL (7-17); Calcium 7.7 mg/dL (8.4-10.2); Carbon Dioxide 27 mmol/L (22-30); Chloride 103 mmol/L (98-107); Glucose 159 mg/dL (74-99); HCT 25.8 % (34.0-46.0); HGB 8.9 gm/dL (11.4-16.0); MCH 33.4 pg (25.0-35.0); MCHC 34.4 g/dL (31.0-37.0); MCV 97.3 fL (80.0-100.0); Magnesium 2.1 mg/dL (1.6-2.3); Mean Platelet Volume 8.6; Non-African American GFR(CKD) 66 (>60 ml/min/1.73 sqM); Phosphorus 2.4 mg/dL (2.5-4.5); Platelet Count 310 k/uL (150-450); Poikilocytosis Slight; Potassium 3.7 mmol/L (3.5-5.1); RBC 2.66 m/uL (3.80-5.40); RDW 15.8 % (11.5-15.5); Sodium 136 mmol/L (137-145); WBC 18.4 k/uL (3.8-10.6)
[2023-04-06 04:46] LABS: Band Neutrophils % 17 %; Lymphocytes # (M) 2.21 k/uL (1.0-4.8); Metamyelocytes # (M) 0.55 k/uL (0); Metamyelocytes % 3 %; Monocytes # (M) 0.55 k/uL (0-1.0); Neutrophils % (M) 65 %; Nucleated Red Blood Cells 0 /100 WBC (0-0); Total Cells Counted 200
[2023-04-06 04:47] LABS: Anisocytosis (M) Present; Polychromasia Present
[2023-04-06 04:53] LABS: ABG Base Excess 5.8 mmol/L; ABG HCO3 29 mmol/L (21-25); ABG Oxygen Saturation 96.2 % (94-97); ABG PCO2 36 mmHg (35-45); ABG PH 7.51 (7.35-7.45); ABG PO2 74 mmHg (83-108); ABG TCO2 30 mmol/L (19-24)
[2023-04-06 04:56] LABS: Allen Test Performed? no
[2023-04-06 06:32] LABS: Glucose,Whole Blood 139 mg/dL (70-110)
--- NOTE | 2023-04-06 07:49 | XR ---
EXAMINATION TYPE: XR chest 1V portable DATE OF EXAM: 04/06/2023 Comparison: 04/05/2023 Clinical History: 73-year-old female ICU follow-up, assess lungs Findings: Heart borderline in size. Satisfactory ET and NG tubes though somewhat limited assessment due to mult iple overlying leads. Right IJ CVC tip remains within the right atrium. Posterior midline skin trinh and partially visualized thoracolumbar posterior spinal fusion hardwar e. Bilateral airspace disease persists. Possibly minimally less confluent at the inferior lingula. Impression: Ongoing diffuse bilateral airspace disease. Possibly slightly less confluent at the inferior lingula.
[2023-04-06 08:32] LABS: Glucose,Whole Blood 159 mg/dL (70-110)
--- NOTE | 2023-04-06 08:53 | P.PN ---
Subjective Progress Note Date: 04/06/23 Respiratory failure. Patient is a 72-year-old female with past medical history significant for chronic back pain and lumbar radiculopathy, diabetes mellitus type 2, hyperlipidemia, hypertension. Patient has been complaining of lumbar radiculopathy like symptoms earlier this year, and was evaluated by Dr. Duong. She was found to have multilevel spondylosis and spondylolisthesis. She underwent an elective T10 to pelvis decompression and fusion . The initial surgery was done on 03/21/2023. Subsequently, the patient continued to have CSF leak following a complex he 10 decompression fusion and the patient underwent a ureteral repair with a patch graft. This was done on 03/29/2023. On today's evaluation of 04/03/2023, the patient remains intubated on a mechanical ventilator. The patient has been intubated since 03/29/2023. She has an acute hypoxic respiratory failure/bilateral pneumonia/ARDS in addition to hypotension/sepsis. She remains on mechanical ventilator and the splinter assist-control mode rate of 32, tidal volume 400, FiO2 of 60% with a PEEP of 15. Peak airway pressure is 38. They static airway pressure is 34. The chest x- ray from today shows diffuse bilateral pulmonary infiltrates. The patient has a triple-lumen catheter in her right IJ. ET tube seems to be high in the trachea. No evidence of any pleural effusion and there is diffuse consolidation. There is hardware also involving the thoracolumbar spine. At the same time, the patient has a pH of 7.21 with a pCO2 of 43 and pO2 of 89. She is currently sedated and she is on propofol running at 50 mcg/kg/m and fentanyl running at 2 mcg/kg/h the patient is also on paralytics and she is on Nimbex at 3 mcg/kg/m. IV fluids running at KVO. Cardiac rhythm is sinus and the patient remains on amiodarone drip at 0.5 mg/m maintenance. The patient is fully sedated and paralyzed this point in time. IV fluids are at 20 mL an hour and the patient remains on pressors. She is on physiologic dose of vasopressin at 0.04 units an hour and the patient is also on norepinephrine running at 0.08 mcg/kg/m. She has an arterial line in the right brachial. She has a triple-lumen catheter in the right IJ. In terms of her blood work, the patient has a white cell count of 17 with a hemoglobin of 8.3 and a platelet count of 212. Sodium is at 134, potassium is at 4.2, bicarb is at 17, BUN is at 19 with a creatinine of 0.8. Her microbiology from the sputum indicated presence of Enterobacter and Klebsiella. The patient is currently covered with antibiotics and she is on IV cefepime. She is also on vancomycin. The most recent vancomycin trough from yesterday was 15. Urine output is in order of 50 mL an hour and overall fluid balance over the past 24 hours has been +700 mL. The patient has been ess entially in a positive fluid balance over the past several days. The patient is on enteral feeding for nutritional support and currently she is on hold as the patient is having higher residuals. Most recent CT angiogram of the chest that was done on 04/02/2023 showed multifocal groundglass pulmonary opacities and bibasilar consolidation consistent with pneumonia and there is also small pleural effusions and postsurgical changes involving the spine. CAT scan of the abdomen and pelvis was also done on 04/02/2023 and was consistent with ileus. No evidence of any perforation. No evidence of any mechanical obstruction as the patient did not have any focal transition point and contrast was de monstrated throughout the bowel extending to sigmoid colon. There is evidence of sigmoid diverticulosis without evidence of diverticulitis. There is diffuse anasarca. Echo of the heart was done on 03/29/2023 showed normal LV with an ejection fraction of 6065%, there is mild to moderate pulmonary hypertension with mild tricuspid regurgitation. 04/04/2023, the patient remains intubated on a mechanical ventilator. She is currently off paralytics and she is sedated with propofol which is running at a dose of 45 V per kilogram per minute and she is also on fentanyl running at 1.5 mcg/kg/h. The patient is quite seclusive mechanical ventilator. Chest x-ray still showing diffuse bilateral pulmonary infiltrates consistent with pneumonia/ARDS. Nevertheless, there is interval improvement in oxygenation. Today, the patient is on assist-control mode at the rate of 32, tidal volume of 400, FiO2 of 50% with a PEEP of 12. The blood gas that was done on this current setting shows a pH of 7.31 with a pCO2 42 and pO2 of 186. As such, there is improvement in the oxygenation. The peak airway pressure is currently at 30. The static airway pressure is currently at 24. The patient remains on pressors although at a lower dose. Vasopressin is physiologic at 0.04 units an minutes and the patient is also on norepinephrine at 0.01 g hospital kilogram per minutes. The patient remains on amiodarone drip throughout the night and currently her rhythm is sinus and amiodarone drip was discontinued this morning. Feeding was held yesterday because of increased residuals. She does have a com ponent of ileus. She remains on Reglan. NG tube output is 3 50 mL overnight the patient was also started on methyl naltrexone 12 mg for bowel motility. The rest of the blood work shows a white cell count of 15 with a hemoglobin of 7.8 and a platelet count of 183. The sodium is at 131, BUN is at 20 with a creatinine of 0.7. Serum bicarb is up to 20. IV fluids are as a former bicarb infusion rate of 75 mL an hour. She was started on insulin drip for blood sugar control as the patient's blood sugar was quite elevated while being on systemic steroids. She remains on IV Zosyn. No other significant events overnight. Overall fluid balance over the past 24 hours has been in the order of -143 mL and the patient is receiving Lasix at a dose of 20 mg every 12 hours. 04/05/2023, the patient is being seen for a follow-up. She remains intubated on a mechanical ventilator. She is off paralytics and she is on a combination of propofol and fentanyl. Propofol is running at 45 maximum hospital kilogram per minute and fentanyl is running at 1 mcg/kg/h. The patient is on assist-control mode of mechanical ventilation at the rate of 32, tidal volume of 400, FiO2 of 40% with a PEEP of 10. Blood gas from today shows a pH of 7.46 with a pCO2 of 36 and pO2 of 115 and there is progressive improvement in the patient's oxygenation. The chest x-ray from today shows diffuse bilateral pulmonary infiltrates and bilateral pleural effusions slightly worse on the left. Orotracheal tube is in a good location. No evidence of any pneumothorax. No other major abnormalities. The patient is a triple-lumen catheter in her right internal jugular vein. Hemodynamically, the patient is off pressors. This was discontinued yesterday. The patient is currently on IV Lasix. She is producing good urine output and she is still and a positive fluid balance over the past 24 hours. She is currently on Lasix at a dose of 40 mg IV every 12 hours. She is also on a bicarb infusion as the patient is a component of melena negative metabolic acidosis. Serum bicarb is improved and the serum bicarbs up to 24 and a bicarb infusion will be discontinued today. Renal function is stable. The patient had a drop in hemoglobin down to 6.9 at today's evaluation. The white cell count at 17.2. Platelet counts are 226. Overall serum iron is at 53. The patient remains on bronchodilators, systemic steroids and IV Solu-Medrol 40 mg every 12 hours. She is on insulin drip which is running at 5 units an hour and the patient is covered with IV Zosyn regarding kilogram negative pneumonia. Another active issue is her ongoing difficulties with ileus and absent bowel movement activity. The patient has persistent air distention of the colon based on the most recent 5, the abdomen was as yesterday and there is slight improvement compared to the earlier films with the cecum now distended up to 8.1 cm compared to 9.1 cm. The angina output is in order of 500 mL overnight and the patient remains nothing by mouth for now. 04/06/2023 the patient is being seen for a follow-up. The patient is sedated on a combination of propofol and fentanyl. Propofol is at 40 mcg/kg/m and fentanyl still running at 1 mcg/kg/h. She is off paralytics. This morning, she was also taken off the pressors. Chest x-ray still showing diffuse but the pulmonary infiltrates/ARDS. Nevertheless, there has been improvement in oxygenation. The PEEP was gradually weaned down to 8 and the patient remains in respiratory rate of 32, tidal volume of 400 with an FiO2 of 40%. A chest x-ray is showing stable bilateral pulmonary infiltrates. The blood gas from today shows a pH of 7.51 with a pCO2 of 36 and pO2 of 74. The patient is being diuresed with IV Lasix 40 mg every 8 hours. The fluid balance is negative at least 5.1 L over the past 24 hours. The edema has improved both in the upper and lower extremity speech is producing adequate urine output. Note that she also started stooling. She had small bowel movements yesterday total of 3. We were having difficulties in treating this patient and she was started on TPN for nutritional support. She is also on insulin drip at 4 units an hour for blood sugar control. The white cell cause of 18.4 with a hemoglobin of 8.9. Platelet count is at 310. The BUN is at 26 with a creatinine of 0.8 and a sodium level is at 136. Potassium levels at 3.7 and we are chasing and replacing the potassium supplements. The peak airway pressure is down to 27. No other significant events overnight. She remains on IV Zosyn. She remains on steroids. Her cardiac rhythm is sinus and she is on oral amiodarone. Objective - Vital Signs Vital signs: Vital Signs Temp 98.3 F 04/06/23 04:00 Pulse 68 04/06/23 08:15 Resp 32 H 04/06/23 08:00 BP 120/47 04/05/23 09:06 Pulse Ox 100 04/06/23 08:00 FiO2 40 04/06/23 07:55 Intake & Output 04/05/23 04/06/23 04/06/23 18:59 06:59 18:59 Intake Total 1805.595 512.418 13 Output Total 2950 4490 200 Balance -1144.405 -3977.582 -187 Weight 108.5 kg 127.4 kg Intake: IV 196 143 13 0.9NS 60 110 10 0.9NS Pressure Bag 36 33 3 Piperacillin-Tazobactam 3 100 .375 gm In Sodium Chloride 0.9% 100 ml @ 25 mls/hr IVPB Q8HR [facility] Rx# :[id number] Intake, IV Titration 1299.595 369.418 Amount Dextrose 5% in Water 1, 150 000 ml @ 75 mls/hr IV . [id number] [facility] with Sodium Bicarb (1 Meq/ml) 150 ml Rx#:[id number] Insulin Regular 100 unit 46.207 41.731 In Sodium Chloride 0.9% 100 ml @ Per Protocol IV .Q0M [facility] Rx#:[id number] Magnesium Sulfate-D5w Pmx 200 1 gm In Dextrose/Water 1 100ml.bag @ 100 mls/hr IVPB Q1H [facility] Rx#: [id number] Mvi, Adult No.4 with Vit 60 30 K 10 ml Trace (Conc-1Ml/ Dose) 1 ml In Amino Acid 5%-D15w+Lytes*E* 1,000 ml @ 30 mls/hr IV .Q24H [facility] Rx#:[id number] Mvi, Adult No.4 with Vit 30 K 10 ml Trace (Conc-1Ml/ Dose) 1 ml In Amino Acid 5%-D15w+Lytes*E* 1,000 ml @ 45 mls/hr IV .[id number] [facility] Rx#:[id number] Norepinephrine 32 mg In 0 Sodium Chloride 0.9% 218 ml @ 0.03 MCG/KG/MIN 1. 364 mls/hr IV .Q24H [facility] Rx#:[id number] Potassium Chloride 10 meq 300 In Water For Injection 1 100ml.bag @ 100 mls/hr IVPB Q1HR [facility] Rx#: [id number] Potassium Chloride 20 meq 200 In Water For Injection 1 100ml.bag @ 50 mls/hr IVPB Q2H [facility] Rx#: [id number] Vasopressin 60 unit In 17.213 Sodium Chloride 0.9% 150 ml @ 0.04 UNITS/MIN 6.12 mls/hr IV .Q24H [facility] Rx#: [id number] fentaNYL (PF). 1,000 mcg 49.227 95.061 In Sodium Chloride 0.9% 80 ml @ 0.5 MCG/KG/HR 5. 12 mls/hr IV .[id number] [facility] Rx#:[id number] propofoL 1,000 mg In 246.948 202.626 Empty Bag 1 bag @ 15 MCG/ KG/MIN 8.73 mls/hr IV . [id number] [facility] Rx#:[id number] Blood Product 310 Rc As-1 Unit 310 [id number] Output: Gastric Drainage 600 Urine 2350 4490 200 Other: Voiding Method Indwelling Catheter Indwelling Catheter # Bowel Movements 1 ABP, PAP, CO, CI - Last Documented Arterial Blood Pressure 141/58 - Exam No acute distress, sedated, intubated, on a mechanical ventilator and the patient is also sedated She senses the mechanical ventilator. The patient has an orotracheal and orogastric tube both in place. The patient a triple lumen catheter in the right IJ. Head exam was generally normal. There was no scleral icterus or corneal arcus. Mucous membranes were moist. HEENT examination is grossly unremarkable. The patient has a triple-lumen catheter in the right IJ Neck supple. Full range of motion. No adenopathy thyromegaly or neck vein distention. Cardiovascular examination reveals regular rhythm rate. S1-S2 normal. No S3 or S4. No discernible murmur noted. Lungs reveal scattered bilateral rhonchi. Breath sounds equal. Abdomen soft without bowel sounds. The bowel sounds are quite diminished and absent and the patient diffuse abdominal wall edema. No direct tenderness, no rebound tenderness, no guarding Extremities are intact. No cyanosis clubbing and there is diffuse anasarca and edema in all 4 extremities and the patient has a right brachial triple-lumen catheter. The patient is diminished pulses in all 4 extremities. Skin is without rash or lesion. The surgical wound is dry clean and intact Neurologic examination cannot be assessed at this time. - Labs CBC & Chem 7: 04/06/23 03:35 04/06/23 03:35 Labs: Abnormal Lab Results - Last 24 Hours (Table) 04/02/23 04/05/23 04/05/23 Range/Units 11:42 04:00 09:15 WBC (3.8-10.6) k/uL RBC (3.80-5.40) m/uL Hgb (11.4-16.0) gm/dL Hct (34.0-46.0) % RDW (11.5-15.5) % Neutrophils # (Manual) (1.3-7.7) k/uL Metamyelocytes # (Man) (0) k/uL Myelocytes # (Manual) (0) k/uL Nucleated RBCs (0-0) /100 WBC ABG pH (7.35-7.45) ABG pO2 (83-108) mmHg ABG HCO3 (21-25) mmol/L ABG Total CO2 (19-24) mmol/L Sodium (137-145) mmol/L BUN (7-17) mg/dL Glucose (74-99) mg/dL POC Glucose (mg/dL) 141 H (70-110) mg/dL Calcium (8.4-10.2) mg/dL Phosphorus (2.5-4.5) mg/dL TIBC 202 L (228-460) UG/DL Transferrin 144.0 L (204.0-354.0) mg/dL Ferritin 1306.0 H (10.0-291.0) ng/mL Albumin (3.5-5.0) g/dL Triglycerides 417.00 H (0.00-149.00) mg/dL Vitamin B12 >3600.0 H (200.0-944.0) pg/mL Crossmatch See Detail 04/05/23 04/05/23 04/05/23 Range/Units 10:05 12:16 12:19 WBC 18.9 H (3.8-10.6) k/uL RBC 2.54 L (3.80-5.40) m/uL Hgb 8.5 L D (11.4-16.0) gm/dL Hct 24.4 L (34.0-46.0) % RDW (11.5-15.5) % Neutrophils # (Manual) 15.40 H (1.3-7.7) k/uL Metamyelocytes # (Man) 0.57 H (0) k/uL Myelocytes # (Manual) 0.57 H (0) k/uL Nucleated RBCs 1 H (0-0) /100 WBC ABG pH (7.35-7.45) ABG pO2 (83-108) mmHg ABG HCO3 (21-25) mmol/L ABG Total CO2 (19-24) mmol/L Sodium (137-145) mmol/L BUN (7-17) mg/dL Glucose (74-99) mg/dL POC Glucose (mg/dL) 147 H 132 H (70-110) mg/dL Calcium (8.4-10.2) mg/dL Phosphorus (2.5-4.5) mg/dL TIBC (228-460) UG/DL Transferrin (204.0-354.0) mg/dL Ferritin (10.0-291.0) ng/mL Albumin (3.5-5.0) g/dL Triglycerides (0.00-149.00) mg/dL Vitamin B12 (200.0-944.0) pg/mL Crossmatch 04/05/23 04/05/23 04/05/23 Range/Units 13:58 15:21 17:10 WBC (3.8-10.6) k/uL RBC (3.80-5.40) m/uL Hgb (11.4-16.0) gm/dL Hct (34.0-46.0) % RDW (11.5-15.5) % Neutrophils # (Manual) (1.3-7.7) k/uL Metamyelocytes # (Man) (0) k/uL Myelocytes # (Manual) (0) k/uL Nucleated RBCs (0-0) /100 WBC ABG pH (7.35-7.45) ABG pO2 (83-108) mmHg ABG HCO3 (21-25) mmol/L ABG Total CO2 (19-24) mmol/L Sodium (137-145) mmol/L BUN (7-17) mg/dL Glucose (74-99) mg/dL POC Glucose (mg/dL) 122 H 131 H 155 H (70-110) mg/dL Calcium (8.4-10.2) mg/dL Phosphorus (2.5-4.5) mg/dL TIBC (228-460) UG/DL Transferrin (204.0-354.0) mg/dL Ferritin (10.0-291.0) ng/mL Albumin (3.5-5.0) g/dL Triglycerides (0.00-149.00) mg/dL Vitamin B12 (200.0-944.0) pg/mL Crossmatch 04/05/23 04/05/23 04/05/23 Range/Units 18:31 21:13 21:45 WBC (3.8-10.6) k/uL RBC (3.80-5.40) m/uL Hgb (11.4-16.0) gm/dL Hct (34.0-46.0) % RDW (11.5-15.5) % Neutrophils # (Manual) (1.3-7.7) k/uL Metamyelocytes # (Man) (0) k/uL Myelocytes # (Manual) (0) k/uL Nucleated RBCs (0-0) /100 WBC ABG pH (7.35-7.45) ABG pO2 (83-108) mmHg ABG HCO3 (21-25) mmol/L ABG Total CO2 (19-24) mmol/L Sodium (137-145) mmol/L BUN (7-17) mg/dL Glucose (74-99) mg/dL POC Glucose (mg/dL) 147 H 126 H 123 H (70-110) mg/dL Calcium (8.4-10.2) mg/dL Phosphorus (2.5-4.5) mg/dL TIBC (228-460) UG/DL Transferrin (204.0-354.0) mg/dL Ferritin (10.0-291.0) ng/mL Albumin (3.5-5.0) g/dL Triglycerides (0.00-149.00) mg/dL Vitamin B12 (200.0-944.0) pg/mL Crossmatch 04/05/23 04/06/23 04/06/23 Range/Units 22:39 00:51 02:30 WBC (3.8-10.6) k/uL RBC (3.80-5.40) m/uL Hgb (11.4-16.0) gm/dL Hct (34.0-46.0) % RDW (11.5-15.5) % Neutrophils # (Manual) (1.3-7.7) k/uL Metamyelocytes # (Man) (0) k/uL Myelocytes # (Manual) (0) k/uL Nucleated RBCs (0-0) /100 WBC ABG pH (7.35-7.45) ABG pO2 (83-108) mmHg ABG HCO3 (21-25) mmol/L ABG Total CO2 (19-24) mmol/L Sodium (137-145) mmol/L BUN (7-17) mg/dL Glucose (74-99) mg/dL POC Glucose (mg/dL) 129 H 167 H 149 H (70-110) mg/dL Calcium (8.4-10.2) mg/dL Phosphorus (2.5-4.5) mg/dL TIBC (228-460) UG/DL Transferrin (204.0-354.0) mg/dL Ferritin (10.0-291.0) ng/mL Albumin (3.5-5.0) g/dL Triglycerides (0.00-149.00) mg/dL Vitamin B12 (200.0-944.0) pg/mL Crossmatch 04/06/23 04/06/23 04/06/23 Range/Units 03:35 03:35 04:52 WBC 18.4 H (3.8-10.6) k/uL RBC 2.66 L (3.80-5.40) m/uL Hgb 8.9 L (11.4-16.0) gm/dL Hct 25.8 L (34.0-46.0) % RDW 15.8 H (11.5-15.5) % Neutrophils # (Manual) 15.00 H (1.3-7.7) k/uL Metamyelocytes # (Man) 0.55 H (0) k/uL Myelocytes # (Manual) (0) k/uL Nucleated RBCs (0-0) /100 WBC ABG pH 7.51 H (7.35-7.45) ABG pO2 74 L (83-108) mmHg ABG HCO3 29 H (21-25) mmol/L ABG Total CO2 30 H (19-24) mmol/L Sodium 136 L (137-145) mmol/L BUN 26 H (7-17) mg/dL Glucose 159 H (74-99) mg/dL POC Glucose (mg/dL) (70-110) mg/dL Calcium 7.7 L (8.4-10.2) mg/dL Phosphorus 2.4 L (2.5-4.5) mg/dL TIBC (228-460) UG/DL Transferrin (204.0-354.0) mg/dL Ferritin (10.0-291.0) ng/mL Albumin 2.2 L (3.5-5.0) g/dL Triglycerides (0.00-149.00) mg/dL Vitamin B12 (200.0-944.0) pg/mL Crossmatch 04/06/23 04/06/23 Range/Units 06:30 08:31 WBC (3.8-10.6) k/uL RBC (3.80-5.40) m/uL Hgb (11.4-16.0) gm/dL Hct (34.0-46.0) % RDW (11.5-15.5) % Neutrophils # (Manual) (1.3-7.7) k/uL Metamyelocytes # (Man) (0) k/uL Myelocytes # (Manual) (0) k/uL Nucleated RBCs (0-0) /100 WBC ABG pH (7.35-7.45) ABG pO2 (83-108) mmHg ABG HCO3 (21-25) mmol/L ABG Total CO2 (19-24) mmol/L Sodium (137-145) mmol/L BUN (7-17) mg/dL Glucose (74-99) mg/dL POC Glucose (mg/dL) 139 H 159 H (70-110) mg/dL Calcium (8.4-10.2) mg/dL Phosphorus (2.5-4.5) mg/dL TIBC (228-460) UG/DL Transferrin (204.0-354.0) mg/dL Ferritin (10.0-291.0) ng/mL Albumin (3.5-5.0) g/dL Triglycerides (0.00-149.00) mg/dL Vitamin B12 (200.0-944.0) pg/mL Crossmatch Assessment and Plan Plan: Acute hypoxemic respiratory failure, requiring intubation and mechanical ventilation, subsequent to repair of a dural tear, secondary to a large-volume gastric aspiration. S/P intubation and mechanical ventilation, for respiratory failure, 03/29/2023. Presentation is typical of post aspiration pneumonia with secondary ARDS and the patient is currently sedated and paralyzed. The patient remains sedated on a mechanical ventilator. She is off paralytics for now. There is ongoing improvement in the patient's oxygenation. The patient's PEEP is weaned down to 8 and the patient is showing stable oxygenation. Her blood gas shows a component of respiratory alkalosis. This is in combination with metabolic alkalosis. Acute respiratory distress syndrome. Aspiration pneumonia secondary to Enterobacter and Klebsiella and the patient remains on IV Zosyn Acute Atrial fibrillation with RVR. The current cardiac rhythm is sinus and the patient remains on amiodarone maintenance. Echo cardiac exam shows a preserved LV function without any significant valvular abnormalities, cardiac rhythm remai enrrique sinus Lumbar spondylosis and spondylolisthesis, the initial surgery was done on 03/21/2023 status post postop day # 14, T10 to pelvic decompression and fusion. The patient was taken back to the operating room on 03/29/2023 for repair of a dural leak Severe hypotension, likely secondary to sepsis, currently the patient is off pressors History of lumbar radiculopathy. Type 2 diabetes mellitus. The patient is on insulin drip, currently running at 4 units an hour Benign essential hypertension. History of hyperlipidemia. Steroid-induced hyperglycemia the patient is currently on insulin drip running at 4 units an hour Ileus, started on a combination of methyl naltrexone and Reglan, some improvement in the flat abdominal film that was done yesterday although there is still some colonic distention. The patient was given an enema , the patient started stooling. Meanwhile, she is still on nothing by mouth status and the patient was started on TPN for nutritional support due to failure of feeding Anemia of chronic disease with a drop in hemoglobin down to 6.9, normal Cetamide and. No evidence of any acute bleeding. The patient will be given a unit of packed RBC. The follow-up hemoglobin is stable at 8.9. Plan: Dropped the PEEP down to 6 and dropped her respiratory rate down to 24 Dear the patient does of Diamox 500 mg IV piggyback 1 Drop the Lasix down to 40 mg every 12 hours Stop the fentanyl Wean off propofol and assess the patient's mental status Keep the patient off paralytics Continue IV Solu-Medrol Continue insulin drip for blood sugar control Continue IV Zosyn Continue TPN for nutritional support. We'll restart feedings within the next 24 hours as the patient stays intubated. The plan for today is to assess the patient's mental status. Over oxygen patient is improved. Volume status is improved. She is hemodynamically stable. I think it's worthwhile to wean off the sedation and assess the patient's mentation and readiness to wean. Conditions other significant critical continue to follow make further recommendations based on her progress. Critical care evaluation that was done in more than 30 minutes. Time with Patient: Greater than 30
[2023-04-06] MEDS: SENNOSIDES-DOCUSATE SODIUM 1 EACH TAB PO SCH ×2 (08:54→20:59)
[2023-04-06] MEDS: AMIODARONE 200 MG TAB PO SCH ×2 (08:54→20:59)
[2023-04-06] MEDS: GABAPENTIN 100 MG CAP PO SCH ×3 (08:54→21:00)
[2023-04-06] MEDS: PANTOPRAZOLE 40 MG/10 ML VIAL IV SCH (08:55)
[2023-04-06] MEDS: CHLORHEXIDINE GLUCONATE 15 ML CUP MUCOUS MEM SCH ×2 (08:56→20:59)
[2023-04-06] MEDS: polyethylene glycoL 3350 17 GM POWD.PACK PO SCH (08:57)
[2023-04-06] MEDS ORDERED: Phosphorus Replacement Protoco 1 EACH MISC MISCELLANE PRN (09:04)
[2023-04-06] MEDS: methylPREDNISolone SOD SUCCI 40 MG/ML 1 ML VIAL IV SCH ×2 (09:05→20:59)
[2023-04-06 09:09] LABS: Glucose,Whole Blood 142 mg/dL (70-110)
--- NOTE | 2023-04-06 09:22 | P.PN ---
Subjective Progress Note Date: 04/05/23 Principal diagnosis: Sepsis/pneumonia Patient is a 73-year-old female electively admitted to the hospital 03/21/2023 and this patient who is s/p extensive thoracolumbar spine surgery in this patient who is status post L2-L5 deformity correction did have a L2-S1 interbody fusion and T10-L2 posterior lateral instrumented fusion,patient did have postoperative CSF leak status post complex T10 posterior decompression fusion with dural repair postoperatively the patient did have a respiratory distress requiring intubation and admission to the ICU. On today's evaluation that is 04/05/2023, patient remains to be afebrile, patient FiO2 is stable at 40% today, no significant purulent secretions through the ET diarrhea or any other changes reported by the nursing staff, patient has been off the pressor support this morning per the nursing staff Patient did have CT angiogram of the chest that was negative for PE did shows multifocal groundglass opacities, CT abdomen and pelvis was consistent with ileus and no evidence of perforation Patient did have white count is elevated at 18,000 today and the patient did have a normal creatinine , blood cultures are negative so far sputum grew Klebsiella and Enterobacter Objective - Vital Signs Vital signs: Vital Signs Temp 98.9 F 04/05/23 09:06 Pulse 78 04/05/23 11:32 Resp 32 H 04/05/23 10:30 BP 120/47 04/05/23 09:06 Pulse Ox 98 04/05/23 10:00 FiO2 40 04/05/23 11:15 Intake & Output 04/04/23 04/05/23 04/05/23 18:59 06:59 18:59 Intake Total 761.784 678.440 Output Total 2345 1430 950 Balance -342.238 601.784 -271.560 Weight 108.5 kg 108.5 kg Intake: IV 139 143 52 0.9NS 80 110 40 0.9NS Pressure Bag 39 33 12 Lactated Ringers 1,000 ml 20 @ 20 mls/hr IV .Q24H [facility] Rx#:[id number] Intake, IV Titration 6490.684 8210.784 316.440 Amount Dextrose 5% in Water 1, 975 825 150 000 ml @ 75 mls/hr IV . [id number] [facility] with Sodium Bicarb (1 Meq/ml) 150 ml Rx#:[id number] Insulin Regular 100 unit 53.168 35.536 In Sodium Chloride 0.9% 100 ml @ Per Protocol IV .Q0M [facility] Rx#:[id number] Norepinephrine 32 mg In 10.462 Sodium Chloride 0.9% 218 ml @ 0.03 MCG/KG/MIN 1. 364 mls/hr IV .Q24H [facility] Rx#:[id number] Piperacillin-Tazobactam 3 100 .375 gm In Sodium Chloride 0.9% 100 ml @ 25 mls/hr IVPB Q8HR [facility] Rx# :[id number] Potassium Chloride 10 meq 200 In Water For Injection 1 100ml.bag @ 100 mls/hr IVPB Q1H [facility] Rx#: [id number] Potassium Chloride 10 meq 500 In Water For Injection 1 100ml.bag @ 100 mls/hr IVPB Q1H [facility] Rx#: [id number] Potassium Chloride 20 meq 100 In Water For Injection 1 100ml.bag @ 50 mls/hr IVPB Q2H [facility] Rx#: [id number] Vasopressin 60 unit In 134.232 36.363 17.213 Sodium Chloride 0.9% 150 ml @ 0.04 UNITS/MIN 6.12 mls/hr IV .Q24H [facility] Rx#: [id number] fentaNYL (PF). 1,000 mcg 111.360 97.280 49.227 In Sodium Chloride 0.9% 80 ml @ 0.5 MCG/KG/HR 5. 12 mls/hr IV .[id number] [facility] Rx#:[id number] propofoL 1,000 mg In 279.540 269.605 100 Empty Bag 1 bag @ 15 MCG/ KG/MIN 8.73 mls/hr IV . [id number] [facility] Rx#:[id number] Blood Product 0 310 Rc As-1 Unit 0 310 [id number] Other 25 Output: Gastric Drainage 400 500 Urine 1945 1430 450 Other: Voiding Method Indwelling Catheter Indwelling Catheter ABP, PAP, CO, CI - Last Documented Arterial Blood Pressure 129/48 - Exam GENERAL DESCRIPTION: An elderly female intubated on the vent RESPIRATORY SYSTEM: Unlabored breathing , decreased breath sounds at bases HEART: S1 S2 regular rate and rhythm , ABDOMEN: Soft , no tenderness EXTREMITIES: Bilateral lower extremity swelling no redness - Labs CBC & Chem 7: 04/06/23 03:35 04/06/23 03:35 Labs: Abnormal Lab Results - Last 24 Hours (Table) 04/02/23 04/04/23 04/04/23 Range/Units 11:42 11:59 14:22 WBC (3.8-10.6) k/uL RBC (3.80-5.40) m/uL Hgb (11.4-16.0) gm/dL Hct (34.0-46.0) % Neutrophils # (Manual) (1.3-7.7) k/uL Metamyelocytes # (Man) (0) k/uL ABG pH (7.35-7.45) ABG pO2 (83-108) mmHg ABG Total CO2 (19-24) mmol/L ABG O2 Saturation (94-97) % Sodium (137-145) mmol/L Potassium (3.5-5.1) mmol/L BUN (7-17) mg/dL Glucose (74-99) mg/dL POC Glucose (mg/dL) 140 H 135 H (70-110) mg/dL Calcium (8.4-10.2) mg/dL TIBC (228-460) UG/DL Transferrin (204.0-354.0) mg/dL Ferritin (10.0-291.0) ng/mL Creatine Kinase (30-135) U/L Triglycerides (0.00-149.00) mg/dL Vitamin B12 (200.0-944.0) pg/mL Crossmatch See Detail 04/04/23 04/04/23 04/04/23 Range/Units 16:03 17:58 18:48 WBC (3.8-10.6) k/uL RBC (3.80-5.40) m/uL Hgb (11.4-16.0) gm/dL Hct (34.0-46.0) % Neutrophils # (Manual) (1.3-7.7) k/uL Metamyelocytes # (Man) (0) k/uL ABG pH (7.35-7.45) ABG pO2 (83-108) mmHg ABG Total CO2 (19-24) mmol/L ABG O2 Saturation (94-97) % Sodium (137-145) mmol/L Potassium (3.5-5.1) mmol/L BUN (7-17) mg/dL Glucose (74-99) mg/dL POC Glucose (mg/dL) 116 H 129 H 147 H (70-110) mg/dL Calcium (8.4-10.2) mg/dL TIBC (228-460) UG/DL Transferrin (204.0-354.0) mg/dL Ferritin (10.0-291.0) ng/mL Creatine Kinase (30-135) U/L Triglycerides (0.00-149.00) mg/dL Vitamin B12 (200.0-944.0) pg/mL Crossmatch 04/04/23 04/04/23 04/04/23 Range/Units 18:52 19:48 19:49 WBC (3.8-10.6) k/uL RBC (3.80-5.40) m/uL Hgb (11.4-16.0) gm/dL Hct (34.0-46.0) % Neutrophils # (Manual) (1.3-7.7) k/uL Metamyelocytes # (Man) (0) k/uL ABG pH (7.35-7.45) ABG pO2 (83-108) mmHg ABG Total CO2 (19-24) mmol/L ABG O2 Saturation (94-97) % Sodium (137-145) mmol/L Potassium 3.4 L (3.5-5.1) mmol/L BUN (7-17) mg/dL Glucose (74-99) mg/dL POC Glucose (mg/dL) 32 L 130 H (70-110) mg/dL Calcium (8.4-10.2) mg/dL TIBC (228-460) UG/DL Transferrin (204.0-354.0) mg/dL Ferritin (10.0-291.0) ng/mL Creatine Kinase (30-135) U/L Triglycerides (0.00-149.00) mg/dL Vitamin B12 (200.0-944.0) pg/mL Crossmatch 04/04/23 04/04/23 04/05/23 Range/Units 21:44 23:32 00:16 WBC (3.8-10.6) k/uL RBC (3.80-5.40) m/uL Hgb (11.4-16.0) gm/dL Hct (34.0-46.0) % Neutrophils # (Manual) (1.3-7.7) k/uL Metamyelocytes # (Man) (0) k/uL ABG pH (7.35-7.45) ABG pO2 (83-108) mmHg ABG Total CO2 (19-24) mmol/L ABG O2 Saturation (94-97) % Sodium (137-145) mmol/L Potassium (3.5-5.1) mmol/L BUN (7-17) mg/dL Glucose (74-99) mg/dL POC Glucose (mg/dL) 131 H 135 H 126 H (70-110) mg/dL Calcium (8.4-10.2) mg/dL TIBC (228-460) UG/DL Transferrin (204.0-354.0) mg/dL Ferritin (10.0-291.0) ng/mL Creatine Kinase (30-135) U/L Triglycerides (0.00-149.00) mg/dL Vitamin B12 (200.0-944.0) pg/mL Crossmatch 04/05/23 04/05/23 04/05/23 Range/Units 01:47 03:51 04:00 WBC 17.2 H (3.8-10.6) k/uL RBC 2.05 L (3.80-5.40) m/uL Hgb 6.9 L* (11.4-16.0) gm/dL Hct 20.2 L (34.0-46.0) % Neutrophils # (Manual) 15.30 H (1.3-7.7) k/uL Metamyelocytes # (Man) 0.34 H (0) k/uL ABG pH (7.35-7.45) ABG pO2 (83-108) mmHg ABG Total CO2 (19-24) mmol/L ABG O2 Saturation (94-97) % Sodium (137-145) mmol/L Potassium (3.5-5.1) mmol/L BUN (7-17) mg/dL Glucose (74-99) mg/dL POC Glucose (mg/dL) 133 H 147 H (70-110) mg/dL Calcium (8.4-10.2) mg/dL TIBC (228-460) UG/DL Transferrin (204.0-354.0) mg/dL Ferritin (10.0-291.0) ng/mL Creatine Kinase (30-135) U/L Triglycerides (0.00-149.00) mg/dL Vitamin B12 (200.0-944.0) pg/mL Crossmatch 04/05/23 04/05/23 04/05/23 Range/Units 04:00 04:38 05:17 WBC (3.8-10.6) k/uL RBC (3.80-5.40) m/uL Hgb (11.4-16.0) gm/dL Hct (34.0-46.0) % Neutrophils # (Manual) (1.3-7.7) k/uL Metamyelocytes # (Man) (0) k/uL ABG pH (7.35-7.45) ABG pO2 (83-108) mmHg ABG Total CO2 (19-24) mmol/L ABG O2 Saturation (94-97) % Sodium 130 L (137-145) mmol/L Potassium (3.5-5.1) mmol/L BUN 23 H (7-17) mg/dL Glucose 140 H (74-99) mg/dL POC Glucose (mg/dL) 156 H 162 H (70-110) mg/dL Calcium 7.2 L (8.4-10.2) mg/dL TIBC 202 L (228-460) UG/DL Transferrin 144.0 L (204.0-354.0) mg/dL Ferritin 1306.0 H (10.0-291.0) ng/mL Creatine Kinase 237 H (30-135) U/L Triglycerides 417.00 H (0.00-149.00) mg/dL Vitamin B12 >3600.0 H (200.0-944.0) pg/mL Crossmatch 04/05/23 04/05/23 04/05/23 Range/Units 05:31 06:02 07:13 WBC (3.8-10.6) k/uL RBC (3.80-5.40) m/uL Hgb (11.4-16.0) gm/dL Hct (34.0-46.0) % Neutrophils # (Manual) (1.3-7.7) k/uL Metamyelocytes # (Man) (0) k/uL ABG pH 7.46 H (7.35-7.45) ABG pO2 115 H (83-108) mmHg ABG Total CO2 26 H (19-24) mmol/L ABG O2 Saturation 98.6 H (94-97) % Sodium (137-145) mmol/L Potassium (3.5-5.1) mmol/L BUN (7-17) mg/dL Glucose (74-99) mg/dL POC Glucose (mg/dL) 173 H 155 H (70-110) mg/dL Calcium (8.4-10.2) mg/dL TIBC (228-460) UG/DL Transferrin (204.0-354.0) mg/dL Ferritin (10.0-291.0) ng/mL Creatine Kinase (30-135) U/L Triglycerides (0.00-149.00) mg/dL Vitamin B12 (200.0-944.0) pg/mL Crossmatch 04/05/23 04/05/23 Range/Units 09:15 10:05 WBC (3.8-10.6) k/uL RBC (3.80-5.40) m/uL Hgb (11.4-16.0) gm/dL Hct (34.0-46.0) % Neutrophils # (Manual) (1.3-7.7) k/uL Metamyelocytes # (Man) (0) k/uL ABG pH (7.35-7.45) ABG pO2 (83-108) mmHg ABG Total CO2 (19-24) mmol/L ABG O2 Saturation (94-97) % Sodium (137-145) mmol/L Potassium (3.5-5.1) mmol/L BUN (7-17) mg/dL Glucose (74-99) mg/dL POC Glucose (mg/dL) 141 H 147 H (70-110) mg/dL Calcium (8.4-10.2) mg/dL TIBC (228-460) UG/DL Transferrin (204.0-354.0) mg/dL Ferritin (10.0-291.0) ng/mL Creatine Kinase (30-135) U/L Triglycerides (0.00-149.00) mg/dL Vitamin B12 (200.0-944.0) pg/mL Crossmatch Assessment and Plan (1) Sepsis Current Visit: Yes Status: Acute Code(s): A41.9 - SEPSIS, UNSPECIFIED ORGANISM SNOMED Code(s): 33943571 (2) Gram-negative pneumonia Current Visit: Yes Status: Acute Code(s): J15.6 - PNEUMONIA DUE TO OTHER G JASON-NEGATIVE BACTERIA SNOMED Code(s): 052435214 (3) Leukocytosis Current Visit: Yes Status: Acute Code(s): D72.829 - ELEVATED WHITE BLOOD CELL COUNT, UNSPECIFIED SNOMED Code(s): 479947822 Plan: 1patient with a sepsis/septic shock in this patient with fever elevated white count hypertension tachycardia is source likely aspiration pneumonia likely gram-negative with a sputum currently growing Klebsiella and Enterobacter with some resistant pattern, patient did have a CSF leak and did have extensive T10- S1 spine surgery underlying meningitis less likely but not entirely excluded 2-patient fever pattern has improved and the patient white count is trending up more likely steroid related 3-With the clinical picture mostly of ileus as well as pneumonia possible aspiration patient is currently being treated with Zosyn and monitor clinical course closely Dictation was produced using [employer] dictation software. please excuse any grammatical, word or spelling errors. Time with Patient: Less than 30
[2023-04-06] MEDS: ARTIFICIAL TEARS-HYPROMELLOSE DROPS 15 ML BTL BOTH EYES SCH ×4 (09:28→23:26)
[2023-04-06] MEDS ORDERED: SODIUM PHOSPHATE 15 MMOL in DEXTROSE 5% IN WATER 250 ML IVPB ONE ×2 (10:00)
[2023-04-06 10:08] LABS: Glucose,Whole Blood 125 mg/dL (70-110)
[2023-04-06] MEDS: LACTATED RINGERS 1,000 ML IV SCH (10:29)
[2023-04-06] MEDS: bisacodyL 10 MG SUPP RECTAL SCH (10:29)
--- NOTE | 2023-04-06 10:38 | P.PN ---
Subjective Progress Note Date: 04/06/23 Principal diagnosis: 1. L1-S1 spondylosis with stenosis 2. L1-S1 spondylolisthesis 3. Lower extremity radiculopathy 4. Low back pain 5. Lower extremity weakness Patient seen and examined this morning. Patient is currently sedated on mechanical ventilation. Patient was turned this morning to change her surgical dressing and she was attempting to open her eyes. Current vitals: Temp 98.5, BP 136/52, HR 68, Resp 33, O2 sat 98%. Vent settings have been decreased to FiO2 40%, PEEP 8. Patient has had x3 small BMs through the night. Surgical incision is well approximated and sutures and trinh intact. There is no active drainage noted. There is a significant improvement in generalized edema from yesterday, +2 pitting edema noted to bilateral upper and lower extremities. Patient is currently receiving IV lasix and is having good output through archuleta catheter. SCDs and Prafo boots are present to lower extremities. Continue with PT to per form ROM exercises to her extremities and joints. Objective - Vital Signs Vital signs: Vital Signs Temp 98.3 F 04/06/23 04:00 Pulse 68 04/06/23 08:15 Resp 32 H 04/06/23 08:00 BP 120/47 04/05/23 09:06 Pulse Ox 100 04/06/23 08:00 FiO2 40 04/06/23 07:55 Intake & Output 04/05/23 04/06/23 04/06/23 18:59 06:59 18:59 Intake Total 1805.595 512.418 13 Output Total 2950 4490 200 Balance -1144.405 -3977.582 -187 Weight 108.5 kg 127.4 kg Intake: IV 196 143 13 0.9NS 60 110 10 0.9NS Pressure Bag 36 33 3 Piperacillin-Tazobactam 3 100 .375 gm In Sodium Chloride 0.9% 100 ml @ 25 mls/hr IVPB Q8HR [facility] Rx# :[id number] Intake, IV Titration 1299.595 369.418 Amount Dextrose 5% in Water 1, 150 000 ml @ 75 mls/hr IV . [id number] [facility] with Sodium Bicarb (1 Meq/ml) 150 ml Rx#:[id number] Insulin Regular 100 unit 46.207 41.731 In Sodium Chloride 0.9% 100 ml @ Per Protocol IV .Q0M [facility] Rx#:[id number] Magnesium Sulfate-D5w Pmx 200 1 gm In Dextrose/Water 1 100ml.bag @ 100 mls/hr IVPB Q1H [facility] Rx#: [id number] Mvi, Adult No.4 with Vit 60 30 K 10 ml Trace (Conc-1Ml/ Dose) 1 ml In Amino Acid 5%-D15w+Lytes*E* 1,000 ml @ 30 mls/hr IV .Q24H [facility] Rx#:[id number] Mvi, Adult No.4 with Vit 30 K 10 ml Trace (Conc-1Ml/ Dose) 1 ml In Amino Acid 5%-D15w+Lytes*E* 1,000 ml @ 45 mls/hr IV .[id number] [facility] Rx#:[id number] Norepinephrine 32 mg In 0 Sodium Chloride 0.9% 218 ml @ 0.03 MCG/KG/MIN 1. 364 mls/hr IV .Q24H [facility] Rx#:[id number] Potassium Chloride 10 meq 300 In Water For Injection 1 100ml.bag @ 100 mls/hr IVPB Q1HR [facility] Rx#: [id number] Potassium Chloride 20 meq 200 In Water For Injection 1 100ml.bag @ 50 mls/hr IVPB Q2H [facility] Rx#: [id number] Vasopressin 60 unit In 17.213 Sodium Chloride 0.9% 150 ml @ 0.04 UNITS/MIN 6.12 mls/hr IV .Q24H [facility] Rx#: [id number] fentaNYL (PF). 1,000 mcg 49.227 95.061 In Sodium Chloride 0.9% 80 ml @ 0.5 MCG/KG/HR 5. 12 mls/hr IV .[id number] [facility] Rx#:[id number] propofoL 1,000 mg In 246.948 202.626 Empty Bag 1 bag @ 15 MCG/ KG/MIN 8.73 mls/hr IV . [id number] [facility] Rx#:[id number] Blood Product 310 Rc As-1 Unit 310 [id number] Output: Gastric Drainage 600 Urine 2350 4490 200 Other: Voiding Method Indwelling Catheter Indwelling Catheter # Bowel Movements 1 ABP, PAP, CO, CI - Last Documented Arterial Blood Pressure 141/58 - Exam Physical Examination Patient remains sedated and on Mechanical ventilation, settings currently FIO2 40%, PEEP 8, O2 sat 98% Inspection: Dressing to surgical incision is clean, dry, and intact, incision is well approximated with trinh and sutures intact. +2 pitting edema noted to bilateral upper and lower extremities. Archuleta catheter remains in place and patent. SCDs and Prafo boots are present to lower extremities. Neurovascular: Radial pulse intact, 2+ bilaterally. Cap refill under 3 seconds in digits upper extremities. - Labs CBC & Chem 7: 04/06/23 03:35 04/06/23 03:35 Labs: Abnormal Lab Results - Last 24 Hours (Table) 04/02/23 04/05/23 04/05/23 Range/Units 11:42 04:00 09:15 WBC (3.8-10.6) k/uL RBC (3.80-5.40) m/uL Hgb (11.4-16.0) gm/dL Hct (34.0-46.0) % RDW (11.5-15.5) % Neutrophils # (Manual) (1.3-7.7) k/uL Metamyelocytes # (Man) (0) k/uL Myelocytes # (Manual) (0) k/uL Nucleated RBCs (0-0) /100 WBC ABG pH (7.35-7.45) ABG pO2 (83-108) mmHg ABG HCO3 (21-25) mmol/L ABG Total CO2 (19-24) mmol/L Sodium (137-145) mmol/L BUN (7-17) mg/dL Glucose (74-99) mg/dL POC Glucose (mg/dL) 141 H (70-110) mg/dL Calcium (8.4-10.2) mg/dL Phosphorus (2.5-4.5) mg/dL TIBC 202 L (228-460) UG/DL Transferrin 144.0 L (204.0-354.0) mg/dL Ferritin 1306.0 H (10.0-291.0) ng/mL Albumin (3.5-5.0) g/dL Triglycerides 417.00 H (0.00-149.00) mg/dL Vitamin B12 >3600.0 H (200.0-944.0) pg/mL Crossmatch See Detail 04/05/23 04/05/23 04/05/23 Range/Units 10:05 12:16 12:19 WBC 18.9 H (3.8-10.6) k/uL RBC 2.54 L (3.80-5.40) m/uL Hgb 8.5 L D (11.4-16.0) gm/dL Hct 24.4 L (34.0-46.0) % RDW (11.5-15.5) % Neutrophils # (Manual) 15.40 H (1.3-7.7) k/uL Metamyelocytes # (Man) 0.57 H (0) k/uL Myelocytes # (Manual) 0.57 H (0) k/uL Nucleated RBCs 1 H (0-0) /100 WBC ABG pH (7.35-7.45) ABG pO2 (83-108) mmHg ABG HCO3 (21-25) mmol/L ABG Total CO2 (19-24) mmol/L Sodium (137-145) mmol/L BUN (7-17) mg/dL Glucose (74-99) mg/dL POC Glucose (mg/dL) 147 H 132 H (70-110) mg/dL Calcium (8.4-10.2) mg/dL Phosphorus (2.5-4.5) mg/dL TIBC (228-460) UG/DL Transferrin (204.0-354.0) mg/dL Ferritin (10.0-291.0) ng/mL Albumin (3.5-5.0) g/dL Triglycerides (0.00-149.00) mg/dL Vitamin B12 (200.0-944.0) pg/mL Crossmatch 04/05/23 04/05/23 04/05/23 Range/Units 13:58 15:21 17:10 WBC (3.8-10.6) k/uL RBC (3.80-5.40) m/uL Hgb (11.4-16.0) gm/dL Hct (34.0-46.0) % RDW (11.5-15.5) % Neutrophils # (Manual) (1.3-7.7) k/uL Metamyelocytes # (Man) (0) k/uL Myelocytes # (Manual) (0) k/uL Nucleated RBCs (0-0) /100 WBC ABG pH (7.35-7.45) ABG pO2 (83-108) mmHg ABG HCO3 (21-25) mmol/L ABG Total CO2 (19-24) mmol/L Sodium (137-145) mmol/L BUN (7-17) mg/dL Glucose (74-99) mg/dL POC Glucose (mg/dL) 122 H 131 H 155 H (70-110) mg/dL Calcium (8.4-10.2) mg/dL Phosphorus (2.5-4.5) mg/dL TIBC (228-460) UG/DL Transferrin (204.0-354.0) mg/dL Ferritin (10.0-291.0) ng/mL Albumin (3.5-5.0) g/dL Triglycerides (0.00-149.00) mg/dL Vitamin B12 (200.0-944.0) pg/mL Crossmatch 04/05/23 04/05/23 04/05/23 Range/Units 18:31 21:13 21:45 WBC (3.8-10.6) k/uL RBC (3.80-5.40) m/uL Hgb (11.4-16.0) gm/dL Hct (34.0-46.0) % RDW (11.5-15.5) % Neutrophils # (Manual) (1.3-7.7) k/uL Metamyelocytes # (Man) (0) k/uL Myelocytes # (Manual) (0) k/uL Nucleated RBCs (0-0) /100 WBC ABG pH (7.35-7.45) ABG pO2 (83-108) mmHg ABG HCO3 (21-25) mmol/L ABG Total CO2 (19-24) mmol/L Sodium (137-145) mmol/L BUN (7-17) mg/dL Glucose (74-99) mg/dL POC Glucose (mg/dL) 147 H 126 H 123 H (70-110) mg/dL Calcium (8.4-10.2) mg/dL Phosphorus (2.5-4.5) mg/dL TIBC (228-460) UG/DL Transferrin (204.0-354.0) mg/dL Ferritin (10.0-291.0) ng/mL Albumin (3.5-5.0) g/dL Triglycerides (0.00-149.00) mg/dL Vitamin B12 (200.0-944.0) pg/mL Crossmatch 04/05/23 04/06/23 04/06/23 Range/Units 22:39 00:51 02:30 WBC (3.8-10.6) k/uL RBC (3.80-5.40) m/uL Hgb (11.4-16.0) gm/dL Hct (34.0-46.0) % RDW (11.5-15.5) % Neutrophils # (Manual) (1.3-7.7) k/uL Metamyelocytes # (Man) (0) k/uL Myelocytes # (Manual) (0) k/uL Nucleated RBCs (0-0) /100 WBC ABG pH (7.35-7.45) ABG pO2 (83-108) mmHg ABG HCO3 (21-25) mmol/L ABG Total CO2 (19-24) mmol/L Sodium (137-145) mmol/L BUN (7-17) mg/dL Glucose (74-99) mg/dL POC Glucose (mg/dL) 129 H 167 H 149 H (70-110) mg/dL Calcium (8.4-10.2) mg/dL Phosphorus (2.5-4.5) mg/dL TIBC (228-460) UG/DL Transferrin (204.0-354.0) mg/dL Ferritin (10.0-291.0) ng/mL Albumin (3.5-5.0) g/dL Triglycerides (0.00-149.00) mg/dL Vitamin B12 (200.0-944.0) pg/mL Crossmatch 04/06/23 04/06/23 04/06/23 Range/Units 03:35 03:35 04:52 WBC 18.4 H (3.8-10.6) k/uL RBC 2.66 L (3.80-5.40) m/uL Hgb 8.9 L (11.4-16.0) gm/dL Hct 25.8 L (34.0-46.0) % RDW 15.8 H (11.5-15.5) % Neutrophils # (Manual) 15.00 H (1.3-7.7) k/uL Metamyelocytes # (Man) 0.55 H (0) k/uL Myelocytes # (Manual) (0) k/uL Nucleated RBCs (0-0) /100 WBC ABG pH 7.51 H (7.35-7.45) ABG pO2 74 L (83-108) mmHg ABG HCO3 29 H (21-25) mmol/L ABG Total CO2 30 H (19-24) mmol/L Sodium 136 L (137-145) mmol/L BUN 26 H (7-17) mg/dL Glucose 159 H (74-99) mg/dL POC Glucose (mg/dL) (70-110) mg/dL Calcium 7.7 L (8.4-10.2) mg/dL Phosphorus 2.4 L (2.5-4.5) mg/dL TIBC (228-460) UG/DL Transferrin (204.0-354.0) mg/dL Ferritin (10.0-291.0) ng/mL Albumin 2.2 L (3.5-5.0) g/dL Triglycerides (0.00-149.00) mg/dL Vitamin B12 (200.0-944.0) pg/mL Crossmatch 04/06/23 04/06/23 Range/Units 06:30 08:31 WBC (3.8-10.6) k/uL RBC (3.80-5.40) m/uL Hgb (11.4-16.0) gm/dL Hct (34.0-46.0) % RDW (11.5-15.5) % Neutrophils # (Manual) (1.3-7.7) k/uL Metamyelocytes # (Man) (0) k/uL Myelocytes # (Manual) (0) k/uL Nucleated RBCs (0-0) /100 WBC ABG pH (7.35-7.45) ABG pO2 (83-108) mmHg ABG HCO3 (21-25) mmol/L ABG Total CO2 (19-24) mmol/L Sodium (137-145) mmol/L BUN (7-17) mg/dL Glucose (74-99) mg/dL POC Glucose (mg/dL) 139 H 159 H (70-110) mg/dL Calcium (8.4-10.2) mg/dL Phosphorus (2.5-4.5) mg/dL TIBC (228-460) UG/DL Transferrin (204.0-354.0) mg/dL Ferritin (10.0-291.0) ng/mL Albumin (3.5-5.0) g/dL Triglycerides (0.00-149.00) mg/dL Vitamin B12 (200.0-944.0) pg/mL Crossmatch Assessment and Plan Assessment: Postop Day 8: Irrigation and Debridement with revision dural repair lumbar spine ; Postop Day 16: [id number] decompression and fusion 1. Aspiration Pneumonia 2. Post-op Ileus 3. Post-op anemia-resolved 4. L1-S1 spondylosis with stenosis 5. L1-S1 spondylolisthesis 6. Lower extremity radiculopathy 7. Low back pain 8. Lower extremity weakness Plan: -Appreciate [employer] sales consultant and team management. -Activity: ROM exercises of extremities if medically tolerated, turn 2hrs, position with pillows -Pain control: Adequate at this time -Meds: reviewed -GI ppx: protonix, continue with aggressive bowel regimen -DVT PPX: SCDs and TEDS -Hygiene: Maintain dressing clean and dry. Meticulous cleaning after BMs away from the incision site -Dispo: Clinically pending *I reviewed and discussed this case with my attending Dr. Duong, whom has reviewed this chart and films and is in agreement with assessment and plan of care as outlined above. I have personally seen and examined the patient, performed the documentation and the assessment and plan as written. Number of minutes spent on the visit: 20m.
[2023-04-06 11:06] LABS: Glucose,Whole Blood 125 mg/dL (70-110)
[2023-04-06] MEDS: INSULIN REGULAR 100 UNIT in SODIUM CHLORIDE 0.9% 100 ML IV SCH (11:11)
[2023-04-06] MEDS: CLEVIDIPINE BUTYRATE 25 MG in EMPTY BAG 1 BAG IV SCH ×2 (11:53→16:31)
[2023-04-06 12:07] LABS: Glucose,Whole Blood 148 mg/dL (70-110)
[2023-04-06] MEDS ORDERED: bisacodyL 10 MG SUPP RECTAL PRN (12:38)
--- NOTE | 2023-04-06 12:39 | P.PN ---
Subjective Progress Note Date: 04/06/23 CHIEF COMPLAINT: Back pain HISTORY OF PRESENT ILLNESS: Patient remains in the ICU and on mechanical venti lation. Tube feedings remain off. She did have 3 bowel movements. She's been started on TPN for nutrition support. She's undergoing a sedation holiday. She is off pressors. Patient received 1 unit of blood yesterday. Hemoglobin is is up at 8.9 PHYSICAL EXAM: VITAL SIGNS: Reviewed. GENERAL: Well-developed in no acute distress. ABDOMEN: Soft nondistended NEUROLOGIC: Sedated and on mechanical ventilation ASSESSMENT: 1. Postop ileus 2. Status post T10 to pelvis decompression with fusion with drainage from surgical site status post irrigation and debridement 3. Possible aspiration pneumonia PLAN: -Continue to hold tube feeds -Continue TPN for nutrition support -Continue OG tube for decompression -Continue Reglan 10 mg IV every 6 hours -Change Dulcolax suppository to PRN -Continue ICU management and supportive care Physician Client Onboarding Analyst note has been reviewed by physician. Signing provider agrees with the documented findings, assessment, and plan of care. I have personally seen and examined the patient, reviewed the HEAD CONTROL CLERK /PAs history, exam and MDM and agree with the assessment and plan as written. Based on total visit time, I have performed more than 50% of the visit. As above: Patient doing better. She is on a sedation holiday. She is having some bowel movements. Begin low-dose tube feeds. Objective - Vital Signs Vital signs: Vital Signs Temp 98.5 F 04/06/23 08:30 Pulse 82 04/06/23 12:33 Resp 28 H 04/06/23 11:00 BP 120/47 04/05/23 09:06 Pulse Ox 99 04/06/23 11:00 FiO2 40 04/06/23 11:59 Intake & Output 04/05/23 04/06/23 04/06/23 18:59 06:59 18:59 Intake Total 1805.595 512.418 563.623 Output Total 2950 4490 2270 Balance -1144.405 -3977.582 -1706.377 Weight 108.5 kg 127.4 kg Intake: IV 196 143 330 0.9NS 60 110 20 0.9NS Pressure Bag 36 33 15 Mvi, Adult No.4 with Vit 120 K 10 ml Trace (Conc-1Ml/ Dose) 1 ml In Amino Acid 5%-D15w+Lytes*E* 1,000 ml @ 30 mls/hr IV .Q24H [facility] Rx#:[id number] Piperacillin-Tazobactam 3 100 75 .375 gm In Sodium Chloride 0.9% 100 ml @ 25 mls/hr IVPB Q8HR [facility] Rx# :[id number] Potassium Chloride 10 meq 100 In Water For Injection 1 100ml.bag @ 100 mls/hr IVPB Q1HR [facility] Rx#: [id number] Intake, IV Titration 1299.595 369.418 233.623 Amount Dextrose 5% in Water 1, 150 000 ml @ 75 mls/hr IV . [id number] [facility] with Sodium Bicarb (1 Meq/ml) 150 ml Rx#:[id number] Insulin Regular 100 unit 46.207 41.731 32.808 In Sodium Chloride 0.9% 100 ml @ Per Protocol IV .Q0M [facility] Rx#:[id number] Magnesium Sulfate-D5w Pmx 200 1 gm In Dextrose/Water 1 100ml.bag @ 100 mls/hr IVPB Q1H [facility] Rx#: [id number] Mvi, Adult No.4 with Vit 60 30 K 10 ml Trace (Conc-1Ml/ Dose) 1 ml In Amino Acid 5%-D15w+Lytes*E* 1,000 ml @ 30 mls/hr IV .Q24H [facility] Rx#:[id number] Mvi, Adult No.4 with Vit 30 K 10 ml Trace (Conc-1Ml/ Dose) 1 ml In Amino Acid 5%-D15w+Lytes*E* 1,000 ml @ 45 mls/hr IV .[id number] [facility] Rx#:[id number] Norepinephrine 32 mg In 0 4.785 Sodium Chloride 0.9% 218 ml @ 0.03 MCG/KG/MIN 1. 364 mls/hr IV .Q24H [facility] Rx#:[id number] Potassium Chloride 10 meq 300 In Water For Injection 1 100ml.bag @ 100 mls/hr IVPB Q1HR [facility] Rx#: [id number] Potassium Chloride 20 meq 200 In Water For Injection 1 100ml.bag @ 50 mls/hr IVPB Q2H [facility] Rx#: [id number] Vasopressin 60 unit In 17.213 Sodium Chloride 0.9% 150 ml @ 0.04 UNITS/MIN 6.12 mls/hr IV .Q24H [facility] Rx#: [id number] fentaNYL (PF). 1,000 mcg 49.227 95.061 100 In Sodium Chloride 0.9% 80 ml @ 0.5 MCG/KG/HR 5. 12 mls/hr IV .[id number] [facility] Rx#:[id number] propofoL 1,000 mg In 246.948 202.626 96.030 Empty Bag 1 bag @ 15 MCG/ KG/MIN 8.73 mls/hr IV . [id number] [facility] Rx#:[id number] Blood Product 310 Rc As-1 Unit 310 [id number] Output: Gastric Drainage 600 Urine 2350 4490 2270 Other: Voiding Method Indwelling Catheter Indwelling Catheter Indwelling Catheter # Bowel Movements 1 ABP, PAP, CO, CI - Last Documented Arterial Blood Pressure 164/60 - Labs CBC & Chem 7: 04/06/23 03:35 04/06/23 03:35 Labs: Abnormal Lab Results - Last 24 Hours (Table) 04/05/23 04/05/23 04/05/23 Range/Units 12:19 13:58 15:21 WBC 18.9 H (3.8-10.6) k/uL RBC 2.54 L (3.80-5.40) m/uL Hgb 8.5 L D (11.4-16.0) gm/dL Hct 24.4 L (34.0-46.0) % RDW (11.5-15.5) % Neutrophils # (Manual) 15.40 H (1.3-7.7) k/uL Metamyelocytes # (Man) 0.57 H (0) k/uL Myelocytes # (Manual) 0.57 H (0) k/uL Nucleated RBCs 1 H (0-0) /100 WBC ABG pH (7.35-7.45) ABG pO2 (83-108) mmHg ABG HCO3 (21-25) mmol/L ABG Total CO2 (19-24) mmol/L Sodium (137-145) mmol/L BUN (7-17) mg/dL Glucose (74-99) mg/dL POC Glucose (mg/dL) 122 H 131 H (70-110) mg/dL Calcium (8.4-10.2) mg/dL Phosphorus (2.5-4.5) mg/dL Albumin (3.5-5.0) g/dL 04/05/23 04/05/23 04/05/23 Range/Units 17:10 18:31 21:13 WBC (3.8-10.6) k/uL RBC (3.80-5.40) m/uL Hgb (11.4-16.0) gm/dL Hct (34.0-46.0) % RDW (11.5-15.5) % Neutrophils # (Manual) (1.3-7.7) k/uL Metamyelocytes # (Man) (0) k/uL Myelocytes # (Manual) (0) k/uL Nucleated RBCs (0-0) /100 WBC ABG pH (7.35-7.45) ABG pO2 (83-108) mmHg ABG HCO3 (21-25) mmol/L ABG Total CO2 (19-24) mmol/L Sodium (137-145) mmol/L BUN (7-17) mg/dL Glucose (74-99) mg/dL POC Glucose (mg/dL) 155 H 147 H 126 H (70-110) mg/dL Calcium (8.4-10.2) mg/dL Phosphorus (2.5-4.5) mg/dL Albumin (3.5-5.0) g/dL 04/05/23 04/05/23 04/06/23 Range/Units 21:45 22:39 00:51 WBC (3.8-10.6) k/uL RBC (3.80-5.40) m/uL Hgb (11.4-16.0) gm/dL Hct (34.0-46.0) % RDW (11.5-15.5) % Neutrophils # (Manual) (1.3-7.7) k/uL Metamyelocytes # (Man) (0) k/uL Myelocytes # (Manual) (0) k/uL Nucleated RBCs (0-0) /100 WBC ABG pH (7.35-7.45) ABG pO2 (83-108) mmHg ABG HCO3 (21-25) mmol/L ABG Total CO2 (19-24) mmol/L Sodium (137-145) mmol/L BUN (7-17) mg/dL Glucose (74-99) mg/dL POC Glucose (mg/dL) 123 H 129 H 167 H (70-110) mg/dL Calcium (8.4-10.2) mg/dL Phosphorus (2.5-4.5) mg/dL Albumin (3.5-5.0) g/dL 04/06/23 04/06/23 04/06/23 Range/Units 02:30 03:35 03:35 WBC 18.4 H (3.8-10.6) k/uL RBC 2.66 L (3.80-5.40) m/uL Hgb 8.9 L (11.4-16.0) gm/dL Hct 25.8 L (34.0-46.0) % RDW 15.8 H (11.5-15.5) % Neutrophils # (Manual) 15.00 H (1.3-7.7) k/uL Metamyelocytes # (Man) 0.55 H (0) k/uL Myelocytes # (Manual) (0) k/uL Nucleated RBCs (0-0) /100 WBC ABG pH (7.35-7.45) ABG pO2 (83-108) mmHg ABG HCO3 (21-25) mmol/L ABG Total CO2 (19-24) mmol/L Sodium 136 L (137-145) mmol/L BUN 26 H (7-17) mg/dL Glucose 159 H (74-99) mg/dL POC Glucose (mg/dL) 149 H (70-110) mg/dL Calcium 7.7 L (8.4-10.2) mg/dL Phosphorus 2.4 L (2.5-4.5) mg/dL Albumin 2.2 L (3.5-5.0) g/dL 04/06/23 04/06/23 04/06/23 Range/Units 04:52 06:30 08:31 WBC (3.8-10.6) k/uL RBC (3.80-5.40) m/uL Hgb (11.4-16.0) gm/dL Hct (34.0-46.0) % RDW (11.5-15.5) % Neutrophils # (Manual) (1.3-7.7) k/uL Metamyelocytes # (Man) (0) k/uL Myelocytes # (Manual) (0) k/uL Nucleated RBCs (0-0) /100 WBC ABG pH 7.51 H (7.35-7.45) ABG pO2 74 L (83-108) mmHg ABG HCO3 29 H (21-25) mmol/L ABG Total CO2 30 H (19-24) mmol/L Sodium (137-145) mmol/L BUN (7-17) mg/dL Glucose (74-99) mg/dL POC Glucose (mg/dL) 139 H 159 H (70-110) mg/dL Calcium (8.4-10.2) mg/dL Phosphorus (2.5-4.5) mg/dL Albumin (3.5-5.0) g/dL 04/06/23 04/06/23 04/06/23 Range/Units 09:08 10:07 11:04 WBC (3.8-10.6) k/uL RBC (3.80-5.40) m/uL Hgb (11.4-16.0) gm/dL Hct (34.0-46.0) % RDW (11.5-15.5) % Neutrophils # (Manual) (1.3-7.7) k/uL Metamyelocytes # (Man) (0) k/uL Myelocytes # (Manual) (0) k/uL Nucleated RBCs (0-0) /100 WBC ABG pH (7.35-7.45) ABG pO2 (83-108) mmHg ABG HCO3 (21-25) mmol/L ABG Total CO2 (19-24) mmol/L Sodium (137-145) mmol/L BUN (7-17) mg/dL Glucose (74-99) mg/dL POC Glucose (mg/dL) 142 H 125 H 125 H (70-110) mg/dL Calcium (8.4-10.2) mg/dL Phosphorus (2.5-4.5) mg/dL Albumin (3.5-5.0) g/dL 04/06/23 Range/Units 12:05 WBC (3.8-10.6) k/uL RBC (3.80-5.40) m/uL Hgb (11.4-16.0) gm/dL Hct (34.0-46.0) % RDW (11.5-15.5) % Neutrophils # (Manual) (1.3-7.7) k/uL Metamyelocytes # (Man) (0) k/uL Myelocytes # (Manual) (0) k/uL Nucleated RBCs (0-0) /100 WBC ABG pH (7.35-7.45) ABG pO2 (83-108) mmHg ABG HCO3 (21-25) mmol/L ABG Total CO2 (19-24) mmol/L Sodium (137-145) mmol/L BUN (7-17) mg/dL Glucose (74-99) mg/dL POC Glucose (mg/dL) 148 H (70-110) mg/dL Calcium (8.4-10.2) mg/dL Phosphorus (2.5-4.5) mg/dL Albumin (3.5-5.0) g/dL
--- NOTE | 2023-04-06 12:54 | P.PN ---
Subjective Progress Note Date: 04/06/23 Patient is a 72-year-old female with dyslipidemia, hypertension, uph-nfcavpt-[id number] diabetes mellitus type 2 who presented for elective T10 to pelvis decompression and fusion. We were consulted for medical management. She underwent successful decompression and fusion on 03/21, however, her po stoperative hospital course was complicated by positional headache suspicious for CSF leak. Subsequently, she was taken back to the operating room on 03/29 for CSF repair. During intubation, patient was noted to have significant amounts of the aspirate emesis and oropharynx and after intubation she was noted to have 1.2 L of gastric output from OG tube. During the procedure she had increasing FiO2 requirements. Postoperatively she became hypotensive down to the 70s/30s and hypoxia down to the mid 60s despite FiO2 of 100% and PEEP of 12. She was transferred to the ICU and started on the Levophed. Differential diagnosis of septic shock secondary to meningitis versus aspiration pneumonia as well as hypovolemic shock secondary to CSF volume loss were considered. She was administered 3L of lactated Ringer's. Chest x-ray postoperatively on 03/29 demonstrated diffuse pulmonary edema with concern for ARDS superimposed on aspiration. Empiric antibiotics were started with vancomycin, ceftriaxone, Unasynfor empiric coverage of both meningitis and aspiration pneumonia/ Infectious disease was consulted. Sputum culture was positive for Klebsiella and Enterobacter with variable resistance. Pro-calcitonin was elevated at 6.7. Her CVP was monitored and remained stable between 13 and 15. Echocardiogram showed EF 60-65%, mild TR, and moderate pulmonary hypertension. Patient was noted to not have a bowel movement in approximately 5 days as of 03/29 and Gen. surgery was consulted for ileus. She developed sepsis induced atrial fibrillation with RVR, was started on amiodarone drip and converted back to normal sinus rhythm. She is placed on metoprolol once her pressor requirements started to decrease on 04/01, however, this was held after pressor requirements increased again on 04/03. Discussed with orthopedic surgery that no anticoagulation will be given for atrial fibrillation during the critical phase, but can be initiated once patient is able to be transitioned to the floor. She did require nimbex which was successfully stopped on 04/03/23, she was given relistor on 04/03/23. She was able to come off levo on 04/04/23. Was briefly on levo overnight on 04/06/23. O2 requirements coming down. Likely sedation holiday today. Patient seen and examined at bedside. Patient sedated on vent. D/W nursing and was briefly on levo, now off. Peep decreased today to 6. Had 3 BM overnight. Vital signs reviewed General: nontoxic, no distress, appears at stated age Cardiovascular: S1S2 reg, no murmur, positive posterior tibial pulse bilateral, Lungs: Coarse breath sounds bilateral, no rhonchi, no rales , no accessory muscle use Abdominal: soft, nontender to palpation, no guarding, no appreciable organomegaly Ext: no gross muscle atrophy, diffuse anasarca with weeping, no contractures Neuro: Pupils pin point, but reactive Psych: sedated on vent Assessment/Plan: Multi-focal pneumonia,due to Klebsiella nad Enterobacter complicated by septic shock Ventilator Dependent Acute Hypoxemic and Hypercarbic Respiratory Failure, ARDS Postoperative ileus, resolving. s/p ,methyl-naltrexone - off pressors - Zosyn D #4 -continue propofol, attempt to wean -Continue with dulcolax 10 mg daily rectal PRN, Reglan 10 mg every 6 hours scheduled IV, MiraLAX 17 mg by mouth daily, Senokot 1 by mouth twice daily -Surgery note reviewed, hold tube feeds, continue TPN, continue NG tube for decompression -Pulmonology note reviewed, peep decreased to 6, Lasix decreased to 40 mg twice a day, Diamox 500 mg once, Wean off sedation, continue IV Solu-Medrol, insulin drip, IV antibiotics, TPN -ID following Sepsis induced atrial fibrillation with RVR, paroxysmal -Amiodarone 200 mg oral twice daily -Patient will require anticoagulation when she is no longer critical 72-year-old female status post T10 to pelvis decompression with fusion s/p CSF repair on 03/29 - Await further Orthospine recs Acute blood loss anemia, hemoglobin currently stable -Anticipated outcome of surgery/prolonged ICU stay -Follow CBC Diabetes mellitus type 2 -Hold metformin -Currently on insulin drip -Follow blood sugars Dyslipidemia -Gemfibrozil Hypertension - antihypertensives on hold Metabolic acidosis, resolved Imaging: Chest x-ray as reviewed by myself from 04/06/23 demonstrates diffuse interstitial infiltrate left greater than right Data Review: Blood sugars range between 125-149 WBC 18.4, hemoglobin 8.9, pH 7.51, pO2 74, sodium 136, potassium 2.7, creatinine 0.7 DVT prophylaxis: Heparin SC Anticipated discharge date: Pending Clinical Course Anticipated discharge place: Pending Clinical Course Objective - Vital Signs Vital signs: Vital Signs Temp 98.5 F 04/06/23 08:30 Pulse 82 04/06/23 12:33 Resp 28 H 04/06/23 11:00 BP 120/47 04/05/23 09:06 Pulse Ox 99 04/06/23 11:00 FiO2 40 04/06/23 11:59 Intake & Output 04/05/23 04/06/23 04/06/23 18:59 06:59 18:59 Intake Total 1805.595 512.418 563.623 Output Total 2950 4490 2270 Balance -1144.405 -3977.582 -1706.377 Weight 108.5 kg 127.4 kg Intake: IV 196 143 330 0.9NS 60 110 20 0.9NS Pressure Bag 36 33 15 Mvi, Adult No.4 with Vit 120 K 10 ml Trace (Conc-1Ml/ Dose) 1 ml In Amino Acid 5%-D15w+Lytes*E* 1,000 ml @ 30 mls/hr IV .Q24H [facility] Rx#:[id number] Piperacillin-Tazobactam 3 100 75 .375 gm In Sodium Chloride 0.9% 100 ml @ 25 mls/hr IVPB Q8HR [facility] Rx# :[id number] Potassium Chloride 10 meq 100 In Water For Injection 1 100ml.bag @ 100 mls/hr IVPB Q1HR [facility] Rx#: [id number] Intake, IV Titration 1299.595 369.418 233.623 Amount Dextrose 5% in Water 1, 150 000 ml @ 75 mls/hr IV . [id number] [facility] with Sodium Bicarb (1 Meq/ml) 150 ml Rx#:[id number] Insulin Regular 100 unit 46.207 41.731 32.808 In Sodium Chloride 0.9% 100 ml @ Per Protocol IV .Q0M [facility] Rx#:[id number] Magnesium Sulfate-D5w Pmx 200 1 gm In Dextrose/Water 1 100ml.bag @ 100 mls/hr IVPB Q1H [facility] Rx#: [id number] Mvi, Adult No.4 with Vit 60 30 K 10 ml Trace (Conc-1Ml/ Dose) 1 ml In Amino Acid 5%-D15w+Lytes*E* 1,000 ml @ 30 mls/hr IV .Q24H [facility] Rx#:[id number] Mvi, Adult No.4 with Vit 30 K 10 ml Trace (Conc-1Ml/ Dose) 1 ml In Amino Acid 5%-D15w+Lytes*E* 1,000 ml @ 45 mls/hr IV .[id number] [facility] Rx#:[id number] Norepinephrine 32 mg In 0 4.785 Sodium Chloride 0.9% 218 ml @ 0.03 MCG/KG/MIN 1. 364 mls/hr IV .Q24H [facility] Rx#:[id number] Potassium Chloride 10 meq 300 In Water For Injection 1 100ml.bag @ 100 mls/hr IVPB Q1HR [facility] Rx#: [id number] Potassium Chloride 20 meq 200 In Water For Injection 1 100ml.bag @ 50 mls/hr IVPB Q2H [facility] Rx#: [id number] Vasopressin 60 unit In 17.213 Sodium Chloride 0.9% 150 ml @ 0.04 UNITS/MIN 6.12 mls/hr IV .Q24H [facility] Rx#: [id number] fentaNYL (PF). 1,000 mcg 49.227 95.061 100 In Sodium Chloride 0.9% 80 ml @ 0.5 MCG/KG/HR 5. 12 mls/hr IV .[id number] [facility] Rx#:[id number] propofoL 1,000 mg In 246.948 202.626 96.030 Empty Bag 1 bag @ 15 MCG/ KG/MIN 8.73 mls/hr IV . [id number] [facility] Rx#:[id number] Blood Product 310 Rc As-1 Unit 310 [id number] Output: Gastric Drainage 600 Urine 2350 4490 2270 Other: Voiding Method Indwelling Catheter Indwelling Catheter Indwelling Catheter # Bowel Movements 1 ABP, PAP, CO, CI - Last Documented Arterial Blood Pressure 164/60 - Labs CBC & Chem 7: 04/06/23 03:35 04/06/23 03:35 Labs: Abnormal Lab Results - Last 24 Hours (Table) 04/05/23 04/05/23 04/05/23 Range/Units 12:19 13:58 15:21 WBC 18.9 H (3.8-10.6) k/uL RBC 2.54 L (3.80-5.40) m/uL Hgb 8.5 L D (11.4-16.0) gm/dL Hct 24.4 L (34.0-46.0) % RDW (11.5-15.5) % Neutrophils # (Manual) 15.40 H (1.3-7.7) k/uL Metamyelocytes # (Man) 0.57 H (0) k/uL Myelocytes # (Manual) 0.57 H (0) k/uL Nucleated RBCs 1 H (0-0) /100 WBC ABG pH (7.35-7.45) ABG pO2 (83-108) mmHg ABG HCO3 (21-25) mmol/L ABG Total CO2 (19-24) mmol/L Sodium (137-145) mmol/L BUN (7-17) mg/dL Glucose (74-99) mg/dL POC Glucose (mg/dL) 122 H 131 H (70-110) mg/dL Calcium (8.4-10.2) mg/dL Phosphorus (2.5-4.5) mg/dL Albumin (3.5-5.0) g/dL 04/05/23 04/05/23 04/05/23 Range/Units 17:10 18:31 21:13 WBC (3.8-10.6) k/uL RBC (3.80-5.40) m/uL Hgb (11.4-16.0) gm/dL Hct (34.0-46.0) % RDW (11.5-15.5) % Neutrophils # (Manual) (1.3-7.7) k/uL Metamyelocytes # (Man) (0) k/uL Myelocytes # (Manual) (0) k/uL Nucleated RBCs (0-0) /100 WBC ABG pH (7.35-7.45) ABG pO2 (83-108) mmHg ABG HCO3 (21-25) mmol/L ABG Total CO2 (19-24) mmol/L Sodium (137-145) mmol/L BUN (7-17) mg/dL Glucose (74-99) mg/dL POC Glucose (mg/dL) 155 H 147 H 126 H (70-110) mg/dL Calcium (8.4-10.2) mg/dL Phosphorus (2.5-4.5) mg/dL Albumin (3.5-5.0) g/dL 04/05/23 04/05/23 04/06/23 Range/Units 21:45 22:39 00:51 WBC (3.8-10.6) k/uL RBC (3.80-5.40) m/uL Hgb (11.4-16.0) gm/dL Hct (34.0-46.0) % RDW (11.5-15.5) % Neutrophils # (Manual) (1.3-7.7) k/uL Metamyelocytes # (Man) (0) k/uL Myelocytes # (Manual) (0) k/uL Nucleated RBCs (0-0) /100 WBC ABG pH (7.35-7.45) ABG pO2 (83-108) mmHg ABG HCO3 (21-25) mmol/L ABG Total CO2 (19-24) mmol/L Sodium (137-145) mmol/L BUN (7-17) mg/dL Glucose (74-99) mg/dL POC Glucose (mg/dL) 123 H 129 H 167 H (70-110) mg/dL Calcium (8.4-10.2) mg/dL Phosphorus (2.5-4.5) mg/dL Albumin (3.5-5.0) g/dL 04/06/23 04/06/23 04/06/23 Range/Units 02:30 03:35 03:35 WBC 18.4 H (3.8-10.6) k/uL RBC 2.66 L (3.80-5.40) m/uL Hgb 8.9 L (11.4-16.0) gm/dL Hct 25.8 L (34.0-46.0) % RDW 15.8 H (11.5-15.5) % Neutrophils # (Manual) 15.00 H (1.3-7.7) k/uL Metamyelocytes # (Man) 0.55 H (0) k/uL Myelocytes # (Manual) (0) k/uL Nucleated RBCs (0-0) /100 WBC ABG pH (7.35-7.45) ABG pO2 (83-108) mmHg ABG HCO3 (21-25) mmol/L ABG Total CO2 (19-24) mmol/L Sodium 136 L (137-145) mmol/L BUN 26 H (7-17) mg/dL Glucose 159 H (74-99) mg/dL POC Glucose (mg/dL) 149 H (70-110) mg/dL Calcium 7.7 L (8.4-10.2) mg/dL Phosphorus 2.4 L (2.5-4.5) mg/dL Albumin 2.2 L (3.5-5.0) g/dL 04/06/23 04/06/23 04/06/23 Range/Units 04:52 06:30 08:31 WBC (3.8-10.6) k/uL RBC (3.80-5.40) m/uL Hgb (11.4-16.0) gm/dL Hct (34.0-46.0) % RDW (11.5-15.5) % Neutrophils # (Manual) (1.3-7.7) k/uL Metamyelocytes # (Man) (0) k/uL Myelocytes # (Manual) (0) k/uL Nucleated RBCs (0-0) /100 WBC ABG pH 7.51 H (7.35-7.45) ABG pO2 74 L (83-108) mmHg ABG HCO3 29 H (21-25) mmol/L ABG Total CO2 30 H (19-24) mmol/L Sodium (137-145) mmol/L BUN (7-17) mg/dL Glucose (74-99) mg/dL POC Glucose (mg/dL) 139 H 159 H (70-110) mg/dL Calcium (8.4-10.2) mg/dL Phosphorus (2.5-4.5) mg/dL Albumin (3.5-5.0) g/dL 04/06/23 04/06/23 04/06/23 Range/Units 09:08 10:07 11:04 WBC (3.8-10.6) k/uL RBC (3.80-5.40) m/uL Hgb (11.4-16.0) gm/dL Hct (34.0-46.0) % RDW (11.5-15.5) % Neutrophils # (Manual) (1.3-7.7) k/uL Metamyelocytes # (Man) (0) k/uL Myelocytes # (Manual) (0) k/uL Nucleated RBCs (0-0) /100 WBC ABG pH (7.35-7.45) ABG pO2 (83-108) mmHg ABG HCO3 (21-25) mmol/L ABG Total CO2 (19-24) mmol/L Sodium (137-145) mmol/L BUN (7-17) mg/dL Glucose (74-99) mg/dL POC Glucose (mg/dL) 142 H 125 H 125 H (70-110) mg/dL Calcium (8.4-10.2) mg/dL Phosphorus (2.5-4.5) mg/dL Albumin (3.5-5.0) g/dL 04/06/23 Range/Units 12:05 WBC (3.8-10.6) k/uL RBC (3.80-5.40) m/uL Hgb (11.4-16.0) gm/dL Hct (34.0-46.0) % RDW (11.5-15.5) % Neutrophils # (Manual) (1.3-7.7) k/uL Metamyelocytes # (Man) (0) k/uL Myelocytes # (Manual) (0) k/uL Nucleated RBCs (0-0) /100 WBC ABG pH (7.35-7.45) ABG pO2 (83-108) mmHg ABG HCO3 (21-25) mmol/L ABG Total CO2 (19-24) mmol/L Sodium (137-145) mmol/L BUN (7-17) mg/dL Glucose (74-99) mg/dL POC Glucose (mg/dL) 148 H (70-110) mg/dL Calcium (8.4-10.2) mg/dL Phosphorus (2.5-4.5) mg/dL Albumin (3.5-5.0) g/dL
[2023-04-06 13:03] LABS: Glucose,Whole Blood 153 mg/dL (70-110)
[2023-04-06 14:30] LABS: Glucose,Whole Blood 188 mg/dL (70-110)
[2023-04-06 15:03] LABS: Glucose,Whole Blood 194 mg/dL (70-110)
[2023-04-06 15:10] LABS: Glucose,Whole Blood 168 mg/dL (70-110)
[2023-04-06 16:24] LABS: Glucose,Whole Blood 162 mg/dL (70-110)
[2023-04-06] MEDS: MVI, ADULT NO.4 WITH VIT K 10 ML, TRACE (CONC-1ML/DOSE) 1 ML in AMINO ACID 5%-D15W+LYTE... IV SCH ×3 (16:31)
[2023-04-06] MEDS: HEPARIN SODIUM,PORCINE 5,000 UNIT/ML 1 ML VIAL SQ SCH ×2 (16:31→23:25)
[2023-04-06 17:04] LABS: Glucose,Whole Blood 144 mg/dL (70-110)
[2023-04-06 18:56] LABS: Glucose,Whole Blood 128 mg/dL (70-110)
[2023-04-06] MEDS: HYDROmorphone 1 MG/ML 1 ML SYRINGE IVP PRN ×2 (19:34→23:25)
[2023-04-06 19:51] LABS: Glucose,Whole Blood 125 mg/dL (70-110)
[2023-04-06 20:59] LABS: Glucose,Whole Blood 107 mg/dL (70-110)
[2023-04-06 21:54] LABS: Glucose,Whole Blood 125 mg/dL (70-110)
[2023-04-06] MEDS: VASOPRESSIN 60 UNIT in SODIUM CHLORIDE 0.9% 150 ML IV SCH (22:16)
[2023-04-06] MEDS: NOREPINEPHRINE 32 MG in SODIUM CHLORIDE 0.9% 218 ML IV SCH (22:16)
[2023-04-06 22:58] LABS: Glucose,Whole Blood 155 mg/dL (70-110)
[2023-04-06 23:48] LABS: Glucose,Whole Blood 191 mg/dL (70-110)
[2023-04-07 01:26] LABS: Glucose,Whole Blood 173 mg/dL (70-110)
[2023-04-07 02:41] LABS: Glucose,Whole Blood 162 mg/dL (70-110)
[2023-04-07 03:05] LABS: Glucose,Whole Blood 158 mg/dL (70-110)
[2023-04-07] MEDS: HYDROmorphone 1 MG/ML 1 ML SYRINGE IVP PRN ×4 (03:28→20:59)
[2023-04-07 03:30] LABS: Anisocytosis Slight; HCT 28.8 % (34.0-46.0); HGB 9.3 gm/dL (11.4-16.0); Hypochromasia Slight; MCH 32.1 pg (25.0-35.0); MCHC 32.4 g/dL (31.0-37.0); MCV 99.1 fL (80.0-100.0); Macrocytosis Slight; Mean Platelet Volume 8.3; Platelet Count 370 k/uL (150-450); Poikilocytosis Slight; RDW 17.4 % (11.5-15.5)
[2023-04-07] MEDS: IPRATROPIUM-ALBUTEROL 3 ML NEB INHALATION SCH ×5 (03:47→19:55)
[2023-04-07 03:55] LABS: African American GFR (CKD) 77 (>60 ml/min/1.73 sqM); Anion Gap 7 mmol/L; Blood Urea Nitrogen 28 mg/dL (7-17); Calcium 7.9 mg/dL (8.4-10.2); Carbon Dioxide 31 mmol/L (22-30); Chloride 108 mmol/L (98-107); Glucose 148 mg/dL (74-99); Magnesium 2.2 mg/dL (1.6-2.3); Non-African American GFR(CKD) 66 (>60 ml/min/1.73 sqM); Phosphorus 3.2 mg/dL (2.5-4.5); Potassium 3.4 mmol/L (3.5-5.1); Sodium 146 mmol/L (137-145)
[2023-04-07 04:01] LABS: Band Neutrophils % 7 %; Metamyelocytes # (M) 0.36 k/uL (0); Metamyelocytes % 2 %; Monocytes # (M) 0.18 k/uL (0-1.0); Myelocytes # (M) 0.18 k/uL (0); Myelocytes % 1 %; Neutrophils % (M) 83 %; Nucleated Red Blood Cells 1 /100 WBC (0-0); Total Cells Counted 200
[2023-04-07 04:02] LABS: Lymphocytes # (M) 1.07 k/uL (1.0-4.8); WBC 17.9 k/uL (3.8-10.6)
[2023-04-07 04:03] LABS: Toxic Granulation Present
[2023-04-07 04:35] LABS: Glucose,Whole Blood 136 mg/dL (70-110)
[2023-04-07] MEDS: METOCLOPRAMIDE 5 MG/ML 2 ML VIAL IVP SCH ×4 (05:40→23:30)
[2023-04-07] MEDS: POTASSIUM CHLORIDE 20 MEQ in WATER FOR INJECTION 1 100ML.BAG IVPB SCH ×2 (05:40→09:16)
[2023-04-07 06:03] LABS: ABG Base Excess 6.2 mmol/L; ABG HCO3 30 mmol/L (21-25); ABG Oxygen Saturation 96.1 % (94-97); ABG PCO2 43 mmHg (35-45); ABG PH 7.46 (7.35-7.45); ABG PO2 81 mmHg (83-108); ABG TCO2 31 mmol/L (19-24)
[2023-04-07 06:30] LABS: Glucose,Whole Blood 139 mg/dL (70-110)
[2023-04-07] MEDS: INSULIN REGULAR 100 UNIT in SODIUM CHLORIDE 0.9% 100 ML IV SCH (06:41)
[2023-04-07 07:15] LABS: Glucose,Whole Blood 133 mg/dL (70-110)
--- NOTE | 2023-04-07 07:30 | XR ---
EXAMINATION TYPE: XR chest 1V portable DATE OF EXAM: 04/07/2023 5:57 AM COMPARISON: Chest radiographs from 04/06/2023 TECHNIQUE: XR chest 1V portable Portable AP radiograph of the chest. CLINICAL INDICATION:Female, 73 years old with history of assess lungs; FINDINGS: Lungs/Pleura: No pleural effusion or pneumothorax. Similar diffuse multifocal patchy airspace opaciti es throughout the lungs. Pulmonary vascularity: Unremarkable. Heart/mediastinum: Cardiomediastinal silhouette is unremarkable. Musculoskeletal: No acute osseous pathology. Degenerative changes of the thoracolumbar spine. Partial ly visualized thoracolumbar posterior spinal fusion hardware again demonstrated. Other findings: Posterior midline skin trinh are redemonstrated. Lines/Tubes: Position of endotracheal and NG tubes. Right IJ central venous catheter again remains with tip in the right atrium. IMPRESSION: 1. No significant change in diffuse multifocal patchy airspace opacities. 2. Stable support lines and tubes.
--- NOTE | 2023-04-07 07:53 | P.PN ---
Subjective Progress Note Date: 04/07/23 Principal diagnosis: 1. L1-S1 spondylosis with stenosis 2. L1-S1 spondylolisthesis 3. Lower extremity radiculopathy 4. Low back pain 5. Lower extremity weakness Patient seen and examined this morning. Patient is currently sedated on mechanical ventilation. Patient was turned this morning to change her surgical dressing and she was attempting to open her eyes. Current vitals: BP 180/60, HR 92, Resp 26, O2 sat 94%. Vent settings have been decreased to FiO2 40%, PEEP 5. Patient has had x1 small BM through the night, slightly more formed. Surgical incision is well approximated and sutures and trinh intact. There is no active drainage noted. There is a significant improvement in generalized edema from yesterday, +2 pitting edema noted to bilateral upper and lower extremities. Patient is currently receiving IV lasix and is having good output through archuleta catheter. SCDs and Prafo boots are present to lower extremities. Continue with PT to perform ROM exercises to her extremities and joints. Objective - Vital Signs Vital signs: Vital Signs Temp 98.3 F 04/07/23 04:00 Pulse 92 04/07/23 07:00 Resp 26 H 04/07/23 07:00 BP 120/47 04/05/23 09:06 Pulse Ox 94 L 04/07/23 07:00 FiO2 40 04/07/23 07:36 Intake & Output 04/06/23 04/07/23 04/07/23 18:59 06:59 18:59 Intake Total 1464.391 906.655 68 Output Total 6070 2260 75 Balance -4605.609 -1353.345 -7 Weight 127.1 kg Intake: IV 1094.0 848 68 0.9NS 80 220 20 0.9NS Pressure Bag 39 33 3 Mvi, Adult No.4 with Vit 240 K 10 ml Trace (Conc-1Ml/ Dose) 1 ml In Amino Acid 5%-D15w+Lytes*E* 1,000 ml @ 30 mls/hr IV .Q24H [facility] Rx#:[id number] Mvi, Adult No.4 with Vit 180 495 45 K 10 ml Trace (Conc-1Ml/ Dose) 1 ml In Amino Acid 5%-D15w+Lytes*E* 1,000 ml @ 45 mls/hr IV .[id number] [facility] Rx#:[id number] Piperacillin-Tazobactam 3 200 100 .375 gm In Sodium Chloride 0.9% 100 ml @ 25 mls/hr IVPB Q8HR [facility] [place] Rx# :[id number] Potassium Chloride 10 meq 100 In Water For Injection 1 100ml.bag @ 100 mls/hr IVPB Q1HR [facility] Rx#: [id number] Sodium Phosphate 15 mmol 255.0 In Dextrose 5% in Water 250 ml @ 127.5 mls/hr IVPB ONCE [facility] Rx#: [id number] Intake, IV Titration 370.391 58.655 Amount Clevidipine Butyrate 25 26.767 mg In Empty Bag 1 bag @ 1 MG/HR 2 mls/hr IV .Q24H [facility] [place] Rx#:[id number] Insulin Regular 100 unit 72.174 58.655 In Sodium Chloride 0.9% 100 ml @ Per Protocol IV .Q0M [facility] [place] Rx#:[id number] Norepinephrine 32 mg In 4.785 Sodium Chloride 0.9% 218 ml @ 0.03 MCG/KG/MIN 1. 364 mls/hr IV .Q24H [facility] [place] Rx#:[id number] Vasopressin 60 unit In 70.635 Sodium Chloride 0.9% 150 ml @ 0.04 UNITS/MIN 6.12 mls/hr IV .Q24H [facility] [place] Rx#: [id number] fentaNYL (PF). 1,000 mcg 100 In Sodium Chloride 0.9% 80 ml @ 0.5 MCG/KG/HR 5. 12 mls/hr IV .[id number] [facility] [place] Rx#:[id number] propofoL 1,000 mg In 96.030 Empty Bag 1 bag @ 15 MCG/ KG/MIN 8.73 mls/hr IV . [id number] [facility] Rx#:[id number] Output: Urine 6070 2260 75 Other: Voiding Method Indwelling Catheter Indwelling Catheter ABP, PAP, CO, CI - Last Documented Arterial Blood Pressure 180/60 - Exam Physical Examination Patient remains sedated and on Mechanical ventilation, settings currently FIO2 40%, PEEP 5, O2 sat 98% Inspection: Dressing to surgical incision is clean, dry, and intact, incision is well approximated with trinh and sutures intact. +2 pitting edema noted to bilateral upper and lower extremities. Archuleta catheter remains in place and patent. SCDs and Prafo boots are present to lower extremities. Neurovascular: Radial pulse intact, 2+ bilaterally. Cap refill under 3 seconds in digits upper extremities. - Labs CBC & Chem 7: 04/07/23 03:06 04/07/23 03:06 Labs: Abnormal Lab Results - Last 24 Hours (Table) 04/02/23 04/06/23 04/06/23 Range/Units 11:42 08:31 09:08 WBC (3.8-10.6) k/uL RBC (3.80-5.40) m/uL Hgb (11.4-16.0) gm/dL Hct (34.0-46.0) % RDW (11.5-15.5) % Neutrophils # (Manual) (1.3-7.7) k/uL Metamyelocytes # (Man) (0) k/uL Myelocytes # (Manual) (0) k/uL Nucleated RBCs (0-0) /100 WBC ABG pH (7.35-7.45) ABG pO2 (83-108) mmHg ABG HCO3 (21-25) mmol/L ABG Total CO2 (19-24) mmol/L Sodium (137-145) mmol/L Potassium (3.5-5.1) mmol/L Chloride (98-107) mmol/L Carbon Dioxide (22-30) mmol/L BUN (7-17) mg/dL Glucose (74-99) mg/dL POC Glucose (mg/dL) 159 H 142 H (70-110) mg/dL Calcium (8.4-10.2) mg/dL Crossmatch See Detail 04/06/23 04/06/23 04/06/23 Range/Units 10:07 11:04 12:05 WBC (3.8-10.6) k/uL RBC (3.80-5.40) m/uL Hgb (11.4-16.0) gm/dL Hct (34.0-46.0) % RDW (11.5-15.5) % Neutrophils # (Manual) (1.3-7.7) k/uL Metamyelocytes # (Man) (0) k/uL Myelocytes # (Manual) (0) k/uL Nucleated RBCs (0-0) /100 WBC ABG pH (7.35-7.45) ABG pO2 (83-108) mmHg ABG HCO3 (21-25) mmol/L ABG Total CO2 (19-24) mmol/L Sodium (137-145) mmol/L Potassium (3.5-5.1) mmol/L Chloride (98-107) mmol/L Carbon Dioxide (22-30) mmol/L BUN (7-17) mg/dL Glucose (74-99) mg/dL POC Glucose (mg/dL) 125 H 125 H 148 H (70-110) mg/dL Calcium (8.4-10.2) mg/dL Crossmatch 04/06/23 04/06/23 04/06/23 Range/Units 13:01 14:29 15:02 WBC (3.8-10.6) k/uL RBC (3.80-5.40) m/uL Hgb (11.4-16.0) gm/dL Hct (34.0-46.0) % RDW (11.5-15.5) % Neutrophils # (Manual) (1.3-7.7) k/uL Metamyelocytes # (Man) (0) k/uL Myelocytes # (Manual) (0) k/uL Nucleated RBCs (0-0) /100 WBC ABG pH (7.35-7.45) ABG pO2 (83-108) mmHg ABG HCO3 (21-25) mmol/L ABG Total CO2 (19-24) mmol/L Sodium (137-145) mmol/L Potassium (3.5-5.1) mmol/L Chloride (98-107) mmol/L Carbon Dioxide (22-30) mmol/L BUN (7-17) mg/dL Glucose (74-99) mg/dL POC Glucose (mg/dL) 153 H 188 H 194 H (70-110) mg/dL Calcium (8.4-10.2) mg/dL Crossmatch 04/06/23 04/06/23 04/06/23 Range/Units 15:08 16:23 17:02 WBC (3.8-10.6) k/uL RBC (3.80-5.40) m/uL Hgb (11.4-16.0) gm/dL Hct (34.0-46.0) % RDW (11.5-15.5) % Neutrophils # (Manual) (1.3-7.7) k/uL Metamyelocytes # (Man) (0) k/uL Myelocytes # (Manual) (0) k/uL Nucleated RBCs (0-0) /100 WBC ABG pH (7.35-7.45) ABG pO2 (83-108) mmHg ABG HCO3 (21-25) mmol/L ABG Total CO2 (19-24) mmol/L Sodium (137-145) mmol/L Potassium (3.5-5.1) mmol/L Chloride (98-107) mmol/L Carbon Dioxide (22-30) mmol/L BUN (7-17) mg/dL Glucose (74-99) mg/dL POC Glucose (mg/dL) 168 H 162 H 144 H (70-110) mg/dL Calcium (8.4-10.2) mg/dL Crossmatch 04/06/23 04/06/23 04/06/23 Range/Units 18:53 19:49 21:53 WBC (3.8-10.6) k/uL RBC (3.80-5.40) m/uL Hgb (11.4-16.0) gm/dL Hct (34.0-46.0) % RDW (11.5-15.5) % Neutrophils # (Manual) (1.3-7.7) k/uL Metamyelocytes # (Man) (0) k/uL Myelocytes # (Manual) (0) k/uL Nucleated RBCs (0-0) /100 WBC ABG pH (7.35-7.45) ABG pO2 (83-108) mmHg ABG HCO3 (21-25) mmol/L ABG Total CO2 (19-24) mmol/L Sodium (137-145) mmol/L Potassium (3.5-5.1) mmol/L Chloride (98-107) mmol/L Carbon Dioxide (22-30) mmol/L BUN (7-17) mg/dL Glucose (74-99) mg/dL POC Glucose (mg/dL) 128 H 125 H 125 H (70-110) mg/dL Calcium (8.4-10.2) mg/dL Crossmatch 04/06/23 04/06/23 04/07/23 Range/Units 22:56 23:46 01:24 WBC (3.8-10.6) k/uL RBC (3.80-5.40) m/uL Hgb (11.4-16.0) gm/dL Hct (34.0-46.0) % RDW (11.5-15.5) % Neutrophils # (Manual) (1.3-7.7) k/uL Metamyelocytes # (Man) (0) k/uL Myelocytes # (Manual) (0) k/uL Nucleated RBCs (0-0) /100 WBC ABG pH (7.35-7.45) ABG pO2 (83-108) mmHg ABG HCO3 (21-25) mmol/L ABG Total CO2 (19-24) mmol/L Sodium (137-145) mmol/L Potassium (3.5-5.1) mmol/L Chloride (98-107) mmol/L Carbon Dioxide (22-30) mmol/L BUN (7-17) mg/dL Glucose (74-99) mg/dL POC Glucose (mg/dL) 155 H 191 H 173 H (70-110) mg/dL Calcium (8.4-10.2) mg/dL Crossmatch 04/07/23 04/07/23 04/07/23 Range/Units 02:39 03:03 03:06 WBC 17.9 H (3.8-10.6) k/uL RBC 2.90 L (3.80-5.40) m/uL Hgb 9.3 L (11.4-16.0) gm/dL Hct 28.8 L (34.0-46.0) % RDW 17.4 H (11.5-15.5) % Neutrophils # (Manual) 16.10 H (1.3-7.7) k/uL Metamyelocytes # (Man) 0.36 H (0) k/uL Myelocytes # (Manual) 0.18 H (0) k/uL Nucleated RBCs 1 H (0-0) /100 WBC ABG pH (7.35-7.45) ABG pO2 (83-108) mmHg ABG HCO3 (21-25) mmol/L ABG Total CO2 (19-24) mmol/L Sodium (137-145) mmol/L Potassium (3.5-5.1) mmol/L Chloride (98-107) mmol/L Carbon Dioxide (22-30) mmol/L BUN (7-17) mg/dL Glucose (74-99) mg/dL POC Glucose (mg/dL) 162 H 158 H (70-110) mg/dL Calcium (8.4-10.2) mg/dL Crossmatch 04/07/23 04/07/23 04/07/23 Range/Units 03:06 04:33 05:59 WBC (3.8-10.6) k/uL RBC (3.80-5.40) m/uL Hgb (11.4-16.0) gm/dL Hct (34.0-46.0) % RDW (11.5-15.5) % Neutrophils # (Manual) (1.3-7.7) k/uL Metamyelocytes # (Man) (0) k/uL Myelocytes # (Manual) (0) k/uL Nucleated RBCs (0-0) /100 WBC ABG pH 7.46 H (7.35-7.45) ABG pO2 81 L (83-108) mmHg ABG HCO3 30 H (21-25) mmol/L ABG Total CO2 31 H (19-24) mmol/L Sodium 146 H (137-145) mmol/L Potassium 3.4 L (3.5-5.1) mmol/L Chloride 108 H (98-107) mmol/L Carbon Dioxide 31 H (22-30) mmol/L BUN 28 H (7-17) mg/dL Glucose 148 H (74-99) mg/dL POC Glucose (mg/dL) 136 H (70-110) mg/dL Calcium 7.9 L (8.4-10.2) mg/dL Crossmatch 04/07/23 04/07/23 Range/Units 06:28 07:13 WBC (3.8-10.6) k/uL RBC (3.80-5.40) m/uL Hgb (11.4-16.0) gm/dL Hct (34.0-46.0) % RDW (11.5-15.5) % Neutrophils # (Manual) (1.3-7.7) k/uL Metamyelocytes # (Man) (0) k/uL Myelocytes # (Manual) (0) k/uL Nucleated RBCs (0-0) /100 WBC ABG pH (7.35-7.45) ABG pO2 (83-108) mmHg ABG HCO3 (21-25) mmol/L ABG Total CO2 (19-24) mmol/L Sodium (137-145) mmol/L Potassium (3.5-5.1) mmol/L Chloride (98-107) mmol/L Carbon Dioxide (22-30) mmol/L BUN (7-17) mg/dL Glucose (74-99) mg/dL POC Glucose (mg/dL) 139 H 133 H (70-110) mg/dL Calcium (8.4-10.2) mg/dL Crossmatch Assessment and Plan Assessment: Postop Day 9: Irrigation and Debridement with revision dural repair lumbar spine ; Postop Day 17: [id number] decompression and fusion 1. Aspiration Pneumonia 2. Post-op Ileus 3. Post-op anemia-resolved 4. L1-S1 spondylosis with stenosis 5. L1-S1 spondylolisthesis 6. Lower extremity radiculopathy 7. Low back pain 8. Lower extremity weakness Plan: -Appreciate employee relations consultant and team management. -Activity: ROM exercises of extremities if medically tolerated, turn 2hrs, position with pillows -Pain control: Adequate at this time -Meds: reviewed -GI ppx: protonix, continue with aggressive bowel regimen -DVT PPX: SCDs and TEDS -Hygiene: Maintain dressing clean and dry. Meticulous cleaning after BMs away from the incision site -Dispo: Clinically pending *I reviewed and discussed this case with my attending Dr. Duong, whom has reviewed this chart and films and is in agreement with assessment and plan of care as outlined above. I have personally seen and examined the patient, performed the documentation and the assessment and plan as written. Number of minutes spent on the visit: 20m.
--- NOTE | 2023-04-07 08:12 | P.PN ---
Subjective Progress Note Date: 04/07/23 Respiratory failure. Patient is a 72-year-old female with past medical history significant for chronic back pain and lumbar radiculopathy, diabetes mellitus type 2, hyperlipidemia, hypertension. Patient has been complaining of lumbar radiculopathy like symptoms earlier this year, and was evaluated by Dr. Duong. She was found to have multilevel spondylosis and spondylolisthesis. She underwent an elective T10 to pelvis decompression and fusion . The initial surgery was done on 03/21/2023. Subsequently, the patient continued to have CSF leak following a complex he 10 decompression fusion and the patient underwent a ureteral repair with a patch graft. This was done on 03/29/2023. On today's evaluation of 04/03/2023, the patient remains intubated on a mechanical ventilator. The patient has been intubated since 03/29/2023. She has an acute hypoxic respiratory failure/bilateral pneumonia/ARDS in addition to hypotension/sepsis. She remains on mechanical ventilator and the splinter assist-control mode rate of 32, tidal volume 400, FiO2 of 60% with a PEEP of 15. Peak airway pressure is 38. They static airway pressure is 34. The chest x- ray from today shows diffuse bilateral pulmonary infiltrates. The patient has a triple-lumen catheter in her right IJ. ET tube seems to be high in the trachea. No evidence of any pleural effusion and there is diffuse consolidation. There is hardware also involving the thoracolumbar spine. At the same time, the patient has a pH of 7.21 with a pCO2 of 43 and pO2 of 89. She is currently sedated and she is on propofol running at 50 mcg/kg/m and fentanyl running at 2 mcg/kg/h the patient is also on paralytics and she is on Nimbex at 3 mcg/kg/m. IV fluids running at KVO. Cardiac rhythm is sinus and the patient remains on amiodarone drip at 0.5 mg/m maintenance. The patient is fully sedated and paralyzed this point in time. IV fluids are at 20 mL an hour and the patient remains on pressors. She is on physiologic dose of vasopressin at 0.04 units an hour and the patient is also on norepinephrine running at 0.08 mcg/kg/m. She has an arterial line in the right brachial. She has a triple-lumen catheter in the right IJ. In terms of her blood work, the patient has a white cell count of 17 with a hemoglobin of 8.3 and a platelet count of 212. Sodium is at 134, potassium is at 4.2, bicarb is at 17, BUN is at 19 with a creatinine of 0.8. Her microbiology from the sputum indicated presence of Enterobacter and Klebsiella. The patient is currently covered with antibiotics and she is on IV cefepime. She is also on vancomycin. The most recent vancomycin trough from yesterday was 15. Urine output is in order of 50 mL an hour and overall fluid balance over the past 24 hours has been +700 mL. The patient has been ess entially in a positive fluid balance over the past several days. The patient is on enteral feeding for nutritional support and currently she is on hold as the patient is having higher residuals. Most recent CT angiogram of the chest that was done on 04/02/2023 showed multifocal groundglass pulmonary opacities and bibasilar consolidation consistent with pneumonia and there is also small pleural effusions and postsurgical changes involving the spine. CAT scan of the abdomen and pelvis was also done on 04/02/2023 and was consistent with ileus. No evidence of any perforation. No evidence of any mechanical obstruction as the patient did not have any focal transition point and contrast was de monstrated throughout the bowel extending to sigmoid colon. There is evidence of sigmoid diverticulosis without evidence of diverticulitis. There is diffuse anasarca. Echo of the heart was done on 03/29/2023 showed normal LV with an ejection fraction of 6065%, there is mild to moderate pulmonary hypertension with mild tricuspid regurgitation. 04/04/2023, the patient remains intubated on a mechanical ventilator. She is currently off paralytics and she is sedated with propofol which is running at a dose of 45 V per kilogram per minute and she is also on fentanyl running at 1.5 mcg/kg/h. The patient is quite seclusive mechanical ventilator. Chest x-ray still showing diffuse bilateral pulmonary infiltrates consistent with pneumonia/ARDS. Nevertheless, there is interval improvement in oxygenation. Today, the patient is on assist-control mode at the rate of 32, tidal volume of 400, FiO2 of 50% with a PEEP of 12. The blood gas that was done on this current setting shows a pH of 7.31 with a pCO2 42 and pO2 of 186. As such, there is improvement in the oxygenation. The peak airway pressure is currently at 30. The static airway pressure is currently at 24. The patient remains on pressors although at a lower dose. Vasopressin is physiologic at 0.04 units an minutes and the patient is also on norepinephrine at 0.01 g hospital kilogram per minutes. The patient remains on amiodarone drip throughout the night and currently her rhythm is sinus and amiodarone drip was discontinued this morning. Feeding was held yesterday because of increased residuals. She does have a com ponent of ileus. She remains on Reglan. NG tube output is 3 50 mL overnight the patient was also started on methyl naltrexone 12 mg for bowel motility. The rest of the blood work shows a white cell count of 15 with a hemoglobin of 7.8 and a platelet count of 183. The sodium is at 131, BUN is at 20 with a creatinine of 0.7. Serum bicarb is up to 20. IV fluids are as a former bicarb infusion rate of 75 mL an hour. She was started on insulin drip for blood sugar control as the patient's blood sugar was quite elevated while being on systemic steroids. She remains on IV Zosyn. No other significant events overnight. Overall fluid balance over the past 24 hours has been in the order of -143 mL and the patient is receiving Lasix at a dose of 20 mg every 12 hours. 04/05/2023, the patient is being seen for a follow-up. She remains intubated on a mechanical ventilator. She is off paralytics and she is on a combination of propofol and fentanyl. Propofol is running at 45 maximum hospital kilogram per minute and fentanyl is running at 1 mcg/kg/h. The patient is on assist-control mode of mechanical ventilation at the rate of 32, tidal volume of 400, FiO2 of 40% with a PEEP of 10. Blood gas from today shows a pH of 7.46 with a pCO2 of 36 and pO2 of 115 and there is progressive improvement in the patient's oxygenation. The chest x-ray from today shows diffuse bilateral pulmonary infiltrates and bilateral pleural effusions slightly worse on the left. Orotracheal tube is in a good location. No evidence of any pneumothorax. No other major abnormalities. The patient is a triple-lumen catheter in her right internal jugular vein. Hemodynamically, the patient is off pressors. This was discontinued yesterday. The patient is currently on IV Lasix. She is producing good urine output and she is still and a positive fluid balance over the past 24 hours. She is currently on Lasix at a dose of 40 mg IV every 12 hours. She is also on a bicarb infusion as the patient is a component of melena negative metabolic acidosis. Serum bicarb is improved and the serum bicarbs up to 24 and a bicarb infusion will be discontinued today. Renal function is stable. The patient had a drop in hemoglobin down to 6.9 at today's evaluation. The white cell count at 17.2. Platelet counts are 226. Overall serum iron is at 53. The patient remains on bronchodilators, systemic steroids and IV Solu-Medrol 40 mg every 12 hours. She is on insulin drip which is running at 5 units an hour and the patient is covered with IV Zosyn regarding kilogram negative pneumonia. Another active issue is her ongoing difficulties with ileus and absent bowel movement activity. The patient has persistent air distention of the colon based on the most recent 5, the abdomen was as yesterday and there is slight improvement compared to the earlier films with the cecum now distended up to 8.1 cm compared to 9.1 cm. The angina output is in order of 500 mL overnight and the patient remains nothing by mouth for now. 04/06/2023 the patient is being seen for a follow-up. The patient is sedated on a combination of propofol and fentanyl. Propofol is at 40 mcg/kg/m and fentanyl still running at 1 mcg/kg/h. She is off paralytics. This morning, she was also taken off the pressors. Chest x-ray still showing diffuse but the pulmonary infiltrates/ARDS. Nevertheless, there has been improvement in oxygenation. The PEEP was gradually weaned down to 8 and the patient remains in respiratory rate of 32, tidal volume of 400 with an FiO2 of 40%. A chest x-ray is showing stable bilateral pulmonary infiltrates. The blood gas from today shows a pH of 7.51 with a pCO2 of 36 and pO2 of 74. The patient is being diuresed with IV Lasix 40 mg every 8 hours. The fluid balance is negative at least 5.1 L over the past 24 hours. The edema has improved both in the upper and lower extremity speech is producing adequate urine output. Note that she also started stooling. She had small bowel movements yesterday total of 3. We were having difficulties in treating this patient and she was started on TPN for nutritional support. She is also on insulin drip at 4 units an hour for blood sugar control. The white cell cause of 18.4 with a hemoglobin of 8.9. Platelet count is at 310. The BUN is at 26 with a creatinine of 0.8 and a sodium level is at 136. Potassium levels at 3.7 and we are chasing and replacing the potassium supplements. The peak airway pressure is down to 27. No other significant events overnight. She remains on IV Zosyn. She remains on steroids. Her cardiac rhythm is sinus and she is on oral amiodarone. 23, I'm seeing the patient for a follow-up. The patient remains intubated on a mechanical ventilator. As of yesterday, we started weaning off sedation this morning the patient is off propofol and off fentanyl. She is opening her eyes pH is still not following any commands. Nevertheless, she is quite comfortable on a mechanical ventilator. No agitation. No restlessness. We are sending the process of monitoring her neurologic recovery off the sedation. Noted the patient has taken massive amounts of sedation and she was paralyzed earlier. She remains on assist-control mode at a rate of 24, tidal volume of 400, FiO2 is down to 40% and the PEEP is down to 5. Blood gas shows a pH of 7.46 with a pCO2 of 43 and pO2 of 81. The chest x-ray is showing no major interval change with diffuse bilateral pulmonary infiltrates. All of the lites are still in place. Hemodynamically she is stable. She is off pressors. She is on insulin drip at 6 units an hour. She is on TPN. Enteral feeding was started again as the patient started having some bowel movement with activity and stool. Will monitor individuals. He is on vital high-protein at the rate of 10 mL an hour and this is being gradually advanced. Meanwhile, WBC count is at 17.9, hemoglobin is at 9.3 and the platelet is at 370. Sodium is at 146 and the patient is being aggressively diuresed. She is in a negative fluid balance of at least 5 L over the past 24 hours. The BUN is at 28 with a creatinine of 0.8. The patient is receiving Lasix 40 mg IV every 12 hours. Cardiac rhythm is sinus. Potassium is being replaced. Antibiotics has been continued and the patient remains on IV Zosyn. Objective - Vital Signs Vital signs: Vital Signs Temp 98.3 F 04/07/23 04:00 Pulse 92 04/07/23 07:00 Resp 26 H 04/07/23 07:00 BP 120/47 04/05/23 09:06 Pulse Ox 94 L 04/07/23 07:00 FiO2 40 04/07/23 07:36 Intake & Output 04/06/23 04/07/23 04/07/23 18:59 06:59 18:59 Intake Total 1464.391 906.655 68 Output Total 6070 2260 75 Balance -4605.609 -1353.345 -7 Weight 127.1 kg Intake: IV 1094.0 848 68 0.9NS 80 220 20 0.9NS Pressure Bag 39 33 3 Mvi, Adult No.4 with Vit 240 K 10 ml Trace (Conc-1Ml/ Dose) 1 ml In Amino Acid 5%-D15w+Lytes*E* 1,000 ml @ 30 mls/hr IV .Q24H ONE Rx#:[id number] Mvi, Adult No.4 with Vit 180 495 45 K 10 ml Trace (Conc-1Ml/ Dose) 1 ml In Amino Acid 5%-D15w+Lytes*E* 1,000 ml @ 45 mls/hr IV .[id number] [facility] Rx#:[id number] Piperacillin-Tazobactam 3 200 100 .375 gm In Sodium Chloride 0.9% 100 ml @ 25 mls/hr IVPB Q8HR [facility] Rx# :[id number] Potassium Chloride 10 meq 100 In Water For Injection 1 100ml.bag @ 100 mls/hr IVPB Q1HR [facility] Rx#: [id number] Sodium Phosphate 15 mmol 255.0 In Dextrose 5% in Water 250 ml @ 127.5 mls/hr IVPB ONCE ONE Rx#: [id number] Intake, IV Titration 370.391 58.655 Amount Clevidipine Butyrate 25 26.767 mg In Empty Bag 1 bag @ 1 MG/HR 2 mls/hr IV .Q24H [facility] Rx#:[id number] Insulin Regular 100 unit 72.174 58.655 In Sodium Chloride 0.9% 100 ml @ Per Protocol IV .Q0M [facility] Rx#:[id number] Norepinephrine 32 mg In 4.785 Sodium Chloride 0.9% 218 ml @ 0.03 MCG/KG/MIN 1. 364 mls/hr IV .Q24H [facility] Rx#:[id number] Vasopressin 60 unit In 70.635 Sodium Chloride 0.9% 150 ml @ 0.04 UNITS/MIN 6.12 mls/hr IV .Q24H [facility] Rx#: [id number] fentaNYL (PF). 1,000 mcg 100 In Sodium Chloride 0.9% 80 ml @ 0.5 MCG/KG/HR 5. 12 mls/hr IV .[id number] [facility] Rx#:[id number] propofoL 1,000 mg In 96.030 Empty Bag 1 bag @ 15 MCG/ KG/MIN 8.73 mls/hr IV . [id number] [facility] Rx#:[id number] Output: Urine 6070 2260 75 Other: Voiding Method Indwelling Catheter Indwelling Catheter ABP, PAP, CO, CI - Last Documented Arterial Blood Pressure 180/60 - Exam No acute distress, sedated, intubated, on a mechanical ventilator and the patient is also sedated She senses the mechanical ventilator. The patient has an orotracheal and orogastric tube both in place. The patient a triple lumen catheter in the right IJ. Head exam was generally normal. There was no scleral icterus or corneal arcus. Mucous membranes were moist. HEENT examination is grossly unremarkable. The patient has a triple-lumen catheter in the right IJ Neck supple. Full range of motion. No adenopathy thyromegaly or neck vein distention. Cardiovascular examination reveals regular rhythm rate. S1-S2 normal. No S3 or S4. No discernible murmur noted. Lungs reveal scattered bilateral rhonchi. Breath sounds equal. Abdomen soft without bowel sounds. The bowel sounds are quite diminished and absent and the patient diffuse abdominal wall edema. No direct tenderness, no rebound tenderness, no guarding Extremities are intact. No cyanosis clubbing and there is diffuse anasarca and edema in all 4 extremities and the patient has a right brachial triple-lumen cat heter. The patient is diminished pulses in all 4 extremities. The patient is showing improvement in the edema in 4 extremities. Skin is without rash or lesion. The surgical wound is dry clean and intact Neurologic examination shows that the patient is opening her eyes spontaneously. Pupils are flexor reactive to light. No facial asymmetry. Motor and sensory functions cannot be adequately assessed. No agitation. The patient is grimacing to deep painful stimulation. Obviously, neurological recovery is going to take some time. The patient was a massive amount of sedation earlier. - Labs CBC & Chem 7: 04/07/23 03:06 04/07/23 03:06 Labs: Abnormal Lab Results - Last 24 Hours (Table) 04/02/23 04/06/23 04/06/23 Range/Units 11:42 08:31 09:08 WBC (3.8-10.6) k/uL RBC (3.80-5.40) m/uL Hgb (11.4-16.0) gm/dL Hct (34.0-46.0) % RDW (11.5-15.5) % Neutrophils # (Manual) (1.3-7.7) k/uL Metamyelocytes # (Man) (0) k/uL Myelocytes # (Manual) (0) k/uL Nucleated RBCs (0-0) /100 WBC ABG pH (7.35-7.45) ABG pO2 (83-108) mmHg ABG HCO3 (21-25) mmol/L ABG Total CO2 (19-24) mmol/L Sodium (137-145) mmol/L Potassium (3.5-5.1) mmol/L Chloride (98-107) mmol/L Carbon Dioxide (22-30) mmol/L BUN (7-17) mg/dL Glucose (74-99) mg/dL POC Glucose (mg/dL) 159 H 142 H (70-110) mg/dL Calcium (8.4-10.2) mg/dL Crossmatch See Detail 04/06/23 04/06/23 04/06/23 Range/Units 10:07 11:04 12:05 WBC (3.8-10.6) k/uL RBC (3.80-5.40) m/uL Hgb (11.4-16.0) gm/dL Hct (34.0-46.0) % RDW (11.5-15.5) % Neutrophils # (Manual) (1.3-7.7) k/uL Metamyelocytes # (Man) (0) k/uL Myelocytes # (Manual) (0) k/uL Nucleated RBCs (0-0) /100 WBC ABG pH (7.35-7.45) ABG pO2 (83-108) mmHg ABG HCO3 (21-25) mmol/L ABG Total CO2 (19-24) mmol/L Sodium (137-145) mmol/L Potassium (3.5-5.1) mmol/L Chloride (98-107) mmol/L Carbon Dioxide (22-30) mmol/L BUN (7-17) mg/dL Glucose (74-99) mg/dL POC Glucose (mg/dL) 125 H 125 H 148 H (70-110) mg/dL Calcium (8.4-10.2) mg/dL Crossmatch 04/06/23 04/06/23 04/06/23 Range/Units 13:01 14:29 15:02 WBC (3.8-10.6) k/uL RBC (3.80-5.40) m/uL Hgb (11.4-16.0) gm/dL Hct (34.0-46.0) % RDW (11.5-15.5) % Neutrophils # (Manual) (1.3-7.7) k/uL Metamyelocytes # (Man) (0) k/uL Myelocytes # (Manual) (0) k/uL Nucleated RBCs (0-0) /100 WBC ABG pH (7.35-7.45) ABG pO2 (83-108) mmHg ABG HCO3 (21-25) mmol/L ABG Total CO2 (19-24) mmol/L Sodium (137-145) mmol/L Potassium (3.5-5.1) mmol/L Chloride (98-107) mmol/L Carbon Dioxide (22-30) mmol/L BUN (7-17) mg/dL Glucose (74-99) mg/dL POC Glucose (mg/dL) 153 H 188 H 194 H (70-110) mg/dL Calcium (8.4-10.2) mg/dL Crossmatch 04/06/23 04/06/23 04/06/23 Range/Units 15:08 16:23 17:02 WBC (3.8-10.6) k/uL RBC (3.80-5.40) m/uL Hgb (11.4-16.0) gm/dL Hct (34.0-46.0) % RDW (11.5-15.5) % Neutrophils # (Manual) (1.3-7.7) k/uL Metamyelocytes # (Man) (0) k/uL Myelocytes # (Manual) (0) k/uL Nucleated RBCs (0-0) /100 WBC ABG pH (7.35-7.45) ABG pO2 (83-108) mmHg ABG HCO3 (21-25) mmol/L ABG Total CO2 (19-24) mmol/L Sodium (137-145) mmol/L Potassium (3.5-5.1) mmol/L Chloride (98-107) mmol/L Carbon Dioxide (22-30) mmol/L BUN (7-17) mg/dL Glucose (74-99) mg/dL POC Glucose (mg/dL) 168 H 162 H 144 H (70-110) mg/dL Calcium (8.4-10.2) mg/dL Crossmatch 04/06/23 04/06/23 04/06/23 Range/Units 18:53 19:49 21:53 WBC (3.8-10.6) k/uL RBC (3.80-5.40) m/uL Hgb (11.4-16.0) gm/dL Hct (34.0-46.0) % RDW (11.5-15.5) % Neutrophils # (Manual) (1.3-7.7) k/uL Metamyelocytes # (Man) (0) k/uL Myelocytes # (Manual) (0) k/uL Nucleated RBCs (0-0) /100 WBC ABG pH (7.35-7.45) ABG pO2 (83-108) mmHg ABG HCO3 (21-25) mmol/L ABG Total CO2 (19-24) mmol/L Sodium (137-145) mmol/L Potassium (3.5-5.1) mmol/L Chloride (98-107) mmol/L Carbon Dioxide (22-30) mmol/L BUN (7-17) mg/dL Glucose (74-99) mg/dL POC Glucose (mg/dL) 128 H 125 H 125 H (70-110) mg/dL Calcium (8.4-10.2) mg/dL Crossmatch 08/11/2404/06/23 04/07/23 Range/Units 22:56 23:46 01:24 WBC (3.8-10.6) k/uL RBC (3.80-5.40) m/uL Hgb (11.4-16.0) gm/dL Hct (34.0-46.0) % RDW (11.5-15.5) % Neutrophils # (Manual) (1.3-7.7) k/uL Metamyelocytes # (Man) (0) k/uL Myelocytes # (Manual) (0) k/uL Nucleated RBCs (0-0) /100 WBC ABG pH (7.35-7.45) ABG pO2 (83-108) mmHg ABG HCO3 (21-25) mmol/L ABG Total CO2 (19-24) mmol/L Sodium (137-145) mmol/L Potassium (3.5-5.1) mmol/L Chloride (98-107) mmol/L Carbon Dioxide (22-30) mmol/L BUN (7-17) mg/dL Glucose (74-99) mg/dL POC Glucose (mg/dL) 155 H 191 H 173 H (70-110) mg/dL Calcium (8.4-10.2) mg/dL Crossmatch 04/07/23 04/07/23 04/07/23 Range/Units 02:39 03:03 03:06 WBC 17.9 H (3.8-10.6) k/uL RBC 2.90 L (3.80-5.40) m/uL Hgb 9.3 L (11.4-16.0) gm/dL Hct 28.8 L (34.0-46.0) % RDW 17.4 H (11.5-15.5) % Neutrophils # (Manual) 16.10 H (1.3-7.7) k/uL Metamyelocytes # (Man) 0.36 H (0) k/uL Myelocytes # (Manual) 0.18 H (0) k/uL Nucleated RBCs 1 H (0-0) /100 WBC ABG pH (7.35-7.45) ABG pO2 (83-108) mmHg ABG HCO3 (21-25) mmol/L ABG Total CO2 (19-24) mmol/L Sodium (137-145) mmol/L Potassium (3.5-5.1) mmol/L Chloride (98-107) mmol/L Carbon Dioxide (22-30) mmol/L BUN (7-17) mg/dL Glucose (74-99) mg/dL POC Glucose (mg/dL) 162 H 158 H (70-110) mg/dL Calcium (8.4-10.2) mg/dL Crossmatch 04/07/23 04/07/23 04/07/23 Range/Units 03:06 04:33 05:59 WBC (3.8-10.6) k/uL RBC (3.80-5.40) m/uL Hgb (11.4-16.0) gm/dL Hct (34.0-46.0) % RDW (11.5-15.5) % Neutrophils # (Manual) (1.3-7.7) k/uL Metamyelocytes # (Man) (0) k/uL Myelocytes # (Manual) (0) k/uL Nucleated RBCs (0-0) /100 WBC ABG pH 7.46 H (7.35-7.45) ABG pO2 81 L (83-108) mmHg ABG HCO3 30 H (21-25) mmol/L ABG Total CO2 31 H (19-24) mmol/L Sodium 146 H (137-145) mmol/L Potassium 3.4 L (3.5-5.1) mmol/L Chloride 108 H (98-107) mmol/L Carbon Dioxide 31 H (22-30) mmol/L BUN 28 H (7-17) mg/dL Glucose 148 H (74-99) mg/dL POC Glucose (mg/dL) 136 H (70-110) mg/dL Calcium 7.9 L (8.4-10.2) mg/dL Crossmatch 04/07/23 04/07/23 Range/Units 06:28 07:13 WBC (3.8-10.6) k/uL RBC (3.80-5.40) m/uL Hgb (11.4-16.0) gm/dL Hct (34.0-46.0) % RDW (11.5-15.5) % Neutrophils # (Manual) (1.3-7.7) k/uL Metamyelocytes # (Man) (0) k/uL Myelocytes # (Manual) (0) k/uL Nucleated RBCs (0-0) /100 WBC ABG pH (7.35-7.45) ABG pO2 (83-108) mmHg ABG HCO3 (21-25) mmol/L ABG Total CO2 (19-24) mmol/L Sodium (137-145) mmol/L Potassium (3.5-5.1) mmol/L Chloride (98-107) mmol/L Carbon Dioxide (22-30) mmol/L BUN (7-17) mg/dL Glucose (74-99) mg/dL POC Glucose (mg/dL) 139 H 133 H (70-110) mg/dL Calcium (8.4-10.2) mg/dL Crossmatch Assessment and Plan Plan: Acute hypoxemic respiratory failure, requiring intubation and mechanical ventilation, subsequent to repair of a dural tear, secondary to a large-volume gastric aspiration. S/P intubation and mechanical ventilation, for respiratory failure, 03/29/2023. Presentation is typical of post aspiration pneumonia with secondary ARDS and the patient is currently sedated and paralyzed. The patient remains sedated on a mechanical ventilator. Oxygenation is stable. PEEP is down to 5. FiO2 is at 40%. Chest exit showing diffuse bilateral pulmonary infiltrates post-ARDS. The patient is currently off sedation. We are monitoring the mental status and neurologic recovery. Acute respiratory distress syndrome. Aspiration pneumonia secondary to Enterobacter and Klebsiella and the patient remains on IV Zosyn Acute Atrial fibrillation with RVR. The current cardiac rhythm is sinus and the patient remains on amiodarone maintenance. Echo cardiac exam shows a preserved LV function without any significant valvular abnormalities, cardiac rhythm remained sinus Lumbar spondylosis and spondylolisthesis, the initial surgery was done on 03/21/2023 status post postop day # 15, T10 to pelvic decompression and fusion. The patient was taken back to the operating room on 03/29/2023 for repair of a dural leak Severe hypotension, likely secondary to sepsis, currently the patient is off pressors History of lumbar radiculopathy. Type 2 diabetes mellitus. The patient is on insulin drip, currently running at 6 units an hour Benign essential hypertension. History of hyperlipidemia. Steroid-induced hyperglycemia the patient is currently on insulin drip running at 6 units an hour Ileus, started on a combination of methyl naltrexone and Reglan, and the patient has produced bowel movements. The patient was started on enteral feeding. She is also on TPN for nutritional support. Anemia of chronic disease with a drop in hemoglobin down to 6.9, normal Cetamide and. No evidence of any acute bleeding. The patient will be given a unit of packed RBC. The follow-up hemoglobin is stable at 9.3 Plan: [place] changes for today Monitor I's and sodium level and continue the IV Lasix Give the patient another dose of Diamox 500 mg IV piggyback 1 Continue Lasix down to 40 mg every 12 hours Stop sedation medications Continue IV Solu-Medrol Continue insulin drip for blood sugar control Continue IV Zosyn Continue TPN for nutritional support. This can be gradually weaned and the enteral feeding will be gradually advanced Monitor mental status and will hopefully see some further recovery. At this point in time, unable to obtain any weaning parameters as the patient is still quite sedated. No focal neurological deficits. Conditions other significant critical continue to follow make further recommendations based on her progress. Critical care evaluation that was done in more than 30 minutes.
[2023-04-07] MEDS: FUROSEMIDE 10 MG/ML 4 ML VIAL IV SCH ×2 (08:52→20:03)
[2023-04-07] MEDS: PIPERACILLIN-TAZOBACTAM 3.375 GM in SODIUM CHLORIDE 0.9% 100 ML IVPB SCH ×3 (08:53→23:31)
[2023-04-07] MEDS: AMIODARONE 200 MG TAB PO SCH ×2 (08:53→20:03)
[2023-04-07] MEDS: PANTOPRAZOLE 40 MG/10 ML VIAL IV SCH (08:53)
[2023-04-07] MEDS: methylPREDNISolone SOD SUCCI 40 MG/ML 1 ML VIAL IV SCH ×2 (08:53→20:04)
[2023-04-07] MEDS: CHLORHEXIDINE GLUCONATE 15 ML CUP MUCOUS MEM SCH ×2 (08:54→20:03)
[2023-04-07] MEDS: GABAPENTIN 100 MG CAP PO SCH ×3 (08:54→21:19)
[2023-04-07 09:04] LABS: Glucose,Whole Blood 121 mg/dL (70-110)
[2023-04-07] MEDS: HYDROmorphone 0.5 MG/0.5 ML SYRINGE IVP PRN ×2 (09:16→14:23)
[2023-04-07] MEDS: HEPARIN SODIUM,PORCINE 5,000 UNIT/ML 1 ML VIAL SQ SCH ×3 (09:29→23:30)
[2023-04-07] MEDS: CLEVIDIPINE BUTYRATE 25 MG in EMPTY BAG 1 BAG IV SCH ×3 (09:49→14:25)
[2023-04-07 10:19] LABS: Glucose,Whole Blood 110 mg/dL (70-110)
[2023-04-07] MEDS: LACTATED RINGERS 1,000 ML IV SCH (11:47)
--- NOTE | 2023-04-07 12:09 | P.PN ---
Subjective Progress Note Date: 04/07/23 Patient is a 72-year-old female with dyslipidemia, hypertension, [id number] diabetes mellitus type 2 who presented for elective T10 to pelvis decompression and fusion. We were consulted for medical management. She underwent successful decompression and fusion on 03/21, however, her po stoperative hospital course was complicated by positional headache suspicious for CSF leak. Subsequently, she was taken back to the operating room on 03/29 for CSF repair. During intubation, patient was noted to have significant amounts of the aspirate emesis and oropharynx and after intubation she was noted to have 1.2 L of gastric output from OG tube. During the procedure she had increasing FiO2 requirements. Postoperatively she became hypotensive down to the 70s/30s and hypoxia down to the mid 60s despite FiO2 of 100% and PEEP of 12. She was transferred to the ICU and started on the Levophed. Differential diagnosis of septic shock secondary to meningitis versus aspiration pneumonia as well as hypovolemic shock secondary to CSF volume loss were considered. She was administered 3L of lactated Ringer's. Chest x-ray postoperatively on 03/29 demonstrated diffuse pulmonary edema with concern for ARDS superimposed on aspiration. Empiric antibiotics were started with vancomycin, ceftriaxone, Unasynfor empiric coverage of both meningitis and aspiration pneumonia/ Infectious disease was consulted. Sputum culture was positive for Klebsiella and Enterobacter with variable resistance. Pro-calcitonin was elevated at 6.7. Her CVP was monitored and remained stable between 13 and 15. Echocardiogram showed EF 60-65%, mild TR, and moderate pulmonary hypertension. Patient was noted to not have a bowel movement in approximately 5 days as of 03/29 and Gen. surgery was consulted for ileus. She developed sepsis induced atrial fibrillation with RVR, was started on amiodarone drip and converted back to normal sinus rhythm. She is placed on metoprolol once her pressor requirements started to decrease on 04/01, however, this was held after pressor requirements increased again on 04/03. Discussed with orthopedic surgery that no anticoagulation will be given for atrial fibrillation during the critical phase, but can be initiated once patient is able to be transitioned to the floor. She did require nimbex which was successfully stopped on 04/03/23, she was given relistor on 04/03/23. She was able to come off levo on 04/04/23. Was briefly on levo overnight on 04/06/23. O2 requirements coming down. Off of propofol. Now becoming hypertensive. Still intubated. Patient seen and examined at bedside. D/W nursing, patient is still now completely following commands, off of propofol. Now having diarrhea. Remains intubated. Oxygen requirements coming down. Vital signs reviewed General: nontoxic, no distress, appears at stated age Cardiovascular: S1S2 reg, no murmur, positive posterior tibial pulse bilateral, Lungs: Coarse breath sounds bilateral, no rhonchi, no rales , no accessory muscle use Abdominal: soft, nontender to palpation, no guarding, no appreciable organomeg teri Ext: no gross muscle atrophy, diffuse anasarca with weeping, no contractures Neuro: Able to follow some commands Psych: Unable to assess Assessment/Plan: Multi-focal pneumonia,due to Klebsiella nad Enterobacter complicated by septic shock Ventilator Dependent Acute Hypoxemic and Hypercarbic Respiratory Failure, ARDS Postoperative ileus, resolved. s/p ,methyl-naltrexone - off pressors - Zosyn D #5 -Continue with dulcolax 10 mg daily rectal PRN, Reglan 10 mg every 6 hours scheduled IV, Senokot 1 by mouth twice daily, MiraLAX as continued -Surgery following, patient remains on TPN and tube feeds -Pulmonology note reviewed, patient on minimal settings, Lasix decreased to 40 mg twice a day, Diamox 500 mg once again, continue IV Solu-Medrol, insulin drip, IV antibiotics, TPN, gradually weaned while increasing tube feeds -ID following Sepsis induced atrial fibrillation with RVR, paroxysmal -Amiodarone 200 mg oral twice daily -Patient will require anticoagulation when she is no longer critical 72-year-old female status post T10 to pelvis decompression with fusion s/p CSF repair on 03/29 -Orthospine following Acute blood loss anemia, hemoglobin currently stable -Anticipated outcome of surgery/prolonged ICU stay -Follow CBC Diabetes mellitus type 2 -Hold metformin -Currently on insulin drip -Follow blood sugars Dyslipidemia -Gemfibrozil Hypertension, uncontrolled -On clevidipine drip -Likely in the setting of weaning sedation and also pain Mild hypokalemia -Repleted -repeat BMP tomorrow Metabolic acidosis, resolved Imaging: Chest x-ray as reviewed by myself from 04/07 demonstrates diffuse interstitial infiltrate left greater than right, similar to yesterday Data Review: Blood sugars range between 110-139 CBC 17.9, hemoglobin 9.3, sodium 146, potassium 3.4, creatinine 0.87, magnesium 2.2, pH 7.46 DVT prophylaxis: Heparin SC Anticipated discharge date: Pending Clinical Course Anticipated discharge place: Pending Clinical Course Objective - Vital Signs Vital signs: Vital Signs Temp 98.7 F 04/07/23 08:00 Pulse 89 04/07/23 11:48 Resp 24 04/07/23 10:00 BP 120/47 04/05/23 09:06 Pulse Ox 95 04/07/23 10:00 FiO2 40 04/07/23 11:17 Intake & Output 04/06/23 04/07/23 04/07/23 18:59 06:59 18:59 Intake Total 1464.391 906.655 119.006 Output Total 6070 2260 75 Balance -4605.609 -1353.345 44.006 Weight 127.1 kg Intake: IV 1094.0 848 68 0.9NS 80 220 20 0.9NS Pressure Bag 39 33 3 Mvi, Adult No.4 with Vit 240 K 10 ml Trace (Conc-1Ml/ Dose) 1 ml In Amino Acid 5%-D15w+Lytes*E* 1,000 ml @ 30 mls/hr IV .Q24H [facility] Rx#:[id number] Mvi, Adult No.4 with Vit 180 495 45 K 10 ml Trace (Conc-1Ml/ Dose) 1 ml In Amino Acid 5%-D15w+Lytes*E* 1,000 ml @ 45 mls/hr IV .[id number] [facility] Rx#:[id number] Piperacillin-Tazobactam 3 200 100 .375 gm In Sodium Chloride 0.9% 100 ml @ 25 mls/hr IVPB Q8HR [facility] Rx# :[id number] Potassium Chloride 10 meq 100 In Water For Injection 1 100ml.bag @ 100 mls/hr IVPB Q1HR [facility] Rx#: [id number] Sodium Phosphate 15 mmol 255.0 In Dextrose 5% in Water 250 ml @ 127.5 mls/hr IVPB ONCE ONE Rx#: [id number] Intake, IV Titration 370.391 58.655 51.006 Amount Clevidipine Butyrate 25 26.767 30.2 mg In Empty Bag 1 bag @ 1 MG/HR 2 mls/hr IV .Q24H [facility] Rx#:[id number] Insulin Regular 100 unit 72.174 58.655 20.806 In Sodium Chloride 0.9% 100 ml @ Per Protocol IV .Q0M [facility] Rx#:[id number] Norepinephrine 32 mg In 4.785 Sodium Chloride 0.9% 218 ml @ 0.03 MCG/KG/MIN 1. 364 mls/hr IV .Q24H [facility] Rx#:[id number] Vasopressin 60 unit In 70.635 Sodium Chloride 0.9% 150 ml @ 0.04 UNITS/MIN 6.12 mls/hr IV .Q24H [facility] Rx#: [id number] fentaNYL (PF). 1,000 mcg 100 In Sodium Chloride 0.9% 80 ml @ 0.5 MCG/KG/HR 5. 12 mls/hr IV .[id number] [facility] Rx#:[id number] propofoL 1,000 mg In 96.030 Empty Bag 1 bag @ 15 MCG/ KG/MIN 8.73 mls/hr IV . [id number] [facility] Rx#:[id number] Output: Urine 6070 2260 75 Other: Voiding Method Indwelling Catheter Indwelling Catheter ABP, PAP, CO, CI - Last Documented Arterial Blood Pressure 167/57 - Labs CBC & Chem 7: 04/07/23 03:06 04/07/23 03:06 Labs: Abnormal Lab Results - Last 24 Hours (Table) 04/02/23 04/06/23 04/06/23 Range/Units 11:42 13:01 14:29 WBC (3.8-10.6) k/uL RBC (3.80-5.40) m/uL Hgb (11.4-16.0) gm/dL Hct (34.0-46.0) % RDW (11.5-15.5) % Neutrophils # (Manual) (1.3-7.7) k/uL Metamyelocytes # (Man) (0) k/uL Myelocytes # (Manual) (0) k/uL Nucleated RBCs (0-0) /100 WBC ABG pH (7.35-7.45) ABG pO2 (83-108) mmHg ABG HCO3 (21-25) mmol/L ABG Total CO2 (19-24) mmol/L Sodium (137-145) mmol/L Potassium (3.5-5.1) mmol/L Chloride (98-107) mmol/L Carbon Dioxide (22-30) mmol/L BUN (7-17) mg/dL Glucose (74-99) mg/dL POC Glucose (mg/dL) 153 H 188 H (70-110) mg/dL Calcium (8.4-10.2) mg/dL Crossmatch See Detail 04/06/23 04/06/23 04/06/23 Range/Units 15:02 15:08 16:23 WBC (3.8-10.6) k/uL RBC (3.80-5.40) m/uL Hgb (11.4-16.0) gm/dL Hct (34.0-46.0) % RDW (11.5-15.5) % Neutrophils # (Manual) (1.3-7.7) k/uL Metamyelocytes # (Man) (0) k/uL Myelocytes # (Manual) (0) k/uL Nucleated RBCs (0-0) /100 WBC ABG pH (7.35-7.45) ABG pO2 (83-108) mmHg ABG HCO3 (21-25) mmol/L ABG Total CO2 (19-24) mmol/L Sodium (137-145) mmol/L Potassium (3.5-5.1) mmol/L Chloride (98-107) mmol/L Carbon Dioxide (22-30) mmol/L BUN (7-17) mg/dL Glucose (74-99) mg/dL POC Glucose (mg/dL) 194 H 168 H 162 H (70-110) mg/dL Calcium (8.4-10.2) mg/dL Crossmatch 04/06/23 04/06/23 04/06/23 Range/Units 17:02 18:53 19:49 WBC (3.8-10.6) k/uL RBC (3.80-5.40) m/uL Hgb (11.4-16.0) gm/dL Hct (34.0-46.0) % RDW (11.5-15.5) % Neutrophils # (Manual) (1.3-7.7) k/uL Metamyelocytes # (Man) (0) k/uL Myelocytes # (Manual) (0) k/uL Nucleated RBCs (0-0) /100 WBC ABG pH (7.35-7.45) ABG pO2 (83-108) mmHg ABG HCO3 (21-25) mmol/L ABG Total CO2 (19-24) mmol/L Sodium (137-145) mmol/L Potassium (3.5-5.1) mmol/L Chloride (98-107) mmol/L Carbon Dioxide (22-30) mmol/L BUN (7-17) mg/dL Glucose (74-99) mg/dL POC Glucose (mg/dL) 144 H 128 H 125 H (70-110) mg/dL Calcium (8.4-10.2) mg/dL Crossmatch 04/06/23 04/06/23 04/06/23 Range/Units 21:53 22:56 23:46 WBC (3.8-10.6) k/uL RBC (3.80-5.40) m/uL Hgb (11.4-16.0) gm/dL Hct (34.0-46.0) % RDW (11.5-15.5) % Neutrophils # (Manual) (1.3-7.7) k/uL Metamyelocytes # (Man) (0) k/uL Myelocytes # (Manual) (0) k/uL Nucleated RBCs (0-0) /100 WBC ABG pH (7.35-7.45) ABG pO2 (83-108) mmHg ABG HCO3 (21-25) mmol/L ABG Total CO2 (19-24) mmol/L Sodium (137-145) mmol/L Potassium (3.5-5.1) mmol/L Chloride (98-107) mmol/L Carbon Dioxide (22-30) mmol/L BUN (7-17) mg/dL Glucose (74-99) mg/dL POC Glucose (mg/dL) 125 H 155 H 191 H (70-110) mg/dL Calcium (8.4-10.2) mg/dL Crossmatch 04/07/23 04/07/23 04/07/23 Range/Units 01:24 02:39 03:03 WBC (3.8-10.6) k/uL RBC (3.80-5.40) m/uL Hgb (11.4-16.0) gm/dL Hct (34.0-46.0) % RDW (11.5-15.5) % Neutrophils # (Manual) (1.3-7.7) k/uL Metamyelocytes # (Man) (0) k/uL Myelocytes # (Manual) (0) k/uL Nucleated RBCs (0-0) /100 WBC ABG pH (7.35-7.45) ABG pO2 (83-108) mmHg ABG HCO3 (21-25) mmol/L ABG Total CO2 (19-24) mmol/L Sodium (137-145) mmol/L Potassium (3.5-5.1) mmol/L Chloride (98-107) mmol/L Carbon Dioxide (22-30) mmol/L BUN (7-17) mg/dL Glucose (74-99) mg/dL POC Glucose (mg/dL) 173 H 162 H 158 H (70-110) mg/dL Calcium (8.4-10.2) mg/dL Crossmatch 04/07/23 04/07/23 04/07/23 Range/Units 03:06 03:06 04:33 WBC 17.9 H (3.8-10.6) k/uL RBC 2.90 L (3.80-5.40) m/uL Hgb 9.3 L (11.4-16.0) gm/dL Hct 28.8 L (34.0-46.0) % RDW 17.4 H (11.5-15.5) % Neutrophils # (Manual) 16.10 H (1.3-7.7) k/uL Metamyelocytes # (Man) 0.36 H (0) k/uL Myelocytes # (Manual) 0.18 H (0) k/uL Nucleated RBCs 1 H (0-0) /100 WBC ABG pH (7.35-7.45) ABG pO2 (83-108) mmHg ABG HCO3 (21-25) mmol/L ABG Total CO2 (19-24) mmol/L Sodium 146 H (137-145) mmol/L Potassium 3.4 L (3.5-5.1) mmol/L Chloride 108 H (98-107) mmol/L Carbon Dioxide 31 H (22-30) mmol/L BUN 28 H (7-17) mg/dL Glucose 148 H (74-99) mg/dL POC Glucose (mg/dL) 136 H (70-110) mg/dL Calcium 7.9 L (8.4-10.2) mg/dL Crossmatch 04/07/23 04/07/23 04/07/23 Range/Units 05:59 06:28 07:13 WBC (3.8-10.6) k/uL RBC (3.80-5.40) m/uL Hgb (11.4-16.0) gm/dL Hct (34.0-46.0) % RDW (11.5-15.5) % Neutrophils # (Manual) (1.3-7.7) k/uL Metamyelocytes # (Man) (0) k/uL Myelocytes # (Manual) (0) k/uL Nucleated RBCs (0-0) /100 WBC ABG pH 7.46 H (7.35-7.45) ABG pO2 81 L (83-108) mmHg ABG HCO3 30 H (21-25) mmol/L ABG Total CO2 31 H (19-24) mmol/L Sodium (137-145) mmol/L Potassium (3.5-5.1) mmol/L Chloride (98-107) mmol/L Carbon Dioxide (22-30) mmol/L BUN (7-17) mg/dL Glucose (74-99) mg/dL POC Glucose (mg/dL) 139 H 133 H (70-110) mg/dL Calcium (8.4-10.2) mg/dL Crossmatch 04/07/23 Range/Units 09:02 WBC (3.8-10.6) k/uL RBC (3.80-5.40) m/uL Hgb (11.4-16.0) gm/dL Hct (34.0-46.0) % RDW (11.5-15.5) % Neutrophils # (Manual) (1.3-7.7) k/uL Metamyelocytes # (Man) (0) k/uL Myelocytes # (Manual) (0) k/uL Nucleated RBCs (0-0) /100 WBC ABG pH (7.35-7.45) ABG pO2 (83-108) mmHg ABG HCO3 (21-25) mmol/L ABG Total CO2 (19-24) mmol/L Sodium (137-145) mmol/L Potassium (3.5-5.1) mmol/L Chloride (98-107) mmol/L Carbon Dioxide (22-30) mmol/L BUN (7-17) mg/dL Glucose (74-99) mg/dL POC Glucose (mg/dL) 121 H (70-110) mg/dL Calcium (8.4-10.2) mg/dL Crossmatch
[2023-04-07 12:11] LABS: Glucose,Whole Blood 129 mg/dL (70-110)
[2023-04-07 13:30] LABS: Glucose,Whole Blood 144 mg/dL (70-110)
[2023-04-07] MEDS: ARTIFICIAL TEARS-HYPROMELLOSE DROPS 15 ML BTL BOTH EYES SCH ×4 (13:37→21:19)
[2023-04-07] MEDS: SENNOSIDES-DOCUSATE SODIUM 1 EACH TAB PO SCH ×2 (13:40→20:05)
--- NOTE | 2023-04-07 13:43 | P.PN ---
Subjective Progress Note Date: 04/07/23 Principal diagnosis: Ileus Patient remains on the ventilator. She is doing better however. She is weaning at this time. She is following commands. Denies pain. She is tolerating tube feeds at 10 mL per hour. She had a firmer stool last night. No residuals Objective - Vital Signs Vital signs: Vital Signs Temp 98.5 F 04/07/23 12:00 Pulse 87 04/07/23 12:00 Resp 29 H 04/07/23 12:00 BP 120/47 04/05/23 09:06 Pulse Ox 93 L 04/07/23 12:00 FiO2 40 04/07/23 12:00 Intake & Output 04/06/23 04/07/23 04/07/23 18:59 06:59 18:59 Intake Total 1464.391 906.655 224.006 Output Total 6070 2260 3325 Balance -4605.609 -1353.345 -3100.994 Weight 127.1 kg 127.1 kg Intake: IV 1094.0 848 133 0.9NS 80 220 70 0.9NS Pressure Bag 39 33 18 Mvi, Adult No.4 with Vit 240 K 10 ml Trace (Conc-1Ml/ Dose) 1 ml In Amino Acid 5%-D15w+Lytes*E* 1,000 ml @ 30 mls/hr IV .Q24H [facility] Rx#:[id number] Mvi, Adult No.4 with Vit 180 495 45 K 10 ml Trace (Conc-1Ml/ Dose) 1 ml In Amino Acid 5%-D15w+Lytes*E* 1,000 ml @ 45 mls/hr IV .[id number] [facility] Rx#:[id number] Piperacillin-Tazobactam 3 200 100 .375 gm In Sodium Chloride 0.9% 100 ml @ 25 mls/hr IVPB Q8HR [facility] Rx# :[id number] Potassium Chloride 10 meq 100 In Water For Injection 1 100ml.bag @ 100 mls/hr IVPB Q1HR [facility] Rx#: [id number] Sodium Phosphate 15 mmol 255.0 In Dextrose 5% in Water 250 ml @ 127.5 mls/hr IVPB ONCE [facility] Rx#: [id number] Intake, IV Titration 370.391 58.655 51.006 Amount Clevidipine Butyrate 25 26.767 30.2 mg In Empty Bag 1 bag @ 1 MG/HR 2 mls/hr IV .Q24H [facility] Rx#:[id number] Insulin Regular 100 unit 72.174 58.655 20.806 In Sodium Chloride 0.9% 100 ml @ Per Protocol IV .Q0M [facility] Rx#:[id number] Norepinephrine 32 mg In 4.785 Sodium Chloride 0.9% 218 ml @ 0.03 MCG/KG/MIN 1. 364 mls/hr IV .Q24H [facility] Rx#:[id number] Vasopressin 60 unit In 70.635 Sodium Chloride 0.9% 150 ml @ 0.04 UNITS/MIN 6.12 mls/hr IV .Q24H [facility] Rx#: [id number] fentaNYL (PF). 1,000 mcg 100 In Sodium Chloride 0.9% 80 ml @ 0.5 MCG/KG/HR 5. 12 mls/hr IV .[id number] [facility] Rx#:[id number] propofoL 1,000 mg In 96.030 Empty Bag 1 bag @ 15 MCG/ KG/MIN 8.73 mls/hr IV . [id number] [facility] Rx#:[id number] Tube Feeding 40 Output: Urine 6070 2260 3325 Other: Voiding Method Indwelling Catheter Indwelling Catheter Indwelling Catheter ABP, PAP, CO, CI - Last Documented Arterial Blood Pressure 151/44 - Exam Abdomen: Soft, mild distention, nontender - Labs CBC & Chem 7: 04/07/23 03:06 04/07/23 03:06 Labs: Abnormal Lab Results - Last 24 Hours (Table) 04/02/23 04/06/23 04/06/23 Range/Units 11:42 14:29 15:02 WBC (3.8-10.6) k/uL RBC (3.80-5.40) m/uL Hgb (11.4-16.0) gm/dL Hct (34.0-46.0) % RDW (11.5-15.5) % Neutrophils # (Manual) (1.3-7.7) k/uL Metamyelocytes # (Man) (0) k/uL Myelocytes # (Manual) (0) k/uL Nucleated RBCs (0-0) /100 WBC ABG pH (7.35-7.45) ABG pO2 (83-108) mmHg ABG HCO3 (21-25) mmol/L ABG Total CO2 (19-24) mmol/L Sodium (137-145) mmol/L Potassium (3.5-5.1) mmol/L Chloride (98-107) mmol/L Carbon Dioxide (22-30) mmol/L BUN (7-17) mg/dL Glucose (74-99) mg/dL POC Glucose (mg/dL) 188 H 194 H (70-110) mg/dL Calcium (8.4-10.2) mg/dL Crossmatch See Detail 04/06/23 04/06/23 04/06/23 Range/Units 15:08 16:23 17:02 WBC (3.8-10.6) k/uL RBC (3.80-5.40) m/uL Hgb (11.4-16.0) gm/dL Hct (34.0-46.0) % RDW (11.5-15.5) % Neutrophils # (Manual) (1.3-7.7) k/uL Metamyelocytes # (Man) (0) k/uL Myelocytes # (Manual) (0) k/uL Nucleated RBCs (0-0) /100 WBC ABG pH (7.35-7.45) ABG pO2 (83-108) mmHg ABG HCO3 (21-25) mmol/L ABG Total CO2 (19-24) mmol/L Sodium (137-145) mmol/L Potassium (3.5-5.1) mmol/L Chloride (98-107) mmol/L Carbon Dioxide (22-30) mmol/L BUN (7-17) mg/dL Glucose (74-99) mg/dL POC Glucose (mg/dL) 168 H 162 H 144 H (70-110) mg/dL Calcium (8.4-10.2) mg/dL Crossmatch 04/06/23 04/06/23 04/06/23 Range/Units 18:53 19:49 21:53 WBC (3.8-10.6) k/uL RBC (3.80-5.40) m/uL Hgb (11.4-16.0) gm/dL Hct (34.0-46.0) % RDW (11.5-15.5) % Neutrophils # (Manual) (1.3-7.7) k/uL Metamyelocytes # (Man) (0) k/uL Myelocytes # (Manual) (0) k/uL Nucleated RBCs (0-0) /100 WBC ABG pH (7.35-7.45) ABG pO2 (83-108) mmHg ABG HCO3 (21-25) mmol/L ABG Total CO2 (19-24) mmol/L Sodium (137-145) mmol/L Potassium (3.5-5.1) mmol/L Chloride (98-107) mmol/L Carbon Dioxide (22-30) mmol/L BUN (7-17) mg/dL Glucose (74-99) mg/dL POC Glucose (mg/dL) 128 H 125 H 125 H (70-110) mg/dL Calcium (8.4-10.2) mg/dL Crossmatch 04/06/23 04/06/23 04/07/23 Range/Units 22:56 23:46 01:24 WBC (3.8-10.6) k/uL RBC (3.80-5.40) m/uL Hgb (11.4-16.0) gm/dL Hct (34.0-46.0) % RDW (11.5-15.5) % Neutrophils # (Manual) (1.3-7.7) k/uL Metamyelocytes # (Man) (0) k/uL Myelocytes # (Manual) (0) k/uL Nucleated RBCs (0-0) /100 WBC ABG pH (7.35-7.45) ABG pO2 (83-108) mmHg ABG HCO3 (21-25) mmol/L ABG Total CO2 (19-24) mmol/L Sodium (137-145) mmol/L Potassium (3.5-5.1) mmol/L Chloride (98-107) mmol/L Carbon Dioxide (22-30) mmol/L BUN (7-17) mg/dL Glucose (74-99) mg/dL POC Glucose (mg/dL) 155 H 191 H 173 H (70-110) mg/dL Calcium (8.4-10.2) mg/dL Crossmatch 04/07/23 04/07/23 04/07/23 Range/Units 02:39 03:03 03:06 WBC 17.9 H (3.8-10.6) k/uL RBC 2.90 L (3.80-5.40) m/uL Hgb 9.3 L (11.4-16.0) gm/dL Hct 28.8 L (34.0-46.0) % RDW 17.4 H (11.5-15.5) % Neutrophils # (Manual) 16.10 H (1.3-7.7) k/uL Metamyelocytes # (Man) 0.36 H (0) k/uL Myelocytes # (Manual) 0.18 H (0) k/uL Nucleated RBCs 1 H (0-0) /100 WBC ABG pH (7.35-7.45) ABG pO2 (83-108) mmHg ABG HCO3 (21-25) mmol/L ABG Total CO2 (19-24) mmol/L Sodium (137-145) mmol/L Potassium (3.5-5.1) mmol/L Chloride (98-107) mmol/L Carbon Dioxide (22-30) mmol/L BUN (7-17) mg/dL Glucose (74-99) mg/dL POC Glucose (mg/dL) 162 H 158 H (70-110) mg/dL Calcium (8.4-10.2) mg/dL Crossmatch 04/07/23 04/07/23 04/07/23 Range/Units 03:06 04:33 05:59 WBC (3.8-10.6) k/uL RBC (3.80-5.40) m/uL Hgb (11.4-16.0) gm/dL Hct (34.0-46.0) % RDW (11.5-15.5) % Neutrophils # (Manual) (1.3-7.7) k/uL Metamyelocytes # (Man) (0) k/uL Myelocytes # (Manual) (0) k/uL Nucleated RBCs (0-0) /100 WBC ABG pH 7.46 H (7.35-7.45) ABG pO2 81 L (83-108) mmHg ABG HCO3 30 H (21-25) mmol/L ABG Total CO2 31 H (19-24) mmol/L Sodium 146 H (137-145) mmol/L Potassium 3.4 L (3.5-5.1) mmol/L Chloride 108 H (98-107) mmol/L Carbon Dioxide 31 H (22-30) mmol/L BUN 28 H (7-17) mg/dL Glucose 148 H (74-99) mg/dL POC Glucose (mg/dL) 136 H (70-110) mg/dL Calcium 7.9 L (8.4-10.2) mg/dL Crossmatch 04/07/23 04/07/23 04/07/23 Range/Units 06:28 07:13 09:02 WBC (3.8-10.6) k/uL RBC (3.80-5.40) m/uL Hgb (11.4-16.0) gm/dL Hct (34.0-46.0) % RDW (11.5-15.5) % Neutrophils # (Manual) (1.3-7.7) k/uL Metamyelocytes # (Man) (0) k/uL Myelocytes # (Manual) (0) k/uL Nucleated RBCs (0-0) /100 WBC ABG pH (7.35-7.45) ABG pO2 (83-108) mmHg ABG HCO3 (21-25) mmol/L ABG Total CO2 (19-24) mmol/L Sodium (137-145) mmol/L Potassium (3.5-5.1) mmol/L Chloride (98-107) mmol/L Carbon Dioxide (22-30) mmol/L BUN (7-17) mg/dL Glucose (74-99) mg/dL POC Glucose (mg/dL) 139 H 133 H 121 H (70-110) mg/dL Calcium (8.4-10.2) mg/dL Crossmatch 04/07/23 04/07/23 Range/Units 12:10 13:19 WBC (3.8-10.6) k/uL RBC (3.80-5.40) m/uL Hgb (11.4-16.0) gm/dL Hct (34.0-46.0) % RDW (11.5-15.5) % Neutrophils # (Manual) (1.3-7.7) k/uL Metamyelocytes # (Man) (0) k/uL Myelocytes # (Manual) (0) k/uL Nucleated RBCs (0-0) /100 WBC ABG pH (7.35-7.45) ABG pO2 (83-108) mmHg ABG HCO3 (21-25) mmol/L ABG Total CO2 (19-24) mmol/L Sodium (137-145) mmol/L Potassium (3.5-5.1) mmol/L Chloride (98-107) mmol/L Carbon Dioxide (22-30) mmol/L BUN (7-17) mg/dL Glucose (74-99) mg/dL POC Glucose (mg/dL) 129 H 144 H (70-110) mg/dL Calcium (8.4-10.2) mg/dL Crossmatch Assessment and Plan (1) Ileus Narrative/Plan: 73-year-old female with ileus. Doing well at this time. Continue weaning trials. Continue tube feeds at 10 mL per hour. Monitor bowel function. Current Visit: Yes Status: Acute Code(s): K56.7 - ILEUS, UNSPECIFIED SNOMED Code(s): 235344248
[2023-04-07 14:09] LABS: Glucose,Whole Blood 169 mg/dL (70-110)
[2023-04-07 15:12] LABS: Glucose,Whole Blood 185 mg/dL (70-110)
[2023-04-07 16:23] LABS: Glucose,Whole Blood 161 mg/dL (70-110)
[2023-04-07] MEDS: [UNRECOGNIZED DRUG - REMARK] IV SCH ×7 (16:56)
[2023-04-07] MEDS: MVI, ADULT NO.4 WITH VIT K 10 ML, TRACE (CONC-1ML/DOSE) 1 ML in AMINO ACID 5%-D15W+LYTE... IV SCH ×3 (17:14)
[2023-04-07 17:29] LABS: Glucose,Whole Blood 148 mg/dL (70-110)
[2023-04-07] MEDS: POTASSIUM BICARBONATE/CIT AC 20 MEQ TABLET.EFF NG-TUBE SCH ×2 (19:56→21:19)
[2023-04-07 20:02] LABS: Glucose,Whole Blood 133 mg/dL (70-110)
[2023-04-07] MEDS ORDERED: METOPROLOL TARTRATE 50 MG TAB PO STA (20:17)
[2023-04-07] MEDS: NOREPINEPHRINE 32 MG in SODIUM CHLORIDE 0.9% 218 ML IV SCH (20:20)
[2023-04-07 21:06] LABS: Glucose,Whole Blood 131 mg/dL (70-110)
[2023-04-07] MEDS: VASOPRESSIN 60 UNIT in SODIUM CHLORIDE 0.9% 150 ML IV SCH (21:19)
[2023-04-07 22:05] LABS: Glucose,Whole Blood 135 mg/dL (70-110)
[2023-04-07 22:57] LABS: Glucose,Whole Blood 142 mg/dL (70-110)
[2023-04-08] MEDS: IPRATROPIUM-ALBUTEROL 3 ML NEB INHALATION SCH ×6 (00:06→19:53)
[2023-04-08 00:20] LABS: Glucose,Whole Blood 159 mg/dL (70-110)
[2023-04-08] MEDS: HYDROmorphone 1 MG/ML 1 ML SYRINGE IVP PRN (00:27)
[2023-04-08] MEDS ORDERED: POTASSIUM BICARBONATE/CIT AC 20 MEQ TABLET.EFF NG-TUBE SCH ×2 (01:00→20:00)
[2023-04-08 01:07] LABS: Glucose,Whole Blood 164 mg/dL (70-110)
[2023-04-08] MEDS: INSULIN REGULAR 100 UNIT in SODIUM CHLORIDE 0.9% 100 ML IV SCH ×3 (01:08→23:55)
[2023-04-08] MEDS ORDERED: METOPROLOL TARTRATE 50 MG TAB PO STA (01:19)
[2023-04-08 02:06] LABS: Glucose,Whole Blood 147 mg/dL (70-110)
[2023-04-08] MEDS: DEXMEDETOMIDINE/0.9% NACL(PMX) 400 MCG in EMPTY BAG 1 BAG IV SCH ×2 (02:34→17:53)
[2023-04-08] MEDS: fentaNYL (PF). 1,000 MCG in SODIUM CHLORIDE 0.9% 80 ML IV SCH ×2 (02:34→22:07)
[2023-04-08 03:06] LABS: Glucose,Whole Blood 150 mg/dL (70-110)
[2023-04-08 03:59] LABS: Glucose,Whole Blood 143 mg/dL (70-110)
[2023-04-08 04:12] LABS: Anisocytosis Slight; Basophils % (A) 0 %; Eosinophils % (A) 0 %; HCT 29.1 % (34.0-46.0); HGB 9.8 gm/dL (11.4-16.0); Hypochromasia Slight; Lymphocytes # (A) 0.8 k/uL (1.0-4.8); Lymphocytes % (A) 6 %; MCH 33.6 pg (25.0-35.0); MCHC 33.5 g/dL (31.0-37.0); MCV 100.3 fL (80.0-100.0); Macrocytosis Slight; Mean Platelet Volume 8.6; Monocytes # (A) 0.4 k/uL (0-1.0); Monocytes % (A) 3 %; Neutrophils # (A) 11.7 k/uL (1.3-7.7); Neutrophils % (A) 89 %; Platelet Count 370 k/uL (150-450); Poikilocytosis Slight; RDW 17.2 % (11.5-15.5); WBC 13.1 k/uL (3.8-10.6)
[2023-04-08 04:19] LABS: African American GFR (CKD) 87 (>60 ml/min/1.73 sqM); Anion Gap 2 mmol/L; Blood Urea Nitrogen 31 mg/dL (7-17); Calcium 7.7 mg/dL (8.4-10.2); Carbon Dioxide 34 mmol/L (22-30); Chloride 108 mmol/L (98-107); Glucose 135 mg/dL (74-99); Magnesium 2.1 mg/dL (1.6-2.3); Non-African American GFR(CKD) 75 (>60 ml/min/1.73 sqM); Potassium 4.3 mmol/L (3.5-5.1); Sodium 144 mmol/L (137-145)
[2023-04-08 04:58] LABS: Glucose,Whole Blood 138 mg/dL (70-110)
[2023-04-08 05:49] LABS: ABG Base Excess 8.1 mmol/L; ABG HCO3 31 mmol/L (21-25); ABG Oxygen Saturation 97.8 % (94-97); ABG PCO2 39 mmHg (35-45); ABG PH 7.51 (7.35-7.45); ABG PO2 94 mmHg (83-108); ABG TCO2 32 mmol/L (19-24); Allen Test Performed? Yes
[2023-04-08 06:16] LABS: Glucose,Whole Blood 103 mg/dL (70-110)
[2023-04-08] MEDS: METOCLOPRAMIDE 5 MG/ML 2 ML VIAL IVP SCH ×3 (07:00→18:50)
[2023-04-08 07:05] LABS: Glucose,Whole Blood 128 mg/dL (70-110)
[2023-04-08 07:56] LABS: Glucose,Whole Blood 147 mg/dL (70-110)
--- NOTE | 2023-04-08 08:23 | P.PN ---
Subjective Progress Note Date: 04/06/23 Principal diagnosis: Sepsis/pneumonia Patient is a 73-year-old female electively admitted to the hospital 03/21/2023 and this patient who is s/p extensive thoracolumbar spine surgery in this patient who is status post L2-L5 deformity correction did have a L2-S1 interbody fusion and T10-L2 posterior lateral instrumented fusion,patient did have postoperative CSF leak status post complex T10 posterior decompression fusion with dural repair postoperatively the patient did have a respiratory distress requiring intubation and admission to the ICU. On today's evaluation that is 04/06/2023 the patient is afebrile, hemodynamically stable off the pressor support FiO2 is down to 40% no significant purulent secretion through the ED or any other changes reported by the nursing staff. The patient white count is 18.4 slightly lower than yesterday of 18.9 creatinine 0.87 blood culture negative sputum is Enterobacter and Klebsiella Patient did have CT angiogram of the chest that was negative for PE did shows multifocal groundglass opacities, CT abdomen and pelvis was consistent with ileus and no evidence of perforation Objective - Vital Signs Vital signs: Vital Signs Temp 98.5 F 04/06/23 08:30 Pulse 82 04/06/23 12:33 Resp 28 H 04/06/23 11:00 BP 120/47 04/05/23 09:06 Pulse Ox 99 04/06/23 11:00 FiO2 40 04/06/23 11:59 Intake & Output 04/05/23 04/06/23 04/06/23 18:59 06:59 18:59 Intake Total 1805.595 512.418 563.623 Output Total 2950 4490 2270 Balance -1144.405 -3977.582 -1706.377 Weight 108.5 kg 127.4 kg Intake: IV 196 143 330 0.9NS 60 110 20 0.9NS Pressure Bag 36 33 15 Mvi, Adult No.4 with Vit 120 K 10 ml Trace (Conc-1Ml/ Dose) 1 ml In Amino Acid 5%-D15w+Lytes*E* 1,000 ml @ 30 mls/hr IV .Q24H [facility] Rx#:[id number] Piperacillin-Tazobactam 3 100 75 .375 gm In Sodium Chloride 0.9% 100 ml @ 25 mls/hr IVPB Q8HR [facility] Rx# :[id number] Potassium Chloride 10 meq 100 In Water For Injection 1 100ml.bag @ 100 mls/hr IVPB Q1HR [facility] Rx#: [id number] Intake, IV Titration 1299.595 369.418 233.623 Amount Dextrose 5% in Water 1, 150 000 ml @ 75 mls/hr IV . [id number] [facility] with Sodium Bicarb (1 Meq/ml) 150 ml Rx#:[id number] Insulin Regular 100 unit 46.207 41.731 32.808 In Sodium Chloride 0.9% 100 ml @ Per Protocol IV .Q0M [facility] Rx#:[id number] Magnesium Sulfate-D5w Pmx 200 1 gm In Dextrose/Water 1 100ml.bag @ 100 mls/hr IVPB Q1H [facility] Rx#: [id number] Mvi, Adult No.4 with Vit 60 30 K 10 ml Trace (Conc-1Ml/ Dose) 1 ml In Amino Acid 5%-D15w+Lytes*E* 1,000 ml @ 30 mls/hr IV .Q24H [facility] Rx#:[id number] Mvi, Adult No.4 with Vit 30 K 10 ml Trace (Conc-1Ml/ Dose) 1 ml In Amino Acid 5%-D15w+Lytes*E* 1,000 ml @ 45 mls/hr IV .[id number] [facility] Rx#:[id number] Norepinephrine 32 mg In 0 4.785 Sodium Chloride 0.9% 218 ml @ 0.03 MCG/KG/MIN 1. 364 mls/hr IV .Q24H [facility] Rx#:[id number] Potassium Chloride 10 meq 300 In Water For Injection 1 100ml.bag @ 100 mls/hr IVPB Q1HR [facility] Rx#: [id number] Potassium Chloride 20 meq 200 In Water For Injection 1 100ml.bag @ 50 mls/hr IVPB Q2H [facility] Rx#: [id number] Vasopressin 60 unit In 17.213 Sodium Chloride 0.9% 150 ml @ 0.04 UNITS/MIN 6.12 mls/hr IV .Q24H [facility] Rx#: [id number] fentaNYL (PF). 1,000 mcg 49.227 95.061 100 In Sodium Chloride 0.9% 80 ml @ 0.5 MCG/KG/HR 5. 12 mls/hr IV .[id number] [facility] Rx#:[id number] propofoL 1,000 mg In 246.948 202.626 96.030 Empty Bag 1 bag @ 15 MCG/ KG/MIN 8.73 mls/hr IV . [id number] [facility] Rx#:[id number] Blood Product 310 Rc As-1 Unit 310 [id number] Output: Gastric Drainage 600 Urine 2350 4490 2270 Other: Voiding Method Indwelling Catheter Indwelling Catheter Indwelling Catheter # Bowel Movements 1 ABP, PAP, CO, CI - Last Documented Arterial Blood Pressure 164/60 - Exam GENERAL DESCRIPTION: An elderly female intubated on the vent RESPIRATORY SYSTEM: Unlabored breathing , decreased breath sounds at bases HEART: S1 S2 regular rate and rhythm , ABDOMEN: Soft , no tenderness EXTREMITIES: Bilateral lower extremity swelling no redness - Labs CBC & Chem 7: 04/08/23 03:58 04/08/23 03:58 Labs: Abnormal Lab Results - Last 24 Hours (Table) 04/05/23 04/05/23 04/05/23 Range/Units 12:19 13:58 15:21 WBC 18.9 H (3.8-10.6) k/uL RBC 2.54 L (3.80-5.40) m/uL Hgb 8.5 L D (11.4-16.0) gm/dL Hct 24.4 L (34.0-46.0) % RDW (11.5-15.5) % Neutrophils # (Manual) 15.40 H (1.3-7.7) k/uL Metamyelocytes # (Man) 0.57 H (0) k/uL Myelocytes # (Manual) 0.57 H (0) k/uL Nucleated RBCs 1 H (0-0) /100 WBC ABG pH (7.35-7.45) ABG pO2 (83-108) mmHg ABG HCO3 (21-25) mmol/L ABG Total CO2 (19-24) mmol/L Sodium (137-145) mmol/L BUN (7-17) mg/dL Glucose (74-99) mg/dL POC Glucose (mg/dL) 122 H 131 H (70-110) mg/dL Calcium (8.4-10.2) mg/dL Phosphorus (2.5-4.5) mg/dL Albumin (3.5-5.0) g/dL 04/05/23 04/05/23 04/05/23 Range/Units 17:10 18:31 21:13 WBC (3.8-10.6) k/uL RBC (3.80-5.40) m/uL Hgb (11.4-16.0) gm/dL Hct (34.0-46.0) % RDW (11.5-15.5) % Neutrophils # (Manual) (1.3-7.7) k/uL Metamyelocytes # (Man) (0) k/uL Myelocytes # (Manual) (0) k/uL Nucleated RBCs (0-0) /100 WBC ABG pH (7.35-7.45) ABG pO2 (83-108) mmHg ABG HCO3 (21-25) mmol/L ABG Total CO2 (19-24) mmol/L Sodium (137-145) mmol/L BUN (7-17) mg/dL Glucose (74-99) mg/dL POC Glucose (mg/dL) 155 H 147 H 126 H (70-110) mg/dL Calcium (8.4-10.2) mg/dL Phosphorus (2.5-4.5) mg/dL Albumin (3.5-5.0) g/dL 04/05/23 04/05/23 04/06/23 Range/Units 21:45 22:39 00:51 WBC (3.8-10.6) k/uL RBC (3.80-5.40) m/uL Hgb (11.4-16.0) gm/dL Hct (34.0-46.0) % RDW (11.5-15.5) % Neutrophils # (Manual) (1.3-7.7) k/uL Metamyelocytes # (Man) (0) k/uL Myelocytes # (Manual) (0) k/uL Nucleated RBCs (0-0) /100 WBC ABG pH (7.35-7.45) ABG pO2 (83-108) mmHg ABG HCO3 (21-25) mmol/L ABG Total CO2 (19-24) mmol/L Sodium (137-145) mmol/L BUN (7-17) mg/dL Glucose (74-99) mg/dL POC Glucose (mg/dL) 123 H 129 H 167 H (70-110) mg/dL Calcium (8.4-10.2) mg/dL Phosphorus (2.5-4.5) mg/dL Albumin (3.5-5.0) g/dL 04/06/23 04/06/23 04/06/23 Range/Units 02:30 03:35 03:35 WBC 18.4 H (3.8-10.6) k/uL RBC 2.66 L (3.80-5.40) m/uL Hgb 8.9 L (11.4-16.0) gm/dL Hct 25.8 L (34.0-46.0) % RDW 15.8 H (11.5-15.5) % Neutrophils # (Manual) 15.00 H (1.3-7.7) k/uL Metamyelocytes # (Man) 0.55 H (0) k/uL Myelocytes # (Manual) (0) k/uL Nucleated RBCs (0-0) /100 WBC ABG pH (7.35-7.45) ABG pO2 (83-108) mmHg ABG HCO3 (21-25) mmol/L ABG Total CO2 (19-24) mmol/L Sodium 136 L (137-145) mmol/L BUN 26 H (7-17) mg/dL Glucose 159 H (74-99) mg/dL POC Glucose (mg/dL) 149 H (70-110) mg/dL Calcium 7.7 L (8.4-10.2) mg/dL Phosphorus 2.4 L (2.5-4.5) mg/dL Albumin 2.2 L (3.5-5.0) g/dL 04/06/23 04/06/23 04/06/23 Range/Units 04:52 06:30 08:31 WBC (3.8-10.6) k/uL RBC (3.80-5.40) m/uL Hgb (11.4-16.0) gm/dL Hct (34.0-46.0) % RDW (11.5-15.5) % Neutrophils # (Manual) (1.3-7.7) k/uL Metamyelocytes # (Man) (0) k/uL Myelocytes # (Manual) (0) k/uL Nucleated RBCs (0-0) /100 WBC ABG pH 7.51 H (7.35-7.45) ABG pO2 74 L (83-108) mmHg ABG HCO3 29 H (21-25) mmol/L ABG Total CO2 30 H (19-24) mmol/L Sodium (137-145) mmol/L BUN (7-17) mg/dL Glucose (74-99) mg/dL POC Glucose (mg/dL) 139 H 159 H (70-110) mg/dL Calcium (8.4-10.2) mg/dL Phosphorus (2.5-4.5) mg/dL Albumin (3.5-5.0) g/dL 04/06/23 04/06/23 04/06/23 Range/Units 09:08 10:07 11:04 WBC (3.8-10.6) k/uL RBC (3.80-5.40) m/uL Hgb (11.4-16.0) gm/dL Hct (34.0-46.0) % RDW (11.5-15.5) % Neutrophils # (Manual) (1.3-7.7) k/uL Metamyelocytes # (Man) (0) k/uL Myelocytes # (Manual) (0) k/uL Nucleated RBCs (0-0) /100 WBC ABG pH (7.35-7.45) ABG pO2 (83-108) mmHg ABG HCO3 (21-25) mmol/L ABG Total CO2 (19-24) mmol/L Sodium (137-145) mmol/L BUN (7-17) mg/dL Glucose (74-99) mg/dL POC Glucose (mg/dL) 142 H 125 H 125 H (70-110) mg/dL Calcium (8.4-10.2) mg/dL Phosphorus (2.5-4.5) mg/dL Albumin (3.5-5.0) g/dL 04/06/23 Range/Units 12:05 WBC (3.8-10.6) k/uL RBC (3.80-5.40) m/uL Hgb (11.4-16.0) gm/dL Hct (34.0-46.0) % RDW (11.5-15.5) % Neutrophils # (Manual) (1.3-7.7) k/uL Metamyelocytes # (Man) (0) k/uL Myelocytes # (Manual) (0) k/uL Nucleated RBCs (0-0) /100 WBC ABG pH (7.35-7.45) ABG pO2 (83-108) mmHg ABG HCO3 (21-25) mmol/L ABG Total CO2 (19-24) mmol/L Sodium (137-145) mmol/L BUN (7-17) mg/dL Glucose (74-99) mg/dL POC Glucose (mg/dL) 148 H (70-110) mg/dL Calcium (8.4-10.2) mg/dL Phosphorus (2.5-4.5) mg/dL Albumin (3.5-5.0) g/dL Assessment and Plan (1) Sepsis Current Visit: Yes Status: Acute Code(s): A41.9 - SEPSIS, UNSPECIFIED ORGANISM SNOMED Code(s): 73642888 (2) Gram-negative pneumonia Current Visit: Yes Status: Acute Code(s): J15.6 - PNEUMONIA DUE TO OTHER GRAM-NEGATIVE BACTERIA SNOMED Code(s): 561747368 (3) Leukocytosis Current Visit: Yes Status: Acute Code(s): D72.829 - ELEVATED WHITE BLOOD CELL COUNT, UNSPECIFIED SNOMED Code(s): 309338646 Plan: 1patient with a sepsis/septic shock in this patient with fever elevated white count hypertension tachycardia is source likely aspiration pneumonia likely gram-negative with a sputum currently growing Klebsiella and Enterobacter with some resistant pattern, patient did have a CSF leak and did have extensive T10- S1 spine surgery underlying meningitis less likely but not entirely excluded 2-patient fever pattern has improved and the patient white count is elevated and more likely steroid related, will be monitored closely 3-With the clinical picture mostly of ileus as well as pneumonia possible aspiration patient to continue with Zosyn and continue with supportive care Family at the bedside questions were answered Dictation was produced using [employer] dictation software. please excuse any gr ammatical, word or spelling errors. Time with Patient: Less than 30
--- NOTE | 2023-04-08 08:25 | P.PN ---
Subjective Progress Note Date: 04/07/23 Principal diagnosis: Sepsis/pneumonia Patient is a 73-year-old female electively admitted to the hospital 03/21/2023 and this patient who is s/p extensive thoracolumbar spine surgery in this patient who is status post L2-L5 deformity correction did have a L2-S1 interbody fusion and T10-L2 posterior lateral instrumented fusion,patient did have postoperative CSF leak status post complex T10 posterior decompression fusion with dural repair postoperatively the patient did have a respiratory distress requiring intubation and admission to the ICU. On today's evaluation that is 04/07/2023, the patient remains to be afebrile, the patient is hemodynamically stable off of pressor support FiO2 is currently stable at 40% with no significant purulent secretion through the ET or any other changes has been reported patient has been taken off sedation. Patient white count is down to 17.9 hemoglobin is 9.3 creatinine 0.[address] angiogram of the chest that was negative for PE did shows multifocal groundglass opacities, CT abdomen and pelvis was consistent with ileus and no evidence of perforation Objective - Vital Signs Vital signs: Vital Signs Temp 98.5 F 04/07/23 12:00 Pulse 87 04/07/23 12:00 Resp 29 H 04/07/23 12:00 BP 120/47 04/05/23 09:06 Pulse Ox 93 L 04/07/23 12:00 FiO2 40 04/07/23 12:00 Intake & Output 04/06/23 04/07/23 04/07/23 18:59 06:59 18:59 Intake Total 1464.391 906.655 224.006 Output Total 6070 2260 3325 Balance -4605.609 -1353.345 -3100.994 Weight 127.1 kg 127.1 kg Intake: IV 1094.0 848 133 0.9NS 80 220 70 0.9NS Pressure Bag 39 33 18 Mvi, Adult No.4 with Vit 240 K 10 ml Trace (Conc-1Ml/ Dose) 1 ml In Amino Acid 5%-D15w+Lytes*E* 1,000 ml @ 30 mls/hr IV .Q24H [facility] Rx#:[id number] Mvi, Adult No.4 with Vit 180 495 45 K 10 ml Trace (Conc-1Ml/ Dose) 1 ml In Amino Acid 5%-D15w+Lytes*E* 1,000 ml @ 45 mls/hr IV .[id number] [facility] Rx#:[id number] Piperacillin-Tazobactam 3 200 100 .375 gm In Sodium Chloride 0.9% 100 ml @ 25 mls/hr IVPB Q8HR [facility] Rx# :[id number] Potassium Chloride 10 meq 100 In Water For Injection 1 100ml.bag @ 100 mls/hr IVPB Q1HR [facility] Rx#: [id number] Sodium Phosphate 15 mmol 255.0 In Dextrose 5% in Water 250 ml @ 127.5 mls/hr IVPB ONCE [facility] Rx#: [id number] Intake, IV Titration 370.391 58.655 51.006 Amount Clevidipine Butyrate 25 26.767 30.2 mg In Empty Bag 1 bag @ 1 MG/HR 2 mls/hr IV .Q24H [facility] Rx#:[id number] Insulin Regular 100 unit 72.174 58.655 20.806 In Sodium Chloride 0.9% 100 ml @ Per Protocol IV .Q0M [facility] Rx#:[id number] Norepinephrine 32 mg In 4.785 Sodium Chloride 0.9% 218 ml @ 0.03 MCG/KG/MIN 1. 364 mls/hr IV .Q24H [facility] Rx#:[id number] Vasopressin 60 unit In 70.635 Sodium Chloride 0.9% 150 ml @ 0.04 UNITS/MIN 6.12 mls/hr IV .Q24H [facility] Rx#: [id number] fentaNYL (PF). 1,000 mcg 100 In Sodium Chloride 0.9% 80 ml @ 0.5 MCG/KG/HR 5. 12 mls/hr IV .[id number] [facility] Rx#:[id number] propofoL 1,000 mg In 96.030 Empty Bag 1 bag @ 15 MCG/ KG/MIN 8.73 mls/hr IV . [id number] [facility] Rx#:[id number] Tube Feeding 40 Output: Urine 6070 2260 3325 Other: Voiding Method Indwelling Catheter Indwelling Catheter ABP, PAP, CO, CI - Last Documented Arterial Blood Pressure 151/44 - Exam GENERAL DESCRIPTION: An elderly female intubated on the vent RESPIRATORY SYSTEM: Unlabored breathing , decreased breath sounds at bases HEART: S1 S2 regular rate and rhythm , ABDOMEN: Soft , no tenderness EXTREMITIES: Bilateral lower extremity swelling no redness - Labs CBC & Chem 7: 04/08/23 03:58 04/08/23 03:58 Labs: Abnormal Lab Results - Last 24 Hours (Table) 04/02/23 04/06/23 04/06/23 Range/Units 11:42 13:01 14:29 WBC (3.8-10.6) k/uL RBC (3.80-5.40) m/uL Hgb (11.4-16.0) gm/dL Hct (34.0-46.0) % RDW (11.5-15.5) % Neutrophils # (Manual) (1.3-7.7) k/uL Metamyelocytes # (Man) (0) k/uL Myelocytes # (Manual) (0) k/uL Nucleated RBCs (0-0) /100 WBC ABG pH (7.35-7.45) ABG pO2 (83-108) mmHg ABG HCO3 (21-25) mmol/L ABG Total CO2 (19-24) mmol/L Sodium (137-145) mmol/L Potassium (3.5-5.1) mmol/L Chloride (98-107) mmol/L Carbon Dioxide (22-30) mmol/L BUN (7-17) mg/dL Glucose (74-99) mg/dL POC Glucose (mg/dL) 153 H 188 H (70-110) mg/dL Calcium (8.4-10.2) mg/dL Crossmatch See Detail 04/06/23 04/06/23 04/06/23 Range/Units 15:02 15:08 16:23 WBC (3.8-10.6) k/uL RBC (3.80-5.40) m/uL Hgb (11.4-16.0) gm/dL Hct (34.0-46.0) % RDW (11.5-15.5) % Neutrophils # (Manual) (1.3-7.7) k/uL Metamyelocytes # (Man) (0) k/uL Myelocytes # (Manual) (0) k/uL Nucleated RBCs (0-0) /100 WBC ABG pH (7.35-7.45) ABG pO2 (83-108) mmHg ABG HCO3 (21-25) mmol/L ABG Total CO2 (19-24) mmol/L Sodium (137-145) mmol/L Potassium (3.5-5.1) mmol/L Chloride (98-107) mmol/L Carbon Dioxide (22-30) mmol/L BUN (7-17) mg/dL Glucose (74-99) mg/dL POC Glucose (mg/dL) 194 H 168 H 162 H (70-110) mg/dL Calcium (8.4-10.2) mg/dL Crossmatch 04/06/23 04/06/23 04/06/23 Range/Units 17:02 18:53 19:49 WBC (3.8-10.6) k/uL RBC (3.80-5.40) m/uL Hgb (11.4-16.0) gm/dL Hct (34.0-46.0) % RDW (11.5-15.5) % Neutrophils # (Manual) (1.3-7.7) k/uL Metamyelocytes # (Man) (0) k/uL Myelocytes # (Manual) (0) k/uL Nucleated RBCs (0-0) /100 WBC ABG pH (7.35-7.45) ABG pO2 (83-108) mmHg ABG HCO3 (21-25) mmol/L ABG Total CO2 (19-24) mmol/L Sodium (137-145) mmol/L Potassium (3.5-5.1) mmol/L Chloride (98-107) mmol/L Carbon Dioxide (22-30) mmol/L BUN (7-17) mg/dL Glucose (74-99) mg/dL POC Glucose (mg/dL) 144 H 128 H 125 H (70-110) mg/dL Calcium (8.4-10.2) mg/dL Crossmatch 04/06/23 04/06/23 04/06/23 Range/Units 21:53 22:56 23:46 WBC (3.8-10.6) k/uL RBC (3.80-5.40) m/uL Hgb (11.4-16.0) gm/dL Hct (34.0-46.0) % RDW (11.5-15.5) % Neutrophils # (Manual) (1.3-7.7) k/uL Metamyelocytes # (Man) (0) k/uL Myelocytes # (Manual) (0) k/uL Nucleated RBCs (0-0) /100 WBC ABG pH (7.35-7.45) ABG pO2 (83-108) mmHg ABG HCO3 (21-25) mmol/L ABG Total CO2 (19-24) mmol/L Sodium (137-145) mmol/L Potassium (3.5-5.1) mmol/L Chloride (98-107) mmol/L Carbon Dioxide (22-30) mmol/L BUN (7-17) mg/dL Glucose (74-99) mg/dL POC Glucose (mg/dL) 125 H 155 H 191 H (70-110) mg/dL Calcium (8.4-10.2) mg/dL Crossmatch 04/07/23 04/07/23 04/07/23 Range/Units 01:24 02:39 03:03 WBC (3.8-10.6) k/uL RBC (3.80-5.40) m/uL Hgb (11.4-16.0) gm/dL Hct (34.0-46.0) % RDW (11.5-15.5) % Neutrophils # (Manual) (1.3-7.7) k/uL Metamyelocytes # (Man) (0) k/uL Myelocytes # (Manual) (0) k/uL Nucleated RBCs (0-0) /100 WBC ABG pH (7.35-7.45) ABG pO2 (83-108) mmHg ABG HCO3 (21-25) mmol/L ABG Total CO2 (19-24) mmol/L Sodium (137-145) mmol/L Potassium (3.5-5.1) mmol/L Chloride (98-107) mmol/L Carbon Dioxide (22-30) mmol/L BUN (7-17) mg/dL Glucose (74-99) mg/dL POC Glucose (mg/dL) 173 H 162 H 158 H (70-110) mg/dL Calcium (8.4-10.2) mg/dL Crossmatch 04/07/23 04/07/23 04/07/23 Range/Units 03:06 03:06 04:33 WBC 17.9 H (3.8-10.6) k/uL RBC 2.90 L (3.80-5.40) m/uL Hgb 9.3 L (11.4-16.0) gm/dL Hct 28.8 L (34.0-46.0) % RDW 17.4 H (11.5-15.5) % Neutrophils # (Manual) 16.10 H (1.3-7.7) k/uL Metamyelocytes # (Man) 0.36 H (0) k/uL Myelocytes # (Manual) 0.18 H (0) k/uL Nucleated RBCs 1 H (0-0) /100 WBC ABG pH (7.35-7.45) ABG pO2 (83-108) mmHg ABG HCO3 (21-25) mmol/L ABG Total CO2 (19-24) mmol/L Sodium 146 H (137-145) mmol/L Potassium 3.4 L (3.5-5.1) mmol/L Chloride 108 H (98-107) mmol/L Carbon Dioxide 31 H (22-30) mmol/L BUN 28 H (7-17) mg/dL Glucose 148 H (74-99) mg/dL POC Glucose (mg/dL) 136 H (70-110) mg/dL Calcium 7.9 L (8.4-10.2) mg/dL Crossmatch 04/07/23 04/07/23 04/07/23 Range/Units 05:59 06:28 07:13 WBC (3.8-10.6) k/uL RBC (3.80-5.40) m/uL Hgb (11.4-16.0) gm/dL Hct (34.0-46.0) % RDW (11.5-15.5) % Neutrophils # (Manual) (1.3-7.7) k/uL Metamyelocytes # (Man) (0) k/uL Myelocytes # (Manual) (0) k/uL Nucleated RBCs (0-0) /100 WBC ABG pH 7.46 H (7.35-7.45) ABG pO2 81 L (83-108) mmHg ABG HCO3 30 H (21-25) mmol/L ABG Total CO2 31 H (19-24) mmol/L Sodium (137-145) mmol/L Potassium (3.5-5.1) mmol/L Chloride (98-107) mmol/L Carbon Dioxide (22-30) mmol/L BUN (7-17) mg/dL Glucose (74-99) mg/dL POC Glucose (mg/dL) 139 H 133 H (70-110) mg/dL Calcium (8.4-10.2) mg/dL Crossmatch 04/07/23 04/07/23 Range/Units 09:02 12:10 WBC (3.8-10.6) k/uL RBC (3.80-5.40) m/uL Hgb (11.4-16.0) gm/dL Hct (34.0-46.0) % RDW (11.5-15.5) % Neutrophils # (Manual) (1.3-7.7) k/uL Metamyelocytes # (Man) (0) k/uL Myelocytes # (Manual) (0) k/uL Nucleated RBCs (0-0) /100 WBC ABG pH (7.35-7.45) ABG pO2 (83-108) mmHg ABG HCO3 (21-25) mmol/L ABG Total CO2 (19-24) mmol/L Sodium (137-145) mmol/L Potassium (3.5-5.1) mmol/L Chloride (98-107) mmol/L Carbon Dioxide (22-30) mmol/L BUN (7-17) mg/dL Glucose (74-99) mg/dL POC Glucose (mg/dL) 121 H 129 H (70-110) mg/dL Calcium (8.4-10.2) mg/dL Crossmatch Assessment and Plan (1) Sepsis Current Visit: Yes Status: Acute Code(s): A41.9 - SEPSIS, UNSPECIFIED O RGANISM SNOMED Code(s): 56399075 (2) Gram-negative pneumonia Current Visit: Yes Status: Acute Code(s): J15.6 - PNEUMONIA DUE TO OTHER GRAM-NEGATIVE BACTERIA SNOMED Code(s): 579366982 (3) Leukocytosis Current Visit: Yes Status: Acute Code(s): D72.829 - ELEVATED WHITE BLOOD CELL COUNT, UNSPECIFIED SNOMED Code(s): 930490263 Plan: 1patient with a sepsis/septic shock in this patient with fever elevated white count hypertension tachycardia is source likely aspiration pneumonia likely gram-negative with a sputum currently growing Klebsiella and Enterobacter with some resistant pattern, patient did have a CSF leak and did have extensive T10- S1 spine surgery underlying meningitis less likely but not entirely excluded 2-patient fever pattern has improved and the patient white count is elevated and more likely steroid related, will be monitored closely 3Patient seemed to have some improvement the patient fever has resolved, clinical picture mostly of ileus as well as pneumonia possible aspiration patient to continue with Zosyn and continue with supportive care Family at the bedside questions were answered Dictation was produced using [employer] dictation software. please excuse any gramma tical, word or spelling errors. Time with Patient: Less than 30
--- NOTE | 2023-04-08 08:30 | P.PN ---
Subjective Progress Note Date: 04/08/23 Respiratory failure. Patient is a 72-year-old female with past medical history significant for chronic back pain and lumbar radiculopathy, diabetes mellitus type 2, hyperlipidemia, hypertension. Patient has been complaining of lumbar radiculopathy like symptoms earlier this year, and was evaluated by Dr. Duong. She was found to have multilevel spondylosis and spondylolisthesis. She underwent an elective T10 to pelvis decompression and fusion . The initial surgery was done on 03/21/2023. Subsequently, the patient continued to have CSF leak following a complex he 10 decompression fusion and the patient underwent a ureteral repair with a patch graft. This was done on 03/29/2023. On today's evaluation of 04/03/2023, the patient remains intubated on a mechanical ventilator. The patient has been intubated since 03/29/2023. She has an acute hypoxic respiratory failure/bilateral pneumonia/ARDS in addition to hypotension/sepsis. She remains on mechanical ventilator and the splinter assist-control mode rate of 32, tidal volume 400, FiO2 of 60% with a PEEP of 15. Peak airway pressure is 38. They static airway pressure is 34. The chest x- ray from today shows diffuse bilateral pulmonary infiltrates. The patient has a triple-lumen catheter in her right IJ. ET tube seems to be high in the trachea. No evidence of any pleural effusion and there is diffuse consolidation. There is hardware also involving the thoracolumbar spine. At the same time, the patient has a pH of 7.21 with a pCO2 of 43 and pO2 of 89. She is currently sedated and she is on propofol running at 50 mcg/kg/m and fentanyl running at 2 mcg/kg/h the patient is also on paralytics and she is on Nimbex at 3 mcg/kg/m. IV fluids running at KVO. Cardiac rhythm is sinus and the patient remains on amiodarone drip at 0.5 mg/m maintenance. The patient is fully sedated and paralyzed this point in time. IV fluids are at 20 mL an hour and the patient remains on pressors. She is on physiologic dose of vasopressin at 0.04 units an hour and the patient is also on norepinephrine running at 0.08 mcg/kg/m. She has an arterial line in the right brachial. She has a triple-lumen catheter in the right IJ. In terms of her blood work, the patient has a white cell count of 17 with a hemoglobin of 8.3 and a platelet count of 212. Sodium is at 134, potassium is at 4.2, bicarb is at 17, BUN is at 19 with a creatinine of 0.8. Her microbiology from the sputum indicated presence of Enterobacter and Klebsiella. The patient is currently covered with antibiotics and she is on IV cefepime. She is also on vancomycin. The most recent vancomycin trough from yesterday was 15. Urine output is in order of 50 mL an hour and overall fluid balance over the past 24 hours has been +700 mL. The patient has been ess entially in a positive fluid balance over the past several days. The patient is on enteral feeding for nutritional support and currently she is on hold as the patient is having higher residuals. Most recent CT angiogram of the chest that was done on 04/02/2023 showed multifocal groundglass pulmonary opacities and bibasilar consolidation consistent with pneumonia and there is also small pleural effusions and postsurgical changes involving the spine. CAT scan of the abdomen and pelvis was also done on 04/02/2023 and was consistent with ileus. No evidence of any perforation. No evidence of any mechanical obstruction as the patient did not have any focal transition point and contrast was de monstrated throughout the bowel extending to sigmoid colon. There is evidence of sigmoid diverticulosis without evidence of diverticulitis. There is diffuse anasarca. Echo of the heart was done on 03/29/2023 showed normal LV with an ejection fraction of 6065%, there is mild to moderate pulmonary hypertension with mild tricuspid regurgitation. 04/04/2023, the patient remains intubated on a mechanical ventilator. She is currently off paralytics and she is sedated with propofol which is running at a dose of 45 V per kilogram per minute and she is also on fentanyl running at 1.5 mcg/kg/h. The patient is quite seclusive mechanical ventilator. Chest x-ray still showing diffuse bilateral pulmonary infiltrates consistent with pneumonia/ARDS. Nevertheless, there is interval improvement in oxygenation. Today, the patient is on assist-control mode at the rate of 32, tidal volume of 400, FiO2 of 50% with a PEEP of 12. The blood gas that was done on this current setting shows a pH of 7.31 with a pCO2 42 and pO2 of 186. As such, there is improvement in the oxygenation. The peak airway pressure is currently at 30. The static airway pressure is currently at 24. The patient remains on pressors although at a lower dose. Vasopressin is physiologic at 0.04 units an minutes and the patient is also on norepinephrine at 0.01 g hospital kilogram per minutes. The patient remains on amiodarone drip throughout the night and currently her rhythm is sinus and amiodarone drip was discontinued this morning. Feeding was held yesterday because of increased residuals. She does have a com ponent of ileus. She remains on Reglan. NG tube output is 3 50 mL overnight the patient was also started on methyl naltrexone 12 mg for bowel motility. The rest of the blood work shows a white cell count of 15 with a hemoglobin of 7.8 and a platelet count of 183. The sodium is at 131, BUN is at 20 with a creatinine of 0.7. Serum bicarb is up to 20. IV fluids are as a former bicarb infusion rate of 75 mL an hour. She was started on insulin drip for blood sugar control as the patient's blood sugar was quite elevated while being on systemic steroids. She remains on IV Zosyn. No other significant events overnight. Overall fluid balance over the past 24 hours has been in the order of -143 mL and the patient is receiving Lasix at a dose of 20 mg every 12 hours. 04/05/2023, the patient is being seen for a follow-up. She remains intubated on a mechanical ventilator. She is off paralytics and she is on a combination of propofol and fentanyl. Propofol is running at 45 maximum hospital kilogram per minute and fentanyl is running at 1 mcg/kg/h. The patient is on assist-control mode of mechanical ventilation at the rate of 32, tidal volume of 400, FiO2 of 40% with a PEEP of 10. Blood gas from today shows a pH of 7.46 with a pCO2 of 36 and pO2 of 115 and there is progressive improvement in the patient's oxygenation. The chest x-ray from today shows diffuse bilateral pulmonary infiltrates and bilateral pleural effusions slightly worse on the left. Orotracheal tube is in a good location. No evidence of any pneumothorax. No other major abnormalities. The patient is a triple-lumen catheter in her right internal jugular vein. Hemodynamically, the patient is off pressors. This was discontinued yesterday. The patient is currently on IV Lasix. She is producing good urine output and she is still and a positive fluid balance over the past 24 hours. She is currently on Lasix at a dose of 40 mg IV every 12 hours. She is also on a bicarb infusion as the patient is a component of melena negative metabolic acidosis. Serum bicarb is improved and the serum bicarbs up to 24 and a bicarb infusion will be discontinued today. Renal function is stable. The patient had a drop in hemoglobin down to 6.9 at today's evaluation. The white cell count at 17.2. Platelet counts are 226. Overall serum iron is at 53. The patient remains on bronchodilators, systemic steroids and IV Solu-Medrol 40 mg every 12 hours. She is on insulin drip which is running at 5 units an hour and the patient is covered with IV Zosyn regarding kilogram negative pneumonia. Another active issue is her ongoing difficulties with ileus and absent bowel movement activity. The patient has persistent air distention of the colon based on the most recent 5, the abdomen was as yesterday and there is slight improvement compared to the earlier films with the cecum now distended up to 8.1 cm compared to 9.1 cm. The angina output is in order of 500 mL overnight and the patient remains nothing by mouth for now. 04/06/2023 the patient is being seen for a follow-up. The patient is sedated on a combination of propofol and fentanyl. Propofol is at 40 mcg/kg/m and fentanyl still running at 1 mcg/kg/h. She is off paralytics. This morning, she was also taken off the pressors. Chest x-ray still showing diffuse but the pulmonary infiltrates/ARDS. Nevertheless, there has been improvement in oxygenation. The PEEP was gradually weaned down to 8 and the patient remains in respiratory rate of 32, tidal volume of 400 with an FiO2 of 40%. A chest x-ray is showing stable bilateral pulmonary infiltrates. The blood gas from today shows a pH of 7.51 with a pCO2 of 36 and pO2 of 74. The patient is being diuresed with IV Lasix 40 mg every 8 hours. The fluid balance is negative at least 5.1 L over the past 24 hours. The edema has improved both in the upper and lower extremity speech is producing adequate urine output. Note that she also started stooling. She had small bowel movements yesterday total of 3. We were having difficulties in treating this patient and she was started on TPN for nutritional support. She is also on insulin drip at 4 units an hour for blood sugar control. The white cell cause of 18.4 with a hemoglobin of 8.9. Platelet count is at 310. The BUN is at 26 with a creatinine of 0.8 and a sodium level is at 136. Potassium levels at 3.7 and we are chasing and replacing the potassium supplements. The peak airway pressure is down to 27. No other significant events overnight. She remains on IV Zosyn. She remains on steroids. Her cardiac rhythm is sinus and she is on oral amiodarone. 23, I'm seeing the patient for a follow-up. The patient remains intubated on a mechanical ventilator. As of yesterday, we started weaning off sedation this morning the patient is off propofol and off fentanyl. She is opening her eyes pH is still not following any commands. Nevertheless, she is quite comfortable on a mechanical ventilator. No agitation. No restlessness. We are sending the process of monitoring her neurologic recovery off the sedation. Noted the patient has taken massive amounts of sedation and she was paralyzed earlier. She remains on assist-control mode at a rate of 24, tidal volume of 400, FiO2 is down to 40% and the PEEP is down to 5. Blood gas shows a pH of 7.46 with a pCO2 of 43 and pO2 of 81. The chest x-ray is showing no major interval change with diffuse bilateral pulmonary infiltrates. All of the lites are still in place. Hemodynamically she is stable. She is off pressors. She is on insulin drip at 6 units an hour. She is on TPN. Enteral feeding was started again as the patient started having some bowel movement with activity and stool. Will monitor individuals. He is on vital high-protein at the rate of 10 mL an hour and this is being gradually advanced. Meanwhile, WBC count is at 17.9, hemoglobin is at 9.3 and the platelet is at 370. Sodium is at 146 and the patient is being aggressively diuresed. She is in a negative fluid balance of at least 5 L over the past 24 hours. The BUN is at 28 with a creatinine of 0.8. The patient is receiving Lasix 40 mg IV every 12 hours. Cardiac rhythm is sinus. Potassium is being replaced. Antibiotics has been continued and the patient remains on IV Zosyn. On a 04/08/2023 ,the patient is awake and alert and she is communicating. She remains on a mechanical ventilator. The patient's is wiggling her toes. She is barely moving her fingers. She does have a good cough and a gag. She is profoundly weak. She is arousable, she responds, she grimaces, she communicates. She is assist-control mode of mechanical ventilation. She is off sedation for now. The patient has been off sedation for more than 48 hours. She is on assist-control mode of mechanical ventilation at the rate of 24, tidal volume of 400, FiO2 of 40% with a PEEP of 5. Chest x-ray shows improvement of bilateral pulmonary infiltrates although that is residual consolidation bilaterally. The chest x-ray was reviewed. The blood gas shows a pH of 7.51 with a pCO2 of 39 and a pO2 of 94 and this was done FiO2 40% with a PEEP of 5. The patient's fluid balance has been -5 L over the past 24 hours. She has developed some metabolic alkalosis. Serum bicarbs of 234. BUN is at 31 with a creatinine of 0.7. Sodium levels of 144 and a potassium levels at 4.3. White cell count is at 9.8 with a hemoglobin of 15.1. IV fluids are KVO. TPN is currently at the rate of 45 mL an hour. The patient is also receiving enteral feeding and she is at the rate of 10 mL an hour. She has produced excellent amount of urine output. She did have few episodes of itchy fibrillation o vernight and the patient is back to normal sinus rhythm. Antibiotics are still in the form of IV Zosyn. Diuretics are in the form of Lasix 40 mg every 12 hours, and there is significant improvement in her edema and third spacing and there is marked diminished and the swelling in the upper and lower extremities bilaterally. We'll check weaning parameters. We'll consider a spontaneous mode of breathing with pressure support on today's evaluation. Objective - Vital Signs Vital signs: Vital Signs Temp 97.9 F 04/08/23 04:00 Pulse 68 04/08/23 08:18 Resp 25 H 04/08/23 08:18 BP 120/47 04/05/23 09:06 Pulse Ox 94 L 04/08/23 07:00 FiO2 40 04/08/23 08:02 Intake & Output 04/07/23 04/08/23 04/08/23 18:59 06:59 18:59 Intake Total 657.912 579.242 23 Output Total 4525 1875 125 Balance -3867.088 -1295.758 -102 Weight 127.1 kg Intake: IV 411 256 13 0.9NS 130 120 10 0.9NS Pressure Bag 36 36 3 Mvi, Adult No.4 with Vit 45 K 10 ml Trace (Conc-1Ml/ Dose) 1 ml In Amino Acid 5%-D15w+Lytes*E* 1,000 ml @ 45 mls/hr IV .[id number] [facility] Rx#:[id number] Piperacillin-Tazobactam 3 100 100 .375 gm In Sodium Chloride 0.9% 100 ml @ 25 mls/hr IVPB Q8HR [facility] Rx# :[id number] Potassium Chloride 20 meq 100 In Water For Injection 1 100ml.bag @ 50 mls/hr IVPB Q2H [facility] Rx#: [id number] Intake, IV Titration 146.912 113.242 0 Amount Clevidipine Butyrate 25 99.333 mg In Empty Bag 1 bag @ 1 MG/HR 2 mls/hr IV .Q24H [facility] Rx#:[id number] Dexmedetomidine/0.9% NaCl 14.034 (Pmx) 400 mcg In Empty Bag 1 bag @ 0.2 MCG/KG/HR 6.355 mls/hr IV .[id number] [facility] Rx#:[id number] Insulin Regular 100 unit 47.579 99.208 0 In Sodium Chloride 0.9% 100 ml @ Per Protocol IV .Q0M [facility] Rx#:[id number] Tube Feeding 100 120 10 Other 90 Output: Urine 4525 1875 125 Other: Voiding Method Indwelling Catheter Indwelling Catheter ABP, PAP, CO, CI - Last Documented Arterial Blood Pressure 117/42 - Exam No acute distress, awake off sedation, intubated, on a mechanical ventilator and the patient is also sedated She senses the mechanical ventilator. The patient has an orotracheal and orogastric tube both in place. The patient a triple lumen catheter in the right IJ. Head exam was generally normal. There was no scleral icterus or corneal arcus. Mucous membranes were moist. HEENT examination is grossly unremarkable. The patient has a triple-lumen catheter in the right IJ Neck supple. Full range of motion. No adenopathy thyromegaly or neck vein distention. Cardiovascular examination reveals regular rhythm rate. S1-S2 normal. No S3 or S4. No discernible murmur noted. Lungs reveal scattered bilateral rhonchi. Breath sounds equal. Abdomen soft without bowel sounds. The bowel sounds are quite diminished and absent and the patient diffuse abdominal wall edema. No direct tenderness, no rebound tenderness, no guarding Extremities are intact. No cyanosis clubbing and there is diffuse anasarca and edema in all 4 extremities and the patient has a right brachial triple-lumen catheter. The patient is diminished pulses in all 4 extremities. The patient is showing improvement in the edema in 4 extremities. Skin is without rash or lesion. The surgical wound is dry clean and intact Neurologic examination shows that the patient is opening her eyes spontaneously. Pupils are reactive to light. No facial asymmetry. Motor and sensory functions cannot be adequately assessed. No agitation. The patient is grimacing to deep painful stimulation. The patient is recovering from her sedation and she seems to be more awake compared to yesterday. - Labs CBC & Chem 7: 04/08/23 03:58 04/08/23 03:58 Labs: Abnormal Lab Results - Last 24 Hours (Table) 04/05/23 04/07/23 04/07/23 Range/Units 04:00 09:02 12:10 WBC (3.8-10.6) k/uL RBC (3.80-5.40) m/uL Hgb (11.4-16.0) gm/dL Hct (34.0-46.0) % MCV (80.0-100.0) fL RDW (11.5-15.5) % Neutrophils # (1.3-7.7) k/uL Lymphocytes # (1.0-4.8) k/uL ABG pH (7.35-7.45) ABG HCO3 (21-25) mmol/L ABG Total CO2 (19-24) mmol/L ABG O2 Saturation (94-97) % Chloride (98-107) mmol/L Carbon Dioxide (22-30) mmol/L BUN (7-17) mg/dL Glucose (74-99) mg/dL POC Glucose (mg/dL) 121 H 129 H (70-110) mg/dL Calcium (8.4-10.2) mg/dL RBC Folate 1,371 H (280 - 791) ng/mL 04/07/23 04/07/23 04/07/23 Range/Units 13:19 14:08 15:10 WBC (3.8-10.6) k/uL RBC (3.80-5.40) m/uL Hgb (11.4-16.0) gm/dL Hct (34.0-46.0) % MCV (80.0-100.0) fL RDW (11.5-15.5) % Neutrophils # (1.3-7.7) k/uL Lymphocytes # (1.0-4.8) k/uL ABG pH (7.35-7.45) ABG HCO3 (21-25) mmol/L ABG Total CO2 (19-24) mmol/L ABG O2 Saturation (94-97) % Chloride (98-107) mmol/L Carbon Dioxide (22-30) mmol/L BUN (7-17) mg/dL Glucose (74-99) mg/dL POC Glucose (mg/dL) 144 H 169 H 185 H (70-110) mg/dL Calcium (8.4-10.2) mg/dL RBC Folate (280 - 791) ng/mL 04/07/23 04/07/23 04/07/23 Range/Units 16:20 17:27 20:00 WBC (3.8-10.6) k/uL RBC (3.80-5.40) m/uL Hgb (11.4-16.0) gm/dL Hct (34.0-46.0) % MCV (80.0-100.0) fL RDW (11.5-15.5) % Neutrophils # (1.3-7.7) k/uL Lymphocytes # (1.0-4.8) k/uL ABG pH (7.35-7.45) ABG HCO3 (21-25) mmol/L ABG Total CO2 (19-24) mmol/L ABG O2 Saturation (94-97) % Chloride (98-107) mmol/L Carbon Dioxide (22-30) mmol/L BUN (7-17) mg/dL Glucose (74-99) mg/dL POC Glucose (mg/dL) 161 H 148 H 133 H (70-110) mg/dL Calcium (8.4-10.2) mg/dL RBC Folate (280 - 791) ng/mL 04/07/23 04/07/23 04/07/23 Range/Units 21:05 22:03 22:56 WBC (3.8-10.6) k/uL RBC (3.80-5.40) m/uL Hgb (11.4-16.0) gm/dL Hct (34.0-46.0) % MCV (80.0-100.0) fL RDW (11.5-15.5) % Neutrophils # (1.3-7.7) k/uL Lymphocytes # (1.0-4.8) k/uL ABG pH (7.35-7.45) ABG HCO3 (21-25) mmol/L ABG Total CO2 (19-24) mmol/L ABG O2 Saturation (94-97) % Chloride (98-107) mmol/L Carbon Dioxide (22-30) mmol/L BUN (7-17) mg/dL Glucose (74-99) mg/dL POC Glucose (mg/dL) 131 H 135 H 142 H (70-110) mg/dL Calcium (8.4-10.2) mg/dL RBC Folate (280 - 791) ng/mL 04/08/23 04/08/23 04/08/23 Range/Units 00:18 01:05 02:05 WBC (3.8-10.6) k/uL RBC (3.80-5.40) m/uL Hgb (11.4-16.0) gm/dL Hct (34.0-46.0) % MCV (80.0-100.0) fL RDW (11.5-15.5) % Neutrophils # (1.3-7.7) k/uL Lymphocytes # (1.0-4.8) k/uL ABG pH (7.35-7.45) ABG HCO3 (21-25) mmol/L ABG Total CO2 (19-24) mmol/L ABG O2 Saturation (94-97) % Chloride (98-107) mmol/L Carbon Dioxide (22-30) mmol/L BUN (7-17) mg/dL Glucose (74-99) mg/dL POC Glucose (mg/dL) 159 H 164 H 147 H (70-110) mg/dL Calcium (8.4-10.2) mg/dL RBC Folate (280 - 791) ng/mL 04/08/23 04/08/23 04/08/23 Range/Units 03:05 03:57 03:58 WBC 13.1 H (3.8-10.6) k/uL RBC 2.90 L (3.80-5.40) m/uL Hgb 9.8 L (11.4-16.0) gm/dL Hct 29.1 L (34.0-46.0) % MCV 100.3 H (80.0-100.0) fL RDW 17.2 H (11.5-15.5) % Neutrophils # 11.7 H (1.3-7.7) k/uL Lymphocytes # 0.8 L (1.0-4.8) k/uL ABG pH (7.35-7.45) ABG HCO3 (21-25) mmol/L ABG Total CO2 (19-24) mmol/L ABG O2 Saturation (94-97) % Chloride (98-107) mmol/L Carbon Dioxide (22-30) mmol/L BUN (7-17) mg/dL Glucose (74-99) mg/dL POC Glucose (mg/dL) 150 H 143 H (70-110) mg/dL Calcium (8.4-10.2) mg/dL RBC Folate (280 - 791) ng/mL 04/08/23 04/08/23 04/08/23 Range/Units 03:58 04:57 05:41 WBC (3.8-10.6) k/uL RBC (3.80-5.40) m/uL Hgb (11.4-16.0) gm/dL Hct (34.0-46.0) % MCV (80.0-100.0) fL RDW (11.5-15.5) % Neutrophils # (1.3-7.7) k/uL Lymphocytes # (1.0-4.8) k/uL ABG pH 7.51 H (7.35-7.45) ABG HCO3 31 H (21-25) mmol/L ABG Total CO2 32 H (19-24) mmol/L ABG O2 Saturation 97.8 H (94-97) % Chloride 108 H (98-107) mmol/L Carbon Dioxide 34 H (22-30) mmol/L BUN 31 H (7-17) mg/dL Glucose 135 H (74-99) mg/dL POC Glucose (mg/dL) 138 H (70-110) mg/dL Calcium 7.7 L (8.4-10.2) mg/dL RBC Folate (280 - 791) ng/mL 04/08/23 04/08/23 Range/Units 07:03 07:55 WBC (3.8-10.6) k/uL RBC (3.80-5.40) m/uL Hgb (11.4-16.0) gm/dL Hct (34.0-46.0) % MCV (80.0-100.0) fL RDW (11.5-15.5) % Neutrophils # (1.3-7.7) k/uL Lymphocytes # (1.0-4.8) k/uL ABG pH (7.35-7.45) ABG HCO3 (21-25) mmol/L ABG Total CO2 (19-24) mmol/L ABG O2 Saturation (94-97) % Chloride (98-107) mmol/L Carbon Dioxide (22-30) mmol/L BUN (7-17) mg/dL Glucose (74-99) mg/dL POC Glucose (mg/dL) 128 H 147 H (70-110) mg/dL Calcium (8.4-10.2) mg/dL RBC Folate (280 - 791) ng/mL Assessment and Plan Plan: Acute hypoxemic respiratory failure, requiring intubation and mechanical ventilation, subsequent to repair of a dural tear, secondary to a large-volume gastric aspiration. S/P intubation and mechanical ventilation, for respiratory failure, 03/29/2023. Presentation is typical of post aspiration pneumonia with secondary ARDS and the patient is currently sedated and paralyzed. The patient remains sedated on a mechanical ventilator. Oxygenation is stable. PEEP is down to 5. FiO2 is at 40%. Chest exit showing diffuse bilateral pulmonary infiltrates post-ARDS. The patient is currently off sedation. Neurologically, more awake, blood gases showing adequate oxygenation. The patient developed some metabolic alkalosis due to aggressive diuresis. Acute respiratory distress syndrome, improving Aspiration pneumonia secondary to Enterobacter and Klebsiella and the patient remains on IV Zosyn Acute Atrial fibrillation with RVR. The current cardiac rhythm is sinus and the patient remains on amiodarone maintenance. Echo cardiac exam shows a preserved LV function without any significant valvular abnormalities, cardiac rhythm remained sinus. Overnight, the patient did have some paroxysmal atrial fibrillation Lumbar spondylosis and spondylolisthesis, the initial surgery was done on 03/21/2023 status post postop day # 16, T10 to pelvic decompression and fusion. The patient was taken back to the operating room on 03/29/2023 for repair of a dural leak Severe hypotension, likely secondary to sepsis, currently the patient is off pressors History of lumbar radiculopathy. Type 2 diabetes mellitus. The patient is on insulin drip, currently running at 8 units an hour Benign essential hypertension. History of hyperlipidemia. Steroid-induced hyperglycemia the patient is currently on insulin drip running at 8 units an hour Ileus, started on a combination of methyl naltrexone and Reglan, and the patient has produced bowel movements. The patient was started on enteral feeding. She is also on TPN for nutritional support. Anemia of chronic disease , stable hemoglobin at 9.8. Plan: Keep the patient off sedatives Check weaning parameters Spontaneous breathing trial with a pressure support of 7 with a PEEP of 5 Obtain a blood gas one hour Possible extubation She does have an adequate cough and a gag. Nevertheless, she is profoundly weak in all 4 extremities Change Lasix to 40 mg once a Give Diamox 500 mg IV 1 Give the patient another dose of Diamox 500 mg IV piggyback 1 Continue IV Solu-Medrol Continue insulin drip for blood sugar control Continue IV Zosyn Continue TPN for nutritional support. Monitor mental status Conditions other significant critical continue to follow make further recommendations based on her progress. Critical care evaluation that was done in more than 30 minutes. Time with Patient: Greater than 30
--- NOTE | 2023-04-08 08:42 | P.PN ---
Subjective Progress Note Date: 04/08/23 Principal diagnosis: Lumbar degenerative scoliosis LE weakness LE radiculopathy pt s/e this AM, PCC and nursing at bedside. she has done fairly well overnight and continues to become more lucid and awake. She is following commands this morning. Sedation is off as well as paralytics are often have been for the past day and a half. She is still very sleepy and coming out of the anesthesia. She did follow commands though she wiggled her toes and try to move her arms which is very weak still. She is breathing on her own and the event is just there for support at this time. The plan today will be to wean to extubate. PCC medicine notes reviewed as well as chest x-ray. Objective - Vital Signs Vital signs: Vital Signs Temp 97.9 F 04/08/23 04:00 Pulse 68 04/08/23 08:18 Resp 25 H 04/08/23 08:18 BP 120/47 04/05/23 09:06 Pulse Ox 94 L 04/08/23 07:00 FiO2 40 04/08/23 08:02 Intake & Output 04/07/23 04/08/23 04/08/23 18:59 06:59 18:59 Intake Total 657.912 579.242 23 Output Total 4525 1875 125 Balance -3867.088 -1295.758 -102 Weight 127.1 kg Intake: IV 411 256 13 0.9NS 130 120 10 0.9NS Pressure Bag 36 36 3 Mvi, Adult No.4 with Vit 45 K 10 ml Trace (Conc-1Ml/ Dose) 1 ml In Amino Acid 5%-D15w+Lytes*E* 1,000 ml @ 45 mls/hr IV .[id number] [facility] Rx#:[id number] Piperacillin-Tazobactam 3 100 100 .375 gm In Sodium Chloride 0.9% 100 ml @ 25 mls/hr IVPB Q8HR [facility] Rx# :[id number] Potassium Chloride 20 meq 100 In Water For Injection 1 100ml.bag @ 50 mls/hr IVPB Q2H [facility] Rx#: [id number] Intake, IV Titration 146.912 113.242 0 Amount Clevidipine Butyrate 25 99.333 mg In Empty Bag 1 bag @ 1 MG/HR 2 mls/hr IV .Q24H [facility] Rx#:[id number] Dexmedetomidine/0.9% NaCl 14.034 (Pmx) 400 mcg In Empty Bag 1 bag @ 0.2 MCG/KG/HR 6.355 mls/hr IV .[id number] [facility] Rx#:[id number] Insulin Regular 100 unit 47.579 99.208 0 In Sodium Chloride 0.9% 100 ml @ Per Protocol IV .Q0M [facility] Rx#:[id number] Tube Feeding 100 120 10 Other 90 Output: Urine 4525 1875 125 Other: Voiding Method Indwelling Catheter Indwelling Catheter ABP, PAP, CO, CI - Last Documented Arterial Blood Pressure 117/42 - Exam Vented, Not sedated. Following commands better but very tired from the extended anesthesia Abdomen is soft nondistended she has had several bowel movements Edema improving she has decreased her burden by 12 L in the past few days Neg Babinski Neg Cardona's No Clonus patient was rolled her low back and dressing are clean and dry. Dressing was lifted and the incision is clean and dry. She did wiggle her toes are dorsiflexed on the left under command with reasonable strength. She wiggle the toes on the right foot but was not moving ankle as of this time. She tries to move her arms however she is very weak she can move against resistance a few lift her arm up. She is intact distally it would seem to light touch is only touched her large toe on the left she wiggled it. Her pulses are intact distally. - Labs CBC & Chem 7: 04/08/23 03:58 04/08/23 03:58 Labs: Abnormal Lab Results - Last 24 Hours (Table) 04/05/23 04/07/23 04/07/23 Range/Units 04:00 09:02 12:10 WBC (3.8-10.6) k/uL RBC (3.80-5.40) m/uL Hgb (11.4-16.0) gm/dL Hct (34.0-46.0) % MCV (80.0-100.0) fL RDW (11.5-15.5) % Neutrophils # (1.3-7.7) k/uL Lymphocytes # (1.0-4.8) k/uL ABG pH (7.35-7.45) ABG HCO3 (21-25) mmol/L ABG Total CO2 (19-24) mmol/L ABG O2 Saturation (94-97) % Chloride (98-107) mmol/L Carbon Dioxide (22-30) mmol/L BUN (7-17) mg/dL Glucose (74-99) mg/dL POC Glucose (mg/dL) 121 H 129 H (70-110) mg/dL Calcium (8.4-10.2) mg/dL RBC Folate 1,371 H (280 - 791) ng/mL 04/07/23 04/07/23 04/07/23 Range/Units 13:19 14:08 15:10 WBC (3.8-10.6) k/uL RBC (3.80-5.40) m/uL Hgb (11.4-16.0) gm/dL Hct (34.0-46.0) % MCV (80.0-100.0) fL RDW (11.5-15.5) % Neutrophils # (1.3-7.7) k/uL Lymphocytes # (1.0-4.8) k/uL ABG pH (7.35-7.45) ABG HCO3 (21-25) mmol/L ABG Total CO2 (19-24) mmol/L ABG O2 Saturation (94-97) % Chloride (98-107) mmol/L Carbon Dioxide (22-30) mmol/L BUN (7-17) mg/dL Glucose (74-99) mg/dL POC Glucose (mg/dL) 144 H 169 H 185 H (70-110) mg/dL Calcium (8.4-10.2) mg/dL RBC Folate (280 - 791) ng/mL 04/07/23 04/07/23 04/07/23 Range/Units 16:20 17:27 20:00 WBC (3.8-10.6) k/uL RBC (3.80-5.40) m/uL Hgb (11.4-16.0) gm/dL Hct (34.0-46.0) % MCV (80.0-100.0) fL RDW (11.5-15.5) % Neutrophils # (1.3-7.7) k/uL Lymphocytes # (1.0-4.8) k/uL ABG pH (7.35-7.45) ABG HCO3 (21-25) mmol/L ABG Total CO2 (19-24) mmol/L ABG O2 Saturation (94-97) % Chloride (98-107) mmol/L Carbon Dioxide (22-30) mmol/L BUN (7-17) mg/dL Glucose (74-99) mg/dL POC Glucose (mg/dL) 161 H 148 H 133 H (70-110) mg/dL Calcium (8.4-10.2) mg/dL RBC Folate (280 - 791) ng/mL 04/07/23 04/07/23 04/07/23 Range/Units 21:05 22:03 22:56 WBC (3.8-10.6) k/uL RBC (3.80-5.40) m/uL Hgb (11.4-16.0) gm/dL Hct (34.0-46.0) % MCV (80.0-100.0) fL RDW (11.5-15.5) % Neutrophils # (1.3-7.7) k/uL Lymphocytes # (1.0-4.8) k/uL ABG pH (7.35-7.45) ABG HCO3 (21-25) mmol/L ABG Total CO2 (19-24) mmol/L ABG O2 Saturation (94-97) % Chloride (98-107) mmol/L Carbon Dioxide (22-30) mmol/L BUN (7-17) mg/dL Glucose (74-99) mg/dL POC Glucose (mg/dL) 131 H 135 H 142 H (70-110) mg/dL Calcium (8.4-10.2) mg/dL RBC Folate (280 - 791) ng/mL 04/08/23 04/08/23 04/08/23 Range/Units 00:18 01:05 02:05 WBC (3.8-10.6) k/uL RBC (3.80-5.40) m/uL Hgb (11.4-16.0) gm/dL Hct (34.0-46.0) % MCV (80.0-100.0) fL RDW (11.5-15.5) % Neutrophils # (1.3-7.7) k/uL Lymphocytes # (1.0-4.8) k/uL ABG pH (7.35-7.45) ABG HCO3 (21-25) mmol/L ABG Total CO2 (19-24) mmol/L ABG O2 Saturation (94-97) % Chloride (98-107) mmol/L Carbon Dioxide (22-30) mmol/L BUN (7-17) mg/dL Glucose (74-99) mg/dL POC Glucose (mg/dL) 159 H 164 H 147 H (70-110) mg/dL Calcium (8.4-10.2) mg/dL RBC Folate (280 - 791) ng/mL 04/08/23 04/08/23 04/08/23 Range/Units 03:05 03:57 03:58 WBC 13.1 H (3.8-10.6) k/uL RBC 2.90 L (3.80-5.40) m/uL Hgb 9.8 L (11.4-16.0) gm/dL Hct 29.1 L (34.0-46.0) % MCV 100.3 H (80.0-100.0) fL RDW 17.2 H (11.5-15.5) % Neutrophils # 11.7 H (1.3-7.7) k/uL Lymphocytes # 0.8 L (1.0-4.8) k/uL ABG pH (7.35-7.45) ABG HCO3 (21-25) mmol/L ABG Total CO2 (19-24) mmol/L ABG O2 Saturation (94-97) % Chloride (98-107) mmol/L Carbon Dioxide (22-30) mmol/L BUN (7-17) mg/dL Glucose (74-99) mg/dL POC Glucose (mg/dL) 150 H 143 H (70-110) mg/dL Calcium (8.4-10.2) mg/dL RBC Folate (280 - 791) ng/mL 04/08/23 04/08/23 04/08/23 Range/Units 03:58 04:57 05:41 WBC (3.8-10.6) k/uL RBC (3.80-5.40) m/uL Hgb (11.4-16.0) gm/dL Hct (34.0-46.0) % MCV (80.0-100.0) fL RDW (11.5-15.5) % Neutrophils # (1.3-7.7) k/uL Lymphocytes # (1.0-4.8) k/uL ABG pH 7.51 H (7.35-7.45) ABG HCO3 31 H (21-25) mmol/L ABG Total CO2 32 H (19-24) mmol/L ABG O2 Saturation 97.8 H (94-97) % Chloride 108 H (98-107) mmol/L Carbon Dioxide 34 H (22-30) mmol/L BUN 31 H (7-17) mg/dL Glucose 135 H (74-99) mg/dL POC Glucose (mg/dL) 138 H (70-110) mg/dL Calcium 7.7 L (8.4-10.2) mg/dL RBC Folate (280 - 791) ng/mL 04/08/23 04/08/23 Range/Units 07:03 07:55 WBC (3.8-10.6) k/uL RBC (3.80-5.40) m/uL Hgb (11.4-16.0) gm/dL Hct (34.0-46.0) % MCV (80.0-100.0) fL RDW (11.5-15.5) % Neutrophils # (1.3-7.7) k/uL Lymphocytes # (1.0-4.8) k/uL ABG pH (7.35-7.45) ABG HCO3 (21-25) mmol/L ABG Total CO2 (19-24) mmol/L ABG O2 Saturation (94-97) % Chloride (98-107) mmol/L Carbon Dioxide (22-30) mmol/L BUN (7-17) mg/dL Glucose (74-99) mg/dL POC Glucose (mg/dL) 128 H 147 H (70-110) mg/dL Calcium (8.4-10.2) mg/dL RBC Folate (280 - 791) ng/mL Assessment and Plan Assessment: 73 yo female with degenerative lumbar scoliosis surgery 03/21/23 and 03/29/23 POD 18 and 10 from lumbar decompression fusion T10-P with revision dural repair due to dural erosion ARF, Likely aspiration event during 03/29/23 surgery, possibly on intubation DMII, poor control, Gastorparesis Complex medical patient Plan: -Cont human performance consultant and team management. Notes reviewed from PCC, MED, GENSX, ID. PCC and Medicine primary ICU mgt. Vent and meds, pressers per ICU team. -Activity: Bedrest currently. Turn q2. Check dressing regularly. Elevate heels. Dickens boots. PT to move legs and arms to decrease edema. OK For HOB 15-20 deg. -Pain control: Vented, sedated -Meds: [reviewed] -GI ppx: cont with aggressive bowel reg. -Garnett catheter, con change per protocol -DVT PPX: Mechanical, OK for chemo ppx. -Cont Enteral feeds -Hygiene: Maintain dressing clean and dry. Meticulous cleaning after BMs away from incision site -No drain -slow improvements noted. -Dispo: [Pending]
--- NOTE | 2023-04-08 09:07 | XR ---
EXAMINATION TYPE: XR chest 1V portable DATE OF EXAM: 04/08/2023 COMPARISON: 04/07/2023 INDICATION: Tube placement TECHNIQUE: Single frontal view of the chest is obtained. FINDINGS: The heart size is normal. The pulmonary vasculature is normal. Left lower lobe infiltrate is present. Mild infrahilar infiltrate may be present. Right Central venous catheter is present with the tip in the right atrium. Endotracheal tube tip is a [facility]. Nasogastric tube transverses the thorax. IMPRESSION: 1. Left lower lobe infiltrate. Small right infrahilar infiltrate may be present.
[2023-04-08 09:18] LABS: Glucose,Whole Blood 147 mg/dL (70-110)
[2023-04-08 09:32] LABS: ABG Base Excess 6.6 mmol/L; ABG HCO3 30 mmol/L (21-25); ABG Oxygen Saturation 97.6 % (94-97); ABG PCO2 39 mmHg (35-45); ABG PO2 91 mmHg (83-108); ABG TCO2 31 mmol/L (19-24)
[2023-04-08] MEDS: HEPARIN SODIUM,PORCINE 5,000 UNIT/ML 1 ML VIAL SQ SCH ×2 (09:58→16:30)
[2023-04-08] MEDS: PIPERACILLIN-TAZOBACTAM 3.375 GM in SODIUM CHLORIDE 0.9% 100 ML IVPB SCH ×2 (09:58→16:30)
[2023-04-08] MEDS: ARTIFICIAL TEARS-HYPROMELLOSE DROPS 15 ML BTL BOTH EYES SCH ×4 (09:58→21:02)
[2023-04-08] MEDS: FUROSEMIDE 10 MG/ML 4 ML VIAL IV SCH (09:59)
[2023-04-08] MEDS: CHLORHEXIDINE GLUCONATE 15 ML CUP MUCOUS MEM SCH ×2 (09:59→20:02)
[2023-04-08] MEDS: methylPREDNISolone SOD SUCCI 40 MG/ML 1 ML VIAL IV SCH ×2 (09:59→20:02)
[2023-04-08] MEDS: PANTOPRAZOLE 40 MG/10 ML VIAL IV SCH (09:59)
[2023-04-08] MEDS: LACTATED RINGERS 1,000 ML IV SCH (10:00)
[2023-04-08 10:05] LABS: Glucose,Whole Blood 115 mg/dL (70-110)
[2023-04-08 11:09] LABS: Glucose,Whole Blood 140 mg/dL (70-110)
[2023-04-08 12:21] LABS: Glucose,Whole Blood 135 mg/dL (70-110)
[2023-04-08] MEDS: CLEVIDIPINE BUTYRATE 25 MG in EMPTY BAG 1 BAG IV SCH ×2 (12:22→19:31)
[2023-04-08] MEDS: AMIODARONE 200 MG TAB PO SCH ×2 (12:44→20:02)
[2023-04-08] MEDS: GABAPENTIN 100 MG CAP PO SCH ×3 (12:44→21:18)
[2023-04-08] MEDS: SENNOSIDES-DOCUSATE SODIUM 1 EACH TAB PO SCH ×2 (12:47→20:02)
[2023-04-08 13:10] LABS: Glucose,Whole Blood 136 mg/dL (70-110)
--- NOTE | 2023-04-08 13:34 | P.PN ---
Subjective Progress Note Date: 04/08/23 Patient is a 72-year-old female with dyslipidemia, hypertension, pat-jmiunzt-dgppeyzhc diabetes mellitus type 2 who presented for elective T10 to pelvis decompression and fusion. We were consulted for medical management. She underwent successful decompression and fusion on 03/21, however, her po stoperative hospital course was complicated by positional headache suspicious for CSF leak. Subsequently, she was taken back to the operating room on 03/29 for CSF repair. During intubation, patient was noted to have significant amounts of the aspirate emesis and oropharynx and after intubation she was noted to have 1.2 L of gastric output from OG tube. During the procedure she had increasing FiO2 requirements. Postoperatively she became hypotensive down to the 70s/30s and hypoxia down to the mid 60s despite FiO2 of 100% and PEEP of 12. She was transferred to the ICU and started on the Levophed. Differential diagnosis of septic shock secondary to meningitis versus aspiration pneumonia as well as hypovolemic shock secondary to CSF volume loss were considered. She was administered 3L of lactated Ringer's. Chest x-ray postoperatively on 03/29 demonstrated diffuse pulmonary edema with concern for ARDS superimposed on aspiration. Empiric antibiotics were started with vancomycin, ceftriaxone, Unasynfor empiric coverage of both meningitis and aspiration pneumonia/ Infectious disease was consulted. Sputum culture was positive for Klebsiella and Enterobacter with variable resistance. Pro-calcitonin was elevated at 6.7. Her CVP was monitored and remained stable between 13 and 15. Echocardiogram showed EF 60-65%, mild TR, and moderate pulmonary hypertension. Patient was noted to not have a bowel movement in approximately 5 days as of 03/29 and Gen. surgery was consulted for ileus. She developed sepsis induced atrial fibrillation with RVR, was started on amiodarone drip and converted back to normal sinus rhythm. She is placed on metoprolol once her pressor requirements started to decrease on 04/01, however, this was held after pressor requirements increased again on 04/03. Discussed with orthopedic surgery that no anticoagulation will be given for atrial fibrillation during the critical phase, but can be initiated once patient is able to be transitioned to the floor. She did require nimbex which was successfully stopped on 04/03/23, she was given relistor on 04/03/23. She was able to come off levo on 04/04/23. Was briefly on levo overnight on 04/06/23. O2 requirements coming down. Off of propofol. Now becoming hypertensive. Still intubated. Patient seen and examined at bedside. D/W nursing, patient is following commands, but still extremely weak. Remains intubated. On minimal vent settings Vital signs reviewed General: nontoxic, no distress, appears at stated age Cardiovascular: S1S2 reg, no murmur, positive posterior tibial pulse bilateral, Lungs: Coarse breath sounds bilateral, no rhonchi, no rales , no accessory muscle use Abdominal: soft, nontender to palpation, no guarding, no appreciable organomegaly Ext: no gross muscle atrophy, diffuse anasarca with weeping, no contractures Neuro: Able to follow some commands Psych: Unable to assess Assessment/Plan: Multi-focal pneumonia,due to Klebsiella nad Enterobacter complicated by septic shock Ventilator Dependent Acute Hypoxemic and Hypercarbic Respiratory Failure, ARDS Postoperative ileus, resolved. s/p ,methyl-naltrexone - off pressors - Zosyn D #6 -Continue with dulcolax 10 mg daily rectal PRN, Reglan 10 mg every 6 hours scheduled IV, Senokot 1 by mouth twice daily, -Surgery following, patient remains on TPN and tube feeds (likely hold if extubated) -Pulmonology note reviewed, plan for possible extubation today, Lasix decreased to 40 mg twice a day, continue IV Solu-Medrol, insulin drip, IV antibiotics, TPN, gradually weaned while increasing tube feeds -ID following Sepsis induced atrial fibrillation with RVR, paroxysmal -Amiodarone 200 mg oral twice daily -Patient will require anticoagulation when she is no longer critical 72-year-old female status post T10 to pelvis decompression with fusion s/p CSF repair on 03/29 -Orthospine following Acute blood loss anemia, hemoglobin currently stable and improving -Anticipated outcome of surgery/prolonged ICU stay -Follow CBC Diabetes mellitus type 2 -Hold metformin -Currently on insulin drip, switch to SSI when able to tolerate oral intake -Follow blood sugars Dyslipidemia -Gemfibrozil Hypertension, now better controlled -clevidipine discontinued -Likely in the setting of weaning sedation and also pain -will consider home antihypertensives when able to tolerate oral intake Mild hypokalemia, resolved Metabolic acidosis, resolved Imaging: Chest x-ray as reviewed by myself from 04/07 demonstrates diffuse interstitial infiltrate improving Data Review: WBC 13.1, hemoglobin 9.8, sodium 144, potassium 4.3, magnesium 2.1, creatinine 0.79, blood sugars range between 135-147 DVT prophylaxis: Heparin SC Anticipated discharge date: Pending Clinical Course Anticipated discharge place: Pending Clinical Course Objective - Vital Signs Vital signs: Vital Signs Temp 99.3 F 04/08/23 11:00 Pulse 87 04/08/23 13:00 Resp 19 04/08/23 13:00 BP 160/64 04/08/23 12:30 Pulse Ox 97 04/08/23 13:00 FiO2 40 04/08/23 08:02 Intake & Output 04/07/23 04/08/23 04/08/23 18:59 06:59 18:59 Intake Total 666.312 579.242 111.467 Output Total 4525 1875 2425 Balance -3858.688 -1295.758 -2313.533 Weight 127.1 kg Intake: IV 411 256 91 0.9NS 130 120 70 0.9NS Pressure Bag 36 36 21 Mvi, Adult No.4 with Vit 45 K 10 ml Trace (Conc-1Ml/ Dose) 1 ml In Amino Acid 5%-D15w+Lytes*E* 1,000 ml @ 45 mls/hr IV .[id number] [facility] Rx#:[id number] Piperacillin-Tazobactam 3 100 100 .375 gm In Sodium Chloride 0.9% 100 ml @ 25 mls/hr IVPB Q8HR [facility] Rx# :[id number] Potassium Chloride 20 meq 100 In Water For Injection 1 100ml.bag @ 50 mls/hr IVPB Q2H [facility] Rx#: [id number] Intake, IV Titration 155.312 113.242 0.467 Amount Clevidipine Butyrate 25 107.733 0.467 mg In Empty Bag 1 bag @ 1 MG/HR 2 mls/hr IV .Q24H [facility] Rx#:[id number] Dexmedetomidine/0.9% NaCl 14.034 (Pmx) 400 mcg In Empty Bag 1 bag @ 0.2 MCG/KG/HR 6.355 mls/hr IV .[id number] [facility] Rx#:[id number] Insulin Regular 100 unit 47.579 99.208 0 In Sodium Chloride 0.9% 100 ml @ Per Protocol IV .Q0M [facility] Rx#:[id number] Tube Feeding 100 120 20 Other 90 Output: Urine 9612 4993 9948 Other: Voiding Method Indwelling Catheter Indwelling Catheter Indwelling Catheter ABP, PAP, CO, CI - Last Documented Arterial Blood Pressure 174/54 - Labs CBC & Chem 7: 04/08/23 03:58 04/08/23 03:58 Labs: Abnormal Lab Results - Last 24 Hours (Table) 04/05/23 04/07/23 04/07/23 Range/Units 04:00 14:08 15:10 WBC (3.8-10.6) k/uL RBC (3.80-5.40) m/uL Hgb (11.4-16.0) gm/dL Hct (34.0-46.0) % MCV (80.0-100.0) fL RDW (11.5-15.5) % Neutrophils # (1.3-7.7) k/uL Lymphocytes # (1.0-4.8) k/uL ABG pH (7.35-7.45) ABG HCO3 (21-25) mmol/L ABG Total CO2 (19-24) mmol/L ABG O2 Saturation (94-97) % Chloride (98-107) mmol/L Carbon Dioxide (22-30) mmol/L BUN (7-17) mg/dL Glucose (74-99) mg/dL POC Glucose (mg/dL) 169 H 185 H (70-110) mg/dL Calcium (8.4-10.2) mg/dL RBC Folate 1,371 H (280 - 791) ng/mL 04/07/23 04/07/23 04/07/23 Range/Units 16:20 17:27 20:00 WBC (3.8-10.6) k/uL RBC (3.80-5.40) m/uL Hgb (11.4-16.0) gm/dL Hct (34.0-46.0) % MCV (80.0-100.0) fL RDW (11.5-15.5) % Neutrophils # (1.3-7.7) k/uL Lymphocytes # (1.0-4.8) k/uL ABG pH (7.35-7.45) ABG HCO3 (21-25) mmol/L ABG Total CO2 (19-24) mmol/L ABG O2 Saturation (94-97) % Chloride (98-107) mmol/L Carbon Dioxide (22-30) mmol/L BUN (7-17) mg/dL Glucose (74-99) mg/dL POC Glucose (mg/dL) 161 H 148 H 133 H (70-110) mg/dL Calcium (8.4-10.2) mg/dL RBC Folate (280 - 791) ng/mL 04/07/23 04/07/23 04/07/23 Range/Units 21:05 22:03 22:56 WBC (3.8-10.6) k/uL RBC (3.80-5.40) m/uL Hgb (11.4-16.0) gm/dL Hct (34.0-46.0) % MCV (80.0-100.0) fL RDW (11.5-15.5) % Neutrophils # (1.3-7.7) k/uL Lymphocytes # (1.0-4.8) k/uL ABG pH (7.35-7.45) ABG HCO3 (21-25) mmol/L ABG Total CO2 (19-24) mmol/L ABG O2 Saturation (94-97) % Chloride (98-107) mmol/L Carbon Dioxide (22-30) mmol/L BUN (7-17) mg/dL Glucose (74-99) mg/dL POC Glucose (mg/dL) 131 H 135 H 142 H (70-110) mg/dL Calcium (8.4-10.2) mg/dL RBC Folate (280 - 791) ng/mL 04/08/23 04/08/23 04/08/23 Range/Units 00:18 01:05 02:05 WBC (3.8-10.6) k/uL RBC (3.80-5.40) m/uL Hgb (11.4-16.0) gm/dL Hct (34.0-46.0) % MCV (80.0-100.0) fL RDW (11.5-15.5) % Neutrophils # (1.3-7.7) k/uL Lymphocytes # (1.0-4.8) k/uL ABG pH (7.35-7.45) ABG HCO3 (21-25) mmol/L ABG Total CO2 (19-24) mmol/L ABG O2 Saturation (94-97) % Chloride (98-107) mmol/L Carbon Dioxide (22-30) mmol/L BUN (7-17) mg/dL Glucose (74-99) mg/dL POC Glucose (mg/dL) 159 H 164 H 147 H (70-110) mg/dL Calcium (8.4-10.2) mg/dL RBC Folate (280 - 791) ng/mL 04/08/23 04/08/23 04/08/23 Range/Units 03:05 03:57 03:58 WBC 13.1 H (3.8-10.6) k/uL RBC 2.90 L (3.80-5.40) m/uL Hgb 9.8 L (11.4-16.0) gm/dL Hct 29.1 L (34.0-46.0) % MCV 100.3 H (80.0-100.0) fL RDW 17.2 H (11.5-15.5) % Neutrophils # 11.7 H (1.3-7.7) k/uL Lymphocytes # 0.8 L (1.0-4.8) k/uL ABG pH (7.35-7.45) ABG HCO3 (21-25) mmol/L ABG Total CO2 (19-24) mmol/L ABG O2 Saturation (94-97) % Chloride (98-107) mmol/L Carbon Dioxide (22-30) mmol/L BUN (7-17) mg/dL Glucose (74-99) mg/dL POC Glucose (mg/dL) 150 H 143 H (70-110) mg/dL Calcium (8.4-10.2) mg/dL RBC Folate (280 - 791) ng/mL 04/08/23 04/08/23 04/08/23 Range/Units 03:58 04:57 05:41 WBC (3.8-10.6) k/uL RBC (3.80-5.40) m/uL Hgb (11.4-16.0) gm/dL Hct (34.0-46.0) % MCV (80.0-100.0) fL RDW (11.5-15.5) % Neutrophils # (1.3-7.7) k/uL Lymphocytes # (1.0-4.8) k/uL ABG pH 7.51 H (7.35-7.45) ABG HCO3 31 H (21-25) mmol/L ABG Total CO2 32 H (19-24) mmol/L ABG O2 Saturation 97.8 H (94-97) % Chloride 108 H (98-107) mmol/L Carbon Dioxide 34 H (22-30) mmol/L BUN 31 H (7-17) mg/dL Glucose 135 H (74-99) mg/dL POC Glucose (mg/dL) 138 H (70-110) mg/dL Calcium 7.7 L (8.4-10.2) mg/dL RBC Folate (280 - 791) ng/mL 04/08/23 04/08/23 04/08/23 Range/Units 07:03 07:55 09:16 WBC (3.8-10.6) k/uL RBC (3.80-5.40) m/uL Hgb (11.4-16.0) gm/dL Hct (34.0-46.0) % MCV (80.0-100.0) fL RDW (11.5-15.5) % Neutrophils # (1.3-7.7) k/uL Lymphocytes # (1.0-4.8) k/uL ABG pH (7.35-7.45) ABG HCO3 (21-25) mmol/L ABG Total CO2 (19-24) mmol/L ABG O2 Saturation (94-97) % Chloride (98-107) mmol/L Carbon Dioxide (22-30) mmol/L BUN (7-17) mg/dL Glucose (74-99) mg/dL POC Glucose (mg/dL) 128 H 147 H 147 H (70-110) mg/dL Calcium (8.4-10.2) mg/dL RBC Folate (280 - 791) ng/mL 04/08/23 04/08/23 04/08/23 Range/Units 09:30 10:04 11:07 WBC (3.8-10.6) k/uL RBC (3.80-5.40) m/uL Hgb (11.4-16.0) gm/dL Hct (34.0-46.0) % MCV (80.0-100.0) fL RDW (11.5-15.5) % Neutrophils # (1.3-7.7) k/uL Lymphocytes # (1.0-4.8) k/uL ABG pH 7.50 H (7.35-7.45) ABG HCO3 30 H (21-25) mmol/L ABG Total CO2 31 H (19-24) mmol/L ABG O2 Saturation 97.6 H (94-97) % Chloride (98-107) mmol/L Carbon Dioxide (22-30) mmol/L BUN (7-17) mg/dL Glucose (74-99) mg/dL POC Glucose (mg/dL) 115 H 140 H (70-110) mg/dL Calcium (8.4-10.2) mg/dL RBC Folate (280 - 791) ng/mL 04/08/23 04/08/23 Range/Units 12:20 13:08 WBC (3.8-10.6) k/uL RBC (3.80-5.40) m/uL Hgb (11.4-16.0) gm/dL Hct (34.0-46.0) % MCV (80.0-100.0) fL RDW (11.5-15.5) % Neutrophils # (1.3-7.7) k/uL Lymphocytes # (1.0-4.8) k/uL ABG pH (7.35-7.45) ABG HCO3 (21-25) mmol/L ABG Total CO2 (19-24) mmol/L ABG O2 Saturation (94-97) % Chloride (98-107) mmol/L Carbon Dioxide (22-30) mmol/L BUN (7-17) mg/dL Glucose (74-99) mg/dL POC Glucose (mg/dL) 135 H 136 H (70-110) mg/dL Calcium (8.4-10.2) mg/dL RBC Folate (280 - 791) ng/mL
[2023-04-08 14:25] LABS: Glucose,Whole Blood 142 mg/dL (70-110)
[2023-04-08 15:00] LABS: Glucose,Whole Blood 133 mg/dL (70-110)
--- NOTE | 2023-04-08 15:34 | P.PN ---
Subjective Progress Note Date: 04/08/23 Patient was extubated today. Tube feeds held per public relations professional. Tube feeds only for meds. She is awake and appears in shock. No bowel movements today. No abdominal pain. NGT light bilious. Tube feeds per ICU Objective - Vital Signs Vital signs: Vital Signs Temp 99.3 F 04/08/23 11:00 Pulse 85 04/08/23 15:22 Resp 23 04/08/23 15:22 BP 138/56 04/08/23 15:00 Pulse Ox 95 04/08/23 15:00 FiO2 40 04/08/23 08:02 Intake & Output 04/07/23 04/08/23 04/08/23 18:59 06:59 18:59 Intake Total 666.312 579.242 163.440 Output Total 4525 1875 2875 Balance -3858.688 -1295.758 -2711.560 Weight 127.1 kg Intake: IV 411 256 117 0.9NS 130 120 90 0.9NS Pressure Bag 36 36 27 Mvi, Adult No.4 with Vit 45 K 10 ml Trace (Conc-1Ml/ Dose) 1 ml In Amino Acid 5%-D15w+Lytes*E* 1,000 ml @ 45 mls/hr IV .[id number] [facility] Rx#:[id number] Piperacillin-Tazobactam 3 100 100 .375 gm In Sodium Chloride 0.9% 100 ml @ 25 mls/hr IVPB Q8HR [facility] Rx# :[id number] Potassium Chloride 20 meq 100 In Water For Injection 1 100ml.bag @ 50 mls/hr IVPB Q2H [facility] Rx#: [id number] Intake, IV Titration 155.312 113.242 26.440 Amount Clevidipine Butyrate 25 107.733 0.467 mg In Empty Bag 1 bag @ 1 MG/HR 2 mls/hr IV .Q24H [facility] Rx#:[id number] Dexmedetomidine/0.9% NaCl 14.034 (Pmx) 400 mcg In Empty Bag 1 bag @ 0.2 MCG/KG/HR 6.355 mls/hr IV .[id number] [facility] Rx#:[id number] Insulin Regular 100 unit 47.579 99.208 25.973 In Sodium Chloride 0.9% 100 ml @ Per Protocol IV .Q0M [facility] Rx#:[id number] Tube Feeding 100 120 20 Other 90 Output: Urine 3044 2614 3307 Other: Voiding Method Indwelling Catheter Indwelling Catheter Indwelling Catheter ABP, PAP, CO, CI - Last Documented Arterial Blood Pressure 153/50 - Labs CBC & Chem 7: 04/08/23 03:58 04/08/23 03:58 Labs: Abnormal Lab Results - Last 24 Hours (Table) 04/05/23 04/07/23 04/07/23 Range/Units 04:00 16:20 17:27 WBC (3.8-10.6) k/uL RBC (3.80-5.40) m/uL Hgb (11.4-16.0) gm/dL Hct (34.0-46.0) % MCV (80.0-100.0) fL RDW (11.5-15.5) % Neutrophils # (1.3-7.7) k/uL Lymphocytes # (1.0-4.8) k/uL ABG pH (7.35-7.45) ABG HCO3 (21-25) mmol/L ABG Total CO2 (19-24) mmol/L ABG O2 Saturation (94-97) % Chloride (98-107) mmol/L Carbon Dioxide (22-30) mmol/L BUN (7-17) mg/dL Glucose (74-99) mg/dL POC Glucose (mg/dL) 161 H 148 H (70-110) mg/dL Calcium (8.4-10.2) mg/dL RBC Folate 1,371 H (280 - 791) ng/mL 04/07/23 04/07/23 04/07/23 Range/Units 20:00 21:05 22:03 WBC (3.8-10.6) k/uL RBC (3.80-5.40) m/uL Hgb (11.4-16.0) gm/dL Hct (34.0-46.0) % MCV (80.0-100.0) fL RDW (11.5-15.5) % Neutrophils # (1.3-7.7) k/uL Lymphocytes # (1.0-4.8) k/uL ABG pH (7.35-7.45) ABG HCO3 (21-25) mmol/L ABG Total CO2 (19-24) mmol/L ABG O2 Saturation (94-97) % Chloride (98-107) mmol/L Carbon Dioxide (22-30) mmol/L BUN (7-17) mg/dL Glucose (74-99) mg/dL POC Glucose (mg/dL) 133 H 131 H 135 H (70-110) mg/dL Calcium (8.4-10.2) mg/dL RBC Folate (280 - 791) ng/mL 04/07/23 04/08/23 04/08/23 Range/Units 22:56 00:18 01:05 WBC (3.8-10.6) k/uL RBC (3.80-5.40) m/uL Hgb (11.4-16.0) gm/dL Hct (34.0-46.0) % MCV (80.0-100.0) fL RDW (11.5-15.5) % Neutrophils # (1.3-7.7) k/uL Lymphocytes # (1.0-4.8) k/uL ABG pH (7.35-7.45) ABG HCO3 (21-25) mmol/L ABG Total CO2 (19-24) mmol/L ABG O2 Saturation (94-97) % Chloride (98-107) mmol/L Carbon Dioxide (22-30) mmol/L BUN (7-17) mg/dL Glucose (74-99) mg/dL POC Glucose (mg/dL) 142 H 159 H 164 H (70-110) mg/dL Calcium (8.4-10.2) mg/dL RBC Folate (280 - 791) ng/mL 04/08/23 04/08/23 04/08/23 Range/Units 02:05 03:05 03:57 WBC (3.8-10.6) k/uL RBC (3.80-5.40) m/uL Hgb (11.4-16.0) gm/dL Hct (34.0-46.0) % MCV (80.0-100.0) fL RDW (11.5-15.5) % Neutrophils # (1.3-7.7) k/uL Lymphocytes # (1.0-4.8) k/uL ABG pH (7.35-7.45) ABG HCO3 (21-25) mmol/L ABG Total CO2 (19-24) mmol/L ABG O2 Saturation (94-97) % Chloride (98-107) mmol/L Carbon Dioxide (22-30) mmol/L BUN (7-17) mg/dL Glucose (74-99) mg/dL POC Glucose (mg/dL) 147 H 150 H 143 H (70-110) mg/dL Calcium (8.4-10.2) mg/dL RBC Folate (280 - 791) ng/mL 04/08/23 04/08/23 04/08/23 Range/Units 03:58 03:58 04:57 WBC 13.1 H (3.8-10.6) k/uL RBC 2.90 L (3.80-5.40) m/uL Hgb 9.8 L (11.4-16.0) gm/dL Hct 29.1 L (34.0-46.0) % MCV 100.3 H (80.0-100.0) fL RDW 17.2 H (11.5-15.5) % Neutrophils # 11.7 H (1.3-7.7) k/uL Lymphocytes # 0.8 L (1.0-4.8) k/uL ABG pH (7.35-7.45) ABG HCO3 (21-25) mmol/L ABG Total CO2 (19-24) mmol/L ABG O2 Saturation (94-97) % Chloride 108 H (98-107) mmol/L Carbon Dioxide 34 H (22-30) mmol/L BUN 31 H (7-17) mg/dL Glucose 135 H (74-99) mg/dL POC Glucose (mg/dL) 138 H (70-110) mg/dL Calcium 7.7 L (8.4-10.2) mg/dL RBC Folate (280 - 791) ng/mL 04/08/23 04/08/23 04/08/23 Range/Units 05:41 07:03 07:55 WBC (3.8-10.6) k/uL RBC (3.80-5.40) m/uL Hgb (11.4-16.0) gm/dL Hct (34.0-46.0) % MCV (80.0-100.0) fL RDW (11.5-15.5) % Neutrophils # (1.3-7.7) k/uL Lymphocytes # (1.0-4.8) k/uL ABG pH 7.51 H (7.35-7.45) ABG HCO3 31 H (21-25) mmol/L ABG Total CO2 32 H (19-24) mmol/L ABG O2 Saturation 97.8 H (94-97) % Chloride (98-107) mmol/L Carbon Dioxide (22-30) mmol/L BUN (7-17) mg/dL Glucose (74-99) mg/dL POC Glucose (mg/dL) 128 H 147 H (70-110) mg/dL Calcium (8.4-10.2) mg/dL RBC Folate (280 - 791) ng/mL 04/08/23 04/08/23 04/08/23 Range/Units 09:16 09:30 10:04 WBC (3.8-10.6) k/uL RBC (3.80-5.40) m/uL Hgb (11.4-16.0) gm/dL Hct (34.0-46.0) % MCV (80.0-100.0) fL RDW (11.5-15.5) % Neutrophils # (1.3-7.7) k/uL Lymphocytes # (1.0-4.8) k/uL ABG pH 7.50 H (7.35-7.45) ABG HCO3 30 H (21-25) mmol/L ABG Total CO2 31 H (19-24) mmol/L ABG O2 Saturation 97.6 H (94-97) % Chloride (98-107) mmol/L Carbon Dioxide (22-30) mmol/L BUN (7-17) mg/dL Glucose (74-99) mg/dL POC Glucose (mg/dL) 147 H 115 H (70-110) mg/dL Calcium (8.4-10.2) mg/dL RBC Folate (280 - 791) ng/mL 04/08/23 04/08/23 04/08/23 Range/Units 11:07 12:20 13:08 WBC (3.8-10.6) k/uL RBC (3.80-5.40) m/uL Hgb (11.4-16.0) gm/dL Hct (34.0-46.0) % MCV (80.0-100.0) fL RDW (11.5-15.5) % Neutrophils # (1.3-7.7) k/uL Lymphocytes # (1.0-4.8) k/uL ABG pH (7.35-7.45) ABG HCO3 (21-25) mmol/L ABG Total CO2 (19-24) mmol/L ABG O2 Saturation (94-97) % Chloride (98-107) mmol/L Carbon Dioxide (22-30) mmol/L BUN (7-17) mg/dL Glucose (74-99) mg/dL POC Glucose (mg/dL) 140 H 135 H 136 H (70-110) mg/dL Calcium (8.4-10.2) mg/dL RBC Folate (280 - 791) ng/mL 04/08/23 04/08/23 Range/Units 14:23 14:59 WBC (3.8-10.6) k/uL RBC (3.80-5.40) m/uL Hgb (11.4-16.0) gm/dL Hct (34.0-46.0) % MCV (80.0-100.0) fL RDW (11.5-15.5) % Neutrophils # (1.3-7.7) k/uL Lymphocytes # (1.0-4.8) k/uL ABG pH (7.35-7.45) ABG HCO3 (21-25) mmol/L ABG Total CO2 (19-24) mmol/L ABG O2 Saturation (94-97) % Chloride (98-107) mmol/L Carbon Dioxide (22-30) mmol/L BUN (7-17) mg/dL Glucose (74-99) mg/dL POC Glucose (mg/dL) 142 H 133 H (70-110) mg/dL Calcium (8.4-10.2) mg/dL RBC Folate (280 - 791) ng/mL
[2023-04-08 15:58] LABS: Glucose,Whole Blood 140 mg/dL (70-110)
[2023-04-08 17:59] LABS: Glucose,Whole Blood 87 mg/dL (70-110)
[2023-04-08 18:48] LABS: Glucose,Whole Blood 116 mg/dL (70-110)
[2023-04-08] MEDS: [UNRECOGNIZED DRUG - REMARK] IV SCH ×7 (18:50)
[2023-04-08 19:51] LABS: Potassium 3.8 mmol/L (3.5-5.1)
[2023-04-08 19:54] LABS: Glucose,Whole Blood 173 mg/dL (70-110)
[2023-04-08 20:49] LABS: Glucose,Whole Blood 178 mg/dL (70-110)
[2023-04-08] MEDS: NOREPINEPHRINE 32 MG in SODIUM CHLORIDE 0.9% 218 ML IV SCH (20:54)
[2023-04-08 21:52] LABS: Glucose,Whole Blood 135 mg/dL (70-110)
[2023-04-08] MEDS: VASOPRESSIN 60 UNIT in SODIUM CHLORIDE 0.9% 150 ML IV SCH (22:07)
[2023-04-08 22:53] LABS: Glucose,Whole Blood 110 mg/dL (70-110)
[2023-04-08 23:54] LABS: Glucose,Whole Blood 166 mg/dL (70-110)
[2023-04-09] MEDS: METOCLOPRAMIDE 5 MG/ML 2 ML VIAL IVP SCH ×2 (00:02→05:06)
[2023-04-09] MEDS: HEPARIN SODIUM,PORCINE 5,000 UNIT/ML 1 ML VIAL SQ SCH ×2 (00:02→08:58)
[2023-04-09] MEDS: PIPERACILLIN-TAZOBACTAM 3.375 GM in SODIUM CHLORIDE 0.9% 100 ML IVPB SCH ×4 (00:02→23:49)
[2023-04-09] MEDS: CLEVIDIPINE BUTYRATE 25 MG in EMPTY BAG 1 BAG IV SCH (00:12)
[2023-04-09 00:59] LABS: Glucose,Whole Blood 169 mg/dL (70-110)
[2023-04-09 01:56] LABS: Glucose,Whole Blood 138 mg/dL (70-110)
[2023-04-09 03:09] LABS: Glucose,Whole Blood 120 mg/dL (70-110)
[2023-04-09 03:51] LABS: Glucose,Whole Blood 113 mg/dL (70-110)
[2023-04-09 04:28] LABS: Anisocytosis Slight; Basophils % (A) 0 %; Eosinophils % (A) 0 %; HCT 29.6 % (34.0-46.0); HGB 9.8 gm/dL (11.4-16.0); Hypochromasia Slight; Lymphocytes # (A) 0.8 k/uL (1.0-4.8); Lymphocytes % (A) 6 %; MCH 33.2 pg (25.0-35.0); MCV 100.7 fL (80.0-100.0); Macrocytosis Slight; Mean Platelet Volume 8.8; Monocytes # (A) 0.6 k/uL (0-1.0); Monocytes % (A) 4 %; Neutrophils # (A) 10.9 k/uL (1.3-7.7); Neutrophils % (A) 88 %; Platelet Count 325 k/uL (150-450); RBC 2.94 m/uL (3.80-5.40); RDW 16.4 % (11.5-15.5); WBC 12.4 k/uL (3.8-10.6)
[2023-04-09 04:38] LABS: ALT 26 U/L (4-34); AST 36 U/L (14-36); African American GFR (CKD) >90 (>60 ml/min/1.73 sqM); Albumin 2.6 g/dL (3.5-5.0); Alkaline Phosphatase 87 U/L (38-126); Anion Gap 4 mmol/L; Blood Urea Nitrogen 33 mg/dL (7-17); Calcium 8.1 mg/dL (8.4-10.2); Carbon Dioxide 28 mmol/L (22-30); Chloride 111 mmol/L (98-107); Glucose 126 mg/dL (74-99); Magnesium 2.2 mg/dL (1.6-2.3); Non-African American GFR(CKD) >90 (>60 ml/min/1.73 sqM); Phosphorus 3.4 mg/dL (2.5-4.5); Potassium 4.1 mmol/L (3.5-5.1); Sodium 143 mmol/L (137-145); Total Bilirubin 0.6 mg/dL (0.2-1.3); Total Protein 5.2 g/dL (6.3-8.2)
[2023-04-09 05:03] LABS: Glucose,Whole Blood 170 mg/dL (70-110)
[2023-04-09 05:53] LABS: Glucose,Whole Blood 173 mg/dL (70-110)
[2023-04-09 06:55] LABS: Glucose,Whole Blood 140 mg/dL (70-110)
[2023-04-09 08:06] LABS: Glucose,Whole Blood 92 mg/dL (70-110)
--- NOTE | 2023-04-09 08:11 | P.PN ---
Subjective Progress Note Date: 04/09/23 Respiratory failure. Patient is a 72-year-old female with past medical history significant for chronic back pain and lumbar radiculopathy, diabetes mellitus type 2, hyperlipidemia, hypertension. Patient has been complaining of lumbar radiculopathy like symptoms earlier this year, and was evaluated by Dr. Duong. She was found to have multilevel spondylosis and spondylolisthesis. She underwent an elective T10 to pelvis decompression and fusion . The initial surgery was done on 03/21/2023. Subsequently, the patient continued to have CSF leak following a complex he 10 decompression fusion and the patient underwent a ureteral repair with a patch graft. This was done on 03/29/2023. On today's evaluation of 04/03/2023, the patient remains intubated on a mechanical ventilator. The patient has been intubated since 03/29/2023. She has an acute hypoxic respiratory failure/bilateral pneumonia/ARDS in addition to hypotension/sepsis. She remains on mechanical ventilator and the splinter assist-control mode rate of 32, tidal volume 400, FiO2 of 60% with a PEEP of 15. Peak airway pressure is 38. They static airway pressure is 34. The chest x- ray from today shows diffuse bilateral pulmonary infiltrates. The patient has a triple-lumen catheter in her right IJ. ET tube seems to be high in the trachea. No evidence of any pleural effusion and there is diffuse consolidation. There is hardware also involving the thoracolumbar spine. At the same time, the patient has a pH of 7.21 with a pCO2 of 43 and pO2 of 89. She is currently sedated and she is on propofol running at 50 mcg/kg/m and fentanyl running at 2 mcg/kg/h the patient is also on paralytics and she is on Nimbex at 3 mcg/kg/m. IV fluids running at KVO. Cardiac rhythm is sinus and the patient remains on amiodarone drip at 0.5 mg/m maintenance. The patient is fully sedated and paralyzed this point in time. IV fluids are at 20 mL an hour and the patient remains on pressors. She is on physiologic dose of vasopressin at 0.04 units an hour and the patient is also on norepinephrine running at 0.08 mcg/kg/m. She has an arterial line in the right brachial. She has a triple-lumen catheter in the right IJ. In terms of her blood work, the patient has a white cell count of 17 with a hemoglobin of 8.3 and a platelet count of 212. Sodium is at 134, potassium is at 4.2, bicarb is at 17, BUN is at 19 with a creatinine of 0.8. Her microbiology from the sputum indicated presence of Enterobacter and Klebsiella. The patient is currently covered with antibiotics and she is on IV cefepime. She is also on vancomycin. The most recent vancomycin trough from yesterday was 15. Urine output is in order of 50 mL an hour and overall fluid balance over the past 24 hours has been +700 mL. The patient has been ess entially in a positive fluid balance over the past several days. The patient is on enteral feeding for nutritional support and currently she is on hold as the patient is having higher residuals. Most recent CT angiogram of the chest that was done on 04/02/2023 showed multifocal groundglass pulmonary opacities and bibasilar consolidation consistent with pneumonia and there is also small pleural effusions and postsurgical changes involving the spine. CAT scan of the abdomen and pelvis was also done on 04/02/2023 and was consistent with ileus. No evidence of any perforation. No evidence of any mechanical obstruction as the patient did not have any focal transition point and contrast was de monstrated throughout the bowel extending to sigmoid colon. There is evidence of sigmoid diverticulosis without evidence of diverticulitis. There is diffuse anasarca. Echo of the heart was done on 03/29/2023 showed normal LV with an ejection fraction of 6065%, there is mild to moderate pulmonary hypertension with mild tricuspid regurgitation. 04/04/2023, the patient remains intubated on a mechanical ventilator. She is currently off paralytics and she is sedated with propofol which is running at a dose of 45 V per kilogram per minute and she is also on fentanyl running at 1.5 mcg/kg/h. The patient is quite seclusive mechanical ventilator. Chest x-ray still showing diffuse bilateral pulmonary infiltrates consistent with pneumonia/ARDS. Nevertheless, there is interval improvement in oxygenation. Today, the patient is on assist-control mode at the rate of 32, tidal volume of 400, FiO2 of 50% with a PEEP of 12. The blood gas that was done on this current setting shows a pH of 7.31 with a pCO2 42 and pO2 of 186. As such, there is improvement in the oxygenation. The peak airway pressure is currently at 30. The static airway pressure is currently at 24. The patient remains on pressors although at a lower dose. Vasopressin is physiologic at 0.04 units an minutes and the patient is also on norepinephrine at 0.01 g hospital kilogram per minutes. The patient remains on amiodarone drip throughout the night and currently her rhythm is sinus and amiodarone drip was discontinued this morning. Feeding was held yesterday because of increased residuals. She does have a com ponent of ileus. She remains on Reglan. NG tube output is 3 50 mL overnight the patient was also started on methyl naltrexone 12 mg for bowel motility. The rest of the blood work shows a white cell count of 15 with a hemoglobin of 7.8 and a platelet count of 183. The sodium is at 131, BUN is at 20 with a creatinine of 0.7. Serum bicarb is up to 20. IV fluids are as a former bicarb infusion rate of 75 mL an hour. She was started on insulin drip for blood sugar control as the patient's blood sugar was quite elevated while being on systemic steroids. She remains on IV Zosyn. No other significant events overnight. Overall fluid balance over the past 24 hours has been in the order of -143 mL and the patient is receiving Lasix at a dose of 20 mg every 12 hours. 04/05/2023, the patient is being seen for a follow-up. She remains intubated on a mechanical ventilator. She is off paralytics and she is on a combination of propofol and fentanyl. Propofol is running at 45 maximum hospital kilogram per minute and fentanyl is running at 1 mcg/kg/h. The patient is on assist-control mode of mechanical ventilation at the rate of 32, tidal volume of 400, FiO2 of 40% with a PEEP of 10. Blood gas from today shows a pH of 7.46 with a pCO2 of 36 and pO2 of 115 and there is progressive improvement in the patient's oxygenation. The chest x-ray from today shows diffuse bilateral pulmonary infiltrates and bilateral pleural effusions slightly worse on the left. Orotracheal tube is in a good location. No evidence of any pneumothorax. No other major abnormalities. The patient is a triple-lumen catheter in her right internal jugular vein. Hemodynamically, the patient is off pressors. This was discontinued yesterday. The patient is currently on IV Lasix. She is producing good urine output and she is still and a positive fluid balance over the past 24 hours. She is currently on Lasix at a dose of 40 mg IV every 12 hours. She is also on a bicarb infusion as the patient is a component of melena negative metabolic acidosis. Serum bicarb is improved and the serum bicarbs up to 24 and a bicarb infusion will be discontinued today. Renal function is stable. The patient had a drop in hemoglobin down to 6.9 at today's evaluation. The white cell count at 17.2. Platelet counts are 226. Overall serum iron is at 53. The patient remains on bronchodilators, systemic steroids and IV Solu-Medrol 40 mg every 12 hours. She is on insulin drip which is running at 5 units an hour and the patient is covered with IV Zosyn regarding kilogram negative pneumonia. Another active issue is her ongoing difficulties with ileus and absent bowel movement activity. The patient has persistent air distention of the colon based on the most recent 5, the abdomen was as yesterday and there is slight improvement compared to the earlier films with the cecum now distended up to 8.1 cm compared to 9.1 cm. The angina output is in order of 500 mL overnight and the patient remains nothing by mouth for now. 04/06/2023 the patient is being seen for a follow-up. The patient is sedated on a combination of propofol and fentanyl. Propofol is at 40 mcg/kg/m and fentanyl still running at 1 mcg/kg/h. She is off paralytics. This morning, she was also taken off the pressors. Chest x-ray still showing diffuse but the pulmonary infiltrates/ARDS. Nevertheless, there has been improvement in oxygenation. The PEEP was gradually weaned down to 8 and the patient remains in respiratory rate of 32, tidal volume of 400 with an FiO2 of 40%. A chest x-ray is showing stable bilateral pulmonary infiltrates. The blood gas from today shows a pH of 7.51 with a pCO2 of 36 and pO2 of 74. The patient is being diuresed with IV Lasix 40 mg every 8 hours. The fluid balance is negative at least 5.1 L over the past 24 hours. The edema has improved both in the upper and lower extremity speech is producing adequate urine output. Note that she also started stooling. She had small bowel movements yesterday total of 3. We were having difficulties in treating this patient and she was started on TPN for nutritional support. She is also on insulin drip at 4 units an hour for blood sugar control. The white cell cause of 18.4 with a hemoglobin of 8.9. Platelet count is at 310. The BUN is at 26 with a creatinine of 0.8 and a sodium level is at 136. Potassium levels at 3.7 and we are chasing and replacing the potassium supplements. The peak airway pressure is down to 27. No other significant events overnight. She remains on IV Zosyn. She remains on steroids. Her cardiac rhythm is sinus and she is on oral amiodarone. 23, I'm seeing the patient for a follow-up. The patient remains intubated on a mechanical ventilator. As of yesterday, we started weaning off sedation this morning the patient is off propofol and off fentanyl. She is opening her eyes pH is still not following any commands. Nevertheless, she is quite comfortable on a mechanical ventilator. No agitation. No restlessness. We are sending the process of monitoring her neurologic recovery off the sedation. Noted the patient has taken massive amounts of sedation and she was paralyzed earlier. She remains on assist-control mode at a rate of 24, tidal volume of 400, FiO2 is down to 40% and the PEEP is down to 5. Blood gas shows a pH of 7.46 with a pCO2 of 43 and pO2 of 81. The chest x-ray is showing no major interval change with diffuse bilateral pulmonary infiltrates. All of the lites are still in place. Hemodynamically she is stable. She is off pressors. She is on insulin drip at 6 units an hour. She is on TPN. Enteral feeding was started again as the patient started having some bowel movement with activity and stool. Will monitor individuals. He is on vital high-protein at the rate of 10 mL an hour and this is being gradually advanced. Meanwhile, WBC count is at 17.9, hemoglobin is at 9.3 and the platelet is at 370. Sodium is at 146 and the patient is being aggressively diuresed. She is in a negative fluid balance of at least 5 L over the past 24 hours. The BUN is at 28 with a creatinine of 0.8. The patient is receiving Lasix 40 mg IV every 12 hours. Cardiac rhythm is sinus. Potassium is being replaced. Antibiotics has been continued and the patient remains on IV Zosyn. On a 04/08/2023 ,the patient is awake and alert and she is communicating. She remains on a mechanical ventilator. The patient's is wiggling her toes. She is barely moving her fingers. She does have a good cough and a gag. She is profoundly weak. She is arousable, she responds, she grimaces, she communicates. She is assist-control mode of mechanical ventilation. She is off sedation for now. The patient has been off sedation for more than 48 hours. She is on assist-control mode of mechanical ventilation at the rate of 24, tidal volume of 400, FiO2 of 40% with a PEEP of 5. Chest x-ray shows improvement of bilateral pulmonary infiltrates although that is residual consolidation bilaterally. The chest x-ray was reviewed. The blood gas shows a pH of 7.51 with a pCO2 of 39 and a pO2 of 94 and this was done FiO2 40% with a PEEP of 5. The patient's fluid balance has been -5 L over the past 24 hours. She has developed some metabolic alkalosis. Serum bicarbs of 234. BUN is at 31 with a creatinine of 0.7. Sodium levels of 144 and a potassium levels at 4.3. White cell count is at 9.8 with a hemoglobin of 15.1. IV fluids are KVO. TPN is currently at the rate of 45 mL an hour. The patient is also receiving enteral feeding and she is at the rate of 10 mL an hour. She has produced excellent amount of urine output. She did have few episodes of itchy fibrillation o vernight and the patient is back to normal sinus rhythm. Antibiotics are still in the form of IV Zosyn. Diuretics are in the form of Lasix 40 mg every 12 hours, and there is significant improvement in her edema and third spacing and there is marked diminished and the swelling in the upper and lower extremities bilaterally. We'll check weaning parameters. We'll consider a spontaneous mode of breathing with pressure support on today's evaluation. 04/09/2023, the patient is extubated on oxygen at 2 L/m nasal cannula. Profoundly weak, still lethargic, follows simple commands and unable to move her arms, she is able to wiggle her toes and she does have facial expression in response to questions. No signs of any respiratory distress. Chest x-ray is showing stable but the pulmonary infiltrates post-ARDS. She does have a cough and a gag. NG tube was kept in place and the patient started having diarrhea as of yesterday. The fecal management system was inserted and the patient has pro duced approximately 300 mL of stool since yesterday. We'll check stool for C. diff. At the same time, she is running higher blood pressure post extubation. The patient was started on Cleviprex dripp and this was discontinued this morning. The patientis running higher blood pressure. She did have few episodes of atrial fibrillation overnight and currently her rhythm is back to sinus.she remains on TPN for nutritional support pH remains on IV steroids. She remains on an insulin drip currently running at 10 units an hour. She continues to diabetes. She has another negative fluid balance of at least 2 L over the past 24 hours. The white cell count is at 12.4, hemoglobin is at 9.8. BUN is 33 with a creatinine of 0.6 and a sodium level is at 143 with a potassium level of 4.1. The patient is on IV Zosyn that was started on 04/03/2023 and the patient has nearly completed her course. Objective - Vital Signs Vital signs: Vital Signs Temp 98.3 F 04/09/23 04:00 Pulse 70 04/09/23 07:00 Resp 20 04/09/23 07:00 BP 141/60 04/09/23 07:00 Pulse Ox 97 04/09/23 07:00 FiO2 40 04/08/23 08:02 Intake & Output 04/08/23 04/09/23 04/09/23 18:59 06:59 18:59 Intake Total 1251.440 525.778 13 Output Total 3535 1170 400 Balance -2283.560 -644.222 -387 Intake: IV 169 243 13 0.9NS 130 110 10 0.9NS Pressure Bag 39 33 3 Piperacillin-Tazobactam 3 100 .375 gm In Sodium Chloride 0.9% 100 ml @ 25 mls/hr IVPB Q8HR [facility] Rx# :[id number] Intake, IV Titration 1062.440 282.778 Amount Clevidipine Butyrate 25 0.467 118.266 mg In Empty Bag 1 bag @ 1 MG/HR 2 mls/hr IV .Q24H [facility] Rx#:[id number] Insulin Regular 100 unit 25.973 164.512 In Sodium Chloride 0.9% 100 ml @ Per Protocol IV .Q0M [facility] Rx#:[id number] Mvi, Adult No.4 with Vit 1036 K 10 ml Trace (Conc-1Ml/ Dose) 1 ml Potassium Chloride 18 meq Calcium Gluconate 1 gm Magnesium Sulfate gm 0.5 gm Potassium Phosphate 15 mmol In Amino Acid 5%- D15w 1,000 ml @ 45 mls/hr IV .Q23H2M [facility] Rx#: [id number] Tube Feeding 20 Output: Gastric Drainage 50 Urine 3535 1170 50 Stool 300 Other: Voiding Method Indwelling Catheter Indwelling Catheter # Bowel Movements 1 ABP, PAP, CO, CI - Last Documented Arterial Blood Pressure 165/56 - Exam No acute distress, awake, extubated on 2 L of oxygen nasal cannula. The patient a triple lumen catheter in the right IJ. Head exam was generally normal. There was no scleral icterus or corneal arcus. Mucous membranes were moist. HEENT examination is grossly unremarkable. The patient has a triple-lumen catheter in the right IJ Neck supple. Full range of motion. No adenopathy thyromegaly or neck vein distention. Cardiovascular examination reveals regular rhythm rate. S1-S2 normal. No S3 or S4. No discernible murmur noted. Lungs reveal scattered bilateral rhonchi. Breath sounds equal. Abdomen soft without bowel sounds. The bowel sounds are quite diminished and a bsent and the patient diffuse abdominal wall edema. No direct tenderness, no rebound tenderness, no guarding Extremities are intact. No cyanosis clubbing and there is diffuse anasarca and edema in all 4 extremities and the patient has a right brachial triple-lumen catheter. The patient is diminished pulses in all 4 extremities. The patient is showing improvement in the edema in 4 extremities. Skin is without rash or lesion. The surgical wound is dry clean and intact Neurologic examination shows that the patient is opening her eyes spontaneously. Pupils are reactive to light. No facial asymmetry. Motor and sensory functions cannot be adequately assessed. No agitation. The patient is grimacing to deep painful stimulation. The patient is was extubated. No focal neurological deficit. Profound motor weakness in all 4 extremities. - Labs CBC & Chem 7: 04/09/23 04:19 04/09/23 04:19 Labs: Abnormal Lab Results - Last 24 Hours (Table) 04/08/23 04/08/23 04/08/23 Range/Units 09:16 09:30 10:04 WBC (3.8-10.6) k/uL RBC (3.80-5.40) m/uL Hgb (11.4-16.0) gm/dL Hct (34.0-46.0) % MCV (80.0-100.0) fL RDW (11.5-15.5) % Neutrophils # (1.3-7.7) k/uL Lymphocytes # (1.0-4.8) k/uL ABG pH 7.50 H (7.35-7.45) ABG HCO3 30 H (21-25) mmol/L ABG Total CO2 31 H (19-24) mmol/L ABG O2 Saturation 97.6 H (94-97) % Chloride (98-107) mmol/L BUN (7-17) mg/dL Glucose (74-99) mg/dL POC Glucose (mg/dL) 147 H 115 H (70-110) mg/dL Calcium (8.4-10.2) mg/dL Total Protein (6.3-8.2) g/dL Albumin (3.5-5.0) g/dL 04/08/23 04/08/23 04/08/23 Range/Units 11:07 12:20 13:08 WBC (3.8-10.6) k/uL RBC (3.80-5.40) m/uL Hgb (11.4-16.0) gm/dL Hct (34.0-46.0) % MCV (80.0-100.0) fL RDW (11.5-15.5) % Neutrophils # (1.3-7.7) k/uL Lymphocytes # (1.0-4.8) k/uL ABG pH (7.35-7.45) ABG HCO3 (21-25) mmol/L ABG Total CO2 (19-24) mmol/L ABG O2 Saturation (94-97) % Chloride (98-107) mmol/L BUN (7-17) mg/dL Glucose (74-99) mg/dL POC Glucose (mg/dL) 140 H 135 H 136 H (70-110) mg/dL Calcium (8.4-10.2) mg/dL Total Protein (6.3-8.2) g/dL Albumin (3.5-5.0) g/dL 04/08/23 04/08/23 04/08/23 Range/Units 14:23 14:59 15:56 WBC (3.8-10.6) k/uL RBC (3.80-5.40) m/uL Hgb (11.4-16.0) gm/dL Hct (34.0-46.0) % MCV (80.0-100.0) fL RDW (11.5-15.5) % Neutrophils # (1.3-7.7) k/uL Lymphocytes # (1.0-4.8) k/uL ABG pH (7.35-7.45) ABG HCO3 (21-25) mmol/L ABG Total CO2 (19-24) mmol/L ABG O2 Saturation (94-97) % Chloride (98-107) mmol/L BUN (7-17) mg/dL Glucose (74-99) mg/dL POC Glucose (mg/dL) 142 H 133 H 140 H (70-110) mg/dL Calcium (8.4-10.2) mg/dL Total Protein (6.3-8.2) g/dL Albumin (3.5-5.0) g/dL 04/08/23 04/08/23 04/08/23 Range/Units 18:45 19:53 20:48 WBC (3.8-10.6) k/uL RBC (3.80-5.40) m/uL Hgb (11.4-16.0) gm/dL Hct (34.0-46.0) % MCV (80.0-100.0) fL RDW (11.5-15.5) % Neutrophils # (1.3-7.7) k/uL Lymphocytes # (1.0-4.8) k/uL ABG pH (7.35-7.45) ABG HCO3 (21-25) mmol/L ABG Total CO2 (19-24) mmol/L ABG O2 Saturation (94-97) % Chloride (98-107) mmol/L BUN (7-17) mg/dL Glucose (74-99) mg/dL POC Glucose (mg/dL) 116 H 173 H 178 H (70-110) mg/dL Calcium (8.4-10.2) mg/dL Total Protein (6.3-8.2) g/dL Albumin (3.5-5.0) g/dL 04/08/23 04/08/23 04/09/23 Range/Units 21:51 23:53 00:57 WBC (3.8-10.6) k/uL RBC (3.80-5.40) m/uL Hgb (11.4-16.0) gm/dL Hct (34.0-46.0) % MCV (80.0-100.0) fL RDW (11.5-15.5) % Neutrophils # (1.3-7.7) k/uL Lymphocytes # (1.0-4.8) k/uL ABG pH (7.35-7.45) ABG HCO3 (21-25) mmol/L ABG Total CO2 (19-24) mmol/L ABG O2 Saturation (94-97) % Chloride (98-107) mmol/L BUN (7-17) mg/dL Glucose (74-99) mg/dL POC Glucose (mg/dL) 135 H 166 H 169 H (70-110) mg/dL Calcium (8.4-10.2) mg/dL Total Protein (6.3-8.2) g/dL Albumin (3.5-5.0) g/dL 04/09/23 04/09/23 04/09/23 Range/Units 01:55 03:08 03:49 WBC (3.8-10.6) k/uL RBC (3.80-5.40) m/uL Hgb (11.4-16.0) gm/dL Hct (34.0-46.0) % MCV (80.0-100.0) fL RDW (11.5-15.5) % Neutrophils # (1.3-7.7) k/uL Lymphocytes # (1.0-4.8) k/uL ABG pH (7.35-7.45) ABG HCO3 (21-25) mmol/L ABG Total CO2 (19-24) mmol/L ABG O2 Saturation (94-97) % Chloride (98-107) mmol/L BUN (7-17) mg/dL Glucose (74-99) mg/dL POC Glucose (mg/dL) 138 H 120 H 113 H (70-110) mg/dL Calcium (8.4-10.2) mg/dL Total Protein (6.3-8.2) g/dL Albumin (3.5-5.0) g/dL 04/09/23 04/09/23 04/09/23 Range/Units 04:19 04:19 05:01 WBC 12.4 H (3.8-10.6) k/uL RBC 2.94 L (3.80-5.40) m/uL Hgb 9.8 L (11.4-16.0) gm/dL Hct 29.6 L (34.0-46.0) % MCV 100.7 H (80.0-100.0) fL RDW 16.4 H (11.5-15.5) % Neutrophils # 10.9 H (1.3-7.7) k/uL Lymphocytes # 0.8 L (1.0-4.8) k/uL ABG pH (7.35-7.45) ABG HCO3 (21-25) mmol/L ABG Total CO2 (19-24) mmol/L ABG O2 Saturation (94-97) % Chloride 111 H (98-107) mmol/L BUN 33 H (7-17) mg/dL Glucose 126 H (74-99) mg/dL POC Glucose (mg/dL) 170 H (70-110) mg/dL Calcium 8.1 L (8.4-10.2) mg/dL Total Protein 5.2 L (6.3-8.2) g/dL Albumin 2.6 L (3.5-5.0) g/dL 04/09/23 04/09/23 Range/Units 05:52 06:54 WBC (3.8-10.6) k/uL RBC (3.80-5.40) m/uL Hgb (11.4-16.0) gm/dL Hct (34.0-46.0) % MCV (80.0-100.0) fL RDW (11.5-15.5) % Neutrophils # (1.3-7.7) k/uL Lymphocytes # (1.0-4.8) k/uL ABG pH (7.35-7.45) ABG HCO3 (21-25) mmol/L ABG Total CO2 (19-24) mmol/L ABG O2 Saturation (94-97) % Chloride (98-107) mmol/L BUN (7-17) mg/dL Glucose (74-99) mg/dL POC Glucose (mg/dL) 173 H 140 H (70-110) mg/dL Calcium (8.4-10.2) mg/dL Total Protein (6.3-8.2) g/dL Albumin (3.5-5.0) g/dL Assessment and Plan Plan: Acute hypoxemic respiratory failure, requiring intubation and mechanical ventilation, subsequent to repair of a dural tear, secondary to a large-volume gastric aspiration. S/P intubation and mechanical ventilation, for respiratory failure, 03/29/2023. Presentation is typical of post aspiration pneumonia with secondary ARDS and the patient is currently sedated and paralyzed. The patient remains sedated on a mechanical ventilator. Oxygenation is stable. PEEP is down to 5. FiO2 is at 40%. Chest exit showing diffuse bilateral pulmonary infiltrates post-ARDS. The patient is currently off sedation. Neurologically, more awake, blood gases showing adequate oxygenation. The patient developed some metabolic alkalosis due to aggressive diuresis. the patient was extubated yesterday and the patient is currently on 2 L of oxygen by nasal cannula. Extubation was performed on 04/09/2023. Acute respiratory distress syndrome, improving Aspiration pneumonia secondary to Enterobacter and Klebsiella and the patient remains on IV Zosyn, Critical illness polyneuropathy him significant myopathy and motor weakness Acute Atrial fibrillation with RVR. The current cardiac rhythm is sinus and the patient remains on amiodarone maintenance. Echo cardiac exam shows a preserved LV function without any significant valvular abnormalities, cardiac rhythm remained sinus. Overnight, the patient did have some paroxysmal atrial fibrillation Lumbar spondylosis and spondylolisthesis, the initial surgery was done on 03/21/2023 , T10 to pelvic decompression and fusion. The patient was taken back to the operating room on 03/29/2023 for repair of a dural leak Severe hypotension, likely secondary to sepsis, currently the patient is off pre ssors, currently hypertensive History of lumbar radiculopathy. Type 2 diabetes mellitus. The patient is on insulin drip, currently running at10 units an hour Benign essential hypertension. History of hyperlipidemia. Steroid-induced hyperglycemia the patient is currently on insulin drip running at10 units an hour Ileus, started on a combination of methyl naltrexone and Reglan, and the patient has produced bowel movements. The patient was started on enteral feeding. She is also on TPN for nutritional support.the patient started having diarrhea overnight and the patient is a fecal management system in Place Anemia of chronic disease , stable hemoglobin at 9.8. Plan: start the patient on physical therapy and passive range of motion Keep oxygen at 2 L Start the patient on metoprolol 25 mg by mouth twice a Start the patient lisinopril 10 mg by mouth daily Discontinue IV Lasix Keep the NG tube in place Start enteral feeding for nutritional support Check stool for C. diff Complete the course of IV Zosyn and then discontinue, After completing a seven- day course Continue insulin drip for blood sugar control daily chest x-ray Encourage use of incentive spirometer Keep the fecal management system in Place Conditions other significant critical continue to follow make further re commendations based on her progress. Critical care evaluation that was done in more than 30 minutes. Time with Patient: Greater than 30
[2023-04-09] MEDS: IPRATROPIUM-ALBUTEROL 3 ML NEB INHALATION SCH ×4 (08:51→19:44)
[2023-04-09] MEDS ORDERED: lisinopriL 10 MG TAB PO SCH (09:00)
[2023-04-09] MEDS ORDERED: FUROSEMIDE 10 MG/ML 4 ML VIAL IV SCH (09:00)
[2023-04-09] MEDS: PANTOPRAZOLE 40 MG/10 ML VIAL IV SCH (09:40)
[2023-04-09] MEDS: METOPROLOL TARTRATE 25 MG TAB PO SCH ×2 (09:40→21:04)
[2023-04-09] MEDS: methylPREDNISolone SOD SUCCI 40 MG/ML 1 ML VIAL IV SCH ×2 (09:40→21:04)
[2023-04-09] MEDS: ARTIFICIAL TEARS-HYPROMELLOSE DROPS 15 ML BTL BOTH EYES SCH ×4 (09:41→21:01)
[2023-04-09] MEDS: SENNOSIDES-DOCUSATE SODIUM 1 EACH TAB PO SCH ×2 (09:41→21:04)
[2023-04-09] MEDS: AMIODARONE 200 MG TAB PO SCH ×2 (09:41→21:04)
[2023-04-09] MEDS: GABAPENTIN 100 MG CAP PO SCH ×3 (09:41→21:04)
[2023-04-09 09:45] LABS: Glucose,Whole Blood 66 mg/dL (70-110)
[2023-04-09 09:49] LABS: Glucose,Whole Blood 80 mg/dL (70-110)
[2023-04-09] MEDS: INSULIN REGULAR 100 UNIT in SODIUM CHLORIDE 0.9% 100 ML IV SCH ×2 (10:52→19:34)
[2023-04-09 10:53] LABS: Glucose,Whole Blood 132 mg/dL (70-110)
[2023-04-09] MEDS: LACTATED RINGERS 1,000 ML IV SCH (10:54)
--- NOTE | 2023-04-09 11:53 | CT ---
EXAMINATION TYPE: CT brain wo con DATE OF EXAM: 04/09/2023 COMPARISON: None INDICATION: Extubated, slow to awake DLP: 1098.5 mGycm, Automated exposure control for dose reduction was used. CONTRAST: None CT of the brain is performed utilizing 3 mm thick sections through the posterior fossa and 3 mm thick sections through the remaining calvarium. Study is performed within 24 hours of arrival to the hosp ital. No abnormal hyperdensity is present to suggest an acute intracranial hemorrhage. No mass lesion is evident. No acute infarcts are evident. Ventricles and sulci are prominent for the patient age. Paranasal sinuses and mastoid air cells within the [id number] are clear. IMPRESSIONS: 1. Atrophy. 2. No acute intracranial process radiographically apparent. Follow up MRI can be performed as clinica lly indicated.
[2023-04-09 11:57] LABS: Glucose,Whole Blood 132 mg/dL (70-110)
--- NOTE | 2023-04-09 12:36 | P.PN ---
Subjective Progress Note Date: 04/09/23 Patient is a 72-year-old female with dyslipidemia, hypertension, [id number] diabetes mellitus type 2 who presented for elective T10 to pelvis decompression and fusion. We were consulted for medical management. She underwent successful decompression and fusion on 03/21, however, her postoperative hospital course was complicated by positional headache suspicious for CSF leak. Subsequently, she was taken back to the operating room on 03/29 for CSF repair. During intubation, patient was noted to have significant amounts of the aspirate emesis and oropharynx and after intubation she was noted to have 1.2 L of gastric output from OG tube. During the procedure she had incr easing FiO2 requirements. Postoperatively she became hypotensive down to the 70s/30s and hypoxia down to the mid 60s despite FiO2 of 100% and PEEP of 12. She was transferred to the ICU and started on the Levophed. Differential diagnosis of septic shock secondary to meningitis versus aspiration pneumonia as well as hypovolemic shock secondary to CSF volume loss were considered. She was administered 3L of lactated Ringer's. Chest x-ray postoperatively on 03/29 demonstrated diffuse pulmonary edema with concern for ARDS superimposed on aspiration. Empiric antibiotics were started with vancomycin, ceftriaxone, Unasynfor empiric coverage of both meningitis and aspiration pneumonia/ Infectious disease was consulted. Sputum culture was positive for Klebsiella and Enterobacter with variable resistance. Pro-calcitonin was elevated at 6.7. Her CVP was monitored and remained stable between 13 and 15. Echocardiogram showed EF 60-65%, mild TR, and moderate pulmonary hypertension. Patient was noted to not have a bowel movement in approximately 5 days as of 03/29 and Gen. surgery was consulted for ileus. She developed sepsis induced atrial fibrillation with RVR, was started on amiodarone drip and converted back to normal sinus rhythm. She is placed on metoprolol once her pressor requirements started to decrease on 04/01, however, this was held after pressor requirements increased again on 04/03. Discussed with orthopedic surgery that no anticoagulation will be given for atrial fibrillation during the critical phase, but can be initiated once patient is able to be transitioned to the floor. She did require nimbex which was successfully stopped on 04/03/23, she was given relistor on 04/03/23 and started having bowel movements. She was able to come off levo on 04/04/23. After patient was weaned off of vasopressor agents she did have some episodes of hypertension requiring a cleft pain drip as she was unable to tolerate oral feedings. Patient continued to have bowel movements and tube feeds were started at trickle. She was successfully extubated on 04/08/23. Patient seen and examined at bedside. She is tracking around the room and look ing at . She is not following commands. She is not making any verbal sounds. No family is present at bedside at this time. Case discussed with nursing. Patient did require initiation of a fecal management system due to consistent liquid bowel movements. She has a brachial art line in place which has been in for several days. There is a significant difference between her cough and arterial line pressures. We're currently following cuff pressures. She was started on metoprolol and lisinopril by Dr. Thompson today. She continues to have bouts of intermittent A. fib. Vital signs reviewed General: nontoxic, no distress, appears at stated age Cardiovascular: S1S2 reg, no murmur, positive posterior tibial pulse bilateral, Lungs: Coarse breath sounds bilateral, no rhonchi, no rales , no accessory muscle use Abdominal: soft, nontender to palpation, no guarding, no appreciable organ omegaly Ext: no gross muscle atrophy, 2+ b/l LE edema , no contractures Neuro: Tracking movement around the room, does not follow commands of moving arms, legs, or keeping eyes closed. She is moving her lower extremities independently and has withdrawal to pain in bilateral upper extremities. Psych: Awake, currently non-verbal and unable to assess mental status. Assessment/Plan: Multi-focal pneumonia,due to Klebsiella nad Enterobacter complicated by septic shock Ventilator Dependent Acute Hypoxemic and Hypercarbic Respiratory Failure, ARDS Postoperative ileus, resolved now with diarrhea Toxic metabolic encepahlopathy - Pulmonary no reviewed: Metoprolol 25 mg twice daily and lisinopril 10 mg daily started, Lasix discontinued. - Surgery no reviewed from 04/08: tubefeeds per ICU. -Patient may have some hypoactive delirium associated with poor pain control. Discussed with Dr. Duong start IV acetaminophen scheduled for the next 24 hours to see if this improves in order to reduce the use of opiate medications. - Vikki Huber #7 - stop reglan, await c diff - CT head ordered and reviewed, NAP - Continue with dulcolax 10 mg daily rectal, Senokot 1 by mouth twice daily - Continue with TPN, tube feeds restarted Sepsis induced atrial fibrillation with RVR, paroxysmal Hypertension -Amiodarone 200 mg oral twice daily -Metoprolol 25 mg twice daily and lisinopril 10 mg -Xarelto 20 mg daily 72-year-old female status post T10 to pelvis decompression with fusion s/p CSF repair on 03/29 -Case discussed at length with Dr. Duong. Will start on Xarelto 20 mg daily today for A. fib prophylaxis given the fact that she continues to have run s of A. fib despite amiodarone. She can now have her head slightly above 20. Acute blood loss anemia, stable - 1 unit pRBC -Anticipated outcome of surgery/prolonged ICU stay -Follow CBC Diabetes mellitus type 2 -Hold metformin -Currently on insulin drip, hold to D/C in the next 24 hours and BS liable with TF being restarted -Follow blood sugars Dyslipidemia -Gemfibrozil Metabolic acidosis, resolved Imaging: CT brain ordered and reviewed-atrophy with no acute intracranial process radiologically apparent. Data Review: Vitals reviewed T-max the last 24 hours 99.3. Blood pressures are reviewed and blood pressures have remained stable in the 130s to 140s over the last 24 hours. Labs reviewed and remarkable for white blood cell count 12.4, hemoglobin 9.8, chloride 111, BUN 33, creatinine 0.61, blood sugars ranging from 60 to 130 Blood sugars reviewed for the last 24 hours have ranged from 141-173 DVT prophylaxis: Changed to Xarelto Anticipated discharge date: Pending Clinical Course Anticipated discharge place: Pending Clinical Course This dictation was prepared using [employer] voice recognition software. Though every attempt is made to correct errors during dictation some may still exist. Objective - Vital Signs Vital signs: Vital Signs Temp 98.7 F 04/09/23 08:00 Pulse 90 04/09/23 11:00 Resp 21 04/09/23 11:00 BP 143/61 04/09/23 11:00 Pulse Ox 97 04/09/23 11:00 FiO2 40 04/08/23 08:02 Intake & Output 04/08/23 04/09/23 04/09/23 18:59 06:59 18:59 Intake Total 1251.440 525.778 178.433 Output Total 3535 1170 695 Balance -2283.560 -644.222 -516.567 Weight 86.7 kg Intake: IV 169 243 165 0.9NS 130 110 50 0.9NS Pressure Bag 39 33 15 Piperacillin-Tazobactam 3 100 100 .375 gm In Sodium Chloride 0.9% 100 ml @ 25 mls/hr IVPB Q8HR [facility] Rx# :[id number] Intake, IV Titration 1062.440 282.778 13.433 Amount Clevidipine Butyrate 25 0.467 118.266 mg In Empty Bag 1 bag @ 1 MG/HR 2 mls/hr IV .Q24H [facility] Rx#:[id number] Insulin Regular 100 unit 25.973 164.512 13.433 In Sodium Chloride 0.9% 100 ml @ Per Protocol IV .Q0M [facility] Rx#:[id number] Mvi, Adult No.4 with Vit 1036 K 10 ml Trace (Conc-1Ml/ Dose) 1 ml Potassium Chloride 18 meq Calcium Gluconate 1 gm Magnesium Sulfate gm 0.5 gm Potassium Phosphate 15 mmol In Amino Acid 5%- D15w 1,000 ml @ 45 mls/hr IV .Q23H2M [facility] Rx#: [id number] Tube Feeding 20 Output: Gastric Drainage 50 Urine 3535 1170 345 Stool 300 Other: Voiding Method Indwelling Catheter Indwelling Catheter # Bowel Movements 1 ABP, PAP, CO, CI - Last Documented Arterial Blood Pressure 178/66 - Labs CBC & Chem 7: 04/09/23 04:19 04/09/23 04:19 Labs: Abnormal Lab Results - Last 24 Hours (Table) 04/08/23 04/08/23 04/08/23 Range/Units 12:20 13:08 14:23 WBC (3.8-10.6) k/uL RBC (3.80-5.40) m/uL Hgb (11.4-16.0) gm/dL Hct (34.0-46.0) % MCV (80.0-100.0) fL RDW (11.5-15.5) % Neutrophils # (1.3-7.7) k/uL Lymphocytes # (1.0-4.8) k/uL Chloride (98-107) mmol/L BUN (7-17) mg/dL Glucose (74-99) mg/dL POC Glucose (mg/dL) 135 H 136 H 142 H (70-110) mg/dL Calcium (8.4-10.2) mg/dL Total Protein (6.3-8.2) g/dL Albumin (3.5-5.0) g/dL 04/08/23 04/08/23 04/08/23 Range/Units 14:59 15:56 18:45 WBC (3.8-10.6) k/uL RBC (3.80-5.40) m/uL Hgb (11.4-16.0) gm/dL Hct (34.0-46.0) % MCV (80.0-100.0) fL RDW (11.5-15.5) % Neutrophils # (1.3-7.7) k/uL Lymphocytes # (1.0-4.8) k/uL Chloride (98-107) mmol/L BUN (7-17) mg/dL Glucose (74-99) mg/dL POC Glucose (mg/dL) 133 H 140 H 116 H (70-110) mg/dL Calcium (8.4-10.2) mg/dL Total Protein (6.3-8.2) g/dL Albumin (3.5-5.0) g/dL 04/08/23 04/08/23 04/08/23 Range/Units 19:53 20:48 21:51 WBC (3.8-10.6) k/uL RBC (3.80-5.40) m/uL Hgb (11.4-16.0) gm/dL Hct (34.0-46.0) % MCV (80.0-100.0) fL RDW (11.5-15.5) % Neutrophils # (1.3-7.7) k/uL Lymphocytes # (1.0-4.8) k/uL Chloride (98-107) mmol/L BUN (7-17) mg/dL Glucose (74-99) mg/dL POC Glucose (mg/dL) 173 H 178 H 135 H (70-110) mg/dL Calcium (8.4-10.2) mg/dL Total Protein (6.3-8.2) g/dL Albumin (3.5-5.0) g/dL 0804/09/23 04/09/23 Range/Units 23:53 00:57 01:55 WBC (3.8-10.6) k/uL RBC (3.80-5.40) m/uL Hgb (11.4-16.0) gm/dL Hct (34.0-46.0) % MCV (80.0-100.0) fL RDW (11.5-15.5) % Neutrophils # (1.3-7.7) k/uL Lymphocytes # (1.0-4.8) k/uL Chloride (98-107) mmol/L BUN (7-17) mg/dL Glucose (74-99) mg/dL POC Glucose (mg/dL) 166 H 169 H 138 H (70-110) mg/dL Calcium (8.4-10.2) mg/dL Total Protein (6.3-8.2) g/dL Albumin (3.5-5.0) g/dL 04/09/23 04/09/23 04/09/23 Range/Units 03:08 03:49 04:19 WBC 12.4 H (3.8-10.6) k/uL RBC 2.94 L (3.80-5.40) m/uL Hgb 9.8 L (11.4-16.0) gm/dL Hct 29.6 L (34.0-46.0) % MCV 100.7 H (80.0-100.0) fL RDW 16.4 H (11.5-15.5) % Neutrophils # 10.9 H (1.3-7.7) k/uL Lymphocytes # 0.8 L (1.0-4.8) k/uL Chloride (98-107) mmol/L BUN (7-17) mg/dL Glucose (74-99) mg/dL POC Glucose (mg/dL) 120 H 113 H (70-110) mg/dL Calcium (8.4-10.2) mg/dL Total Protein (6.3-8.2) g/dL Albumin (3.5-5.0) g/dL 04/09/23 04/09/23 04/09/23 Range/Units 04:19 05:01 05:52 WBC (3.8-10.6) k/uL RBC (3.80-5.40) m/uL Hgb (11.4-16.0) gm/dL Hct (34.0-46.0) % MCV (80.0-100.0) fL RDW (11.5-15.5) % Neutrophils # (1.3-7.7) k/uL Lymphocytes # (1.0-4.8) k/uL Chloride 111 H (98-107) mmol/L BUN 33 H (7-17) mg/dL Glucose 126 H (74-99) mg/dL POC Glucose (mg/dL) 170 H 173 H (70-110) mg/dL Calcium 8.1 L (8.4-10.2) mg/dL Total Protein 5.2 L (6.3-8.2) g/dL Albumin 2.6 L (3.5-5.0) g/dL 04/09/23 04/09/23 04/09/23 Range/Units 06:54 09:44 10:50 WBC (3.8-10.6) k/uL RBC (3.80-5.40) m/uL Hgb (11.4-16.0) gm/dL Hct (34.0-46.0) % MCV (80.0-100.0) fL RDW (11.5-15.5) % Neutrophils # (1.3-7.7) k/uL Lymphocytes # (1.0-4.8) k/uL Chloride (98-107) mmol/L BUN (7-17) mg/dL Glucose (74-99) mg/dL POC Glucose (mg/dL) 140 H 66 L 132 H (70-110) mg/dL Calcium (8.4-10.2) mg/dL Total Protein (6.3-8.2) g/dL Albumin (3.5-5.0) g/dL 04/09/23 Range/Units 11:55 WBC (3.8-10.6) k/uL RBC (3.80-5.40) m/uL Hgb (11.4-16.0) gm/dL Hct (34.0-46.0) % MCV (80.0-100.0) fL RDW (11.5-15.5) % Neutrophils # (1.3-7.7) k/uL Lymphocytes # (1.0-4.8) k/uL Chloride (98-107) mmol/L BUN (7-17) mg/dL Glucose (74-99) mg/dL POC Glucose (mg/dL) 132 H (70-110) mg/dL Calcium (8.4-10.2) mg/dL Total Protein (6.3-8.2) g/dL Albumin (3.5-5.0) g/dL
[2023-04-09 13:05] LABS: Glucose,Whole Blood 111 mg/dL (70-110)
--- NOTE | 2023-04-09 13:39 | P.PN ---
Subjective Progress Note Date: 04/09/23 She is having bowel movements with diarrhea Pending CDiff Abdomen unremarkable and soft Mouth - open Non verbal Agree with stop laxatives and reglan for diarrhea Re-start tube feeds Agree with continued TPN has edema B/L upper extremity 2+ Objective - Vital Signs Vital signs: Vital Signs Temp 98.7 F 04/09/23 08:00 Pulse 90 04/09/23 11:00 Resp 21 04/09/23 11:00 BP 143/61 04/09/23 11:00 Pulse Ox 97 04/09/23 11:00 FiO2 40 04/08/23 08:02 Intake & Output 04/08/23 04/09/23 04/09/23 18:59 06:59 18:59 Intake Total 1251.440 525.778 226.502 Output Total 3535 1170 920 Balance -2283.560 -644.222 -693.498 Weight 86.7 kg Intake: IV 169 243 191 0.9NS 130 110 70 0.9NS Pressure Bag 39 33 21 Piperacillin-Tazobactam 3 100 100 .375 gm In Sodium Chloride 0.9% 100 ml @ 25 mls/hr IVPB Q8HR [facility] Rx# :[id number] Intake, IV Titration 1062.440 282.778 35.502 Amount Clevidipine Butyrate 25 0.467 118.266 mg In Empty Bag 1 bag @ 1 MG/HR 2 mls/hr IV .Q24H [facility] Rx#:[id number] Insulin Regular 100 unit 25.973 164.512 35.502 In Sodium Chloride 0.9% 100 ml @ Per Protocol IV .Q0M [facility] Rx#:[id number] Mvi, Adult No.4 with Vit 1036 K 10 ml Trace (Conc-1Ml/ Dose) 1 ml Potassium Chloride 18 meq Calcium Gluconate 1 gm Magnesium Sulfate gm 0.5 gm Potassium Phosphate 15 mmol In Amino Acid 5%- D15w 1,000 ml @ 45 mls/hr IV .Q23H2M [facility] Rx#: [id number] Tube Feeding 20 Output: Gastric Drainage 50 Urine 3535 1170 570 Stool 300 Other: Voiding Method Indwelling Catheter Indwelling Catheter # Bowel Movements 1 ABP, PAP, CO, CI - Last Documented Arterial Blood Pressure 178/66 - Labs CBC & Chem 7: 04/09/23 04:19 04/09/23 04:19 Labs: Abnormal Lab Results - Last 24 Hours (Table) 04/08/23 04/08/23 04/08/23 Range/Units 14:23 14:59 15:56 WBC (3.8-10.6) k/uL RBC (3.80-5.40) m/uL Hgb (11.4-16.0) gm/dL Hct (34.0-46.0) % MCV (80.0-100.0) fL RDW (11.5-15.5) % Neutrophils # (1.3-7.7) k/uL Lymphocytes # (1.0-4.8) k/uL Chloride (98-107) mmol/L BUN (7-17) mg/dL Glucose (74-99) mg/dL POC Glucose (mg/dL) 142 H 133 H 140 H (70-110) mg/dL Calcium (8.4-10.2) mg/dL Total Protein (6.3-8.2) g/dL Albumin (3.5-5.0) g/dL 04/08/23 04/08/23 04/08/23 Range/Units 18:45 19:53 20:48 WBC (3.8-10.6) k/uL RBC (3.80-5.40) m/uL Hgb (11.4-16.0) gm/dL Hct (34.0-46.0) % MCV (80.0-100.0) fL RDW (11.5-15.5) % Neutrophils # (1.3-7.7) k/uL Lymphocytes # (1.0-4.8) k/uL Chloride (98-107) mmol/L BUN (7-17) mg/dL Glucose (74-99) mg/dL POC Glucose (mg/dL) 116 H 173 H 178 H (70-110) mg/dL Calcium (8.4-10.2) mg/dL Total Protein (6.3-8.2) g/dL Albumin (3.5-5.0) g/dL 04/08/23 04/08/23 04/09/23 Range/Units 21:51 23:53 00:57 WBC (3.8-10.6) k/uL RBC (3.80-5.40) m/uL Hgb (11.4-16.0) gm/dL Hct (34.0-46.0) % MCV (80.0-100.0) fL RDW (11.5-15.5) % Neutrophils # (1.3-7.7) k/uL Lymphocytes # (1.0-4.8) k/uL Chloride (98-107) mmol/L BUN (7-17) mg/dL Glucose (74-99) mg/dL POC Glucose (mg/dL) 135 H 166 H 169 H (70-110) mg/dL Calcium (8.4-10.2) mg/dL Total Protein (6.3-8.2) g/dL Albumin (3.5-5.0) g/dL 04/09/23 04/09/23 04/09/23 Range/Units 01:55 03:08 03:49 WBC (3.8-10.6) k/uL RBC (3.80-5.40) m/uL Hgb (11.4-16.0) gm/dL Hct (34.0-46.0) % MCV (80.0-100.0) fL RDW (11.5-15.5) % Neutrophils # (1.3-7.7) k/uL Lymphocytes # (1.0-4.8) k/uL Chloride (98-107) mmol/L BUN (7-17) mg/dL Glucose (74-99) mg/dL POC Glucose (mg/dL) 138 H 120 H 113 H (70-110) mg/dL Calcium (8.4-10.2) mg/dL Total Protein (6.3-8.2) g/dL Albumin (3.5-5.0) g/dL 04/09/23 04/09/23 04/09/23 Range/Units 04:19 04:19 05:01 WBC 12.4 H (3.8-10.6) k/uL RBC 2.94 L (3.80-5.40) m/uL Hgb 9.8 L (11.4-16.0) gm/dL Hct 29.6 L (34.0-46.0) % MCV 100.7 H (80.0-100.0) fL RDW 16.4 H (11.5-15.5) % Neutrophils # 10.9 H (1.3-7.7) k/uL Lymphocytes # 0.8 L (1.0-4.8) k/uL Chloride 111 H (98-107) mmol/L BUN 33 H (7-17) mg/dL Glucose 126 H (74-99) mg/dL POC Glucose (mg/dL) 170 H (70-110) mg/dL Calcium 8.1 L (8.4-10.2) mg/dL Total Protein 5.2 L (6.3-8.2) g/dL Albumin 2.6 L (3.5-5.0) g/dL 04/09/23 04/09/23 04/09/23 Range/Units 05:52 06:54 09:44 WBC (3.8-10.6) k/uL RBC (3.80-5.40) m/uL Hgb (11.4-16.0) gm/dL Hct (34.0-46.0) % MCV (80.0-100.0) fL RDW (11.5-15.5) % Neutrophils # (1.3-7.7) k/uL Lymphocytes # (1.0-4.8) k/uL Chloride (98-107) mmol/L BUN (7-17) mg/dL Glucose (74-99) mg/dL POC Glucose (mg/dL) 173 H 140 H 66 L (70-110) mg/dL Calcium (8.4-10.2) mg/dL Total Protein (6.3-8.2) g/dL Albumin (3.5-5.0) g/dL 04/09/23 04/09/23 04/09/23 Range/Units 10:50 11:55 13:03 WBC (3.8-10.6) k/uL RBC (3.80-5.40) m/uL Hgb (11.4-16.0) gm/dL Hct (34.0-46.0) % MCV (80.0-100.0) fL RDW (11.5-15.5) % Neutrophils # (1.3-7.7) k/uL Lymphocytes # (1.0-4.8) k/uL Chloride (98-107) mmol/L BUN (7-17) mg/dL Glucose (74-99) mg/dL POC Glucose (mg/dL) 132 H 132 H 111 H (70-110) mg/dL Calcium (8.4-10.2) mg/dL Total Protein (6.3-8.2) g/dL Albumin (3.5-5.0) g/dL
[2023-04-09] MEDS: ACETAMINOPHEN IV (For NPO) 1,000 MG in EMPTY BAG 1 BAG IVPB SCH ×3 (13:50→23:32)
[2023-04-09 14:11] LABS: Glucose,Whole Blood 134 mg/dL (70-110)
[2023-04-09 15:25] LABS: Glucose,Whole Blood 133 mg/dL (70-110)
--- NOTE | 2023-04-09 15:56 | P.PN ---
Subjective Progress Note Date: 04/08/23 Principal diagnosis: Sepsis/pneumonia Patient is a 73-year-old female electively admitted to the hospital 03/21/2023 and this patient who is s/p extensive thoracolumbar spine surgery in this patient who is status post L2-L5 deformity correction did have a L2-S1 interbody fusion and T10-L2 posterior lateral instrumented fusion,patient did have postoperative CSF leak status post complex T10 posterior decompression fusion with dural repair postoperatively the patient did have a respiratory distress requiring intubation and admission to the ICU. On today's evaluation that is 04/08/2023, the patient continues to be afebrile, the patient is hemodynamically stable off of pressor support, the patient has been extubated and is breathing comfortable on a 4 L nasal cannula oxygen, the patient is awake but slightly lethargic and did not answer any question no vomiting or diarrhea has been reported Patient white count is down to 13.1 hemoglobin is 9.8 creatinine 0.[address] angiogram of the chest that was negative for PE did shows multifocal groundglass opacities, CT abdomen and pelvis was consistent with ileus and no evidence of perforation Objective - Vital Signs Vital signs: Vital Signs Temp 98.3 F 04/08/23 08:00 Pulse 76 04/08/23 11:11 Resp 14 04/08/23 11:11 BP 120/47 04/05/23 09:06 Pulse Ox 95 04/08/23 10:47 FiO2 40 04/08/23 08:02 Intake & Output 04/07/23 04/08/23 04/08/23 18:59 06:59 18:59 Intake Total 657.912 579.242 72 Output Total 4571 1875 825 Balance -3867.088 -1295.758 -753 Weight 127.1 kg Intake: IV 411 256 52 0.9NS 130 120 40 0.9NS Pressure Bag 36 36 12 Mvi, Adult No.4 with Vit 45 K 10 ml Trace (Conc-1Ml/ Dose) 1 ml In Amino Acid 5%-D15w+Lytes*E* 1,000 ml @ 45 mls/hr IV .[id number] [facility] Rx#:[id number] Piperacillin-Tazobactam 3 100 100 .375 gm In Sodium Chloride 0.9% 100 ml @ 25 mls/hr IVPB Q8HR [facility] Rx# :[id number] Potassium Chloride 20 meq 100 In Water For Injection 1 100ml.bag @ 50 mls/hr IVPB Q2H [facility] Rx#: [id number] Intake, IV Titration 146.912 113.242 0 Amount Clevidipine Butyrate 25 99.333 mg In Empty Bag 1 bag @ 1 MG/HR 2 mls/hr IV .Q24H [facility] Rx#:[id number] Dexmedetomidine/0.9% NaCl 14.034 (Pmx) 400 mcg In Empty Bag 1 bag @ 0.2 MCG/KG/HR 6.355 mls/hr IV .[id number] [facility] Rx#:[id number] Insulin Regular 100 unit 47.579 99.208 0 In Sodium Chloride 0.9% 100 ml @ Per Protocol IV .Q0M [facility] Rx#:[id number] Tube Feeding 100 120 20 Other 90 Output: Urine 4525 1875 825 Other: Voiding Method Indwelling Catheter Indwelling Catheter ABP, PAP, CO, CI - Last Documented Arterial Blood Pressure 185/65 - Exam GENERAL DESCRIPTION: An elderly female lying in bed in no distress RESPIRATORY SYSTEM: Unlabored breathing , decreased breath sounds at bases HEART: S1 S2 regular rate and rhythm , ABDOMEN: Soft , no tenderness EXTREMITIES: Bilateral lower extremity swelling no redness - Labs CBC & Chem 7: 04/09/23 04:19 04/09/23 04:19 Labs: Abnormal Lab Results - Last 24 Hours (Table) 04/05/23 04/07/23 04/07/23 Range/Units 04:00 12:10 13:19 WBC (3.8-10.6) k/uL RBC (3.80-5.40) m/uL Hgb (11.4-16.0) gm/dL Hct (34.0-46.0) % MCV (80.0-100.0) fL RDW (11.5-15.5) % Neutrophils # (1.3-7.7) k/uL Lymphocytes # (1.0-4.8) k/uL ABG pH (7.35-7.45) ABG HCO3 (21-25) mmol/L ABG Total CO2 (19-24) mmol/L ABG O2 Saturation (94-97) % Chloride (98-107) mmol/L Carbon Dioxide (22-30) mmol/L BUN (7-17) mg/dL Glucose (74-99) mg/dL POC Glucose (mg/dL) 129 H 144 H (70-110) mg/dL Calcium (8.4-10.2) mg/dL RBC Folate 1,371 H (280 - 791) ng/mL 04/07/23 04/07/23 04/07/23 Range/Units 14:08 15:10 16:20 WBC (3.8-10.6) k/uL RBC (3.80-5.40) m/uL Hgb (11.4-16.0) gm/dL Hct (34.0-46.0) % MCV (80.0-100.0) fL RDW (11.5-15.5) % Neutrophils # (1.3-7.7) k/uL Lymphocytes # (1.0-4.8) k/uL ABG pH (7.35-7.45) ABG HCO3 (21-25) mmol/L ABG Total CO2 (19-24) mmol/L ABG O2 Saturation (94-97) % Chloride (98-107) mmol/L Carbon Dioxide (22-30) mmol/L BUN (7-17) mg/dL Glucose (74-99) mg/dL POC Glucose (mg/dL) 169 H 185 H 161 H (70-110) mg/dL Calcium (8.4-10.2) mg/dL RBC Folate (280 - 791) ng/mL 04/07/23 04/07/23 04/07/23 Range/Units 17:27 20:00 21:05 WBC (3.8-10.6) k/uL RBC (3.80-5.40) m/uL Hgb (11.4-16.0) gm/dL Hct (34.0-46.0) % MCV (80.0-100.0) fL RDW (11.5-15.5) % Neutrophils # (1.3-7.7) k/uL Lymphocytes # (1.0-4.8) k/uL ABG pH (7.35-7.45) ABG HCO3 (21-25) mmol/L ABG Total CO2 (19-24) mmol/L ABG O2 Saturation (94-97) % Chloride (98-107) mmol/L Carbon Dioxide (22-30) mmol/L BUN (7-17) mg/dL Glucose (74-99) mg/dL POC Glucose (mg/dL) 148 H 133 H 131 H (70-110) mg/dL Calcium (8.4-10.2) mg/dL RBC Folate (280 - 791) ng/mL 04/07/23 04/07/23 04/08/23 Range/Units 22:03 22:56 00:18 WBC (3.8-10.6) k/uL RBC (3.80-5.40) m/uL Hgb (11.4-16.0) gm/dL Hct (34.0-46.0) % MCV (80.0-100.0) fL RDW (11.5-15.5) % Neutrophils # (1.3-7.7) k/uL Lymphocytes # (1.0-4.8) k/uL ABG pH (7.35-7.45) ABG HCO3 (21-25) mmol/L ABG Total CO2 (19-24) mmol/L ABG O2 Saturation (94-97) % Chloride (98-107) mmol/L Carbon Dioxide (22-30) mmol/L BUN (7-17) mg/dL Glucose (74-99) mg/dL POC Glucose (mg/dL) 135 H 142 H 159 H (70-110) mg/dL Calcium (8.4-10.2) mg/dL RBC Folate (280 - 791) ng/mL 04/08/23 04/08/23 04/08/23 Range/Units 01:05 02:05 03:05 WBC (3.8-10.6) k/uL RBC (3.80-5.40) m/uL Hgb (11.4-16.0) gm/dL Hct (34.0-46.0) % MCV (80.0-100.0) fL RDW (11.5-15.5) % Neutrophils # (1.3-7.7) k/uL Lymphocytes # (1.0-4.8) k/uL ABG pH (7.35-7.45) ABG HCO3 (21-25) mmol/L ABG Total CO2 (19-24) mmol/L ABG O2 Saturation (94-97) % Chloride (98-107) mmol/L Carbon Dioxide (22-30) mmol/L BUN (7-17) mg/dL Glucose (74-99) mg/dL POC Glucose (mg/dL) 164 H 147 H 150 H (70-110) mg/dL Calcium (8.4-10.2) mg/dL RBC Folate (280 - 791) ng/mL 04/08/23 04/08/23 04/08/23 Range/Units 03:57 03:58 03:58 WBC 13.1 H (3.8-10.6) k/uL RBC 2.90 L (3.80-5.40) m/uL Hgb 9.8 L (11.4-16.0) gm/dL Hct 29.1 L (34.0-46.0) % MCV 100.3 H (80.0-100.0) fL RDW 17.2 H (11.5-15.5) % Neutrophils # 11.7 H (1.3-7.7) k/uL Lymphocytes # 0.8 L (1.0-4.8) k/uL ABG pH (7.35-7.45) ABG HCO3 (21-25) mmol/L ABG Total CO2 (19-24) mmol/L ABG O2 Saturation (94-97) % Chloride 108 H (98-107) mmol/L Carbon Dioxide 34 H (22-30) mmol/L BUN 31 H (7-17) mg/dL Glucose 135 H (74-99) mg/dL POC Glucose (mg/dL) 143 H (70-110) mg/dL Calcium 7.7 L (8.4-10.2) mg/dL RBC Folate (280 - 791) ng/mL 04/08/23 04/08/23 04/08/23 Range/Units 04:57 05:41 07:03 WBC (3.8-10.6) k/uL RBC (3.80-5.40) m/uL Hgb (11.4-16.0) gm/dL Hct (34.0-46.0) % MCV (80.0-100.0) fL RDW (11.5-15.5) % Neutrophils # (1.3-7.7) k/uL Lymphocytes # (1.0-4.8) k/uL ABG pH 7.51 H (7.35-7.45) ABG HCO3 31 H (21-25) mmol/L ABG Total CO2 32 H (19-24) mmol/L ABG O2 Saturation 97.8 H (94-97) % Chloride (98-107) mmol/L Carbon Dioxide (22-30) mmol/L BUN (7-17) mg/dL Glucose (74-99) mg/dL POC Glucose (mg/dL) 138 H 128 H (70-110) mg/dL Calcium (8.4-10.2) mg/dL RBC Folate (280 - 791) ng/mL 04/08/23 04/08/23 04/08/23 Range/Units 07:55 09:16 09:30 WBC (3.8-10.6) k/uL RBC (3.80-5.40) m/uL Hgb (11.4-16.0) gm/dL Hct (34.0-46.0) % MCV (80.0-100.0) fL RDW (11.5-15.5) % Neutrophils # (1.3-7.7) k/uL Lymphocytes # (1.0-4.8) k/uL ABG pH 7.50 H (7.35-7.45) ABG HCO3 30 H (21-25) mmol/L ABG Total CO2 31 H (19-24) mmol/L ABG O2 Saturation 97.6 H (94-97) % Chloride (98-107) mmol/L Carbon Dioxide (22-30) mmol/L BUN (7-17) mg/dL Glucose (74-99) mg/dL POC Glucose (mg/dL) 147 H 147 H (70-110) mg/dL Calcium (8.4-10.2) mg/dL RBC Folate (280 - 791) ng/mL 04/08/23 04/08/23 Range/Units 10:04 11:07 WBC (3.8-10.6) k/uL RBC (3.80-5.40) m/uL Hgb (11.4-16.0) gm/dL Hct (34.0-46.0) % MCV (80.0-100.0) fL RDW (11.5-15.5) % Neutrophils # (1.3-7.7) k/uL Lymphocytes # (1.0-4.8) k/uL ABG pH (7.35-7.45) ABG HCO3 (21-25) mmol/L ABG Total CO2 (19-24) mmol/L ABG O2 Saturation (94-97) % Chloride (98-107) mmol/L Carbon Dioxide (22-30) mmol/L BUN (7-17) mg/dL Glucose (74-99) mg/dL POC Glucose (mg/dL) 115 H 140 H (70-110) mg/dL Calcium (8.4-10.2) mg/dL RBC Folate (280 - 791) ng/mL Assessment and Plan (1) Sepsis Current Visit: Yes Status: Acute Code(s): A41.9 - SEPSIS, UNSPECIFIED ORGANISM SNOMED Code(s): 96762216 (2) Gram-negative pneumonia Current Visit: Yes Status: Acute Code(s): J15.6 - PNEUMONIA DUE TO OTHER GRAM-NEGATIVE BACTERIA SNOMED Code(s): 037403263 (3) Leukocytosis Current Visit: Yes Status: Acute Code(s): D72.829 - ELEVATED WHITE BLOOD CELL COUNT, UNSPECIFIED SNOMED Code(s): 353960311 Plan: 1patient with a sepsis/septic shock in this patient with fever elevated white count hypertension tachycardia is source likely aspiration pneumonia likely gram-negative with a sputum currently growing Klebsiella and Enterobacter with some resistant pattern, patient did have a CSF leak and did have extensive T10- S1 spine surgery underlying meningitis less likely but not entirely excluded 2-patient fever pattern has improved and the patient white count is trending down 3Patient has shown clinical improvement the patient fever has resolved the patient has been extubated, clinical picture mostly of ileus as well as pneumonia possible aspiration patient to continue with Zosyn and continue and monitor clinical course closely Dictation was produced using [employer] dictation software. please excuse any grammatical, word or spelling errors. Time with Patient: Less than 30
--- NOTE | 2023-04-09 15:58 | P.PN ---
Subjective Progress Note Date: 04/09/23 Principal diagnosis: Sepsis/pneumonia Patient is a 73-year-old female electively admitted to the hospital 03/21/2023 and this patient who is s/p extensive thoracolumbar spine surgery in this patient who is status post L2-L5 deformity correction did have a L2-S1 interbody fusion and T10-L2 posterior lateral instrumented fusion,patient did have postoperative CSF leak status post complex T10 posterior decompression fusion with dural repair postoperatively the patient did have a respiratory distress requiring intubation and admission to the ICU. On today's evaluation that is 04/09/2023, the patient remains to be afebrile, the patient is hemodynamically stable off of pressor support, the patient is breathing comfortably on 2 L nasal cannula oxygen, the patient is awake and did answer some simple questions seemed to be doing overall better and no new changes has been reported by the nursing staff Patient white count is down to 12.4 hemoglobin is 9.8 creatinine 0.[address] angiogram of the chest that was negative for PE did shows multifocal groundglass opacities, CT abdomen and pelvis was consistent with ileus and no evidence of perforation Objective - Vital Signs Vital signs: Vital Signs Temp 99.4 F 04/09/23 12:00 Pulse 69 04/09/23 14:00 Resp 23 04/09/23 14:00 BP 147/66 04/09/23 14:00 Pulse Ox 95 04/09/23 14:00 FiO2 40 04/08/23 08:02 Intake & Output 04/08/23 04/09/23 04/09/23 18:59 06:59 18:59 Intake Total 1251.440 525.778 519.502 Output Total 3535 1170 995 Balance -2283.560 -644.222 -475.498 Weight 86.7 kg Intake: IV 169 243 474 0.9NS 130 110 80 0.9NS Pressure Bag 39 33 24 Mvi, Adult No.4 with Vit 270 K 10 ml Trace (Conc-1Ml/ Dose) 1 ml Potassium Chloride 18 meq Calcium Gluconate 1 gm Magnesium Sulfate gm 0.5 gm Potassium Phosphate 15 mmol In Amino Acid 5%- D15w 1,000 ml @ 45 mls/hr IV .Q23H2M [facility] Rx#: [id number] Piperacillin-Tazobactam 3 100 100 .375 gm In Sodium Chloride 0.9% 100 ml @ 25 mls/hr IVPB Q8HR [facility] Rx# :[id number] Intake, IV Titration 1062.440 282.778 35.502 Amount Clevidipine Butyrate 25 0.467 118.266 mg In Empty Bag 1 bag @ 1 MG/HR 2 mls/hr IV .Q24H [facility] Rx#:[id number] Insulin Regular 100 unit 25.973 164.512 35.502 In Sodium Chloride 0.9% 100 ml @ Per Protocol IV .Q0M [facility] Rx#:[id number] Mvi, Adult No.4 with Vit 1036 K 10 ml Trace (Conc-1Ml/ Dose) 1 ml Potassium Chloride 18 meq Calcium Gluconate 1 gm Magnesium Sulfate gm 0.5 gm Potassium Phosphate 15 mmol In Amino Acid 5%- D15w 1,000 ml @ 45 mls/hr IV .Q23H2M [facility] Rx#: [id number] Tube Feeding 20 10 Output: Gastric Drainage 50 Urine 3535 1170 645 Stool 300 Other: Voiding Method Indwelling Catheter Indwelling Catheter # Bowel Movements 1 ABP, PAP, CO, CI - Last Documented Arterial Blood Pressure 179/64 - Exam GENERAL DESCRIPTION: An elderly female lying in bed in no distress RESPIRATORY SYSTEM: Unlabored breathing , decreased breath sounds at bases HEART: S1 S2 regular rate and rhythm , ABDOMEN: Soft , no tenderness EXTREMITIES: Bilateral lower extremity swelling no redness - Labs CBC & Chem 7: 04/09/23 04:19 04/09/23 04:19 Labs: Abnormal Lab Results - Last 24 Hours (Table) 04/08/23 04/08/23 04/08/23 Range/Units 15:56 18:45 19:53 WBC (3.8-10.6) k/uL RBC (3.80-5.40) m/uL Hgb (11.4-16.0) gm/dL Hct (34.0-46.0) % MCV (80.0-100.0) fL RDW (11.5-15.5) % Neutrophils # (1.3-7.7) k/uL Lymphocytes # (1.0-4.8) k/uL Chloride (98-107) mmol/L BUN (7-17) mg/dL Glucose (74-99) mg/dL POC Glucose (mg/dL) 140 H 116 H 173 H (70-110) mg/dL Calcium (8.4-10.2) mg/dL Total Protein (6.3-8.2) g/dL Albumin (3.5-5.0) g/dL 04/08/23 04/08/23 04/08/23 Range/Units 20:48 21:51 23:53 WBC (3.8-10.6) k/uL RBC (3.80-5.40) m/uL Hgb (11.4-16.0) gm/dL Hct (34.0-46.0) % MCV (80.0-100.0) fL RDW (11.5-15.5) % Neutrophils # (1.3-7.7) k/uL Lymphocytes # (1.0-4.8) k/uL Chloride (98-107) mmol/L BUN (7-17) mg/dL Glucose (74-99) mg/dL POC Glucose (mg/dL) 178 H 135 H 166 H (70-110) mg/dL Calcium (8.4-10.2) mg/dL Total Protein (6.3-8.2) g/dL Albumin (3.5-5.0) g/dL 04/09/23 04/09/23 04/09/23 Range/Units 00:57 01:55 03:08 WBC (3.8-10.6) k/uL RBC (3.80-5.40) m/uL Hgb (11.4-16.0) gm/dL Hct (34.0-46.0) % MCV (80.0-100.0) fL RDW (11.5-15.5) % Neutrophils # (1.3-7.7) k/uL Lymphocytes # (1.0-4.8) k/uL Chloride (98-107) mmol/L BUN (7-17) mg/dL Glucose (74-99) mg/dL POC Glucose (mg/dL) 169 H 138 H 120 H (70-110) mg/dL Calcium (8.4-10.2) mg/dL Total Protein (6.3-8.2) g/dL Albumin (3.5-5.0) g/dL 04/09/23 04/09/23 04/09/23 Range/Units 03:49 04:19 04:19 WBC 12.4 H (3.8-10.6) k/uL RBC 2.94 L (3.80-5.40) m/uL Hgb 9.8 L (11.4-16.0) gm/dL Hct 29.6 L (34.0-46.0) % MCV 100.7 H (80.0-100.0) fL RDW 16.4 H (11.5-15.5) % Neutrophils # 10.9 H (1.3-7.7) k/uL Lymphocytes # 0.8 L (1.0-4.8) k/uL Chloride 111 H (98-107) mmol/L BUN 33 H (7-17) mg/dL Glucose 126 H (74-99) mg/dL POC Glucose (mg/dL) 113 H (70-110) mg/dL Calcium 8.1 L (8.4-10.2) mg/dL Total Protein 5.2 L (6.3-8.2) g/dL Albumin 2.6 L (3.5-5.0) g/dL 04/09/23 04/09/23 04/09/23 Range/Units 05:01 05:52 06:54 WBC (3.8-10.6) k/uL RBC (3.80-5.40) m/uL Hgb (11.4-16.0) gm/dL Hct (34.0-46.0) % MCV (80.0-100.0) fL RDW (11.5-15.5) % Neutrophils # (1.3-7.7) k/uL Lymphocytes # (1.0-4.8) k/uL Chloride (98-107) mmol/L BUN (7-17) mg/dL Glucose (74-99) mg/dL POC Glucose (mg/dL) 170 H 173 H 140 H (70-110) mg/dL Calcium (8.4-10.2) mg/dL Total Protein (6.3-8.2) g/dL Albumin (3.5-5.0) g/dL 04/09/23 04/09/23 04/09/23 Range/Units 09:44 10:50 11:55 WBC (3.8-10.6) k/uL RBC (3.80-5.40) m/uL Hgb (11.4-16.0) gm/dL Hct (34.0-46.0) % MCV (80.0-100.0) fL RDW (11.5-15.5) % Neutrophils # (1.3-7.7) k/uL Lymphocytes # (1.0-4.8) k/uL Chloride (98-107) mmol/L BUN (7-17) mg/dL Glucose (74-99) mg/dL POC Glucose (mg/dL) 66 L 132 H 132 H (70-110) mg/dL Calcium (8.4-10.2) mg/dL Total Protein (6.3-8.2) g/dL Albumin (3.5-5.0) g/dL 04/09/23 04/09/23 Range/Units 13:03 14:10 WBC (3.8-10.6) k/uL RBC (3.80-5.40) m/uL Hgb (11.4-16.0) gm/dL Hct (34.0-46.0) % MCV (80.0-100.0) fL RDW (11.5-15.5) % Neutrophils # (1.3-7.7) k/uL Lymphocytes # (1.0-4.8) k/uL Chloride (98-107) mmol/L BUN (7-17) mg/dL Glucose (74-99) mg/dL POC Glucose (mg/dL) 111 H 134 H (70-110) mg/dL Calcium (8.4-10.2) mg/dL Total Protein (6.3-8.2) g/dL Albumin (3.5-5.0) g/dL Assessment and Plan (1) Sepsis Current Visit: Yes Status: Acute Code(s): A41.9 - SEPSIS, UNSPECIFIED ORGANISM SNOMED Code(s): 44312816 (2) Gram-negative pneumonia Current Visit: Yes Status: Acute Code(s): J15.6 - PNEUMONIA DUE TO OTHER GRAM-NEGATIVE BACTERIA SNOMED Code(s): 639410221 (3) Leukocytosis Current Visit: Yes Status: Acute Code(s): D72.829 - ELEVATED WHITE BLOOD CELL COUNT, UNSPECIFIED SNOMED Code(s): 547896217 Plan: 1patient with a sepsis/septic shock in this patient with fever elevated white count hypertension tachycardia is source likely aspiration pneumonia likely gram-negative with a sputum currently growing Klebsiella and Enterobacter with some resistant pattern, patient subsequently did have a CT that heavy suspicious for ileus and concern for aspiration pneumonia 2-patient fever pattern has improved and the patient white count is trending down 3Patient has shown clinical improvement the patient will continue with Zosyn and continue and monitor clinical course closely Family the bedside questions were answered Dictation was produced using [employer] dictation software. please excuse any grammatical, word or spelling errors. Time with Patient: Less than 30
[2023-04-09 16:17] LABS: Glucose,Whole Blood 119 mg/dL (70-110)
[2023-04-09] MEDS: RIVAROXABAN 20 MG TAB PO SCH (16:45)
[2023-04-09] MEDS: [UNRECOGNIZED DRUG - REMARK] IV SCH ×7 (16:45)
[2023-04-09 17:16] LABS: Glucose,Whole Blood 103 mg/dL (70-110)
[2023-04-09 18:10] LABS: Glucose,Whole Blood 138 mg/dL (70-110)
[2023-04-09 19:05] LABS: Glucose,Whole Blood 124 mg/dL (70-110)
[2023-04-09 20:02] LABS: Glucose,Whole Blood 107 mg/dL (70-110)
[2023-04-09 21:07] LABS: Glucose,Whole Blood 147 mg/dL (70-110)
[2023-04-09 21:38] LABS: Magnesium 2.2 mg/dL (1.6-2.3)
[2023-04-09 22:01] LABS: Potassium 3.2 mmol/L (3.5-5.1)
[2023-04-09 22:11] LABS: Glucose,Whole Blood 146 mg/dL (70-110)
[2023-04-09 23:03] LABS: Glucose,Whole Blood 125 mg/dL (70-110)
[2023-04-09] MEDS: POTASSIUM BICARBONATE/CIT AC 20 MEQ TABLET.EFF NG-TUBE SCH (23:37)
[2023-04-09] MEDS: hydrALAZINE HCL 20 MG/ML 1 ML VIAL IVP PRN (23:49)
[2023-04-10 00:27] LABS: Glucose,Whole Blood 107 mg/dL (70-110)
[2023-04-10] MEDS: POTASSIUM BICARBONATE/CIT AC 20 MEQ TABLET.EFF NG-TUBE SCH ×4 (00:34→22:10)
[2023-04-10 01:11] LABS: Glucose,Whole Blood 143 mg/dL (70-110)
[2023-04-10 02:01] LABS: Glucose,Whole Blood 154 mg/dL (70-110)
[2023-04-10 03:06] LABS: Glucose,Whole Blood 139 mg/dL (70-110)
[2023-04-10 04:00] LABS: Glucose,Whole Blood 130 mg/dL (70-110)
[2023-04-10 04:51] LABS: Basophils % (A) 0 %; Eosinophils % (A) 0 %; HCT 29.9 % (34.0-46.0); HGB 9.8 gm/dL (11.4-16.0); Hypochromasia Slight; Lymphocytes # (A) 0.9 k/uL (1.0-4.8); Lymphocytes % (A) 11 %; MCHC 32.9 g/dL (31.0-37.0); MCV 100.1 fL (80.0-100.0); Macrocytosis Slight; Mean Platelet Volume 8.8; Monocytes # (A) 0.4 k/uL (0-1.0); Monocytes % (A) 5 %; Neutrophils # (A) 7.1 k/uL (1.3-7.7); Neutrophils % (A) 83 %; Platelet Count 339 k/uL (150-450); RBC 2.98 m/uL (3.80-5.40); RDW 15.9 % (11.5-15.5); WBC 8.5 k/uL (3.8-10.6)
[2023-04-10 05:03] LABS: ALT 32 U/L (4-34); AST 37 U/L (14-36); African American GFR (CKD) >90 (>60 ml/min/1.73 sqM); Albumin 2.6 g/dL (3.5-5.0); Alkaline Phosphatase 75 U/L (38-126); Anion Gap 6 mmol/L; Blood Urea Nitrogen 33 mg/dL (7-17); Calcium 8.2 mg/dL (8.4-10.2); Carbon Dioxide 25 mmol/L (22-30); Chloride 113 mmol/L (98-107); Glucose 116 mg/dL (74-99); Magnesium 2.2 mg/dL (1.6-2.3); Non-African American GFR(CKD) >90 (>60 ml/min/1.73 sqM); Phosphorus 3.1 mg/dL (2.5-4.5); Potassium 3.6 mmol/L (3.5-5.1); Sodium 144 mmol/L (137-145); Total Bilirubin 0.5 mg/dL (0.2-1.3); Total Protein 5.3 g/dL (6.3-8.2)
[2023-04-10 05:04] LABS: Glucose,Whole Blood 109 mg/dL (70-110)
[2023-04-10] MEDS ORDERED: Potassium Replacement Protocol 1 EACH MISC MISCELLANE PRN ×2 (05:09→20:46)
[2023-04-10] MEDS: ACETAMINOPHEN IV (For NPO) 1,000 MG in EMPTY BAG 1 BAG IVPB SCH (05:25)
[2023-04-10 06:00] LABS: Glucose,Whole Blood 151 mg/dL (70-110)
[2023-04-10] MEDS ORDERED: POTASSIUM BICARBONATE/CIT AC 20 MEQ TABLET.EFF NG-TUBE SCH ×2 (06:00→23:00)
[2023-04-10 07:02] LABS: Glucose,Whole Blood 152 mg/dL (70-110)
--- NOTE | 2023-04-10 07:11 | XR ---
EXAMINATION TYPE: XR chest 1V portable DATE OF EXAM: 04/10/2023 5:45 AM COMPARISON: Chest radiographs from 04/08/2023 TECHNIQUE: XR chest 1V portable Frontal view of the chest. CLINICAL INDICATION:Female, 73 years old with history of assess lungs; FINDINGS: Lungs/Pleura: No evidence of focal consolidation or pneumothorax. Blunting of the costophrenic angles is present. Pulmonary vascularity: Pulmonary vascular congestion. Heart/mediastinum: Cardiomediastinal silhouette is enlarged and stable. Musculoskeletal: No acute osseous pathology. Excision changes of the spine. Other findings: Surgical clips project over the heart. Lines/Tubes: Nasogastric tube with its distal tip and side-port projecting under the diaphragm. Right internal jugular central venous catheter with distal tip at the cavoatrial junction. IMPRESSION: Cardiomegaly and mild pulmonary vascular congestion. Correlate with BNP for congestive heart failure/ volume overload.
--- NOTE | 2023-04-10 07:29 | P.PN ---
Subjective Progress Note Date: 04/09/23 Principal diagnosis: Lumbar degenerative scoliosis LE weakness LE radiculopathy Pt s/e this AM. She continues to show improvement. She is more awake and alert today and has been extubated. She is following commands. She has difficulty verbalizing at this time but is able to nod yes and no. She states no pain currently. She moves her legs and arms on command. Arms are weaker than legs currently. She is sitting in a 45deg angle and she states no PEREZ, blurred vision or double vision. NSG at bedside as well as medicine at the time. Discussed case with both. She is now having regular bowel movements so much so she needed a management system so we will decrease her motility meds. She is making good urine. Her BP and O2 readings are stable. Objective - Vital Signs Vital signs: Vital Signs Temp 98.7 F 04/09/23 08:00 Pulse 76 04/09/23 09:02 Resp 21 04/09/23 09:00 BP 144/63 04/09/23 09:00 Pulse Ox 99 04/09/23 09:00 FiO2 40 04/08/23 08:02 Intake & Output 04/08/23 04/09/23 04/09/23 18:59 06:59 18:59 Intake Total 1251.440 525.778 152.433 Output Total 3535 1170 575 Balance -2283.560 -644.222 -422.567 Intake: IV 169 243 139 0.9NS 130 110 30 0.9NS Pressure Bag 39 33 9 Piperacillin-Tazobactam 3 100 100 .375 gm In Sodium Chloride 0.9% 100 ml @ 25 mls/hr IVPB Q8HR [facility] Rx# :[id number] Intake, IV Titration 1062.440 282.778 13.433 Amount Clevidipine Butyrate 25 0.467 118.266 mg In Empty Bag 1 bag @ 1 MG/HR 2 mls/hr IV .Q24H [facility] Rx#:[id number] Insulin Regular 100 unit 25.973 164.512 13.433 In Sodium Chloride 0.9% 100 ml @ Per Protocol IV .Q0M [facility] Rx#:[id number] Mvi, Adult No.4 with Vit 1036 K 10 ml Trace (Conc-1Ml/ Dose) 1 ml Potassium Chloride 18 meq Calcium Gluconate 1 gm Magnesium Sulfate gm 0.5 gm Potassium Phosphate 15 mmol In Amino Acid 5%- D15w 1,000 ml @ 45 mls/hr IV .Q23H2M [facility] Rx#: [id number] Tube Feeding 20 Output: Gastric Drainage 50 Urine 3535 1170 225 Stool 300 Other: Voiding Method Indwelling Catheter Indwelling Catheter # Bowel Movements 1 ABP, PAP, CO, CI - Last Documented Arterial Blood Pressure 184/60 - Exam Awake, alert, able to follow commands. Poor verbalization currently. Abdomen is soft nondistended she has had several bowel movements Edema improving, still with some pitting edema 1+ UE b/l Neg Babinski Neg Cardona's No Clonus Dressing CDI moving b/l LE wiggles toes, DF and PF with +3 Wiggles fingers, poor movement of UE currently and have to prompt her to look at her arms to move them. When this is done she does move her fingers and wrists with +2-3. Arms she will not hold up currently. SITL C5-T1 and L2-S1. Neg Carlos's b/l currently. Distal pulses palpable. - Labs CBC & Chem 7: 04/10/23 04:40 04/10/23 04:40 Labs: Abnormal Lab Results - Last 24 Hours (Table) 04/08/23 04/08/23 04/08/23 Range/Units 10:04 11:07 12:20 WBC (3.8-10.6) k/uL RBC (3.80-5.40) m/uL Hgb (11.4-16.0) gm/dL Hct (34.0-46.0) % MCV (80.0-100.0) fL RDW (11.5-15.5) % Neutrophils # (1.3-7.7) k/uL Lymphocytes # (1.0-4.8) k/uL Chloride (98-107) mmol/L BUN (7-17) mg/dL Glucose (74-99) mg/dL POC Glucose (mg/dL) 115 H 140 H 135 H (70-110) mg/dL Calcium (8.4-10.2) mg/dL Total Protein (6.3-8.2) g/dL Albumin (3.5-5.0) g/dL 04/08/23 04/08/2323 Range/Units 13:08 14:23 14:59 WBC (3.8-10.6) k/uL RBC (3.80-5.40) m/uL Hgb (11.4-16.0) gm/dL Hct (34.0-46.0) % MCV (80.0-100.0) fL RDW (11.5-15.5) % Neutrophils # (1.3-7.7) k/uL Lymphocytes # (1.0-4.8) k/uL Chloride (98-107) mmol/L BUN (7-17) mg/dL Glucose (74-99) mg/dL POC Glucose (mg/dL) 136 H 142 H 133 H (70-110) mg/dL Calcium (8.4-10.2) mg/dL Total Protein (6.3-8.2) g/dL Albumin (3.5-5.0) g/dL 04/08/23 04/08/23 04/08/23 Range/Units 15:56 18:45 19:53 WBC (3.8-10.6) k/uL RBC (3.80-5.40) m/uL Hgb (11.4-16.0) gm/dL Hct (34.0-46.0) % MCV (80.0-100.0) fL RDW (11.5-15.5) % Neutrophils # (1.3-7.7) k/uL Lymphocytes # (1.0-4.8) k/uL Chloride (98-107) mmol/L BUN (7-17) mg/dL Glucose (74-99) mg/dL POC Glucose (mg/dL) 140 H 116 H 173 H (70-110) mg/dL Calcium (8.4-10.2) mg/dL Total Protein (6.3-8.2) g/dL Albumin (3.5-5.0) g/dL 04/08/23 04/08/23 04/08/23 Range/Units 20:48 21:51 23:53 WBC (3.8-10.6) k/uL RBC (3.80-5.40) m/uL Hgb (11.4-16.0) gm/dL Hct (34.0-46.0) % MCV (80.0-100.0) fL RDW (11.5-15.5) % Neutrophils # (1.3-7.7) k/uL Lymphocytes # (1.0-4.8) k/uL Chloride (98-107) mmol/L BUN (7-17) mg/dL Glucose (74-99) mg/dL POC Glucose (mg/dL) 178 H 135 H 166 H (70-110) mg/dL Calcium (8.4-10.2) mg/dL Total Protein (6.3-8.2) g/dL Albumin (3.5-5.0) g/dL 04/09/23 04/09/23 04/09/23 Range/Units 00:57 01:55 03:08 WBC (3.8-10.6) k/uL RBC (3.80-5.40) m/uL Hgb (11.4-16.0) gm/dL Hct (34.0-46.0) % MCV (80.0-100.0) fL RDW (11.5-15.5) % Neutrophils # (1.3-7.7) k/uL Lymphocytes # (1.0-4.8) k/uL Chloride (98-107) mmol/L BUN (7-17) mg/dL Glucose (74-99) mg/dL POC Glucose (mg/dL) 169 H 138 H 120 H (70-110) mg/dL Calcium (8.4-10.2) mg/dL Total Protein (6.3-8.2) g/dL Albumin (3.5-5.0) g/dL 04/09/23 04/09/23 04/09/23 Range/Units 03:49 04:19 04:19 WBC 12.4 H (3.8-10.6) k/uL RBC 2.94 L (3.80-5.40) m/uL Hgb 9.8 L (11.4-16.0) gm/dL Hct 29.6 L (34.0-46.0) % MCV 100.7 H (80.0-100.0) fL RDW 16.4 H (11.5-15.5) % Neutrophils # 10.9 H (1.3-7.7) k/uL Lymphocytes # 0.8 L (1.0-4.8) k/uL Chloride 111 H (98-107) mmol/L BUN 33 H (7-17) mg/dL Glucose 126 H (74-99) mg/dL POC Glucose (mg/dL) 113 H (70-110) mg/dL Calcium 8.1 L (8.4-10.2) mg/dL Total Protein 5.2 L (6.3-8.2) g/dL Albumin 2.6 L (3.5-5.0) g/dL 04/09/23 04/09/23 04/09/23 Range/Units 05:01 05:52 06:54 WBC (3.8-10.6) k/uL RBC (3.80-5.40) m/uL Hgb (11.4-16.0) gm/dL Hct (34.0-46.0) % MCV (80.0-100.0) fL RDW (11.5-15.5) % Neutrophils # (1.3-7.7) k/uL Lymphocytes # (1.0-4.8) k/uL Chloride (98-107) mmol/L BUN (7-17) mg/dL Glucose (74-99) mg/dL POC Glucose (mg/dL) 170 H 173 H 140 H (70-110) mg/dL Calcium (8.4-10.2) mg/dL Total Protein (6.3-8.2) g/dL Albumin (3.5-5.0) g/dL 04/09/23 Range/Units 09:44 WBC (3.8-10.6) k/uL RBC (3.80-5.40) m/uL Hgb (11.4-16.0) gm/dL Hct (34.0-46.0) % MCV (80.0-100.0) fL RDW (11.5-15.5) % Neutrophils # (1.3-7.7) k/uL Lymphocytes # (1.0-4.8) k/uL Chloride (98-107) mmol/L BUN (7-17) mg/dL Glucose (74-99) mg/dL POC Glucose (mg/dL) 66 L (70-110) mg/dL Calcium (8.4-10.2) mg/dL Total Protein (6.3-8.2) g/dL Albumin (3.5-5.0) g/dL Assessment and Plan Assessment: 73 yo female with degenerative lumbar scoliosis surgery 03/21/23 and 03/29/23 POD 21 and 13 from lumbar decompression fusion T10-P with 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 Notes reviewed from PCC, MED, [facility], ID. PCC and Medicine primary ICU mgt. Vent and meds, pressers per ICU team. -Activity: Bedrest currently. Turn q2. Check dressing regularly. Elevate heels. Dickens boots. PT to move legs and arms to decrease edema. OK For HOB 15-20 deg. Increase activity as tolerated. -Pain control: Vented, sedated -Meds: [reviewed] -GI ppx: cont with aggressive bowel reg. -Garnett catheter, con change per protocol -DVT PPX: Mechanical, Xarelto -Cont Enteral feeds -Hygiene: Maintain dressing clean and dry. Meticulous cleaning after BMs away from incision site -No drain -slow improvements noted. -Dispo: [Pending]
[2023-04-10] MEDS: IPRATROPIUM-ALBUTEROL 3 ML NEB INHALATION SCH ×4 (07:31→19:39)
--- NOTE | 2023-04-10 08:45 | P.PN ---
Subjective Progress Note Date: 04/10/23 Principal diagnosis: 1. L1-S1 spondylosis with stenosis 2. L1-S1 spondylolisthesis 3. Lower extremity radiculopathy 4. Low back pain 5. Lower extremity weakness Patient seen and examined this morning. Patient is awake and resting comfortably in bed. Current vitals: BP 165/72, HR 77, Resp 19, O2 sat 97% on 2L NC. Patient is having difficulty with verbalizing answers, she is able to nod her head yes or no. She is using her facial expressions as well. Patient was turned this morning to change her surgical dressing, Surgical incision is well approximated and sutures and trinh intact. There is no active drainage noted. There is a significant improvement in generalized edema, +1 non pitting edema noted to bilateral upper and lower extremities. Liquid bowel movements continue, fecal management system in place and patent. SCDs and Prafo boots are present to lower extremities. Continue with PT to perform ROM exercises to her extremities and joints. Objective - Vital Signs Vital signs: Vital Signs Temp 97.7 F 04/10/23 00:00 Pulse 74 04/10/23 07:41 Resp 19 04/10/23 07:00 BP 165/72 04/10/23 07:00 Pulse Ox 97 04/10/23 07:33 FiO2 40 04/08/23 08:02 Intake & Output 04/09/23 04/10/23 04/10/23 18:59 06:59 18:59 Intake Total 2501.676 8188.380 8.08 Output Total 1340 1005 Balance 592.093 250.380 8.08 Weight 86.7 kg Intake: IV 806 854 0.9NS 120 130 0.9NS Pressure Bag 36 39 Mvi, Adult No.4 with Vit 450 585 K 10 ml Trace (Conc-1Ml/ Dose) 1 ml Potassium Chloride 18 meq Calcium Gluconate 1 gm Magnesium Sulfate gm 0.5 gm Potassium Phosphate 15 mmol In Amino Acid 5%- D15w 1,000 ml @ 45 mls/hr IV .Q23H2M [facility] Rx#: [id number] Piperacillin-Tazobactam 3 200 100 .375 gm In Sodium Chloride 0.9% 100 ml @ 25 mls/hr IVPB Q8HR [facility] Rx# :[id number] Intake, IV Titration 1046.093 271.380 8.08 Amount ACETAMINOPHEN IV (For NPO 200 ) 1,000 mg In Empty Bag 1 bag @ 400 mls/hr IVPB Q6HR [facility] Rx#:[id number] Insulin Regular 100 unit 59.843 71.380 8.08 In Sodium Chloride 0.9% 100 ml @ Per Protocol IV .Q0M [facility] Rx#:[id number] Mvi, Adult No.4 with Vit 986.25 K 10 ml Trace (Conc-1Ml/ Dose) 1 ml Potassium Chloride 18 meq Calcium Gluconate 1 gm Magnesium Sulfate gm 0.5 gm Potassium Phosphate 15 mmol In Amino Acid 5%- D15w 1,000 ml @ 45 mls/hr IV .Q23H2M [facility] Rx#: [id number] Tube Feeding 50 130 Other 30 Output: Gastric Drainage 50 Urine 890 1005 Stool 400 Other: Voiding Method Indwelling Catheter Indwelling Catheter ABP, PAP, CO, CI - Last Documented Arterial Blood Pressure 200/62 - Exam Physical Examination General: The patient is awake and alert, in no acute distress Skin: Skin is warm and dry with no obvious rashes or lesions. There is +1 generalized edema in bilateral upper and lower extremities. Surgical incision to the thoracolumbar spine, incision is well approximated and healing well with trinh and sutures intact. No active drainage noted. Eye: Pupils are equal, round and reactive to light, extra-ocular movements are intact; there is normal conjunctiva bilaterally. Neck: The neck is supple, there is no tenderness and ROM intact. Cardiovascular: There is a regular rate and rhythm. No murmur, rub or gallop is appreciated. Gastrointestinal: Soft, non-distended, non-tender abdomen. He continues with loose stools, fecal management system is in place. Back: There is no tenderness to palpation in the midline, paralumbar, parathoracic or buttocks region. There is no obvious deformity . Musculoskeletal: ROM limited secondary to weakness and stiffness from bedrest and immobility. Patient is able to wiggle her toes on both feet and pump her ankles. She is able to wiggle her fingers on both hands. Neurological: Negative Hoffmans, babinski, and clonus signs. Psychiatric: Cooperative, appropriate mood & affect. - Labs CBC & Chem 7: 04/10/23 04:40 04/10/23 04:40 Labs: Abnormal Lab Results - Last 24 Hours (Table) 04/09/23 04/09/23 04/09/23 Range/Units 09:44 10:50 11:55 RBC (3.80-5.40) m/uL Hgb (11.4-16.0) gm/dL Hct (34.0-46.0) % MCV (80.0-100.0) fL RDW (11.5-15.5) % Lymphocytes # (1.0-4.8) k/uL Potassium (3.5-5.1) mmol/L Chloride (98-107) mmol/L BUN (7-17) mg/dL Glucose (74-99) mg/dL POC Glucose (mg/dL) 66 L 132 H 132 H (70-110) mg/dL Calcium (8.4-10.2) mg/dL AST (14-36) U/L Total Protein (6.3-8.2) g/dL Albumin (3.5-5.0) g/dL 04/09/23 04/09/23 04/09/23 Range/Units 13:03 14:10 15:23 RBC (3.80-5.40) m/uL Hgb (11.4-16.0) gm/dL Hct (34.0-46.0) % MCV (80.0-100.0) fL RDW (11.5-15.5) % Lymphocytes # (1.0-4.8) k/uL Potassium (3.5-5.1) mmol/L Chloride (98-107) mmol/L BUN (7-17) mg/dL Glucose (74-99) mg/dL POC Glucose (mg/dL) 111 H 134 H 133 H (70-110) mg/dL Calcium (8.4-10.2) mg/dL AST (14-36) U/L Total Protein (6.3-8.2) g/dL Albumin (3.5-5.0) g/dL 04/09/23 04/09/23 04/09/23 Range/Units 16:15 18:09 19:04 RBC (3.80-5.40) m/uL Hgb (11.4-16.0) gm/dL Hct (34.0-46.0) % MCV (80.0-100.0) fL RDW (11.5-15.5) % Lymphocytes # (1.0-4.8) k/uL Potassium (3.5-5.1) mmol/L Chloride (98-107) mmol/L BUN (7-17) mg/dL Glucose (74-99) mg/dL POC Glucose (mg/dL) 119 H 138 H 124 H (70-110) mg/dL Calcium (8.4-10.2) mg/dL AST (14-36) U/L Total Protein (6.3-8.2) g/dL Albumin (3.5-5.0) g/dL 04/09/23 04/09/23 04/09/23 Range/Units 21:06 21:20 22:10 RBC (3.80-5.40) m/uL Hgb (11.4-16.0) gm/dL Hct (34.0-46.0) % MCV (80.0-100.0) fL RDW (11.5-15.5) % Lymphocytes # (1.0-4.8) k/uL Potassium 3.2 L (3.5-5.1) mmol/L Chloride (98-107) mmol/L BUN (7-17) mg/dL Glucose (74-99) mg/dL POC Glucose (mg/dL) 147 H 146 H (70-110) mg/dL Calcium (8.4-10.2) mg/dL AST (14-36) U/L Total Protein (6.3-8.2) g/dL Albumin (3.5-5.0) g/dL 04/09/23 04/09/23 04/10/23 Range/Units 22:42 23:02 01:10 RBC (3.80-5.40) m/uL Hgb (11.4-16.0) gm/dL Hct (34.0-46.0) % MCV (80.0-100.0) fL RDW (11.5-15.5) % Lymphocytes # (1.0-4.8) k/uL Potassium 2.9 L (3.5-5.1) mmol/L Chloride (98-107) mmol/L BUN (7-17) mg/dL Glucose (74-99) mg/dL POC Glucose (mg/dL) 125 H 143 H (70-110) mg/dL Calcium (8.4-10.2) mg/dL AST (14-36) U/L Total Protein (6.3-8.2) g/dL Albumin (3.5-5.0) g/dL 04/10/23 04/10/23 04/10/23 Range/Units 02:00 03:05 03:58 RBC (3.80-5.40) m/uL Hgb (11.4-16.0) gm/dL Hct (34.0-46.0) % MCV (80.0-100.0) fL RDW (11.5-15.5) % Lymphocytes # (1.0-4.8) k/uL Potassium (3.5-5.1) mmol/L Chloride (98-107) mmol/L BUN (7-17) mg/dL Glucose (74-99) mg/dL POC Glucose (mg/dL) 154 H 139 H 130 H (70-110) mg/dL Calcium (8.4-10.2) mg/dL AST (14-36) U/L Total Protein (6.3-8.2) g/dL Albumin (3.5-5.0) g/dL 04/10/23 04/10/23 04/10/23 Range/Units 04:40 04:40 05:59 RBC 2.98 L (3.80-5.40) m/uL Hgb 9.8 L (11.4-16.0) gm/dL Hct 29.9 L (34.0-46.0) % MCV 100.1 H (80.0-100.0) fL RDW 15.9 H (11.5-15.5) % Lymphocytes # 0.9 L (1.0-4.8) k/uL Potassium (3.5-5.1) mmol/L Chloride 113 H (98-107) mmol/L BUN 33 H (7-17) mg/dL Glucose 116 H (74-99) mg/dL POC Glucose (mg/dL) 151 H (70-110) mg/dL Calcium 8.2 L (8.4-10.2) mg/dL AST 37 H (14-36) U/L Total Protein 5.3 L (6.3-8.2) g/dL Albumin 2.6 L (3.5-5.0) g/dL 04/10/23 Range/Units 07:01 RBC (3.80-5.40) m/uL Hgb (11.4-16.0) gm/dL Hct (34.0-46.0) % MCV (80.0-100.0) fL RDW (11.5-15.5) % Lymphocytes # (1.0-4.8) k/uL Potassium (3.5-5.1) mmol/L Chloride (98-107) mmol/L BUN (7-17) mg/dL Glucose (74-99) mg/dL POC Glucose (mg/dL) 152 H (70-110) mg/dL Calcium (8.4-10.2) mg/dL AST (14-36) U/L Total Protein (6.3-8.2) g/dL Albumin (3.5-5.0) g/dL Assessment and Plan Assessment: Postop Day 12: Irrigation and Debridement with revision dural repair lumbar spine ; Postop Day 20: [id number] decompression and fusion 1. Aspiration Pneumonia 2. Post-op Ileus 3. Post-op anemia-resolved 4. L1-S1 spondylosis with stenosis 5. L1-S1 spondylolisthesis 6. Lower extremity radiculopathy 7. Low back pain 8. Lower extremity weakness Plan: -Appreciate art consultant and team management. -Activity: ROM exercises of extremities, turn 2hrs, position with pillows -Pain control: Adequate at this time -Meds: reviewed -GI ppx: protonix -DVT PPX: SCDs and TEDS -Hygiene: Maintain dressing clean and dry. Meticulous cleaning after BMs away from the incision site -Dispo: Clinically pending *I reviewed and discussed this case with my attending Dr. Duong, whom has reviewed this chart and films and is in agreement with assessment and plan of care as outlined above. I have personally seen and examined the patient, performed the documentation and the assessment and plan as written. Number of minutes spent on the visit: 20m.
[2023-04-10] MEDS: PIPERACILLIN-TAZOBACTAM 3.375 GM in SODIUM CHLORIDE 0.9% 100 ML IVPB SCH ×3 (08:54→23:07)
[2023-04-10 09:09] LABS: Glucose,Whole Blood 93 mg/dL (70-110)
[2023-04-10] MEDS: GABAPENTIN 100 MG CAP PO SCH ×3 (09:12→21:01)
[2023-04-10] MEDS: lisinopriL 10 MG TAB PO SCH (09:12)
[2023-04-10] MEDS: PANTOPRAZOLE 40 MG/10 ML VIAL IV SCH (09:12)
[2023-04-10] MEDS: SENNOSIDES-DOCUSATE SODIUM 1 EACH TAB PO SCH ×2 (09:12→20:37)
[2023-04-10] MEDS: METOPROLOL TARTRATE 25 MG TAB PO SCH ×2 (09:12→20:34)
[2023-04-10] MEDS: AMIODARONE 200 MG TAB PO SCH ×2 (09:12→20:34)
[2023-04-10 10:13] LABS: Glucose,Whole Blood 116 mg/dL (70-110)
[2023-04-10 12:05] LABS: Glucose,Whole Blood 171 mg/dL (70-110)
--- NOTE | 2023-04-10 12:24 | P.PN ---
Subjective Progress Note Date: 04/10/23 Principal diagnosis: Status post [id number] decompression and fusion postoperative day #20 Status post irrigation and debridement with revision/juvenile repair of the lumbar spine postoperative day #12 I am seeing this patient in new consultation today 03/22/2023 status postoperative day #1 following an elective T10 to pelvis decompression and fusion. Patient is a 72-year-old female with past medical history significant for chronic back pain and lumbar radiculopathy, diabetes mellitus type 2, hyperlipidemia, hypertension. Patient has been complaining of lumbar radiculopathy like symptoms earlier this year, and was evaluated by Dr. Duong. She was found to have multilevel spondylosis and spondylolisthesis. She underwent an elective T10 to pelvis decompression and fusion yesterday with Dr. Duong. She did have some postoperative hypotension. Estimated blood loss was reported as 700 ML's. She was given 1 unit PRBC, and a total of 2.5 L normal saline bolus. Blood pressures are now normotensive. Urine output is adequate in the order of 50-60 ML's per hour. Patient was extubated successfully in recovery, currently on 4 L/m nasal cannula, in no acute distress. Postoperative chest x-ray shows no acute cardiopulmonary processes. There is a right sided intrajugular central line catheter near the cavoatrial junction. There were also some postsurgical changes. Patient is currently supine in bed. No focal neurological deficits. She is able to move all 4 extremities. Denies any sensation disturbances or saddle anesthesia. Postoperative CBC shows WBC count of 11.7, hemoglobin 8, hematocrit 23, platelets 173. BMP sodium 136, potassium 3.8, chloride 109, serum bicarb 11, BUN 18, creatinine 0.6, glucose 220. Magnesium was low at 1.3. Normal saline with 20 mEq of potassium is infusing at 50 ML's per hour. Nasal swab was positive and colonized with MSSA preoperatively, and the patient is currently on cefazolin. Pain is reportedly well managed on current regimen. Patient will be monitored in the intensive care unit. 03/23/2023, patient remains in the ICU, hemodynamically stable, doing extremely well, denies any headache no blurred vision, no nausea no vomiting no abdominal pain, she has improvement in her radicular pain and numbness and tingling into the lower extremities. Her hemoglobin today is 9.3, Garnett catheter remains in place, patient will likely be transferred out of the ICU to a medical surgical floor today. WBC count is 10.5 hemoglobin 9.3 electrodes are normal renal profile is normal. Bicarb is 19 04/09/2023, the patient is extubated on oxygen at 2 L/m nasal cannula. Profoundly weak, still lethargic, follows simple commands and unable to move her arms, she is able to wiggle her toes and she does have facial expression in response to questions. No signs of any respiratory distress. Chest x-ray is showing stable but the pulmonary infiltrates post-ARDS. She does have a cough and a gag. NG tube was kept in place and the patient started having diarrhea as of yesterday. The fecal management system was inserted and the patient has produced approximately 300 mL of stool since yesterday. We'll check stool for C. diff. At the same time, she is running higher blood pressure post extubation. The patient was started on Cleviprex dripp and this was discontinued this morning. The patientis running higher blood pressure. She did have few episodes of atrial fibrillation overnight and currently her rhythm is back to sinus.she remains on TPN for nutritional support pH remains on IV steroids. She remains on an insulin drip currently running at 10 units an hour. She continues to diabetes. She has another negative fluid balance of at least 2 L over the past 24 hours. The white cell count is at 12.4, hemoglobin is at 9.8. BUN is 33 with a creatinine of 0.6 and a sodium level is at 143 with a potassium level of 4.1. The patient is on IV Zosyn that was started on 023 and the patient has nearly completed her course. 04/10/2023, patient remains in the ICU, remains extubated, she is on 2 L nasal cannula, requiring insulin drip at 9 units per hour, she is also on TPN, 45 mL per hour. Continues to have a nasogastric tube in place, and she is receiving trickle feedings, 10 mL per hour. Patient remains on Zosyn, continues to have difficulty with swallowing and with her speech, patient is to have speech and swallow evaluation today. Continues to have upper extremities weakness, not in any form of respiratory distress. She does have a cough reflex and a gag reflex. C. difficile screening was negative WBC count today is 8.5 hemoglobin is 9.8, basic metabolic profile is normal with normal electrolytes and normal renal profile. Fecal management system remains in place. Physical therapy is continued performing range of motion exercises for her extremities and joints. Patient is marginal at best. Objective - Vital Signs Vital signs: Vital Signs Temp 99.2 F 04/10/23 09:00 Pulse 66 04/10/23 11:25 Resp 20 04/10/23 10:00 BP 153/66 04/10/23 10:00 Pulse Ox 98 04/10/23 10:00 FiO2 40 04/08/23 08:02 Intake & Output 04/09/23 04/10/23 04/10/23 18:59 06:59 18:59 Intake Total 3634.536 3622.380 333.600 Output Total 1340 1005 190 Balance 592.093 250.380 143.600 Weight 86.7 kg 86.7 kg Intake: IV 806 854 225 0.9NS 120 130 20 0.9NS Pressure Bag 36 39 15 Mvi, Adult No.4 with Vit 450 585 90 K 10 ml Trace (Conc-1Ml/ Dose) 1 ml Potassium Chloride 18 meq Calcium Gluconate 1 gm Magnesium Sulfate gm 0.5 gm Potassium Phosphate 15 mmol In Amino Acid 5%- D15w 1,000 ml @ 45 mls/hr IV .Q23H2M [facility] Rx#: [id number] Piperacillin-Tazobactam 3 200 100 100 .375 gm In Sodium Chloride 0.9% 100 ml @ 25 mls/hr IVPB Q8HR [facility] Rx# :[id number] Intake, IV Titration 1046.093 271.380 28.600 Amount ACETAMINOPHEN IV (For NPO 200 ) 1,000 mg In Empty Bag 1 bag @ 400 mls/hr IVPB Q6HR [facility] Rx#:[id number] Insulin Regular 100 unit 59.843 71.380 28.600 In Sodium Chloride 0.9% 100 ml @ Per Protocol IV .Q0M [facility] Rx#:[id number] Mvi, Adult No.4 with Vit 986.25 K 10 ml Trace (Conc-1Ml/ Dose) 1 ml Potassium Chloride 18 meq Calcium Gluconate 1 gm Magnesium Sulfate gm 0.5 gm Potassium Phosphate 15 mmol In Amino Acid 5%- D15w 1,000 ml @ 45 mls/hr IV .Q23H2M [facility] Rx#: [id number] Tube Feeding 50 130 50 Other 30 30 Output: Gastric Drainage 50 Urine 890 1005 190 Stool 400 Other: Voiding Method Indwelling Catheter Indwelling Catheter ABP, PAP, CO, CI - Last Documented Arterial Blood Pressure 204/61 - Exam Physical Exam: Revealed 72-year-old female in no distress. On 2 L nasal cannula. Head: Atraumatic, normocephalic. HEENT:[Neck is supple.] [No neck masses.] [No thyromegaly.] [No JVD.] Right IJ triple-lumen catheter is noted. Chest: [Crackles and rhonchi noted bilaterally. Breath sounds are equal. Cardiac Exam: [Normal S1 and S2, no S3 gallop, no murmur.] Abdomen: [Abdominal wall edema is noted. Soft, nontender, no megaly, no rebound, no guarding, negative bowel sounds. Extremities: [No clubbing, 2+ bipedal edema Skin: No rashes. Neurological Exam: Patient seems to be comprehending however she is aphasic, and she has significant upper extremities and lower extremities weakness. Profound weakness is noted throughout. Musculoskeletal weakness throughout otherwise negative. - Labs CBC & Chem 7: 04/10/23 04:40 04/10/23 04:40 Labs: Abnormal Lab Results - Last 24 Hours (Table) 04/09/23 04/09/23 04/09/23 Range/Units 13:03 14:10 15:23 RBC (3.80-5.40) m/uL Hgb (11.4-16.0) gm/dL Hct (34.0-46.0) % MCV (80.0-100.0) fL RDW (11.5-15.5) % Lymphocytes # (1.0-4.8) k/uL Potassium (3.5-5.1) mmol/L Chloride (98-107) mmol/L BUN (7-17) mg/dL Glucose (74-99) mg/dL POC Glucose (mg/dL) 111 H 134 H 133 H (70-110) mg/dL Calcium (8.4-10.2) mg/dL AST (14-36) U/L Total Protein (6.3-8.2) g/dL Albumin (3.5-5.0) g/dL 04/09/23 04/09/23 04/09/23 Range/Units 16:15 18:09 19:04 RBC (3.80-5.40) m/uL Hgb (11.4-16.0) gm/dL Hct (34.0-46.0) % MCV (80.0-100.0) fL RDW (11.5-15.5) % Lymphocytes # (1.0-4.8) k/uL Potassium (3.5-5.1) mmol/L Chloride (98-107) mmol/L BUN (7-17) mg/dL Glucose (74-99) mg/dL POC Glucose (mg/dL) 119 H 138 H 124 H (70-110) mg/dL Calcium (8.4-10.2) mg/dL AST (14-36) U/L Total Protein (6.3-8.2) g/dL Albumin (3.5-5.0) g/dL 04/09/23 04/09/23 04/09/23 Range/Units 21:06 21:20 22:10 RBC (3.80-5.40) m/uL Hgb (11.4-16.0) gm/dL Hct (34.0-46.0) % MCV (80.0-100.0) fL RDW (11.5-15.5) % Lymphocytes # (1.0-4.8) k/uL Potassium 3.2 L (3.5-5.1) mmol/L Chloride (98-107) mmol/L BUN (7-17) mg/dL Glucose (74-99) mg/dL POC Glucose (mg/dL) 147 H 146 H (70-110) mg/dL Calcium (8.4-10.2) mg/dL AST (14-36) U/L Total Protein (6.3-8.2) g/dL Albumin (3.5-5.0) g/dL 04/09/23 04/09/23 04/10/23 Range/Units 22:42 23:02 01:10 RBC (3.80-5.40) m/uL Hgb (11.4-16.0) gm/dL Hct (34.0-46.0) % MCV (80.0-100.0) fL RDW (11.5-15.5) % Lymphocytes # (1.0-4.8) k/uL Potassium 2.9 L (3.5-5.1) mmol/L Chloride (98-107) mmol/L BUN (7-17) mg/dL Glucose (74-99) mg/dL POC Glucose (mg/dL) 125 H 143 H (70-110) mg/dL Calcium (8.4-10.2) mg/dL AST (14-36) U/L Total Protein (6.3-8.2) g/dL Albumin (3.5-5.0) g/dL 04/10/23 04/10/23 04/10/23 Range/Units 02:00 03:05 03:58 RBC (3.80-5.40) m/uL Hgb (11.4-16.0) gm/dL Hct (34.0-46.0) % MCV (80.0-100.0) fL RDW (11.5-15.5) % Lymphocytes # (1.0-4.8) k/uL Potassium (3.5-5.1) mmol/L Chloride (98-107) mmol/L BUN (7-17) mg/dL Glucose (74-99) mg/dL POC Glucose (mg/dL) 154 H 139 H 130 H (70-110) mg/dL Calcium (8.4-10.2) mg/dL AST (14-36) U/L Total Protein (6.3-8.2) g/dL Albumin (3.5-5.0) g/dL 04/10/23 04/10/23 04/10/23 Range/Units 04:40 04:40 05:59 RBC 2.98 L (3.80-5.40) m/uL Hgb 9.8 L (11.4-16.0) gm/dL Hct 29.9 L (34.0-46.0) % MCV 100.1 H (80.0-100.0) fL RDW 15.9 H (11.5-15.5) % Lymphocytes # 0.9 L (1.0-4.8) k/uL Potassium (3.5-5.1) mmol/L Chloride 113 H (98-107) mmol/L BUN 33 H (7-17) mg/dL Glucose 116 H (74-99) mg/dL POC Glucose (mg/dL) 151 H (70-110) mg/dL Calcium 8.2 L (8.4-10.2) mg/dL AST 37 H (14-36) U/L Total Protein 5.3 L (6.3-8.2) g/dL Albumin 2.6 L (3.5-5.0) g/dL 04/10/23 04/10/23 04/10/23 Range/Units 07:01 10:10 12:04 RBC (3.80-5.40) m/uL Hgb (11.4-16.0) gm/dL Hct (34.0-46.0) % MCV (80.0-100.0) fL RDW (11.5-15.5) % Lymphocytes # (1.0-4.8) k/uL Potassium (3.5-5.1) mmol/L Chloride (98-107) mmol/L BUN (7-17) mg/dL Glucose (74-99) mg/dL POC Glucose (mg/dL) 152 H 116 H 171 H (70-110) mg/dL Calcium (8.4-10.2) mg/dL AST (14-36) U/L Total Protein (6.3-8.2) g/dL Albumin (3.5-5.0) g/dL Assessment and Plan Assessment: Impression: Acute hypoxic respiratory failure, this was subsequent to repair of a dural tear and secondary to large volume gastric aspiration requiring intubation and mechanical ventilation. Patient was extubated on 04/09/2023, continues to tolerate the extubation. ARDS, improving Aspiration pneumonia with Enterobacter and Klebsiella organisms in the sputum, remains on IV Zosyn. 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 Dyslipidemia Steroids induced hyperglycemia ileus Anemia of chronic disease Recommendation: Continue to monitor in the ICU Continue physical therapy and passive range of motion Continue blood pressure meds and monitor blood pressure closely patient is on metoprolol and lisinopril Hold on diuretics for now, monitor I's and O's. Continue enteral feeding and nutritional support patient is also on TPN Continue Zosyn for the next couple of days continue insulin and titrate accor dingly Encourage incentive spirometry and continue fecal management system Speech therapy to evaluate for her speech Patient remains critically ill, not quite ready to be moved out of the ICU. We will continue to follow. Critical care time is over 30 minutes Time with Patient: Greater than 30
--- NOTE | 2023-04-10 12:47 | P.PN ---
Subjective Progress Note Date: 04/10/23 CHIEF COMPLAINT: Back pain HISTORY OF PRESENT ILLNESS: Patient extubated over the weekend. On she is hav ing diarrhea and has F Amoss in place. Reglan was discontinued. They're working on discontinuing the TPN and going up on the tube feeds. Stool for C. diff was negative. Afebrile. WBC 8.5 H39.8 sodium 144 potassium 3.6 creatinine 0.59 PHYSICAL EXAM: VITAL SIGNS: Reviewed. GENERAL: Well-developed in no acute distress. ABDOMEN: Soft nondistended. Nontender ASSESSMENT: 1. Postop ileus 2. Status post T10 to pelvis decompression with fusion with drainage from surgical site status post irrigation and debridement 3. Possible aspiration pneumonia PLAN: -Agree with discontinuing TPN and titrating up on tube feeds -Increase activity as tolerated and per orthopedic recommendations Physician Asphalt Tamper note has been reviewed by physician. Signing provider agrees with the documented findings, assessment, and plan of care. Objective - Vital Signs Vital signs: Vital Signs Temp 99.2 F 04/10/23 09:00 Pulse 69 04/10/23 12:00 Resp 18 04/10/23 12:00 BP 163/63 04/10/23 12:00 Pulse Ox 95 04/10/23 12:00 FiO2 40 04/08/23 08:02 Intake & Output 04/09/23 04/10/23 04/10/23 18:59 06:59 18:59 Intake Total 3624.057 9976.380 333.600 Output Total 1340 1005 190 Balance 592.093 250.380 143.600 Weight 86.7 kg 86.7 kg Intake: IV 806 854 225 0.9NS 120 130 20 0.9NS Pressure Bag 36 39 15 Mvi, Adult No.4 with Vit 450 585 90 K 10 ml Trace (Conc-1Ml/ Dose) 1 ml Potassium Chloride 18 meq Calcium Gluconate 1 gm Magnesium Sulfate gm 0.5 gm Potassium Phosphate 15 mmol In Amino Acid 5%- D15w 1,000 ml @ 45 mls/hr IV .Q23H2M [facility] Rx#: [id number] Piperacillin-Tazobactam 3 200 100 100 .375 gm In Sodium Chloride 0.9% 100 ml @ 25 mls/hr IVPB Q8HR [facility] Rx# :[id number] Intake, IV Titration 1046.093 271.380 28.600 Amount ACETAMINOPHEN IV (For NPO 200 ) 1,000 mg In Empty Bag 1 bag @ 400 mls/hr IVPB Q6HR [facility] Rx#:[id number] Insulin Regular 100 unit 59.843 71.380 28.600 In Sodium Chloride 0.9% 100 ml @ Per Protocol IV .Q0M [facility] Rx#:[id number] Mvi, Adult No.4 with Vit 986.25 K 10 ml Trace (Conc-1Ml/ Dose) 1 ml Potassium Chloride 18 meq Calcium Gluconate 1 gm Magnesium Sulfate gm 0.5 gm Potassium Phosphate 15 mmol In Amino Acid 5%- D15w 1,000 ml @ 45 mls/hr IV .Q23H2M [facility] Rx#: [id number] Tube Feeding 50 130 50 Other 30 30 Output: Gastric Drainage 50 Urine 890 1005 190 Stool 400 Other: Voiding Method Indwelling Catheter Indwelling Catheter ABP, PAP, CO, CI - Last Documented Arterial Blood Pressure 204/61 - Labs CBC & Chem 7: 04/10/23 04:40 04/10/23 04:40 Labs: Abnormal Lab Results - Last 24 Hours (Table) 04/09/23 04/09/23 04/09/23 Range/Units 13:03 14:10 15:23 RBC (3.80-5.40) m/uL Hgb (11.4-16.0) gm/dL Hct (34.0-46.0) % MCV (80.0-100.0) fL RDW (11.5-15.5) % Lymphocytes # (1.0-4.8) k/uL Potassium (3.5-5.1) mmol/L Chloride (98-107) mmol/L BUN (7-17) mg/dL Glucose (74-99) mg/dL POC Glucose (mg/dL) 111 H 134 H 133 H (70-110) mg/dL Calcium (8.4-10.2) mg/dL AST (14-36) U/L Total Protein (6.3-8.2) g/dL Albumin (3.5-5.0) g/dL 04/09/23 04/09/23 04/09/23 Range/Units 16:15 18:09 19:04 RBC (3.80-5.40) m/uL Hgb (11.4-16.0) gm/dL Hct (34.0-46.0) % MCV (80.0-100.0) fL RDW (11.5-15.5) % Lymphocytes # (1.0-4.8) k/uL Potassium (3.5-5.1) mmol/L Chloride (98-107) mmol/L BUN (7-17) mg/dL Glucose (74-99) mg/dL POC Glucose (mg/dL) 119 H 138 H 124 H (70-110) mg/dL Calcium (8.4-10.2) mg/dL AST (14-36) U/L Total Protein (6.3-8.2) g/dL Albumin (3.5-5.0) g/dL 04/09/23 04/09/23 04/09/23 Range/Units 21:06 21:20 22:10 RBC (3.80-5.40) m/uL Hgb (11.4-16.0) gm/dL Hct (34.0-46.0) % MCV (80.0-100.0) fL RDW (11.5-15.5) % Lymphocytes # (1.0-4.8) k/uL Potassium 3.2 L (3.5-5.1) mmol/L Chloride (98-107) mmol/L BUN (7-17) mg/dL Glucose (74-99) mg/dL POC Glucose (mg/dL) 147 H 146 H (70-110) mg/dL Calcium (8.4-10.2) mg/dL AST (14-36) U/L Total Protein (6.3-8.2) g/dL Albumin (3.5-5.0) g/dL 04/09/23 04/09/23 04/10/23 Range/Units 22:42 23:02 01:10 RBC (3.80-5.40) m/uL Hgb (11.4-16.0) gm/dL Hct (34.0-46.0) % MCV (80.0-100.0) fL RDW (11.5-15.5) % Lymphocytes # (1.0-4.8) k/uL Potassium 2.9 L (3.5-5.1) mmol/L Chloride (98-107) mmol/L BUN (7-17) mg/dL Glucose (74-99) mg/dL POC Glucose (mg/dL) 125 H 143 H (70-110) mg/dL Calcium (8.4-10.2) mg/dL AST (14-36) U/L Total Protein (6.3-8.2) g/dL Albumin (3.5-5.0) g/dL 04/10/23 04/10/23 04/10/23 Range/Units 02:00 03:05 03:58 RBC (3.80-5.40) m/uL Hgb (11.4-16.0) gm/dL Hct (34.0-46.0) % MCV (80.0-100.0) fL RDW (11.5-15.5) % Lymphocytes # (1.0-4.8) k/uL Potassium (3.5-5.1) mmol/L Chloride (98-107) mmol/L BUN (7-17) mg/dL Glucose (74-99) mg/dL POC Glucose (mg/dL) 154 H 139 H 130 H (70-110) mg/dL Calcium (8.4-10.2) mg/dL AST (14-36) U/L Total Protein (6.3-8.2) g/dL Albumin (3.5-5.0) g/dL 04/10/23 04/10/23 04/10/23 Range/Units 04:40 04:40 05:59 RBC 2.98 L (3.80-5.40) m/uL Hgb 9.8 L (11.4-16.0) gm/dL Hct 29.9 L (34.0-46.0) % MCV 100.1 H (80.0-100.0) fL RDW 15.9 H (11.5-15.5) % Lymphocytes # 0.9 L (1.0-4.8) k/uL Potassium (3.5-5.1) mmol/L Chloride 113 H (98-107) mmol/L BUN 33 H (7-17) mg/dL Glucose 116 H (74-99) mg/dL POC Glucose (mg/dL) 151 H (70-110) mg/dL Calcium 8.2 L (8.4-10.2) mg/dL AST 37 H (14-36) U/L Total Protein 5.3 L (6.3-8.2) g/dL Albumin 2.6 L (3.5-5.0) g/dL 04/10/23 04/10/23 04/10/23 Range/Units 07:01 10:10 12:04 RBC (3.80-5.40) m/uL Hgb (11.4-16.0) gm/dL Hct (34.0-46.0) % MCV (80.0-100.0) fL RDW (11.5-15.5) % Lymphocytes # (1.0-4.8) k/uL Potassium (3.5-5.1) mmol/L Chloride (98-107) mmol/L BUN (7-17) mg/dL Glucose (74-99) mg/dL POC Glucose (mg/dL) 152 H 116 H 171 H (70-110) mg/dL Calcium (8.4-10.2) mg/dL AST (14-36) U/L Total Protein (6.3-8.2) g/dL Albumin (3.5-5.0) g/dL
--- NOTE | 2023-04-10 14:04 | P.PN ---
Subjective Progress Note Date: 04/10/23 (delayed charting seen at 0845) Patient is a 72-year-old female with dyslipidemia, hypertension, [id number] diabetes mellitus type 2 who presented for elective T10 to pelvis decompression and fusion. We were consulted for medical management. She underwent successful decompression and fusion on 03/21, however, her postoperative hospital course was complicated by positional headache suspicious for CSF leak. Subsequently, she was taken back to the operating room on 03/29 for CSF repair. During intubation, patient was noted to have significant amounts of the aspirate emesis and oropharynx and after intubation she was noted to have 1.2 L of gastric output from OG tube. During the procedure she had increasing FiO2 requirements. Postoperatively she became hypotensive down to the 70s/30s and hypoxia down to the mid 60s despite FiO2 of 100% and PEEP of 12. She was transferred to the ICU and started on the Levophed. Differential diagnosis of septic shock secondary to meningitis versus aspiration pneumonia as well as hypovolemic shock secondary to CSF volume loss were considered. She was administered 3L of lactated Ringer's. Chest x-ray postoperatively on 03/29 d emonstrated diffuse pulmonary edema with concern for ARDS superimposed on aspiration. Empiric antibiotics were started with vancomycin, ceftriaxone, Unasynfor empiric coverage of both meningitis and aspiration pneumonia/ Infectious disease was consulted. Sputum culture was positive for Klebsiella and Enterobacter with variable resistance. Pro-calcitonin was elevated at 6.7. Her CVP was monitored and remained stable between 13 and 15. Echocardiogram showed EF 60-65%, mild TR, and moderate pulmonary hypertension. Patient was noted to not have a bowel movement in approximately 5 days as of 03/29 and Gen. surgery was consulted for ileus. She developed sepsis induced atrial fibrillation with RVR, was started on amiodarone drip and converted back to normal sinus rhythm. She is placed on metoprolol once her pressor requirements started to decrease on 04/01, however, this was held after pressor requirements increased again on 04/03. Discussed with orthopedic surgery that no anticoagulation will be given for atrial fibrillation during the critical phase, but can be initiated once patient is able to be transitioned to the floor. She did require nimbex which was successfully stopped on 04/03/23, she was given relistor on 04/03/23 and started having bowel movements. She was able to come off levo on 04/04/23. After patient was weaned off of vasopressor agents she did have some episodes of hypertension requiring a cleft pain drip as she was unable to tolerate oral feedings. Patient continued to have bowel movements and tube feeds were started at trice. She was successfully extubated on 04/08/23. She required a fecal management system, and her reglan was stopped. She continued to have some decreased responsiveness. Patient seen and examined at bedside. He is firmly she is not answering verbally or following commands. Per nursing she was answering questions with speech therapy, but speech was very low. Vital signs reviewed General: nontoxic, no distress, appears at stated age Cardiovascular: S1S2 reg, no murmur, positive posterior tibial pulse bilateral, Lungs: Coarse breath sounds bilateral, no rhonchi, no rales , no accessory muscle use Abdominal: soft, nontender to palpation, no guarding, no appreciable organomegaly Ext: no gross muscle atrophy, Anasarca , no contractures Neuro: Tracking movement around the room, does not follow commands of moving arms, legs, or keeping eyes closed. Moving her lower extremities independently and has withdrawal to pain in bilateral upper extremities. Psych: Awake, tries to open mouoth when asked her name but does not answer Assessment/Plan: Multi-focal pneumonia,due to Klebsiella and Enterobacter complicated by septic shock Ventilator Dependent Acute Hypoxemic and Hypercarbic Respiratory Failure, ARDS Postoperative ileus, resolved now with diarrhea Toxic metabolic encepahlopathy - Pulm note reviewed: Continue TPN - Surgery note reviewed: agree with TPN and increasing TF. - Patient may have some hypoactive delirium associated with poor pain control. Discussed with Dr. Duong start IV acetaminophen scheduled for the next 24 hours to see if this improves in order to reduce the use of opiate medications. - Vikki Huber #[phone] - Await formal speech evaluation - Continue with TPN, tube feeds Sepsis induced atrial fibrillation with RVR, paroxysmal Accelerated HTN - Lisinopril increase to 40 mg daily tomorrow, continue lopressor 25 mg twice daily -Amiodarone 200 mg oral twice daily -Xarelto 20 mg daily 72-year-old female status post T10 to pelvis decompression with fusion s/p CSF repair on 03/29 - ortho note reviewed, no new recommendations Acute blood loss anemia, stable - s/p 1 unit pRBC - Anticipated outcome of surgery/prolonged ICU stay - Follow CBC Diabetes mellitus type 2 -Hold metformin -Currently on insulin drip, blood sugars continue to be labile. -Follow blood sugars Dyslipidemia -Gemfibrozil Metabolic acidosis, resolved Imaging: CXR reviewed by myself with increased pulm vasculature Data Review: Vitals reviewed and patient has been afebrile for the last 24 hours. Blood p ressures have been ranging 154-200 systolic. Labs reviewed and hemoglobin 9.8, Chloride 113, C diff negative DVT prophylaxis: Changed to Xarelto Anticipated discharge date: Pending Clinical Course Anticipated discharge place: Pending Clinical Course This dictation was prepared using [employer] voice recognition software. Though every attempt is made to correct errors during dictation some may still exist. Objective - Vital Signs Vital signs: Vital Signs Temp 99.2 F 04/10/23 09:00 Pulse 69 04/10/23 12:00 Resp 18 04/10/23 12:00 BP 163/63 04/10/23 12:00 Pulse Ox 95 04/10/23 12:00 FiO2 40 04/08/23 08:02 Intake & Output 04/09/23 04/10/23 04/10/23 18:59 06:59 18:59 Intake Total 6848.569 1425.380 333.600 Output Total 1340 1005 190 Balance 592.093 250.380 143.600 Weight 86.7 kg 86.7 kg Intake: IV 806 854 225 0.9NS 120 130 20 0.9NS Pressure Bag 36 39 15 Mvi, Adult No.4 with Vit 450 585 90 K 10 ml Trace (Conc-1Ml/ Dose) 1 ml Potassium Chloride 18 meq Calcium Gluconate 1 gm Magnesium Sulfate gm 0.5 gm Potassium Phosphate 15 mmol In Amino Acid 5%- D15w 1,000 ml @ 45 mls/hr IV .Q23H2M [facility] Rx#: [id number] Piperacillin-Tazobactam 3 200 100 100 .375 gm In Sodium Chloride 0.9% 100 ml @ 25 mls/hr IVPB Q8HR [facility] Rx# :[id number] Intake, IV Titration 1046.093 271.380 28.600 Amount ACETAMINOPHEN IV (For NPO 200 ) 1,000 mg In Empty Bag 1 bag @ 400 mls/hr IVPB Q6HR [facility] Rx#:[id number] Insulin Regular 100 unit 59.843 71.380 28.600 In Sodium Chloride 0.9% 100 ml @ Per Protocol IV .Q0M [facility] Rx#:[id number] Mvi, Adult No.4 with Vit 986.25 K 10 ml Trace (Conc-1Ml/ Dose) 1 ml Potassium Chloride 18 meq Calcium Gluconate 1 gm Magnesium Sulfate gm 0.5 gm Potassium Phosphate 15 mmol In Amino Acid 5%- D15w 1,000 ml @ 45 mls/hr IV .Q23H2M [facility] Rx#: [id number] Tube Feeding 50 130 50 Other 30 30 Output: Gastric Drainage 50 Urine 890 1005 190 Stool 400 Other: Voiding Method Indwelling Catheter Indwelling Catheter ABP, PAP, CO, CI - Last Documented Arterial Blood Pressure 204/61 - Labs CBC & Chem 7: 04/10/23 04:40 04/10/23 04:40 Labs: Abnormal Lab Results - Last 24 Hours (Table) 04/09/23 04/09/23 04/09/23 Range/Units 14:10 15:23 16:15 RBC (3.80-5.40) m/uL Hgb (11.4-16.0) gm/dL Hct (34.0-46.0) % MCV (80.0-100.0) fL RDW (11.5-15.5) % Lymphocytes # (1.0-4.8) k/uL Potassium (3.5-5.1) mmol/L Chloride (98-107) mmol/L BUN (7-17) mg/dL Glucose (74-99) mg/dL POC Glucose (mg/dL) 134 H 133 H 119 H (70-110) mg/dL Calcium (8.4-10.2) mg/dL AST (14-36) U/L Total Protein (6.3-8.2) g/dL Albumin (3.5-5.0) g/dL 04/09/23 04/09/23 04/09/23 Range/Units 18:09 19:04 21:06 RBC (3.80-5.40) m/uL Hgb (11.4-16.0) gm/dL Hct (34.0-46.0) % MCV (80.0-100.0) fL RDW (11.5-15.5) % Lymphocytes # (1.0-4.8) k/uL Potassium (3.5-5.1) mmol/L Chloride (98-107) mmol/L BUN (7-17) mg/dL Glucose (74-99) mg/dL POC Glucose (mg/dL) 138 H 124 H 147 H (70-110) mg/dL Calcium (8.4-10.2) mg/dL AST (14-36) U/L Total Protein (6.3-8.2) g/dL Albumin (3.5-5.0) g/dL 04/09/23 04/09/23 04/09/23 Range/Units 21:20 22:10 22:42 RBC (3.80-5.40) m/uL Hgb (11.4-16.0) gm/dL Hct (34.0-46.0) % MCV (80.0-100.0) fL RDW (11.5-15.5) % Lymphocytes # (1.0-4.8) k/uL Potassium 3.2 L 2.9 L (3.5-5.1) mmol/L Chloride (98-107) mmol/L BUN (7-17) mg/dL Glucose (74-99) mg/dL POC Glucose (mg/dL) 146 H (70-110) mg/dL Calcium (8.4-10.2) mg/dL AST (14-36) U/L Total Protein (6.3-8.2) g/dL Albumin (3.5-5.0) g/dL 04/09/23 04/10/23 04/10/23 Range/Units 23:02 01:10 02:00 RBC (3.80-5.40) m/uL Hgb (11.4-16.0) gm/dL Hct (34.0-46.0) % MCV (80.0-100.0) fL RDW (11.5-15.5) % Lymphocytes # (1.0-4.8) k/uL Potassium (3.5-5.1) mmol/L Chloride (98-107) mmol/L BUN (7-17) mg/dL Glucose (74-99) mg/dL POC Glucose (mg/dL) 125 H 143 H 154 H (70-110) mg/dL Calcium (8.4-10.2) mg/dL AST (14-36) U/L Total Protein (6.3-8.2) g/dL Albumin (3.5-5.0) g/dL 04/10/23 04/10/23 04/10/23 Range/Units 03:05 03:58 04:40 RBC (3.80-5.40) m/uL Hgb (11.4-16.0) gm/dL Hct (34.0-46.0) % MCV (80.0-100.0) fL RDW (11.5-15.5) % Lymphocytes # (1.0-4.8) k/uL Potassium (3.5-5.1) mmol/L Chloride 113 H (98-107) mmol/L BUN 33 H (7-17) mg/dL Glucose 116 H (74-99) mg/dL POC Glucose (mg/dL) 139 H 130 H (70-110) mg/dL Calcium 8.2 L (8.4-10.2) mg/dL AST 37 H (14-36) U/L Total Protein 5.3 L (6.3-8.2) g/dL Albumin 2.6 L (3.5-5.0) g/dL 04/10/23 04/10/23 04/10/23 Range/Units 04:40 05:59 07:01 RBC 2.98 L (3.80-5.40) m/uL Hgb 9.8 L (11.4-16.0) gm/dL Hct 29.9 L (34.0-46.0) % MCV 100.1 H (80.0-100.0) fL RDW 15.9 H (11.5-15.5) % Lymphocytes # 0.9 L (1.0-4.8) k/uL Potassium (3.5-5.1) mmol/L Chloride (98-107) mmol/L BUN (7-17) mg/dL Glucose (74-99) mg/dL POC Glucose (mg/dL) 151 H 152 H (70-110) mg/dL Calcium (8.4-10.2) mg/dL AST (14-36) U/L Total Protein (6.3-8.2) g/dL Albumin (3.5-5.0) g/dL 04/10/23 04/10/23 Range/Units 10:10 12:04 RBC (3.80-5.40) m/uL Hgb (11.4-16.0) gm/dL Hct (34.0-46.0) % MCV (80.0-100.0) fL RDW (11.5-15.5) % Lymphocytes # (1.0-4.8) k/uL Potassium (3.5-5.1) mmol/L Chloride (98-107) mmol/L BUN (7-17) mg/dL Glucose (74-99) mg/dL POC Glucose (mg/dL) 116 H 171 H (70-110) mg/dL Calcium (8.4-10.2) mg/dL AST (14-36) U/L Total Protein (6.3-8.2) g/dL Albumin (3.5-5.0) g/dL
[2023-04-10 14:13] LABS: Glucose,Whole Blood 168 mg/dL (70-110)
[2023-04-10] MEDS: hydrALAZINE HCL 20 MG/ML 1 ML VIAL IVP PRN (15:12)
[2023-04-10 15:13] LABS: Glucose,Whole Blood 158 mg/dL (70-110)
[2023-04-10] MEDS: INSULIN REGULAR 100 UNIT in SODIUM CHLORIDE 0.9% 100 ML IV SCH ×2 (15:13→20:33)
[2023-04-10] MEDS ORDERED: [UNRECOGNIZED DRUG - REMARK] IV SCH ×8 (15:45)
[2023-04-10 16:48] LABS: Glucose,Whole Blood 154 mg/dL (70-110)
[2023-04-10] MEDS: RIVAROXABAN 20 MG TAB PO SCH (17:25)
[2023-04-10 18:18] LABS: Glucose,Whole Blood 138 mg/dL (70-110)
[2023-04-10] MEDS: LACTATED RINGERS 1,000 ML IV SCH (19:29)
[2023-04-10 20:06] LABS: Glucose,Whole Blood 139 mg/dL (70-110)
[2023-04-10 22:18] LABS: Glucose,Whole Blood 144 mg/dL (70-110)
[2023-04-10 23:04] LABS: Glucose,Whole Blood 150 mg/dL (70-110)
[2023-04-10 23:56] LABS: Glucose,Whole Blood 146 mg/dL (70-110)
[2023-04-11 01:05] LABS: Glucose,Whole Blood 129 mg/dL (70-110)
[2023-04-11] MEDS ORDERED: POTASSIUM BICARBONATE/CIT AC 20 MEQ TABLET.EFF NG-TUBE SCH ×2 (02:00→05:34)
[2023-04-11 02:05] LABS: Glucose,Whole Blood 134 mg/dL (70-110)
[2023-04-11 04:01] LABS: Glucose,Whole Blood 118 mg/dL (70-110)
[2023-04-11 04:23] LABS: HCT 29.7 % (34.0-46.0); HGB 9.6 gm/dL (11.4-16.0); Hypochromasia Moderate; MCH 32.8 pg (25.0-35.0); MCHC 32.4 g/dL (31.0-37.0); MCV 101.4 fL (80.0-100.0); Macrocytosis Slight; Mean Platelet Volume 8.4; Platelet Count 335 k/uL (150-450); RBC 2.93 m/uL (3.80-5.40); RDW 15.8 % (11.5-15.5); WBC 10.7 k/uL (3.8-10.6)
[2023-04-11 05:02] LABS: Glucose,Whole Blood 119 mg/dL (70-110)
[2023-04-11 05:12] LABS: African American GFR (CKD) >90 (>60 ml/min/1.73 sqM); Anion Gap 6 mmol/L; Blood Urea Nitrogen 26 mg/dL (7-17); Calcium 8.1 mg/dL (8.4-10.2); Carbon Dioxide 22 mmol/L (22-30); Chloride 116 mmol/L (98-107); Glucose 121 mg/dL (74-99); Magnesium 2.2 mg/dL (1.6-2.3); Non-African American GFR(CKD) 89 (>60 ml/min/1.73 sqM); Potassium 3.8 mmol/L (3.5-5.1); Sodium 144 mmol/L (137-145)
[2023-04-11 06:10] LABS: Glucose,Whole Blood 124 mg/dL (70-110)
[2023-04-11 06:56] LABS: Glucose,Whole Blood 128 mg/dL (70-110)
[2023-04-11] MEDS: IPRATROPIUM-ALBUTEROL 3 ML NEB INHALATION SCH ×4 (07:33→20:07)
[2023-04-11 08:07] LABS: Glucose,Whole Blood 124 mg/dL (70-110)
--- NOTE | 2023-04-11 08:14 | XR ---
EXAMINATION TYPE: XR chest 1V portable DATE OF EXAM: 04/11/2023 COMPARISON: 04/10/2023 HISTORY: SOB, Follow Up FINDINGS: Indwelling tubes and catheters are unchanged. There is continued pulmonary venous congestion with improving pleural effusions. Scattered infiltrate s of the left perihilar and left basilar regions persist although are also improved. Stable appearance of the cardio-mediastinal structures at this time. Pleural effusion unchanged. IMPRESSION: 1. There is continued pulmonary venous congestion with improving pleural effusions. Scattered infilt rates of the left perihilar and left basilar regions persist although are also improved.
--- NOTE | 2023-04-11 09:00 | P.PN ---
Subjective Progress Note Date: 04/11/23 Principal diagnosis: 1. L1-S1 spondylosis with stenosis 2. L1-S1 spondylolisthesis 3. Lower extremity radiculopathy 4. Low back pain 5. Lower extremity weakness Patient seen and examined this morning. Patient is awake and resting comfortably in bed. VSS, currently on 2L NC. Patient is having difficulty with verbalizing answers, she was stating yes to some of my questions. She is using her facial expressions and giving thumbs up. Patient is able to move upper and lower extremities. She does have generalized weakness. Surgical dressing is CDI. Liquid bowel movements continue, fecal management system in place and patent. SCDs and Prafo boots are present to lower extremities. Continue with PT and speech therapies. Objective - Vital Signs Vital signs: Vital Signs Temp 99.5 F 04/11/23 04:00 Pulse 70 04/11/23 07:33 Resp 20 04/11/23 07:00 BP 147/62 04/11/23 07:00 Pulse Ox 98 04/11/23 07:33 FiO2 40 04/08/23 08:02 Intake & Output 04/10/23 04/11/23 04/11/23 18:59 06:59 18:59 Intake Total 678.425 771.494 60.617 Output Total 1700 840 575 Balance -1021.575 -68.506 -514.383 Weight 86.7 kg 88.1 kg Intake: IV 373 156 13 0.9NS 50 120 10 0.9NS Pressure Bag 33 36 3 Mvi, Adult No.4 with Vit 90 K 10 ml Trace (Conc-1Ml/ Dose) 1 ml Potassium Chloride 18 meq Calcium Gluconate 1 gm Magnesium Sulfate gm 0.5 gm Potassium Phosphate 15 mmol In Amino Acid 5%- D15w 1,000 ml @ 45 mls/hr IV .Q23H2M [facility] Rx#: [id number] Piperacillin-Tazobactam 3 200 .375 gm In Sodium Chloride 0.9% 100 ml @ 25 mls/hr IVPB Q8HR [facility] Rx# :[id number] Intake, IV Titration 45.425 225.494 7.617 Amount Insulin Regular 100 unit 45.425 25.494 7.617 In Sodium Chloride 0.9% 100 ml @ Per Protocol IV .Q0M [facility] Rx#:[id number] Piperacillin-Tazobactam 3 200 .375 gm In Sodium Chloride 0.9% 100 ml @ 25 mls/hr IVPB Q8HR [facility] Rx# :[id number] Tube Feeding 170 360 40 Other 90 30 Output: Urine 700 840 75 Stool 1000 500 Other: Voiding Method Indwelling Catheter Indwelling Catheter ABP, PAP, CO, CI - Last Documented Arterial Blood Pressure 204/61 - Exam Physical Examination General: The patient is awake and alert, in no acute distress Skin: Skin is warm and dry with no obvious rashes or lesions. There is +1 generalized edema in bilateral upper and lower extremities. Surgical dressing to the thoracolumbar region is CDI. No active drainage noted. Eye: Pupils are equal, round and reactive to light, extra-ocular movements are intact; there is normal conjunctiva bilaterally. Neck: The neck is supple, there is no tenderness and ROM intact. Cardiovascular: There is a regular rate and rhythm. No murmur, rub or gallop is appreciated. Gastrointestinal: Soft, non-distended, non-tender abdomen. He continues with loose stools, fecal management system is in place. Back: There is no tenderness to palpation in the midline, paralumbar, p arathoracic or buttocks region. There is no obvious deformity . Musculoskeletal: ROM limited secondary to weakness. Patient is able to move her upper and lower extremities. Neurological: Negative Hoffmans, babinski, and clonus signs. Psychiatric: Cooperative, appropriate mood & affect. - Labs CBC & Chem 7: 04/11/23 04:11 04/11/23 04:11 Labs: Abnormal Lab Results - Last 24 Hours (Table) 04/10/23 04/10/23 04/10/23 Range/Units 10:10 12:04 14:11 WBC (3.8-10.6) k/uL RBC (3.80-5.40) m/uL Hgb (11.4-16.0) gm/dL Hct (34.0-46.0) % MCV (80.0-100.0) fL RDW (11.5-15.5) % Potassium (3.5-5.1) mmol/L Chloride (98-107) mmol/L BUN (7-17) mg/dL Glucose (74-99) mg/dL POC Glucose (mg/dL) 116 H 171 H 168 H (70-110) mg/dL Calcium (8.4-10.2) mg/dL 04/10/23 04/10/23 04/10/23 Range/Units 15:11 16:45 18:16 WBC (3.8-10.6) k/uL RBC (3.80-5.40) m/uL Hgb (11.4-16.0) gm/dL Hct (34.0-46.0) % MCV (80.0-100.0) fL RDW (11.5-15.5) % Potassium (3.5-5.1) mmol/L Chloride (98-107) mmol/L BUN (7-17) mg/dL Glucose (74-99) mg/dL POC Glucose (mg/dL) 158 H 154 H 138 H (70-110) mg/dL Calcium (8.4-10.2) mg/dL 04/10/23 04/10/23 04/10/23 Range/Units 20:05 20:05 22:17 WBC (3.8-10.6) k/uL RBC (3.80-5.40) m/uL Hgb (11.4-16.0) gm/dL Hct (34.0-46.0) % MCV (80.0-100.0) fL RDW (11.5-15.5) % Potassium 3.2 L (3.5-5.1) mmol/L Chloride (98-107) mmol/L BUN (7-17) mg/dL Glucose (74-99) mg/dL POC Glucose (mg/dL) 139 H 144 H (70-110) mg/dL Calcium (8.4-10.2) mg/dL 04/10/23 04/10/23 04/11/23 Range/Units 23:03 23:54 01:02 WBC (3.8-10.6) k/uL RBC (3.80-5.40) m/uL Hgb (11.4-16.0) gm/dL Hct (34.0-46.0) % MCV (80.0-100.0) fL RDW (11.5-15.5) % Potassium (3.5-5.1) mmol/L Chloride (98-107) mmol/L BUN (7-17) mg/dL Glucose (74-99) mg/dL POC Glucose (mg/dL) 150 H 146 H 129 H (70-110) mg/dL Calcium (8.4-10.2) mg/dL 04/11/23 04/11/23 04/11/23 Range/Units 02:00 03:58 04:11 WBC (3.8-10.6) k/uL RBC (3.80-5.40) m/uL Hgb (11.4-16.0) gm/dL Hct (34.0-46.0) % MCV (80.0-100.0) fL RDW (11.5-15.5) % Potassium (3.5-5.1) mmol/L Chloride 116 H (98-107) mmol/L BUN 26 H (7-17) mg/dL Glucose 121 H (74-99) mg/dL POC Glucose (mg/dL) 134 H 118 H (70-110) mg/dL Calcium 8.1 L (8.4-10.2) mg/dL 04/11/23 04/11/23 04/11/23 Range/Units 04:11 05:00 06:08 WBC 10.7 H (3.8-10.6) k/uL RBC 2.93 L (3.80-5.40) m/uL Hgb 9.6 L (11.4-16.0) gm/dL Hct 29.7 L (34.0-46.0) % MCV 101.4 H (80.0-100.0) fL RDW 15.8 H (11.5-15.5) % Potassium (3.5-5.1) mmol/L Chloride (98-107) mmol/L BUN (7-17) mg/dL Glucose (74-99) mg/dL POC Glucose (mg/dL) 119 H 124 H (70-110) mg/dL Calcium (8.4-10.2) mg/dL 04/11/23 Range/Units 06:54 WBC (3.8-10.6) k/uL RBC (3.80-5.40) m/uL Hgb (11.4-16.0) gm/dL Hct (34.0-46.0) % MCV (80.0-100.0) fL RDW (11.5-15.5) % Potassium (3.5-5.1) mmol/L Chloride (98-107) mmol/L BUN (7-17) mg/dL Glucose (74-99) mg/dL POC Glucose (mg/dL) 128 H (70-110) mg/dL Calcium (8.4-10.2) mg/dL Assessment and Plan Assessment: Postop Day 13: Irrigation and Debridement with revision dural repair lumbar spine ; Postop Day 21: [id number] decompression and fusion 1. Aspiration Pneumonia 2. Post-op Ileus 3. Post-op anemia-resolved 4. L1-S1 spondylosis with stenosis 5. L1-S1 spondylolisthesis 6. Lower extremity radiculopathy 7. Low back pain 8. Lower extremity weakness Plan: -Appreciate store consultant and team management. -Activity: Continue to sit patient up and mobilize her upper and lower extremities. -Pain control: Adequate at this time -Meds: reviewed -GI ppx: protonix -DVT PPX: SCDs and TEDS -Hygiene: Maintain dressing clean and dry. Meticulous cleaning after BMs away from the incision site -Dispo: Clinically pending *I reviewed and discussed this case with my attending Dr. Duong, whom has reviewed this chart and films and is in agreement with assessment and plan of care as outlined above. I have personally seen and examined the patient, performed the documentation and the assessment and plan as written. Number of minutes spent on the visit: 20m.
[2023-04-11] MEDS: PIPERACILLIN-TAZOBACTAM 3.375 GM in SODIUM CHLORIDE 0.9% 100 ML IVPB SCH (09:48)
[2023-04-11] MEDS: GABAPENTIN 100 MG CAP PO SCH ×3 (09:49→21:51)
[2023-04-11] MEDS: PANTOPRAZOLE 40 MG/10 ML VIAL IV SCH (09:49)
[2023-04-11] MEDS: AMIODARONE 200 MG TAB PO SCH ×2 (09:49→21:52)
[2023-04-11] MEDS: METOPROLOL TARTRATE 25 MG TAB PO SCH ×2 (09:49→21:51)
[2023-04-11] MEDS: lisinopriL 10 MG TAB PO SCH (09:49)
[2023-04-11] MEDS: SENNOSIDES-DOCUSATE SODIUM 1 EACH TAB PO SCH ×2 (09:50→21:09)
[2023-04-11 10:09] LABS: Glucose,Whole Blood 134 mg/dL (70-110)
--- NOTE | 2023-04-11 10:30 | P.PN ---
Subjective Progress Note Date: 04/11/23 Principal diagnosis: Status post [id number] decompression and fusion postoperative day # 21 Status post irrigation and debridement with revision/juvenile repair of the lumbar spine postoperative day # 13 I am seeing this patient in new consultation today 03/22/2023 status postoperative day #1 following an elective T10 to pelvis decompression and fusion. Patient is a 72-year-old female with past medical history significant for chronic back pain and lumbar radiculopathy, diabetes mellitus type 2, hyperlipidemia, hypertension. Patient has been complaining of lumbar radiculopathy like symptoms earlier this year, and was evaluated by Dr. Duong. She was found to have multilevel spondylosis and spondylolisthesis. She underwent an elective T10 to pelvis decompression and fusion yesterday with Dr. Duong. She did have some postoperative hypotension. Estimated blood loss was reported as 700 ML's. She was given 1 unit PRBC, and a total of 2.5 L normal saline bolus. Blood pressures are now normotensive. Urine output is adequate in the order of 50-60 ML's per hour. Patient was extubated successfully in recovery, currently on 4 L/m nasal cannula, in no acute distress. Postoperative chest x-ray shows no acute cardiopulmonary processes. There is a right sided intrajugular central line catheter near the cavoatrial junction. There were also some postsurgical changes. Patient is currently supine in bed. No focal neurological deficits. She is able to move all 4 extremities. Denies any sensation disturbances or saddle anesthesia. Postoperative CBC shows WBC count of 11.7, hemoglobin 8, hematocrit 23, platelets 173. BMP sodium 136, potassium 3.8, chloride 109, serum bicarb 11, BUN 18, creatinine 0.6, glucose 220. Magnesium was low at 1.3. Normal saline with 20 mEq of potassium is infusing at 50 ML's per hour. Nasal swab was positive and colonized with MSSA preoperatively, and the patient is currently on cefazolin. Pain is reportedly well managed on current regimen. Patient will be monitored in the intensive care unit. 03/23/2023, patient remains in the ICU, hemodynamically stable, doing extremely well, denies any headache no blurred vision, no nausea no vomiting no abdominal pain, she has improvement in her radicular pain and numbness and tingling into the lower extremities. Her hemoglobin today is 9.3, Garnett catheter remains in place, patient will likely be transferred out of the ICU to a medical surgical floor today. WBC count is 10.5 hemoglobin 9.3 electrodes are normal renal profile is normal. Bicarb is 19 04/09/2023, the patient is extubated on oxygen at 2 L/m nasal cannula. Profoundly weak, still lethargic, follows simple commands and unable to move her arms, she is able to wiggle her toes and she does have facial expression in response to questions. No signs of any respiratory distress. Chest x-ray is showing stable but the pulmonary infiltrates post-ARDS. She does have a cough and a gag. NG tube was kept in place and the patient started having diarrhea as of yesterday. The fecal management system was inserted and the patient has produced approximately 300 mL of stool since yesterday. We'll check stool for C. diff. At the same time, she is running higher blood pressure post extubation. The patient was started on Cleviprex dripp and this was discontinued this morning. The patientis running higher blood pressure. She did have few episodes of atrial fibrillation overnight and currently her rhythm is back to sinus.she remains on TPN for nutritional support pH remains on IV steroids. She remains on an insulin drip currently running at 10 units an hour. She continues to diabetes. She has another negative fluid balance of at least 2 L over the past 24 hours. The white cell count is at 12.4, hemoglobin is at 9.8. BUN is 33 with a creatinine of 0.6 and a sodium level is at 143 with a potassium level of 4.1. The patient is on IV Zosyn that was started on 04/03 and the patient has nearly completed her course. 04/10/2023, patient remains in the ICU, remains extubated, she is on 2 L nasal cannula, requiring insulin drip at 9 units per hour, she is also on TPN, 45 mL per hour. Continues to have a nasogastric tube in place, and she is receiving trickle feedings, 10 mL per hour. Patient remains on Zosyn, continues to have difficulty with swallowing and with her speech, patient is to have speech and swallow evaluation today. Continues to have upper extremities weakness, not in any form of respiratory distress. She does have a cough reflex and a gag reflex. C. difficile screening was negative WBC count today is 8.5 hemoglobin is 9.8, basic metabolic profile is normal with normal electrolytes and normal renal profile. Fecal management system remains in place. Physical therapy is continued performing range of motion exercises for her extremities and joints. Patient is marginal at best. Patient was reevaluated 04/11/2023, remains in the ICU, basically about the same, she is on 2 L nasal cannula, does not seem to be in any distress, very by lysing better today at patient could say hello without any difficulty. Tends not to speak unless asked to do so. Otherwise she is using facial expressions. And using her hands. Patient remained generally weak, nonetheless she is able to move her upper and lower extremities. Continues to be followed by physical therapy and speech therapy. WBC count today is 10.7 hemoglobin is 9.6. Basic metabolic profile is normal. Chest x-ray showed minimal pulmonary vascular congestion and atelectasis especially at the left base. Objective - Vital Signs Vital signs: Vital Signs Temp 98.3 F 04/11/23 08:00 Pulse 75 04/11/23 10:00 Resp 14 04/11/23 10:00 BP 159/57 04/11/23 10:00 Pulse Ox 96 04/11/23 10:00 FiO2 40 04/08/23 08:02 Intake & Output 04/10/23 04/11/23 04/11/23 18:59 06:59 18:59 Intake Total 678.425 771.494 257.941 Output Total 1700 840 910 Balance -1021.575 -68.506 -652.059 Weight 86.7 kg 88.1 kg Intake: IV 373 156 52 0.9NS 50 120 40 0.9NS Pressure Bag 33 36 12 Mvi, Adult No.4 with Vit 90 K 10 ml Trace (Conc-1Ml/ Dose) 1 ml Potassium Chloride 18 meq Calcium Gluconate 1 gm Magnesium Sulfate gm 0.5 gm Potassium Phosphate 15 mmol In Amino Acid 5%- D15w 1,000 ml @ 45 mls/hr IV .Q23H2M [facility] Rx#: [id number] Piperacillin-Tazobactam 3 200 .375 gm In Sodium Chloride 0.9% 100 ml @ 25 mls/hr IVPB Q8HR [facility] Rx# :[id number] Intake, IV Titration 45.425 225.494 15.941 Amount Insulin Regular 100 unit 45.425 25.494 15.941 In Sodium Chloride 0.9% 100 ml @ Per Protocol IV .Q0M [facility] Rx#:[id number] Piperacillin-Tazobactam 3 200 .375 gm In Sodium Chloride 0.9% 100 ml @ 25 mls/hr IVPB Q8HR [facility] Rx# :[id number] Tube Feeding 170 360 160 Other 90 30 30 Output: Urine 700 840 310 Stool 1000 600 Other: Voiding Method Indwelling Catheter Indwelling Catheter ABP, PAP, CO, CI - Last Documented Arterial Blood Pressure 143/42 - Exam Physical Exam: Revealed 72-year-old female in no distress. On 2 L nasal cannula. Head: Atraumatic, normocephalic. HEENT:[Neck is supple.] [No neck masses.] [No thyromegaly.] [No JVD.] Right IJ triple-lumen catheter is noted. Chest: [Diminished breath sounds at the bases no crackles or rhonchi or wheezes noted today.. Cardiac Exam: [Normal S1 and S2, no S3 gallop, no murmur.] Abdomen: [Abdominal wall edema is noted. Soft, nontender, no megaly, no rebound, no guarding, negative bowel sounds. Extremities: [No clubbing, 2+ bipedal edema Skin: No rashes. Neurological Exam: Seems to be alert oriented 3, verbalizing better today by saying hello, and remained generally weak. Musculoskeletal weakness throughout otherwise negative. - Labs CBC & Chem 7: 04/11/23 04:11 04/11/23 04:11 Labs: Abnormal Lab Results - Last 24 Hours (Table) 04/10/23 04/10/23 04/10/23 Range/Units 12:04 14:11 15:11 WBC (3.8-10.6) k/uL RBC (3.80-5.40) m/uL Hgb (11.4-16.0) gm/dL Hct (34.0-46.0) % MCV (80.0-100.0) fL RDW (11.5-15.5) % Potassium (3.5-5.1) mmol/L Chloride (98-107) mmol/L BUN (7-17) mg/dL Glucose (74-99) mg/dL POC Glucose (mg/dL) 171 H 168 H 158 H (70-110) mg/dL Calcium (8.4-10.2) mg/dL 04/10/23 04/10/23 04/10/23 Range/Units 16:45 18:16 20:05 WBC (3.8-10.6) k/uL RBC (3.80-5.40) m/uL Hgb (11.4-16.0) gm/dL Hct (34.0-46.0) % MCV (80.0-100.0) fL RDW (11.5-15.5) % Potassium 3.2 L (3.5-5.1) mmol/L Chloride (98-107) mmol/L BUN (7-17) mg/dL Glucose (74-99) mg/dL POC Glucose (mg/dL) 154 H 138 H (70-110) mg/dL Calcium (8.4-10.2) mg/dL 04/10/23 04/10/23 04/10/23 Range/Units 20:05 22:17 23:03 WBC (3.8-10.6) k/uL RBC (3.80-5.40) m/uL Hgb (11.4-16.0) gm/dL Hct (34.0-46.0) % MCV (80.0-100.0) fL RDW (11.5-15.5) % Potassium (3.5-5.1) mmol/L Chloride (98-107) mmol/L BUN (7-17) mg/dL Glucose (74-99) mg/dL POC Glucose (mg/dL) 139 H 144 H 150 H (70-110) mg/dL Calcium (8.4-10.2) mg/dL 04/10/23 04/11/23 04/11/23 Range/Units 23:54 01:02 02:00 WBC (3.8-10.6) k/uL RBC (3.80-5.40) m/uL Hgb (11.4-16.0) gm/dL Hct (34.0-46.0) % MCV (80.0-100.0) fL RDW (11.5-15.5) % Potassium (3.5-5.1) mmol/L Chloride (98-107) mmol/L BUN (7-17) mg/dL Glucose (74-99) mg/dL POC Glucose (mg/dL) 146 H 129 H 134 H (70-110) mg/dL Calcium (8.4-10.2) mg/dL 04/11/23 04/11/23 04/11/23 Range/Units 03:58 04:11 04:11 WBC 10.7 H (3.8-10.6) k/uL RBC 2.93 L (3.80-5.40) m/uL Hgb 9.6 L (11.4-16.0) gm/dL Hct 29.7 L (34.0-46.0) % MCV 101.4 H (80.0-100.0) fL RDW 15.8 H (11.5-15.5) % Potassium (3.5-5.1) mmol/L Chloride 116 H (98-107) mmol/L BUN 26 H (7-17) mg/dL Glucose 121 H (74-99) mg/dL POC Glucose (mg/dL) 118 H (70-110) mg/dL Calcium 8.1 L (8.4-10.2) mg/dL 04/11/23 04/11/23 04/11/23 Range/Units 05:00 06:08 06:54 WBC (3.8-10.6) k/uL RBC (3.80-5.40) m/uL Hgb (11.4-16.0) gm/dL Hct (34.0-46.0) % MCV (80.0-100.0) fL RDW (11.5-15.5) % Potassium (3.5-5.1) mmol/L Chloride (98-107) mmol/L BUN (7-17) mg/dL Glucose (74-99) mg/dL POC Glucose (mg/dL) 119 H 124 H 128 H (70-110) mg/dL Calcium (8.4-10.2) mg/dL 04/11/23 04/11/23 Range/Units 08:06 10:08 WBC (3.8-10.6) k/uL RBC (3.80-5.40) m/uL Hgb (11.4-16.0) gm/dL Hct (34.0-46.0) % MCV (80.0-100.0) fL RDW (11.5-15.5) % Potassium (3.5-5.1) mmol/L Chloride (98-107) mmol/L BUN (7-17) mg/dL Glucose (74-99) mg/dL POC Glucose (mg/dL) 124 H 134 H (70-110) mg/dL Calcium (8.4-10.2) mg/dL Assessment and Plan Assessment: Impression: Acute hypoxic respiratory failure, this was subsequent to repair of a dural tear and secondary to large volume gastric aspiration requiring intubation and mechanical ventilation. Patient was extubated on 04/09/2023, continues to tolerate the extubation. ARDS, improving Aspiration pneumonia with Enterobacter and Klebsiella organisms in the sputum, remains on IV Zosyn. 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 Dyslipidemia Steroids induced hyperglycemia ileus Anemia of chronic disease Recommendation: Will transfer out of the ICU today. Continue speech therapy and physical therapy Continue blood pressure meds , and address accordingly Continue to monitor I's and O's Continue enteral feeding and nutritional support patient is also on TPN Discontinued Zosyn Encourage incentive spirometry and continue fecal management system Continue GI and DVT prophylaxis Transfer today to a medical surgical floor, patient may eventually require outpa tient 3. Time with Patient: Less than 30
[2023-04-11] MEDS ORDERED: DEXTROSE 50% SYRINGE 50 ML IVP PRN ×2 (10:32)
[2023-04-11] MEDS ORDERED: lisinopriL 20 MG TAB PO STA (10:42)
--- NOTE | 2023-04-11 10:44 | P.PN ---
Subjective Progress Note Date: 04/11/23 Hospital Course: Patient is a 72-year-old female with dyslipidemia, hypertension, non-insulin- dependent diabetes mellitus type 2 who presented for elective T10 to pelvis decompression and fusion. We were consulted for medical management. She underwent successful decompression and fusion on 03/21, however, her postoperative hospital course was complicated by positional headache suspicious for CSF leak. Subsequently, she was taken back to the operating room on 03/29 for CSF repair. During intubation, patient was noted to have significant amounts of the aspirate emesis and oropharynx and after intubation she was noted to have 1.2 L of gastric output from OG tube. During the procedure she had increasing FiO2 requirements. Postoperatively she became hypotensive down to the 70s/30s and hypoxia down to the mid 60s despite FiO2 of 100% and PEEP of 12. She was transferred to the ICU and started on the Levophed. Differential diagnosis of septic shock secondary to meningitis versus aspiration pneumonia as well as hypovolemic shock secondary to CSF volume loss were considered. She was administered 3L of lactated Ringer's. Chest x-ray postoperatively on 03/29 demonstrated diffuse pulmonary edema with concern for ARDS superimposed on aspiration. Empiric antibiotics were started with vancomycin, ceftriaxone, Unasynfor empiric coverage of both meningitis and aspiration pneumonia/ Infectious disease was consulted. Sputum culture was positive for Klebsiella and Enterobacter with variable resistance. Pro-calcitonin was elevated at 6.7. Her CVP was monitored and remained stable between 13 and 15. Echocardiogram showed EF 60-65%, mild TR, and moderate pulmonary hypertension. Patient was noted to not have a bowel movement in approximately 5 days as of 03/29 and Gen. s winnie was consulted for ileus. She developed sepsis induced atrial fibrillation with RVR, was started on amiodarone drip and converted back to normal sinus rhythm. She is placed on metoprolol once her pressor requirements started to decrease on 04/01, however, this was held after pressor requirements increased again on 04/03. Discussed with orthopedic surgery that no anticoagulation will be given for atrial fibrillation during the critical phase, but can be initiated once patient is able to be transitioned to the floor. She did require nimbex which was successfully stopped on 04/03/23, she was given relistor on 04/03/23 and started having bowel movements. She was able to come off levo on 04/04/23. After patient was weaned off of vasopressor agents she did have some episodes of hypertension requiring a cleft pain drip as she was unable to tolerate oral feedings. Patient continued to have bowel movements and tube feeds were started at trickle. She was successfully extubated on 04/08/23. She required a fecal management system, and her reglan was stopped. She continued to have some decreased responsiveness. Subjective: Patient seen and examined at bedside. No acute events overnight. Still has profound weakness. Pertinent positives and negatives as discussed above, a complete review of systems was performed and all other systems are negative. Vitals Signs Reviewed. General: nontoxic, no distress, appears at stated age Cardiovascular: S1S2 reg, no murmur, positive posterior tibial pulse bilateral, Lungs: Coarse breath sounds bilateral, no rhonchi, no rales , no accessory muscle use Abdominal: soft, nontender to palpation, no guarding, no appreciable organomegaly Ext: no gross muscle atrophy, Anasarca , no contractures Neuro: Tracking movement around the room, does not follow commands of moving arms, legs, or keeping eyes closed. Moving her lower extremities independently and has withdrawal to pain in bilateral upper extremities. Psych: Awake, tries to open mouoth when asked her name but does not answer Data Reviewed Today: Pertinent Labs: WBC 10.7, hemoglobin 9.6, sodium 144, potassium 2.8, creatinine 0.63, blood sugar saturating 118-134 Imaging: Chest x-ray independently interpreted, shows pulmonary vascular congestion, improving Assessment and Plan: Multi-focal pneumonia,due to Klebsiella and Enterobacter complicated by septic shock, no longer on pressors Ventilator Dependent Acute Hypoxemic and Hypercarbic Respiratory Failure, ARDS, now on nasal cannula Postoperative ileus, resolved now with diarrhea Toxic metabolic encepahlopathy , possible hypoactive delirium Profound weakness, possibly critical illness myopathy - Pulm following, likely transfer out of the ICU today - Surgery following, patient remains on tube feeds, TPN discontinued -Zosyn discontinued per pulmonology -ID following - Parous evaluated patient, we'll continue to follow - Continue with TPN, tube feeds Sepsis induced atrial fibrillation with RVR, paroxysmal Accelerated HTN - Lisinopril increased to 40 mg, continue lopressor 25 mg twice daily -Amiodarone 200 mg oral twice daily -Xarelto 20 mg daily 72-year-old female status post T10 to pelvis decompression with fusion s/p CSF repair on 03/29 - ortho note reviewed, no new recommendations Acute blood loss anemia, stable - s/p 3 unit pRBC - Anticipated outcome of surgery/prolonged ICU stay - Follow CBC Diabetes mellitus type 2 -Hold metformin -Currently on insulin drip, blood sugars continue to be labile. -Now that she is on tube feeds, will discontinue insulin drip, switch to sliding scale insulin every 4 hours -Follow blood sugars Dyslipidemia -Gemfibrozil Metabolic acidosis, resolved DVT ppx: Xarelto Code status: Full code Anticipated discharge place: Pending clinical course Anticipated discharge time: Pending clinical course Thank you for allowing us to participate in the care of this pleasant patient. Do not hesitate to contact us with questions. Someone can be reached from the [facility] hospitalist group all hours of the day at [phone] or via [employer]. Objective - Vital Signs Vital signs: Vital Signs Temp 98.3 F 04/11/23 08:00 Pulse 75 04/11/23 10:00 Resp 14 04/11/23 10:00 BP 159/57 04/11/23 10:00 Pulse Ox 96 04/11/23 10:00 FiO2 40 04/08/23 08:02 Intake & Output 04/10/23 04/11/23 04/11/23 18:59 06:59 18:59 Intake Total 678.425 771.494 257.941 Output Total 1700 840 910 Balance -1021.575 -68.506 -652.059 Weight 86.7 kg 88.1 kg Intake: IV 373 156 52 0.9NS 50 120 40 0.9NS Pressure Bag 33 36 12 Mvi, Adult No.4 with Vit 90 K 10 ml Trace (Conc-1Ml/ Dose) 1 ml Potassium Chloride 18 meq Calcium Gluconate 1 gm Magnesium Sulfate gm 0.5 gm Potassium Phosphate 15 mmol In Amino Acid 5%- D15w 1,000 ml @ 45 mls/hr IV .Q23H2M [facility] Rx#: [id number] Piperacillin-Tazobactam 3 200 .375 gm In Sodium Chloride 0.9% 100 ml @ 25 mls/hr IVPB Q8HR [facility] Rx# :[id number] Intake, IV Titration 45.425 225.494 15.941 Amount Insulin Regular 100 unit 45.425 25.494 15.941 In Sodium Chloride 0.9% 100 ml @ Per Protocol IV .Q0M [facility] Rx#:[id number] Piperacillin-Tazobactam 3 200 .375 gm In Sodium Chloride 0.9% 100 ml @ 25 mls/hr IVPB Q8HR [facility] Rx# :[id number] Tube Feeding 170 360 160 Other 90 30 30 Output: Urine 700 840 310 Stool 1000 600 Other: Voiding Method Indwelling Catheter Indwelling Catheter ABP, PAP, CO, CI - Last Documented Arterial Blood Pressure 143/42 - Labs CBC & Chem 7: 04/11/23 04:11 04/11/23 04:11 Labs: Abnormal Lab Results - Last 24 Hours (Table) 04/10/23 04/10/23 04/10/23 Range/Units 12:04 14:11 15:11 WBC (3.8-10.6) k/uL RBC (3.80-5.40) m/uL Hgb (11.4-16.0) gm/dL Hct (34.0-46.0) % MCV (80.0-100.0) fL RDW (11.5-15.5) % Potassium (3.5-5.1) mmol/L Chloride (98-107) mmol/L BUN (7-17) mg/dL Glucose (74-99) mg/dL POC Glucose (mg/dL) 171 H 168 H 158 H (70-110) mg/dL Calcium (8.4-10.2) mg/dL 04/10/23 04/10/23 04/10/23 Range/Units 16:45 18:16 20:05 WBC (3.8-10.6) k/uL RBC (3.80-5.40) m/uL Hgb (11.4-16.0) gm/dL Hct (34.0-46.0) % MCV (80.0-100.0) fL RDW (11.5-15.5) % Potassium 3.2 L (3.5-5.1) mmol/L Chloride (98-107) mmol/L BUN (7-17) mg/dL Glucose (74-99) mg/dL POC Glucose (mg/dL) 154 H 138 H (70-110) mg/dL Calcium (8.4-10.2) mg/dL 04/10/23 04/10/23 04/10/23 Range/Units 20:05 22:17 23:03 WBC (3.8-10.6) k/uL RBC (3.80-5.40) m/uL Hgb (11.4-16.0) gm/dL Hct (34.0-46.0) % MCV (80.0-100.0) fL RDW (11.5-15.5) % Potassium (3.5-5.1) mmol/L Chloride (98-107) mmol/L BUN (7-17) mg/dL Glucose (74-99) mg/dL POC Glucose (mg/dL) 139 H 144 H 150 H (70-110) mg/dL Calcium (8.4-10.2) mg/dL 04/10/23 04/11/23 04/11/23 Range/Units 23:54 01:02 02:00 WBC (3.8-10.6) k/uL RBC (3.80-5.40) m/uL Hgb (11.4-16.0) gm/dL Hct (34.0-46.0) % MCV (80.0-100.0) fL RDW (11.5-15.5) % Potassium (3.5-5.1) mmol/L Chloride (98-107) mmol/L BUN (7-17) mg/dL Glucose (74-99) mg/dL POC Glucose (mg/dL) 146 H 129 H 134 H (70-110) mg/dL Calcium (8.4-10.2) mg/dL 04/11/23 04/11/23 04/11/23 Range/Units 03:58 04:11 04:11 WBC 10.7 H (3.8-10.6) k/uL RBC 2.93 L (3.80-5.40) m/uL Hgb 9.6 L (11.4-16.0) gm/dL Hct 29.7 L (34.0-46.0) % MCV 101.4 H (80.0-100.0) fL RDW 15.8 H (11.5-15.5) % Potassium (3.5-5.1) mmol/L Chloride 116 H (98-107) mmol/L BUN 26 H (7-17) mg/dL Glucose 121 H (74-99) mg/dL POC Glucose (mg/dL) 118 H (70-110) mg/dL Calcium 8.1 L (8.4-10.2) mg/dL 04/11/23 04/11/23 04/11/23 Range/Units 05:00 06:08 06:54 WBC (3.8-10.6) k/uL RBC (3.80-5.40) m/uL Hgb (11.4-16.0) gm/dL Hct (34.0-46.0) % MCV (80.0-100.0) fL RDW (11.5-15.5) % Potassium (3.5-5.1) mmol/L Chloride (98-107) mmol/L BUN (7-17) mg/dL Glucose (74-99) mg/dL POC Glucose (mg/dL) 119 H 124 H 128 H (70-110) mg/dL Calcium (8.4-10.2) mg/dL 04/11/23 04/11/23 Range/Units 08:06 10:08 WBC (3.8-10.6) k/uL RBC (3.80-5.40) m/uL Hgb (11.4-16.0) gm/dL Hct (34.0-46.0) % MCV (80.0-100.0) fL RDW (11.5-15.5) % Potassium (3.5-5.1) mmol/L Chloride (98-107) mmol/L BUN (7-17) mg/dL Glucose (74-99) mg/dL POC Glucose (mg/dL) 124 H 134 H (70-110) mg/dL Calcium (8.4-10.2) mg/dL
[2023-04-11 12:22] LABS: Glucose,Whole Blood 118 mg/dL (70-110)
[2023-04-11] MEDS: INSULIN ASPART (NovoLOG) 100 UNIT/ML VIAL SQ SCH ×3 (12:22→21:51)
--- NOTE | 2023-04-11 15:10 | P.PN ---
Subjective Progress Note Date: 04/10/23 Principal diagnosis: Sepsis/pneumonia Patient is a 73-year-old female electively admitted to the hospital 03/21/2023 and this patient who is s/p extensive thoracolumbar spine surgery in this patient who is status post L2-L5 deformity correction did have a L2-S1 interbody fusion and T10-L2 posterior lateral instrumented fusion,patient did have postoperative CSF leak status post complex T10 posterior decompression fusion with dural repair postoperatively the patient did have a respiratory distress requiring intubation and admission to the ICU.Patient did have CT humera ogram of the chest that was negative for PE did shows multifocal groundglass opacities, CT abdomen and pelvis was consistent with ileus and no evidence of perforation On today's evaluation that is 04/10/2023, the patient continues to be afebrile, the patient is hemodynamically stable not requiring any pressor support, the patient is breathing comfortably on 2 L nasal cannula oxygen, the patient is awake and did answer some simple questions and denied any chest pain no vomiting and he has been reported by the nursing staff Patient white count has normalized to 8.5, hemoglobin is 9.8 creatinine 0. 59 Objective - Vital Signs Vital signs: Vital Signs Temp 99.2 F 04/10/23 09:00 Pulse 69 04/10/23 12:00 Resp 18 04/10/23 12:00 BP 163/63 04/10/23 12:00 Pulse Ox 95 04/10/23 12:00 FiO2 40 04/08/23 08:02 Intake & Output 04/09/23 04/10/23 04/10/23 18:59 06:59 18:59 Intake Total 3788.462 1465.380 333.600 Output Total 1340 1005 190 Balance 592.093 250.380 143.600 Weight 86.7 kg 86.7 kg Intake: IV 806 854 225 0.9NS 120 130 20 0.9NS Pressure Bag 36 39 15 Mvi, Adult No.4 with Vit 450 585 90 K 10 ml Trace (Conc-1Ml/ Dose) 1 ml Potassium Chloride 18 meq Calcium Gluconate 1 gm Magnesium Sulfate gm 0.5 gm Potassium Phosphate 15 mmol In Amino Acid 5%- D15w 1,000 ml @ 45 mls/hr IV .Q23H2M [facility] Rx#: [id number] Piperacillin-Tazobactam 3 200 100 100 .375 gm In Sodium Chloride 0.9% 100 ml @ 25 mls/hr IVPB Q8HR [facility] Rx# :[id number] Intake, IV Titration 1046.093 271.380 28.600 Amount ACETAMINOPHEN IV (For NPO 200 ) 1,000 mg In Empty Bag 1 bag @ 400 mls/hr IVPB Q6HR [facility] Rx#:[id number] Insulin Regular 100 unit 59.843 71.380 28.600 In Sodium Chloride 0.9% 100 ml @ Per Protocol IV .Q0M [facility] Rx#:[id number] Mvi, Adult No.4 with Vit 986.25 K 10 ml Trace (Conc-1Ml/ Dose) 1 ml Potassium Chloride 18 meq Calcium Gluconate 1 gm Magnesium Sulfate gm 0.5 gm Potassium Phosphate 15 mmol In Amino Acid 5%- D15w 1,000 ml @ 45 mls/hr IV .Q23H2M [facility] Rx#: [id number] Tube Feeding 50 130 50 Other 30 30 Output: Gastric Drainage 50 Urine 890 1005 190 Stool 400 Other: Voiding Method Indwelling Catheter Indwelling Catheter ABP, PAP, CO, CI - Last Documented Arterial Blood Pressure 204/61 - Exam GENERAL DESCRIPTION: An elderly female lying in bed in no distress RESPIRATORY SYSTEM: Unlabored breathing , decreased breath sounds at bases HEART: S1 S2 regular rate and rhythm , ABDOMEN: Soft , no tenderness EXTREMITIES: Bilateral lower extremity swelling no redness - Labs CBC & Chem 7: 04/11/23 04:11 04/11/23 04:11 Labs: Abnormal Lab Results - Last 24 Hours (Table) 04/09/23 04/09/23 04/09/23 Range/Units 13:03 14:10 15:23 RBC (3.80-5.40) m/uL Hgb (11.4-16.0) gm/dL Hct (34.0-46.0) % MCV (80.0-100.0) fL RDW (11.5-15.5) % Lymphocytes # (1.0-4.8) k/uL Potassium (3.5-5.1) mmol/L Chloride (98-107) mmol/L BUN (7-17) mg/dL Glucose (74-99) mg/dL POC Glucose (mg/dL) 111 H 134 H 133 H (70-110) mg/dL Calcium (8.4-10.2) mg/dL AST (14-36) U/L Total Protein (6.3-8.2) g/dL Albumin (3.5-5.0) g/dL 04/09/23 04/09/23 04/09/23 Range/Units 16:15 18:09 19:04 RBC (3.80-5.40) m/uL Hgb (11.4-16.0) gm/dL Hct (34.0-46.0) % MCV (80.0-100.0) fL RDW (11.5-15.5) % Lymphocytes # (1.0-4.8) k/uL Potassium (3.5-5.1) mmol/L Chloride (98-107) mmol/L BUN (7-17) mg/dL Glucose (74-99) mg/dL POC Glucose (mg/dL) 119 H 138 H 124 H (70-110) mg/dL Calcium (8.4-10.2) mg/dL AST (14-36) U/L Total Protein (6.3-8.2) g/dL Albumin (3.5-5.0) g/dL 04/09/23 04/09/23 04/09/23 Range/Units 21:06 21:20 22:10 RBC (3.80-5.40) m/uL Hgb (11.4-16.0) gm/dL Hct (34.0-46.0) % MCV (80.0-100.0) fL RDW (11.5-15.5) % Lymphocytes # (1.0-4.8) k/uL Potassium 3.2 L (3.5-5.1) mmol/L Chloride (98-107) mmol/L BUN (7-17) mg/dL Glucose (74-99) mg/dL POC Glucose (mg/dL) 147 H 146 H (70-110) mg/dL Calcium (8.4-10.2) mg/dL AST (14-36) U/L Total Protein (6.3-8.2) g/dL Albumin (3.5-5.0) g/dL 04/09/23 04/09/23 04/10/23 Range/Units 22:42 23:02 01:10 RBC (3.80-5.40) m/uL Hgb (11.4-16.0) gm/dL Hct (34.0-46.0) % MCV (80.0-100.0) fL RDW (11.5-15.5) % Lymphocytes # (1.0-4.8) k/uL Potassium 2.9 L (3.5-5.1) mmol/L Chloride (98-107) mmol/L BUN (7-17) mg/dL Glucose (74-99) mg/dL POC Glucose (mg/dL) 125 H 143 H (70-110) mg/dL Calcium (8.4-10.2) mg/dL AST (14-36) U/L Total Protein (6.3-8.2) g/dL Albumin (3.5-5.0) g/dL 04/10/23 04/10/23 04/10/23 Range/Units 02:00 03:05 03:58 RBC (3.80-5.40) m/uL Hgb (11.4-16.0) gm/dL Hct (34.0-46.0) % MCV (80.0-100.0) fL RDW (11.5-15.5) % Lymphocytes # (1.0-4.8) k/uL Potassium (3.5-5.1) mmol/L Chloride (98-107) mmol/L BUN (7-17) mg/dL Glucose (74-99) mg/dL POC Glucose (mg/dL) 154 H 139 H 130 H (70-110) mg/dL Calcium (8.4-10.2) mg/dL AST (14-36) U/L Total Protein (6.3-8.2) g/dL Albumin (3.5-5.0) g/dL 04/10/23 04/10/23 04/10/23 Range/Units 04:40 04:40 05:59 RBC 2.98 L (3.80-5.40) m/uL Hgb 9.8 L (11.4-16.0) gm/dL Hct 29.9 L (34.0-46.0) % MCV 100.1 H (80.0-100.0) fL RDW 15.9 H (11.5-15.5) % Lymphocytes # 0.9 L (1.0-4.8) k/uL Potassium (3.5-5.1) mmol/L Chloride 113 H (98-107) mmol/L BUN 33 H (7-17) mg/dL Glucose 116 H (74-99) mg/dL POC Glucose (mg/dL) 151 H (70-110) mg/dL Calcium 8.2 L (8.4-10.2) mg/dL AST 37 H (14-36) U/L Total Protein 5.3 L (6.3-8.2) g/dL Albumin 2.6 L (3.5-5.0) g/dL 04/10/23 04/10/23 04/10/23 Range/Units 07:01 10:10 12:04 RBC (3.80-5.40) m/uL Hgb (11.4-16.0) gm/dL Hct (34.0-46.0) % MCV (80.0-100.0) fL RDW (11.5-15.5) % Lymphocytes # (1.0-4.8) k/uL Potassium (3.5-5.1) mmol/L Chloride (98-107) mmol/L BUN (7-17) mg/dL Glucose (74-99) mg/dL POC Glucose (mg/dL) 152 H 116 H 171 H (70-110) mg/dL Calcium (8.4-10.2) mg/dL AST (14-36) U/L Total Protein (6.3-8.2) g/dL Albumin (3.5-5.0) g/dL Assessment and Plan (1) Sepsis Current Visit: Yes Status: Acute Code(s): A41.9 - SEPSIS, UNSPECIFIED ORGANISM SNOMED Code(s): 84345928 (2) Gram-negative pneumonia Current Visit: Yes Status: Acute Code(s): J15.6 - PNEUMONIA DUE TO OTHER GRAM-NEGATIVE BACTERIA SNOMED Code(s): 691904510 (3) Leukocytosis Current Visit: Yes Status: Acute Code(s): D72.829 - ELEVATED WHITE BLOOD CELL COUNT, UNSPECIFIED SNOMED Code(s): 628910449 Plan: 1patient with a sepsis/septic shock in this patient with fever elevated white count hypertension tachycardia is source likely aspiration pneumonia likely gram-negative with a sputum currently growing Klebsiella and Enterobacter with s ome resistant pattern, patient subsequently did have a CT that heavy suspicious for ileus and concern for aspiration pneumonia 2-patient fever pattern has resolved and the patient white count has normalized 3Patient has shown clinical improvement the patient will continue with Zosyn and monitor clinical course closely Family the bedside questions were answered Dictation was produced using [employer] dictation software. please excuse any grammatical, word or spelling errors. Time with Patient: Less than 30
--- NOTE | 2023-04-11 15:12 | P.PN ---
Subjective Progress Note Date: 04/11/23 Principal diagnosis: Sepsis/pneumonia Patient is a 73-year-old female electively admitted to the hospital 03/21/2023 and this patient who is s/p extensive thoracolumbar spine surgery in this patient who is status post L2-L5 deformity correction did have a L2-S1 interbody fusion and T10-L2 posterior lateral instrumented fusion,patient did have postoperative CSF leak status post complex T10 posterior decompression fusion with dural repair postoperatively the patient did have a respiratory distress requiring intubation and admission to the ICU.Patient did have CT humera ogram of the chest that was negative for PE did shows multifocal groundglass opacities, CT abdomen and pelvis was consistent with ileus and no evidence of perforation On today's evaluation that is 04/11/2023, the patient remains to be afebrile, the patient is breathing comfortably on 2 L nasal cannula oxygen, the patient is awake and did answer some simple questions and denied any chest pain, no nausea no vomiting no abdominal pain and no diarrhea has been reported Patient white count 10.7, hemoglobin is 9.6 creatinine is 0.63 Objective - Vital Signs Vital signs: Vital Signs Temp 98.3 F 04/11/23 08:00 Pulse 71 04/11/23 12:00 Resp 21 04/11/23 12:00 BP 145/61 04/11/23 12:00 Pulse Ox 92 L 04/11/23 12:00 FiO2 40 04/08/23 08:02 Intake & Output 04/10/23 04/11/23 04/11/23 18:59 06:59 18:59 Intake Total 678.425 771.494 390.941 Output Total 2875 057 3526 Balance -1021.575 -68.506 -679.059 Weight 86.7 kg 88.1 kg Intake: IV 373 156 75 0.9NS 50 120 60 0.9NS Pressure Bag 33 36 15 Mvi, Adult No.4 with Vit 90 K 10 ml Trace (Conc-1Ml/ Dose) 1 ml Potassium Chloride 18 meq Calcium Gluconate 1 gm Magnesium Sulfate gm 0.5 gm Potassium Phosphate 15 mmol In Amino Acid 5%- D15w 1,000 ml @ 45 mls/hr IV .Q23H2M [facility] Rx#: [id number] Piperacillin-Tazobactam 3 200 .375 gm In Sodium Chloride 0.9% 100 ml @ 25 mls/hr IVPB Q8HR [facility] Rx# :[id number] Intake, IV Titration 45.425 225.494 15.941 Amount Insulin Regular 100 unit 45.425 25.494 15.941 In Sodium Chloride 0.9% 100 ml @ Per Protocol IV .Q0M [facility] Rx#:[id number] Piperacillin-Tazobactam 3 200 .375 gm In Sodium Chloride 0.9% 100 ml @ 25 mls/hr IVPB Q8HR [facility] Rx# :[id number] Tube Feeding 170 360 240 Other 90 30 60 Output: Urine 700 840 470 Stool 1000 600 Other: Voiding Method Indwelling Catheter Indwelling Catheter Indwelling Catheter ABP, PAP, CO, CI - Last Documented Arterial Blood Pressure 143/42 - Exam GENERAL DESCRIPTION: An elderly female lying in bed in no distress RESPIRATORY SYSTEM: Unlabored breathing , decreased breath sounds at bases HEART: S1 S2 regular rate and rhythm , ABDOMEN: Soft , no tenderness EXTREMITIES: Bilateral lower extremity swelling no redness - Labs CBC & Chem 7: 04/11/23 04:11 04/11/23 04:11 Labs: Abnormal Lab Results - Last 24 Hours (Table) 04/10/23 04/10/23 04/10/23 Range/Units 14:11 15:11 16:45 WBC (3.8-10.6) k/uL RBC (3.80-5.40) m/uL Hgb (11.4-16.0) gm/dL Hct (34.0-46.0) % MCV (80.0-100.0) fL RDW (11.5-15.5) % Potassium (3.5-5.1) mmol/L Chloride (98-107) mmol/L BUN (7-17) mg/dL Glucose (74-99) mg/dL POC Glucose (mg/dL) 168 H 158 H 154 H (70-110) mg/dL Calcium (8.4-10.2) mg/dL 04/10/23 04/10/23 04/10/23 Range/Units 18:16 20:05 20:05 WBC (3.8-10.6) k/uL RBC (3.80-5.40) m/uL Hgb (11.4-16.0) gm/dL Hct (34.0-46.0) % MCV (80.0-100.0) fL RDW (11.5-15.5) % Potassium 3.2 L (3.5-5.1) mmol/L Chloride (98-107) mmol/L BUN (7-17) mg/dL Glucose (74-99) mg/dL POC Glucose (mg/dL) 138 H 139 H (70-110) mg/dL Calcium (8.4-10.2) mg/dL 04/10/23 04/10/23 04/10/23 Range/Units 22:17 23:03 23:54 WBC (3.8-10.6) k/uL RBC (3.80-5.40) m/uL Hgb (11.4-16.0) gm/dL Hct (34.0-46.0) % MCV (80.0-100.0) fL RDW (11.5-15.5) % Potassium (3.5-5.1) mmol/L Chloride (98-107) mmol/L BUN (7-17) mg/dL Glucose (74-99) mg/dL POC Glucose (mg/dL) 144 H 150 H 146 H (70-110) mg/dL Calcium (8.4-10.2) mg/dL 04/11/23 04/11/23 04/11/23 Range/Units 01:02 02:00 03:58 WBC (3.8-10.6) k/uL RBC (3.80-5.40) m/uL Hgb (11.4-16.0) gm/dL Hct (34.0-46.0) % MCV (80.0-100.0) fL RDW (11.5-15.5) % Potassium (3.5-5.1) mmol/L Chloride (98-107) mmol/L BUN (7-17) mg/dL Glucose (74-99) mg/dL POC Glucose (mg/dL) 129 H 134 H 118 H (70-110) mg/dL Calcium (8.4-10.2) mg/dL 04/11/23 04/11/23 04/11/23 Range/Units 04:11 04:11 05:00 WBC 10.7 H (3.8-10.6) k/uL RBC 2.93 L (3.80-5.40) m/uL Hgb 9.6 L (11.4-16.0) gm/dL Hct 29.7 L (34.0-46.0) % MCV 101.4 H (80.0-100.0) fL RDW 15.8 H (11.5-15.5) % Potassium (3.5-5.1) mmol/L Chloride 116 H (98-107) mmol/L BUN 26 H (7-17) mg/dL Glucose 121 H (74-99) mg/dL POC Glucose (mg/dL) 119 H (70-110) mg/dL Calcium 8.1 L (8.4-10.2) mg/dL 04/11/23 04/11/23 04/11/23 Range/Units 06:08 06:54 08:06 WBC (3.8-10.6) k/uL RBC (3.80-5.40) m/uL Hgb (11.4-16.0) gm/dL Hct (34.0-46.0) % MCV (80.0-100.0) fL RDW (11.5-15.5) % Potassium (3.5-5.1) mmol/L Chloride (98-107) mmol/L BUN (7-17) mg/dL Glucose (74-99) mg/dL POC Glucose (mg/dL) 124 H 128 H 124 H (70-110) mg/dL Calcium (8.4-10.2) mg/dL 04/11/23 04/11/23 Range/Units 10:08 12:20 WBC (3.8-10.6) k/uL RBC (3.80-5.40) m/uL Hgb (11.4-16.0) gm/dL Hct (34.0-46.0) % MCV (80.0-100.0) fL RDW (11.5-15.5) % Potassium (3.5-5.1) mmol/L Chloride (98-107) mmol/L BUN (7-17) mg/dL Glucose (74-99) mg/dL POC Glucose (mg/dL) 134 H 118 H (70-110) mg/dL Calcium (8.4-10.2) mg/dL Assessment and Plan (1) Sepsis Current Visit: Yes Status: Acute Code(s): A41.9 - SEPSIS, UNSPECIFIED ORGANISM SNOMED Code(s): 34810728 (2) Gram-negative pneumonia Current Visit: Yes Status: Acute Code(s): J15.6 - PNEUMONIA DUE TO OTHER GRAM-NEGATIVE BACTERIA SNOMED Code(s): 130444480 (3) Leukocytosis Current Visit: Yes Status: Acute Code(s): D72.829 - ELEVATED WHITE BLOOD CELL COUNT, UNSPECIFIED SNOMED Code(s): 059197444 Plan: 1patient with a sepsis/septic shock in this patient with fever elevated white count hypertension tachycardia is source likely aspiration pneumonia likely gram-negative with a sputum currently growing Klebsiella and Enterobacter with some resistant pattern, patient subsequently did have a CT that heavy suspicious for ileus and concern for aspiration pneumonia 2-patient fever pattern has resolved and the patient white count has normalized 3Patient seemed to have shown overall clinical improvement the patient Zosyn has been discontinued by pulmonary per the nursing staff and the patient will monitor closely Dictation was produced using [email or web address] dictation software. please excuse any grammatical, word or spelling errors. Time with Patient: Less than 30
--- NOTE | 2023-04-11 15:46 | P.PN ---
Subjective Progress Note Date: 04/11/23 CHIEF COMPLAINT: Back pain HISTORY OF PRESENT ILLNESS: Patient extubated over the weekend. She is having diarrhea and has FMS in place. TPN discontinued. Patient on tube feeds. Patient seen by speech therapy and the recommending to keep her nothing by mouth except for ice chips PHYSICAL EXAM: VITAL SIGNS: Reviewed. GENERAL: Well-developed in no acute distress. ABDOMEN: Soft nondistended. Nontender ASSESSMENT: 1. Postop ileus improving 2. Status post T10 to pelvis decompression with fusion with drainage from surgical site status post irrigation and debridement 3. Possible aspiration pneumonia PLAN: -Continue supportive care -Keep nothing by mouth except for ice chips per speech therapy recommendations Physician Title I Coordinator note has been reviewed by physician. Signing provider agrees with the documented findings, assessment, and plan of care. Objective - Vital Signs Vital signs: Vital Signs Temp 97.9 F 04/11/23 12:00 Pulse 72 04/11/23 15:33 Resp 24 04/11/23 15:00 BP 149/67 04/11/23 15:00 Pulse Ox 92 L 04/11/23 15:00 FiO2 40 04/08/23 08:02 Intake & Output 04/10/23 04/11/23 04/11/23 18:59 06:59 18:59 Intake Total 678.425 771.494 490.941 Output Total 5595 827 1259 Balance -1021.575 -68.506 -794.059 Weight 86.7 kg 88.1 kg 88.1 kg Intake: IV 373 156 85 0.9NS 50 120 70 0.9NS Pressure Bag 33 36 15 Mvi, Adult No.4 with Vit 90 K 10 ml Trace (Conc-1Ml/ Dose) 1 ml Potassium Chloride 18 meq Calcium Gluconate 1 gm Magnesium Sulfate gm 0.5 gm Potassium Phosphate 15 mmol In Amino Acid 5%- D15w 1,000 ml @ 45 mls/hr IV .Q23H2M [facility] Rx#: [id number] Piperacillin-Tazobactam 3 200 .375 gm In Sodium Chloride 0.9% 100 ml @ 25 mls/hr IVPB Q8HR [facility] Rx# :[id number] Intake, IV Titration 45.425 225.494 15.941 Amount Insulin Regular 100 unit 45.425 25.494 15.941 In Sodium Chloride 0.9% 100 ml @ Per Protocol IV .Q0M [facility] Rx#:[id number] Piperacillin-Tazobactam 3 200 .375 gm In Sodium Chloride 0.9% 100 ml @ 25 mls/hr IVPB Q8HR [facility] Rx# :[id number] Tube Feeding 170 360 330 Other 90 30 60 Output: Urine 700 840 685 Stool 1000 600 Other: Voiding Method Indwelling Catheter Indwelling Catheter Indwelling Catheter ABP, PAP, CO, CI - Last Documented Arterial Blood Pressure 143/42 - Labs CBC & Chem 7: 04/11/23 04:11 04/11/23 04:11 Labs: Abnormal Lab Results - Last 24 Hours (Table) 04/10/23 04/10/23 04/10/23 Range/Units 16:45 18:16 20:05 WBC (3.8-10.6) k/uL RBC (3.80-5.40) m/uL Hgb (11.4-16.0) gm/dL Hct (34.0-46.0) % MCV (80.0-100.0) fL RDW (11.5-15.5) % Potassium 3.2 L (3.5-5.1) mmol/L Chloride (98-107) mmol/L BUN (7-17) mg/dL Glucose (74-99) mg/dL POC Glucose (mg/dL) 154 H 138 H (70-110) mg/dL Calcium (8.4-10.2) mg/dL 04/10/23 04/10/23 04/10/23 Range/Units 20:05 22:17 23:03 WBC (3.8-10.6) k/uL RBC (3.80-5.40) m/uL Hgb (11.4-16.0) gm/dL Hct (34.0-46.0) % MCV (80.0-100.0) fL RDW (11.5-15.5) % Potassium (3.5-5.1) mmol/L Chloride (98-107) mmol/L BUN (7-17) mg/dL Glucose (74-99) mg/dL POC Glucose (mg/dL) 139 H 144 H 150 H (70-110) mg/dL Calcium (8.4-10.2) mg/dL 04/10/23 04/11/2323 Range/Units 23:54 01:02 02:00 WBC (3.8-10.6) k/uL RBC (3.80-5.40) m/uL Hgb (11.4-16.0) gm/dL Hct (34.0-46.0) % MCV (80.0-100.0) fL RDW (11.5-15.5) % Potassium (3.5-5.1) mmol/L Chloride (98-107) mmol/L BUN (7-17) mg/dL Glucose (74-99) mg/dL POC Glucose (mg/dL) 146 H 129 H 134 H (70-110) mg/dL Calcium (8.4-10.2) mg/dL 04/11/23 04/11/23 04/11/23 Range/Units 03:58 04:11 04:11 WBC 10.7 H (3.8-10.6) k/uL RBC 2.93 L (3.80-5.40) m/uL Hgb 9.6 L (11.4-16.0) gm/dL Hct 29.7 L (34.0-46.0) % MCV 101.4 H (80.0-100.0) fL RDW 15.8 H (11.5-15.5) % Potassium (3.5-5.1) mmol/L Chloride 116 H (98-107) mmol/L BUN 26 H (7-17) mg/dL Glucose 121 H (74-99) mg/dL POC Glucose (mg/dL) 118 H (70-110) mg/dL Calcium 8.1 L (8.4-10.2) mg/dL 04/11/23 04/11/23 04/11/23 Range/Units 05:00 06:08 06:54 WBC (3.8-10.6) k/uL RBC (3.80-5.40) m/uL Hgb (11.4-16.0) gm/dL Hct (34.0-46.0) % MCV (80.0-100.0) fL RDW (11.5-15.5) % Potassium (3.5-5.1) mmol/L Chloride (98-107) mmol/L BUN (7-17) mg/dL Glucose (74-99) mg/dL POC Glucose (mg/dL) 119 H 124 H 128 H (70-110) mg/dL Calcium (8.4-10.2) mg/dL 04/11/23 04/11/23 04/11/23 Range/Units 08:06 10:08 12:20 WBC (3.8-10.6) k/uL RBC (3.80-5.40) m/uL Hgb (11.4-16.0) gm/dL Hct (34.0-46.0) % MCV (80.0-100.0) fL RDW (11.5-15.5) % Potassium (3.5-5.1) mmol/L Chloride (98-107) mmol/L BUN (7-17) mg/dL Glucose (74-99) mg/dL POC Glucose (mg/dL) 124 H 134 H 118 H (70-110) mg/dL Calcium (8.4-10.2) mg/dL
[2023-04-11 16:17] LABS: Glucose,Whole Blood 152 mg/dL (70-110)
[2023-04-11] MEDS: RIVAROXABAN 20 MG TAB PO SCH (17:29)
[2023-04-11 21:25] LABS: Glucose,Whole Blood 168 mg/dL (70-110)
[2023-04-12 00:11] LABS: Glucose,Whole Blood 176 mg/dL (70-110)
[2023-04-12 03:55] LABS: African American GFR (CKD) >90 (>60 ml/min/1.73 sqM); Anion Gap 7 mmol/L; Blood Urea Nitrogen 21 mg/dL (7-17); Calcium 7.7 mg/dL (8.4-10.2); Carbon Dioxide 20 mmol/L (22-30); Chloride 116 mmol/L (98-107); Glucose 194 mg/dL (74-99); Magnesium 2.1 mg/dL (1.6-2.3); Non-African American GFR(CKD) >90 (>60 ml/min/1.73 sqM); Phosphorus 2.8 mg/dL (2.5-4.5); Potassium 3.6 mmol/L (3.5-5.1); Sodium 143 mmol/L (137-145)
[2023-04-12 04:31] LABS: Basophils % (A) 0 %; Eosinophils # (A) 0.3 k/uL (0-0.7); Eosinophils % (A) 3 %; HGB 9.7 gm/dL (11.4-16.0); Hypochromasia Moderate; Lymphocytes # (A) 1.2 k/uL (1.0-4.8); Lymphocytes % (A) 12 %; MCH 33.3 pg (25.0-35.0); MCHC 32.3 g/dL (31.0-37.0); MCV 103.3 fL (80.0-100.0); Macrocytosis Moderate; Mean Platelet Volume 8.2; Monocytes # (A) 0.4 k/uL (0-1.0); Monocytes % (A) 4 %; Neutrophils % (A) 80 %; Platelet Count 279 k/uL (150-450); RDW 15.9 % (11.5-15.5); WBC 10.1 k/uL (3.8-10.6)
[2023-04-12 04:37] LABS: Glucose,Whole Blood 194 mg/dL (70-110)
[2023-04-12] MEDS: INSULIN ASPART (NovoLOG) 100 UNIT/ML VIAL SQ SCH ×6 (05:06→21:47)
[2023-04-12] MEDS ORDERED: POTASSIUM BICARBONATE/CIT AC 20 MEQ TABLET.EFF NG-TUBE SCH ×2 (06:00→08:00)
[2023-04-12] MEDS ORDERED: Potassium Replacement Protocol 1 EACH MISC MISCELLANE PRN (07:25)
--- NOTE | 2023-04-12 07:53 | XR ---
EXAMINATION TYPE: XR chest 1V portable DATE OF EXAM: 04/12/2023 Comparison: 04/11/2023 Clinical History: 73-year-old female assess lungs Findings: Right CVC tip is in the right atrium. Patient is probably rotated towards the left REGULAR myocardial mediastinal contours. NG tube courses below the diaphragm. The distal aspect is outside the field of view. Posterior midline skin trinh with partially visualized thoracolumbar fusion hardware. Heart borderline enlarged. Interstitial opacities persist along with more patchy retrocardiac left basilar opacity. No significant change. Impression: Current exam is rotated causing some limitation in assessment. Otherwise, diffuse interstitial lung d isease and patchy left basilar opacity is similar.
[2023-04-12] MEDS: IPRATROPIUM-ALBUTEROL 3 ML NEB INHALATION SCH ×4 (08:06→19:12)
[2023-04-12 08:14] LABS: Glucose,Whole Blood 167 mg/dL (70-110)
[2023-04-12] MEDS: AMIODARONE 200 MG TAB PO SCH ×2 (08:16→21:44)
[2023-04-12] MEDS: lisinopriL 20 MG TAB PO SCH (08:16)
[2023-04-12] MEDS: METOPROLOL TARTRATE 25 MG TAB PO SCH ×2 (08:16→21:43)
[2023-04-12] MEDS: GABAPENTIN 100 MG CAP PO SCH ×4 (08:16→21:58)
[2023-04-12] MEDS: PANTOPRAZOLE 40 MG/10 ML VIAL IV SCH (08:18)
--- NOTE | 2023-04-12 08:42 | P.PN ---
Subjective Progress Note Date: 04/12/23 Principal diagnosis: 1. L1-S1 spondylosis with stenosis 2. L1-S1 spondylolisthesis 3. Lower extremity radiculopathy 4. Low back pain 5. Lower extremity weakness Patient seen and examined this morning. Patient is awake and resting comfortably in bed. VSS, patient is on room air O2 sat 96%. Patient continues to have difficulty with verbalizing answers. Patient is able to move upper and lower extremities, she does have limitation with flexion of her left knee due to stiffness. ROM exercises need to be performed. Patient may progress with ph ysical therapy as tolerated, would like to see if patient can tolerate sitting at edge of bed or even standing position. She does have generalized weakness. Surgical dressing is CDI. Liquid bowel movements continue, fecal management system in place and patent. SCDs and Prafo boots are present to lower extremities. Continue with PT and speech therapies. Objective - Vital Signs Vital signs: Vital Signs Temp 98.9 F 04/12/23 08:00 Pulse 79 04/12/23 08:19 Resp 22 04/12/23 08:06 BP 144/65 04/12/23 08:00 Pulse Ox 96 04/12/23 08:06 FiO2 40 04/08/23 08:02 Intake & Output 04/11/23 04/12/23 04/12/23 18:59 06:59 18:59 Intake Total 720.941 60 60 Output Total 1680 550 230 Balance -959.059 -490 -170 Weight 88.1 kg Intake: IV 85 0.9NS 70 0.9NS Pressure Bag 15 Intake, IV Titration 15.941 Amount Insulin Regular 100 unit 15.941 In Sodium Chloride 0.9% 100 ml @ Per Protocol IV .Q0M [facility] Rx#:[id number] Tube Feeding 530 60 60 Other 90 Output: Urine 880 350 230 Stool 800 200 Other: Voiding Method Indwelling Catheter Indwelling Catheter ABP, PAP, CO, CI - Last Documented Arterial Blood Pressure 143/42 - Exam Physical Examination General: The patient is awake and alert, in no acute distress Skin: Skin is warm and dry with no obvious rashes or lesions. There is +1 generalized edema in bilateral upper and lower extremities. Surgical dressing to the thoracolumbar region is CDI. No active drainage noted. Eye: Pupils are equal, round and reactive to light, extra-ocular movements are intact; there is normal conjunctiva bilaterally. Neck: The neck is supple, there is no tenderness and ROM intact. Cardiovascular: There is a regular rate and rhythm. No murmur, rub or gallop is appreciated. Gastrointestinal: Soft, non-distended, non-tender abdomen. He continues with loose stools, fecal management system is in place. Back: There is no tenderness to palpation in the midline, paralumbar, parathoracic or buttocks region. There is no obvious deformity . Musculoskeletal: ROM limited secondary to weakness. Patient is able to move her upper and lower extremities. Neurological: Negative Hoffmans, babinski, and clonus signs. Psychiatric: Cooperative, appropriate mood & affect. - Labs CBC & Chem 7: 04/12/23 03:28 04/12/23 03:28 Labs: Abnormal Lab Results - Last 24 Hours (Table) 04/11/23 04/11/23 04/11/23 Range/Units 10:08 12:20 16:15 RBC (3.80-5.40) m/uL Hgb (11.4-16.0) gm/dL Hct (34.0-46.0) % MCV (80.0-100.0) fL RDW (11.5-15.5) % Neutrophils # (1.3-7.7) k/uL Chloride (98-107) mmol/L Carbon Dioxide (22-30) mmol/L BUN (7-17) mg/dL Creatinine (0.52-1.04) mg/dL Glucose (74-99) mg/dL POC Glucose (mg/dL) 134 H 118 H 152 H (70-110) mg/dL Calcium (8.4-10.2) mg/dL 04/11/23 04/12/23 04/12/23 Range/Units 21:24 00:09 03:28 RBC (3.80-5.40) m/uL Hgb (11.4-16.0) gm/dL Hct (34.0-46.0) % MCV (80.0-100.0) fL RDW (11.5-15.5) % Neutrophils # (1.3-7.7) k/uL Chloride 116 H (98-107) mmol/L Carbon Dioxide 20 L (22-30) mmol/L BUN 21 H (7-17) mg/dL Creatinine 0.50 L (0.52-1.04) mg/dL Glucose 194 H (74-99) mg/dL POC Glucose (mg/dL) 168 H 176 H (70-110) mg/dL Calcium 7.7 L (8.4-10.2) mg/dL 04/12/23 04/12/23 04/12/23 Range/Units 03:28 04:36 08:12 RBC 2.90 L (3.80-5.40) m/uL Hgb 9.7 L (11.4-16.0) gm/dL Hct 30.0 L (34.0-46.0) % MCV 103.3 H (80.0-100.0) fL RDW 15.9 H (11.5-15.5) % Neutrophils # 8.0 H (1.3-7.7) k/uL Chloride (98-107) mmol/L Carbon Dioxide (22-30) mmol/L BUN (7-17) mg/dL Creatinine (0.52-1.04) mg/dL Glucose (74-99) mg/dL POC Glucose (mg/dL) 194 H 167 H (70-110) mg/dL Calcium (8.4-10.2) mg/dL Assessment and Plan Assessment: Postop Day 14: Irrigation and Debridement with revision dural repair lumbar spine ; Postop Day 22: [id number] decompression and fusion 1. Aspiration Pneumonia 2. Post-op Ileus 3. Post-op anemia-resolved 4. L1-S1 spondylosis with stenosis 5. L1-S1 spondylolisthesis 6. Lower extremity radiculopathy 7. Low back pain 8. Lower extremity weakness Plan: -Appreciate regulatory affairs consultant and team management. -Activity: Continue to sit patient up and mobilize her upper and lower extremities. -Pain control: Adequate at this time -Meds: reviewed -GI ppx: protonix -DVT PPX: SCDs and TEDS -Hygiene: Maintain dressing clean and dry. Meticulous cleaning after BMs away from the incision site -Dispo: Clinically pending *I reviewed and discussed this case with my attending Dr. Duong, whom has reviewed this chart and films and is in agreement with assessment and plan of care as outlined above. I have personally seen and examined the patient, performed the documentation and the assessment and plan as written. Number of minutes spent on the visit: 20m.
--- NOTE | 2023-04-12 09:48 | P.PN ---
Subjective Progress Note Date: 04/12/23 Principal diagnosis: Status post [id number] decompression and fusion postoperative day # 22 Status post irrigation and debridement with revision/juvenile repair of the lumbar spine postoperative day # 14 I am seeing this patient in new consultation today 03/22/2023 status postoperative day #1 following an elective T10 to pelvis decompression and fusion. Patient is a 72-year-old female with past medical history significant for chronic back pain and lumbar radiculopathy, diabetes mellitus type 2, hyperlipidemia, hypertension. Patient has been complaining of lumbar radiculopathy like symptoms earlier this year, and was evaluated by Dr. Duong. She was found to have multilevel spondylosis and spondylolisthesis. She underwent an elective T10 to pelvis decompression and fusion yesterday with Dr. Duong. She did have some postoperative hypotension. Estimated blood loss was reported as 700 ML's. She was given 1 unit PRBC, and a total of 2.5 L normal saline bolus. Blood pressures are now normotensive. Urine output is adequate in the order of 50-60 ML's per hour. Patient was extubated successfully in recovery, currently on 4 L/m nasal cannula, in no acute distress. Postoperative chest x-ray shows no acute cardiopulmonary processes. There is a right sided intrajugular central line catheter near the cavoatrial junction. There were also some postsurgical changes. Patient is currently supine in bed. No focal neurological deficits. She is able to move all 4 extremities. Denies any sensation disturbances or saddle anesthesia. Postoperative CBC shows WBC count of 11.7, hemoglobin 8, hematocrit 23, platelets 173. BMP sodium 136, potassium 3.8, chloride 109, serum bicarb 11, BUN 18, creatinine 0.6, glucose 220. Magnesium was low at 1.3. Normal saline with 20 mEq of potassium is infusing at 50 ML's per hour. Nasal swab was positive and colonized with MSSA preoperatively, and the patient is currently on cefazolin. Pain is reportedly well managed on current regimen. Patient will be monitored in the intensive care unit. 03/23/2023, patient remains in the ICU, hemodynamically stable, doing extremely well, denies any headache no blurred vision, no nausea no vomiting no abdominal pain, she has improvement in her radicular pain and numbness and tingling into the lower extremities. Her hemoglobin today is 9.3, Garnett catheter remains in place, patient will likely be transferred out of the ICU to a medical surgical floor today. WBC count is 10.5 hemoglobin 9.3 electrodes are normal renal profile is normal. Bicarb is 19 04/09/2023, the patient is extubated on oxygen at 2 L/m nasal cannula. Profoundly weak, still lethargic, follows simple commands and unable to move her arms, she is able to wiggle her toes and she does have facial expression in response to questions. No signs of any respiratory distress. Chest x-ray is showing stable but the pulmonary infiltrates post-ARDS. She does have a cough and a gag. NG tube was kept in place and the patient started having diarrhea as of yesterday. The fecal management system was inserted and the patient has produced approximately 300 mL of stool since yesterday. We'll check stool for C. diff. At the same time, she is running higher blood pressure post extubation. The patient was started on Cleviprex dripp and this was discontinued this morning. The patientis running higher blood pressure. She did have few episodes of atrial fibrillation overnight and currently her rhythm is back to sinus.she remains on TPN for nutritional support pH remains on IV steroids. She remains on an insulin drip currently running at 10 units an hour. She continues to diabetes. She has another negative fluid balance of at least 2 L over the past 24 hours. The white cell count is at 12.4, hemoglobin is at 9.8. BUN is 33 with a creatinine of 0.6 and a sodium level is at 143 with a potassium level of 4.1. The patient is on IV Zosyn that was started on 04/03 and the patient has nearly completed her course. 04/10/2023, patient remains in the ICU, remains extubated, she is on 2 L nasal cannula, requiring insulin drip at 9 units per hour, she is also on TPN, 45 mL per hour. Continues to have a nasogastric tube in place, and she is receiving trickle feedings, 10 mL per hour. Patient remains on Zosyn, continues to have difficulty with swallowing and with her speech, patient is to have speech and swallow evaluation today. Continues to have upper extremities weakness, not in any form of respiratory distress. She does have a cough reflex and a gag reflex. C. difficile screening was negative WBC count today is 8.5 hemoglobin is 9.8, basic metabolic profile is normal with normal electrolytes and normal renal profile. Fecal management system remains in place. Physical therapy is continued performing range of motion exercises for her extremities and joints. Patient is marginal at best. Patient was reevaluated 04/11/2023, remains in the ICU, basically about the same, she is on 2 L nasal cannula, does not seem to be in any distress, very by lysing better today at patient could say hello without any difficulty. Tends not to speak unless asked to do so. Otherwise she is using facial expressions. And using her hands. Patient remained generally weak, nonetheless she is able to move her upper and lower extremities. Continues to be followed by physical therapy and speech therapy. WBC count today is 10.7 hemoglobin is 9.6. Basic metabolic profile is normal. Chest x-ray showed minimal pulmonary vascular congestion and atelectasis especially at the left base. reevaluated today on 04/12/2023 patient may is in the ICU as an overflow. She is very comfortable, not in any distress, patient is on room air, still receiving enteral feeding at 60 ML per hour, chest x-ray showing more left basilar atelectasis, patient is doing well with incentive spirometry, continues to have significant amount of diarrhea. Hence Imodium was added today. She was supposed to have another swallow evaluation today, and possibly decide on removi ng the nasogastric tube if the patient passes the swallow evaluation. Remained generally weak especially in upper and lower extremities. Continues to have a central line in the right IJ area, this will be removed today since at peripheral IV access was established. Labs today showed a relatively normal CBC, normal electrolytes, normal renal profile. Objective - Vital Signs Vital signs: Vital Signs Temp 98.9 F 04/12/23 08:00 Pulse 65 04/12/23 09:00 Resp 18 04/12/23 09:00 BP 144/65 04/12/23 09:00 Pulse Ox 95 04/12/23 09:00 FiO2 40 04/08/23 08:02 Intake & Output 04/11/23 04/12/23 04/12/23 18:59 06:59 18:59 Intake Total 720.941 60 60 Output Total 1680 550 230 Balance -959.059 -490 -170 Weight 88.1 kg Intake: IV 85 0.9NS 70 0.9NS Pressure Bag 15 Intake, IV Titration 15.941 Amount Insulin Regular 100 unit 15.941 In Sodium Chloride 0.9% 100 ml @ Per Protocol IV .Q0M [facility] Rx#:[id number] Tube Feeding 530 60 60 Other 90 Output: Urine 880 350 230 Stool 800 200 Other: Voiding Method Indwelling Catheter Indwelling Catheter ABP, PAP, CO, CI - Last Documented Arterial Blood Pressure 143/42 - Exam Physical Exam: Revealed 72-year-old female in no distress. Head: Atraumatic, normocephalic. HEENT:[Neck is supple.] [No neck masses.] [No thyromegaly.] [No JVD.] Right IJ triple-lumen catheter is noted. Chest: [Diminished breath sounds at the bases no crackles or rhonchi or wheezes noted today.. Cardiac Exam: [Normal S1 and S2, no S3 gallop, no murmur.] Abdomen: [Abdominal wall edema is noted. Soft, nontender, no megaly, no rebound, no guarding, negative bowel sounds. Extremities: [No clubbing, 2+ bipedal edema Skin: No rashes. Neurological Exam: Seems to be alert oriented 3, verbalizing better today by saying hello, and remained generally weak. Musculoskeletal weakness throughout otherwise negative. - Labs CBC & Chem 7: 04/12/23 03:28 04/12/23 03:28 Labs: Abnormal Lab Results - Last 24 Hours (Table) 04/11/23 04/11/23 04/11/23 Range/Units 10:08 12:20 16:15 RBC (3.80-5.40) m/uL Hgb (11.4-16.0) gm/dL Hct (34.0-46.0) % MCV (80.0-100.0) fL RDW (11.5-15.5) % Neutrophils # (1.3-7.7) k/uL Chloride (98-107) mmol/L Carbon Dioxide (22-30) mmol/L BUN (7-17) mg/dL Creatinine (0.52-1.04) mg/dL Glucose (74-99) mg/dL POC Glucose (mg/dL) 134 H 118 H 152 H (70-110) mg/dL Calcium (8.4-10.2) mg/dL 04/11/23 04/12/23 04/12/23 Range/Units 21:24 00:09 03:28 RBC (3.80-5.40) m/uL Hgb (11.4-16.0) gm/dL Hct (34.0-46.0) % MCV (80.0-100.0) fL RDW (11.5-15.5) % Neutrophils # (1.3-7.7) k/uL Chloride 116 H (98-107) mmol/L Carbon Dioxide 20 L (22-30) mmol/L BUN 21 H (7-17) mg/dL Creatinine 0.50 L (0.52-1.04) mg/dL Glucose 194 H (74-99) mg/dL POC Glucose (mg/dL) 168 H 176 H (70-110) mg/dL Calcium 7.7 L (8.4-10.2) mg/dL 04/12/23 04/12/23 04/12/23 Range/Units 03:28 04:36 08:12 RBC 2.90 L (3.80-5.40) m/uL Hgb 9.7 L (11.4-16.0) gm/dL Hct 30.0 L (34.0-46.0) % MCV 103.3 H (80.0-100.0) fL RDW 15.9 H (11.5-15.5) % Neutrophils # 8.0 H (1.3-7.7) k/uL Chloride (98-107) mmol/L Carbon Dioxide (22-30) mmol/L BUN (7-17) mg/dL Creatinine (0.52-1.04) mg/dL Glucose (74-99) mg/dL POC Glucose (mg/dL) 194 H 167 H (70-110) mg/dL Calcium (8.4-10.2) mg/dL Assessment and Plan Assessment: Impression: Acute hypoxic respiratory failure, this was subsequent to repair of a dural tear and secondary to large volume gastric aspiration requiring intubation and mechanical ventilation. Patient was extubated on 04/09/2023, continues to tolerate the extubation. ARDS, improving Aspiration pneumonia with Enterobacter and Klebsiella organisms in the sputum, remains on IV Zosyn. 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 Dyslipidemia Steroids induced hyperglycemia ileus Anemia of chronic disease Recommendation: transfer to [facility]/med surg Continue speech therapy and physical therapy Continue blood pressure meds , and address accordingly Continue to monitor I's and O's Continue enteral feeding and nutritional support patient is also on TPN Encourage incentive spirometry added immodium for diarrhia Continue GI and DVT prophylaxis Time with Patient: Less than 30
--- NOTE | 2023-04-12 10:58 | P.PN ---
Subjective Progress Note Date: 04/12/23 Hospital Course: Patient is a 72-year-old female with dyslipidemia, hypertension, [id number] pendent diabetes mellitus type 2 who presented for elective T10 to pelvis decompression and fusion. We were consulted for medical management. She underwent successful decompression and fusion on 03/21, however, her postoperative hospital course was complicated by positional headache suspicious for CSF leak. Subsequently, she was taken back to the operating room on 03/29 for CSF repair. During intubation, patient was noted to have significant amounts of the aspirate emesis and oropharynx and after intubation she was noted to have 1.2 L of gastric output from OG tube. During the procedure she had increasing FiO2 requirements. Postoperatively she became hypotensive down to the 70s/30s and hypoxia down to the mid 60s despite FiO2 of 100% and PEEP of 12. She was transferred to the ICU and started on the Levophed. Differential diagnosis of septic shock secondary to meningitis versus aspiration pneumonia as well as hypovolemic shock secondary to CSF volume loss were considered. She was administered 3L of lactated Ringer's. Chest x-ray postoperatively on 03/29 demonstrated diffuse pulmonary edema with concern for ARDS superimposed on aspiration. Empiric antibiotics were started with vancomycin, ceftriaxone, Unasynfor empiric coverage of both meningitis and aspiration pneumonia/ I nfectious disease was consulted. Sputum culture was positive for Klebsiella and Enterobacter with variable resistance. Pro-calcitonin was elevated at 6.7. Her CVP was monitored and remained stable between 13 and 15. Echocardiogram showed EF 60-65%, mild TR, and moderate pulmonary hypertension. Patient was noted to not have a bowel movement in approximately 5 days as of 03/29 and Gen. surgery w as consulted for ileus. She developed sepsis induced atrial fibrillation with RVR, was started on amiodarone drip and converted back to normal sinus rhythm. She is placed on metoprolol once her pressor requirements started to decrease on 04/01, however, this was held after pressor requirements increased again on 04/03. Discussed with orthopedic surgery that no anticoagulation will be given for at rial fibrillation during the critical phase, but can be initiated once patient is able to be transitioned to the floor. She did require nimbex which was successfully stopped on 04/03/23, she was given relistor on 04/03/23 and started having bowel movements. She was able to come off levo on 04/04/23. After patient was weaned off of vasopressor agents she did have some episodes of hypertension requiring a cleft pain drip as she was unable to tolerate oral feedings. Patient continued to have bowel movements and tube feeds were started at trickle. She was successfully extubated on 04/08/23. She required a fecal management system, and her reglan was stopped. Mental status improved. Plan to pull of NG tube and begin oral intake. Subjective: Patient seen and examined at bedside. No acute events overnight. mental status and weakness is improved. Pertinent positives and negatives as discussed above, a complete review of systems was performed and all other systems are negative. Vitals Signs Reviewed. General: nontoxic, no distress, appears at stated age Cardiovascular: S1S2 reg, no murmur, positive posterior tibial pulse bilateral, Lungs: Coarse breath sounds bilateral, no rhonchi, no rales , no accessory muscle use Abdominal: soft, nontender to palpation, no guarding, no appreciable organomegaly Ext: no gross muscle atrophy, Anasarca , no contractures Neuro: moving all extremities Psych: Awake, alert and oriented x2 Data Reviewed Today: Pertinent Labs: WBC 10.1, hemoglobin 9.7, sodium 143, potassium 3.6, creatinine 0.5, blood sugars range between 167-194 Imaging: Chest x-ray independently interpreted, shows pulmonary vascular congestion, similar to yesterday Assessment and Plan: Multi-focal pneumonia,due to Klebsiella and Enterobacter complicated by septic shock, no longer on pressors Ventilator Dependent Acute Hypoxemic and Hypercarbic Respiratory Failure, ARDS, now on nasal cannula Postoperative ileus, resolved now with diarrhea Toxic metabolic encepahlopathy , possible hypoactive delirium Profound weakness, possibly critical illness myopathy - Pulm following, likely transfer out of the ICU today - Surgery following, patient remains on tube feeds, TPN discontinued - Status post Zosyn - ID following - Likely discontinue NG tube and start Sepsis induced atrial fibrillation with RVR, paroxysmal Accelerated HTN - Lisinopril 40 mg, continue lopressor 25 mg twice daily - Amiodarone 200 mg oral twice daily - Xarelto 20 mg daily 72-year-old female status post T10 to pelvis decompression with fusion s/p CSF repair on 03/29 - ortho note reviewed, no new recommendations Acute blood loss anemia, stable - s/p 3 unit pRBC - Anticipated outcome of surgery/prolonged ICU stay - Follow CBC Diabetes mellitus type 2 -Hold metformin -While on tube feeds, continue sliding scale insulin every 4 hours -We'll switch it to before meals at bedtime sliding scale once started oral intake -Follow blood sugars Dyslipidemia -Gemfibrozil Metabolic acidosis, resolved DVT ppx: Xarelto Code status: Full code Anticipated discharge place: Pending clinical course Anticipated discharge time: Pending clinical course Thank you for allowing us to participate in the care of this pleasant patient. Do not hesitate to contact us with questions. Someone can be reached from the [facility] hospitalist group all hours of the day at [phone] or via [employer]. Objective - Vital Signs Vital signs: Vital Signs Temp 98.9 F 04/12/23 08:00 Pulse 65 04/12/23 10:00 Resp 22 04/12/23 10:00 BP 139/85 04/12/23 10:00 Pulse Ox 95 04/12/23 10:00 FiO2 40 04/08/23 08:02 Intake & Output 04/11/23 04/12/23 04/12/23 18:59 06:59 18:59 Intake Total 720.941 60 60 Output Total 1680 550 230 Balance -959.059 -490 -170 Weight 88.1 kg Intake: IV 85 0.9NS 70 0.9NS Pressure Bag 15 Intake, IV Titration 15.941 Amount Insulin Regular 100 unit 15.941 In Sodium Chloride 0.9% 100 ml @ Per Protocol IV .Q0M [facility] Rx#:[id number] Tube Feeding 530 60 60 Other 90 Output: Urine 880 350 230 Stool 800 200 Other: Voiding Method Indwelling Catheter Indwelling Catheter ABP, PAP, CO, CI - Last Documented Arterial Blood Pressure 143/42 - Labs CBC & Chem 7: 04/12/23 03:28 04/12/23 03:28 Labs: Abnormal Lab Results - Last 24 Hours (Table) 04/11/23 04/11/23 04/11/23 Range/Units 12:20 16:15 21:24 RBC (3.80-5.40) m/uL Hgb (11.4-16.0) gm/dL Hct (34.0-46.0) % MCV (80.0-100.0) fL RDW (11.5-15.5) % Neutrophils # (1.3-7.7) k/uL Chloride (98-107) mmol/L Carbon Dioxide (22-30) mmol/L BUN (7-17) mg/dL Creatinine (0.52-1.04) mg/dL Glucose (74-99) mg/dL POC Glucose (mg/dL) 118 H 152 H 168 H (70-110) mg/dL Calcium (8.4-10.2) mg/dL 04/12/23 04/12/23 04/12/23 Range/Units 00:09 03:28 03:28 RBC 2.90 L (3.80-5.40) m/uL Hgb 9.7 L (11.4-16.0) gm/dL Hct 30.0 L (34.0-46.0) % MCV 103.3 H (80.0-100.0) fL RDW 15.9 H (11.5-15.5) % Neutrophils # 8.0 H (1.3-7.7) k/uL Chloride 116 H (98-107) mmol/L Carbon Dioxide 20 L (22-30) mmol/L BUN 21 H (7-17) mg/dL Creatinine 0.50 L (0.52-1.04) mg/dL Glucose 194 H (74-99) mg/dL POC Glucose (mg/dL) 176 H (70-110) mg/dL Calcium 7.7 L (8.4-10.2) mg/dL 04/12/23 04/12/23 Range/Units 04:36 08:12 RBC (3.80-5.40) m/uL Hgb (11.4-16.0) gm/dL Hct (34.0-46.0) % MCV (80.0-100.0) fL RDW (11.5-15.5) % Neutrophils # (1.3-7.7) k/uL Chloride (98-107) mmol/L Carbon Dioxide (22-30) mmol/L BUN (7-17) mg/dL Creatinine (0.52-1.04) mg/dL Glucose (74-99) mg/dL POC Glucose (mg/dL) 194 H 167 H (70-110) mg/dL Calcium (8.4-10.2) mg/dL
[2023-04-12] MEDS: LOPERAMIDE 2 MG CAP PO PRN ×2 (12:49→21:44)
--- NOTE | 2023-04-12 12:49 | P.PN ---
Subjective Progress Note Date: 04/12/23 CHIEF COMPLAINT: Back pain HISTORY OF PRESENT ILLNESS: Patient remains in the ICU. She is having diarrhea and has FMS in place. Patient is on tube feeds at 60ml/hr. Patient has no new complaints. Afebrile. Sodium 143 potassium is 3.6 magnesium 2.1 Patient seen by speech therapy they have advance diet to dysphagia ground with a thickened liquids. She's oral intake is decreased. They are continuing tube feeds well oral intake is decreased PHYSICAL EXAM: VITAL SIGNS: Reviewed. GENERAL: Well-developed in no acute distress. ABDOMEN: Soft nondistended. Nontender ASSESSMENT: 1. Postop ileus resolved 2. Status post T10 to pelvis decompression with fusion with drainage from surgical site status post irrigation and debridement 3. Possible aspiration pneumonia PLAN: -Speech therapy is recommended a dysphagia ground with honey thickened liquids diet -Continue supportive care Physician Auto Damage Appraiser note has been reviewed by physician. Signing provider agrees with the documented findings, assessment, and plan of care. Objective - Vital Signs Vital signs: Vital Signs Temp 97.9 F 04/12/23 12:00 Pulse 72 04/12/23 12:00 Resp 26 H 04/12/23 12:00 BP 130/80 04/12/23 12:00 Pulse Ox 94 L 04/12/23 12:00 FiO2 40 04/08/23 08:02 Intake & Output 04/11/23 04/12/23 04/12/23 18:59 06:59 18:59 Intake Total 720.941 60 60 Output Total 1680 550 230 Balance -959.059 -490 -170 Weight 88.1 kg Intake: IV 85 0.9NS 70 0.9NS Pressure Bag 15 Intake, IV Titration 15.941 Amount Insulin Regular 100 unit 15.941 In Sodium Chloride 0.9% 100 ml @ Per Protocol IV .Q0M [facility] Rx#:[id number] Tube Feeding 530 60 60 Other 90 Output: Urine 880 350 230 Stool 800 200 Other: Voiding Method Indwelling Catheter Indwelling Catheter ABP, PAP, CO, CI - Last Documented Arterial Blood Pressure 143/42 - Labs CBC & Chem 7: 04/12/23 03:28 04/12/23 03:28 Labs: Abnormal Lab Results - Last 24 Hours (Table) 04/11/23 04/11/23 04/12/23 Range/Units 16:15 21:24 00:09 RBC (3.80-5.40) m/uL Hgb (11.4-16.0) gm/dL Hct (34.0-46.0) % MCV (80.0-100.0) fL RDW (11.5-15.5) % Neutrophils # (1.3-7.7) k/uL Chloride (98-107) mmol/L Carbon Dioxide (22-30) mmol/L BUN (7-17) mg/dL Creatinine (0.52-1.04) mg/dL Glucose (74-99) mg/dL POC Glucose (mg/dL) 152 H 168 H 176 H (70-110) mg/dL Calcium (8.4-10.2) mg/dL 04/12/23 04/12/23 04/12/23 Range/Units 03:28 03:28 04:36 RBC 2.90 L (3.80-5.40) m/uL Hgb 9.7 L (11.4-16.0) gm/dL Hct 30.0 L (34.0-46.0) % MCV 103.3 H (80.0-100.0) fL RDW 15.9 H (11.5-15.5) % Neutrophils # 8.0 H (1.3-7.7) k/uL Chloride 116 H (98-107) mmol/L Carbon Dioxide 20 L (22-30) mmol/L BUN 21 H (7-17) mg/dL Creatinine 0.50 L (0.52-1.04) mg/dL Glucose 194 H (74-99) mg/dL POC Glucose (mg/dL) 194 H (70-110) mg/dL Calcium 7.7 L (8.4-10.2) mg/dL 04/12/23 Range/Units 08:12 RBC (3.80-5.40) m/uL Hgb (11.4-16.0) gm/dL Hct (34.0-46.0) % MCV (80.0-100.0) fL RDW (11.5-15.5) % Neutrophils # (1.3-7.7) k/uL Chloride (98-107) mmol/L Carbon Dioxide (22-30) mmol/L BUN (7-17) mg/dL Creatinine (0.52-1.04) mg/dL Glucose (74-99) mg/dL POC Glucose (mg/dL) 167 H (70-110) mg/dL Calcium (8.4-10.2) mg/dL
[2023-04-12 16:32] LABS: Glucose,Whole Blood 155 mg/dL (70-110)
[2023-04-12] MEDS: RIVAROXABAN 20 MG TAB PO SCH (17:00)
[2023-04-12 21:46] LABS: Glucose,Whole Blood 166 mg/dL (70-110)
[2023-04-13] MEDS: INSULIN ASPART (NovoLOG) 100 UNIT/ML VIAL SQ SCH ×7 (03:53→23:58)
[2023-04-13 04:42] LABS: Glucose,Whole Blood 196 mg/dL (70-110)
[2023-04-13 06:24] LABS: Anisocytosis Slight; Basophils % (A) 0 %; Eosinophils # (A) 0.4 k/uL (0-0.7); Eosinophils % (A) 3 %; HCT 33.5 % (34.0-46.0); HGB 10.4 gm/dL (11.4-16.0); Hypochromasia Moderate; Lymphocytes # (A) 1.3 k/uL (1.0-4.8); Lymphocytes % (A) 9 %; MCH 32.3 pg (25.0-35.0); MCHC 30.9 g/dL (31.0-37.0); MCV 104.4 fL (80.0-100.0); Macrocytosis Moderate; Mean Platelet Volume 8.1; Monocytes # (A) 0.4 k/uL (0-1.0); Monocytes % (A) 3 %; Neutrophils # (A) 11.5 k/uL (1.3-7.7); Neutrophils % (A) 84 %; Platelet Count 299 k/uL (150-450); RBC 3.21 m/uL (3.80-5.40); RDW 16.1 % (11.5-15.5); WBC 13.7 k/uL (3.8-10.6)
[2023-04-13 06:30] LABS: African American GFR (CKD) >90 (>60 ml/min/1.73 sqM); Anion Gap 7 mmol/L; Blood Urea Nitrogen 19 mg/dL (7-17); Calcium 8.1 mg/dL (8.4-10.2); Carbon Dioxide 19 mmol/L (22-30); Chloride 117 mmol/L (98-107); Glucose 160 mg/dL (74-99); Magnesium 2.1 mg/dL (1.6-2.3); Non-African American GFR(CKD) >90 (>60 ml/min/1.73 sqM); Phosphorus 2.6 mg/dL (2.5-4.5); Potassium 3.8 mmol/L (3.5-5.1); Sodium 143 mmol/L (137-145)
[2023-04-13] MEDS ORDERED: POTASSIUM BICARBONATE/CIT AC 20 MEQ TABLET.EFF NG-TUBE SCH (07:00)
[2023-04-13] MEDS: LOPERAMIDE 2 MG CAP PO PRN (07:55)
[2023-04-13] MEDS: METOPROLOL TARTRATE 25 MG TAB PO SCH ×2 (08:13→20:19)
[2023-04-13] MEDS: lisinopriL 20 MG TAB PO SCH (08:13)
[2023-04-13] MEDS: GABAPENTIN 100 MG CAP PO SCH ×3 (08:14→20:19)
[2023-04-13] MEDS: AMIODARONE 200 MG TAB PO SCH ×2 (08:14→20:19)
[2023-04-13] MEDS: PANTOPRAZOLE 40 MG/10 ML VIAL IV SCH (08:14)
--- NOTE | 2023-04-13 08:33 | P.PN ---
Subjective Progress Note Date: 04/13/23 Principal diagnosis: 1. L1-S1 spondylosis with stenosis 2. L1-S1 spondylolisthesis 3. Lower extremity radiculopathy 4. Low back pain 5. Lower extremity weakness Patient seen and examined this morning. Patient is awake and resting comfortably in bed. VSS, patient is on room air O2 sat 95%. maintenance mechanic 2nd shift RN did report that patient pulled her NG tube out early this morning. Patient continues to have difficulty with verbalizing answers, this is improving. Patient is able to move upper and lower extremities. Patient was assisted to EOB yesterday and with max assist to stand at side of bed. She is having poor core strength and balance, which is to be expected at this time. Patient was assisted to the chair via chao lift and sling. She tolerated activity well. Surgical dressing was changed today. Liquid bowel movements continue, fecal management system in place and patent. SCDs are present to lower extremities. Continue with PT and speech therapies. Objective - Vital Signs Vital signs: Vital Signs Temp 98.4 F 04/13/23 04:00 Pulse 76 04/13/23 04:00 Resp 23 04/13/23 04:00 BP 125/55 04/13/23 04:00 Pulse Ox 94 L 04/13/23 04:00 FiO2 40 04/08/23 08:02 Intake & Output 04/12/23 04/13/23 04/13/23 18:59 06:59 18:59 Intake Total 600 600 Output Total 850 825 Balance -250 -225 Intake: Tube Feeding 540 540 Other 60 60 Output: Urine 650 625 Stool 200 200 Other: Voiding Method Indwelling Catheter Indwelling Catheter ABP, PAP, CO, CI - Last Documented Arterial Blood Pressure 143/42 - Exam Physical Examination General: The patient is awake and alert, in no acute distress Skin: Skin is warm and dry with no obvious rashes or lesions. There is +1 generalized edema in bilateral upper and lower extremities. Surgical dressing to the thoracolumbar region has been changed this morning. Incision is well approximated with sutures and trinh. No active drainage noted. Eye: Pupils are equal, round and reactive to light, extra-ocular movements are intact; there is normal conjunctiva bilaterally. Neck: The neck is supple, there is no tenderness and ROM intact. Cardiovascular: There is a regular rate and rhythm. No murmur, rub or gallop is appreciated. Gastrointestinal: Soft, non-distended, non-tender abdomen. He continues with loose stools, fecal management system is in place. Back: There is no tenderness to palpation in the midline, paralumbar, parathoracic or buttocks region. There is no obvious deformity . Musculoskeletal: ROM limited secondary to weakness. Patient is able to move her upper and lower extremities. Neurological: Negative Hoffmans, babinski, and clonus signs. Psychiatric: Cooperative, appropriate mood & affect. - Labs CBC & Chem 7: 04/13/23 05:50 04/13/23 05:49 Labs: Abnormal Lab Results - Last 24 Hours (Table) 04/12/23 04/12/23 04/12/23 Range/Units 08:12 16:31 21:45 WBC (3.8-10.6) k/uL RBC (3.80-5.40) m/uL Hgb (11.4-16.0) gm/dL Hct (34.0-46.0) % MCV (80.0-100.0) fL MCHC (31.0-37.0) g/dL RDW (11.5-15.5) % Neutrophils # (1.3-7.7) k/uL Chloride (98-107) mmol/L Carbon Dioxide (22-30) mmol/L BUN (7-17) mg/dL Glucose (74-99) mg/dL POC Glucose (mg/dL) 167 H 155 H 166 H (70-110) mg/dL Calcium (8.4-10.2) mg/dL 04/13/23 04/13/23 04/13/23 Range/Units 04:41 05:49 05:50 WBC 13.7 H (3.8-10.6) k/uL RBC 3.21 L (3.80-5.40) m/uL Hgb 10.4 L (11.4-16.0) gm/dL Hct 33.5 L (34.0-46.0) % MCV 104.4 H (80.0-100.0) fL MCHC 30.9 L (31.0-37.0) g/dL RDW 16.1 H (11.5-15.5) % Neutrophils # 11.5 H (1.3-7.7) k/uL Chloride 117 H (98-107) mmol/L Carbon Dioxide 19 L (22-30) mmol/L BUN 19 H (7-17) mg/dL Glucose 160 H (74-99) mg/dL POC Glucose (mg/dL) 196 H (70-110) mg/dL Calcium 8.1 L (8.4-10.2) mg/dL Assessment and Plan Assessment: Postop Day 15: Irrigation and Debridement with revision dural repair lumbar spine ; Postop Day 23: [id number] decompression and fusion 1. Aspiration Pneumonia 2. Post-op Ileus 3. Post-op anemia-resolved 4. L1-S1 spondylosis with stenosis 5. L1-S1 spondylolisthesis 6. Lower extremity radiculopathy 7. Low back pain 8. Lower extremity weakness Plan: -Appreciate school plant consultant and team management. -Activity: Continue to sit patient up and mobilize her upper and lower extremities. -Pain control: Adequate at this time -Meds: reviewed -GI ppx: protonix -DVT PPX: SCDs and TEDS -Hygiene: Maintain dressing clean and dry. Meticulous cleaning after BMs away from the incision site -Dispo: Clinically pending *I reviewed and discussed this case with my attending Dr. Duong, whom has reviewed this chart and films and is in agreement with assessment and plan of care as outlined above. I have personally seen and examined the patient, performed the documentation and the assessment and plan as written. Number of minutes spent on the visit: 20m.
[2023-04-13] MEDS: IPRATROPIUM-ALBUTEROL 3 ML NEB INHALATION SCH (08:37)
[2023-04-13 08:51] LABS: Ionized Calcium 4.9 mg/dL (4.5-5.3)
[2023-04-13] MEDS ORDERED: IPRATROPIUM-ALBUTEROL 3 ML NEB INHALATION PRN (08:51)
--- NOTE | 2023-04-13 10:55 | P.PN ---
Subjective Progress Note Date: 04/13/23 Hospital Course: Patient is a 72-year-old female with dyslipidemia, hypertension, [id number] pendent diabetes mellitus type 2 who presented for elective T10 to pelvis decompression and fusion. We were consulted for medical management. She underwent successful decompression and fusion on 03/21, however, her postoperative hospital course was complicated by positional headache suspicious for CSF leak. Subsequently, she was taken back to the operating room on 03/29 for CSF repair. During intubation, patient was noted to have significant amounts of the aspirate emesis and oropharynx and after intubation she was noted to have 1.2 L of gastric output from OG tube. During the procedure she had increasing FiO2 requirements. Postoperatively she became hypotensive down to the 70s/30s and hypoxia down to the mid 60s despite FiO2 of 100% and PEEP of 12. She was transferred to the ICU and started on the Levophed. Differential diagnosis of septic shock secondary to meningitis versus aspiration pneumonia as well as hypovolemic shock secondary to CSF volume loss were considered. She was administered 3L of lactated Ringer's. Chest x-ray postoperatively on 03/29 demonstrated diffuse pulmonary edema with concern for ARDS superimposed on aspiration. Empiric antibiotics were started with vancomycin, ceftriaxone, Unasynfor empiric coverage of both meningitis and aspiration pneumonia/ I nfectious disease was consulted. Sputum culture was positive for Klebsiella and Enterobacter with variable resistance. Pro-calcitonin was elevated at 6.7. Her CVP was monitored and remained stable between 13 and 15. Echocardiogram showed EF 60-65%, mild TR, and moderate pulmonary hypertension. Patient was noted to not have a bowel movement in approximately 5 days as of 03/29 and Gen. surgery w as consulted for ileus. She developed sepsis induced atrial fibrillation with RVR, was started on amiodarone drip and converted back to normal sinus rhythm. She is placed on metoprolol once her pressor requirements started to decrease on 04/01, however, this was held after pressor requirements increased again on 04/03. Discussed with orthopedic surgery that no anticoagulation will be given for at rial fibrillation during the critical phase, but can be initiated once patient is able to be transitioned to the floor. She did require nimbex which was successfully stopped on 04/03/23, she was given relistor on 04/03/23 and started having bowel movements. She was able to come off levo on 04/04/23. After patient was weaned off of vasopressor agents she did have some episodes of hypertension requiring a cleft pain drip as she was unable to tolerate oral feedings. Patient continued to have bowel movements and tube feeds [facility]. She was successfully extubated on 04/08/23. She required a fecal management system, and her reglan was stopped. Mental status improved. NG tube is out, patient started oral intake. Subjective: Patient seen and examined at bedside. No acute events overnight. mental status and weakness is improved. Rectal tube and Garnett catheter still in place. Pertinent positives and negatives as discussed above, a complete review of systems was performed and all other systems are negative. Vitals Signs Reviewed. General: nontoxic, no distress, appears at stated age Cardiovascular: S1S2 reg, no murmur, positive posterior tibial pulse bilateral, Lungs: Coarse breath sounds bilateral, no rhonchi, no rales , no accessory muscle use Abdominal: soft, nontender to palpation, no guarding, no appreciable organomegaly Ext: no gross muscle atrophy, Anasarca , no contractures Neuro: moving all extremities Psych: Awake, alert and oriented x2 Data Reviewed Today: Pertinent Labs: WBC 13.7, hemoglobin 10.4, bicarb 19, creatinine 0.53, blood sugars range between 155-196 Imaging: No new imaging Assessment and Plan: Multi-focal pneumonia,due to Klebsiella and Enterobacter complicated by septic shock, no longer on pressors Ventilator Dependent Acute Hypoxemic and Hypercarbic Respiratory Failure, ARDS, now on nasal cannula Postoperative ileus, resolved now with diarrhea Toxic metabolic encepahlopathy , possible hypoactive delirium, resolving Profound weakness, possibly critical illness myopathy - Pulm following, pending transfer to the ICU - Surgery following, on oral intake -Completed a course of IV Zosyn - ID following -Still had significant diarrhea, has had a rectal tube in place, on loperamide Sepsis induced atrial fibrillation with RVR, paroxysmal Hypertension - Lisinopril 40 mg, continue lopressor 25 mg twice daily - Amiodarone 200 mg oral twice daily - Xarelto 20 mg daily Status post T10 to pelvis decompression with fusion s/p CSF repair on 03/29 - ortho note reviewed, no new recommendations Acute blood loss anemia, stable - s/p 3 unit pRBC - Anticipated outcome of surgery/prolonged ICU stay - Follow CBC Diabetes mellitus type 2 -Hold metformin -While on tube feeds, continue sliding scale insulin every 4 hours -We'll switch it to before meals at bedtime sliding scale once oral intake improves -Follow blood sugars Dyslipidemia -Gemfibrozil Metabolic acidosis, likely related diarrhea -oral bicarb DVT ppx: Xarelto Code status: Full code Anticipated discharge place: [facility] Anticipated discharge time: Pending clinical course Objective - Vital Signs Vital signs: Vital Signs Temp 98.3 F 04/13/23 08:00 Pulse 94 04/13/23 08:47 Resp 24 04/13/23 08:34 BP 162/62 04/13/23 08:00 Pulse Ox 94 L 04/13/23 08:00 FiO2 40 04/08/23 08:02 Intake & Output 04/12/23 04/13/23 04/13/23 18:59 06:59 18:59 Intake Total 600 600 Output Total 850 825 Balance -250 -225 Intake: Tube Feeding 540 540 Other 60 60 Output: Urine 650 625 Stool 200 200 Other: Voiding Method Indwelling Catheter Indwelling Catheter Indwelling Catheter ABP, PAP, CO, CI - Last Documented Arterial Blood Pressure 143/42 - Labs CBC & Chem 7: 04/13/23 05:50 04/13/23 05:49 Labs: Abnormal Lab Results - Last 24 Hours (Table) 04/12/23 04/12/23 04/13/23 Range/Units 16:31 21:45 04:41 WBC (3.8-10.6) k/uL RBC (3.80-5.40) m/uL Hgb (11.4-16.0) gm/dL Hct (34.0-46.0) % MCV (80.0-100.0) fL MCHC (31.0-37.0) g/dL RDW (11.5-15.5) % Neutrophils # (1.3-7.7) k/uL Chloride (98-107) mmol/L Carbon Dioxide (22-30) mmol/L BUN (7-17) mg/dL Glucose (74-99) mg/dL POC Glucose (mg/dL) 155 H 166 H 196 H (70-110) mg/dL Calcium (8.4-10.2) mg/dL 04/13/23 04/13/23 Range/Units 05:49 05:50 WBC 13.7 H (3.8-10.6) k/uL RBC 3.21 L (3.80-5.40) m/uL Hgb 10.4 L (11.4-16.0) gm/dL Hct 33.5 L (34.0-46.0) % MCV 104.4 H (80.0-100.0) fL MCHC 30.9 L (31.0-37.0) g/dL RDW 16.1 H (11.5-15.5) % Neutrophils # 11.5 H (1.3-7.7) k/uL Chloride 117 H (98-107) mmol/L Carbon Dioxide 19 L (22-30) mmol/L BUN 19 H (7-17) mg/dL Glucose 160 H (74-99) mg/dL POC Glucose (mg/dL) (70-110) mg/dL Calcium 8.1 L (8.4-10.2) mg/dL
[2023-04-13 11:30] LABS: Glucose,Whole Blood 159 mg/dL (70-110)
--- NOTE | 2023-04-13 11:44 | P.PN ---
Subjective Progress Note Date: 04/13/23 Principal diagnosis: Status post [id number] decompression and fusion postoperative day # 23 Status post irrigation and debridement with revision/juvenile repair of the lumbar spine postoperative day # 15 I am seeing this patient in new consultation today 03/22/2023 status postoperative day #1 following an elective T10 to pelvis decompression and fusion. Patient is a 72-year-old female with past medical history significant for chronic back pain and lumbar radiculopathy, diabetes mellitus type 2, hyperlipidemia, hypertension. Patient has been complaining of lumbar radiculopathy like symptoms earlier this year, and was evaluated by Dr. Duong. She was found to have multilevel spondylosis and spondylolisthesis. She underwent an elective T10 to pelvis decompression and fusion yesterday with Dr. Duong. She did have some postoperative hypotension. Estimated blood loss was reported as 700 ML's. She was given 1 unit PRBC, and a total of 2.5 L normal saline bolus. Blood pressures are now normotensive. Urine output is adequate in the order of 50-60 ML's per hour. Patient was extubated successfully in recovery, currently on 4 L/m nasal cannula, in no acute distress. Postoperative chest x-ray shows no acute cardiopulmonary processes. There is a right sided intrajugular central line catheter near the cavoatrial junction. There were also some postsurgical changes. Patient is currently supine in bed. No focal neurological deficits. She is able to move all 4 extremities. Denies any sensation disturbances or saddle anesthesia. Postoperative CBC shows WBC count of 11.7, hemoglobin 8, hematocrit 23, platelets 173. BMP sodium 136, potassium 3.8, chloride 109, serum bicarb 11, BUN 18, creatinine 0.6, glucose 220. Magnesium was low at 1.3. Normal saline with 20 mEq of potassium is infusing at 50 ML's per hour. Nasal swab was positive and colonized with MSSA preoperatively, and the patient is currently on cefazolin. Pain is reportedly well managed on current regimen. Patient will be monitored in the intensive care unit. 03/23/2023, patient remains in the ICU, hemodynamically stable, doing extremely well, denies any headache no blurred vision, no nausea no vomiting no abdominal pain, she has improvement in her radicular pain and numbness and tingling into the lower extremities. Her hemoglobin today is 9.3, Garnett catheter remains in place, patient will likely be transferred out of the ICU to a medical surgical floor today. WBC count is 10.5 hemoglobin 9.3 electrodes are normal renal profile is normal. Bicarb is 19 04/09/2023, the patient is extubated on oxygen at 2 L/m nasal cannula. Profoundly weak, still lethargic, follows simple commands and unable to move her arms, she is able to wiggle her toes and she does have facial expression in response to questions. No signs of any respiratory distress. Chest x-ray is showing stable but the pulmonary infiltrates post-ARDS. She does have a cough and a gag. NG tube was kept in place and the patient started having diarrhea as of yesterday. The fecal management system was inserted and the patient has produced approximately 300 mL of stool since yesterday. We'll check stool for C. diff. At the same time, she is running higher blood pressure post extubation. The patient was started on Cleviprex dripp and this was discontinued this morning. The patientis running higher blood pressure. She did have few episodes of atrial fibrillation overnight and currently her rhythm is back to sinus.she remains on TPN for nutritional support pH remains on IV steroids. She remains on an insulin drip currently running at 10 units an hour. She continues to diabetes. She has another negative fluid balance of at least 2 L over the past 24 hours. The white cell count is at 12.4, hemoglobin is at 9.8. BUN is 33 with a creatinine of 0.6 and a sodium level is at 143 with a potassium level of 4.1. The patient is on IV Zosyn that was started on 04/03 and the patient has nearly completed her course. 04/10/2023, patient remains in the ICU, remains extubated, she is on 2 L nasal cannula, requiring insulin drip at 9 units per hour, she is also on TPN, 45 mL per hour. Continues to have a nasogastric tube in place, and she is receiving trickle feedings, 10 mL per hour. Patient remains on Zosyn, continues to have difficulty with swallowing and with her speech, patient is to have speech and swallow evaluation today. Continues to have upper extremities weakness, not in any form of respiratory distress. She does have a cough reflex and a gag reflex. C. difficile screening was negative WBC count today is 8.5 hemoglobin is 9.8, basic metabolic profile is normal with normal electrolytes and normal renal profile. Fecal management system remains in place. Physical therapy is continued performing range of motion exercises for her extremities and joints. Patient is marginal at best. Patient was reevaluated 04/11/2023, remains in the ICU, basically about the same, she is on 2 L nasal cannula, does not seem to be in any distress, very by lysing better today at patient could say hello without any difficulty. Tends not to speak unless asked to do so. Otherwise she is using facial expressions. And using her hands. Patient remained generally weak, nonetheless she is able to move her upper and lower extremities. Continues to be followed by physical therapy and speech therapy. WBC count today is 10.7 hemoglobin is 9.6. Basic metabolic profile is normal. Chest x-ray showed minimal pulmonary vascular congestion and atelectasis especially at the left base. reevaluated today on 04/12/2023 patient may is in the ICU as an overflow. She is very comfortable, not in any distress, patient is on room air, still receiving enteral feeding at 60 ML per hour, chest x-ray showing more left basilar atelectasis, patient is doing well with incentive spirometry, continues to have significant amount of diarrhea. Hence Imodium was added today. She was supposed to have another swallow evaluation today, and possibly decide on removi ng the nasogastric tube if the patient passes the swallow evaluation. Remained generally weak especially in upper and lower extremities. Continues to have a central line in the right IJ area, this will be removed today since at peripheral IV access was established. Labs today showed a relatively normal CBC, normal electrolytes, normal renal profile. Reevaluated today on 04/13/2023, remains in the ICU as an overflow. Patient is doing well overall, she is getting a bit stronger nonetheless remained generally weak. Patient is able to swallow, she passed a swallow evaluation, and now she is being fed, and her nasogastric tube has been removed. Patient is still having diarrhea, and she remains on Imodium. Undergoing physical therapy and range of motion therapy, patient will need a roasterman course of treatment/physical therapy, and eventually she needs to be considered for rehab in [facility]. CBC today is basically unremarkable a bit of leukocytosis noted WBC count of 15.7 and electrolytes are normal renal profile is normal, blood sugar is 159 Objective - Vital Signs Vital signs: Vital Signs Temp 98.3 F 04/13/23 08:00 Pulse 94 04/13/23 08:47 Resp 24 04/13/23 08:34 BP 162/62 04/13/23 08:00 Pulse Ox 94 L 04/13/23 08:00 FiO2 40 04/08/23 08:02 Intake & Output 04/12/23 04/13/23 04/13/23 18:59 06:59 18:59 Intake Total 600 600 120 Output Total 850 825 220 Balance -250 -225 -100 Intake: Oral 120 Tube Feeding 540 540 Other 60 60 Output: Urine 650 625 220 Stool 200 200 Other: Voiding Method Indwelling Catheter Indwelling Catheter Indwelling Catheter ABP, PAP, CO, CI - Last Documented Arterial Blood Pressure 143/42 - Exam Physical Exam: Revealed 72-year-old female in no distress. Remains on room air Head: Atraumatic, normocephalic. HEENT:[Neck is supple.] [No neck masses.] [No thyromegaly.] [No JVD.] Triple-l umen catheter has been removed nasogastric tube has been removed Chest: [Diminished breath sounds at the bases no crackles or rhonchi or wheezes noted today.. Cardiac Exam: [Normal S1 and S2, no S3 gallop, no murmur.] Abdomen: [Abdominal wall edema is noted. Soft, nontender, no megaly, no rebound, no guarding, negative bowel sounds. Extremities: [No clubbing, 2+ bipedal edema Skin: No rashes. Neurological Exam: Seems to be alert oriented 3, verbalizes intermittently. Musculoskeletal weakness throughout otherwise negative. - Labs CBC & Chem 7: 04/13/23 05:50 04/13/23 05:49 Labs: Abnormal Lab Results - Last 24 Hours (Table) 04/12/23 04/12/23 04/13/23 Range/Units 16:31 21:45 04:41 WBC (3.8-10.6) k/uL RBC (3.80-5.40) m/uL Hgb (11.4-16.0) gm/dL Hct (34.0-46.0) % MCV (80.0-100.0) fL MCHC (31.0-37.0) g/dL RDW (11.5-15.5) % Neutrophils # (1.3-7.7) k/uL Chloride (98-107) mmol/L Carbon Dioxide (22-30) mmol/L BUN (7-17) mg/dL Glucose (74-99) mg/dL POC Glucose (mg/dL) 155 H 166 H 196 H (70-110) mg/dL Calcium (8.4-10.2) mg/dL 04/13/23 04/13/23 04/13/23 Range/Units 05:49 05:50 11:28 WBC 13.7 H (3.8-10.6) k/uL RBC 3.21 L (3.80-5.40) m/uL Hgb 10.4 L (11.4-16.0) gm/dL Hct 33.5 L (34.0-46.0) % MCV 104.4 H (80.0-100.0) fL MCHC 30.9 L (31.0-37.0) g/dL RDW 16.1 H (11.5-15.5) % Neutrophils # 11.5 H (1.3-7.7) k/uL Chloride 117 H (98-107) mmol/L Carbon Dioxide 19 L (22-30) mmol/L BUN 19 H (7-17) mg/dL Glucose 160 H (74-99) mg/dL POC Glucose (mg/dL) 159 H (70-110) mg/dL Calcium 8.1 L (8.4-10.2) mg/dL Assessment and Plan Assessment: Impression: Acute hypoxic respiratory failure, this was subsequent to repair of a dural tear and secondary to large volume gastric aspiration requiring intubation and mechanical ventilation. Patient was extubated on 04/09/2023, continues to tolerate the extubation. 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 Continue incentive spirometry Continue Imodium recheck C. difficile screening Continue GI and DVT prophylaxis Time with Patient: Less than 30
--- NOTE | 2023-04-13 12:21 | P.PN ---
Subjective Progress Note Date: 04/13/23 CHIEF COMPLAINT: Back pain HISTORY OF PRESENT ILLNESS: Patient remains in the ICU. She is having diarrhea and has FMS in place. Patient pulled his NG tube out. NG tube is in place for tube feeds. Patient is on a ground diet and eating a small amount. Denies any abdominal pain. Denies any nausea or vomiting. Afebrile. WBC 13.7 PHYSICAL EXAM: VITAL SIGNS: Reviewed. GENERAL: Well-developed in no acute distress. ABDOMEN: Soft nondistended. Nontender ASSESSMENT: 1. Postop ileus resolved 2. Status post T10 to pelvis decompression with fusion with drainage from surgical site status post irrigation and debridement 3. Possible aspiration pneumonia PLAN: -Continue dysphagia ground with honey thickened liquids diet -Continue supportive care Physician Music Instructor note has been reviewed by physician. Signing provider agrees with the documented findings, assessment, and plan of care. Objective - Vital Signs Vital signs: Vital Signs Temp 98.3 F 04/13/23 08:00 Pulse 94 04/13/23 08:47 Resp 24 04/13/23 08:34 BP 162/62 04/13/23 08:00 Pulse Ox 94 L 04/13/23 08:00 FiO2 40 04/08/23 08:02 Intake & Output 04/12/23 04/13/23 04/13/23 18:59 06:59 18:59 Intake Total 600 600 120 Output Total 850 825 220 Balance -250 -225 -100 Intake: Oral 120 Tube Feeding 540 540 Other 60 60 Output: Urine 650 625 220 Stool 200 200 Other: Voiding Method Indwelling Catheter Indwelling Catheter Indwelling Catheter ABP, PAP, CO, CI - Last Documented Arterial Blood Pressure 143/42 - Labs CBC & Chem 7: 04/13/23 05:50 04/13/23 05:49 Labs: Abnormal Lab Results - Last 24 Hours (Table) 04/12/23 04/12/23 04/13/23 Range/Units 16:31 21:45 04:41 WBC (3.8-10.6) k/uL RBC (3.80-5.40) m/uL Hgb (11.4-16.0) gm/dL Hct (34.0-46.0) % MCV (80.0-100.0) fL MCHC (31.0-37.0) g/dL RDW (11.5-15.5) % Neutrophils # (1.3-7.7) k/uL Chloride (98-107) mmol/L Carbon Dioxide (22-30) mmol/L BUN (7-17) mg/dL Glucose (74-99) mg/dL POC Glucose (mg/dL) 155 H 166 H 196 H (70-110) mg/dL Calcium (8.4-10.2) mg/dL 04/13/23 04/13/23 04/13/23 Range/Units 05:49 05:50 11:28 WBC 13.7 H (3.8-10.6) k/uL RBC 3.21 L (3.80-5.40) m/uL Hgb 10.4 L (11.4-16.0) gm/dL Hct 33.5 L (34.0-46.0) % MCV 104.4 H (80.0-100.0) fL MCHC 30.9 L (31.0-37.0) g/dL RDW 16.1 H (11.5-15.5) % Neutrophils # 11.5 H (1.3-7.7) k/uL Chloride 117 H (98-107) mmol/L Carbon Dioxide 19 L (22-30) mmol/L BUN 19 H (7-17) mg/dL Glucose 160 H (74-99) mg/dL POC Glucose (mg/dL) 159 H (70-110) mg/dL Calcium 8.1 L (8.4-10.2) mg/dL
--- NOTE | 2023-04-13 14:40 | P.PN ---
Subjective Progress Note Date: 04/12/23 Principal diagnosis: Sepsis/pneumonia Patient is a 73-year-old female electively admitted to the hospital 03/21/2023 and this patient who is s/p extensive thoracolumbar spine surgery in this patient who is status post L2-L5 deformity correction did have a L2-S1 interbody fusion and T10-L2 posterior lateral instrumented fusion,patient did have postoperative CSF leak status post complex T10 posterior decompression fusion with dural repair postoperatively the patient did have a respiratory distress requiring intubation and admission to the ICU.Patient did have CT humera ogram of the chest that was negative for PE did shows multifocal groundglass opacities, CT abdomen and pelvis was consistent with ileus and no evidence of perforation On today's evaluation that is 04/12/2023, the patient continues to be afebrile, the patient is breathing comfortably on 2 L nasal cannula oxygen, the patient denied any chest pain, no nausea no vomiting no abdominal pain patient did have significant diarrhea requiring placement of fecal management system store for C. diff is negative Patient white count normal at 10.1, hemoglobin is 9.7, the patient creatinine is 0.50 Objective - Vital Signs Vital signs: Vital Signs Temp 97.9 F 04/12/23 12:00 Pulse 72 04/12/23 12:00 Resp 26 H 04/12/23 12:00 BP 130/80 04/12/23 12:00 Pulse Ox 94 L 04/12/23 12:00 FiO2 40 04/08/23 08:02 Intake & Output 04/11/23 04/12/23 04/12/23 18:59 06:59 18:59 Intake Total 720.941 60 60 Output Total 1680 550 230 Balance -959.059 -490 -170 Weight 88.1 kg Intake: IV 85 0.9NS 70 0.9NS Pressure Bag 15 Intake, IV Titration 15.941 Amount Insulin Regular 100 unit 15.941 In Sodium Chloride 0.9% 100 ml @ Per Protocol IV .Q0M [facility] Rx#:[id number] Tube Feeding 530 60 60 Other 90 Output: Urine 880 350 230 Stool 800 200 Other: Voiding Method Indwelling Catheter Indwelling Catheter ABP, PAP, CO, CI - Last Documented Arterial Blood Pressure 143/42 - Exam GENERAL DESCRIPTION: An elderly female lying in bed in no distress RESPIRATORY SYSTEM: Unlabored breathing , decreased breath sounds at bases HEART: S1 S2 regular rate and rhythm , ABDOMEN: Soft , no tenderness EXTREMITIES: Bilateral lower extremity swelling no redness - Labs CBC & Chem 7: 04/13/23 05:50 04/13/23 05:49 Labs: Abnormal Lab Results - Last 24 Hours (Table) 04/11/23 04/11/23 04/12/23 Range/Units 16:15 21:24 00:09 RBC (3.80-5.40) m/uL Hgb (11.4-16.0) gm/dL Hct (34.0-46.0) % MCV (80.0-100.0) fL RDW (11.5-15.5) % Neutrophils # (1.3-7.7) k/uL Chloride (98-107) mmol/L Carbon Dioxide (22-30) mmol/L BUN (7-17) mg/dL Creatinine (0.52-1.04) mg/dL Glucose (74-99) mg/dL POC Glucose (mg/dL) 152 H 168 H 176 H (70-110) mg/dL Calcium (8.4-10.2) mg/dL 04/12/23 04/12/23 04/12/23 Range/Units 03:28 03:28 04:36 RBC 2.90 L (3.80-5.40) m/uL Hgb 9.7 L (11.4-16.0) gm/dL Hct 30.0 L (34.0-46.0) % MCV 103.3 H (80.0-100.0) fL RDW 15.9 H (11.5-15.5) % Neutrophils # 8.0 H (1.3-7.7) k/uL Chloride 116 H (98-107) mmol/L Carbon Dioxide 20 L (22-30) mmol/L BUN 21 H (7-17) mg/dL Creatinine 0.50 L (0.52-1.04) mg/dL Glucose 194 H (74-99) mg/dL POC Glucose (mg/dL) 194 H (70-110) mg/dL Calcium 7.7 L (8.4-10.2) mg/dL 04/12/23 Range/Units 08:12 RBC (3.80-5.40) m/uL Hgb (11.4-16.0) gm/dL Hct (34.0-46.0) % MCV (80.0-100.0) fL RDW (11.5-15.5) % Neutrophils # (1.3-7.7) k/uL Chloride (98-107) mmol/L Carbon Dioxide (22-30) mmol/L BUN (7-17) mg/dL Creatinine (0.52-1.04) mg/dL Glucose (74-99) mg/dL POC Glucose (mg/dL) 167 H (70-110) mg/dL Calcium (8.4-10.2) mg/dL Assessment and Plan (1) Sepsis Current Visit: Yes Status: Acute Code(s): A41.9 - SEPSIS, UNSPECIFIED ORGANISM SNOMED Code(s): 96702911 (2) Gram-negative pneumonia Current Visit: Yes Status: Acute Code(s): J15.6 - PNEUMONIA DUE TO OTHER GRAM-NEGATIVE BACTERIA SNOMED Code(s): 671418468 (3) Leukocytosis Current Visit: Yes Status: Acute Code(s): D72.829 - ELEVATED WHITE BLOOD CELL COUNT, UNSPECIFIED SNOMED Code(s): 420256161 Plan: 1patient with a sepsis/septic shock in this patient with fever elevated white count hypertension tachycardia is source likely aspiration pneumonia likely gram-negative with a sputum currently growing Klebsiella and Enterobacter with some resistant pattern, patient subsequently did have a CT that heavy suspicious for ileus and concern for aspiration pneumonia 2-patient fever pattern has resolved and the patient white count has normalized 3Patient did have significant diarrhea, antibiotics were discontinued stool for C. diff is negative Imodium has been admitted will monitor closely Dictation was produced using [email or web address] dictation software. please excuse any grammatical, word or spelling errors. Time with Patient: Less than 30
--- NOTE | 2023-04-13 14:42 | P.PN ---
Subjective Progress Note Date: 04/13/23 Principal diagnosis: Sepsis/pneumonia Patient is a 73-year-old female electively admitted to the hospital 03/21/2023 and this patient who is s/p extensive thoracolumbar spine surgery in this patient who is status post L2-L5 deformity correction did have a L2-S1 interbody fusion and T10-L2 posterior lateral instrumented fusion,patient did have postoperative CSF leak status post complex T10 posterior decompression fusion with dural repair postoperatively the patient did have a respiratory distress requiring intubation and admission to the ICU.Patient did have CT humera ogram of the chest that was negative for PE did shows multifocal groundglass opacities, CT abdomen and pelvis was consistent with ileus and no evidence of perforation On today's evaluation that is 04/13/2023, the patient remains to be afebrile, the patient is breathing comfortably on room air, the patient denies any chest pain shortness of breath or cough, no nausea no vomiting no abdominal pain , the patient still have diarrhea requiring placement of fecal management system store for C. diff is negative Patient white count is slightly elevated at 13.7 today, hemoglobin is 10.4 and creatinine 0.53 Objective - Vital Signs Vital signs: Vital Signs Temp 97.5 F L 04/13/23 12:00 Pulse 66 04/13/23 12:00 Resp 18 04/13/23 12:00 BP 136/61 04/13/23 12:00 Pulse Ox 95 04/13/23 12:00 FiO2 40 04/08/23 08:02 Intake & Output 04/12/23 04/13/23 04/13/23 18:59 06:59 18:59 Intake Total 600 600 120 Output Total 850 825 220 Balance -250 -225 -100 Intake: Oral 120 Tube Feeding 540 540 Other 60 60 Output: Urine 650 625 220 Stool 200 200 Other: Voiding Method Indwelling Catheter Indwelling Catheter Indwelling Catheter ABP, PAP, CO, CI - Last Documented Arterial Blood Pressure 143/42 - Exam GENERAL DESCRIPTION: An elderly female up in the chair in no distress RESPIRATORY SYSTEM: Unlabored breathing , decreased breath sounds at bases HEART: S1 S2 regular rate and rhythm , ABDOMEN: Soft , no tenderness EXTREMITIES: Bilateral lower extremity swelling no redness - Labs CBC & Chem 7: 04/13/23 05:50 04/13/23 05:49 Labs: Abnormal Lab Results - Last 24 Hours (Table) 04/12/23 04/12/23 04/13/23 Range/Units 16:31 21:45 04:41 WBC (3.8-10.6) k/uL RBC (3.80-5.40) m/uL Hgb (11.4-16.0) gm/dL Hct (34.0-46.0) % MCV (80.0-100.0) fL MCHC (31.0-37.0) g/dL RDW (11.5-15.5) % Neutrophils # (1.3-7.7) k/uL Chloride (98-107) mmol/L Carbon Dioxide (22-30) mmol/L BUN (7-17) mg/dL Glucose (74-99) mg/dL POC Glucose (mg/dL) 155 H 166 H 196 H (70-110) mg/dL Calcium (8.4-10.2) mg/dL 04/13/23 04/13/23 04/13/23 Range/Units 05:49 05:50 11:28 WBC 13.7 H (3.8-10.6) k/uL RBC 3.21 L (3.80-5.40) m/uL Hgb 10.4 L (11.4-16.0) gm/dL Hct 33.5 L (34.0-46.0) % MCV 104.4 H (80.0-100.0) fL MCHC 30.9 L (31.0-37.0) g/dL RDW 16.1 H (11.5-15.5) % Neutrophils # 11.5 H (1.3-7.7) k/uL Chloride 117 H (98-107) mmol/L Carbon Dioxide 19 L (22-30) mmol/L BUN 19 H (7-17) mg/dL Glucose 160 H (74-99) mg/dL POC Glucose (mg/dL) 159 H (70-110) mg/dL Calcium 8.1 L (8.4-10.2) mg/dL Assessment and Plan (1) Sepsis Current Visit: Yes Status: Acute Code(s): A41.9 - SEPSIS, UNSPECIFIED ORGANISM SNOMED Code(s): 81770168 (2) Gram-negative pneumonia Current Visit: Yes Status: Acute Code(s): J15.6 - PNEUMONIA DUE TO OTHER GRAM-NEGATIVE BACTERIA SNOMED Code(s): 701350997 (3) Leukocytosis Current Visit: Yes Status: Acute Code(s): D72.829 - ELEVATED WHITE BLOOD CELL COUNT, UNSPECIFIED SNOMED Code(s): 012543309 Plan: 1patient with a sepsis/septic shock in this patient with fever elevated white count hypertension tachycardia is source likely aspiration pneumonia likely gram-negative with a sputum currently growing Klebsiella and Enterobacter with some resistant pattern, patient subsequently did have a CT that heavy suspicious for ileus and concern for aspiration pneumonia 2-patient fever pattern has resolved and the patient white count has normalized 3Patient did have significant diarrhea, antibiotics were discontinued stool for C. diff is negative, patient did have mildly elevated white count today of 13.7 that'll be monitored closely and continue supportive care Dictation was produced using [employer] dictation software. please excuse any grammatical, word or spelling errors. Time with Patient: Less than 30
--- NOTE | 2023-04-13 16:50 | CT ---
EXAMINATION TYPE: CT brain wo con DATE OF EXAM: 04/13/2023 COMPARISON: 02/21/2023 INDICATION: weakness DLP: 1118.4 mGycm, Automated exposure control for dose reduction was used. CONTRAST: None CT of the brain is performed utilizing 3 mm thick sections through the posterior fossa and 3 mm thick sections through the remaining calvarium. Study is performed within 24 hours of arrival to the hosp [facility]. No abnormal hyperdensity is present to suggest an acute intracranial hemorrhage. No mass lesion is evident. No acute infarcts are evident. Ventricles and sulci are prominent for the patient age. There is debris within the sphenoid sinus. Remaining paranasal sinuses visualized are clear. Correlat e for acute sphenoid sinusitis. IMPRESSIONS: 1. No acute intracranial process. Follow-up MRI can be performed as clinically indicated. 2. Atrophy. 3. Clinical consideration for acute sphenoid sinusitis
[2023-04-13] MEDS: RIVAROXABAN 20 MG TAB PO SCH (17:15)
[2023-04-13 17:25] LABS: Glucose,Whole Blood 104 mg/dL (70-110)
[2023-04-13] MEDS: SODIUM BICARBONATE TAB 650 MG TAB PO SCH (20:19)
[2023-04-13 20:36] LABS: Glucose,Whole Blood 137 mg/dL (70-110)
[2023-04-13 23:56] LABS: Glucose,Whole Blood 147 mg/dL (70-110)
[2023-04-14 04:10] LABS: Glucose,Whole Blood 147 mg/dL (70-110)
[2023-04-14] MEDS: INSULIN ASPART (NovoLOG) 100 UNIT/ML VIAL SQ SCH ×5 (04:16→20:18)
[2023-04-14 06:07] LABS: Glucose,Whole Blood 126 mg/dL (70-110)
[2023-04-14 06:34] LABS: African American GFR (CKD) >90 (>60 ml/min/1.73 sqM); Anion Gap 7 mmol/L; Blood Urea Nitrogen 16 mg/dL (7-17); Calcium 8.2 mg/dL (8.4-10.2); Carbon Dioxide 19 mmol/L (22-30); Chloride 117 mmol/L (98-107); Glucose 137 mg/dL (74-99); Non-African American GFR(CKD) >90 (>60 ml/min/1.73 sqM); Potassium 4.4 mmol/L (3.5-5.1); Sodium 143 mmol/L (137-145)
[2023-04-14] MEDS: CHLORHEXIDINE GLUCONATE 15 ML CUP MUCOUS MEM SCH (07:40)
[2023-04-14] MEDS: LACTATED RINGERS 1,000 ML IV SCH (07:42)
[2023-04-14] MEDS: FUROSEMIDE 10 MG/ML 4 ML VIAL IV SCH (07:42)
[2023-04-14] MEDS: polyethylene glycoL 3350 17 GM POWD.PACK PO SCH (07:42)
[2023-04-14 08:43] LABS: Glucose,Whole Blood 136 mg/dL (70-110)
[2023-04-14] MEDS: lisinopriL 20 MG TAB PO SCH (08:51)
[2023-04-14] MEDS: METOPROLOL TARTRATE 25 MG TAB PO SCH ×2 (08:51→20:48)
[2023-04-14] MEDS: GABAPENTIN 100 MG CAP PO SCH ×3 (08:51→20:48)
[2023-04-14] MEDS: SODIUM BICARBONATE TAB 650 MG TAB PO SCH ×2 (08:51→20:48)
[2023-04-14] MEDS: PANTOPRAZOLE 40 MG/10 ML VIAL IV SCH (08:51)
[2023-04-14] MEDS: AMIODARONE 200 MG TAB PO SCH ×2 (08:51→20:48)
[2023-04-14] MEDS ORDERED: traMADol 50 MG TAB PO PRN (09:03)
--- NOTE | 2023-04-14 09:06 | P.PN ---
Subjective Progress Note Date: 04/14/23 Principal diagnosis: 1. L1-S1 spondylosis with stenosis 2. L1-S1 spondylolisthesis 3. Lower extremity radiculopathy 4. Low back pain 5. Lower extremity weakness Patient seen and examined this morning. Patient is awake and resting comfortably in bed. Patient is continues with difficulty speaking, she is whispering at this time with some delay in response time, this is improving. She does state that her back is hurting this morning. Patient is able to move upper and lower extremities. PT was able to work with patient minimally yesterday. Patient is resistant to stand. Patient needs to be in chair today and if not able to stand and pivot, patient will need to be moved to a room with a chao lift. Please reposition patient q 2 hours to prevent pressure to incision of the lumbar region. Surgical dressing is CDI. Liquid bowel movements continue, fecal management system in place and patent. SCDs are present to lower extremities. Continue with PT and speech therapies. Objective - Vital Signs Vital signs: Vital Signs Temp 97.4 F L 04/14/23 04:10 Pulse 64 04/14/23 04:10 Resp 17 04/14/23 04:10 BP 127/59 04/14/23 04:10 Pulse Ox 97 04/14/23 04:10 FiO2 40 04/08/23 08:02 Intake & Output 04/13/23 04/14/23 04/14/23 18:59 06:59 18:59 Intake Total 238 Output Total 220 500 Balance 18 -500 Weight 88.1 kg Intake: Oral 238 Output: Urine 220 500 Other: Voiding Method Indwelling Catheter Indwelling Catheter ABP, PAP, CO, CI - Last Documented Arterial Blood Pressure 143/42 - Exam Physical Examination General: The patient is awake and alert, in no acute distress Skin: Skin is warm and dry with no obvious rashes or lesions. There is +1 generalized edema in bilateral upper and lower extremities. Surgical dressing to the thoracolumbar region has been changed this morning. Incision is well approximated with sutures and trinh. No active drainage noted. Eye: Pupils are equal, round and reactive to light, extra-ocular movements are intact; there is normal conjunctiva bilaterally. Neck: The neck is supple, there is no tenderness and ROM intact. Cardiovascular: There is a regular rate and rhythm. No murmur, rub or gallop is appreciated. Gastrointestinal: Soft, non-distended, non-tender abdomen. She continues with loose stools, fecal management system is in place. Back: There is no tenderness to palpation in the midline, paralumbar, parathoracic or buttocks region. There is no obvious deformity . Musculoskeletal: ROM limited secondary to weakness. Muscle strength in bilateral upper extremities 4-/5, right lower extremity 3+/5, left lower extremity 3/5. Neurological: Negative Hoffmans, babinski, and clonus signs. Psychiatric: Cooperative, appropriate mood & affect. - Labs CBC & Chem 7: 04/13/23 05:50 04/14/23 05:57 Labs: Abnormal Lab Results - Last 24 Hours (Table) 04/13/23 04/13/23 04/13/23 Range/Units 11:28 20:34 23:55 Chloride (98-107) mmol/L Carbon Dioxide (22-30) mmol/L Glucose (74-99) mg/dL POC Glucose (mg/dL) 159 H 137 H 147 H (70-110) mg/dL Calcium (8.4-10.2) mg/dL 04/14/23 04/14/23 04/14/23 Range/Units 04:07 05:57 06:02 Chloride 117 H (98-107) mmol/L Carbon Dioxide 19 L (22-30) mmol/L Glucose 137 H (74-99) mg/dL POC Glucose (mg/dL) 147 H 126 H (70-110) mg/dL Calcium 8.2 L (8.4-10.2) mg/dL Assessment and Plan Assessment: Postop Day 16: Irrigation and Debridement with revision dural repair lumbar spine ; Postop Day 24: [id number] decompression and fusion 1. Aspiration Pneumonia 2. Post-op Ileus 3. Post-op anemia-resolved 4. L1-S1 spondylosis with stenosis 5. L1-S1 spondylolisthesis 6. Lower extremity radiculopathy 7. Low back pain 8. Lower extremity weakness Plan: -Appreciate wig sales consultant and team management. -Activity: Continue to sit patient up and mobilize her upper and lower extremities. -Pain control: Order placed for Tramadol as needed. -Meds: reviewed -GI ppx: protonix, imodium -DVT PPX: SCDs and TEDS -Hygiene: Maintain dressing clean and dry. Meticulous cleaning after BMs away from the incision site -Dispo: Discharge to [facility] when medically stable. Patient is cleared from Orthopedic standpoint for discharge. *I reviewed and discussed this case with my attending Dr. Duong, whom has reviewed this chart and films and is in agreement with assessment and plan of care as outlined above. I have personally seen and examined the patient, performed the documentation and the assessment and plan as written. Number of minutes spent on the visit: 20m.
[2023-04-14] MEDS: HYDROmorphone 0.5 MG/0.5 ML SYRINGE IVP PRN ×2 (09:08→15:28)
--- NOTE | 2023-04-14 10:41 | P.PN ---
Subjective Progress Note Date: 04/14/23 CHIEF COMPLAINT: Back pain HISTORY OF PRESENT ILLNESS: Patient transferred out of the ICU yesterday. She has been having bowel movements with FMS in place. No abdominal pain reported. She is tolerating ground diet. She's scheduled for a modified barium swallow study today. PHYSICAL EXAM: VITAL SIGNS: Reviewed. GENERAL: Well-developed in no acute distress. ABDOMEN: Soft nondistended. Nontender ASSESSMENT: 1. Postop ileus resolved 2. Status post T10 to pelvis decompression with fusion with drainage from surgical site status post irrigation and debridement 3. Possible aspiration pneumonia PLAN: -Diet advancement per speech therapy. Currently on dysphagia ground diet with honey thickened liquids. -Continue supportive care Physician Core Fitter note has been reviewed by physician. Signing provider agrees with the documented findings, assessment, and plan of care. Objective - Vital Signs Vital signs: Vital Signs Temp 98.1 F 04/14/23 08:47 Pulse 71 04/14/23 08:47 Resp 17 04/14/23 08:47 BP 145/78 04/14/23 08:47 Pulse Ox 99 04/14/23 08:47 FiO2 40 04/08/23 08:02 Intake & Output 04/13/23 04/14/23 04/14/23 18:59 06:59 18:59 Intake Total 238 200 Output Total 220 500 375 Balance 18 -500 -175 Weight 88.1 kg Intake: Oral 238 200 Output: Urine 220 500 275 Stool 100 Other: Voiding Method Indwelling Catheter Indwelling Catheter Indwelling Catheter ABP, PAP, CO, CI - Last Documented Arterial Blood Pressure 143/42 - Labs CBC & Chem 7: 04/13/23 05:50 04/14/23 05:57 Labs: Abnormal Lab Results - Last 24 Hours (Table) 04/13/23 04/13/23 04/13/23 Range/Units 11:28 20:34 23:55 Chloride (98-107) mmol/L Carbon Dioxide (22-30) mmol/L Glucose (74-99) mg/dL POC Glucose (mg/dL) 159 H 137 H 147 H (70-110) mg/dL Calcium (8.4-10.2) mg/dL 04/14/23 04/14/23 04/14/23 Range/Units 04:07 05:57 06:02 Chloride 117 H (98-107) mmol/L Carbon Dioxide 19 L (22-30) mmol/L Glucose 137 H (74-99) mg/dL POC Glucose (mg/dL) 147 H 126 H (70-110) mg/dL Calcium 8.2 L (8.4-10.2) mg/dL 04/14/23 Range/Units 08:41 Chloride (98-107) mmol/L Carbon Dioxide (22-30) mmol/L Glucose (74-99) mg/dL POC Glucose (mg/dL) 136 H (70-110) mg/dL Calcium (8.4-10.2) mg/dL
--- NOTE | 2023-04-14 11:07 | FL ---
EXAMINATION TYPE: FL barium swallow w video DATE OF EXAM: 04/14/2023 CLINICAL HISTORY: 73-year-old female trouble eating and swallowing, and honey thickened consistency, rule out aspiration. Patient with 10 days of intubation. TECHNIQUE: Deglutition study is performed utilizing thin liquid barium, barium thick applesauce, and barium coated cracker. Total fluoroscopy time: 43 seconds DOSE AREA PRODUCT (DAP) UGY*M,MGY*CM: 1.43 Total images: 64 images save screens. Real-time fluoroscopy support was provided to speech pathology. COMPARISON: None. FINDINGS: The oral and pharyngeal phases show satisfactory initiation and propagation with all modalities teste d. Normal mastication is seen with solid modalities tested. There is no evidence of penetration or aspiration with any modality tested. No significant pharyngeal residue was appreciated. IMPRESSION: Normal deglutition study. Please refer to speech therapist notes for further details if necessary.
--- NOTE | 2023-04-14 11:33 | P.PN ---
Subjective Progress Note Date: 04/14/23 04/09/2023, the patient is extubated on oxygen at 2 L/m nasal cannula. Profoundly weak, still lethargic, follows simple commands and unable to move her arms, she is able to wiggle her toes and she does have facial expression in response to questions. No signs of any respiratory distress. Chest x-ray is showing stable but the pulmonary infiltrates post-ARDS. She does have a cough and a gag. NG tube was kept in place and the patient started having diarrhea as of yesterday. The fecal management system was inserted and the patient has produced approximately 300 mL of stool since yesterday. We'll check stool for C. diff. At the same time, she is running higher blood pressure post extubation. The patient was started on Cleviprex dripp and this was discontinued this morning. The patientis running higher blood pressure. She did have few episodes of atrial fibrillation overnight and currently her rhythm is back to sinus.she remains on TPN for nutritional support pH remains on IV steroids. She remains on an insulin drip currently running at 10 units an hour. She continues to diabetes. She has another negative fluid balance of at least 2 L over the past 24 hours. The white cell count is at 12.4, hemoglobin is at 9.8. BUN is 33 with a creatinine of 0.6 and a sodium level is at 143 with a potassium level of 4.1. The patient is on IV Zosyn that was started on 04/03/2023 and the patient has nearly completed her course. 04/10/2023, patient remains in the ICU, remains extubated, she is on 2 L nasal cannula, requiring insulin drip at 9 units per hour, she is also on TPN, 45 mL per hour. Continues to have a nasogastric tube in place, and she is receiving trickle feedings, 10 mL per hour. Patient remains on Zosyn, continues to have difficulty with swallowing and with her speech, patient is to have speech and swallow evaluation today. Continues to have upper extremities weakness, not in any form of respiratory distress. She does have a cough reflex and a gag reflex. C. difficile screening was negative WBC count today is 8.5 hemoglobin is 9.8, basic metabolic profile is normal with normal electrolytes and normal renal profile. Fecal management system remains in place. Physical therapy is continued performing range of motion exercises for her extremities and joints. Patient is marginal at best. Patient was reevaluated 04/11/2023, remains in the ICU, basically about the same, she is on 2 L nasal cannula, does not seem to be in any distress, very by lysing better today at patient could say hello without any difficulty. Tends not to speak unless asked to do so. Otherwise she is using facial expressions. And using her hands. Patient remained generally weak, nonetheless she is able to move her upper and lower extremities. Continues to be followed by physical therapy and speech therapy. WBC count today is 10.7 hemoglobin is 9.6. Basic metabolic profile is normal. Chest x-ray showed minimal pulmonary vascular congestion and atelectasis especially at the left base. reevaluated today on 04/12/2023 patient may is in the ICU as an overflow. She is very comfortable, not in any distress, patient is on room air, still receiving enteral feeding at 60 ML per hour, chest x-ray showing more left basilar atelectasis, patient is doing well with incentive spirometry, continues to have significant amount of diarrhea. Hence Imodium was added today. She was supposed to have another swallow evaluation today, and possibly decide on removing the nasogastric tube if the patient passes the swallow evaluation. Remained generally weak especially in upper and lower extremities. Continues to have a central line in the right IJ area, this will be removed today since at peripheral IV access was established. Labs today showed a relatively normal CBC, normal electrolytes, normal renal profile. Reevaluated today on 04/13/2023, remains in the ICU as an overflow. Patient is doing well overall, she is getting a bit stronger nonetheless remained generally weak. Patient is able to swallow, she passed a swallow evaluation, and now she is being fed, and her nasogastric tube has been removed. Patient is still having diarrhea, and she remains on Imodium. Undergoing physical therapy and range of motion therapy, patient will need a detention course of tr eatment/physical therapy, and eventually she needs to be considered for rehab in [place]. CBC today is basically unremarkable a bit of leukocytosis noted WBC count of 15.7 and electrolytes are normal renal profile is normal, blood sugar is 159 The patient is seen today 04/14/2023 in follow-up on the selective care unit. She was transferred out of the intensive care unit yesterday. She is sitting up in bed. More awake and alert today. She is maintaining O2 saturations in the 90s on room air. She has a dry nonproductive cough. She remains afebrile. Hemodynamically stable. Computed tomography scan of the brain revealed no acute intracranial process. Barium swallow today revealed normal deglutition study. Sodium 143. Potassium 4.4. Bicarb 19. BUN 16. Creatinine 0.54. Glucose 137. She remains on bronchodilators. Encouraged increased use of the incentive spirometer. Anticoagulated with Xarelto. Completed antibiotics. Objective - Vital Signs Vital signs: Vital Signs Temp 98.1 F 04/14/23 08:47 Pulse 71 04/14/23 08:47 Resp 17 04/14/23 08:47 BP 145/78 04/14/23 08:47 Pulse Ox 99 04/14/23 08:47 FiO2 40 04/08/23 08:02 Intake & Output 04/13/23 04/14/23 04/14/23 18:59 06:59 18:59 Intake Total 238 200 Output Total 220 500 375 Balance 18 -500 -175 Weight 88.1 kg Intake: Oral 238 200 Output: Urine 220 500 275 Stool 100 Other: Voiding Method Indwelling Catheter Indwelling Catheter Indwelling Catheter ABP, PAP, CO, CI - Last Documented Arterial Blood Pressure 143/42 - Exam GENERAL EXAM: Alert, pleasant 73-year-old female, on room air, comfortable in no apparent distress. HEAD: Normocephalic. EYES: Normal reaction of pupils, equal size. NOSE: Clear with pink turbinates. THROAT: No erythema or exudates. NECK: No masses, no JVD. CHEST: No chest wall deformity. LUNGS: Equal air entry with no crackles, wheeze, rhonchi or dullness. CVS: S1 and S2 normal with no audible murmur, regular rhythm. ABDOMEN: No hepatosplenomegaly, normal bowel sounds, no guarding or rigidity. SPINE: No scoliosis or deformity SKIN: No rashes CENTRAL NERVOUS SYSTEM: Generalized weakness. No focal deficits, tone is normal in all 4 extremities. EXTREMITIES: There is no peripheral edema. No clubbing, no cyanosis. Peripheral pulses are intact. - Labs CBC & Chem 7: 04/13/23 05:50 04/14/23 05:57 Labs: Abnormal Lab Results - Last 24 Hours (Table) 04/13/23 04/13/23 04/13/23 Range/Units 11:28 20:34 23:55 Chloride (98-107) mmol/L Carbon Dioxide (22-30) mmol/L Glucose (74-99) mg/dL POC Glucose (mg/dL) 159 H 137 H 147 H (70-110) mg/dL Calcium (8.4-10.2) mg/dL 04/14/23 04/14/23 04/14/23 Range/Units 04:07 05:57 06:02 Chloride 117 H (98-107) mmol/L Carbon Dioxide 19 L (22-30) mmol/L Glucose 137 H (74-99) mg/dL POC Glucose (mg/dL) 147 H 126 H (70-110) mg/dL Calcium 8.2 L (8.4-10.2) mg/dL 04/14/23 Range/Units 08:41 Chloride (98-107) mmol/L Carbon Dioxide (22-30) mmol/L Glucose (74-99) mg/dL POC Glucose (mg/dL) 136 H (70-110) mg/dL Calcium (8.4-10.2) mg/dL Assessment and Plan Assessment: Lumbar spondylosis and spondylolisthesisPostop Day 16: Irrigation and Debridement with revision dural repair lumbar spine ; Postop Day 24: [id number] decompression and fusion Acute hypoxic respiratory failure, this was subsequent to repair of a dural tear and secondary to large volume gastric aspiration requiring intubation and mechanical ventilation. Patient was extubated on 04/09/2023, continues to tolerate the extubation. 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 Number of minutes spent on the visit: 10.
[2023-04-14 12:11] LABS: Glucose,Whole Blood 140 mg/dL (70-110)
--- NOTE | 2023-04-14 13:33 | P.PN ---
Subjective Progress Note Date: 04/14/23 Hospital Course: Patient is a 72-year-old female with dyslipidemia, hypertension, non-insulin- dependent diabetes mellitus type 2 who presented for elective T10 to pelvis decompression and fusion. We were consulted for medical management. She underwent successful decompression and fusion on 03/21, however, her postoperative hospital course was complicated by positional headache suspicious for CSF leak. Subsequently, she was taken back to the operating room on 03/29 for CSF repair. During intubation, patient was noted to have significant amounts of the aspirate emesis and oropharynx and after intubation she was noted to have 1.2 L of gastric output from OG tube. During the procedure she had increasing FiO2 requirements. Postoperatively she became hypotensive down to the 70s/30s and hypoxia down to the mid 60s despite FiO2 of 100% and PEEP of 12. She was transferred to the ICU and started on the Levophed. Differential diagnosis of septic shock secondary to meningitis versus aspiration pneumonia as well as hypovolemic shock secondary to CSF volume loss were considered. She was administered 3L of lactated Ringer's. Chest x-ray postoperatively on 03/29 demonstrated diffuse pulmonary edema with concern for ARDS superimposed on aspiration. Empiric antibiotics were started with vancomycin, ceftriaxone, Unasynfor empiric coverage of both meningitis and aspiration pneumonia/ Infectious disease was consulted. Sputum culture was positive for Klebsiella and Enterobacter with variable resistance. Pro-calcitonin was elevated at 6.7. Her CVP was monitored and remained stable between 13 and 15. Echocardiogram showed EF 60-65%, mild TR, and moderate pulmonary hypertension. Patient was noted to not have a bowel movement in approximately 5 days as of 03/29 and Gen. s winnie was consulted for ileus. She developed sepsis induced atrial fibrillation with RVR, was started on amiodarone drip and converted back to normal sinus rhythm. She is placed on metoprolol once her pressor requirements started to decrease on 04/01, however, this was held after pressor requirements increased again on 04/03. Discussed with orthopedic surgery that no anticoagulation will be given for atrial fibrillation during the critical phase, but can be initiated once patient is able to be transitioned to the floor. She did require nimbex which was successfully stopped on 04/03/23, she was given relistor on 04/03/23 and started having bowel movements. She was able to come off levo on 04/04/23. After patient was weaned off of vasopressor agents she did have some episodes of hypertension requiring a cleft pain drip as she was unable to tolerate oral feedings. Patient continued to have bowel movements and tube feeds were started at trickle. She was successfully extubated on 04/08/23. She required a fecal management system, and her reglan was stopped. Mental status improved. NG tube is out, patient started oral intake. Slowly advancing diet, working on feeding. Subjective: Patient seen and examined at bedside. No acute events overnight. mental status and weakness is improved. Rectal tube and Garnett catheter still in place. Pertinent positives and negatives as discussed above, a complete review of systems was performed and all other systems are negative. Vitals Signs Reviewed. General: nontoxic, no distress, appears at stated age Cardiovascular: S1S2 reg, no murmur, positive posterior tibial pulse bilateral, Lungs: Coarse breath sounds bilateral, no rhonchi, no rales , no accessory muscle use Abdominal: soft, nontender to palpation, no guarding, no appreciable organomegaly Ext: no gross muscle atrophy, Anasarca , no contractures Neuro: moving all extremities Psych: Awake, alert and oriented x2 Data Reviewed Today: Pertinent Labs: Bicarb 19, creatinine 0.54, blood sugars range between 126-147 Imaging: No new imaging Assessment and Plan: Multi-focal pneumonia,due to Klebsiella and Enterobacter complicated by septic shock, no longer on pressors Ventilator Dependent Acute Hypoxemic and Hypercarbic Respiratory Failure, ARDS, now on nasal cannula Postoperative ileus, resolved now with diarrhea Toxic metabolic encepahlopathy , possible hypoactive delirium, resolving Profound weakness, possibly critical illness myopathy - Pulm following, continue current treatment - Surgery following, advance diet per speech therapy -Completed a course of IV Zosyn - ID following -Diarrhea slowly resolving, has had a rectal tube in place, on loperamide Sepsis induced atrial fibrillation with RVR, paroxysmal Hypertension - Lisinopril 40 mg, continue lopressor 25 mg twice daily - Amiodarone 200 mg oral twice daily - Xarelto 20 mg daily Status post T10 to pelvis decompression with fusion s/p CSF repair on 03/29 -Personally discussed management with orthopedic, patient is stable for discharge from their standpoint Acute blood loss anemia, stable - s/p 3 unit pRBC - Anticipated outcome of surgery/prolonged ICU stay Diabetes mellitus type 2 -Hold metformin -Before meals at bedtime sliding scale -Follow blood sugars Dyslipidemia -Gemfibrozil Metabolic acidosis, likely related diarrhea -oral bicarb DVT ppx: Xarelto Code status: Full code Anticipated discharge place: [facility] Anticipated discharge time: Pending clinical course, working on feeding Objective - Vital Signs Vital signs: Vital Signs Temp 97.6 F 04/14/23 12:17 Pulse 61 04/14/23 12:17 Resp 17 04/14/23 12:17 BP 121/76 04/14/23 12:17 Pulse Ox 97 04/14/23 12:17 FiO2 40 04/08/23 08:02 Intake & Output 04/13/23 04/14/23 04/14/23 18:59 06:59 18:59 Intake Total 238 600 Output Total 220 500 650 Balance 18 -500 -50 Weight 88.1 kg Intake: Oral 238 600 Output: Urine 220 500 450 Stool 200 Other: Voiding Method Indwelling Catheter Indwelling Catheter Indwelling Catheter ABP, PAP, CO, CI - Last Documented Arterial Blood Pressure 143/42 - Labs CBC & Chem 7: 04/13/23 05:50 04/14/23 05:57 Labs: Abnormal Lab Results - Last 24 Hours (Table) 04/13/23 04/13/23 04/14/23 Range/Units 20:34 23:55 04:07 Chloride (98-107) mmol/L Carbon Dioxide (22-30) mmol/L Glucose (74-99) mg/dL POC Glucose (mg/dL) 137 H 147 H 147 H (70-110) mg/dL Calcium (8.4-10.2) mg/dL 04/14/23 04/14/23 04/14/23 Range/Units 05:57 06:02 08:41 Chloride 117 H (98-107) mmol/L Carbon Dioxide 19 L (22-30) mmol/L Glucose 137 H (74-99) mg/dL POC Glucose (mg/dL) 126 H 136 H (70-110) mg/dL Calcium 8.2 L (8.4-10.2) mg/dL 04/14/23 Range/Units 12:09 Chloride (98-107) mmol/L Carbon Dioxide (22-30) mmol/L Glucose (74-99) mg/dL POC Glucose (mg/dL) 140 H (70-110) mg/dL Calcium (8.4-10.2) mg/dL
--- NOTE | 2023-04-14 16:05 | P.PN ---
Subjective Progress Note Date: 04/14/23 Principal diagnosis: Sepsis/pneumonia Patient is a 73-year-old female electively admitted to the hospital 03/21/2023 and this patient who is s/p extensive thoracolumbar spine surgery in this patient who is status post L2-L5 deformity correction did have a L2-S1 interbody fusion and T10-L2 posterior lateral instrumented fusion,patient did have postoperative CSF leak status post complex T10 posterior decompression fusion with dural repair postoperatively the patient did have a respiratory distress requiring intubation and admission to the ICU.Patient did have CT humera ogram of the chest that was negative for PE did shows multifocal groundglass opacities, CT abdomen and pelvis was consistent with ileus and no evidence of perforation On today's evaluation that is 04/14/2023, the patient continues to be afebrile, the patient is breathing comfortably on room air and the patient has been transferred out of the ICU, the patient denies any chest pain shortness of carol ath or cough, no nausea no vomiting no abdominal pain , the patient still have diarrhea requiring placement of fecal management system however overall output has decreased Patient did not have a CBC drawn today, the patient did have a normal creatinine 0.54 Objective - Vital Signs Vital signs: Vital Signs Temp 98.1 F 04/14/23 08:47 Pulse 71 04/14/23 08:47 Resp 17 04/14/23 08:47 BP 145/78 04/14/23 08:47 Pulse Ox 99 04/14/23 08:47 FiO2 40 04/08/23 08:02 Intake & Output 04/13/23 04/14/23 04/14/23 18:59 06:59 18:59 Intake Total 238 200 Output Total 220 500 375 Balance 18 -500 -175 Weight 88.1 kg Intake: Oral 238 200 Output: Urine 220 500 275 Stool 100 Other: Voiding Method Indwelling Catheter Indwelling Catheter Indwelling Catheter ABP, PAP, CO, CI - Last Documented Arterial Blood Pressure 143/42 - Exam GENERAL DESCRIPTION: An elderly female up in the chair in no distress RESPIRATORY SYSTEM: Unlabored breathing , decreased breath sounds at bases HEART: S1 S2 regular rate and rhythm , ABDOMEN: Soft , no tenderness EXTREMITIES: Bilateral lower extremity swelling no redness - Labs CBC & Chem 7: 04/13/23 05:50 04/14/23 05:57 Labs: Abnormal Lab Results - Last 24 Hours (Table) 04/13/23 04/13/23 04/14/23 Range/Units 20:34 23:55 04:07 Chloride (98-107) mmol/L Carbon Dioxide (22-30) mmol/L Glucose (74-99) mg/dL POC Glucose (mg/dL) 137 H 147 H 147 H (70-110) mg/dL Calcium (8.4-10.2) mg/dL 04/14/23 04/14/23 04/14/23 Range/Units 05:57 06:02 08:41 Chloride 117 H (98-107) mmol/L Carbon Dioxide 19 L (22-30) mmol/L Glucose 137 H (74-99) mg/dL POC Glucose (mg/dL) 126 H 136 H (70-110) mg/dL Calcium 8.2 L (8.4-10.2) mg/dL 04/14/23 Range/Units 12:09 Chloride (98-107) mmol/L Carbon Dioxide (22-30) mmol/L Glucose (74-99) mg/dL POC Glucose (mg/dL) 140 H (70-110) mg/dL Calcium (8.4-10.2) mg/dL Assessment and Plan (1) Sepsis Current Visit: Yes Status: Acute Code(s): A41.9 - SEPSIS, UNSPECIFIED ORGANISM SNOMED Code(s): 32721429 (2) Gram-negative pneumonia Current Visit: Yes Status: Acute Code(s): J15.6 - PNEUMONIA DUE TO OTHER GRAM-NEGATIVE BACTERIA SNOMED Code(s): 360516766 (3) Leukocytosis Current Visit: Yes Status: Acute Code(s): D72.829 - ELEVATED WHITE BLOOD CELL COUNT, UNSPECIFIED SNOMED Code(s): 779798385 Plan: 1patient with a sepsis/septic shock in this patient with fever elevated white count hypertension tachycardia is source likely aspiration pneumonia likely gram-negative with a sputum currently growing Klebsiella and Enterobacter with some resistant pattern, patient subsequently did have a CT that heavy suspicious for ileus and concern for aspiration pneumonia that has been adequately treated 2-patient did have significant diarrhea, antibiotics were discontinued stool for C. diff is negative, patient did have mildly elevated white count yesterday of 13.7, we will repeat a CBC with a.m. lab and monitor her clinical course closely Dictation was produced using dragon dictation software. please excuse any grammatical, word or spelling errors. Time with Patient: Less than 30
[2023-04-14 16:43] LABS: Glucose,Whole Blood 140 mg/dL (70-110)
[2023-04-14] MEDS: RIVAROXABAN 20 MG TAB PO SCH (16:44)
[2023-04-14 20:17] LABS: Glucose,Whole Blood 128 mg/dL (70-110)
[2023-04-15 06:12] LABS: Glucose,Whole Blood 135 mg/dL (70-110)
[2023-04-15] MEDS: INSULIN ASPART (NovoLOG) 100 UNIT/ML VIAL SQ SCH ×4 (06:23→19:57)
[2023-04-15 07:57] LABS: ALT 60 U/L (4-34); AST 64 U/L (14-36); African American GFR (CKD) >90 (>60 ml/min/1.73 sqM); Albumin 2.7 g/dL (3.5-5.0); Alkaline Phosphatase 72 U/L (38-126); Anion Gap 10 mmol/L; Blood Urea Nitrogen 15 mg/dL (7-17); Carbon Dioxide 16 mmol/L (22-30); Chloride 112 mmol/L (98-107); Glucose 121 mg/dL (74-99); Non-African American GFR(CKD) >90 (>60 ml/min/1.73 sqM); Potassium 3.9 mmol/L (3.5-5.1); Sodium 138 mmol/L (137-145); Total Bilirubin 0.6 mg/dL (0.2-1.3); Total Protein 5.2 g/dL (6.3-8.2)
[2023-04-15 08:35] LABS: Basophils % (A) 0 %; Eosinophils # (A) 0.6 k/uL (0-0.7); Eosinophils % (A) 5 %; HGB 9.9 gm/dL (11.4-16.0); Hypochromasia Moderate; Lymphocytes # (A) 1.3 k/uL (1.0-4.8); Lymphocytes % (A) 11 %; MCH 32.2 pg (25.0-35.0); MCHC 30.9 g/dL (31.0-37.0); MCV 104.2 fL (80.0-100.0); Macrocytosis Moderate; Mean Platelet Volume 8.7; Monocytes # (A) 0.5 k/uL (0-1.0); Monocytes % (A) 4 %; Neutrophils # (A) 9.4 k/uL (1.3-7.7); Neutrophils % (A) 79 %; Platelet Count 278 k/uL (150-450); RBC 3.07 m/uL (3.80-5.40); WBC 11.9 k/uL (3.8-10.6)
[2023-04-15] MEDS: PANTOPRAZOLE 40 MG/10 ML VIAL IV SCH (08:42)
[2023-04-15] MEDS: AMIODARONE 200 MG TAB PO SCH ×2 (08:43→20:03)
[2023-04-15] MEDS: lisinopriL 20 MG TAB PO SCH (08:43)
[2023-04-15] MEDS: SODIUM BICARBONATE TAB 650 MG TAB PO SCH ×3 (08:43→20:03)
[2023-04-15] MEDS: GABAPENTIN 100 MG CAP PO SCH ×3 (08:43→20:03)
[2023-04-15] MEDS: METOPROLOL TARTRATE 25 MG TAB PO SCH ×2 (08:43→20:03)
--- NOTE | 2023-04-15 09:43 | P.PN ---
Subjective Progress Note Date: 04/15/23 Principal diagnosis: Ileus Patient doing well today. Denies abdominal pain. White blood cell count 11.9, hemoglobin 9.9. Tolerating diet. Fecal management system remains in place but there are orders for removal. Objective - Vital Signs Vital signs: Vital Signs Temp 98.1 F 04/15/23 08:40 Pulse 69 04/15/23 08:40 Resp 16 04/15/23 08:40 BP 142/78 04/15/23 08:40 Pulse Ox 100 04/15/23 08:40 FiO2 40 04/08/23 08:02 Intake & Output 04/14/23 04/15/23 04/15/23 18:59 06:59 18:59 Intake Total 600 200 Output Total 650 1000 100 Balance -50 -1000 100 Intake: Oral 600 200 Output: Urine 450 900 Stool 200 100 100 Other: Voiding Method Indwelling Catheter Indwelling Catheter Indwelling Catheter ABP, PAP, CO, CI - Last Documented Arterial Blood Pressure 143/42 - Exam Abdomen: Soft, nontender, nondistended - Labs CBC & Chem 7: 04/15/23 04:03 04/15/23 07:11 Labs: Abnormal Lab Results - Last 24 Hours (Table) 04/14/23 04/14/23 04/14/23 Range/Units 12:09 16:41 20:15 WBC (3.8-10.6) k/uL RBC (3.80-5.40) m/uL Hgb (11.4-16.0) gm/dL Hct (34.0-46.0) % MCV (80.0-100.0) fL MCHC (31.0-37.0) g/dL RDW (11.5-15.5) % Neutrophils # (1.3-7.7) k/uL Chloride (98-107) mmol/L Carbon Dioxide (22-30) mmol/L Glucose (74-99) mg/dL POC Glucose (mg/dL) 140 H 140 H 128 H (70-110) mg/dL Calcium (8.4-10.2) mg/dL AST (14-36) U/L ALT (4-34) U/L C-Reactive Protein (<1.0) mg/dL Total Protein (6.3-8.2) g/dL Albumin (3.5-5.0) g/dL 04/15/23 04/15/23 04/15/23 Range/Units 04:03 06:11 07:11 WBC 11.9 H (3.8-10.6) k/uL RBC 3.07 L (3.80-5.40) m/uL Hgb 9.9 L (11.4-16.0) gm/dL Hct 32.0 L (34.0-46.0) % MCV 104.2 H (80.0-100.0) fL MCHC 30.9 L (31.0-37.0) g/dL RDW 16.0 H (11.5-15.5) % Neutrophils # 9.4 H (1.3-7.7) k/uL Chloride 112 H (98-107) mmol/L Carbon Dioxide 16 L (22-30) mmol/L Glucose 121 H (74-99) mg/dL POC Glucose (mg/dL) 135 H (70-110) mg/dL Calcium 8.0 L (8.4-10.2) mg/dL AST 64 H (14-36) U/L ALT 60 H (4-34) U/L C-Reactive Protein 5.0 H (<1.0) mg/dL Total Protein 5.2 L (6.3-8.2) g/dL Albumin 2.7 L (3.5-5.0) g/dL Assessment and Plan (1) Ileus Narrative/Plan: Patient doing better at this time. Ileus improved. Agree with removing fecal management system. Continue regular diet. Current Visit: Yes Status: Acute Code(s): K56.7 - ILEUS, UNSPECIFIED SNOMED Code(s): 569375786
--- NOTE | 2023-04-15 10:11 | P.PN ---
Subjective Progress Note Date: 04/15/23 04/09/2023, the patient is extubated on oxygen at 2 L/m nasal cannula. Profoundly weak, still lethargic, follows simple commands and unable to move her arms, she is able to wiggle her toes and she does have facial expression in response to questions. No signs of any respiratory distress. Chest x-ray is showing stable but the pulmonary infiltrates post-ARDS. She does have a cough and a gag. NG tube was kept in place and the patient started having diarrhea as of yesterday. The fecal management system was inserted and the patient has produced approximately 300 mL of stool since yesterday. We'll check stool for C. diff. At the same time, she is running higher blood pressure post extubation. The patient was started on Cleviprex dripp and this was discontinued this morning. The patientis running higher blood pressure. She did have few episodes of atrial fibrillation overnight and currently her rhythm is back to sinus.she remains on TPN for nutritional support pH remains on IV steroids. She remains on an insulin drip currently running at 10 units an hour. She continues to diabetes. She has another negative fluid balance of at least 2 L over the past 24 hours. The white cell count is at 12.4, hemoglobin is at 9.8. BUN is 33 with a creatinine of 0.6 and a sodium level is at 143 with a potassium level of 4.1. The patient is on IV Zosyn that was started on 04/03/2023 and the patient has nearly completed her course. 04/10/2023, patient remains in the ICU, remains extubated, she is on 2 L nasal cannula, requiring insulin drip at 9 units per hour, she is also on TPN, 45 mL per hour. Continues to have a nasogastric tube in place, and she is receiving trickle feedings, 10 mL per hour. Patient remains on Zosyn, continues to have difficulty with swallowing and with her speech, patient is to have speech and swallow evaluation today. Continues to have upper extremities weakness, not in any form of respiratory distress. She does have a cough reflex and a gag reflex. C. difficile screening was negative WBC count today is 8.5 hemoglobin is 9.8, basic metabolic profile is normal with normal electrolytes and normal renal profile. Fecal management system remains in place. Physical therapy is continued performing range of motion exercises for her extremities and joints. Patient is marginal at best. Patient was reevaluated 04/11/2023, remains in the ICU, basically about the same, she is on 2 L nasal cannula, does not seem to be in any distress, very by lysing better today at patient could say hello without any difficulty. Tends not to speak unless asked to do so. Otherwise she is using facial expressions. And using her hands. Patient remained generally weak, nonetheless she is able to move her upper and lower extremities. Continues to be followed by physical therapy and speech therapy. WBC count today is 10.7 hemoglobin is 9.6. Basic metabolic profile is normal. Chest x-ray showed minimal pulmonary vascular congestion and atelectasis especially at the left base. reevaluated today on 04/12/2023 patient may is in the ICU as an overflow. She is very comfortable, not in any distress, patient is on room air, still receiving enteral feeding at 60 ML per hour, chest x-ray showing more left basilar atelectasis, patient is doing well with incentive spirometry, continues to have significant amount of diarrhea. Hence Imodium was added today. She was supposed to have another swallow evaluation today, and possibly decide on removing the nasogastric tube if the patient passes the swallow evaluation. Remained generally weak especially in upper and lower extremities. Continues to have a central line in the right IJ area, this will be removed today since at peripheral IV access was established. Labs today showed a relatively normal CBC, normal electrolytes, normal renal profile. Reevaluated today on 04/13/2023, remains in the ICU as an overflow. Patient is doing well overall, she is getting a bit stronger nonetheless remained generally weak. Patient is able to swallow, she passed a swallow evaluation, and now she is being fed, and her nasogastric tube has been removed. Patient is still having diarrhea, and she remains on Imodium. Undergoing physical therapy and range of motion therapy, patient will need a care home course of tr eatment/physical therapy, and eventually she needs to be considered for rehab in [place]. CBC today is basically unremarkable a bit of leukocytosis noted WBC count of 15.7 and electrolytes are normal renal profile is normal, blood sugar is 159 The patient is seen today 04/14/2023 in follow-up on the selective care unit. She was transferred out of the intensive care unit yesterday. She is sitting up in bed. More awake and alert today. She is maintaining O2 saturations in the 90s on room air. She has a dry nonproductive cough. She remains afebrile. Hemodynamically stable. Computed tomography scan of the brain revealed no acute intracranial process. Barium swallow today revealed normal deglutition study. Sodium 143. Potassium 4.4. Bicarb 19. BUN 16. Creatinine 0.54. Glucose 137. She remains on bronchodilators. Encouraged increased use of the incentive spirometer. Anticoagulated with Xarelto. Completed antibiotics. The patient is seen today 04/15/2023 in follow-up on the selective care unit. He is resting comfortably in bed. Awake and alert in no acute distress. Feel ing a bit stronger each day. Working with physical therapy. Maintaining good O2 saturations up to 100% on room air. Afebrile. Hemodynamically stable. She is status post 3 units of packed red blood cells this admission. Current hemoglobin 9.9. Platelets 278. White count 11.9. Sodium 138. Potassium 3.9. Bicarb 16. BUN 15. Creatinine 0.52. Glucose 121. She remains anticoagulated with Xarelto. Protonix for GI prophylaxis. Bronchodilators as needed. Objective - Vital Signs Vital signs: Vital Signs Temp 98.1 F 04/15/23 08:40 Pulse 69 04/15/23 08:40 Resp 16 04/15/23 08:40 BP 142/78 04/15/23 08:40 Pulse Ox 100 04/15/23 08:40 FiO2 40 04/08/23 08:02 Intake & Output 04/14/23 04/15/23 04/15/23 18:59 06:59 18:59 Intake Total 600 200 Output Total 650 1000 100 Balance -50 -1000 100 Intake: Oral 600 200 Output: Urine 450 900 Stool 200 100 100 Other: Voiding Method Indwelling Catheter Indwelling Catheter Indwelling Catheter ABP, PAP, CO, CI - Last Documented Arterial Blood Pressure 143/42 - Exam GENERAL EXAM: Alert, pleasant 73-year-old female, weak and debilitated, though comfortable in no apparent distress. HEAD: Normocephalic. EYES: Normal reaction of pupils, equal size. NOSE: Clear with pink turbinates. THROAT: No erythema or exudates. NECK: No masses, no JVD. CHEST: No chest wall deformity. LUNGS: Equal air entry with no crackles, wheeze, rhonchi or dullness. On room air. CVS: S1 and S2 normal with no audible murmur, regular rhythm. ABDOMEN: No hepatosplenomegaly, normal bowel sounds, no guarding or rigidity. SPINE: No scoliosis or deformity SKIN: No rashes CENTRAL NERVOUS SYSTEM: Generalized weakness. No focal deficits, tone is normal in all 4 extremities. EXTREMITIES: There is no peripheral edema. No clubbing, no cyanosis. Peripheral pulses are intact. - Labs CBC & Chem 7: 04/15/23 04:03 04/15/23 07:11 Labs: Abnormal Lab Results - Last 24 Hours (Table) 04/14/23 04/14/23 04/14/23 Range/Units 12:09 16:41 20:15 WBC (3.8-10.6) k/uL RBC (3.80-5.40) m/uL Hgb (11.4-16.0) gm/dL Hct (34.0-46.0) % MCV (80.0-100.0) fL MCHC (31.0-37.0) g/dL RDW (11.5-15.5) % Neutrophils # (1.3-7.7) k/uL Chloride (98-107) mmol/L Carbon Dioxide (22-30) mmol/L Glucose (74-99) mg/dL POC Glucose (mg/dL) 140 H 140 H 128 H (70-110) mg/dL Calcium (8.4-10.2) mg/dL AST (14-36) U/L ALT (4-34) U/L C-Reactive Protein (<1.0) mg/dL Total Protein (6.3-8.2) g/dL Albumin (3.5-5.0) g/dL 04/15/23 04/15/23 04/15/23 Range/Units 04:03 06:11 07:11 WBC 11.9 H (3.8-10.6) k/uL RBC 3.07 L (3.80-5.40) m/uL Hgb 9.9 L (11.4-16.0) gm/dL Hct 32.0 L (34.0-46.0) % MCV 104.2 H (80.0-100.0) fL MCHC 30.9 L (31.0-37.0) g/dL RDW 16.0 H (11.5-15.5) % Neutrophils # 9.4 H (1.3-7.7) k/uL Chloride 112 H (98-107) mmol/L Carbon Dioxide 16 L (22-30) mmol/L Glucose 121 H (74-99) mg/dL POC Glucose (mg/dL) 135 H (70-110) mg/dL Calcium 8.0 L (8.4-10.2) mg/dL AST 64 H (14-36) U/L ALT 60 H (4-34) U/L C-Reactive Protein 5.0 H (<1.0) mg/dL Total Protein 5.2 L (6.3-8.2) g/dL Albumin 2.7 L (3.5-5.0) g/dL Assessment and Plan Assessment: Lumbar spondylosis and spondylolisthesisPostop Day 17: Irrigation and Debridement with revision dural repair lumbar spine ; Postop Day 25: [id number] decompression and fusion Acute hypoxic respiratory failure, this was subsequent to repair of a dural tear and secondary to large volume gastric aspiration requiring intubation and mechan ical ventilation. Patient was extubated on 04/09/2023, continues to tolerate the extubation. 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 Number of minutes spent on the visit: 10.
--- NOTE | 2023-04-15 10:18 | P.PN ---
Progress Note - Text Progress Note Date: 04/15/23 Diagnosis: 1. L1-S1 spondylosis with stenosis 2. L1-S1 spondylolisthesis 3. Lower extremity radiculopathy 4. Low back pain 5. Lower extremity weakness Subjective: Patient was seen at bedside this morning lying semirecumbent position. Dickens boots are present bilateral lower extremities. Dressing appears clean, dry, intact. We'll maintain at this time. Patient has been improving this week. Awaiting patient to be transferred when a room with a Ana lift is available. Patient says she has been moving her upper extremities. Patient denies chest pain, fever, shortness breath, nausea, vomiting, change in vision, loss of bowel/bladder control. Objective: Dressing is clean, dry, intact. We'll maintain dressing for now. Sensation is equal, symmetric, bilateral intact. Patient is able to move upper extremities at this time. Patient is able to dorsi and plantarflex ankles bilaterally and wiggle toes. Patient does have significant limited range of motion and bilateral knees and hips appear referred pain to the low back and weakness in the lower extremities. 4-/5 in all major motor groups in bilateral upper extremities. Bilateral lower extremity motor exam limited due to patient's status. Neurovascular status intact bilaterally. Radial pulse intact, 2+ bilaterally. Homans bilaterally. Assessment: Postop Day 17: Irrigation and Debridement with revision dural repair lumbar spine ; Postop Day 25: [id number] decompression and fusion 1. Aspiration Pneumonia 2. Post-op Ileus 3. Post-op anemia-resolved 4. L1-S1 spondylosis with stenosis 5. L1-S1 spondylolisthesis 6. Lower extremity radiculopathy 7. Low back pain 8. Lower extremity weakness Plan: 1. L1-S1 spondylosis stenosis; low back pain; lower extremity weakness in lower extremity radiculopathy. Patient at bedside this morning on the cardiac unit. Pain medication as needed. Recommend for patient to continue move upper extremities and dorsi and plantarflex ankles bilaterally. Plan for transfer to room with Ana lift when available. Patient stable from an orthopedic standpoint for discharge. Discharge per medicine to [facility]. We will continue to be available as needed. 2. Appreciate medical management3 3. DVT prophylaxis - mechanical 4. GI prophylaxis - Protonix; Imodium 5. Pain management 6. PT/OT - continue to sit patient up and mobilized upper and lower extremities 7. Encourage incentive spirometer use
[2023-04-15 11:50] LABS: Glucose,Whole Blood 115 mg/dL (70-110)
--- NOTE | 2023-04-15 14:27 | P.PN ---
Subjective Progress Note Date: 04/15/23 Hospital Course: Patient is a 72-year-old female with dyslipidemia, hypertension, non-insulin- dependent diabetes mellitus type 2 who presented for elective T10 to pelvis decompression and fusion. We were consulted for medical management. She underwent successful decompression and fusion on 03/21, however, her postoperative hospital course was complicated by positional headache suspicious for CSF leak. Subsequently, she was taken back to the operating room on 03/29 for CSF repair. During intubation, patient was noted to have significant amounts of the aspirate emesis and oropharynx and after intubation she was noted to have 1.2 L of gastric output from OG tube. During the procedure she had increasing FiO2 requirements. Postoperatively she became hypotensive down to the 70s/30s and hypoxia down to the mid 60s despite FiO2 of 100% and PEEP of 12. She was transferred to the ICU and started on the Levophed. Differential diagnosis of septic shock secondary to meningitis versus aspiration pneumonia as well as hypovolemic shock secondary to CSF volume loss were considered. She was administered 3L of lactated Ringer's. Chest x-ray postoperatively on 03/29 demonstrated diffuse pulmonary edema with concern for ARDS superimposed on aspiration. Empiric antibiotics were started with vancomycin, ceftriaxone, Unasynfor empiric coverage of both meningitis and aspiration pneumonia/ Infectious disease was consulted. Sputum culture was positive for Klebsiella and Enterobacter with variable resistance. Pro-calcitonin was elevated at 6.7. Her CVP was monitored and remained stable between 13 and 15. Echocardiogram showed EF 60-65%, mild TR, and moderate pulmonary hypertension. Patient was noted to not have a bowel movement in approximately 5 days as of 03/29 and Gen. s winnie was consulted for ileus. She developed sepsis induced atrial fibrillation with RVR, was started on amiodarone drip and converted back to normal sinus rhythm. She is placed on metoprolol once her pressor requirements started to decrease on 04/01, however, this was held after pressor requirements increased again on 04/03. Discussed with orthopedic surgery that no anticoagulation will be given for atrial fibrillation during the critical phase, but can be initiated once patient is able to be transitioned to the floor. She did require nimbex which was successfully stopped on 04/03/23, she was given relistor on 04/03/23 and started having bowel movements. She was able to come off levo on 04/04/23. After patient was weaned off of vasopressor agents she did have some episodes of hypertension requiring a cleft pain drip as she was unable to tolerate oral feedings. Patient continued to have bowel movements and tube feeds were started at trickle. She was successfully extubated on 04/08/23. She required a fecal management system, and her reglan was stopped. Mental status improved. NG tube is out, patient started oral intake. Slowly advancing diet, working on feeding. Pending [facility] discharge. Subjective: Patient seen and examined at bedside. No acute events overnight. mental status and weakness is improved. Rectal tube and Garnett catheter still in place. Oral intake improved Pertinent positives and negatives as discussed above, a complete review of systems was performed and all other systems are negative. Vitals Signs Reviewed. General: nontoxic, no distress, appears at stated age Cardiovascular: S1S2 reg, no murmur, positive posterior tibial pulse bilateral, Lungs: Coarse breath sounds bilateral, no rhonchi, no rales , no accessory muscle use Abdominal: soft, nontender to palpation, no guarding, no appreciable organomegaly Ext: no gross muscle atrophy, Anasarca , no contractures Neuro: moving all extremities Psych: Awake, alert and oriented x3 Data Reviewed Today: Pertinent Labs: CBC shows WBC 11.9, hemoglobin 9.9, potassium 3.9, bicarb 16, blood sugars range between 121-135 Imaging: No new imaging Assessment and Plan: Multi-focal pneumonia,due to Klebsiella and Enterobacter complicated by septic shock, no longer on pressors Ventilator Dependent Acute Hypoxemic and Hypercarbic Respiratory Failure, ARDS, now on nasal cannula Postoperative ileus, resolved now with diarrhea Toxic metabolic encepahlopathy , possible hypoactive delirium, resolving Profound weakness, possibly critical illness myopathy - Pulm note reviewed: increase bicarb - Surgery note reviewed: remove rectal tube -Completed a course of IV Zosyn - ID following -Diarrhea slowly resolving, has had a rectal tube in place, on loperamide Sepsis induced atrial fibrillation with RVR, paroxysmal Hypertension - Lisinopril 40 mg, continue lopressor 25 mg twice daily - Amiodarone 200 mg oral twice daily - Xarelto 20 mg daily Status post T10 to pelvis decompression with fusion s/p CSF repair on 03/29 -ortho note reviewed, patient is stable for discharge from their standpoint Acute blood loss anemia, stable - s/p 3 unit pRBC - Anticipated outcome of surgery/prolonged ICU stay Diabetes mellitus type 2 -Hold metformin -Before meals at bedtime sliding scale -Follow blood sugars Dyslipidemia -Gemfibrozil Metabolic acidosis, likely related diarrhea -oral bicarb, increased today DVT ppx: Xarelto Code status: Full code Anticipated discharge place: [facility] Anticipated discharge time: waiting for bed Objective - Vital Signs Vital signs: Vital Signs Temp 97.6 F 04/15/23 11:15 Pulse 62 04/15/23 11:15 Resp 16 04/15/23 11:15 BP 115/73 04/15/23 11:15 Pulse Ox 94 L 04/15/23 11:15 FiO2 40 04/08/23 08:02 Intake & Output 04/14/23 04/15/23 04/15/23 18:59 06:59 18:59 Intake Total 600 640 Output Total 650 1000 200 Balance -50 -1000 440 Intake: Oral 600 640 Output: Urine 450 900 Stool 200 100 Urine/Stool Mix 200 Other: Voiding Method Indwelling Catheter Indwelling Catheter Indwelling Catheter # Bowel Movements 1 ABP, PAP, CO, CI - Last Documented Arterial Blood Pressure 143/42 - Labs CBC & Chem 7: 04/15/23 04:03 04/15/23 07:11 Labs: Abnormal Lab Results - Last 24 Hours (Table) 04/14/23 04/14/23 04/15/23 Range/Units 16:41 20:15 04:03 WBC 11.9 H (3.8-10.6) k/uL RBC 3.07 L (3.80-5.40) m/uL Hgb 9.9 L (11.4-16.0) gm/dL Hct 32.0 L (34.0-46.0) % MCV 104.2 H (80.0-100.0) fL MCHC 30.9 L (31.0-37.0) g/dL RDW 16.0 H (11.5-15.5) % Neutrophils # 9.4 H (1.3-7.7) k/uL Chloride (98-107) mmol/L Carbon Dioxide (22-30) mmol/L Glucose (74-99) mg/dL POC Glucose (mg/dL) 140 H 128 H (70-110) mg/dL Calcium (8.4-10.2) mg/dL AST (14-36) U/L ALT (4-34) U/L C-Reactive Protein (<1.0) mg/dL Total Protein (6.3-8.2) g/dL Albumin (3.5-5.0) g/dL 04/15/23 04/15/23 04/15/23 Range/Units 06:11 07:11 11:47 WBC (3.8-10.6) k/uL RBC (3.80-5.40) m/uL Hgb (11.4-16.0) gm/dL Hct (34.0-46.0) % MCV (80.0-100.0) fL MCHC (31.0-37.0) g/dL RDW (11.5-15.5) % Neutrophils # (1.3-7.7) k/uL Chloride 112 H (98-107) mmol/L Carbon Dioxide 16 L (22-30) mmol/L Glucose 121 H (74-99) mg/dL POC Glucose (mg/dL) 135 H 115 H (70-110) mg/dL Calcium 8.0 L (8.4-10.2) mg/dL AST 64 H (14-36) U/L ALT 60 H (4-34) U/L C-Reactive Protein 5.0 H (<1.0) mg/dL Total Protein 5.2 L (6.3-8.2) g/dL Albumin 2.7 L (3.5-5.0) g/dL
[2023-04-15 16:24] LABS: Glucose,Whole Blood 107 mg/dL (70-110)
[2023-04-15] MEDS: RIVAROXABAN 20 MG TAB PO SCH (16:35)
[2023-04-15 19:56] LABS: Glucose,Whole Blood 135 mg/dL (70-110)
[2023-04-16 06:01] LABS: Glucose,Whole Blood 126 mg/dL (70-110)
[2023-04-16] MEDS: INSULIN ASPART (NovoLOG) 100 UNIT/ML VIAL SQ SCH ×4 (06:13→20:34)
[2023-04-16 07:26] LABS: African American GFR (CKD) >90 (>60 ml/min/1.73 sqM); Anion Gap 7 mmol/L; Blood Urea Nitrogen 12 mg/dL (7-17); Calcium 7.4 mg/dL (8.4-10.2); Carbon Dioxide 17 mmol/L (22-30); Chloride 113 mmol/L (98-107); Glucose 124 mg/dL (74-99); Non-African American GFR(CKD) >90 (>60 ml/min/1.73 sqM); Sodium 137 mmol/L (137-145)
[2023-04-16] MEDS: PANTOPRAZOLE 40 MG/10 ML VIAL IV SCH (07:50)
[2023-04-16] MEDS: GABAPENTIN 100 MG CAP PO SCH ×3 (07:50→21:34)
[2023-04-16] MEDS: lisinopriL 20 MG TAB PO SCH (07:50)
[2023-04-16] MEDS: SODIUM BICARBONATE TAB 650 MG TAB PO SCH ×3 (07:50→21:34)
[2023-04-16] MEDS: METOPROLOL TARTRATE 25 MG TAB PO SCH ×2 (07:51→20:34)
[2023-04-16] MEDS: AMIODARONE 200 MG TAB PO SCH ×2 (07:51→20:34)
[2023-04-16 08:01] LABS: Potassium 3.5 mmol/L (3.5-5.1)
--- NOTE | 2023-04-16 11:27 | P.PN ---
Subjective Progress Note Date: 04/16/23 Principal diagnosis: Ileus Patient is doing well today. The fecal management system was removed yesterday. Still having diarrhea at this time. No pain. No nausea or vomiting. Tolerating diet. Objective - Vital Signs Vital signs: Vital Signs Temp 98.0 F 04/16/23 11:10 Pulse 66 04/16/23 11:10 Resp 18 04/16/23 11:10 BP 118/72 04/16/23 11:10 Pulse Ox 99 04/16/23 11:10 FiO2 40 04/08/23 08:02 Intake & Output 04/15/23 04/16/23 04/16/23 18:59 06:59 18:59 Intake Total 690 200 Output Total 775 450 275 Balance -85 -450 -75 Intake: Oral 690 200 Output: Urine 575 450 275 Urine/Stool Mix 200 Other: Voiding Method Indwelling Catheter Indwelling Catheter Indwelling Catheter # Bowel Movements 1 1 1 ABP, PAP, CO, CI - Last Documented Arterial Blood Pressure 143/42 - Exam Abdomen: Soft, nontender, nondistended - Labs CBC & Chem 7: 04/15/23 04:03 04/16/23 07:05 Labs: Abnormal Lab Results - Last 24 Hours (Table) 04/15/23 04/15/23 04/16/23 Range/Units 11:47 19:54 05:59 Chloride (98-107) mmol/L Carbon Dioxide (22-30) mmol/L Glucose (74-99) mg/dL POC Glucose (mg/dL) 115 H 135 H 126 H (70-110) mg/dL Calcium (8.4-10.2) mg/dL 04/16/23 Range/Units 07:05 Chloride 113 H (98-107) mmol/L Carbon Dioxide 17 L (22-30) mmol/L Glucose 124 H (74-99) mg/dL POC Glucose (mg/dL) (70-110) mg/dL Calcium 7.4 L (8.4-10.2) mg/dL Assessment and Plan (1) Ileus Narrative/Plan: Patient doing well at this time. C. diff from a few days ago was negative. Monitor diarrhea. Continue diet. Current Visit: Yes Status: Acute Code(s): K56.7 - ILEUS, UNSPECIFIED SNOMED Code(s): 992680502
[2023-04-16 11:33] LABS: Glucose,Whole Blood 164 mg/dL (70-110)
--- NOTE | 2023-04-16 12:20 | P.PN ---
Subjective Progress Note Date: 04/16/23 04/09/2023, the patient is extubated on oxygen at 2 L/m nasal cannula. Profoundly weak, still lethargic, follows simple commands and unable to move her arms, she is able to wiggle her toes and she does have facial expression in response to questions. No signs of any respiratory distress. Chest x-ray is showing stable but the pulmonary infiltrates post-ARDS. She does have a cough and a gag. NG tube was kept in place and the patient started having diarrhea as of yesterday. The fecal management system was inserted and the patient has produced approximately 300 mL of stool since yesterday. We'll check stool for C. diff. At the same time, she is running higher blood pressure post extubation. The patient was started on Cleviprex dripp and this was discontinued this morning. The patientis running higher blood pressure. She did have few episodes of atrial fibrillation overnight and currently her rhythm is back to sinus.she remains on TPN for nutritional support pH remains on IV steroids. She remains on an insulin drip currently running at 10 units an hour. She continues to diabetes. She has another negative fluid balance of at least 2 L over the past 24 hours. The white cell count is at 12.4, hemoglobin is at 9.8. BUN is 33 with a creatinine of 0.6 and a sodium level is at 143 with a potassium level of 4.1. The patient is on IV Zosyn that was started on 04/03/2023 and the patient has nearly completed her course. 04/10/2023, patient remains in the ICU, remains extubated, she is on 2 L nasal cannula, requiring insulin drip at 9 units per hour, she is also on TPN, 45 mL per hour. Continues to have a nasogastric tube in place, and she is receiving trickle feedings, 10 mL per hour. Patient remains on Zosyn, continues to have difficulty with swallowing and with her speech, patient is to have speech and swallow evaluation today. Continues to have upper extremities weakness, not in any form of respiratory distress. She does have a cough reflex and a gag reflex. C. difficile screening was negative WBC count today is 8.5 hemoglobin is 9.8, basic metabolic profile is normal with normal electrolytes and normal renal profile. Fecal management system remains in place. Physical therapy is continued performing range of motion exercises for her extremities and joints. Patient is marginal at best. Patient was reevaluated 04/11/2023, remains in the ICU, basically about the same, she is on 2 L nasal cannula, does not seem to be in any distress, very by lysing better today at patient could say hello without any difficulty. Tends not to speak unless asked to do so. Otherwise she is using facial expressions. And using her hands. Patient remained generally weak, nonetheless she is able to move her upper and lower extremities. Continues to be followed by physical therapy and speech therapy. WBC count today is 10.7 hemoglobin is 9.6. Basic metabolic profile is normal. Chest x-ray showed minimal pulmonary vascular congestion and atelectasis especially at the left base. reevaluated today on 04/12/2023 patient may is in the ICU as an overflow. She is very comfortable, not in any distress, patient is on room air, still receiving enteral feeding at 60 ML per hour, chest x-ray showing more left basilar atelectasis, patient is doing well with incentive spirometry, continues to have significant amount of diarrhea. Hence Imodium was added today. She was supposed to have another swallow evaluation today, and possibly decide on removing the nasogastric tube if the patient passes the swallow evaluation. Remained generally weak especially in upper and lower extremities. Continues to have a central line in the right IJ area, this will be removed today since at peripheral IV access was established. Labs today showed a relatively normal CBC, normal electrolytes, normal renal profile. Reevaluated today on 04/13/2023, remains in the ICU as an overflow. Patient is doing well overall, she is getting a bit stronger nonetheless remained generally weak. Patient is able to swallow, she passed a swallow evaluation, and now she is being fed, and her nasogastric tube has been removed. Patient is still having diarrhea, and she remains on Imodium. Undergoing physical therapy and range of motion therapy, patient will need a halfway course of tr eatment/physical therapy, and eventually she needs to be considered for rehab in [place]. CBC today is basically unremarkable a bit of leukocytosis noted WBC count of 15.7 and electrolytes are normal renal profile is normal, blood sugar is 159 The patient is seen today 04/14/2023 in follow-up on the selective care unit. She was transferred out of the intensive care unit yesterday. She is sitting up in bed. More awake and alert today. She is maintaining O2 saturations in the 90s on room air. She has a dry nonproductive cough. She remains afebrile. Hemodynamically stable. Computed tomography scan of the brain revealed no acute intracranial process. Barium swallow today revealed normal deglutition study. Sodium 143. Potassium 4.4. Bicarb 19. BUN 16. Creatinine 0.54. Glucose 137. She remains on bronchodilators. Encouraged increased use of the incentive spirometer. Anticoagulated with Xarelto. Completed antibiotics. The patient is seen today 04/15/2023 in follow-up on the selective care unit. He is resting comfortably in bed. Awake and alert in no acute distress. Feel ing a bit stronger each day. Working with physical therapy. Maintaining good O2 saturations up to 100% on room air. Afebrile. Hemodynamically stable. She is status post 3 units of packed red blood cells this admission. Current hemoglobin 9.9. Platelets 278. White count 11.9. Sodium 138. Potassium 3.9. Bicarb 16. BUN 15. Creatinine 0.52. Glucose 121. She remains anticoagulated with Xarelto. Protonix for GI prophylaxis. Bronchodilators as needed. The patient is seen today 04/16/2023 in follow-up on the selective care unit. She is currently resting comfortably in bed. Awake and alert in no acute distress. Getting stronger daily. Maintaining good O2 saturations in the high 90s on room air. Afebrile. Hemodynamically stable. Sodium 137. Potassium 3.5. Bicarb 17. BUN 12. Creatinine 0.52. Objective - Vital Signs Vital signs: Vital Signs Temp 98.0 F 04/16/23 11:10 Pulse 66 04/16/23 11:10 Resp 18 04/16/23 11:10 BP 118/72 04/16/23 11:10 Pulse Ox 99 04/16/23 11:10 FiO2 40 04/08/23 08:02 Intake & Output 04/15/23 04/16/23 04/16/23 18:59 06:59 18:59 Intake Total 690 200 Output Total 775 450 275 Balance -85 -450 -75 Intake: Oral 690 200 Output: Urine 575 450 275 Urine/Stool Mix 200 Other: Voiding Method Indwelling Catheter Indwelling Catheter Indwelling Catheter # Bowel Movements 1 1 1 ABP, PAP, CO, CI - Last Documented Arterial Blood Pressure 143/42 - Exam GENERAL EXAM: Alert, weak 73-year-old female, on room air, though comfortable in no apparent distress. HEAD: Normocephalic. EYES: Normal reaction of pupils, equal size. NOSE: Clear with pink turbinates. THROAT: No erythema or exudates. NECK: No masses, no JVD. CHEST: No chest wall deformity. LUNGS: Equal air entry with no crackles, wheeze, rhonchi or dullness. On room air. CVS: S1 and S2 normal with no audible murmur, regular rhythm. ABDOMEN: No hepatosplenomegaly, normal bowel sounds, no guarding or rigidity. SPINE: No scoliosis or deformity SKIN: No rashes CENTRAL NERVOUS SYSTEM: Generalized weakness. No focal deficits, tone is normal in all 4 extremities. EXTREMITIES: There is no peripheral edema. No clubbing, no cyanosis. P eripheral pulses are intact. - Labs CBC & Chem 7: 04/15/23 04:03 04/16/23 07:05 Labs: Abnormal Lab Results - Last 24 Hours (Table) 04/15/23 04/16/23 04/16/23 Range/Units 19:54 05:59 07:05 Chloride 113 H (98-107) mmol/L Carbon Dioxide 17 L (22-30) mmol/L Glucose 124 H (74-99) mg/dL POC Glucose (mg/dL) 135 H 126 H (70-110) mg/dL Calcium 7.4 L (8.4-10.2) mg/dL 04/16/23 Range/Units 11:31 Chloride (98-107) mmol/L Carbon Dioxide (22-30) mmol/L Glucose (74-99) mg/dL POC Glucose (mg/dL) 164 H (70-110) mg/dL Calcium (8.4-10.2) mg/dL Assessment and Plan Assessment: Lumbar spondylosis and spondylolisthesis Postop Day 18: Irrigation and Debridement with revision dural repair lumbar spine; Postop Day 26: [id number] decompression and fusion Acute hypoxic respiratory failure, this was subsequent to repair of a dural tear and secondary to large volume gastric aspiration requiring intubation and mechanical ventilation. Patient was extubated on 04/09/2023, continues to tolerate the extubation. 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 Number of minutes spent on the visit: 10.
--- NOTE | 2023-04-16 14:06 | P.PN ---
Subjective Progress Note Date: 04/16/23 Hospital Course: Patient is a 72-year-old female with dyslipidemia, hypertension, non-insulin- dependent diabetes mellitus type 2 who presented for elective T10 to pelvis decompression and fusion. We were consulted for medical management. She underwent successful decompression and fusion on 03/21, however, her postoperative hospital course was complicated by positional headache suspicious for CSF leak. Subsequently, she was taken back to the operating room on 03/29 for CSF repair. During intubation, patient was noted to have significant amounts of the aspirate emesis and oropharynx and after intubation she was noted to have 1.2 L of gastric output from OG tube. During the procedure she had increasing FiO2 requirements. Postoperatively she became hypotensive down to the 70s/30s and hypoxia down to the mid 60s despite FiO2 of 100% and PEEP of 12. She was transferred to the ICU and started on the Levophed. Differential diagnosis of septic shock secondary to meningitis versus aspiration pneumonia as well as hypovolemic shock secondary to CSF volume loss were considered. She was administered 3L of lactated Ringer's. Chest x-ray postoperatively on 03/29 demonstrated diffuse pulmonary edema with concern for ARDS superimposed on aspiration. Empiric antibiotics were started with vancomycin, ceftriaxone, Unasynfor empiric coverage of both meningitis and aspiration pneumonia/ Infectious disease was consulted. Sputum culture was positive for Klebsiella and Enterobacter with variable resistance. Pro-calcitonin was elevated at 6.7. Her CVP was monitored and remained stable between 13 and 15. Echocardiogram showed EF 60-65%, mild TR, and moderate pulmonary hypertension. Patient was noted to not have a bowel movement in approximately 5 days as of 03/29 and Gen. surgery was consulted for ileus. She developed sepsis induced atrial fibrillation with RVR, was started on amiodarone drip and converted back to normal sinus rhythm. She is placed on metoprolol once her pressor requirements started to decrease on 04/01, however, this was held after pressor requirements increased again on 04/03. Discussed with orthopedic surgery that no anticoagulation will be given for atrial fibrillation during the critical phase, but can be initiated once patient is able to be transitioned to the floor. She did require nimbex which was successfully stopped on 04/03/23, she was given relistor on 04/03/23 and started having bowel movements. She was able to come off levo on 04/04/23. After patient was weaned off of vasopressor agents she did have some episodes of hypertension requiring a cleft pain drip as she was unable to tolerate oral feedings. Patient continued to have bowel movements and tube feeds were started at trickle. She was successfully extubated on 04/08/23. She required a fecal management system, and her reglan was stopped. Mental status improved. NG tube is out, patient started oral intake. Slowly advancing diet, working on feeding. Pending [facility] discharge. Subjective: Patient seen and examined at bedside. No acute events overnight. mental status and weakness is improved. Garnett catheter still in place. Oral intake improved Pertinent positives and negatives as discussed above, a complete review of systems was performed and all other systems are negative. Vitals Signs Reviewed. General: nontoxic, no distress, appears at stated age Cardiovascular: S1S2 reg, no murmur, positive posterior tibial pulse bilateral, Lungs: Coarse breath sounds bilateral, no rhonchi, no rales , no accessory muscle use Abdominal: soft, nontender to palpation, no guarding, no appreciable organomegaly Ext: no gross muscle atrophy, Anasarca , no contractures Neuro: moving all extremities Psych: Awake, alert and oriented x3 Data Reviewed Today: Pertinent Labs: Potassium 3.5, bicarb 17, blood sugars range between 124-164 Imaging: No new imaging Assessment and Plan: Multi-focal pneumonia,due to Klebsiella and Enterobacter complicated by septic shock, no longer on pressors Ventilator Dependent Acute Hypoxemic and Hypercarbic Respiratory Failure, ARDS, now on room air Postoperative ileus, resolved now with diarrhea Toxic metabolic encepahlopathy , possible hypoactive delirium, resolving Profound weakness, possibly critical illness myopathy - Pulm note reviewed: okay for discharge - Surgery note reviewed: okay for discharge -Completed a course of IV Zosyn - ID following Sepsis induced atrial fibrillation with RVR, paroxysmal Hypertension - Lisinopril 40 mg, continue lopressor 25 mg twice daily - Amiodarone 200 mg oral twice daily - Xarelto 20 mg daily Status post T10 to pelvis decompression with fusion s/p CSF repair on 03/29 -ortho note reviewed, patient is stable for discharge from their standpoint Acute blood loss anemia, stable - s/p 3 unit pRBC - Anticipated outcome of surgery/prolonged ICU stay Diabetes mellitus type 2 -Hold metformin -Before meals at bedtime sliding scale -Follow blood sugars Dyslipidemia -Gemfibrozil Metabolic acidosis, likely related diarrhea -oral bicarb, continue DVT ppx: Xarelto Code status: Full code Anticipated discharge place: [facility] Anticipated discharge time: waiting for bed Objective - Vital Signs Vital signs: Vital Signs Temp 98.0 F 04/16/23 11:10 Pulse 66 04/16/23 11:10 Resp 18 04/16/23 11:10 BP 118/72 04/16/23 11:10 Pulse Ox 99 04/16/23 11:10 FiO2 40 04/08/23 08:02 Intake & Output 04/15/23 04/16/23 04/16/23 18:59 06:59 18:59 Intake Total 690 318 Output Total 775 450 275 Balance -85 -450 43 Intake: Oral 690 318 Output: Urine 575 450 275 Urine/Stool Mix 200 Other: Voiding Method Indwelling Catheter Indwelling Catheter Indwelling Catheter # Bowel Movements 1 1 1 ABP, PAP, CO, CI - Last Documented Arterial Blood Pressure 143/42 - Labs CBC & Chem 7: 04/15/23 04:03 04/16/23 07:05 Labs: Abnormal Lab Results - Last 24 Hours (Table) 04/15/23 04/16/23 04/16/23 Range/Units 19:54 05:59 07:05 Chloride 113 H (98-107) mmol/L Carbon Dioxide 17 L (22-30) mmol/L Glucose 124 H (74-99) mg/dL POC Glucose (mg/dL) 135 H 126 H (70-110) mg/dL Calcium 7.4 L (8.4-10.2) mg/dL 04/16/23 Range/Units 11:31 Chloride (98-107) mmol/L Carbon Dioxide (22-30) mmol/L Glucose (74-99) mg/dL POC Glucose (mg/dL) 164 H (70-110) mg/dL Calcium (8.4-10.2) mg/dL
--- NOTE | 2023-04-16 16:15 | P.PN ---
Subjective Progress Note Date: 04/15/23 Principal diagnosis: Sepsis/pneumonia Patient is a 73-year-old female electively admitted to the hospital 03/21/2023 and this patient who is s/p extensive thoracolumbar spine surgery in this patient who is status post L2-L5 deformity correction did have a L2-S1 interbody fusion and T10-L2 posterior lateral instrumented fusion,patient did have postoperative CSF leak status post complex T10 posterior decompression fusion with dural repair postoperatively the patient did have a respiratory distress requiring intubation and admission to the ICU.Patient did have CT humera ogram of the chest that was negative for PE did shows multifocal groundglass opacities, CT abdomen and pelvis was consistent with ileus and no evidence of perforation On today's evaluation that is 04/15/2023, the patient remains to be afebrile, the patient is breathing comfortably on room air and the patient denies any chest pain shortness of breath or cough, no nausea no vomiting no abdominal pain , the patient diarrhea has slowed on the patient's fecal management system has been discontinued Patient white count is down to 11.9 today, the patient creatinine is 0.52 Objective - Vital Signs Vital signs: Vital Signs Temp 98.1 F 04/15/23 08:40 Pulse 69 04/15/23 08:40 Resp 16 04/15/23 08:40 BP 142/78 04/15/23 08:40 Pulse Ox 100 04/15/23 08:40 FiO2 40 04/08/23 08:02 Intake & Output 04/14/23 04/15/23 04/15/23 18:59 06:59 18:59 Intake Total 600 200 Output Total 650 1000 100 Balance -50 -1000 100 Intake: Oral 600 200 Output: Urine 450 900 Stool 200 100 100 Other: Voiding Method Indwelling Catheter Indwelling Catheter Indwelling Catheter ABP, PAP, CO, CI - Last Documented Arterial Blood Pressure 143/42 - Exam GENERAL DESCRIPTION: An elderly female up in the chair in no distress RESPIRATORY SYSTEM: Unlabored breathing , decreased breath sounds at bases HEART: S1 S2 regular rate and rhythm , ABDOMEN: Soft , no tenderness EXTREMITIES: Bilateral lower extremity swelling no redness - Labs CBC & Chem 7: 04/15/23 04:03 04/16/23 07:05 Labs: Abnormal Lab Results - Last 24 Hours (Table) 04/14/23 04/14/23 04/14/23 Range/Units 12:09 16:41 20:15 WBC (3.8-10.6) k/uL RBC (3.80-5.40) m/uL Hgb (11.4-16.0) gm/dL Hct (34.0-46.0) % MCV (80.0-100.0) fL MCHC (31.0-37.0) g/dL RDW (11.5-15.5) % Neutrophils # (1.3-7.7) k/uL Chloride (98-107) mmol/L Carbon Dioxide (22-30) mmol/L Glucose (74-99) mg/dL POC Glucose (mg/dL) 140 H 140 H 128 H (70-110) mg/dL Calcium (8.4-10.2) mg/dL AST (14-36) U/L ALT (4-34) U/L C-Reactive Protein (<1.0) mg/dL Total Protein (6.3-8.2) g/dL Albumin (3.5-5.0) g/dL 04/15/23 04/15/23 04/15/23 Range/Units 04:03 06:11 07:11 WBC 11.9 H (3.8-10.6) k/uL RBC 3.07 L (3.80-5.40) m/uL Hgb 9.9 L (11.4-16.0) gm/dL Hct 32.0 L (34.0-46.0) % MCV 104.2 H (80.0-100.0) fL MCHC 30.9 L (31.0-37.0) g/dL RDW 16.0 H (11.5-15.5) % Neutrophils # 9.4 H (1.3-7.7) k/uL Chloride 112 H (98-107) mmol/L Carbon Dioxide 16 L (22-30) mmol/L Glucose 121 H (74-99) mg/dL POC Glucose (mg/dL) 135 H (70-110) mg/dL Calcium 8.0 L (8.4-10.2) mg/dL AST 64 H (14-36) U/L ALT 60 H (4-34) U/L C-Reactive Protein 5.0 H (<1.0) mg/dL Total Protein 5.2 L (6.3-8.2) g/dL Albumin 2.7 L (3.5-5.0) g/dL Assessment and Plan (1) Sepsis Current Visit: Yes Status: Acute Code(s): A41.9 - SEPSIS, UNSPECIFIED ORGANISM SNOMED Code(s): 72083337 (2) Gram-negative pneumonia Current Visit: Yes Status: Acute Code(s): J15.6 - PNEUMONIA DUE TO OTHER GRAM-NEGATIVE BACTERIA SNOMED Code(s): 144112549 (3) Leukocytosis Current Visit: Yes Status: Acute Code(s): D72.829 - ELEVATED WHITE BLOOD CELL COUNT, UNSPECIFIED SNOMED Code(s): 775658238 Plan: 1patient with a sepsis/septic shock in this patient with fever elevated white count hypertension tachycardia is source likely aspiration pneumonia likely gram-negative with a sputum currently growing Klebsiella and Enterobacter with some resistant pattern, patient subsequently did have a CT that heavy suspicious for ileus and concern for aspiration pneumonia that has been adequately treated 2-patient did have significant diarrhea, antibiotics were discontinued stool for C. diff is negative, patient white count is trending down continue the current supportive treatment and no need for antibiotic therapy Dictation was produced using [employer] dictation software. please excuse any grammatical, word or spelling errors. Time with Patient: Less than 30
--- NOTE | 2023-04-16 16:16 | P.PN ---
Subjective Progress Note Date: 04/16/23 Principal diagnosis: Sepsis/pneumonia Patient is a 73-year-old female electively admitted to the hospital 03/21/2023 and this patient who is s/p extensive thoracolumbar spine surgery in this patient who is status post L2-L5 deformity correction did have a L2-S1 interbody fusion and T10-L2 posterior lateral instrumented fusion,patient did have postoperative CSF leak status post complex T10 posterior decompression fusion with dural repair postoperatively the patient did have a respiratory distress requiring intubation and admission to the ICU.Patient did have CT humera ogram of the chest that was negative for PE did shows multifocal groundglass opacities, CT abdomen and pelvis was consistent with ileus and no evidence of perforation On today's evaluation that is 04/16/2023, the patient continues to be afebrile, the patient is breathing comfortably on room air and the patient denies any chest pain shortness of breath or cough, no nausea no vomiting no abdominal pain , the patient diarrhea has slowed , and no new symptoms feeling better Patient white count is down to 11.9 as of yesterday no CBC was done today, the patient creatinine is 0.52 Objective - Vital Signs Vital signs: Vital Signs Temp 98.2 F 04/16/23 15:00 Pulse 69 04/16/23 15:00 Resp 18 04/16/23 15:00 BP 106/53 04/16/23 15:00 Pulse Ox 98 04/16/23 15:00 FiO2 40 04/08/23 08:02 Intake & Output 04/15/23 04/16/23 04/16/23 18:59 06:59 18:59 Intake Total 690 318 Output Total 775 450 275 Balance -85 -450 43 Intake: Oral 690 318 Output: Urine 575 450 275 Urine/Stool Mix 200 Other: Voiding Method Indwelling Catheter Indwelling Catheter Indwelling Catheter # Bowel Movements 1 1 1 ABP, PAP, CO, CI - Last Documented Arterial Blood Pressure 143/42 - Exam GENERAL DESCRIPTION: An elderly female up in the chair in no distress RESPIRATORY SYSTEM: Unlabored breathing , decreased breath sounds at bases HEART: S1 S2 regular rate and rhythm , ABDOMEN: Soft , no tenderness EXTREMITIES: Bilateral lower extremity swelling no redness - Labs CBC & Chem 7: 04/15/23 04:03 04/16/23 07:05 Labs: Abnormal Lab Results - Last 24 Hours (Table) 04/15/23 04/16/23 04/16/23 Range/Units 19:54 05:59 07:05 Chloride 113 H (98-107) mmol/L Carbon Dioxide 17 L (22-30) mmol/L Glucose 124 H (74-99) mg/dL POC Glucose (mg/dL) 135 H 126 H (70-110) mg/dL Calcium 7.4 L (8.4-10.2) mg/dL 04/16/23 Range/Units 11:31 Chloride (98-107) mmol/L Carbon Dioxide (22-30) mmol/L Glucose (74-99) mg/dL POC Glucose (mg/dL) 164 H (70-110) mg/dL Calcium (8.4-10.2) mg/dL Assessment and Plan (1) Sepsis Current Visit: Yes Status: Acute Code(s): A41.9 - SEPSIS, UNSPECIFIED ORGANISM SNOMED Code(s): 59572950 (2) Gram-negative pneumonia Current Visit: Yes Status: Acute Code(s): J15.6 - PNEUMONIA DUE TO OTHER GRAM-NEGATIVE BACTERIA SNOMED Code(s): 192248829 (3) Leukocytosis Current Visit: Yes Status: Acute Code(s): D72.829 - ELEVATED WHITE BLOOD CELL COUNT, UNSPECIFIED SNOMED Code(s): 952957648 Plan: 1patient with a sepsis/septic shock in this patient with fever elevated white count hypertension tachycardia is source likely aspiration pneumonia likely gram-negative with a sputum currently growing Klebsiella and Enterobacter with some resistant pattern, patient subsequently did have a CT that heavy suspicious for ileus and concern for aspiration pneumonia that has been adequately treated 2-patient did have significant diarrhea, antibiotics were discontinued stool for C. diff is negative, patient diarrhea is slowing down continue with current symptomatic treatment 3the patient white count is trending down we will continue monitor the patient closely off antibiotic therapy Multiple family members at the bedside questions were answered Dictation was produced using [employer] dictation software. please excuse any grammatical, word or spelling errors. Time with Patient: Less than 30
[2023-04-16 16:40] LABS: Glucose,Whole Blood 167 mg/dL (70-110)
[2023-04-16] MEDS: RIVAROXABAN 20 MG TAB PO SCH (16:43)
[2023-04-16 20:15] LABS: Glucose,Whole Blood 174 mg/dL (70-110)
[2023-04-17 06:16] LABS: Glucose,Whole Blood 138 mg/dL (70-110)
[2023-04-17] MEDS: INSULIN ASPART (NovoLOG) 100 UNIT/ML VIAL SQ SCH ×2 (06:17→12:40)
[2023-04-17] MEDS: METOPROLOL TARTRATE 25 MG TAB PO SCH (09:34)
[2023-04-17] MEDS: AMIODARONE 200 MG TAB PO SCH (09:35)
[2023-04-17] MEDS: PANTOPRAZOLE 40 MG/10 ML VIAL IV SCH (09:35)
[2023-04-17] MEDS: lisinopriL 20 MG TAB PO SCH (09:35)
[2023-04-17] MEDS: SODIUM BICARBONATE TAB 650 MG TAB PO SCH (09:35)
[2023-04-17] MEDS: GABAPENTIN 100 MG CAP PO SCH (09:35)
--- NOTE | 2023-04-17 09:58 | P.PN ---
Subjective Progress Note Date: 04/17/23 Principal diagnosis: 1. L1-S1 spondylosis with stenosis 2. L1-S1 spondylolisthesis 3. Lower extremity radiculopathy 4. Low back pain 5. Lower extremity weakness Patient seen and examined this morning. Patient is awake and resting comfortably in bed. Patient is verbalizing her needs. Patient is able to move upper and lower extremities. She needs to have more aggressive therapy. If needed, please move patient to a room with a chao lift. Please reposition patient q 2 hours to prevent pressure to incision of the lumbar region. SCDs are present to lower extremities. Objective - Vital Signs Vital signs: Vital Signs Temp 97.7 F 04/16/23 20:00 Pulse 66 04/17/23 04:00 Resp 14 04/17/23 04:00 BP 136/80 04/17/23 04:00 Pulse Ox 97 04/17/23 04:00 FiO2 40 04/08/23 08:02 Intake & Output 04/16/23 04/17/23 04/17/23 18:59 06:59 18:59 Intake Total 618 Output Total 500 480 Balance 118 -480 Weight 84 kg Intake: Oral 618 Output: Urine 500 480 Other: Voiding Method Indwelling Catheter Indwelling Catheter # Bowel Movements 1 ABP, PAP, CO, CI - Last Documented Arterial Blood Pressure 143/42 - Exam Physical Examination General: The patient is awake and alert, in no acute distress Skin: Skin is warm and dry with no obvious rashes or lesions. There is +1 generalized edema in bilateral upper and lower extremities. Surgical dressing to the thoracolumbar region is CDI. No active drainage noted. Eye: Pupils are equal, round and reactive to light, extra-ocular movements are intact; there is normal conjunctiva bilaterally. Neck: The neck is supple, there is no tenderness and ROM intact. Cardiovascular: There is a regular rate and rhythm. No murmur, rub or gallop is appreciated. Gastrointestinal: Soft, non-distended, non-tender abdomen. Back: There is no tenderness to palpation in the midline, paralumbar, parath oracic or buttocks region. There is no obvious deformity . Musculoskeletal: ROM limited secondary to weakness. Muscle strength in bilateral upper extremities 4-/5, right lower extremity 3+/5, left lower extremity 3/5. Neurological: Negative Hoffmans, babinski, and clonus signs. Psychiatric: Cooperative, appropriate mood & affect. - Labs CBC & Chem 7: 04/15/23 04:03 04/16/23 07:05 Labs: Abnormal Lab Results - Last 24 Hours (Table) 04/16/23 04/16/23 04/16/23 Range/Units 07:05 11:31 16:37 Chloride 113 H (98-107) mmol/L Carbon Dioxide 17 L (22-30) mmol/L Glucose 124 H (74-99) mg/dL POC Glucose (mg/dL) 164 H 167 H (70-110) mg/dL Calcium 7.4 L (8.4-10.2) mg/dL 04/16/23 04/17/23 Range/Units 20:13 06:14 Chloride (98-107) mmol/L Carbon Dioxide (22-30) mmol/L Glucose (74-99) mg/dL POC Glucose (mg/dL) 174 H 138 H (70-110) mg/dL Calcium (8.4-10.2) mg/dL Assessment and Plan Assessment: Postop Day 19: Irrigation and Debridement with revision dural repair lumbar sp ine ; Postop Day 27: [id number] decompression and fusion 1. Aspiration Pneumonia 2. Post-op Ileus 3. Post-op anemia-resolved 4. L1-S1 spondylosis with stenosis 5. L1-S1 spondylolisthesis 6. Lower extremity radiculopathy 7. Low back pain 8. Lower extremity weakness Plan: -Appreciate eligibility consultant and team management. -Activity: Daily PT/OT, up to chair for all meals. Ambulate or stand at bedside QID. -Pain control: medications reviewed. Managed at this time. -Meds: reviewed -GI ppx: protonix, imodium -DVT PPX: SCDs and TEDS -Hygiene: Maintain dressing clean and dry. Meticulous cleaning after BMs away from the incision site -Dispo: Discharge to [facility] when medically stable. Patient is cleared from Orthopedic standpoint for discharge. *I reviewed and discussed this case with my attending Dr. Duong, whom has reviewed this chart and films and is in agreement with assessment and plan of care as outlined above. I have personally seen and examined the patient, performed the documentation and the assessment and plan as written. Number of minutes spent on the visit: 20m.
--- NOTE | 2023-04-17 10:36 | P.DS ---
Providers Date of admission: 03/21/23 06:59 Expected date of discharge: 04/17/23 Attending physician: Austin Randall MD Consults: 03/21/23 17:30 Consult Physician Stat Consulting Provider: Cayla Law Consult Reason/Comments: icu management Do you want consulting provider notified?: Already Contacted 03/21/23 17:31 Consult Physician Stat Consulting Provider: Debbie Faria Consult Reason/Comments: medical management Do you want consulting provider notified?: Already Contacted 03/29/23 13:18 Consult Physician Urgent Consulting Provider: Jhon Salgado Consult Reason/Comments: hypoxia Do you want consulting provider notified?: Yes 03/29/23 14:27 Consult Physician Routine Consulting Provider: Mele Mcmahon Consult Reason/Comments: post op ileus Do you want consulting provider notified?: Already Contacted 03/29/23 15:40 Consult Physician Stat Consulting Provider: Jhon Salgado Consult Reason/Comments: icu management, possible aspiration Do you want consulting provider notified?: Already Contacted 03/30/23 15:35 Consult Physician Routine Consulting Provider: Franklin Williamson Consult Reason/Comments: pneumonia vs meningitis Do you want consulting provider notified?: Yes Consult Physician Urgent Consulting Provider: Franklin Williamson Consult Reason/Comments: Sepsis, Aspiration pneumonia Do you want consulting provider notified?: Yes Primary care physician: Fred Stephens Hospital Course: Discharge Diagnosis: Multi-focal pneumonia,due to Klebsiella and Enterobacter complicated by septic shock Ventilator Dependent Acute Hypoxemic and Hypercarbic Respiratory Failure, ARDS Postoperative ileus Toxic metabolic encepahlopathy , possible hypoactive delirium Profound weakness, possibly critical illness myopathy Sepsis induced atrial fibrillation with RVR, paroxysmal Hypertension Status post T10 to pelvis decompression with fusion s/p CSF repair on 03/29 Acute blood loss anemia, stable Diabetes mellitus type 2 Dyslipidemia Metabolic acidosis, likely related diarrhea Hospital Course: Patient is a 72-year-old female with dyslipidemia, hypertension, [id number] diabetes mellitus type 2 who presented for elective T10 to pelvis decompression and fusion. She underwent successful decompression and fusion on 03/21, however, her postoperative hospital course was complicated by positional headache suspicious for CSF leak. Subsequently, she was taken back to the operating room on 03/29 for CSF repair. During intubation, patient was noted to have significant amounts of the aspirate emesis and oropharynx and after intubation she was noted to have 1.2 L of gastric output from OG tube. During the procedure she had increasing FiO2 requirements. Postoperatively she became hypotensive down to the 70s/30s and hypoxia down to the mid 60s despite FiO2 of 100% and PEEP of 12. She was transferred to the ICU and started on the Levophed. Differential diagnosis of septic shock secondary to meningitis versus aspiration pneumonia as well as hypovolemic shock secondary to CSF volume loss were considered. She was administered 3L of lactated Ringer's. Chest x-ray postoperatively on 03/29 demonstrated diffuse pulmonary edema with concern for ARDS superimposed on aspiration. Empiric antibiotics were started with vancomycin, ceftriaxone, Unasyn for empiric coverage of both meningitis and aspiration pneumonia/ Infectious disease was consulted. Sputum culture was positive for Klebsiella and Enterobacter with variable resistance. Pro- calcitonin was elevated at 6.7. Her CVP was monitored and remained stable between 13 and 15. Echocardiogram showed EF 60-65%, mild TR, and moderate pulmonary hypertension. Patient was noted to not have a bowel movement in approximately 5 days as of 03/29 and Gen. surgery was consulted for ileus. She developed sepsis induced atrial fibrillation with RVR, was started on amiodarone drip and converted back to normal sinus rhythm. She is placed on metoprolol once her pressor requirements started to decrease on 04/01, however, this was held after pressor requirements increased again on 04/03. Discussed with orthopedic surgery that no anticoagulation will be given for atrial fibrillation during the critical phase, but can be initiated once patient is able to be transitioned to the floor. She did require nimbex which was successfully stopped on 04/03/23, she was given relistor on 04/03/23 and started having bowel movements. She was able to come off levo on 04/04/23. After patient was weaned off of vasopressor agents she did have some episodes of hypertension requiring a demetri vidipine drip as she was unable to tolerate oral feedings. Patient continued to have bowel movements and tube feeds were started at trickle. She was successfully extubated on 04/08/23. She required a fecal management system, and her reglan was stopped. Mental status improved. NG tube is out, patient started oral intake. Diet advanced. Patient also started on anticoagulation. Completed course of antibiotics. Being discharged to subacute rehab. Patient seen and examined at bedside. Vital signs reviewed and stable. General: nontoxic, no distress, appears at stated age Cardiovascular: S1S2 reg, no murmur, positive posterior tibial pulse bilateral, Lungs: Coarse breath sounds bilateral, no rhonchi, no rales , no accessory muscle use Abdominal: soft, nontender to palpation, no guarding, no appreciable organomegaly Ext: no gross muscle atrophy, Anasarca , no contractures Neuro: moving all extremities Psych: Awake, alert and oriented x3 A total of 42 minutes of time were spent preparing this complex discharge summary. Patient was discharged on 04/17/23 at 9: 55. Patient Condition at Discharge: Stable Plan - Discharge Summary Discharge Rx Participant: No New Discharge Prescriptions: New Gabapentin [Neurontin] 100 mg PO TID #10 cap Pantoprazole [Protonix] 40 mg PO DAILY #14 tab Sodium Bicarbonate Tab 650 mg PO TID tab Acetaminophen Tab [Tylenol] 650 mg PO Q4HR PRN tab PRN Reason: Fever And/Or Mild Pain Rivaroxaban [Xarelto] 20 mg PO W/SUPPER tab lisinopriL [Zestril] 40 mg PO DAILY tab gemfibroziL [Lopid] 600 mg PO AC-BID #14 tab Amiodarone [Cordarone] 200 mg PO BID tab bisacodyL [Dulcolax] 10 mg RECTAL DAILY PRN suppositor PRN Reason: Constipation Metoprolol Tartrate [Lopressor] 25 mg PO BID tab Continue metFORMIN HCL 500 mg PO BID Calcium Citrate/Vitamin D3 [Citracal + D Maximum Caplet] 1 each PO DAILY Multivitamins, Thera [Multivitamin (formulary)] 1 tab PO DAILY Discontinued Lisinopril-Hctz 20-12.5 mg [Zestoretic 20-12.5] 1 tab PO QAM lisinopriL [Prinivil] 20 mg PO QAM gemfibroziL [Lopid] 600 mg PO BID Niacin 500 mg PO DAILY Nabumetone 750 mg PO BID Glucosamine/Chondr Leon A Sod [Osteo Bi-Flex Caplet] 1 each PO BID Discharge Medication List Calcium Citrate/Vitamin D3 [Citracal + D Maximum Caplet] 1 each PO DAILY 03/15/23 [History] Multivitamins, Thera [Multivitamin (formulary)] 1 tab PO DAILY 03/15/23 [History] metFORMIN HCL 500 mg PO BID 03/15/23 [History] Acetaminophen Tab [Tylenol] 650 mg PO Q4HR PRN tab 04/17/23 [Rx] Amiodarone [Cordarone] 200 mg PO BID tab 04/17/23 [Rx] Gabapentin [Neurontin] 100 mg PO TID #10 cap 04/17/23 [Rx] Metoprolol Tartrate [Lopressor] 25 mg PO BID tab 04/17/23 [Rx] Pantoprazole [Protonix] 40 mg PO DAILY #14 tab 04/17/23 [Rx] Rivaroxaban [Xarelto] 20 mg PO W/SUPPER tab 04/17/23 [Rx] Sodium Bicarbonate Tab 650 mg PO TID tab 04/17/23 [Rx] bisacodyL [Dulcolax] 10 mg RECTAL DAILY PRN suppositor 04/17/23 [Rx] gemfibroziL [Lopid] 600 mg PO AC-BID #14 tab 04/17/23 [Rx] lisinopriL [Zestril] 40 mg PO DAILY tab 04/17/23 [Rx] Follow up Appointment(s)/Referral(s): Lei Duong DO [Doctor of Osteopathic Medicine] - 1 Week Patient Instructions/Handouts: ARDS (Acute Respiratory Distress Syndrome) (DC), Aspiration Pneumonia (DC) Activity/Diet/Wound Care/Special Instructions: Please see your PCP and orthospine. Discharge Disposition: TRANSFER TO SNF/ECF
[2023-04-17] MEDS: HYDROmorphone 0.5 MG/0.5 ML SYRINGE IVP PRN (11:39)
--- NOTE | 2023-04-17 11:53 | P.PN ---
Subjective Progress Note Date: 04/17/23 04/09/2023, the patient is extubated on oxygen at 2 L/m nasal cannula. Profoundly weak, still lethargic, follows simple commands and unable to move her arms, she is able to wiggle her toes and she does have facial expression in response to questions. No signs of any respiratory distress. Chest x-ray is showing stable but the pulmonary infiltrates post-ARDS. She does have a cough and a gag. NG tube was kept in place and the patient started having diarrhea as of yesterday. The fecal management system was inserted and the patient has produced approximately 300 mL of stool since yesterday. We'll check stool for C. diff. At the same time, she is running higher blood pressure post extubation. The patient was started on Cleviprex dripp and this was discontinued this morning. The patientis running higher blood pressure. She did have few episodes of atrial fibrillation overnight and currently her rhythm is back to sinus.she remains on TPN for nutritional support pH remains on IV steroids. She remains on an insulin drip currently running at 10 units an hour. She continues to diabetes. She has another negative fluid balance of at least 2 L over the past 24 hours. The white cell count is at 12.4, hemoglobin is at 9.8. BUN is 33 with a creatinine of 0.6 and a sodium level is at 143 with a potassium level of 4.1. The patient is on IV Zosyn that was started on 04/03/2023 and the patient has nearly completed her course. 04/10/2023, patient remains in the ICU, remains extubated, she is on 2 L nasal cannula, requiring insulin drip at 9 units per hour, she is also on TPN, 45 mL per hour. Continues to have a nasogastric tube in place, and she is receiving trickle feedings, 10 mL per hour. Patient remains on Zosyn, continues to have difficulty with swallowing and with her speech, patient is to have speech and swallow evaluation today. Continues to have upper extremities weakness, not in any form of respiratory distress. She does have a cough reflex and a gag reflex. C. difficile screening was negative WBC count today is 8.5 hemoglobin is 9.8, basic metabolic profile is normal with normal electrolytes and normal renal profile. Fecal management system remains in place. Physical therapy is continued performing range of motion exercises for her extremities and joints. Patient is marginal at best. Patient was reevaluated 04/11/2023, remains in the ICU, basically about the same, she is on 2 L nasal cannula, does not seem to be in any distress, very by lysing better today at patient could say hello without any difficulty. Tends not to speak unless asked to do so. Otherwise she is using facial expressions. And using her hands. Patient remained generally weak, nonetheless she is able to move her upper and lower extremities. Continues to be followed by physical therapy and speech therapy. WBC count today is 10.7 hemoglobin is 9.6. Basic metabolic profile is normal. Chest x-ray showed minimal pulmonary vascular congestion and atelectasis especially at the left base. reevaluated today on 04/12/2023 patient may is in the ICU as an overflow. She is very comfortable, not in any distress, patient is on room air, still receiving enteral feeding at 60 ML per hour, chest x-ray showing more left basilar atelectasis, patient is doing well with incentive spirometry, continues to have significant amount of diarrhea. Hence Imodium was added today. She was supposed to have another swallow evaluation today, and possibly decide on removing the nasogastric tube if the patient passes the swallow evaluation. Remained generally weak especially in upper and lower extremities. Continues to have a central line in the right IJ area, this will be removed today since at peripheral IV access was established. Labs today showed a relatively normal CBC, normal electrolytes, normal renal profile. Reevaluated today on 04/13/2023, remains in the ICU as an overflow. Patient is doing well overall, she is getting a bit stronger nonetheless remained generally weak. Patient is able to swallow, she passed a swallow evaluation, and now she is being fed, and her nasogastric tube has been removed. Patient is still having diarrhea, and she remains on Imodium. Undergoing physical therapy and range of motion therapy, patient will need a care home course of tr eatment/physical therapy, and eventually she needs to be considered for rehab in [place]. CBC today is basically unremarkable a bit of leukocytosis noted WBC count of 15.7 and electrolytes are normal renal profile is normal, blood sugar is 159 The patient is seen today 04/14/2023 in follow-up on the selective care unit. She was transferred out of the intensive care unit yesterday. She is sitting up in bed. More awake and alert today. She is maintaining O2 saturations in the 90s on room air. She has a dry nonproductive cough. She remains afebrile. Hemodynamically stable. Computed tomography scan of the brain revealed no acute intracranial process. Barium swallow today revealed normal deglutition study. Sodium 143. Potassium 4.4. Bicarb 19. BUN 16. Creatinine 0.54. Glucose 137. She remains on bronchodilators. Encouraged increased use of the incentive spirometer. Anticoagulated with Xarelto. Completed antibiotics. The patient is seen today 04/15/2023 in follow-up on the selective care unit. He is resting comfortably in bed. Awake and alert in no acute distress. Feel ing a bit stronger each day. Working with physical therapy. Maintaining good O2 saturations up to 100% on room air. Afebrile. Hemodynamically stable. She is status post 3 units of packed red blood cells this admission. Current hemoglobin 9.9. Platelets 278. White count 11.9. Sodium 138. Potassium 3.9. Bicarb 16. BUN 15. Creatinine 0.52. Glucose 121. She remains anticoagulated with Xarelto. Protonix for GI prophylaxis. Bronchodilators as needed. The patient is seen today 04/16/2023 in follow-up on the selective care unit. She is currently resting comfortably in bed. Awake and alert in no acute distress. Getting stronger daily. Maintaining good O2 saturations in the high 90s on room air. Afebrile. Hemodynamically stable. Sodium 137. Potassium 3.5. Bicarb 17. BUN 12. Creatinine 0.52. The patient is seen today 04/17/2023 in follow-up on the selective care unit. She is awake and alert in no acute distress. Feeling stronger each day. Blood sugar 138. Continues to do well on room air. Anticoagulated with Xarelto. Objective - Vital Signs Vital signs: Vital Signs Temp 98.5 F 04/17/23 08:00 Pulse 71 04/17/23 08:00 Resp 16 04/17/23 08:00 BP 122/66 04/17/23 08:00 Pulse Ox 97 04/17/23 08:24 FiO2 40 04/08/23 08:02 Intake & Output 04/16/23 04/17/23 04/17/23 18:59 06:59 18:59 Intake Total 618 128 Output Total 500 480 Balance 118 -480 128 Weight 84 kg Intake: IV 10 Invasive Line 1 10 Oral 618 118 Output: Urine 500 480 Other: Voiding Method Indwelling Catheter Indwelling Catheter Indwelling Catheter # Bowel Movements 1 1 ABP, PAP, CO, CI - Last Documented Arterial Blood Pressure 143/42 - Exam GENERAL EXAM: Alert, pleasant 73-year-old female, on room air, comfortable in no apparent distress. HEAD: Normocephalic. EYES: Normal reaction of pupils, equal size. NOSE: Clear with pink turbinates. THROAT: No erythema or exudates. NECK: No masses, no JVD. CHEST: No chest wall deformity. LUNGS: Equal air entry with no crackles, wheeze, rhonchi or dullness. CVS: S1 and S2 normal with no audible murmur, regular rhythm. ABDOMEN: No hepatosplenomegaly, normal bowel sounds, no guarding or rigidity. SPINE: No scoliosis or deformity SKIN: No rashes CENTRAL NERVOUS SYSTEM: Generalized weakness. No focal deficits, tone is normal in all 4 extremities. EXTREMITIES: There is no peripheral edema. No clubbing, no cyanosis. Peripheral pulses are intact. - Labs CBC & Chem 7: 04/15/23 04:03 04/16/23 07:05 Labs: Abnormal Lab Results - Last 24 Hours (Table) 04/16/23 04/16/23 04/17/23 Range/Units 16:37 20:13 06:14 POC Glucose (mg/dL) 167 H 174 H 138 H (70-110) mg/dL Assessment and Plan Assessment: Lumbar spondylosis and spondylolisthesis Postop Day 19: Irrigation and Debridement with revision dural repair lumbar spine; Postop Day 27: [id number] decompression and fusion Acute hypoxic respiratory failure, this was subsequent to repair of a dural tear and secondary to large volume gastric aspiration requiring intubation and mechanical ventilation. Patient was extubated on 04/09/2023, continues to tolerate the extubation. 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 Number of minutes spent on the visit: 10.
[2023-04-17 11:57] LABS: Glucose,Whole Blood 131 mg/dL (70-110)
[2023-04-17 12:39] VITALS: BP 122/54; PULSE 70; RESP 15; TEMP 97.9
[2023-04-17 13:43] VITALS: BMI 30.3
--- NOTE | 2023-04-17 15:30 | P.PN ---
Progress Note - Text Progress Note Date: 04/17/23 The patient is resting in bed. She is eating regular diet. Her fecal management system was was removed yesterday. Patient denies any significant abdominal pain. Vital signs appear stable. Abdomen is soft. Resolving ileus. Patient will continue supportive care.
== END 2023-04-17 16:45 | DRG 453 ==
LOC: 2ORMAIN 06:59 → EDSTATUS 07:30 → 2SICU 16:11 → 4SSUR 03-23 15:41 → 2SICU 03-29 14:16 → 3SCARD 04-13 16:54
PROVIDERS: ADMIT Student in an Organized Health Care Education/Training Program; ATTEND Student in an Organized Health Care Education/Training Program
PROC: 0RG70AJ Fusion of 2 to 7 Thoracic Vertebral Joints with Interbody Fusion Device, Posterior Approach, Anterior Column, Open Approach (ICD-10-PCS; 2023-03-21)
PROC: 0QS00ZZ Reposition Lumbar Vertebra, Open Approach (ICD-10-PCS; 2023-03-21)
PROC: 0SG10AJ Fusion of 2 or more Lumbar Vertebral Joints with Interbody Fusion Device, Posterior Approach, Anterior Column, Open Approach (ICD-10-PCS; 2023-03-21)
PROC: XRGD0R7 Fusion of Lumbosacral Joint using Custom-Made Anatomically Designed Interbody Fusion Device, Open Approach, New Technology Group 7 (ICD-10-PCS; 2023-03-21)
PROC: 0SG3071 Fusion of Lumbosacral Joint with Autologous Tissue Substitute, Posterior Approach, Posterior Column, Open Approach (ICD-10-PCS; 2023-03-21)
PROC: 0RGA0AJ Fusion of Thoracolumbar Vertebral Joint with Interbody Fusion Device, Posterior Approach, Anterior Column, Open Approach (ICD-10-PCS; 2023-03-21)
PROC: 0PH404Z Insertion of Internal Fixation Device into Thoracic Vertebra, Open Approach (ICD-10-PCS; 2023-03-21)
PROC: 01NB0ZZ Release Lumbar Nerve, Open Approach (ICD-10-PCS; 2023-03-21)
PROC: 01NR0ZZ Release Sacral Nerve, Open Approach (ICD-10-PCS; 2023-03-21)
PROC: 00UT07Z Supplement Spinal Meninges with Autologous Tissue Substitute, Open Approach (ICD-10-PCS; 2023-03-21)
PROC: 8E0YXBZ Computer Assisted Procedure of Lower Extremity (ICD-10-PCS; 2023-03-21)
PROC: 30233N1 Transfusion of Nonautologous Red Blood Cells into Peripheral Vein, Percutaneous Approach (ICD-10-PCS; 2023-03-21)
PROC: 0SG1071 Fusion of 2 or more Lumbar Vertebral Joints with Autologous Tissue Substitute, Posterior Approach, Posterior Column, Open Approach (ICD-10-PCS; principal; 2023-03-21 09:00)
PROC: 0QB00ZZ Excision of Lumbar Vertebra, Open Approach (ICD-10-PCS; 2023-03-29)
PROC: 00U20KZ Supplement Dura Mater with Nonautologous Tissue Substitute, Open Approach (ICD-10-PCS; 2023-03-29)
PROC: 30233J1 Transfusion of Nonautologous Serum Albumin into Peripheral Vein, Percutaneous Approach (ICD-10-PCS; 2023-03-29)
PROC: 3E033XZ Introduction of Vasopressor into Peripheral Vein, Percutaneous Approach (ICD-10-PCS; 2023-03-29)
PROC: 5A1955Z Respiratory Ventilation, Greater than 96 Consecutive Hours (ICD-10-PCS; 2023-03-29)
PROC: 0BH18EZ Insertion of Endotracheal Airway into Trachea, Via Natural or Artificial Opening Endoscopic (ICD-10-PCS; 2023-03-29)
PROC: 0D9670Z Drainage of Stomach with Drainage Device, Via Natural or Artificial Opening (ICD-10-PCS; 2023-03-29)
PROC: 3E0G76Z Introduction of Nutritional Substance into Upper GI, Via Natural or Artificial Opening (ICD-10-PCS; 2023-03-30)
PROC: 03HY32Z Insertion of Monitoring Device into Upper Artery, Percutaneous Approach (ICD-10-PCS; 2023-04-02)
PROC: 4A133B1 Monitoring of Arterial Pressure, Peripheral, Percutaneous Approach (ICD-10-PCS; 2023-04-02)
PROC: 4A133J1 Monitoring of Arterial Pulse, Peripheral, Percutaneous Approach (ICD-10-PCS; 2023-04-02)
PROC: 03HY32Z Insertion of Monitoring Device into Upper Artery, Percutaneous Approach (ICD-10-PCS; 2023-04-03)
PROC: 4A133B1 Monitoring of Arterial Pressure, Peripheral, Percutaneous Approach (ICD-10-PCS; 2023-04-03)
PROC: 4A133J1 Monitoring of Arterial Pulse, Peripheral, Percutaneous Approach (ICD-10-PCS; 2023-04-03)
PROC: 3E0436Z Introduction of Nutritional Substance into Central Vein, Percutaneous Approach (ICD-10-PCS; 2023-04-06)
DX: M47.26 Other spondylosis with radiculopathy, lumbar region (principal); A41.50 Gram-negative sepsis, unspecified; J69.0 Pneumonitis due to inhalation of food and vomit; R65.21 Severe sepsis with septic shock; J80 Acute respiratory distress syndrome; J15.6 Pneumonia due to other Gram-negative bacteria; R57.1 Hypovolemic shock; G03.9 Meningitis, unspecified; G62.81 Critical illness polyneuropathy; N17.9 Acute kidney failure, unspecified; K56.7 Ileus, unspecified; K91.89 Other postprocedural complications and disorders of digestive system; E87.4 Mixed disorder of acid-base balance; G96.09 Other spinal cerebrospinal fluid leak; G96.11 Dural tear; D62 Acute posthemorrhagic anemia; Z16.11 Resistance to penicillins; I27.20 Pulmonary hypertension, unspecified; E11.43 Type 2 diabetes mellitus with diabetic autonomic (poly)neuropathy; I48.0 Paroxysmal atrial fibrillation; E11.65 Type 2 diabetes mellitus with hyperglycemia; I95.81 Postprocedural hypotension; G72.89 Other specified myopathies; R13.10 Dysphagia, unspecified; M41.56 Other secondary scoliosis, lumbar region; D63.8 Anemia in other chronic diseases classified elsewhere; E87.8 Other disorders of electrolyte and fluid balance, not elsewhere classified; I10 Essential (primary) hypertension; I07.1 Rheumatic tricuspid insufficiency; M48.062 Spinal stenosis, lumbar region with neurogenic claudication; M47.27 Other spondylosis with radiculopathy, lumbosacral region; M48.07 Spinal stenosis, lumbosacral region; M25.48 Effusion, other site; M25.78 Osteophyte, vertebrae; G89.29 Other chronic pain; E78.5 Hyperlipidemia, unspecified; M43.16 Spondylolisthesis, lumbar region; M43.17 Spondylolisthesis, lumbosacral region; M19.90 Unspecified osteoarthritis, unspecified site; E86.1 Hypovolemia; E83.42 Hypomagnesemia; T38.0X5A Adverse effect of glucocorticoids and synthetic analogues, initial encounter; B96.1 Klebsiella pneumoniae [K. pneumoniae] as the cause of diseases classified elsewhere; B96.89 Other specified bacterial agents as the cause of diseases classified elsewhere; E87.6 Hypokalemia; K57.30 Diverticulosis of large intestine without perforation or abscess without bleeding; K31.84 Gastroparesis; R47.9 Unspecified speech disturbances; Y83.8 Other surgical procedures as the cause of abnormal reaction of the patient, or of later complication, without mention of misadventure at the time of the procedure; Y92.234 Operating room of hospital as the place of occurrence of the external cause; Z96.641 Presence of right artificial hip joint; Z22.321 Carrier or suspected carrier of Methicillin susceptible Staphylococcus aureus; Z79.899 Other long term (current) drug therapy; Z79.1 Long term (current) use of non-steroidal anti-inflammatories (NSAID); Z79.84 Long term (current) use of oral hypoglycemic drugs; Z88.1 Allergy status to other antibiotic agents; Z91.048 Other nonmedicinal substance allergy status; Z88.2 Allergy status to sulfonamides
CPT/HCPCS: 36410; 36600; 70450; 71045; 71275; 72100; 72128; 72131; 74018; 74176; 74177; 74230; 76937; 80048; 80053; 80076; 80202; 81001; 82040; 82330; 82533; 82550; 82565; 82607; 82728; 82747; 82805; 83540; 83550; 83605; 83615; 83735; 83880; 84100; 84132; 84145; 84478; 85025; 85027; 85379; 86140; 86850; 86900; 86901; 86920; 87040; 87070; 87077; 87086; 87186; 87205; 87324; 93005; 93306; 94002; 94003; 94640; 94760

== ENCOUNTER 2023-07-24 16:35 | Inpatient (IN) | payer MEDICARE, OTHER ==
--- NOTE | 2023-07-24 17:55 | XR ---
EXAMINATION TYPE: XR chest 2V DATE OF EXAM: 07/24/2023 5:51 PM CLINICAL INDICATION:Female, 73 years old with history of weakness; COMPARISON: Chest radiographs from 04/12/2023 TECHNIQUE: XR chest 2V Frontal and lateral views of the chest. FINDINGS: Lungs/Pleura: There is no evidence of pleural effusion, focal consolidation, or pneumothorax. Pulmonary vascularity: Unremarkable. Heart/mediastinum: Cardiomediastinal silhouette is unremarkable. Musculoskeletal: No acute osseous pathology. Post surgical changes to the spine with hardware appeari ng intact. IMPRESSION: No acute cardiopulmonary disease/process.
[2023-07-24 18:30] LABS: Basophils % (A) 0 %; Eosinophils # (A) 0.1 k/uL (0-0.7); Eosinophils % (A) 1 %; HCT 29.3 % (34.0-46.0); HGB 9.4 gm/dL (11.4-16.0); Hypochromasia Slight; Lymphocytes % (A) 6 %; MCH 31.1 pg (25.0-35.0); MCHC 32.1 g/dL (31.0-37.0); MCV 96.7 fL (80.0-100.0); Mean Platelet Volume 7.3; Monocytes # (A) 0.4 k/uL (0-1.0); Monocytes % (A) 3 %; Neutrophils # (A) 13.7 k/uL (1.3-7.7); Neutrophils % (A) 88 %; Platelet Count 466 k/uL (150-450); RBC 3.03 m/uL (3.80-5.40); RDW 14.8 % (11.5-15.5); WBC 15.5 k/uL (3.8-10.6)
[2023-07-24 18:39] LABS: INR 1.2 (<1.2); Prothrombin Time 12.6 sec (10.0-12.5)
--- NOTE | 2023-07-24 19:08 | ED ---
General Adult HPI - General Chief complaint: Weakness Stated complaint: Weakness-sent from drs Time Seen by Provider: 07/24/23 16:50 Source: patient, RN notes reviewed Mode of arrival: ambulatory Limitations: no limitations - History of Present Illness Initial comments: 73-year-old female with past medical history significant for diabetes mellitus, hypertension, hyperlipidemia presents to the emergency department with a chief complaint of generalized weakness for the last few days. She reports that she was seen by her PCP earlier today who was unable to obtain lab work however he believes she was anemic. She reports worsening weakness upon exertion. She does report bilateral leg swelling. She does report a recent fall last week however she denies hitting her head or loss consciousness. She denies any known fevers, chills, cough, chest pain, shortness of breath, nausea or vomiting, abdominal pain, dysuria, hematuria. Of note she does report she had a hoarse voice for approximately a week and half. - Related Data Home Medications Medication Instructions Recorded Confirmed Calcium Citrate/Vitamin D3 1 tab PO DAILY 03/15/23 07/24/23 [Citracal + D Maximum Caplet] metFORMIN HCL 500 mg PO DAILY 03/15/23 07/24/23 Ferrous Sulfate [Iron] 325 mg PO MOWEFR 05/07/23 07/24/23 Cyanocobalamin [Vitamin B-12] 500 mcg PO DAILY 07/24/23 07/24/23 Folic Acid 1 mg PO DAILY 07/24/23 07/24/23 Metoprolol Tartrate [Lopressor] 12.5 mg PO BID 07/24/23 07/24/23 Niacin 500 mg PO DAILY 07/24/23 07/24/23 Previous Rx's Medication Instructions Recorded Amiodarone [Cordarone] 200 mg PO BID tab 04/17/23 Pantoprazole [Protonix] 40 mg PO DAILY #14 tab 04/17/23 Rivaroxaban [Xarelto] 20 mg PO W/SUPPER tab 04/17/23 gemfibroziL [Lopid] 600 mg PO AC-BID #14 tab 04/17/23 Allergies Allergy/AdvReac Type Severity Reaction Status Date / Time ciprofloxacin [From Cipro] Allergy Rash/Hives Verified 07/24/23 20:46 poison jarek extract Allergy Rash/Hives Verified 07/24/23 20:46 Sulfa (Sulfonamide Allergy Unknown Verified 07/24/23 20:46 Antibiotics) Review of Systems ROS Statement: Those systems with pertinent positive or pertinent negative responses have been documented in the HPI. ROS Other: All systems not noted in ROS Statement are negative. Past Medical History Past Medical History: Diabetes Mellitus, Hyperlipidemia, Hypertension, Musculoskeletal Disorder, Osteoarthritis (OA) Additional Past Medical History / Comment(s): Degenerative Disc Disease. History of Any Multi-Drug Resistant Organisms: None Reported Past Surgical History: Cholecystectomy Additional Past Surgical History / Comment(s): Dental work, cataract surgery. Past Anesthesia/Blood Transfusion Reactions: No Reported Reaction Past Psychological History: No Psychological Hx Reported Smoking Status: Never smoker Past Alcohol Use History: Occasional Past Drug Use History: None Reported - Past Family History Brother(s) Family Medical History: Cancer Additional Family Medical History / Comment(s): Lung cancer. Father Family Medical History: Cancer Additional Family Medical History / Comment(s): Melanoma. General Exam - General Exam Comments Initial Comments: General: Alert, in no acute distress Head: atraumatic normocephalic. Eyes PERRL, EOMI intact, mucous membranes moist Respiratory: Lungs clear to auscultation bilaterally Cardiovascular: Heart rate regular rate and rhythm Abdominal: Soft without guarding or rebound Extremities: Normal inspection with full range of motion and normal capillary refill, 2+ pedal edema Neuroogic: alert and oriented 3, CN II-XII intact, able to ambulate with steady gait Skin: warm dry and intact with normal color Limitations: no limitations Course Vital Signs 07/24/23 07/24/23 07/24/23 16:37 19:00 19:30 Temperature 97.4 F L Pulse Rate 78 70 71 Respiratory 18 18 18 Rate Blood Pressure 156/75 129/49 126/54 O2 Sat by Pulse 100 100 99 Oximetry 07/24/23 07/24/23 07/24/23 20:00 21:30 22:30 Temperature Pulse Rate 72 70 75 Respiratory 17 17 13 Rate Blood Pressure 127/54 136/55 124/55 O2 Sat by Pulse 100 98 98 Oximetry - Reevaluation(s) Reevaluation #1: 07/24/23 19:08 Patient reevaluated. Patient aware awaiting laboratory and imaging results. Reevaluation #2: 07/24/23 21:40 [place] discussed with madison Gu who agrees and accepts the patient for admission. EKG Findings - EKG Comments: EKG Findings:: I interpreted the following: EKG performed at 16:46 rate 74 bpm normal sinus rhythm [place] interval 185, QRS 3, QT/QTc 387/414 Medical Decision Making - Medical Decision Making Was pt. sent in by a medical professional or institution (RUPERT Diaz, SALES OPERATIONS MANAGER, urgent care, hospital, or long term...) When possible be specific @ -[No] Did you speak to anyone other than the patient for history (EMS, parent, family, police, friend...)? What history was obtained from this source @ Did you review nursing and triage notes (agree or disagree)? Why? @ -[I reviewed and agree with nursing and triage notes] Were old charts reviewed (outside hosp., previous admission, EMS record, old EKG, old radiological studies, urgent care reports/EKG's, long term records)? Report findings @ -[No old charts were reviewed] Differential Diagnosis (chest pain, altered mental status, abdominal pain women, abdominal pain men, vaginal bleeding, weakness, fever, dyspnea, syncope, headache, dizziness, GI bleed, back pain, seizure, CVA, palpatations, mental health, musculoskeletal)? @ -[not applicable] EKG interpreted by me (3pts min.). @ -[As above] X-rays interpreted by me (1pt min.). @ -Yes CT interpreted by me (1pt min.). @ -[None done] U/S interpreted by me (1pt. min.). @ -[None done] What testing was considered but not performed or refused? (CT, X-rays, U/S, labs)? Why? @ -[None] What meds were considered but not given or refused? Why? @ -[None] Did you discuss the management of the patient with other professionals (professionals i.e. RUPERT Diaz, SALES OPERATIONS MANAGER, lab, RT, psych nurse, social insurance administrator, air brake tester, teacher, chief communications officer, director of casework)? Give summary @ - Case discussed with Dr. Ag, who agrees and accepts the patient for further observation Was smoking cessation discussed for >3mins.? @ -[No] Was critical care preformed (if so, how long)? @ -[No] Were there social determinants of health that impacted care today? How? (Homelessness, low income, unemployed, alcoholism, drug addiction, transportation, low edu. Level, literacy, decrease access to med. care, intermediate, rehab)? @ -[No] Was there de-escalation of care discussed even if they declined (Discuss DNR or withdrawal of care, Hospice)? DNR status @ -[No] What co-morbidities impacted this encounter? (DM, HTN, Smoking, COPD, CAD, C ancer, CVA, ARF, Chemo, Hep., AIDS, mental health diagnosis, sleep apnea, morbid obesity)? @ -[None] Was patient admitted / discharged? Hospital course, mention meds given and route, prescriptions, significant lab abnormalities, going to OR and other pertinent info. @ -Admission. This is a 73-year-old female with a past medical h istory significant for hypertension, hyperlipidemia and diabetes mellitus who presents the emergency department with generalized weakness and fatigue. Patient had a thorough history and physical exam performed. Heart rate regular rate and rhythm, but auscultation bilaterally abdomen is soft and nontender. Bilateral lower extremities with 2+ pitting edema. Patient had laboratory studies which revealed WBC 15.5, hemoglobin 9.4.466 sodium 134, potassium 4.0 28, creatinine 1.3 to negative troponin. BNP 900 Urinalysis large amount of leukocyte esterase, 100 WBCs Chest x-ray is negative for any focal consolidation or cardiomegaly Discuss results in detail with the patient verbalized understanding all questions were addressed. She is agreeable with the plan for admission. Case is discussed with madison Cho who agrees and accepts the patient for further observation. Patient started on Rocephin. Case is discussed with RAJESH Melgoza who agrees with plan of care Undiagnosed new problem with uncertain prognosis? @ -[No] Drug Therapy requiring intensive monitoring for toxicity (Heparin, Nitro, Insulin, Cardizem)? @ -[No] Were any procedures done? @ -[No] Diagnosis/symptom? @ -Weakness - UTI - Leukocytosis Acute, or Chronic, or Acute on Chronic? @ -Acute Uncomplicated (without systemic symptoms) or Complicated (systemic symptoms)? @ -Uncomplicated Side effects of treatment? @ -[No] Exacerbation, Progression, or Severe Exacerbation? @ -[No] Poses a threat to life or bodily function? How? (Chest pain, [place], [place], pneumonia, PE, COPD, DKA, ARF, appy, cholecystitis, CVA, Diverticulitis, Homicidal, Suicidal, threat to staff... and all critical care pts) @ -Low likelihood - Lab Data Result diagrams: 07/24/23 17:17 07/24/23 17:17 Lab Results 07/24/23 07/24/23 07/24/23 Range/Units 17:17 17:17 17:17 WBC 15.5 H (3.8-10.6) k/uL RBC 3.03 L (3.80-5.40) m/uL Hgb 9.4 L (11.4-16.0) gm/dL Hct 29.3 L (34.0-46.0) % MCV 96.7 (80.0-100.0) fL MCH 31.1 (25.0-35.0) pg MCHC 32.1 (31.0-37.0) g/dL RDW 14.8 (11.5-15.5) % Plt Count 466 H (150-450) k/uL MPV 7.3 Neutrophils % 88 % Lymphocytes % 6 % Monocytes % 3 % Eosinophils % 1 % Basophils % 0 % Neutrophils # 13.7 H (1.3-7.7) k/uL Lymphocytes # 1.0 (1.0-4.8) k/uL Monocytes # 0.4 (0-1.0) k/uL Eosinophils # 0.1 (0-0.7) k/uL Basophils # 0.0 (0-0.2) k/uL Hypochromasia Slight PT 12.6 H (10.0-12.5) sec INR 1.2 H (<1.2) APTT 27.0 (22.0-30.0) sec Sodium (137-145) mmol/L Potassium (3.5-5.1) mmol/L Chloride (98-107) mmol/L Carbon Dioxide (22-30) mmol/L Anion Gap mmol/L BUN (7-17) mg/dL Creatinine (0.52-1.04) mg/dL Est GFR (CKD-EPI)AfAm (>60 ml/min/1.73 sqM) Est GFR (CKD-EPI)NonAf (>60 ml/min/1.73 sqM) Glucose (74-99) mg/dL Calcium (8.4-10.2) mg/dL Total Bilirubin (0.2-1.3) mg/dL AST (14-36) U/L ALT (4-34) U/L Alkaline Phosphatase (38-126) U/L Troponin I (0.000-0.034) ng/mL NT-Pro-B Natriuret Pep pg/mL Total Protein (6.3-8.2) g/dL Albumin (3.5-5.0) g/dL Urine Color Light Yellow Urine Appearance Cloudy H (Clear) Urine pH 6.5 (5.0-8.0) Ur Specific [place] 1.015 (1.001-1.035) Urine Protein 2+ H (Negative) Urine Glucose (UA) Negative (Negative) Urine Ketones Negative (Negative) Urine Blood Large H (Negative) Urine Nitrite Negative (Negative) Urine Bilirubin Negative (Negative) Urine Urobilinogen <2.0 (<2.0) mg/dL Ur Leukocyte Esterase Large H (Negative) Urine RBC 27 H (0-5) /hpf Urine WBC 109 H (0-5) /hpf Urine WBC Clumps Occasional H (None) /hpf Ur Squamous Epith Cells 20 H (0-4) /hpf Urine Bacteria Many H (None) /hpf Urine Mucus Rare H (None) /hpf Influenza Type A (PCR) (Not Detectd) Influenza Type B (PCR) (Not Detectd) RSV (PCR) (Not Detectd) SARS-CoV-2 (PCR) (Not Detectd) 07/24/23 07/24/23 07/24/23 Range/Units 17:17 17:17 17:17 WBC (3.8-10.6) k/uL RBC (3.80-5.40) m/uL Hgb (11.4-16.0) gm/dL Hct (34.0-46.0) % MCV (80.0-100.0) fL MCH (25.0-35.0) pg MCHC (31.0-37.0) g/dL RDW (11.5-15.5) % Plt Count (150-450) k/uL MPV Neutrophils % % Lymphocytes % % Monocytes % % Eosinophils % % Basophils % % Neutrophils # (1.3-7.7) k/uL Lymphocytes # (1.0-4.8) k/uL Monocytes # (0-1.0) k/uL Eosinophils # (0-0.7) k/uL Basophils # (0-0.2) k/uL Hypochromasia PT (10.0-12.5) sec INR (<1.2) APTT (22.0-30.0) sec Sodium 134 L (137-145) mmol/L Potassium 4.0 (3.5-5.1) mmol/L Chloride 107 (98-107) mmol/L Carbon Dioxide 15 L (22-30) mmol/L Anion Gap 12 mmol/L BUN 28 H (7-17) mg/dL Creatinine 1.32 H (0.52-1.04) mg/dL Est GFR (CKD-EPI)AfAm 46 (>60 ml/min/1.73 sqM) Est GFR (CKD-EPI)NonAf 40 (>60 ml/min/1.73 sqM) Glucose 135 H (74-99) mg/dL Calcium 8.9 (8.4-10.2) mg/dL Total Bilirubin 0.5 (0.2-1.3) mg/dL AST 18 (14-36) U/L ALT 13 (4-34) U/L Alkaline Phosphatase 93 (38-126) U/L Troponin I <0.012 (0.000-0.034) ng/mL NT-Pro-B Natriuret Pep 900 pg/mL Total Protein 6.2 L (6.3-8.2) g/dL Albumin 3.0 L (3.5-5.0) g/dL Urine Color Urine Appearance (Clear) Urine pH (5.0-8.0) Ur Specific [place] (1.001-1.035) Urine Protein (Negative) Urine Glucose (UA) (Negative) Urine Ketones (Negative) Urine Blood (Negative) Urine Nitrite (Negative) Urine Bilirubin (Negative) Urine Urobilinogen (<2.0) mg/dL Ur Leukocyte Esterase (Negative) Urine RBC (0-5) /hpf Urine WBC (0-5) /hpf Urine WBC Clumps (None) /hpf Ur Squamous Epith Cells (0-4) /hpf Urine Bacteria (None) /hpf Urine Mucus (None) /hpf Influenza Type A (PCR) Not Detected (Not Detectd) Influenza Type B (PCR) Not Detected (Not Detectd) RSV (PCR) Not Detected (Not Detectd) SARS-CoV-2 (PCR) Not Detected (Not Detectd) Disposition Clinical Impression: Weakness, Leukocytosis, Urinary tract infection Disposition: ADMITTED IP TO THIS HOSP Condition: Fair Is patient prescribed a controlled substance at d/c from ED?: No Time of Disposition: 21:40
[2023-07-24 19:17] LABS: ALT 13 U/L (4-34); AST 18 U/L (14-36); African American GFR (CKD) 46 (>60 ml/min/1.73 sqM); Alkaline Phosphatase 93 U/L (38-126); Anion Gap 12 mmol/L; Blood Urea Nitrogen 28 mg/dL (7-17); Calcium 8.9 mg/dL (8.4-10.2); Carbon Dioxide 15 mmol/L (22-30); Chloride 107 mmol/L (98-107); Glucose 135 mg/dL (74-99); Non-African American GFR(CKD) 40 (>60 ml/min/1.73 sqM); Sodium 134 mmol/L (137-145); Total Bilirubin 0.5 mg/dL (0.2-1.3); Total Protein 6.2 g/dL (6.3-8.2)
[2023-07-24 19:26] LABS: NT-Pro-B-Type Natriuretic Pept 900 pg/mL
[2023-07-24 21:24] LABS: Appearance,Urine Cloudy (Clear); Bacteria,Urine Many /hpf; Bilirubin,Urine Negative (Negative); Blood,Urine Large (Negative); Color,Urine Light Yellow; Glucose,Urine (UA) Negative (Negative); Ketones,Urine Negative (Negative); Leukocyte Esterase,Urine Large (Negative); Mucus,Urine Rare /hpf; Nitrite,Urine Negative (Negative); PH, Urine 6.5 (5.0-8.0); Protein,Urine 2+ (Negative); RBC,Urine 27 /hpf (0-5); Specific Gravity,Urine 1.015 (1.001-1.035); Squamous Epithelial Cell,Urine 20 /hpf (0-4); Urobilinogen,Urine <2.0 mg/dL (<2.0); WBC,Urine 109 /hpf (0-5)
[2023-07-24] MEDS ORDERED: NALOXONE 0.4 MG/ML 1 ML VIAL IV PRN (21:41)
--- NOTE | 2023-07-25 04:12 | P.HPIM ---
History of Present Illness H&P Date: 07/24/23 Patient is a 73-year-old female with a PMH of recent T10 to pelvis decompression and fusion with multiple subsequent complications and prolonged hospitalization with wound dehiscence, A. fib on Xarelto, type II DM, hypertension, hyperlipidemia, with a recent inpatient rehab stay who presents to the emergency room with complaints of progressive weakness. Patient reports that over the past 2-3 weeks, she has been getting increasingly weak where she is now unable to perform her ADLs. She also reports lower extremity edema over the past 2 weeks without shortness of breath or chest discomfort. She reports multiple falls at home which she attributes to the weakness, suffering some minor injurie s without loss of consciousness or head trauma. Denied any lower back pain at the time of interview. Does report right lower extremity weakness greater than left ever since her surgery. Denied fever, chills, urinary complaints, or abdominal pain. Chest x-ray in the emergency room was unremarkable. EKG reveals sinus rhythm at [address]/T-wave changes noted as reviewed by me. Laboratory evaluation revealed a UA consistent with UTI with sodium 134, CO2 15, BUN 28, creatinine 1.32, glucose 135, and leukocytosis of 15.5. ED documentation reviewed and case discussed with ED provider. Review of systems: Pertinent positives and negatives as discussed in HPI, a complete review of systems was performed and all other systems are negative. Physical examination: Vital signs reviewed General: non toxic, no distress, appears at stated age, normal weight Derm: no unusual rashes/lesions, warm Head: atraumatic, normocephalic, symmetric Eyes: EOMI, no lid lag, anicteric sclera, pupils equal round reactive to light ENT: Nose and ears atraumatic Neck: No cervical lymphadenopathy, trachea midline, supple Mouth: no lip lesion, mucus membranes moist Cardiovascular: S1S2 reg, no murmur, positive dorsalis pedis pulse bilateral, 2+ bilateral lower extremity pitting edema Lungs: CTA bilateral, no rhonchi, no rales, no accessory muscle use Abdominal: soft, nontender to palpation, no guarding Ext: muscle strength 3/5 of RLE, 4/5 of LLE, 5/5 saba UEs, no gross muscle atrophy, no contractures Neuro: CN II-XI grossly intact, no gross focal neuro deficits Psych: Alert, oriented, appropriate affect Assessment: Urinary tract infection Bilateral lower extremity pitting edema, rule out CHF Debility, likely due to above [id number] Chronic conditions: A. fib, type II DM, hypertension, hyperlipidemia Imaging: Chest x-ray in the emergency room was unremarkable. EKG reveals sinus rhythm at [address]/T-wave changes noted as reviewed by me. Data Review: Laboratory evaluation revealed a UA consistent with UTI with sodium 134, CO2 15, BUN 28, creatinine 1.32, glucose 135, and leukocytosis of 15.5. Plan: Continue ceftriaxone 2 g daily Follow-up urine and blood cultures Obtain echocardiogram PT consult Monitor BMP Continue with home medications Insulin sliding scale and blood glucose monitoring DVT prophylaxis: Xarelto The patient is admitted with an anticipated greater than 2 midnight stay for evaluation of UTI CODE STATUS: Full Code Discussed with: Patient Anticipated discharge place: Home Past Medical History Past Medical History: Diabetes Mellitus, Hyperlipidemia, Hypertension, Musculoskeletal Disorder, Osteoarthritis (OA) Additional Past Medical History / Comment(s): Degenerative Disc Disease. History of Any Multi-Drug Resistant Organisms: None Reported Past Surgical History: Cholecystectomy Additional Past Surgical History / Comment(s): Dental work, cataract surgery. Past Anesthesia/Blood Transfusion Reactions: No Reported Reaction Past Psychological History: No Psychological Hx Reported Smoking Status: Never smoker Past Alcohol Use History: Occasional Past Drug Use History: None Reported - Past Family History Brother(s) Family Medical History: Cancer Additional Family Medical History / Comment(s): Lung cancer. Father Family Medical History: Cancer Additional Family Medical History / Comment(s): Melanoma. Medications and Allergies Home Medications Medication Instructions Recorded Confirmed Type Calcium Citrate/Vitamin D3 1 tab PO DAILY 03/15/23 07/24/23 History [Citracal + D Maximum Caplet] metFORMIN HCL 500 mg PO DAILY 03/15/23 07/24/23 History Amiodarone [Cordarone] 200 mg PO BID tab 04/17/23 07/24/23 Rx Pantoprazole [Protonix] 40 mg PO DAILY #14 tab 04/17/23 07/24/23 Rx Rivaroxaban [Xarelto] 20 mg PO W/SUPPER tab 04/17/23 07/24/23 Rx gemfibroziL [Lopid] 600 mg PO AC-BID #14 tab 04/17/23 07/24/23 Rx Ferrous Sulfate [Iron] 325 mg PO MOWEFR 05/07/23 07/24/23 History Cyanocobalamin [Vitamin B-12] 500 mcg PO DAILY 07/24/23 07/24/23 History Folic Acid 1 mg PO DAILY 07/24/23 07/24/23 History Metoprolol Tartrate [Lopressor] 12.5 mg PO BID 07/24/23 07/24/23 History Niacin 500 mg PO DAILY 07/24/23 07/24/23 History Allergies Allergy/AdvReac Type Severity Reaction Status Date / Time ciprofloxacin [From Cipro] Allergy Rash/Hives Verified 07/24/23 20:46 poison jarek extract Allergy Rash/Hives Verified 07/24/23 20:46 Sulfa (Sulfonamide Allergy Unknown Verified 07/24/23 20:46 Antibiotics) Physical Exam Vitals: Vital Signs Temp Pulse Pulse Resp BP BP Pulse Ox 07/24/23 23:27 97.8 F 59 L 17 154/68 96 07/24/23 22:30 75 13 124/55 98 07/24/23 21:30 70 17 136/55 98 07/24/23 20:00 72 17 127/54 100 07/24/23 19:30 71 18 126/54 99 07/24/23 19:00 70 18 129/49 100 07/24/23 16:37 97.4 F L 78 18 156/75 100 Intake and Output 07/24/23 07/24/23 07/25/23 14:59 22:59 06:59 Other: Weight 68.039 kg Results CBC & Chem 7: 07/24/23 17:17 07/24/23 17:17 Labs: Abnormal Lab Results - Last 24 Hours (Table) 07/24/23 07/24/23 07/24/23 Range/Units 17:17 17:17 17:17 WBC 15.5 H (3.8-10.6) k/uL RBC 3.03 L (3.80-5.40) m/uL Hgb 9.4 L (11.4-16.0) gm/dL Hct 29.3 L (34.0-46.0) % Plt Count 466 H (150-450) k/uL Neutrophils # 13.7 H (1.3-7.7) k/uL PT 12.6 H (10.0-12.5) sec INR 1.2 H (<1.2) Sodium (137-145) mmol/L Carbon Dioxide (22-30) mmol/L BUN (7-17) mg/dL Creatinine (0.52-1.04) mg/dL Glucose (74-99) mg/dL Total Protein (6.3-8.2) g/dL Albumin (3.5-5.0) g/dL Urine Appearance Cloudy H (Clear) Urine Protein 2+ H (Negative) Urine Blood Large H (Negative) Ur Leukocyte Esterase Large H (Negative) Urine RBC 27 H (0-5) /hpf Urine WBC 109 H (0-5) /hpf Urine WBC Clumps Occasional H (None) /hpf Ur Squamous Epith Cells 20 H (0-4) /hpf Urine Bacteria Many H (None) /hpf Urine Mucus Rare H (None) /hpf 07/24/23 Range/Units 17:17 WBC (3.8-10.6) k/uL RBC (3.80-5.40) m/uL Hgb (11.4-16.0) gm/dL Hct (34.0-46.0) % Plt Count (150-450) k/uL Neutrophils # (1.3-7.7) k/uL PT (10.0-12.5) sec INR (<1.2) Sodium 134 L (137-145) mmol/L Carbon Dioxide 15 L (22-30) mmol/L BUN 28 H (7-17) mg/dL Creatinine 1.32 H (0.52-1.04) mg/dL Glucose 135 H (74-99) mg/dL Total Protein 6.2 L (6.3-8.2) g/dL Albumin 3.0 L (3.5-5.0) g/dL Urine Appearance (Clear) Urine Protein (Negative) Urine Blood (Negative) Ur Leukocyte Esterase (Negative) Urine RBC (0-5) /hpf Urine WBC (0-5) /hpf Urine WBC Clumps (None) /hpf Ur Squamous Epith Cells (0-4) /hpf Urine Bacteria (None) /hpf Urine Mucus (None) /hpf Thrombosis Risk Factor Assmnt - Choose All That Apply Any of the Below Risk Factors Present?: No Other Risk Factors: Yes Each Risk Factor Represents 2 Points: Age 61-74 years Other congenital or acquired thrombophilia - If yes, enter type in comment: No Thrombosis Risk Factor Assessment Total Risk Factor Score: 2 Thrombosis Risk Factor Assessment Level: Low Risk
[2023-07-25 06:28] LABS: HCT 29.2 % (34.0-46.0); HGB 9.7 gm/dL (11.4-16.0); Hypochromasia Marked; MCHC 33.2 g/dL (31.0-37.0); MCV 96.6 fL (80.0-100.0); Mean Platelet Volume 8.9; Platelet Count 488 k/uL (150-450); RBC 3.03 m/uL (3.80-5.40); RDW 15.1 % (11.5-15.5); WBC 15.7 k/uL (3.8-10.6)
[2023-07-25 06:40] LABS: African American GFR (CKD) 52 (>60 ml/min/1.73 sqM); Anion Gap 11 mmol/L; Blood Urea Nitrogen 24 mg/dL (7-17); Calcium 8.6 mg/dL (8.4-10.2); Carbon Dioxide 15 mmol/L (22-30); Chloride 110 mmol/L (98-107); Glucose 107 mg/dL (74-99); Non-African American GFR(CKD) 45 (>60 ml/min/1.73 sqM); Sodium 136 mmol/L (137-145)
[2023-07-25] MEDS: INSULIN ASPART (NovoLOG) 100 UNIT/ML VIAL SQ SCH ×4 (07:24→21:12)
[2023-07-25 07:34] LABS: Glucose,Whole Blood 119 mg/dL (70-110)
[2023-07-25] MEDS: PANTOPRAZOLE 40 MG TABLET PO SCH (08:24)
[2023-07-25] MEDS: METOPROLOL TARTRATE 12.5 MG TAB PO SCH ×2 (08:24→20:09)
[2023-07-25] MEDS: AMIODARONE 200 MG TAB PO SCH ×2 (08:24→20:09)
--- NOTE | 2023-07-25 10:04 | CA ---
Transthoracic Echo Report Name: Giana Schultz Age: 73 Gender: F : 1950 Exam Date: 07/25/2023 08:06 Exam Location: [facility] Ht (in): 65 Wt (lb): 150 Ordering Physician: Jimenez Ag MD Attending/Referring Phys: Holistic Specialist Donita Shahid RDCS Procedure CPT: Indications: fluid overload Cardiac Hx: Technical Quality: Fair Contrast 1: Total Dose (mL): Contrast 2: Total Dose (mL): MEASUREMENTS (Male / Female) Normal Values 2D ECHO LV Diastolic Diameter PLAX 4.1 cm 4.2 - 5.9 / 3.9 - 5.3 cm LV Systolic Diameter PLAX 2.4 cm IVS Diastolic Thickness 1.2 cm 0.6 - 1.0 / 0.6 - 0.9 cm LVPW Diastolic Thickness 1.2 cm 0.6 - 1.0 / 0.6 - 0.9 cm LV Relative Wall Thickness 0.6 RV Internal Dim ED PLAX 2.4 cm LA Volume 44.2 cm??? 18 - 58 / 22 - 52 cm??? LA Volume Index 24.9 cm???/m??? 16 - 28 cm???/m??? DOPPLER AV Peak Velocity 154.1 cm/s AV Peak Gradient 9.5 mmHg AV Mean Velocity 106.1 cm/s AV Mean Gradient 5.1 mmHg AV Velocity Time Integral 33.1 cm LVOT Peak Velocity 104.5 cm/s LVOT Peak Gradient 4.4 mmHg LVOT Velocity Time Integral 24.6 cm MV Area PHT 2.7 cm??? Mitral E Point Velocity 72.1 cm/s Mitral A Point Velocity 121.8 cm/s Mitral E to A Ratio 0.6 MV Deceleration Time 276.1 ms TR Peak Velocity 337.2 cm/s TR Peak Gradient 45.5 mmHg Right Ventricular Systolic Press 50.5 mmHg FINDINGS Left Ventricle Mildly increased left ventricular wall thickness. Left ventricular cavity size normal. Normal left ventricular systolic function with no obvious regional wall motion abnormalities. Left ventricular ejection fraction is estimated at 55-60 %. Right Ventricle Normal right ventricular size and function. Moderate pulmonary hypertension. Right Atrium Normal right atrial size. Left Atrium Normal left atrial size. Mitral Valve Structurally normal mitral valve. Mitral valve thickened. Moderate mitral annular calcification. Mild mitral regurgitation. Aortic Valve No aortic valve stenosis or regurgitation. Tricuspid Valve Structurally normal tricuspid valve. [id number] tricuspid regurgitation. Pulmonic Valve Trace pulmonic regurgitation. Pericardium No pericardial effusion. Aorta Normal size aortic root and proximal ascending aorta. CONCLUSIONS Mild mitral regurgitation Moderate pulmonary hypertension Normal LV systolic function Previewed by: Dr. Jc Morocho MD (Electronically Signed) Final Date: 25 July 2023 10:04
[2023-07-25 12:11] LABS: Glucose,Whole Blood 141 mg/dL (70-110)
[2023-07-25 13:18] VITALS: BMI 25.0
--- NOTE | 2023-07-25 16:33 | P.PN ---
Subjective Progress Note Date: 07/25/23 Hospital course: Patient is a very pleasant 73-year-old female with a past medical history of recent T10 to pelvis decompression and fusion with multiple subsequent complications and prolonged hospitalization with wound dehiscence, A. fib on Xarelto, type II DM, hypertension, hyperlipidemia, with a recent inpatient rehab stay who presents to the emergency room with complaints of progressive weakness. Patient reports that over the past 2-3 weeks, she has been getting increasingly weak where she is now unable to perform her ADLs. She also reports lower extremity edema over the past 2 weeks without shortness of breath or chest discomfort. She reports multiple falls at home which she attributes to the weakness, suffering some minor injuries without loss of consciousness or head trauma. Denied any lower back pain at the time of admission. She underwent full evaluation the emergency department. Chest x-ray in the emergency room was unremarkable. EKG reveals sinus rhythm at [address]/T-wave changes noted as reviewed by me. Laboratory evaluation revealed a UA consistent with UTI with sodium 134, CO2 15, BUN 28, creatinine 1.32, glucose 135, and leukocytosis of 15.5. Physical exam: Patient seen and fully evaluated this morning. She was sitting up at bedside in chair. Patient reports discomfort to coccyx region secondary to pressure ulcers. She currently denies having any other complaints at this time. She does report having mild urinary urgency and frequency but denies dysuria, suprapubic pain or any other complaints. Vital signs reviewed and stable. General: Nontoxic, no distress and appears stated age. Derm: Skin warm and dry, normal coloration for ethnicity. Head: Atraumatic, normocephalic and symmetric. Eyes: EOMs intact, no lid lag, and anicteric sclera Mouth: no lip lesions, mucus membranes moist Cardiovascular: regular rate and rhythm with normal S1S2, no murmur, positive posterior tibial pulses bilaterally, and cap refill < 2 seconds. Lungs: Respirations even, regular, and unlabored on room air. Lungs CTA bilaterally, no rhonchi, no rales, no wheezing, and no accessory muscle usage. Abdominal: soft, nontender to palpation, no guarding, no appreciable organomegaly Ext: ROM intact. No gross muscle atrophy, no edema, no contractures Neuro: Speech clear, face symmetrical and CN II-XII grossly intact with no noted focal neuro deficits Psych: Alert and oriented to person, place, time, and situation. Appropriate and pleasant affect. Assessment and Plan of Care: Urinary tract infection Leukocytosis likely secondary to above Acute kidney injury, likely secondary to dehydration and current UTI Bilateral lower extremity pitting edema Generalized weakness and Debility, likely due to above Follow-up on urine culture. Continue IV antibiotics with Rocephin 2 g every 24 hours pending urine culture results. Bladder scan monitor for postvoid residuals. Follow-up on blood culture results Physical and occupational therapy consulted, appreciate recommendations. Pressure ulcers/wounds Consult placed and wound care Paroxysmal atrial fibrillation Hypertension Hyperlipidemia Continue daily medication regimen with Xarelto 15 mg with supper, metoprolol 12.5 mg twice daily, and amiodarone 200 mg twice daily. Type II orv-[id number] diabetes mellitus -Hold metformin in place patient on glycemic protocol with NovoLog sliding scale. Data and imaging reviewed: CBC showing leukocytosis with WBC count of 15.7 and stable normocytic anemia with hemoglobin of 9.7 as well as thrombocytosis with platelet count of 488. Vital signs reviewed. Blood pressure 150/70, heart rate 71, respiratory rate 18, temp 98.5F, and SpO2 of 96% on room air. CODE STATUS: Full code DVT prophylaxis: Xarelto Anticipated discharge date: Clinical course to determine Anticipated discharge place: Clinical course to determine Patient was seen independently by Nurse Pracitioner. This document was prepared using [employer] dictation software. Please allow for errors in telephone service representative, while rare they do occur. Objective - Vital Signs Vital signs: Vital Signs Temp 98.5 F 07/25/23 07:36 Pulse 71 07/25/23 07:36 Resp 18 07/25/23 07:36 BP 150/70 07/25/23 07:36 Pulse Ox 94 L 07/25/23 02:00 FiO2 Intake & Output 07/24/23 07/25/23 07/25/23 18:59 06:59 18:59 Intake Total 120 180 Balance 120 180 Weight 68.039 kg 68.039 kg Intake: Oral 120 180 Other: Voiding Method Diaper Diaper External Catheter # Voids 2 - Labs CBC & Chem 7: 07/25/23 05:54 07/25/23 05:54 Labs: Abnormal Lab Results - Last 24 Hours (Table) 07/24/23 07/24/23 07/24/23 Range/Units 17:17 17:17 17:17 WBC 15.5 H (3.8-10.6) k/uL RBC 3.03 L (3.80-5.40) m/uL Hgb 9.4 L (11.4-16.0) gm/dL Hct 29.3 L (34.0-46.0) % Plt Count 466 H (150-450) k/uL Neutrophils # 13.7 H (1.3-7.7) k/uL PT 12.6 H (10.0-12.5) sec INR 1.2 H (<1.2) Sodium (137-145) mmol/L Chloride (98-107) mmol/L Carbon Dioxide (22-30) mmol/L BUN (7-17) mg/dL Creatinine (0.52-1.04) mg/dL Glucose (74-99) mg/dL POC Glucose (mg/dL) (70-110) mg/dL Total Protein (6.3-8.2) g/dL Albumin (3.5-5.0) g/dL Urine Appearance Cloudy H (Clear) Urine Protein 2+ H (Negative) Urine Blood Large H (Negative) Ur Leukocyte Esterase Large H (Negative) Urine RBC 27 H (0-5) /hpf Urine WBC 109 H (0-5) /hpf Urine WBC Clumps Occasional H (None) /hpf Ur Squamous Epith Cells 20 H (0-4) /hpf Urine Bacteria Many H (None) /hpf Urine Mucus Rare H (None) /hpf 07/24/23 07/25/23 07/25/23 Range/Units 17:17 05:54 05:54 WBC 15.7 H (3.8-10.6) k/uL RBC 3.03 L (3.80-5.40) m/uL Hgb 9.7 L (11.4-16.0) gm/dL Hct 29.2 L (34.0-46.0) % Plt Count 488 H (150-450) k/uL Neutrophils # (1.3-7.7) k/uL PT (10.0-12.5) sec INR (<1.2) Sodium 134 L 136 L (137-145) mmol/L Chloride 110 H (98-107) mmol/L Carbon Dioxide 15 L 15 L (22-30) mmol/L BUN 28 H 24 H (7-17) mg/dL Creatinine 1.32 H 1.19 H (0.52-1.04) mg/dL Glucose 135 H 107 H (74-99) mg/dL POC Glucose (mg/dL) (70-110) mg/dL Total Protein 6.2 L (6.3-8.2) g/dL Albumin 3.0 L (3.5-5.0) g/dL Urine Appearance (Clear) Urine Protein (Negative) Urine Blood (Negative) Ur Leukocyte Esterase (Negative) Urine RBC (0-5) /hpf Urine WBC (0-5) /hpf Urine WBC Clumps (None) /hpf Ur Squamous Epith Cells (0-4) /hpf Urine Bacteria (None) /hpf Urine Mucus (None) /hpf 07/25/23 Range/Units 07:16 WBC (3.8-10.6) k/uL RBC (3.80-5.40) m/uL Hgb (11.4-16.0) gm/dL Hct (34.0-46.0) % Plt Count (150-450) k/uL Neutrophils # (1.3-7.7) k/uL PT (10.0-12.5) sec INR (<1.2) Sodium (137-145) mmol/L Chloride (98-107) mmol/L Carbon Dioxide (22-30) mmol/L BUN (7-17) mg/dL Creatinine (0.52-1.04) mg/dL Glucose (74-99) mg/dL POC Glucose (mg/dL) 119 H (70-110) mg/dL Total Protein (6.3-8.2) g/dL Albumin (3.5-5.0) g/dL Urine Appearance (Clear) Urine Protein (Negative) Urine Blood (Negative) Ur Leukocyte Esterase (Negative) Urine RBC (0-5) /hpf Urine WBC (0-5) /hpf Urine WBC Clumps (None) /hpf Ur Squamous Epith Cells (0-4) /hpf Urine Bacteria (None) /hpf Urine Mucus (None) /hpf
[2023-07-25 17:15] LABS: ALT 13 U/L (4-34); AST 18 U/L (14-36); African American GFR (CKD) 49 (>60 ml/min/1.73 sqM); Albumin 2.7 g/dL (3.5-5.0); Albumin/Globulin Ratio 0.9; Alkaline Phosphatase 71 U/L (38-126); Anion Gap 11 mmol/L; Blood Urea Nitrogen 23 mg/dL (7-17); Calcium 8.5 mg/dL (8.4-10.2); Carbon Dioxide 16 mmol/L (22-30); Chloride 108 mmol/L (98-107); Globulin 2.9 g/dL; Glucose 128 mg/dL (74-99); Non-African American GFR(CKD) 42 (>60 ml/min/1.73 sqM); Potassium 4.4 mmol/L (3.5-5.1); Sodium 135 mmol/L (137-145); Total Bilirubin 0.2 mg/dL (0.2-1.3); Total Protein 5.6 g/dL (6.3-8.2)
[2023-07-25] MEDS ORDERED: RIVAROXABAN 20 MG TAB PO SCH (17:30)
[2023-07-25] MEDS: RIVAROXABAN 15 MG TAB PO SCH (17:45)
[2023-07-25 17:54] LABS: Glucose,Whole Blood 110 mg/dL (70-110)
[2023-07-25 20:20] LABS: Glucose,Whole Blood 180 mg/dL (70-110)
[2023-07-26 04:23] VITALS: RESP 16
[2023-07-26 07:12] LABS: Glucose,Whole Blood 150 mg/dL (70-110)
[2023-07-26] MEDS: INSULIN ASPART (NovoLOG) 100 UNIT/ML VIAL SQ SCH ×4 (07:17→20:52)
[2023-07-26] MEDS: AMIODARONE 200 MG TAB PO SCH ×2 (08:30→20:51)
[2023-07-26] MEDS ORDERED: ACETAMINOPHEN TAB 325 MG TAB PO PRN (08:30)
[2023-07-26] MEDS: PANTOPRAZOLE 40 MG TABLET PO SCH (08:30)
[2023-07-26] MEDS: METOPROLOL TARTRATE 12.5 MG TAB PO SCH ×2 (08:30→20:51)
[2023-07-26 08:49] LABS: HCT 28.4 % (37.2-46.3); HGB 8.6 g/dL (12.0-15.0); MCH 29.3 pg (27.0-32.0); MCHC 30.3 g/dL (32.0-37.0); MCV 96.6 FL (80.0-97.0); Mean Platelet Volume 9.1 FL (9.5-12.2); NRBC Per 100 WBC 0 X 10*3/uL (0.00-0.01); Platelet Count 436 X 10*3/uL (140-440); RBC 2.94 X 10*6/uL (4.10-5.20); RDW 15.1 % (11.5-14.5); WBC 15.87 X 10*3/uL (4.50-10.00)
[2023-07-26] MEDS ORDERED: FERROUS SULFATE 325 MG TAB PO SCH (09:00)
[2023-07-26 09:02] LABS: ALT 8 U/L (8-44); AST 11 U/L (13-35); Albumin 2.6 g/dL (3.8-4.9); Alkaline Phosphatase 61 U/L (41-126); BUN/Creat Ratio 13.06 Ratio (12.00-20.00); Blood Urea Nitrogen 20.9 mg/dL (9.0-27.0); Calcium 8.7 mg/dL (8.7-10.3); Carbon Dioxide 17.2 mmol/L (21.6-31.8); Chloride 107 mmol/L (96-109); Globulin 2.6 g/dL (1.6-3.3); Glucose 131 mg/dL (70-110); Magnesium 1.8 mg/dL (1.5-2.4); Potassium 4.4 mmol/L (3.5-5.5); Sodium 135 mmol/L (135-145); Total Bilirubin <0.2 mg/dL (0.3-1.2); Total Protein 5.2 g/dL (6.2-8.2)
--- NOTE | 2023-07-26 10:36 | P.CONS ---
History of Present Illness - Reason for Consult Consult date: 07/26/23 wound care - History of Present Illness This is a 73-year-old patient with a past medical history significant for diabetes, hyperlipidemia, hypertension, genital discharge disease who underwent back surgery approximately 1 month ago. Patient is a lifelong nonsmoker. Patient states that she spends the majority of her time sitting in a chair she also sleeps in the chair. Patient has a unstageable pressure ulceration to the coccyx, a stage II pressure ulcer to the right buttocks and surgical wound dehiscence to the back incision site with fat layer exposure. The unstageable pressure ulcer measures approximately 2 x 2 x 0.3 cm a significant amount of eschar Slough and nonviable tissue present. No granulation noted within the wound bed. No tunneling or undermining noted at this time. Right buttocks is a stage II pressure ulcer was Slough and nonviable tissue present with minimal granulation. Mid back ulceration measures approximately 0.6 x 0.3 X0.1 cm with granulation noted within the wound bed minimal Slough wound edges are intact to the wound base no tunneling or undermining noted. Review Of Systems: Constitutional: No fever, no chills, no night sweats. No weight change. No weakness, fatigue or lethargy. No daytime sleepiness. Integumentary:reports wounds, no lesions. No rash or pruritus. No unusual bruising. No change in hair or nails. Physical exam: General Appearance: Alert, cooperative, no distress, appears stated age. Skin: See HPI all other Skin color, texture, tugor normal, no rashes or lesions. Neurologic: Alert oriented x3 Assessment: 1. Unstageable pressure ulcer sacrum 2. Nonhealing ulceration of other site with fat layer exposure 3. Stage II pressure right buttocks 4. Diabetes a skin ulcerations Plan: 1.Midline coccyx, back, right buttock: Apply honey gel and border foam. Change Monday. Patient benefit from advanced wound care and wound car e setting. We'll be happy to see her upon discharge. Thank you for the consultation any questions to contact the wound care center DNP note has been reviewed and discussed with Dr. Cassidy and the impression and plan of care has been directed as dictated. Past Medical History Past Medical History: Diabetes Mellitus, Hyperlipidemia, Hypertension, Muscul oskeletal Disorder, Osteoarthritis (OA) Additional Past Medical History / Comment(s): Degenerative Disc Disease. History of Any Multi-Drug Resistant Organisms: None Reported Past Surgical History: Cholecystectomy Additional Past Surgical History / Comment(s): Dental work, cataract surgery. Past Anesthesia/Blood Transfusion Reactions: No Reported Reaction Past Psychological History: No Psychological Hx Reported Smoking Status: Never smoker Past Alcohol Use History: Occasional Past Drug Use History: None Reported - Past Family History Brother(s) Family Medical History: Cancer Additional Family Medical History / Comment(s): Lung cancer. Father Family Medical History: Cancer Additional Family Medical History / Comment(s): Melanoma. Medications and Allergies Home Medications Medication Instructions Recorded Confirmed Type Calcium Citrate/Vitamin D3 1 tab PO DAILY 03/15/23 07/24/23 History [Citracal + D Maximum Caplet] metFORMIN HCL 500 mg PO DAILY 03/15/23 07/24/23 History Amiodarone [Cordarone] 200 mg PO BID tab 04/17/23 07/24/23 Rx Pantoprazole [Protonix] 40 mg PO DAILY #14 tab 04/17/23 07/24/23 Rx Rivaroxaban [Xarelto] 20 mg PO W/SUPPER tab 04/17/23 07/24/23 Rx gemfibroziL [Lopid] 600 mg PO AC-BID #14 tab 04/17/23 07/24/23 Rx Ferrous Sulfate [Iron] 325 mg PO MOWEFR 05/07/23 07/24/23 History Cyanocobalamin [Vitamin B-12] 500 mcg PO DAILY 07/24/23 07/24/23 History Folic Acid 1 mg PO DAILY 07/24/23 07/24/23 History Metoprolol Tartrate [Lopressor] 12.5 mg PO BID 07/24/23 07/24/23 History Niacin 500 mg PO DAILY 07/24/23 07/24/23 History Allergies Allergy/AdvReac Type Severity Reaction Status Date / Time ciprofloxacin [From Cipro] Allergy Rash/Hives Verified 07/24/23 20:46 poison jarek extract Allergy Rash/Hives Verified 07/24/23 20:46 Sulfa (Sulfonamide Allergy Unknown Verified 07/24/23 20:46 Antibiotics) Physical Exam Vitals: Vital Signs Temp Pulse Resp BP Pulse Ox 07/26/23 07:07 98.3 F 69 16 144/70 98 07/26/23 02:00 98.7 F 71 16 146/85 98 07/25/23 20:00 18 07/25/23 19:56 98.2 F 69 18 134/76 96 07/25/23 14:00 97.5 F L 68 18 116/64 99 Intake and Output 07/25/23 07/26/23 07/26/23 22:59 06:59 14:59 Output Total 150 600 Balance -150 -600 Output: Urine 150 600 Other: Voiding Method Diaper Diaper External Catheter External Catheter # Voids 0 1 Results CBC & Chem 7: 07/26/23 04:58 07/26/23 04:58 Labs: Abnormal Lab Results - Last 24 Hours (Table) 07/25/23 07/25/23 07/25/23 Range/Units 12:10 15:43 20:19 WBC (4.50-10.00) X 10*3/uL RBC (4.10-5.20) X 10*6/uL Hgb (12.0-15.0) g/dL Hct (37.2-46.3) % MCHC (32.0-37.0) g/dL RDW (11.5-14.5) % MPV (9.5-12.2) FL Sodium 135 L (137-145) mmol/L Chloride 108 H (98-107) mmol/L Carbon Dioxide 16 L (22-30) mmol/L BUN 23 H (7-17) mg/dL Creatinine 1.27 H (0.52-1.04) mg/dL Est GFR (CKD-EPI) (>=60) Glucose 128 H (74-99) mg/dL POC Glucose (mg/dL) 141 H 180 H (70-110) mg/dL Total Bilirubin (0.3-1.2) mg/dL AST (13-35) U/L Total Protein 5.6 L (6.3-8.2) g/dL Albumin 2.7 L (3.5-5.0) g/dL Albumin/Globulin Ratio (1.60-3.17) Ratio 07/26/23 07/26/23 07/26/23 Range/Units 04:58 04:58 07:11 WBC 15.87 H (4.50-10.00) X 10*3/uL RBC 2.94 L (4.10-5.20) X 10*6/uL Hgb 8.6 L (12.0-15.0) g/dL Hct 28.4 L (37.2-46.3) % MCHC 30.3 L (32.0-37.0) g/dL RDW 15.1 H (11.5-14.5) % MPV 9.1 L (9.5-12.2) FL Sodium (137-145) mmol/L Chloride (98-107) mmol/L Carbon Dioxide 17.2 L (22-30) mmol/L BUN (7-17) mg/dL Creatinine 1.6 H (0.52-1.04) mg/dL Est GFR (CKD-EPI) 34 L (>=60) Glucose 131 H (74-99) mg/dL POC Glucose (mg/dL) 150 H (70-110) mg/dL Total Bilirubin <0.2 L (0.3-1.2) mg/dL AST 11 L (13-35) U/L Total Protein 5.2 L (6.3-8.2) g/dL Albumin 2.6 L (3.5-5.0) g/dL Albumin/Globulin Ratio 1.00 L (1.60-3.17) Ratio Microbiology - Last 24 Hours (Table) 07/24/23 17:17 Urine Culture - Preliminary Urine,Voided Gram Neg Bacilli 07/24/23 21:30 Blood Culture - Preliminary Blood 07/24/23 21:46 Blood Culture - Preliminary Blood Assessment and Plan (1) Unstageable pressure ulcer of sacral region Current Visit: Yes Status: Acute Code(s): L89.150 - PRESSURE ULCER OF SACRAL REGION, UNSTAGEABLE SNOMED Code(s): 90485196346043378 (2) Stage II pressure ulcer of right buttock Current Visit: Yes Status: Acute Code(s): L89.312 - PRESSURE ULCER OF RIGHT BUTTOCK, STAGE 2 SNOMED Code(s): 25367006488706 (3) Non-pressure chronic ulcer of skin of other sites with fat layer exposed Current Visit: Yes Status: Acute Code(s): L98.492 - NON-PRS CHRONIC ULCER OF SKIN OF SITES W FAT LAYER EXPOSED SNOMED Code(s): 92396728 (4) Type 2 diabetes mellitus with other skin ulcer Current Visit: Yes Status: Acute Code(s): E11.622 - TYPE 2 DIABETES MELLITUS WITH OTHER SKIN ULCER; L98.499 - NON-PRESSURE CHRONIC ULCER OF SKIN OF SITES W U NSP SEVERITY SNOMED Code(s): 085995825
[2023-07-26 12:18] LABS: Glucose,Whole Blood 195 mg/dL (70-110)
--- NOTE | 2023-07-26 17:29 | P.PN ---
Subjective Progress Note Date: 07/26/23 Hospital course: Patient is a very pleasant 73-year-old female with a past medical history of recent T10 to pelvis decompression and fusion with multiple subsequent complications and prolonged hospitalization with wound dehiscence, A. fib on Xarelto, type II DM, hypertension, hyperlipidemia, with a recent inpatient rehab stay who presents to the emergency room with complaints of progressive weakness. Patient reports that over the past 2-3 weeks, she has been getting increasingly weak where she is now unable to perform her ADLs. She also reports lower extremity edema over the past 2 weeks without shortness of breath or chest discomfort. She reports multiple falls at home which she attributes to the weakness, suffering some minor injuries without loss of consciousness or head trauma. Denied any lower back pain at the time of admission. She underwent full evaluation the emergency department. Chest x-ray in the emergency room was unremarkable. EKG reveals sinus rhythm at [address]/T-wave changes noted as reviewed by me. Laboratory evaluation revealed a UA consistent with UTI with sodium 134, CO2 15, BUN 28, creatinine 1.32, glucose 135, and leukocytosis of 15.5. Physical exam: Patient seen and fully evaluated this morning. She was sitting up at bedside in chair visiting with her at bedside. Patient reports that her only discomfort to coccyx region secondary to pressure ulcers in the continued episodes of urgency but denies frequency or dysuria. Vital signs reviewed and stable. General: Nontoxic, no distress and appears stated age. Derm: Skin warm and dry, normal coloration for ethnicity. Head: Atraumatic, normocephalic and symmetric. Eyes: EOMs intact, no lid lag, and anicteric sclera Mouth: no lip lesions, mucus membranes moist Cardiovascular: regular rate and rhythm with normal S1S2, no murmur, positive posterior tibial pulses bilaterally, and cap refill < 2 seconds. Lungs: Respirations even, regular, and unlabored on room air. Lungs CTA bilaterally, no rhonchi, no rales, no wheezing, and no accessory muscle usage. Abdominal: soft, nontender to palpation, no guarding, no appreciable organomegaly Ext: ROM intact. No gross muscle atrophy, no edema, no contractures Neuro: Speech clear, face symmetrical and CN II-XII grossly intact with no noted focal neuro deficits Psych: Alert and oriented to person, place, time, and situation. Appropriate and pleasant affect. Assessment and Plan of Care: Gram-negative Urinary tract infection Leukocytosis likely secondary to above Acute kidney injury, likely secondary to dehydration and current UTI Bilateral lower extremity pitting edema Generalized weakness and Debility, likely due to above Urine culture preliminarily positive for gram-negative bacilli. Patient with persistent leukocytosis and previous hospitalization and ICU stay for sepsis , we will continue with Rocephin 2 g IVPB every 24 hours pending follow-up final urine culture and sensitivity report. Bladder scan to continue to monitor for postvoid residuals. Blood cultures showing no growth to date. Physical and occupational therapy consulted, appreciate recommendations. Pressure ulcers/wounds Consult placed to wound care Paroxysmal atrial fibrillation Hypertension Hyperlipidemia Continue daily medication regimen with Xarelto 15 mg with supper, metoprolol 12.5 mg twice daily, and amiodarone 200 mg twice daily. Type II pus-rnccnse-jpjjnzght diabetes mellitus -Hold metformin and continue patient on glycemic protocol with NovoLog sliding scale. Data and imaging reviewed: CBC showing leukocytosis with WBC count of 15.87, normocytic anemia with hemoglobin of 8.6, and resolution of previous thrombocytosis with platelet count now for 36. Vital signs reviewed. Blood pressure 144/70, heart rate 69, respiratory rate 16, temp 98.3F, SpO2 of 90% on room air. CODE STATUS: Full code DVT prophylaxis: Xarelto Anticipated discharge date: 24-48 hours awaiting final urine culture and sensitivity report is patient does have history of recent hospitalization with sepsis and prolonged ICU stay. Anticipated discharge place Home Patient was seen independently by Nurse Pracitioner. This document was prepared using [employer] dictation software. Please allow for errors in [employer]writers functional tester, while rare they do occur. Objective - Vital Signs Vital signs: Vital Signs Temp 98.3 F 07/26/23 07:07 Pulse 69 07/26/23 07:07 Resp 16 07/26/23 07:07 BP 144/70 07/26/23 07:07 Pulse Ox 98 07/26/23 07:07 FiO2 Intake & Output 07/25/23 07/26/23 07/26/23 18:59 06:59 18:59 Intake Total 180 Output Total 150 600 Balance 30 -600 Weight 68.039 kg Intake: Oral 180 Output: Urine 150 600 Other: Voiding Method Diaper Diaper External Catheter External Catheter # Voids 2 1 - Labs CBC & Chem 7: 07/26/23 04:58 07/26/23 04:58 Labs: Abnormal Lab Results - Last 24 Hours (Table) 07/25/23 07/25/23 07/25/23 Range/Units 12:10 15:43 20:19 Sodium 135 L (137-145) mmol/L Chloride 108 H (98-107) mmol/L Carbon Dioxide 16 L (22-30) mmol/L BUN 23 H (7-17) mg/dL Creatinine 1.27 H (0.52-1.04) mg/dL Glucose 128 H (74-99) mg/dL POC Glucose (mg/dL) 141 H 180 H (70-110) mg/dL Total Protein 5.6 L (6.3-8.2) g/dL Albumin 2.7 L (3.5-5.0) g/dL 07/26/23 Range/Units 07:11 Sodium (137-145) mmol/L Chloride (98-107) mmol/L Carbon Dioxide (22-30) mmol/L BUN (7-17) mg/dL Creatinine (0.52-1.04) mg/dL Glucose (74-99) mg/dL POC Glucose (mg/dL) 150 H (70-110) mg/dL Total Protein (6.3-8.2) g/dL Albumin (3.5-5.0) g/dL Microbiology - Last 24 Hours (Table) 07/24/23 21:30 Blood Culture - Preliminary Blood 07/24/23 21:46 Blood Culture - Preliminary Blood
[2023-07-26 17:32] LABS: Glucose,Whole Blood 107 mg/dL (70-110)
[2023-07-26] MEDS: SODIUM CHLORIDE 0.9% 1,000 ML IV SCH (18:15)
[2023-07-26] MEDS: RIVAROXABAN 15 MG TAB PO SCH (18:15)
[2023-07-26 20:17] LABS: Glucose,Whole Blood 130 mg/dL (70-110)
[2023-07-27] MEDS: SODIUM CHLORIDE 0.9% 1,000 ML IV SCH ×2 (06:07→18:25)
[2023-07-27 07:44] LABS: Glucose,Whole Blood 119 mg/dL (70-110)
[2023-07-27] MEDS: INSULIN ASPART (NovoLOG) 100 UNIT/ML VIAL SQ SCH ×3 (08:47→18:25)
[2023-07-27] MEDS: METOPROLOL TARTRATE 12.5 MG TAB PO SCH (09:57)
[2023-07-27] MEDS: AMIODARONE 200 MG TAB PO SCH (09:57)
[2023-07-27] MEDS: PANTOPRAZOLE 40 MG TABLET PO SCH (09:57)
[2023-07-27 10:51] LABS: HCT 30.4 % (34.0-46.0); HGB 9.4 gm/dL (11.4-16.0); Hypochromasia Moderate; MCH 30.3 pg (25.0-35.0); MCV 97.7 fL (80.0-100.0); Mean Platelet Volume 7.1; Platelet Count 458 k/uL (150-450); RBC 3.11 m/uL (3.80-5.40); RDW 14.5 % (11.5-15.5); WBC 13.4 k/uL (3.8-10.6)
[2023-07-27 11:11] LABS: African American GFR (CKD) 58 (>60 ml/min/1.73 sqM); Anion Gap 11 mmol/L; Blood Urea Nitrogen 19 mg/dL (7-17); Calcium 8.6 mg/dL (8.4-10.2); Carbon Dioxide 17 mmol/L (22-30); Chloride 109 mmol/L (98-107); Glucose 153 mg/dL (74-99); Non-African American GFR(CKD) 50 (>60 ml/min/1.73 sqM); Potassium 4.4 mmol/L (3.5-5.1); Sodium 137 mmol/L (137-145)
[2023-07-27 12:14] LABS: Glucose,Whole Blood 126 mg/dL (70-110)
[2023-07-27 13:08] VITALS: BP 138/76; PULSE 64; TEMP 97.4
--- NOTE | 2023-07-27 15:34 | P.DS ---
Providers Date of admission: 07/24/23 21:31 Expected date of discharge: 07/27/23 Attending physician: Jimenez Ag MD Primary care physician: Fred Stephens Hospital Course: Discharge Diagnosis: E. coli Urinary tract infection Leukocytosis likely secondary to above Acute kidney injury, likely secondary to dehydration and current UTI. Improved after IV hydration BUN 19, creatinine 1.1, GFR 58 on day of discharge. Bilateral lower extremity pitting edema Generalized weakness and Debility, likely due to above Pressure ulcers/wounds, patient was evaluated by wound care and will need to follow up outpatient at wound care clinic for continued management. Paroxysmal atrial fibrillation. Continue daily medication regimen with Xarelto 15 mg with supper, metoprolol 12.5 mg twice daily, and amiodarone 200 mg twice daily. Hypertension. Continue current medication regimen with metoprolol 12.5 mg twice daily. Hyperlipidemia. Continue gemfibrozil 600 mg twice daily. Type II [id number] diabetes mellitus. Resume metformin 500 mg daily. Hospital Course: Patient is a very pleasant 73-year-old female with a past medical history of re cent T10 to pelvis decompression and fusion with multiple subsequent complications and prolonged hospitalization with wound dehiscence, A. fib on Xarelto, type II DM, hypertension, hyperlipidemia, with a recent inpatient rehab stay who presents to the emergency room with complaints of progressive weakness. Patient reports that over the past 2-3 weeks, she has been getting increasingly weak where she is now unable to perform her ADLs. She also reports lower extremity edema over the past 2 weeks without shortness of breath or chest discomfort. She reports multiple falls at home which she attributes to the weakness, suffering some minor injuries without loss of consciousness or head trauma. Denied any lower back pain at the time of admission. She underwent full evaluation the emergency department. Chest x-ray in the emergency room was unremarkable. EKG reveals sinus rhythm at [address]/T-wave changes noted as reviewed by me. Laboratory evaluation revealed a UA co and started on IV antibiotics. nsistent with UTI with sodium 134, CO2 15, BUN 28, creatinine 1.32, glucose 135, and leukocytosis of 15.5. Patient was admitted under the services and started on IV antibiotics with Rocephin. Patient's condition stable she was evaluated by PT/OT, recommending home care services but patient declining at this time stating that she feels she is doing better with outpatient PT/OT she is currently using. Urine culture resulting positive for E. coli. Labs on day of discharge showed improvement of leukocytosis with WBC count decreasing to 13.4 and stable normocytic anemia with hemoglobin of 9.4. BMP showing resolution of acute kidney injury with BUN 19, creatinine 1.1, and GFR of 50. Patient is medically stable at this time. She received 3 day course of IV antibiotics with Rocephin and being discharged home on an additional 2 days of Keflex 500 mg every 6 hours to total a treatment course of 5 days for antibiotics for acute UTI. Prolonged course secondary to recent sepsis. Patient medically stable at this time and being discharged home with her . Physical exam: Vital signs reviewed and stable. General: Nontoxic, no distress and appears stated age. Derm: Skin warm and dry, normal coloration for ethnicity. Head: Atraumatic, normocephalic and symmetric. Eyes: EOMs intact, no lid lag, and anicteric sclera Mouth: no lip lesions, mucus membranes moist Cardiovascular: regular rate and rhythm with normal S1S2, no murmur, positive posterior tibial pulses bilaterally, and cap refill < 2 seconds. Lungs: Respirations even, regular, and unlabored on room air. Lungs CTA bilaterally, no rhonchi, no rales, no wheezing, and no accessory muscle usage. Abdominal: soft, nontender to palpation, no guarding, no appreciable organomegaly Ext: ROM intact. No gross muscle atrophy, no edema, no contractures Neuro: Speech clear, face symmetrical and CN II-XII grossly intact with no noted focal neuro deficits Psych: Alert and oriented to person, place, time, and situation. Appropriate and pleasant affect. A total of 35 minutes of time were spent preparing this complex discharge summary. Pt was discharged on 07/27/23 at 3:19 PM. Patient was seen independently by Nurse Practitioner. This document was prepared using [employer] dictation software. Please allow for errors in mold yard supervisor while rare they do occur. Hossein Salguero NP rendered care for this patient independently, reviewed the findings and plan as documented in the note above. I did not physically speak with or examine the patient on this date. Patient Condition at Discharge: Stable Plan - Discharge Summary New Discharge Prescriptions: New Cephalexin [Keflex] 500 mg PO QID 2 Days #8 cap Continue metFORMIN HCL 500 mg PO DAILY Calcium Citrate/Vitamin D3 [Citracal + D Maximum Caplet] 1 tab PO DAILY gemfibroziL [Lopid] 600 mg PO AC-BID #14 tab Niacin 500 mg PO DAILY Cyanocobalamin [Vitamin B-12] 500 mcg PO DAILY Amiodarone [Cordarone] 200 mg PO BID 90 Days #180 tab Folic Acid 1 mg PO DAILY 90 Days #90 tab Pantoprazole [Protonix] 40 mg PO DAILY 90 Days #90 tab Rivaroxaban [Xarelto] 20 mg PO W/SUPPER 90 Days #90 tab Ferrous Sulfate [Iron] 325 mg PO MOWEFR Changed Metoprolol Tartrate [Lopressor] 12.5 mg PO BID 90 Days #90 tab Discharge Medication List Calcium Citrate/Vitamin D3 [Citracal + D Maximum Caplet] 1 tab PO DAILY 03/15/23 [History] metFORMIN HCL 500 mg PO DAILY 03/15/23 [History] gemfibroziL [Lopid] 600 mg PO AC-BID #14 tab 04/17/23 [Rx] Ferrous Sulfate [Iron] 325 mg PO MOWEFR 05/07/23 [History] Cyanocobalamin [Vitamin B-12] 500 mcg PO DAILY 07/24/23 [History] Niacin 500 mg PO DAILY 07/24/23 [History] Amiodarone [Cordarone] 200 mg PO BID 90 Days #180 tab 07/27/23 [Rx] Cephalexin [Keflex] 500 mg PO QID 2 Days #8 cap 07/27/23 [Rx] Folic Acid 1 mg PO DAILY 90 Days #90 tab 07/27/23 [Rx] Metoprolol Tartrate [Lopressor] 12.5 mg PO BID 90 Days #90 tab 07/27/23 [Rx] Pantoprazole [Protonix] 40 mg PO DAILY 90 Days #90 tab 07/27/23 [Rx] Rivaroxaban [Xarelto] 20 mg PO W/SUPPER 90 Days #90 tab 07/27/23 [Rx] Follow up Appointment(s)/Referral(s): Vega Spaulding MD [Medical Doctor] - 2 Weeks (cardiolgist you requested contact information on) Fred Stephens DO [Primary Care Provider] - 1-2 days [facility] [NON-STAFF] - 08/08/23 8:00 am Patient Instructions/Handouts: Urinary Tract Infection in Women (DC) Activity/Diet/Wound Care/Special Instructions: Activity: As tolerated. Take breaks as needed. Diet: Heart healthy and carb consistent diet. Avoid salts, or foods with hidden salts such as canned or boxed foods and frozen dinners. Extra salt makes your heart work harder and traps the fluid in your body for longer. Special Instructions: Take all of your medications as directed and remember to keep all of your d octor's appointments and follow-up as needed. Have a Very Happy and Blessed Thanksgiving!!! Thank you for allowing us to participate in your care, it was truly a pleasure having you for our patient!!! Discharge Disposition: HOME SELF-CARE
[2023-07-27] MEDS ORDERED: CEPHALEXIN 500 MG CAP PO SCH (16:00)
[2023-07-27] MEDS: RIVAROXABAN 15 MG TAB PO SCH (18:25)
== END 2023-07-27 18:45 | disposition home or self-care (01) | DRG 690 ==
LOC: EC 16:35 → 5NMEDONC 21:31
PROVIDERS: ADMIT Internal Medicine; ATTEND Internal Medicine
DX: N39.0 Urinary tract infection, site not specified (principal); N17.8 Other acute kidney failure; T81.31XA Disruption of external operation (surgical) wound, not elsewhere classified, initial encounter; L89.312 Pressure ulcer of right buttock, stage 2; L98.492 Non-pressure chronic ulcer of skin of other sites with fat layer exposed; R29.6 Repeated falls; L89.150 Pressure ulcer of sacral region, unstageable; I48.0 Paroxysmal atrial fibrillation; I10 Essential (primary) hypertension; E86.0 Dehydration; E78.5 Hyperlipidemia, unspecified; E11.622 Type 2 diabetes mellitus with other skin ulcer; D64.9 Anemia, unspecified; B96.20 Unspecified Escherichia coli [E. coli] as the cause of diseases classified elsewhere; I27.20 Pulmonary hypertension, unspecified; I34.0 Nonrheumatic mitral (valve) insufficiency; Z20.822 Contact with and (suspected) exposure to COVID-19; Z79.01 Long term (current) use of anticoagulants; Z79.84 Long term (current) use of oral hypoglycemic drugs; Z79.899 Other long term (current) drug therapy; Z80.1 Family history of malignant neoplasm of trachea, bronchus and lung; Z80.8 Family history of malignant neoplasm of other organs or systems; Z88.1 Allergy status to other antibiotic agents; Z88.2 Allergy status to sulfonamides; Z88.8 Allergy status to other drugs, medicaments and biological substances
CPT/HCPCS: 36415; 71046; 80048; 80053; 81001; 83735; 83880; 84484; 85025; 85027; 85610; 85730; 87040; 87077; 87086; 87186; 87636; 93005; 93306; 96365; 99285

== ENCOUNTER 2023-09-09 14:25 | Emergency (ER) | payer MEDICARE, OTHER ==
--- NOTE | 2023-09-09 14:32 | ED ---
General Adult HPI - General Source: RN notes reviewed <Hugo Graff - Last Filed: 09/09/23 16:26> <Hazel Apodaca - Last Filed: 09/10/23 03:06> - General Stated complaint: infected sore - History of Present Illness Initial comments: Quick note: 73-year-old female presents for infection to bedsore. Patient sta channing she has a sacral sore that is treated with a wound VAC. She states on the nurse came to the house and there was no issue however today there was pus and she was told to come to the ER. She does see poor Nazan[facility] wound care. Her next appointment is Monday but they were afraid to wait that long Verbally signed by Hugo Graff PAC 09/09/22 [id number] (Hugo Graff) 73-year-old female presenting with chief complaint of possible infection to bedsore. Patient is currently following with wound care for a bedsore located on her sacrum. She has home care and follows at the wound care clinic. She is being treated with wound VAC. Today the nurse noted new pus and encouraged the patient to report to the ER. Patient's next appointment our wound care center is on Monday. No fever, chills, nausea, vomiting, increased pain. (Hazel Apodaca) - Related Data Home Medications Medication Instructions Recorded Confirmed Calcium Citrate/Vitamin D3 1 tab PO DAILY 03/15/23 07/24/23 [Citracal + D Maximum Caplet] metFORMIN HCL 500 mg PO DAILY 03/15/23 07/24/23 Ferrous Sulfate [Iron] 325 mg PO MOWEFR 05/07/23 07/24/23 Cyanocobalamin [Vitamin B-12] 500 mcg PO DAILY 07/24/23 07/24/23 Niacin 500 mg PO DAILY 07/24/23 07/24/23 Previous Rx's Medication Instructions Recorded gemfibroziL [Lopid] 600 mg PO AC-BID #14 tab 04/17/23 Amiodarone [Cordarone] 200 mg PO BID 90 Days #180 tab 07/27/23 Cephalexin [Keflex] 500 mg PO QID 2 Days #8 cap 07/27/23 Folic Acid 1 mg PO DAILY 90 Days #90 tab 07/27/23 Metoprolol Tartrate [Lopressor] 12.5 mg PO BID 90 Days #90 tab 07/27/23 Pantoprazole [Protonix] 40 mg PO DAILY 90 Days #90 tab 07/27/23 Rivaroxaban [Xarelto] 20 mg PO W/SUPPER 90 Days #90 tab 07/27/23 Clindamycin [Cleocin] 450 mg PO TID 7 Days #63 cap 09/09/23 Allergies Allergy/AdvReac Type Severity Reaction Status Date / Time ciprofloxacin [From Cipro] Allergy Rash/Hives Verified 09/09/23 15:15 poison jarek extract Allergy Rash/Hives Verified 09/09/23 15:15 Sulfa (Sulfonamide Allergy Unknown Verified 09/09/23 15:15 Antibiotics) Review of Systems ROS Other: All systems not noted in ROS Statement are negative. <Hugo Graff - Last Filed: 09/09/23 16:26> ROS Other: All systems not noted in ROS Statement are negative. <Hazel Apodaca - Last Filed: 09/10/23 03:06> ROS Statement: Those systems with pertinent positive or pertinent negative responses have been documented in the HPI. Past Medical History Past Medical History: Diabetes Mellitus, Hyperlipidemia, Hypertension, Musculoskeletal Disorder, Osteoarthritis (OA) Additional Past Medical History / Comment(s): Degenerative Disc Disease. History of Any Multi-Drug Resistant Organisms: None Reported Past Surgical History: Cholecystectomy Additional Past Surgical History / Comment(s): Dental work, cataract surgery. Past Anesthesia/Blood Transfusion Reactions: No Reported Reaction Past Psychological History: No Psychological Hx Reported Smoking Status: Never smoker Past Alcohol Use History: Occasional Past Drug Use History: None Reported - Past Family History Brother(s) Family Medical History: Cancer Additional Family Medical History / Comment(s): Lung cancer. Father Family Medical History: Cancer Additional Family Medical History / Comment(s): Melanoma. <Hugo Graff - Last Filed: 09/09/23 16:26> General Exam <Hugo Graff - Last Filed: 09/09/23 16:26> Limitations: no limitations General appearance: alert, in no apparent distress Head exam: Present: atraumatic, normocephalic Eye exam: Present: normal appearance Neck exam: Present: normal inspection Respiratory exam: Present: normal lung sounds bilaterally. Absent: respiratory distress, wheezes, rales, rhonchi, stridor Cardiovascular Exam: Present: regular rate, normal rhythm, normal heart sounds. Absent: systolic murmur, diastolic murmur, rubs, gallop, clicks Neurological exam: Present: alert, oriented X3 Psychiatric exam: Present: normal affect, normal mood Skin exam: Present: other (There is a very small amount of white discharge to the patient's sacral sore. No surrounding erythema or induration) <Hazel Apodaca - Last Filed: 09/10/23 03:06> - General Exam Comments Initial Comments: Visual PE: well appearing, no acute distress (Hugo Graff) Course Vital Signs 09/09/23 09/09/23 09/09/23 15:13 17:21 18:51 Temperature 98.4 F 97.5 F L 98.5 F Pulse Rate 72 57 L 60 Respiratory 20 18 15 Rate Blood Pressure 122/55 112/57 126/67 O2 Sat by Pulse 100 99 98 Oximetry 09/09/23 09/09/23 21:20 22:13 Temperature 97.7 F 98.2 F Pulse Rate 59 L 62 Respiratory 18 18 Rate Blood Pressure 124/71 151/68 O2 Sat by Pulse 100 100 Oximetry Medical Decision Making - Lab Data Result diagrams: 09/09/23 17:24 09/09/23 17:24 <Hazel Apodaca - Last Filed: 09/10/23 03:06> - Medical Decision Making Was pt. sent in by a medical professional or institution (RUPRET Diaz, DIRECTOR TELEVISION [employer], urgent care, hospital, or half-way...) When possible be specific @ -Sent by home care nurse Did you speak to anyone other than the patient for history (EMS, parent, family, police, friend...)? What history was obtained from this source @ -No Did you review nursing and triage notes (agree or disagree)? Why? @ -I reviewed and agree with nursing and triage notes Were old charts reviewed (outside hosp., previous admission, EMS record, old EKG, old radiological studies, urgent care reports/EKG's, half-way records)? Report findings @ -No old charts were reviewed Differential Diagnosis (chest pain, altered mental status, abdominal pain women, abdominal pain men, vaginal bleeding, weakness, fever, dyspnea, syncope, headache, dizziness, GI bleed, back pain, seizure, CVA, palpatations, mental health, musculoskeletal)? @ -Differential includes cellulitis, abscess, ALLERGIC reaction, this is not an all inclusive list EKG interpreted by me (3pts min.). @ -As above X-rays interpreted by me (1pt min.). @ -None done CT interpreted by me (1pt min.). @ -None done U/S interpreted by me (1pt. min.). @ -None done What testing was considered but not performed or refused? (CT, X-rays, U/S, labs)? Why? @ -None What meds were considered but not given or refused? Why? @ -None Did you discuss the management of the patient with other professionals (professionals i.e. , PA, DIRECTOR TELEVISION NEWS, lab, RT, psych nurse, social work msw, second baller, t eacher, public service officer, case hardener)? Give summary @ -No Was smoking cessation discussed for >3mins.? @ -No Was critical care preformed (if so, how long)? @ -No Were there social determinants of health that impacted care today? How? (Homelessness, low income, unemployed, alcoholism, drug addiction, transportation, low edu. Level, literacy, decrease access to med. care, nursing home, rehab)? @ -No Was there de-escalation of care discussed even if they declined (Discuss DNR or withdrawal of care, Hospice)? DNR status @ -No What co-morbidities impacted this encounter? (DM, HTN, Smoking, COPD, CAD, Cancer, CVA, ARF, Chemo, Hep., AIDS, mental health diagnosis, sleep apnea, morbid obesity)? @ -None Was patient admitted / discharged? Hospital course, mention meds given and ro loyd, prescriptions, significant lab abnormalities, going to OR and other pertinent info. @ -73-year-old female sent in by home care for concerns of a new pus surrounding her sacral ulcer. Currently being treated with a wound VAC. On physical examination there is a small amount of white discharge, wound culture is sent. No advanced erythema or induration surrounding the area. No leukocytosis. Hemoglobin 9.5 consistent with baseline. Potassium is hemolyzed, falsely elevated at 5.2. BUN 23 and creatinine 1.27, consistent with baseline. Patient will be treated with clindamycin outpatient and follow-up at her wound care appointment on Monday. Follow-up with PCP. Report back to ER with any new or worsening symptoms. Discussed return parameters and answered all questions. Patient conveyed verbal understanding and agreed to the plan. I discussed this case in detail with my attending Dr. Beasley Undiagnosed new problem with uncertain prognosis? @ -No Drug Therapy requiring intensive monitoring for toxicity (Heparin, Nitro, Insulin, Cardizem)? @ -No Were any procedures done? @ -No Diagnosis/symptom? @ -Pressure ulcer Acute, or Chronic, or Acute on Chronic? @ -Acute Uncomplicated (without systemic symptoms) or Complicated (systemic symptoms)? @ -Uncomplicated Side effects of treatment? @ -No Exacerbation, Progression, or Severe Exacerbation? @ -No Poses a threat to life or bodily function? How? (Chest pain, [place], [place], pneumonia, PE, COPD, DKA, ARF, appy, cholecystitis, CVA, Diverticulitis, Homicidal, Suicidal, threat to staff... and all critical care pts) @ -No (Hazel Apodaca) - Lab Data Lab Results 09/09/23 09/09/23 Range/Units 17:24 17:24 WBC 8.7 (3.8-10.6) k/uL RBC 3.14 L (3.80-5.40) m/uL Hgb 9.5 L (11.4-16.0) gm/dL Hct 29.5 L (34.0-46.0) % MCV 93.8 (80.0-100.0) fL MCH 30.2 (25.0-35.0) pg MCHC 32.2 (31.0-37.0) g/dL RDW 17.0 H (11.5-15.5) % Plt Count 355 (150-450) k/uL MPV 7.7 Neutrophils % 78 % Lymphocytes % 12 % Monocytes % 6 % Eosinophils % 2 % Basophils % 1 % Neutrophils # 6.7 (1.3-7.7) k/uL Lymphocytes # 1.0 (1.0-4.8) k/uL Monocytes # 0.6 (0-1.0) k/uL Eosinophils # 0.2 (0-0.7) k/uL Basophils # 0.0 (0-0.2) k/uL Hypochromasia Slight Anisocytosis Slight Sodium 137 (137-145) mmol/L Potassium 5.2 H (3.5-5.1) mmol/L Chloride 107 (98-107) mmol/L Carbon Dioxide 17 L (22-30) mmol/L Anion Gap 13 mmol/L BUN 23 H (7-17) mg/dL Creatinine 1.27 H (0.52-1.04) mg/dL Est GFR (CKD-EPI)AfAm 49 (>60 ml/min/1.73 sqM) Est GFR (CKD-EPI)NonAf 42 (>60 ml/min/1.73 sqM) Glucose 97 (74-99) mg/dL Calcium 9.7 (8.4-10.2) mg/dL Total Bilirubin 0.8 (0.2-1.3) mg/dL AST 54 H (14-36) U/L ALT 15 (4-34) U/L Alkaline Phosphatase 52 (38-126) U/L Total Protein 6.8 (6.3-8.2) g/dL Albumin 3.5 (3.5-5.0) g/dL Disposition <Hugo Graff - Last Filed: 09/09/23 16:26> Is patient prescribed a controlled substance at d/c from ED?: No Time of Disposition: 21:08 <Hazel Apodaca - Last Filed: 09/10/23 03:06> Clinical Impression: Pressure ulcer Disposition: HOME SELF-CARE Condition: Fair Instructions (If sedation given, give patient instructions): Pressure Injury (ED) Additional Instructions: Follow-up with wound care at your scheduled appointment on Monday. Report back to ER with any new or worsening symptoms. Take medication as prescribed. Prescriptions: Clindamycin [Cleocin] 450 mg PO TID 7 Days #63 cap Referrals: Steff Guy FNPB [REFERRING] - 1-2 days
[2023-09-09] MEDS ORDERED: SODIUM CHLORIDE 0.9% 500 ML 500 ML IV ONE (16:59)
[2023-09-09] MEDS ORDERED: MORPHINE SULFATE 4 MG/ML SYRINGE IVP STA (16:59)
[2023-09-09 19:41] LABS: ALT 15 U/L (4-34); AST 54 U/L (14-36); African American GFR (CKD) 49 (>60 ml/min/1.73 sqM); Albumin 3.5 g/dL (3.5-5.0); Alkaline Phosphatase 52 U/L (38-126); Anion Gap 13 mmol/L; Blood Urea Nitrogen 23 mg/dL (7-17); Calcium 9.7 mg/dL (8.4-10.2); Carbon Dioxide 17 mmol/L (22-30); Chloride 107 mmol/L (98-107); Glucose 97 mg/dL (74-99); Non-African American GFR(CKD) 42 (>60 ml/min/1.73 sqM); Sodium 137 mmol/L (137-145); Total Bilirubin 0.8 mg/dL (0.2-1.3); Total Protein 6.8 g/dL (6.3-8.2)
[2023-09-09 19:47] LABS: Potassium 5.2 mmol/L (3.5-5.1)
[2023-09-09 19:58] LABS: Anisocytosis Slight; Basophils % (A) 1 %; Eosinophils # (A) 0.2 k/uL (0-0.7); Eosinophils % (A) 2 %; HCT 29.5 % (34.0-46.0); HGB 9.5 gm/dL (11.4-16.0); Hypochromasia Slight; Lymphocytes % (A) 12 %; MCH 30.2 pg (25.0-35.0); MCHC 32.2 g/dL (31.0-37.0); MCV 93.8 fL (80.0-100.0); Mean Platelet Volume 7.7; Monocytes # (A) 0.6 k/uL (0-1.0); Monocytes % (A) 6 %; Neutrophils # (A) 6.7 k/uL (1.3-7.7); Neutrophils % (A) 78 %; Platelet Count 355 k/uL (150-450); RBC 3.14 m/uL (3.80-5.40); WBC 8.7 k/uL (3.8-10.6)
[2023-09-09] MEDS ORDERED: CLINDAMYCIN 150 MG CAP PO STA (20:42)
[2023-09-09 21:34] VITALS: RESP 18
[2023-09-09 22:22] VITALS: BP 151/68; PULSE 62; TEMP 98.2
== END 2023-09-09 22:15 | disposition home or self-care (01) ==
LOC: EC 14:25
DX: L89.159 Pressure ulcer of sacral region, unspecified stage (principal); I10 Essential (primary) hypertension; E11.9 Type 2 diabetes mellitus without complications; M19.90 Unspecified osteoarthritis, unspecified site; Z79.84 Long term (current) use of oral hypoglycemic drugs; Z79.899 Other long term (current) drug therapy; Z88.2 Allergy status to sulfonamides; Z88.8 Allergy status to other drugs, medicaments and biological substances; Z90.49 Acquired absence of other specified parts of digestive tract
CPT/HCPCS: 36415; 80053; 85025; 87070; 87205; 87077; 87186; 99283; 96374; 96361; J2270

== ENCOUNTER → 2023-11-03 | Outpatient (CLI) | payer MEDICARE, OTHER ==
[2023-11-03 15:57] LABS: HGB 11.3 g/dL (12.0-15.0); MCH 30.4 pg (27.0-32.0); MCHC 31.4 g/dL (32.0-37.0); MCV 96.8 FL (80.0-97.0); Mean Platelet Volume 9.4 FL (9.5-12.2); NRBC Per 100 WBC 0 X 10*3/uL (0.00-0.01); Platelet Count 326 X 10*3/uL (140-440); RBC 3.72 X 10*6/uL (4.10-5.20); RDW 14.9 % (11.5-14.5); WBC 7.86 X 10*3/uL (4.50-10.00)
[2023-11-03 18:38] LABS: INR 1.22 sec (0.93-1.11)
[2023-11-03 19:06] LABS: ALT 10 U/L (8-44); AST 25 U/L (13-35); Albumin 4.7 g/dL (3.8-4.9); Albumin/Globulin Ratio 1.31 Ratio (1.60-3.17); Alkaline Phosphatase 80 U/L (41-126); BUN/Creat Ratio 17.14 Ratio (12.00-20.00); Calcium 11.4 mg/dL (8.7-10.3); Carbon Dioxide 17.4 mmol/L (21.6-31.8); Chloride 107 mmol/L (96-109); Globulin 3.6 g/dL (1.6-3.3); Glucose 94 mg/dL (70-110); Potassium 4.4 mmol/L (3.5-5.5); Sodium 139 mmol/L (135-145); Total Bilirubin <0.2 mg/dL (0.3-1.2); Total Protein 8.3 g/dL (6.2-8.2)
== END | disposition home or self-care (01) ==
LOC: LABPAT 12:28
PROVIDERS: ATTEND Orthopaedic Surgery
DX: Z01.812 Encounter for preprocedural laboratory examination (principal); T81.89XA Other complications of procedures, not elsewhere classified, initial encounter; Z22.322 Carrier or suspected carrier of Methicillin resistant Staphylococcus aureus
CPT/HCPCS: 36415; 80053; 82306; 85027; 85610; 86850; 86870; 86880; 86900; 86901; 87070

== ENCOUNTER → 2023-11-04 | Outpatient (CLI) | payer MEDICARE, OTHER | END | disposition home or self-care (01) | LOC: LABWHC1 10:42 | PROVIDERS: ATTEND Orthopaedic Surgery | DX: R11.2 Nausea with vomiting, unspecified (principal) | CPT/HCPCS: 86850; 86870; 86880; 86900; 86901; 86902 ==

== ENCOUNTER 2023-11-07 11:31 | Inpatient (IN) | payer MEDICARE, OTHER ==
--- NOTE | 2023-11-07 06:26 | P.HPOR ---
History of Present Illness H&P Date: 11/03/23 .D:Date: 11/03/23 : 11:32am .T:Title: POSTOPERATIVE CHECK DOI: n/a DOS: 03/21/2347-[id number] decompression and fusion; 03/29/23-Revision dura repair and I&D. PO week/yr: 7 months VAS: 7 OCCUPATION: Unemployed IMPRESSION: 1. s/p [id number] decompression and fusion 2. s/p Revision dura repair and I&D 3. Wound dranage from small fistula posteriorly 4. s/p UTI with sepsis 5. s/p decubitus ulcer, healed PLAN: -Continue to progress activity as tolerated. Limit BLTPP to less than (10, 20, 30 lbs) -PT twice a week for 6 weeks to begin - Bryce removed today in office without issue - -Take medications as directed -Wear brace when up and about as directed. Do not wear in shower or to sleep. -Maintain incision clean and dry. Change dressing PRN -Ice for pain and swelling control -Ambulate daily - Discussed with pt and treatment for her continued drainage track in her back. This is likley from either a pocket of fluid deep or csf and they understand. They would like to have this revised and fixed and are comfortable with proceeding with this. We discussed risks and benefits at length given her extensive history and aspiration, arrest and issues at her last surgery they understand and are comfortable and are willing to assume all the risks of surgery. FOLLOW UP: Post surgical SUBJECTIVE: Pt presents today for a recheck of her low back. She continues to have a draininng sinus tract in the middle of her back. She states it has increased in the past week. She states her decubitus ulcer is better now and has healed. She recently had UTI for which she was treated for UTI sepsis and is better now from this. She is abmulating now under he own power and with a walker. She states no back pain. She states no leg issues. Just the draining tract that is giving her issues and she wants it taken care of. She denies any f/c/sob/cp at this time. Otherwise patient is very pleased with their progress since the time of their procedure and denies any f/c/sob/cp, perineal numbness and tinlging, bowel or bladder incontinence/retention, and is ambulating The patients' past social, medical, family, surgical history, as well as review of systems, have been reviewed. Please refer to the Neurosurgery History and Physical form that has been scanned in to our electronic medical record system. 16 points review of systems completed and as stated in HPI, all other systems reviewed are negative. RADIOGRAPHS: Post operative images taken today in office are reviewed with pt. AP and Lateral of Lumbar demonstrate hardware in satisfactory position with no evidence of any migration, fracture, failure or complicating process. PHYSICAL EXAM: AOX3, NAD, Appears well nourished and well hydrated. Overall alignment well maintained at this time inthe sagittal and coronal planes Incision: Healing well, no signs of infection at this time. Continued draining sinus tract, small, pin hole out the middle of the incision. No redness, no purulence, no fluid could be expressed today in office. She had a dressing on howevere that was saturated with serosanguinous like fluid. TTP: NONE FROM all major joints without restriction or pain 5/5 BUE all major muscle groups. 4/5 BLE all major muscle groups -Showing great improvement overall -ambulatory under he own power with a walker for balance SILT C3-T1 and L2-S1 Reflexes 2/4 all UE and LE b/l Cardona's: NEG Clonus: NEG Babinski: NEG Carlos's: NEG No tensioning signs CN II-XII grossly intact 2/4 Distal pulses all 4 ext, no edema Compartments soft and compressive Abdomen soft, NTTP Respirations normal, non labored Surgical Procedure Risk Review Giana Schultz is a 73 year old female presenting for evaluation of sudden onset of continued draingae from low back. It was my pleasure to have seen and examined Ms. Schultz. In our visit today we have had a chance to go over subjective complaints, physical examination findings and treatments, including the natural course history without intervention and various interventional options. The imaging demonstrates no complicating process at ths time. Post surgical T10-P in place without issues. Good healing noted . On physical exam, Ms. Schultz demonstrates Pin hole drainage from the center of her incision. Serus like fluid, does not appear to be csf but is mixed with subq fluid. no Purulence. No EEE. No redness. I explained to the patient that as her condition progresses it could cause Continued drainge, possible infective nidus . At this time, based on the patients imaging and physical exam, I recommend surgery in the form or a: Incision and drainage with irrigation and debridment of lumbar wound . I discu ssed the risk and benefits of this procedure at length with Antoine. The patient and husbandagreed to consider pursuing the procedure mentioned above. Plan: 1. Lumbar wound irrigation and debridement 2. Review of surgical risks and benefits as well as an educational packet on the proposed surgical procedure. Risks: All surgical procedures come with inherent risks, including those related to positioning, anesthesia, intraoperative findings, and postoperative complications. It is important to understand that surgery does not come with any guarantee of a successful outcome as complications and adverse events are always possible. The patient was given a handout in office today discussing the surgical procedure and risks associated with the intervention, both of which were discussed with the patient. These risks include but are not limited to the following: ? Experiencing same, different or even worse symptoms in back, neck, arms, or legs compared to before surgery. ? Requiring further surgery or other forms of treatment presently or at some time in the future at same or other levels of the intended spine surgery. ? On an extreme but fortunately relatively rare basis severe complication such as blindness, stroke, heart attack, temporary and/or permanent nerve injury, paralysis, coma, or may occur, sometimes without known explanation. ? Surgical complications may include but are not limited to risk of infection, fluid accumulation in the surgical dissection site, including a serom a or hematoma, that requires additional surgery, wound drainage, bleeding, new numbness or weakness, vision changes/loss, spinal fluid leakage, non-healing and/or infected incision, headaches, difficulty or inability to swallow, hoarseness, hemopneumothorax, pneumothorax, impotence, retrograde ejaculation, vaginal dryness; injury to nerves, spinal cord, blood vessels, lymphatics or other vital organs (i.e., bowel injury, injury to the great vessels); heterotopic bone formation; complications related to the hardware such as screws, rods, cages including misplaced hardware, device failure, instr umentation at the wrong spine level, hardware fracture/breakage, or hardware loosening; vertebral failure of the spinal column above or below the newly placed hardware; retained surgical instrumentations or devices and the need for further surgery. ? Medical risks of the planned spine surgery include but are not limited to generalized Infections to the whole body or local areas outside of the surgical site (sepsis), heart attack, bleeding, anaphylaxis, meningitis, seizure, epilepsy, hearing loss, burn lopez, laceration of the head or other areas of the body, bruising, hypersensitivity of the skin, bladder over distension; allergic reaction; shoulder injury related to positioning; fat, blood and air clots to other areas of the body like heart, lungs, brain; failure of internal organs such as lungs, kidneys, liver and excessive bleeding. If blood transfusions are necessary, note that transfusions may cause intolerance reactions such as anaphylaxis or other complex reactions. Despite best efforts, the results of spine surgery might not heal in terms of bone, soft tissues such as skin, fascia, ligaments, and joints. Additionally, in order to achieve best possible results, spine surgery may be carried out beyond the initially planned levels and involve decompression, fusion including insertion of hardware at levels other than the original intended area of surgical interest change some portions of the procedure in order to ensure the best possible outcomes. With spine surgery and spinal fusion, there are different off label uses of instrumentation (devices, implants and hardware) as well as biological substances (bone morphogenic proteins, demineralized bone matrix) as well as using extra bone from allograft sources (i.e. cadaver bone) or autograft (iliac crest bone, ribs, or the spine itself). The patient has been given information about these practices and their inherent risks and benefits. [facility] Physician Assistants are medically trained surgical providers who function in the outpatient, inpatient, and operating room setting under the direct supervision of the attending surgeon.They assist in the operating room with direct supervision of the attending surgeons. The patient has had a chance to review all the listed information, has been given print outs detailing this information, and has had all his/her questions answered to their satisfaction. It was my pleasure to have seen and examined Ms. Schultz. In our visit today we have had a chance to go over my understanding of our patient's current condition, the natural course history without intervention and various interventional options. Questions were invited and answered, and the patient wishes to proceed as outlined above. I have seen and examined the patient for 25 minutes and we have spent more than 50% of the time in repeat and detailed counseling about the patient's condition, its natural course history with out and as much as can be predicted with surgery and re-review of various surgical treatment options. In conclusion,Ms. Schultz and her spouse/partner requested we proceed with the above suggested surgery and are willing to accept risks and limitations of the suggested surgery as nature of the disease process and our best attempts at treatment for the condition. Thank you again for allowing us to be part of your patient's care. Please don't hesitate to contact me if you have any further questions. PATIENT EDUCATION: Medications Reviewed: YES In our visit today Ms. Schultz and I have had a chance to go over my understanding of the patient's current condition, the natural course history without intervention and various interventional options. Questions were invited and answered, and the patient wishes to proceed as outlined above. I will be sure to keep you updated after Ms. Schultz returns here for further follow-up. Thank you again for your referral. Please do not hesitate to contact me if you have any further questions. Signed and authenticated by: Lei Gottlieb [facility] [address] [place] [id number] This message is confidential, intended only for the named recipient(s) and may contain information that is privileged or exempt from disclosure under applicable law. If you are not the intended recipient(s), you are notified that the dissemination, distribution or copying of this information is strictly prohibited. If you received this message in error, please notify the sender then delete this message. #Orders: Lumbar 2v xray #Orders: Thoracic, 2v xray # SIGNED BY Lei Duong (GOO)11/07/2023 06:25A Past Medical History Past Medical History: Diabetes Mellitus, Hyperlipidemia, Hypertension, Musculoskeletal Disorder, Osteoarthritis (OA) Additional Past Medical History / Comment(s): Degenerative Disc Disease. decub on rt buttock nearly healed, does dressing changes to non healing wound at back surgery incision site bid History of Any Multi-Drug Resistant Organisms: MRSA Date of last positivie culture/infection: 09/09/23 MDRO Source:: Buttock Past Surgical History: Back Surgery, Cholecystectomy, Joint Replacement Additional Past Surgical History / Comment(s): Dental work, cataract surgery. rt hip replacement, opened area from back incision non healing, Past Anesthesia/Blood Transfusion Reactions: No Reported Reaction Smoking Status: Never smoker - Past Family History Brother(s) Family Medical History: Cancer Additional Family Medical History / Comment(s): Lung cancer. Father Family Medical History: Cancer Additional Family Medical History / Comment(s): Melanoma. Medications and Allergies Home Medications Medication Instructions Recorded Confirmed Type Calcium Citrate/Vitamin D3 1 tab PO DAILY 03/15/23 11/06/23 History [Citracal + D Maximum Caplet] metFORMIN HCL 500 mg PO DAILY 03/15/23 11/06/23 History gemfibroziL [Lopid] 600 mg PO AC-BID #14 tab 04/17/23 11/06/23 Rx Ferrous Sulfate [Iron] 325 mg PO MOWEFR 05/07/23 11/06/23 History Cyanocobalamin [Vitamin B-12] 500 mcg PO DAILY 07/24/23 11/06/23 History Niacin 500 mg PO DAILY 07/24/23 11/06/23 History Metoprolol Tartrate [Lopressor] 12.5 mg PO BID 90 Days #90 tab 07/27/23 11/06/23 Rx Pantoprazole [Protonix] 40 mg PO DAILY 90 Days #90 tab 07/27/23 11/06/23 Rx Dabigatran Etexilate Mesylate 150 mg PO BID 11/06/23 11/06/23 History [Dabigatran Etexilate] Folic Acid 800 mcg PO DAILY 11/06/23 11/06/23 History Multivitamins, Thera [Multivitamin 1 tab PO DAILY 11/06/23 11/06/23 History (formulary)] Vit C (Uunk) 2,000 mcg PO DAILY 11/06/23 11/06/23 History Allergies Allergy/AdvReac Type Severity Reaction Status Date / Time ciprofloxacin [From Cipro] Allergy Rash/Hives Verified 11/06/23 09:45 poison jarek extract Allergy Rash/Hives Verified 11/06/23 09:45 Sulfa (Sulfonamide Allergy Unknown Verified 11/06/23 09:45 Antibiotics) Physical Examination Osteopathic Statement: *. No significant issues noted on an osteopathic structural exam other than those noted in the History and Physical/Consult.
[~2023-11-07 11:31] MED LIST changes: -ACETAMINOPHEN TAB 500 MG TAB PO PRN; -DEXAMETHASONE SOD PHOSPHATE 4 MG/ML 1 ML VIAL IV ONE; -GABAPENTIN 300 MG CAP PO PRN; -LACTATED RINGERS 1,000 ML IV SCH; -MIDAZOLAM 2 MG/2 ML VIAL IV PRN; -ONDANSETRON 4 MG/2 ML VIAL IVP ONE
[2023-11-07] MEDS: LACTATED RINGERS 1,000 ML IV SCH (12:20)
[2023-11-07] MEDS: ACETAMINOPHEN TAB 500 MG TAB PO PRN (12:26)
[2023-11-07] MEDS: GABAPENTIN 300 MG CAP PO PRN (12:26)
[2023-11-07 12:35] LABS: Glucose,Whole Blood 109 mg/dL (70-110)
[2023-11-07 12:43] VITALS: TEMP 98.2
[2023-11-07] MEDS: ONDANSETRON 4 MG/2 ML VIAL IVP ONE (12:44)
[2023-11-07] MEDS: DEXAMETHASONE SOD PHOSPHATE 4 MG/ML 1 ML VIAL IV ONE (12:44)
[2023-11-07] MEDS: MIDAZOLAM 2 MG/2 ML VIAL IV PRN (12:46)
[2023-11-07] MEDS: fentaNYL (PF) 50 MCG/ML 2 ML AMP IVP ONE (13:13)
[2023-11-07] MEDS ORDERED: LIDOCAINE 1% INJ 10MG/ML (20 ML MDV) ONE (15:43)
[2023-11-07] MEDS ORDERED: NEOSTIGMINE 1 MG/ML 10 ML VIAL ONE (15:43)
[2023-11-07] MEDS ORDERED: PHENYLEPHRINE-0.9% NACL SYG 1,000 MCG/10 ML SYRINGE ONE (15:43)
[2023-11-07] MEDS ORDERED: SUCCINYLCHOLINE CHLORIDE 200 MG/10 ML VIAL IV ONE (15:43)
[2023-11-07] MEDS ORDERED: GLYCOPYRROLATE 0.2 MG/ML 2 ML VIAL ONE (15:43)
[2023-11-07] MEDS ORDERED: fentaNYL (PF) 50 MCG/ML 2 ML AMP ONE (15:43)
[2023-11-07] MEDS ORDERED: ROCURONIUM 10 MG/ML (5 ML VIAL) IV ONE (15:43)
[2023-11-07] MEDS ORDERED: PROPOFOL 10 MG/ML 20 ML VIAL IV ONE (15:43)
[2023-11-07] MEDS: VANCOMYCIN 1,000 MG VIAL MISCELLANE ONE ×2 (15:58→16:35)
[2023-11-07] MEDS: GENTAMICIN 80 MG in SODIUM CHLORIDE 0.9% IRRIGATIO 3,000 ML IRRIGATION ONE (16:27)
[2023-11-07] MEDS: ceFAZolin 3,000 MG in SODIUM CHLORIDE 0.9% IRRIGATIO 3,000 ML IRRIGATION ONE (16:28)
[2023-11-07] MEDS: LACTATED RINGERS 1,000 ML IV ONE (17:07)
[2023-11-07] MEDS: HYDROmorphone 0.5 MG/0.5 ML SYRINGE IVP PRN (17:22)
[2023-11-07 17:38] LABS: Glucose,Whole Blood 132 mg/dL (70-110)
--- NOTE | 2023-11-07 17:43 | P.OP ---
Date of Procedure: 11/07/23 Preoperative Diagnosis: 1. WOUND DEHISCENCE LUMBAR SPINE 2. S/P [id number] DECOMPRESSION AND FUSION WITH COMPLICATED MEDICAL COURSE 3. HX OF UTI, SEPSIS, DECUBITUS ULCER, DM 4. COMPLEX MEDICAL PATIENT Postoperative Diagnosis: 1. WOUND DEHISCENCE LUMBAR SPINE 2. S/P [id number] DECOMPRESSION AND FUSION WITH COMPLICATED MEDICAL COURSE 3. HX OF UTI, SEPSIS, DECUBITUS ULCER, DM 4. COMPLEX MEDICAL PATIENT Procedure(s) Performed: 1. INCISION AND DRAINAGE WITH IRRIGATION AND DEBRIDEMENT OF SKIN SOFT TISSUE AND BONE OF THE LUMBAR SPINE 15 CM X 10 CM X 5 CM USING THE FOLLOWING: -SKIN KINFE USED TO REMOVE TRACT, SKIN AND NECROTIC TISSUE -CURETTE AND RONGURE USED TO REMOVE NECROTIC AND DEVITALIZED TISSUE -IRRIGANT USED TO WASH IRRICEPT, BETADINE, GENT, ANCEF, NSS Implants: NONE Anesthesia: MORIAHA Surgeon: Lei Duong Care Companion #1: Frank Galaviz (WAS PRESENT AND ASSISTED WITH ALL ASPECTS OF THE CASE FROM POSITION TO CLOSURE) Estimated Blood Loss (ml): 25 IV fluids (ml): 500 Urine output (ml): 0 Pathology: other (LOW BACK SPECIMINE AND CULTURESX2) Condition: stable Disposition: PACU Indications for Procedure: Giana Schultz is a 73 year old female presenting for evaluation of sudden onset of continued draingae from low back. It was my pleasure to have seen and examined Ms. Schultz. In our visit today we have had a chance to go over subjective complaints, physic al examination findings and treatments, including the natural course history without intervention and various interventional options. The imaging demonstrates no complicating process at ths time. Post surgical T10-P in place without issues. Good healing noted . On physical exam, Ms. Schultz demonstrates Pin hole drainage from the center of her incision. Serus like fluid, does not appear to be csf but is mixed with subq fluid. no Purulence. No EEE. No redness. I explained to the patient that as her condition progresses it could cause Continued drainge, possible infective nidus . At this time, based on the patients imaging and physical exam, I recommend surgery in the form or a: Incision and drainage with irrigation and debridment of lumbar wound . I discussed the risk and benefits of this procedure at length with Ms. Schultz. The patient and husbandagreed to consider pursuing the procedure mentioned above. Plan: 1. Lumbar wound irrigation and debridement Description of Procedure: I&D LUMBAR SPINE The patient was seen and examined in the preoperative area. All preoperative protocols were followed. Informed consent was obtained, risks and benefits of the procedure were discussed at length. Risks including bleeding infection damage to the surrounding tissue and risk of reoperation were discussed with the patient. Risk of anesthesia up to and including was discussed with the patient. These are outlined in the risk review. They were willing to accept these risks and all of the risks of surgery. The patient was given a weight- based dose of antibiotics in the form of ANCEF. The patient was seen and evaluated by the anesthesia team who deemed them fit for surgery. The site was marked, the patient was willing to proceed with the procedure. The patient was transferred to the operative suite by the Department of anesthesia. They were then drifted off to sleep by the department anesthesia and GETA was performed. The patient tolerated this well. [Garnett catheter was placed by nursing staff, atraumatically]. Once confirmation of lines and ventilation the patient was transferred to a [prone Jose table very carefully]. All bony prominences including wrists, elbows, axilla, chest, hips, and thighs, and feet were padded very well. Special attention was paid to the genitalia and these were padded accordingly. SCDs were placed on bilateral lower extremities and were connected. Arms were well padded and placed [on arm boards up and out in the 90/90 position]. Once in position, again we confirmed good ventilation capabilities and that lines were running appropriately. The patient's LUMBAR spine was then exposed. 1010s were placed outlining the incision site. Standard alcohol was used to clean the incision site and allowed to dry. C-arm was used to biomark the patient and confirm level for incision which was marked with a skin marker. Operative briefing was performed with all teams and everyone in agreement to proceed. The patient was then prepped and draped in a normal sterile fashion. Timeout was then performed and all parties were in agreement with the procedure to be performed. Skin incision was made in an elliptical fashion around the nidus in the middle of the lumbar incision to remove the tract of draining sinus that was present. EC was used to dissect down to fascia. The tract was removed entirely. There was questionable tissue in this area and so cultures were taken as well as specimen taken and sent for pathology and for cultures. We did visualize the hardware in the area of the incision whic was taken past the fascia to the bone which was also debrided. We then irrigated and debrided the area of any devitalized or questionable looking tissues. Using curette, rongure and knife. We then inspected the area and there was no CSF leaking in the area. We then irrigated with Irricept 2 L as well as 2L betadine solution followed by 3 L Ancef, 3L gentamycin and then 3L NSS. 2g of vanco powder was then placed deep in the wound. The wound was closed in a layered closure deep fascia closed with 1 PDS, deep fascia with 0 vicryl, superficial with 2-0 vicryl and skin with 2-0 nylon in a simple fashion. The wound edges approximated well. The wound was then dressed sterilly with a Preveena incisional vac 7 day. It had good suction. The patient was transferred back to their hospital bed atraumatically. Patient was then awakened and extubated by the department of anesthesia having tolerated the procedure very well with no complications. They were transferred to the postoperative care unit in stable condition.
[2023-11-07 18:11] VITALS: RESP 18
[2023-11-07] MEDS ORDERED: HYDROcodone/APAP 7.5-325MG 1 EACH TAB ONE (18:11)
[2023-11-07] MEDS: HYDROcodone/APAP 7.5-325MG 1 EACH TAB PO ONE (18:14)
[2023-11-07 18:40] VITALS: BP 145/67; PULSE 60
== END 2023-11-07 18:50 | disposition home or self-care (01) | DRG 909 ==
LOC: 2ORMAIN 11:31 → EDSTATUS 13:00 → 2ORMAIN 17:14 → 4SSUR 17:14
PROVIDERS: ADMIT Orthopaedic Surgery; ATTEND Orthopaedic Surgery
PROC: 0QB00ZZ Excision of Lumbar Vertebra, Open Approach (ICD-10-PCS; principal; 2023-11-07 13:00)
DX: T81.32XA Disruption of internal operation (surgical) wound, not elsewhere classified, initial encounter (principal); E11.9 Type 2 diabetes mellitus without complications; I10 Essential (primary) hypertension; E78.5 Hyperlipidemia, unspecified; M19.90 Unspecified osteoarthritis, unspecified site; Z79.84 Long term (current) use of oral hypoglycemic drugs; Z79.02 Long term (current) use of antithrombotics/antiplatelets; Z79.899 Other long term (current) drug therapy; Z96.641 Presence of right artificial hip joint; Z87.440 Personal history of urinary (tract) infections; Z86.14 Personal history of Methicillin resistant Staphylococcus aureus infection; Z98.1 Arthrodesis status; Y83.8 Other surgical procedures as the cause of abnormal reaction of the patient, or of later complication, without mention of misadventure at the time of the procedure; Y92.009 Unspecified place in unspecified non-institutional (private) residence as the place of occurrence of the external cause; Z88.1 Allergy status to other antibiotic agents; Z88.2 Allergy status to sulfonamides
CPT/HCPCS: 87070; 87075; 87205; 88304

== ENCOUNTER → 2024-01-25 | Outpatient (CLI) | payer MEDICARE, OTHER ==
[2024-01-25 18:10] LABS: HCT 37.4 % (37.2-46.3); HGB 11.3 g/dL (12.0-15.0); MCHC 30.2 g/dL (32.0-37.0); MCV 99.2 FL (80.0-97.0); Mean Platelet Volume 9.8 FL (9.5-12.2); NRBC Per 100 WBC 0 X 10*3/uL (0.00-0.01); Platelet Count 297 X 10*3/uL (140-440); RBC 3.77 X 10*6/uL (4.10-5.20); RDW 14.2 % (11.5-14.5); WBC 9.04 X 10*3/uL (4.50-10.00)
[2024-01-25 18:21] LABS: ALT 12 U/L (8-44); AST 19 U/L (13-35); Albumin 4.4 g/dL (3.8-4.9); Albumin/Globulin Ratio 1.47 Ratio (1.60-3.17); Alkaline Phosphatase 91 U/L (41-126); BUN/Creat Ratio 16.83 Ratio (12.00-20.00); Blood Urea Nitrogen 20.2 mg/dL (9.0-27.0); Calcium 10.5 mg/dL (8.7-10.3); Carbon Dioxide 22.2 mmol/L (21.6-31.8); Chloride 103 mmol/L (96-109); Glucose 102 mg/dL (70-110); Potassium 4.4 mmol/L (3.5-5.5); Sodium 140 mmol/L (135-145); Total Bilirubin 0.6 mg/dL (0.3-1.2); Total Protein 7.4 g/dL (6.2-8.2)
[2024-01-25 19:39] LABS: Erythrocyte Sedimentation Rate 62 mm/Hr (0-30)
== END | disposition home or self-care (01) ==
LOC: LABWHC1 12:17
PROVIDERS: ATTEND Orthopaedic Surgery
DX: T81.30XA Disruption of wound, unspecified, initial encounter (principal)
CPT/HCPCS: 36415; 80053; 85027; 85652; 86140

== ENCOUNTER → 2024-01-26 | Outpatient (CLI) | payer MEDICARE, OTHER | END | disposition home or self-care (01) | LOC: RADMRIMAIN 12:48 | PROVIDERS: ATTEND Orthopaedic Surgery | DX: M54.50 Low back pain, unspecified (principal); M43.26 Fusion of spine, lumbar region ==

== ENCOUNTER 2024-02-15 10:05 | Inpatient (IN) | payer MEDICARE, OTHER ==
--- NOTE | 2024-02-15 06:39 | P.HPOR ---
History of Present Illness H&P Date: 01/31/24 Chief Complaint: Lumbar wound dehiscence with drainage The patient returns to the office today for a 9 week postop check of their second revision dura repair and I&D and approximately 10 months following her [id number] decompression and fusion. She presents for evaluation of her wound which has opened back up. [place] went in the hot tub. Two days later, the wound opened back up and was draining. No purulence, but there is a soft tissue mass that seems to be in the wound now. She states no PEREZ, N, V, blurred vision. She states no other issues and no back pain at this time. She states frustration with the situation, understandably. She was only 2 mo out from her most recent I&D and revision and was healing well. At the time of this I&D the cultures were negative for infection and she was treated appropriately. She healed well and was really doing find and seemed to be on the mend. She states no recent breaks in the skin before the hot tub, and she states that the heat has felt good on her muscles with a heating pad and so she figured a hot tub would be good as well. She denies any f/c/sob/cp. She denies any other sx at this time. The patients' past social, medical, family, surgical history, as well as review of systems, have been reviewed. Please refer to the Neurosurgery History and Physical form that has been scanned in to our electronic medical record system. 16 points review of systems completed and as stated in HPI, all other systems reviewed are negative. Review of Systems 16 points review of systems completed and as stated in HPI, all other systems reviewed are negative. Past Medical History Past Medical History: Diabetes Mellitus, Hyperlipidemia, Hypertension, Musculoskeletal Disorder, Osteoarthritis (OA) Additional Past Medical History / Comment(s): Degenerative Disc Disease. diet controlled History of Any Multi-Drug Resistant Organisms: MRSA Date of last positivie culture/infection: 09/09/23 MDRO Source:: Buttock Past Surgical History: Back Surgery, Cholecystectomy, Joint Replacement Additional Past Surgical History / Comment(s): Dental work, cataract surgery. multiple back surgeries, rt hip replaced Past Anesthesia/Blood Transfusion Reactions: No Reported Reaction Smoking Status: Never smoker - Past Family History Brother(s) Family Medical History: Cancer Additional Family Medical History / Comment(s): Lung cancer. Father Family Medical History: Cancer Additional Family Medical History / Comment(s): Melanoma. Medications and Allergies Home Medications Medication Instructions Recorded Confirmed Type Calcium Citrate/Vitamin D3 1 tab PO DAILY 03/15/23 02/12/24 History [Citracal + D Maximum Caplet] Ferrous Sulfate [Iron] 325 mg PO MOWEFR 05/07/23 02/12/24 History Niacin 500 mg PO DAILY 07/24/23 02/12/24 History Metoprolol Tartrate [Lopressor] 12.5 mg PO BID 90 Days #90 tab 07/27/23 02/12/24 Rx Folic Acid 800 mcg PO DAILY 11/06/23 02/12/24 History Multivitamins, Thera [Multivitamin 1 tab PO DAILY 11/06/23 02/12/24 History (formulary)] Sennosides/Docusate Sodium [Senna 1 each PO DAILY #20 capsule 11/07/23 02/12/24 Rx Plus 8.6-50 mg Softgel] Aspirin [Adult Low Dose Aspirin EC] 81 mg PO DAILY 02/12/24 02/12/24 History cefaDROXiL [Duricef] 500 mg PO BID 02/12/24 02/12/24 History Allergies Allergy/AdvReac Type Severity Reaction Status Date / Time ciprofloxacin [From Cipro] Allergy Rash/Hives Verified 02/12/24 15:18 poison jarek extract Allergy Rash/Hives Verified 02/12/24 15:18 Sulfa (Sulfonamide Allergy Unknown Verified 02/12/24 15:18 Antibiotics) Physical Examination Osteopathic Statement: *. No significant issues noted on an osteopathic structural exam other than those noted in the History and Physical/Consult. General: AOX3, NAD, Appears well nourished and well hydrated. Overall alignment well maintained at this time. Functional: Able to sit to stand. Unassisted in <5 sec Ambulates independently Incision: There is a 4x4 cm area of opening at the bottom 1/3 of the incision which is remote to her previous area of issues which has resolved and is slightly more cranial in the incision. This area is more caudal. There is drainage from the area that is serous. There is a soft tissue mass noted in this area which is likely either scar tissue or phlegmon type material. It is non painful. There is no evidence of CSF leak or pseudomeningocele in this area at this time. There is no Flucctuence. There is no fluid collection expressible at this time here. Mild erythema around the edges of the incision. MSK: FROM all major joints without restriction or pain 5/5 BUE all major muscle groups. 4+/5 BLE all major muscle groups -stable deconditioining, no focal or increased weakness. -ambulates with a cane for balance, but has recently only used this on occation as she has gotten stronger. Neuro: SILT C3-T1 and L2-S1 Reflexes 2/4 all UE and LE b/l Cardona's: NEG Clonus: NEG Babinski: NEG Carlos's: NEG No tensioning signs CN II-XII grossly intact Vascular: 2/4 Distal pulses all 4 ext, no edema Compartments soft and compressive Other: Abdomen soft, NTTP Respirations normal, non labored Results MRI of the Lumbar spine w/wo contrast done at [facility] is reviewed. There is what appears to be fluid collection deep in the lumbar region around the crosslink caudally. This may be putting pressure on the soft tissues and skin around the area. The pt has lost substantial weight since surgery and the hardware may be more prominent than it would have been previously. The pressure may be too much for the area. Cannot rule out infective process however due to the appearence of phelgmon in the area. No communication with the thecal sac appreciated. CT scan of T/L spine shows hardware in good position with good healing bone in the area. Assessment and Plan Assessment: 73 yo female s/p T10-P decompression fusion with subsequent washout for CSF leak s/p VDRF due to aspiration event 03/2023. Subsequent washout of wound 11/2023 with negative cultures. Recent wound dehiscence with drainage. Complex medical patient with hx DM and wound healing issues. Plan: Spine Surgery Clinical and Risk Review Giana Schultz is a 73-year-old female presenting for evaluation of lumbar wound drainage. It was my pleasure to have seen and examined Giana Schultz. In our visit today we have had a chance to go over subjective complaints, physical examination findings and treatments including the natural course history without intervention and various interventional options. The patients imaging demonstrates subfascial fluid collection with communication lumbar spine. On physical exam, Giana Schultz demonstrates lumbar wound dehiscence with drainage . I have explained to the patient that as their condition progresses it will cause further neurological deficits and eventual paralysis. Based on the patients imaging, physical exam, and the rapid progression and disabling nature of their symptoms, at this time I recommend surgery in the form or a: Incision and monique inage with irrigation debridement lumbar spine. I discussed the risk and benefits of this procedure at length with Rekha. The patient agreed to considered pursuing the procedure abovementioned. Prior to surgery, she should follow up with her PCP (Cardio, ID, IM etc) for clearance. Questions were invited and answered, and the patient wishes to proceed as outlined below. Currently, I am recommendin. Incision and drainage with irrigation and debridement lumbar spine 2. Follow up with PCP for surgical clearance 3. Review of surgical risks and benefits as well as an educational packet on the proposed surgical procedure. Risks: All surgical procedures come with inherent risks, including those related to positioning, anesthesia, intraoperative findings, and postoperative complications. It is important to understand that surgery does not come with any guarantee of a successful outcome as complications and adverse events are always possible. The patient was given a handout in office today discussing the surgical procedure and risks associated with the intervention, both of which were discussed with the patient. These risks include but are not limited to the following: * Experiencing same, different or even worse symptoms in back, neck, arms, or legs compared to before surgery. * Requiring further surgery or other forms of treatment presently or at some time in the future at same or other levels of the intended spine surgery. * On an extreme but fortunately relatively rare basis severe complication such as blindness, stroke, heart attack, temporary and/or permanent nerve injury, paralysis, coma, or may occur, sometimes without known exp lanation. * Surgical complications may include but are not limited to risk of infection, fluid accumulation in the surgical dissection site, including a seroma or hematoma, that requires additional surgery, wound drainage, bleeding, new numbness or weakness, vision changes/loss, spinal fluid leakage, non-healing and/or infected incision, headaches, difficulty or inability to swallow, hoarseness, hemopneumothorax, pneumothorax, impotence, retrograde ejaculation, vaginal dryness; injury to nerves, spinal cord, blood vessels, lymphatics or other vital organs (i.e., bowel injury, injury to the great vessels); heterotopic bone formation; complications related to the hardware such as screws, rods, cages including misplaced hardware, device failure, instrumentation at the wrong spine level, hardware fracture/breakage, or hardware loosening; vertebral failure of the spinal column above or below the newly placed hardware; retained surgical instrumentations or devices and the need for further surgery. * Medical risks of the planned spine surgery include but are not limited to generalized Infections to the whole body or local areas outside of the surgical site (sepsis), heart attack, bleeding, anaphylaxis, meningitis, seizure, epilepsy, hearing loss, burn lopez, laceration of the head or other areas of the body, bruising, hypersensitivity of the skin, bladder over distension; allergic reaction; shoulder injury related to positioning; fat, blood and air clots to other areas of the body like heart, lungs, brain; failure of internal organs such as lungs, kidneys, liver and excessive bleeding. If blood transfusions are necessary, note that transfusions may cause intolerance reactions such as anaphylaxis or other complex reactions. * Despite best efforts, the results of spine surgery might not heal in terms of bone, soft tissues such as skin, fascia, ligaments, and joints. Additionally, in order to achieve best possible results, spine surgery may be carried out beyond the initially planned levels and involve decompression, fusion including insertion of hardware at levels other than the original intended area of surgical interest change some portions of the procedure in order to ensure the best possible outcomes. * With spine surgery and spinal fusion, there are different off label uses of instrumentation (devices, implants and hardware) as well as biological s ubstances (bone morphogenic proteins, demineralized bone matrix) as well as using extra bone from allograft sources (i.e. cadaver bone) or autograft (iliac crest bone, ribs, or the spine itself). The patient has been given information about these practices and their inherent risks and benefits. The patient has had a chance to review all the listed information, has been given print outs detailing this information, and has had all his/her questions answered to their satisfaction. It was my pleasure to have seen and examined Giana Schultz. In our visit today we have had a chance to go over my understanding of our patient's current condition, the natural course history without intervention and various interventional options. Questions were invited and answered, and the patient wishes to proceed as outlined above. I have seen and examined the patient for 25 minutes and we have spent more than 50% of the time in repeat and detailed counseling about the patient's condition, its natural course history with out and as much as can be predicted with surgery and re-review of various surgical treatment options. In conclusion, Giana Schultz and her requested we proceed with the above suggested surgery and are willing to accept risks and limitations of the suggested surgery as nature of the disease process and our best attempts at treatment for the condition. Thank you again for allowing us to be part of your patient's care. Please don't hesitate to contact me if you have any further questions. Signed and authenticated by: Lei Trinidad [facility] [address] [place] [address]
[~2024-02-15 10:05] MED LIST changes: -LIDOCAINE 1% (10MG/ML) FOR IV START INTRADERMA PRN; +VANCOMYCIN 1,000 MG in SODIUM CHLORIDE 0.9% 250 ML IVPB PRN
[2024-02-15] MEDS: IV FLUID CONTINUATION 1,000 ML IV ONE (11:00)
[2024-02-15 11:07] LABS: Glucose,Whole Blood 108 mg/dL (70-110)
[2024-02-15] MEDS: ONDANSETRON 4 MG/2 ML VIAL IVP ONE (11:16)
[2024-02-15] MEDS: GABAPENTIN 300 MG CAP PO PRN (11:16)
[2024-02-15] MEDS: ACETAMINOPHEN TAB 500 MG TAB PO PRN (11:16)
[2024-02-15] MEDS: DEXAMETHASONE SOD PHOSPHATE 4 MG/ML 1 ML VIAL IV ONE (11:17)
[2024-02-15 11:18] LABS: HCT 36.7 % (34.0-46.0); HGB 11.9 gm/dL (11.4-16.0); MCH 30.7 pg (25.0-35.0); MCHC 32.4 g/dL (31.0-37.0); Mean Platelet Volume 7.1; Platelet Count 276 k/uL (150-450); RBC 3.87 m/uL (3.80-5.40); RDW 13.7 % (11.5-15.5); WBC 8.9 k/uL (3.8-10.6)
[2024-02-15 11:32] LABS: ALT 19 U/L (4-34); AST 22 U/L (14-36); African American GFR (CKD) 59 (>60 ml/min/1.73 sqM); Albumin 4.3 g/dL (3.5-5.0); Alkaline Phosphatase 84 U/L (38-126); Anion Gap 9 mmol/L; Blood Urea Nitrogen 34 mg/dL (7-17); Carbon Dioxide 20 mmol/L (22-30); Chloride 111 mmol/L (98-107); Glucose 104 mg/dL (74-99); Non-African American GFR(CKD) 51 (>60 ml/min/1.73 sqM); Potassium 4.4 mmol/L (3.5-5.1); Sodium 140 mmol/L (137-145); Total Bilirubin 0.7 mg/dL (0.2-1.3); Total Protein 7.5 g/dL (6.3-8.2)
[2024-02-15] MEDS ORDERED: NEOSTIGMINE 1 MG/ML 10 ML VIAL ONE (13:48)
[2024-02-15] MEDS ORDERED: WATER FOR INJECTION, STERILE 10 ML VIAL IV ONE (13:48)
[2024-02-15] MEDS ORDERED: SUCCINYLCHOLINE CHLORIDE 200 MG/10 ML VIAL IV ONE (13:48)
[2024-02-15] MEDS ORDERED: PHENYLEPHRINE-0.9% NACL SYG 1,000 MCG/10 ML SYRINGE ONE (13:48)
[2024-02-15] MEDS ORDERED: ROCURONIUM 10 MG/ML (5 ML VIAL) IV ONE (13:48)
[2024-02-15] MEDS ORDERED: fentaNYL (PF) 50 MCG/ML 2 ML AMP ONE (13:48)
[2024-02-15] MEDS ORDERED: PROPOFOL 10 MG/ML 20 ML VIAL IV ONE (13:48)
[2024-02-15] MEDS ORDERED: TRANEXAMIC 1,000 MG/100ML-NACL PREMIX BAG ONE (13:48)
[2024-02-15] MEDS ORDERED: ePHEDrine 50 MG/ML 1 ML VIAL ONE (13:48)
[2024-02-15] MEDS ORDERED: GLYCOPYRROLATE 0.2 MG/ML 2 ML VIAL ONE (13:48)
[2024-02-15] MEDS ORDERED: LIDOCAINE 1% INJ 10MG/ML (20 ML MDV) ONE (13:48)
[2024-02-15] MEDS: GENTAMICIN 80 MG in SODIUM CHLORIDE 0.9% IRRIGATIO 3,000 ML IRRIGATION ONE (14:17)
[2024-02-15] MEDS: ceFAZolin 3,000 MG in SODIUM CHLORIDE 0.9% IRRIGATIO 3,000 ML IRRIGATION ONE (14:17)
[2024-02-15] MEDS: LACTATED RINGERS 1,000 ML IV ONE ×2 (14:59→17:13)
[2024-02-15] MEDS: VANCOMYCIN 1,000 MG VIAL MISCELLANE ONE ×2 (14:59→15:09)
[2024-02-15] MEDS: TOBRAMYCIN SULFATE 1.2 GM VIAL MISCELLANE ONE (15:00)
[2024-02-15] MEDS ORDERED: bisacodyL 10 MG SUPP RECTAL PRN (16:16)
[2024-02-15] MEDS ORDERED: HYDROmorphone 0.5 MG/0.5 ML SYRINGE IVP PRN (16:16)
[2024-02-15] MEDS ORDERED: HYDROmorphone 1 MG/ML 1 ML SYRINGE IVP PRN (16:16)
[2024-02-15] MEDS ORDERED: HYDROcodone/APAP 10-325MG 1 EACH TAB PO PRN (16:16)
[2024-02-15] MEDS ORDERED: MAGNESIUM HYDROXIDE 2,400 MG/30 ML CUP PO PRN (16:16)
[2024-02-15] MEDS ORDERED: CYCLOBENZAPRINE 5 MG TAB PO PRN (16:16)
[2024-02-15] MEDS ORDERED: NA PHOS,M-B/NA PHOS,DI-BA 133 ML ENEMA RECTAL PRN (16:16)
[2024-02-15] MEDS ORDERED: HYDROcodone/APAP 7.5-325MG 1 EACH TAB PO PRN (16:20)
[2024-02-15] MEDS: HYDROmorphone 0.5 MG/0.5 ML SYRINGE IVP PRN (16:29)
--- NOTE | 2024-02-15 16:37 | P.OP ---
Date of Procedure: 02/15/24 Preoperative Diagnosis: Current Active Problems Dehiscence of surgical wound (Acute) History of lumbar fusion (Acute) Wound infection after surgery (Acute) Hypertension (Chronic) Hyperlipidemia associated with type 2 diabetes mellitus (Chronic) Diabetes 1.5, managed as type 2 (Chronic) Weakness (Chronic) Postoperative Diagnosis: Current Active Problems Dehiscence of surgical wound (Acute) History of lumbar fusion (Acute) Wound infection after surgery (Acute) Hypertension (Chronic) Hyperlipidemia associated with type 2 diabetes mellitus (Chronic) Diabetes 1.5, managed as type 2 (Chronic) Weakness (Chronic) Procedure(s) Performed: 1. INCISION AND DRAINAGE LUMBAR SPINE 30 X 20 X 8 CM WITH IRRIGATION AND DEBRIDEMENT SKIN SOFT TISSUE, MUSCLE AND BONE USING THE FOLLOWING -SKIN KINFE TO REMOVE SKIN AND TRACT -CURETTE TO SCRAPE AND DEBRIDE BONE -RONGURE TO REMOVE BONE AND SOFT TISSUES 2. EVACUATION OF SUBFACIAL ABSCESS LUMBAR SPINE 3. REMOVAL OF HARDWARE LUMBAR SPINE, REMOVAL OF CROSSLINKS X2 4. EXPLORATION OF FUSION LUMBAR SPINE 5. COMPLEX 3 LAYERED CLOSURE LUMBAR SPINE [id number] Implants: STIMULAN BEADS Anesthesia: MORIAHA Surgeon: Lei Duong Regrinder Operator #1: Modesto Cho (WAS PRESENT AND ASSISTED WITH ALL ASPECST OF THE CASE FROM POSITION TO DRESSING PLACEMENT) Estimated Blood Loss (ml): 100 IV fluids (ml): 1,200 Urine output (ml): 0 Pathology: other (X3 LUMBAR SPINE) Condition: stable Disposition: PACU Indications for Procedure: Giana Schultz is a 73-year-old female presenting for evaluation of lumbar wound drainage. It was my pleasure to have seen and examined Giana Schultz. In our visit today we have had a chance to go over subjective complaints, physical examination findings and treatments including the natural course history without intervention and various interventional options. The patients imaging demonstrates subfascial fluid collection with communication lumbar spine. On physical exam, Giana Schultz demonstrates lumbar wound dehiscence with drainage . I have explained to the patient that as their condition progresses it will cause further neurological deficits and eventual paralysis. Based on the patients imaging, physical exam, and the rapid progression and disabling nature of their symptoms, at this time I recommend surgery in the form or a: Incision and drainage with irrigation debridement lumbar spine. I discussed the risk and benefits of this procedure at length with Rekha. The patient agreed to considered pursuing the procedure abovementioned. Prior to surgery, she should follow up with her PCP (Cardio, ID, IM etc) for clearance. Questions were invited and answered, and the patient wishes to proceed as outlined below. Currently, I am recommendin. Incision and drainage with irrigation and debridement lumbar spine Description of Procedure: LUMBAR INCISION AND DRAINAGE WITH IRRIGATION AND DEBRIDEMENT The patient was seen and examined in the preoperative area. All preoperative protocols were followed. Informed consent was obtained, risks and benefits of the procedure were discussed at length. Risks including bleeding infection damage to the surrounding tissue and risk of reoperation were discussed with the patient. Risk of anesthesia up to and including was discussed with the patient. These are outlined in the risk review. They were willing to accept these risks and all of the risks of surgery. The patient was given a weight- based dose of antibiotics in the form of 2 g Ancef with a weight-based dose of vancomycin. The patient was seen and evaluated by the anesthesia team who deemed them fit for surgery. The site was marked, the patient was willing to proceed with the procedure. The patient was transferred to the operative suite by the Department of anesthesia. They were then drifted off to sleep by the department anesthesia and GETA was performed. The patient tolerated this well. [Garnett catheter was placed by nursing staff, atraumatically]. Once confirmation of lines and ventilation the patient was transferred to a [prone Jose table very carefully]. All bony prominences including wrists, elbows, axilla, chest, hips, and thighs, and feet were padded very well. Special attention was paid to the genitalia and these were padded accordingly. SCDs were placed on bilateral lower extremities and were connected. Arms were well padded and placed [on arm boards up and out in the 90/90 position]. Once in position, again we confirmed good ventilation capabilities and that lines were running appropriately. The pat ient's thoracolumbar spine was then exposed. 1010s were placed outlining the incision site. Standard alcohol was used to clean the incision site and allowed to dry. C-arm was used to biomark the patient and confirm level for incision which was marked with a skin marker. Operative briefing was performed with all teams and everyone in agreement to proceed. The patient was then prepped and draped in a normal sterile fashion. Timeout was then performed and all parties were in agreement with the procedure to be performed. Midline skin incision was then made over the previously bio marked area and dissection taken down to the fascia which was identified. The area which was open on the skin was ellipticized with a skin knife and removed. The tract was then removed using a skin knife and Bovie. We noted on the way down that there was a lot of bone formation along this tract and that there were bony fragments that had formed within the fascial layers of this area. These were removed.f ascia was then split midline and taken down. Cross-links were very prominent in this area and were pushing against the fascia. There was fluid collection down here which was somewhat purulent. Nature cultures were taken superficial and deep of the lumbar spine in this area as well as specimens. We then dissected out over the hardware laterally to expose the rods for removal of the cross- links and hardware. Once this was completed the hardware was removed without issue. I then proceeded with debridement using curette to debride bone and bony fragments as well as phlegmon type material in this area as well as [place]. Steve was used to removing bone and soft tissue. We then irrigated the area with Irrisept solution and let it stand for 1 minute. We then irrigated the area out with normal sterile saline. Further debridement was then done with curettes and Nasra to remove any bony fragments are phlegmon tissue. We then once again irrigated with Betadine solution and 1 L. This was allowed to stand for 1 minute as well. We then irrigated this out with normal sterile saline and continued with debridement. Irrisept 1 L was then used again and let stand for 1 minute was then followed by normal sterile saline washout. We then ended with 1 L of Betadine solution which was then let stand for 1 minute and irrigated out completely. We then irrigated with 3 L of an Ancef solution along with 3 L of gentamicin solution along with 6 L of normal sterile saline well debriding skin soft tissue and bone in this area removing any phlegmonous type tissue or bony fragments. Once irrigation and debridement was completed we inspected the area and explored the fusion. There were good bony fragments and bone formation posterior lateral. There was no leak of CSF. There are no issues noted. Hemostasis was achieved. We then placed deep within the wound a drain subfascially. 2 g of vancomycin powder was placed deep in the room along with stimulated and beads which had tobramycin and vancomycin within them and there were small beads. Once these were placed and the area was secured we proceeded with layered closure first in the deep fascia with #1 PDS in a simple fashion. deep subcu tissues and closed with 0 vicryl superficial subcu tissues closed with 2-0 vicryl and skin was closed with 2-0 nylon in a simple fashion. wound edges approximated very well. the drain was then sewn in place with a nylon stitch. The drain was connected and had good suction and inflow. The wound was then cleaned and dressed sterilely with Adaptic 4 x 4s ABDs and foam tape. The patient was transferred back to their hospital bed atraumatically. [Drain continued to hold suction and were in a good position]. Patient was then awakened and extubated by the department of anesthesia having tolerated the procedure very well with no complications. They were transferred to the postoperative care unit in stable condition.
[2024-02-15] MEDS: LACTATED RINGERS 1,000 ML IV SCH (16:58)
[2024-02-15 17:11] LABS: Glucose,Whole Blood 166 mg/dL (70-110)
[2024-02-15] MEDS: KETOROLAC 15 MG/ML 1 ML VIAL IVP SCH (18:08)
[2024-02-15] MEDS: ACETAMINOPHEN TAB 325 MG TAB PO SCH (18:09)
[2024-02-15 20:28] LABS: Glucose,Whole Blood 162 mg/dL (70-110)
[2024-02-15] MEDS: CEFEPIME 2 GM in SODIUM CHLORIDE 0.9% 100 ML IVPB SCH (23:26)
--- NOTE | 2024-02-16 03:48 | P.CONS ---
History of Present Illness - Reason for Consult Consult date: 02/15/24 medical management - Chief Complaint back surgery - History of Present Illness 73 year old female with hypertension patient coming in for scheduled lower back surgery due to surgical wound dehis cence post lumbar fusion , tolerated procedure well, no observed immediate post operative complications, denies chest pain , SOB. tolerated PO intake , and ambulated with assistance. passed urine with no difficulties. denies any new focal neuro deficits review of systems Pertinent positives as noted in HPI. All other systems were reviewed and are negative on exam Constitutional: No acute distress, conversant, pleasant Eyes: Anicteric sclerae, moist conjunctiva, Pupils equal round reactive to light ENMT: NC/AT Oropharynx clear, no erythema, or exudates Neck: Supple, no masses, or JVD No carotid bruits No thyromegaly Lungs: Clear to auscultation Clear to percussion Normal respiratory effort, no accessory muscle use Cardiovascular: Heart regular in rate and rhythm, No murmurs, gallops, or rubs No peripheral edema Abdominal: Soft Nontender, no guarding, rebound or rigidity Abdomen moving with respiration Normoactive bowel sounds Extremities: No digital cyanosis No clubbing Pedal pulses intact and symmetrical Radial pulses intact and symmetrical No calf tenderness Psychiatric: Alert and oriented to person, place and time Appropriate affect fair judgement Neuro Muscles Strength 5/5 in all 4 extremities Sensation to light touch grossly present throughout Cranial nerves II-XII grossly intact Past Medical History Past Medical History: Diabetes Mellitus, Hyperlipidemia, Hypertension, Musculoskeletal Disorder, Osteoarthritis (OA) Additional Past Medical History / Comment(s): Degenerative Disc Disease. diet controlled History of Any Multi-Drug Resistant Organisms: MRSA Year Discovered:: 09/09/23 MDRO Source:: Buttock Past Surgical History: Back Surgery, Cholecystectomy, Joint Replacement Additional Past Surgical History / Comment(s): Dental work, cataract surgery. multiple back surgeries, rt hip replaced Past Anesthesia/Blood Transfusion Reactions: No Reported Reaction Past Psychological History: No Psychological Hx Reported Smoking Status: Never smoker Past Alcohol Use History: Rare Past Drug Use History: None Reported - Past Family History Brother(s) Family Medical History: Cancer Additional Family Medical History / Comment(s): Lung cancer. Father Family Medical History: Cancer Additional Family Medical History / Comment(s): Melanoma. Medications and Allergies Home Medications Medication Instructions Recorded Confirmed Type Calcium Citrate/Vitamin D3 1 tab PO DAILY 03/15/23 02/12/24 History [Citracal + D Maximum Caplet] Ferrous Sulfate [Iron] 325 mg PO MOWEFR 05/07/23 02/12/24 History Niacin 500 mg PO DAILY 07/24/23 02/12/24 History Metoprolol Tartrate [Lopressor] 12.5 mg PO BID 90 Days #90 tab 07/27/23 02/12/24 Rx Folic Acid 800 mcg PO DAILY 11/06/23 02/12/24 History Multivitamins, Thera [Multivitamin 1 tab PO DAILY 11/06/23 02/12/24 History (formulary)] Sennosides/Docusate Sodium [Senna 1 each PO DAILY #20 capsule 11/07/23 02/12/24 Rx Plus 8.6-50 mg Softgel] Aspirin [Adult Low Dose Aspirin EC] 81 mg PO DAILY 02/12/24 02/12/24 History cefaDROXiL [Duricef] 500 mg PO BID 02/12/24 02/12/24 History Allergies Allergy/AdvReac Type Severity Reaction Status Date / Time ciprofloxacin [From Cipro] Allergy Rash/Hives Verified 02/15/24 10:44 poison jarek extract Allergy Rash/Hives Verified 02/15/24 10:44 Sulfa (Sulfonamide Allergy Unknown Verified 02/15/24 10:44 Antibiotics) Physical Exam Vitals: Vital Signs Temp Pulse Resp BP Pulse Ox 02/16/24 01:46 98.9 F 53 L 18 100/51 100 02/15/24 19:49 98.9 F 53 L 18 102/44 100 02/15/24 17:37 97.5 F L 54 L 18 150/67 100 02/15/24 16:55 67 18 123/61 99 02/15/24 16:40 53 L 18 139/60 100 02/15/24 16:25 67 18 137/63 100 02/15/24 16:10 97.3 F L 72 12 144/65 100 02/15/24 10:53 97.8 F 68 20 195/74 98 Intake and Output 02/15/24 02/15/24 02/16/24 14:59 22:59 06:59 Intake Total 1852 200 Output Total 360 Balance 1852 -160 Intake: IV 185 200 Output: Drainage 260 Medial Back 260 Estimated Blood Loss 100 Other: # Voids 1 Weight 67.4 kg 67.4 kg Results CBC & Chem 7: 02/15/24 11:00 02/15/24 11:00 Labs: Abnormal Lab Results - Last 24 Hours (Table) 02/15/24 02/15/24 02/15/24 Range/Units 11:00 17:10 20:27 Chloride 111 H (98-107) mmol/L Carbon Dioxide 20 L (22-30) mmol/L BUN 34 H (7-17) mg/dL Creatinine 1.09 H (0.52-1.04) mg/dL Glucose 104 H (74-99) mg/dL POC Glucose (mg/dL) 166 H 162 H (70-110) mg/dL Assessment and Plan Assessment: hypertension , controlled continue with metoprolol DM dietary control insulin sliding scale surgical wound infection POD zero management per orthopedic team follow up culture continue vanco follow up CBC , BMP thank you for this consultation
[2024-02-16] MEDS ORDERED: DEXTROSE 50% SYRINGE 50 ML IVP PRN ×2 (03:55)
[2024-02-16 05:44] LABS: Glucose,Whole Blood 104 mg/dL (70-110)
[2024-02-16] MEDS ORDERED: VANCOMYCIN IV PER PHARMACY 1 EACH MISC MISCELLANE SCH (06:00)
[2024-02-16] MEDS: INSULIN ASPART (NovoLOG) 100 UNIT/ML VIAL SQ SCH (06:16)
[2024-02-16 08:42] LABS: C Reactive Protein 1.7 mg/dL (<1.0)
[2024-02-16 09:34] LABS: African American GFR (CKD) 55 (>60 ml/min/1.73 sqM); Anion Gap 7 mmol/L; Blood Urea Nitrogen 30 mg/dL (7-17); Calcium 9.4 mg/dL (8.4-10.2); Carbon Dioxide 20 mmol/L (22-30); Chloride 112 mmol/L (98-107); Glucose 83 mg/dL (74-99); Non-African American GFR(CKD) 47 (>60 ml/min/1.73 sqM); Potassium 4.6 mmol/L (3.5-5.1); Sodium 139 mmol/L (137-145)
[2024-02-16] MEDS: METOPROLOL TARTRATE 12.5 MG TAB PO SCH (10:05)
[2024-02-16] MEDS: FOLIC ACID 1 MG TAB PO SCH (10:11)
[2024-02-16] MEDS: MULTIVITAMINS, THERA 1 EACH TAB PO SCH (10:12)
[2024-02-16] MEDS: FERROUS SULFATE 325 MG TAB PO SCH (10:12)
[2024-02-16] MEDS: SENNOSIDES-DOCUSATE SODIUM 1 EACH TAB PO SCH (10:12)
[2024-02-16] MEDS: polyethylene glycoL 3350 17 GM POWD.PACK PO SCH (10:12)
--- NOTE | 2024-02-16 10:12 | P.PN ---
Subjective Progress Note Date: 02/16/24 Principal diagnosis: Dehiscence of surgical wound (Acute) History of lumbar fusion Patient was seen at bedside this morning and just finished working with physical therapy. She says she has walked around the hallway a couple times with the use of walker. She says she is having minimal pain to the low back at this time. Patient says she has urinated since surgery yesterday without issue. She says she has not had a bowel yet, however, she has been passing gas. Patient denies any other orthopedic complaints at this time. Objective - Vital Signs Vital signs: Vital Signs Temp 97.4 F L 02/16/24 07:12 Pulse 50 L 02/16/24 07:12 Resp 17 02/16/24 07:12 BP 112/58 02/16/24 07:12 Pulse Ox 100 02/16/24 07:12 FiO2 Intake & Output 02/15/24 02/16/24 02/16/24 18:59 06:59 18:59 Intake Total 2051 Output Total 360 160 Balance 1692 -160 Weight 67.4 kg Intake: IV 2051 Output: Drainage 260 160 Medial Back 260 160 Estimated Blood Loss 100 Other: # Voids 1 1 - Exam 160 cc serosanguineous output in drain overnight. Will maintain drain at this time. Dressing appears to be clean, dry, intact. Maintain dressing at this time. Sensation is equal, symmetric, by intact at the upper and lower extremities on exam. Fair amount of tenderness to patient diffusely throughout the low back at midline near incision. Nontender to palpation throughout rest of exam. Patient has good range of motion throughout bilateral upper and lower extremities on exam. 4/5 in all major motor groups in bilateral upper and lower extremities. Radial pulse intact, 2+ bilaterally. Cap refill under 3 seconds in digits of upper extremities. Negative Homans bilaterally. - Labs CBC & Chem 7: 02/15/24 11:00 02/16/24 06:54 Labs: Abnormal Lab Results - Last 24 Hours (Table) 02/15/24 02/15/24 02/15/24 Range/Units 11:00 17:10 20:27 Chloride 111 H (98-107) mmol/L Carbon Dioxide 20 L (22-30) mmol/L BUN 34 H (7-17) mg/dL Creatinine 1.09 H (0.52-1.04) mg/dL Glucose 104 H (74-99) mg/dL POC Glucose (mg/dL) 166 H 162 H (70-110) mg/dL C-Reactive Protein (<1.0) mg/dL 02/16/24 Range/Units 06:54 Chloride 112 H (98-107) mmol/L Carbon Dioxide 20 L (22-30) mmol/L BUN 30 H (7-17) mg/dL Creatinine 1.15 H (0.52-1.04) mg/dL Glucose (74-99) mg/dL POC Glucose (mg/dL) (70-110) mg/dL C-Reactive Protein 1.7 H (<1.0) mg/dL Assessment and Plan Assessment: Dehiscence of surgical wound (Acute) History of lumbar fusion -Postop day 1 status post lumbar wound incision and drainage and irrigation debridement Plan: 1. Dehiscence of surgical wound (Acute); History of lumbar fusion -surgery performed yesterday, , 02/15/2024incision and drainage and irrigation debridement of lumbar wound. Patient stable at bedside this morning with drain dressing in place. Moderate serosanguineous output in drain. Will maintain drain at this time. Dressing appears to be clean, dry, intact. Assess dressings daily. PT/OT daily. Pain medication as needed. We will continue to follow patient during stay in hospital. Plan for discharge home within the next few days 2. Appreciate medical management 3. Pain management - tylenol; norco; flexeril 4. DVT prophylaxis - mechanical 5. GI prophylaxis - senna; miralax; milk of mag 6. PT/OT -bearing as tolerated with a walker 7. Encourage incentive spirometer use 8. Discharge planning - Plan for discharge home within the next few days Time with Patient: Less than 30
[2024-02-16 10:27] LABS: Basophils # (A) 0.07 X 10*3/uL (0.00-0.10); Basophils % (A) 0.7 %; Eosinophils % (A) 2.1 %; HCT 30.9 % (37.2-46.3); HGB 9.5 g/dL (12.0-15.0); Lymphocytes # (A) 2.02 X 10*3/uL (0.90-5.00); Lymphocytes % (A) 21.1 %; MCH 30.1 pg (27.0-32.0); MCHC 30.7 g/dL (32.0-37.0); MCV 97.8 FL (80.0-97.0); Mean Platelet Volume 9.8 FL (9.5-12.2); Monocytes # (A) 0.77 X 10*3/uL (0.20-1.00); NRBC Per 100 WBC 0 X 10*3/uL (0.00-0.01); Neutrophils # (A) 6.49 X 10*3/uL (1.80-7.70); Neutrophils % (A) 67.8 %; Platelet Count 199 X 10*3/uL (140-440); RBC 3.16 X 10*6/uL (4.10-5.20); RDW 13.8 % (11.5-14.5); WBC 9.58 X 10*3/uL (4.50-10.00)
--- NOTE | 2024-02-16 11:24 | XR ---
EXAMINATION TYPE: XR lumbar spine 2 or 3V DATE OF EXAM: 02/15/2024 3:28 PM CLINICAL INDICATION:Female, 73 years old with history of REMOVAL OF HARDWARE; H COMPARISON: None TECHNIQUE: XR lumbar spine 2 or 3V - Frontal, lateral and coned down L5-S1 lateral views of the lumba r spine. FINDINGS: 5 fluoroscopic spot views were obtained intraoperatively during lumbar spine procedure and saved to [facility]. Total exposure time recorded 1.7 seconds. Please refer to operative note for full details. IMPRESSION: Documentation of fluoroscopy.
[2024-02-16] MEDS: NIACIN TR 500 MG CAPLET PO SCH (11:49)
[2024-02-16 12:21] LABS: Erythrocyte Sedimentation Rate 30 mm/Hr (0-30)
--- NOTE | 2024-02-16 12:49 | CDI ---
Documentation Clarification Form Date: 02/16/2024 12:15:15 PM From: Emily Jackson RN CCDS Phone: [phone] Admit Date: 02/15/2024 10:05:00 AM Patient Name: Giana Schultz Visit Number: [id number] Discharge Date: ATTENTION: The Clinical Documentation Specialists (CDI) and [facility] Coding Staff appreciate your assistance in clarifying documentation. Please respond to the clarification below the line at the bottom and electronically sign. The CDI & [facility] Coding staff will review the response and follow-up if needed. Please note: Queries are made part of the Legal Health Record. If you have any questions, please contact the author of this message via ITS. Dr. Lei Rockwell debridement is documented 02/14, Surgical note. Additional clarification regarding the procedure is requested. History/Risk Factors:73 year female presented with surgical wound dehiscence for surgery. Medical history: DM1 and HTN. 02/14, HP. Clinical Indicators: 02/14, Procedure note: Debridement skin soft tissue, muscle and bone using the following. Skin knife to remove skin and tract. Curette to scrape and debride bone. Rongure to remove bone and soft tissue. Treatment: Debridement of skin, soft tissue muscle and bone. Please clarify the type of procedure performed: [ ] Excisional debridement (the removal of necrotic, devitalized tissue or slough by means of cutting away of tissue) [ ] Non-excisional debridement (the removal of necrotic, devitalized tissue or slough by means of flushing, brushing, or washing. (Irrigation) [ ] Other; please specify [ ] Unable to determine Five elements required for accurate and compliant documentation of a debridement: Technique used (e.g., excisional, excised, cutting, brushing, jet lavage etc.) Instrument(s) used (e.g., scalpel, curette, etc.) Nature of the tissue removed (e.g., necrotic, devitalized tissues, non-viable tissue, etc.) Appearance and size of the wound (e.g., down to fresh bleeding tissue, 7cm x 10cm, etc.) Depth of the debridement* (e.g., skin, subcutaneous tissue, fascia, muscle, bone, etc.) (Template Last Revised: November 2020) Excisional debridement (the removal of necrotic, devitalized tissue or slough by means of cutting away of tissue) [facility]
--- NOTE | 2024-02-16 13:51 | P.PN ---
Subjective Progress Note Date: 02/16/24 Hospital course: Patient is a very pleasant 73-year-old female with a past medical history of hypertension, hyperlipidemia, [id number] diabetes mellitus, chronic kidney disease stage IIIa, osteoarthritis, and degenerative disc disease with chronic back pain status post multiple surgical procedures. She is currently admitted under orthospine surgical team secondary to dehiscence of surgical wound with infection status post recent lumbar fusion. Orthospine surgery took patient to the OR on for incision and drainage of lumbar spine with irrigation and debridement of soft tissue, muscle, and bone. We are consulted for medical management throughout hospitalization. Physical exam: Patient was seen and fully evaluated at bedside this morning. Patient reports postoperative pain is controlled, describes a burning sensation only at incision site otherwise denies having any complaints or pain, questions, needs, or concerns. Vital signs reviewed and stable. General: Nontoxic, no distress and appears stated age. Derm: Skin warm and dry, normal coloration for ethnicity. Head: Atraumatic, normocephalic and symmetric. Eyes: EOMs intact, no lid lag, and anicteric sclera Mouth: no lip lesions, mucus membranes moist Cardiovascular: regular rate and rhythm with normal S1S2, no murmur, positive posterior tibial pulses bilaterally, and cap refill < 2 seconds. Lungs: Respirations even, regular, and unlabored on room air. Lungs CTA bilaterally, no rhonchi, no rales, no wheezing, and no accessory muscle usage. Abdominal: soft, nontender to palpation, no guarding, no appreciable organomegaly Ext: ROM intact. No gross muscle atrophy, no edema, no contractures Neuro: Speech clear, face symmetrical and CN II-XII grossly intact with no noted focal neuro deficits Psych: Alert and oriented to person, place, time, and situation. Appropriate and pleasant affect. Assessment and Plan of Care: Status post incision and drainage of lumbar spine with irrigation and debridement of soft tissue, muscle, and bone. -Management per primary admitting orthospine surgery team including DVT prophylaxis, pain management, wound/dressing management, and PT/OT. -Infectious disease consulted for recommendations of antibiotics. Postsurgical infection of lumbar spine -Continue IV antibiotics with cefepime 2 g every 8 hours and vancomycin 1250 mg every 24 hours. Monitor renal function and vancomycin trough closely for any signs of vancomycin associated renal toxicity. -Follow-up on wound culture results. Postoperative bradycardia, asymptomatic Hypertension -Continue metoprolol 12.5 mg twice daily, discussed with RN to hold for heart rate less than 60. -Patient placed on telemetry monitoring and an EKG to be obtained. Acute postoperative blood loss anemia. -Preoperative hemoglobin 11.9 with postoperative hemoglobin of 9.5. This is a stable and expected postoperative finding. No need for transfusion or further intervention at this time. Diabetes mellitus with hyperglycemia -Continue glycemic protocol with NovoLog sliding scale. Chronic kidney disease stage IIIa -Renal function stable and at baseline with BUN 30, creatinine 1.15, GFR 47. Data and imaging reviewed: -Morning labs reviewed. CBC nohemy macrocytic anemia with hemoglobin of 9.5 and MCV of 97.8. BMP showing mild metabolic acidosis with chloride of 112, bicarb 20, and anion gap of 70. Renal function showing elevated BUN of 30, creatinine 1.15, and GFR 47. -Vital signs reviewed. Blood pressure 112/58, heart rate 50, respiratory rate 17, temp 97.4 F, and SpO2 of 100% on room air. Thank you for allowing us to participate in the care of this pleasant patient. Do not hesitate to contact us with questions. Someone can be reached from the [facility] hospitalist group all hours of the day at [phone] or via [employer] serve. Patient was seen independently by Nurse Pracitioner. This document was prepared using [employer] dictation software. Please allow for errors in aquatic habitat biologist, while rare they do occur. I reviewed the documentation as provided by the MIKE above, who is the original author of this note. I agree with the documented assessment and plan, with the following changes: none Objective - Vital Signs Vital signs: Vital Signs Temp 97.4 F L 02/16/24 07:12 Pulse 50 L 02/16/24 07:12 Resp 17 02/16/24 07:12 BP 112/58 02/16/24 07:12 Pulse Ox 100 02/16/24 07:12 FiO2 Intake & Output 02/15/24 02/16/24 02/16/24 18:59 06:59 18:59 Intake Total 2051 Output Total 360 160 Balance 1692 -160 Weight 67.4 kg Intake: IV 2051 Output: Drainage 260 160 Medial Back 260 160 Estimated Blood Loss 100 Other: # Voids 1 1 - Labs CBC & Chem 7: 02/16/24 06:54 02/16/24 06:54 Labs: Abnormal Lab Results - Last 24 Hours (Table) 02/15/24 02/15/24 02/15/24 Range/Units 11:00 17:10 20:27 Chloride 111 H (98-107) mmol/L Carbon Dioxide 20 L (22-30) mmol/L BUN 34 H (7-17) mg/dL Creatinine 1.09 H (0.52-1.04) mg/dL Glucose 104 H (74-99) mg/dL POC Glucose (mg/dL) 166 H 162 H (70-110) mg/dL
[2024-02-16] MEDS: VANCOMYCIN 1,250 MG in SODIUM CHLORIDE 0.9% 250 ML IVPB SCH (15:08)
[2024-02-16 15:11] VITALS: BMI 24.7
[2024-02-16 20:47] LABS: Glucose,Whole Blood 109 mg/dL (70-110)
--- NOTE | 2024-02-16 22:40 | P.CONS ---
History of Present Illness - Reason for Consult Consult date: 02/16/24 - History of Present Illness Patient is a 73-year-old female with a past medical history significant diabetes mellitus hypertension hyperlipidemia osteoarthritis in this patient who did have a [id number] decompression and fusion subsequently did have a wound revision and dural repair and I&D 9 weeks postop patient has been evaluated and noticed to have a open back wound apparently the patient [place] and use a hot tub 2 days later the wound opened back up and was draining no purulence patient denies high-grade fever or any chills or any worsening pain to the lower back area no headache no nausea no vomiting no chest pain shortness of breath or cough no abdominal pain or any diarrhea patient was admitted to the hospital taken to the OR and is status post incision and drainage of the lumbar spine with debridement of this skin soft tissue muscle and wound deep culture has been obtained patient was started on vancomycin infectious disease was consulted for further management of antibiotic therapy Past Medical History Past Medical History: Diabetes Mellitus, Hyperlipidemia, Hypertension, Musculoskeletal Disorder, Osteoarthritis (OA) Additional Past Medical History / Comment(s): Degenerative Disc Disease. diet controlled History of Any Multi-Drug Resistant Organisms: MRSA Year Discovered:: 09/09/23 MDRO Source:: Buttock Past Surgical History: Back Surgery, Cholecystectomy, Joint Replacement Additional Past Surgical History / Comment(s): Dental work, cataract surgery. multiple back surgeries, rt hip replaced Past Anesthesia/Blood Transfusion Reactions: No Reported Reaction Past Psychological History: No Psychological Hx Reported Smoking Status: Never smoker Past Alcohol Use History: Rare Past Drug Use History: None Reported - Past Family History Brother(s) Family Medical History: Cancer Additional Family Medical History / Comment(s): Lung cancer. Father Family Medical History: Cancer Additional Family Medical History / Comment(s): Melanoma. Medications and Allergies Home Medications Medication Instructions Recorded Confirmed Type Calcium Citrate/Vitamin D3 1 tab PO DAILY 03/15/23 02/12/24 History [Citracal + D Maximum Caplet] Ferrous Sulfate [Iron] 325 mg PO MOWEFR 05/07/23 02/12/24 History Niacin 500 mg PO DAILY 07/24/23 02/12/24 History Metoprolol Tartrate [Lopressor] 12.5 mg PO BID 90 Days #90 tab 07/27/23 02/12/24 Rx Folic Acid 800 mcg PO DAILY 11/06/23 02/12/24 History Multivitamins, Thera [Multivitamin 1 tab PO DAILY 11/06/23 02/12/24 History (formulary)] Sennosides/Docusate Sodium [Senna 1 each PO DAILY #20 capsule 11/07/23 02/12/24 Rx Plus 8.6-50 mg Softgel] Aspirin [Adult Low Dose Aspirin EC] 81 mg PO DAILY 02/12/24 02/12/24 History cefaDROXiL [Duricef] 500 mg PO BID 02/12/24 02/12/24 History Allergies Allergy/AdvReac Type Severity Reaction Status Date / Time ciprofloxacin [From Cipro] Allergy Rash/Hives Verified 02/15/24 10:44 poison jarek extract Allergy Rash/Hives Verified 02/15/24 10:44 Sulfa (Sulfonamide Allergy Unknown Verified 02/15/24 10:44 Antibiotics) Physical Exam Vitals: Vital Signs Temp Pulse Resp BP Pulse Ox 02/16/24 01:46 98.9 F 53 L 18 100/51 100 02/15/24 19:49 98.9 F 53 L 18 102/44 100 02/15/24 17:37 97.5 F L 54 L 18 150/67 100 02/15/24 16:55 67 18 123/61 99 02/15/24 16:40 53 L 18 139/60 100 02/15/24 16:25 67 18 137/63 100 02/15/24 16:10 97.3 F L 72 12 144/65 100 02/15/24 10:53 97.8 F 68 20 195/74 98 Intake and Output 02/15/24 02/15/24 02/16/24 14:59 22:59 06:59 Intake Total 1852 200 Output Total 360 160 Balance 1852 -160 -160 Intake: IV 1852 200 Output: Drainage 260 160 Medial Back 260 160 Estimated Blood Loss 100 Other: # Voids 1 1 Weight 67.4 kg 67.4 kg Results CBC & Chem 7: 02/16/24 06:54 02/16/24 06:54 Labs: Abnormal Lab Results - Last 24 Hours (Table) 02/15/24 02/15/24 02/15/24 Range/Units 11:00 17:10 20:27 Chloride 111 H (98-107) mmol/L Carbon Dioxide 20 L (22-30) mmol/L BUN 34 H (7-17) mg/dL Creatinine 1.09 H (0.52-1.04) mg/dL Glucose 104 H (74-99) mg/dL POC Glucose (mg/dL) 166 H 162 H (70-110) mg/dL Assessment and Plan Plan: 1patient with lumbar surgical wound dehiscence in this patient hard to have a history of [id number] decompression and fusion and subsequently did have a wound revision and dural repair now presenting with a nonhealing wound in this patient who is s/p debridement of the skin and soft tissue down to the bone and deep culture we will need to cover for both gram-positive as well as gram-negative pathogen while waiting for the culture to finalize 2-patient with multiple antibiotic ALLERGIES that would limit the number of antibiotic safe to use 3-blood cultures obtained check inflammatory markers 4-vancomycin pharmacy to dose target trough of 15 while watching kidney function and Vanco trough closely and cefepime has been added for gram-negative coverage We will follow on clinical condition and cultures to further adjust medication if needed Thank you for this consultation we will follow the patient along with you Dictation was produced using [employer] dictation software. please excuse any grammatical, word or spelling errors. Time with Patient: Greater than 30
[2024-02-17] MEDS: ONDANSETRON 4 MG/2 ML VIAL IVP PRN (05:10)
[2024-02-17] MEDS: CEFEPIME 2 GM in SODIUM CHLORIDE 0.9% 100 ML IVPB SCH (05:59)
[2024-02-17 06:28] LABS: Glucose,Whole Blood 127 mg/dL (70-110)
[2024-02-17 09:44] LABS: HCT 29.7 % (37.2-46.3); HGB 9.3 g/dL (12.0-15.0); MCH 30.5 pg (27.0-32.0); MCHC 31.3 g/dL (32.0-37.0); MCV 97.4 FL (80.0-97.0); Mean Platelet Volume 9.7 FL (9.5-12.2); NRBC Per 100 WBC 0 X 10*3/uL (0.00-0.01); Platelet Count 209 X 10*3/uL (140-440); RBC 3.05 X 10*6/uL (4.10-5.20); WBC 9.74 X 10*3/uL (4.50-10.00)
[2024-02-17 10:35] LABS: ALT 10 U/L (8-44); AST 18 U/L (13-35); Albumin 3.3 g/dL (3.8-4.9); Albumin/Globulin Ratio 1.43 Ratio (1.60-3.17); Alkaline Phosphatase 68 U/L (41-126); BUN/Creat Ratio 24.77 Ratio (12.00-20.00); Blood Urea Nitrogen 32.2 mg/dL (9.0-27.0); Calcium 9.5 mg/dL (8.7-10.3); Carbon Dioxide 20.9 mmol/L (21.6-31.8); Chloride 108 mmol/L (96-109); Globulin 2.3 g/dL (1.6-3.3); Glucose 126 mg/dL (70-110); Potassium 5.6 mmol/L (3.5-5.5); Sodium 138 mmol/L (135-145); Total Bilirubin 0.3 mg/dL (0.3-1.2); Total Protein 5.6 g/dL (6.2-8.2)
[2024-02-17] MEDS ORDERED: VANCOMYCIN IV PER PHARMACY 1 EACH MISC MISCELLANE PRN (10:49)
--- NOTE | 2024-02-17 11:24 | P.PN ---
Subjective Progress Note Date: 02/17/24 Subjective: Patient seen and examined at bedside. No acute events overnight. Did have some nausea this morning. Patient ambulating well. Having bowel movements. Pertinent positives and negatives as discussed above, a complete review of systems was performed and all other systems are negative. Vitals Signs Reviewed. General: Nontoxic, no distress, appears at stated age Derm: Warm, dry, back dressing clean, dry, intact, drain in place Head: Atraumatic, normocephalic, symmetric Eyes: EOMI, no lid lag, anicteric sclera Mouth: No lip lesion, mucus membranes moist Cardiovascular: S1S2 reg, no murmur Lungs: CTA bilateral, no rhonchi, no rales, no accessory muscle use Abdominal: Soft, nontender to palpation, no guarding, no appreciable organomegaly Ext: No gross muscle atrophy, no edema, no contractures Neuro: CN II-XI grossly intact, no focal neuro deficits Psych: Alert, oriented, appropriate affect Data Reviewed Today: Pertinent Labs: WBC 9.74, hemoglobin 9.3, potassium 5.6, creatinine 1.3, glucose 126, A1c 5.6 Imaging: No new imaging Assessment and Plan: Status post incision and drainage of lumbar spine with irrigation and debridement of soft tissue, muscle, and bone. Postsurgical infection of lumbar spine -Continue cefepime 2 g IV every 12 hours, scheduled vancomycin changed to pharmacy to dose, continue to monitor renal function for toxicity -On scheduled Tylenol, oral [place] as needed, IV Dilaudid as needed, monitor for sedation, Flexeril as needed, IV Toradol discontinued -Bisacodyl as needed, Fleet as needed enema, MiraLAX daily, senna daily Worsening Creatinine on CKD stage III Hyperkalemia -Lokelma 10 g given now -Patient having bowel movements -Calcium gluconate 1 g given IV -Monitor renal function closely given patient is on vancomycin -Renal ultrasound pending -Scheduled Toradol discontinued Postoperative bradycardia, asymptomatic Hypertension -Continue metoprolol 12.5 mg twice daily, hold for heart rate less than 60. -Patient placed on telemetry monitoring Acute postoperative blood loss anemia -Hemoglobin stable Diabetes mellitus with hyperglycemia -Sliding scale insulin, monitor for hypoglycemia Thank you for allowing us to participate in the care of this pleasant patient. Do not hesitate to contact us with questions. Someone can be reached from the [facility] hospitalist group all hours of the day at [phone] or via perfect serve. Objective - Vital Signs Vital signs: Vital Signs Temp 98.3 F 02/17/24 06:58 Pulse 58 L 02/17/24 06:58 Resp 17 02/17/24 06:58 BP 112/62 02/17/24 06:58 Pulse Ox 99 02/17/24 06:58 FiO2 Intake & Output 02/16/24 02/17/24 02/17/24 18:59 06:59 18:59 Output Total 180 100 Balance -180 -100 Weight 67.4 kg Output: Drainage 180 100 Medial Back 180 100 Other: Voiding Method Toilet Toilet # Voids 1 3 1 # Bowel Movements 3 - Labs CBC & Chem 7: 02/17/24 06:27 02/17/24 06:27 Labs: Abnormal Lab Results - Last 24 Hours (Table) 02/17/24 02/17/24 02/17/24 Range/Units 06:25 06:27 06:27 RBC 3.05 L (4.10-5.20) X 10*6/uL Hgb 9.3 L (12.0-15.0) g/dL Hct 29.7 L (37.2-46.3) % MCV 97.4 H (80.0-97.0) FL MCHC 31.3 L (32.0-37.0) g/dL Potassium 5.6 H (3.5-5.5) mmol/L Carbon Dioxide 20.9 L (21.6-31.8) mmol/L BUN 32.2 H (9.0-27.0) mg/dL Est GFR (CKD-EPI) 43 L (>=60) BUN/Creatinine Ratio 24.77 H (12.00-20.00) Ratio Glucose 126 H (70-110) mg/dL POC Glucose (mg/dL) 127 H (70-110) mg/dL Total Protein 5.6 L (6.2-8.2) g/dL Albumin 3.3 L (3.8-4.9) g/dL Albumin/Globulin Ratio 1.43 L (1.60-3.17) Ratio Microbiology - Last 24 Hours (Table) 02/15/24 14:45 Gram Stain - Preliminary Other - Other 02/15/24 14:55 Gram Stain - Preliminary Other - Other 02/15/24 14:50 Gram Stain - Preliminary Other - Other 02/15/24 18:34 Blood Culture - Preliminary Blood
[2024-02-17 12:51] LABS: Glucose,Whole Blood 104 mg/dL (70-110)
[2024-02-17] MEDS: CALCIUM GLUCONATE IN NACL 1 GM in SALINE 1 100ML.BAG IVPB ONE (12:54)
[2024-02-17] MEDS: SODIUM ZIRCONIUM CYCLOSILICATE 10 GM PACKET PO ONE (12:55)
--- NOTE | 2024-02-17 13:05 | P.PN ---
Subjective Progress Note Date: 02/17/24 Principal diagnosis: Status post I&D lumbar spine, hardware removal Patient was evaluated today at bedside, her and daughter were both present. Patient continues to do well postoperatively. She did have a little bit of nausea this morning which has resolved. She continues to urinate with no issues. She has been ambulating with no significant issues. The Hemovac drain continues to put out a decent amount of bloody serosanguineous fluid. Postoperative dressing was in good position and condition. Currently denies headaches, lightheadedness, chest pain or shortness of breath Objective - Vital Signs Vital signs: Vital Signs Temp 98.3 F 02/17/24 06:58 Pulse 58 L 02/17/24 06:58 Resp 17 02/17/24 06:58 BP 112/62 02/17/24 06:58 Pulse Ox 99 02/17/24 06:58 FiO2 Intake & Output 02/16/24 02/17/24 02/17/24 18:59 06:59 18:59 Output Total 180 120 Balance -180 -120 Weight 67.4 kg Output: Drainage 180 120 Medial Back 180 120 Other: Voiding Method Toilet Toilet # Voids 1 3 1 # Bowel Movements 3 - Exam Gen: AOx3, NAD VSS stable at this time Integument: Postoperative dressing was removed today at bedside, nylon sutures are all in good position and condition. No active drainage is present. Hemovac drain is in good position and condition. Palpation: Mild tenderness with palpation to the paraspinal and midline lumbar region near the surgical incision ROM: Full range of motion in all major muscle groups of the bilateral upper and lower extremities, no focal deficits appreciated Sensory Exam: Senory exam to light touch is intact C5-T1 Senosry exam to light touch is intact L2-S1 Motor: 4/5 strength appreciated in the bilateral lower extremities with hip flexion, knee extension, knee flexion, plantarflexion, dorsiflexion, EHL, FHL Reflexes: 2/4 in all UE and LE Negative Roman's bilaterally Negative clonus bilaterally Special Test: Negative straight leg raise bilaterally - Labs CBC & Chem 7: 02/17/24 06:27 02/17/24 06:27 Labs: Abnormal Lab Results - Last 24 Hours (Table) 06/15/24 06/15/24 06/15/24 Range/Units 06:25 06:27 06:27 RBC 3.05 L (4.10-5.20) X 10*6/uL Hgb 9.3 L (12.0-15.0) g/dL Hct 29.7 L (37.2-46.3) % MCV 97.4 H (80.0-97.0) FL MCHC 31.3 L (32.0-37.0) g/dL Potassium 5.6 H (3.5-5.5) mmol/L Carbon Dioxide 20.9 L (21.6-31.8) mmol/L BUN 32.2 H (9.0-27.0) mg/dL Est GFR (CKD-EPI) 43 L (>=60) BUN/Creatinine Ratio 24.77 H (12.00-20.00) Ratio Glucose 126 H (70-110) mg/dL POC Glucose (mg/dL) 127 H (70-110) mg/dL Total Protein 5.6 L (6.2-8.2) g/dL Albumin 3.3 L (3.8-4.9) g/dL Albumin/Globulin Ratio 1.43 L (1.60-3.17) Ratio Microbiology - Last 24 Hours (Table) 02/15/24 14:45 Gram Stain - Preliminary Other - Other 02/15/24 14:55 Gram Stain - Preliminary Other - Other 02/15/24 14:50 Gram Stain - Preliminary Other - Other 02/15/24 18:34 Blood Culture - Preliminary Blood Assessment and Plan Assessment: Lumbar spine wound dehiscence Postoperative day #2 status post incision and drainage with irrigation and debridement lumbar spine wound, hardware removal x 2, antibiotic bead placement, complex lumbar wound closure Other medical comorbidities Plan: Pain control, continue with current medications DVT prophylaxis, compression stockings and AICHA hose Wound care, new surgical dressing was applied. Leave Hemovac drain in place at this time, will continue to monitor. We discussed having the patient trying to lay on either side to take pressure off the lumbar wound Weight-bear as tolerated, recommend use of walker when up and ambulating Continue PT/OT Encourage incentive spirometer Await culture and sensitivity results Other medical specialty recommendations appreciated Continue to follow during hospital stay Time with Patient: Less than 30
--- NOTE | 2024-02-17 13:06 | US ---
EXAMINATION TYPE: US kidneys/renal and bladder DATE OF EXAM: 02/17/2024 COMPARISON: CT CLINICAL INDICATION: Female, 73 years old with history of edwige; EDWIGE EXAM MEASUREMENTS: Right Kidney: 11.0 x 5.1 x 4.3 cm Left Kidney: 10.4 x 4.9 x 4.6 cm Right Kidney: No hydronephrosis, lower pole shows an echogenic lesion= 1.1 x 0.9 x 1.3 cm with questi on small amount of fluid surrounding lesion Left Kidney: No hydronephrosis or masses seen Bladder: Pt has cath in place IMPRESSION: * No evidence of hydronephrosis bilaterally. * Right kidney lower pole small echogenic lesion, nonspecific. This could be further characterized w ith CT on a nonemergent outpatient basis.
--- NOTE | 2024-02-17 15:17 | FL ---
5 fluoroscopic spot views were obtained intraoperatively during lumbar spine procedure and saved to P ACS. Total exposure time recorded 1.7 seconds. Please refer to operative note for full details. IMPRESSION: Documentation of fluoroscopy.
--- NOTE | 2024-02-17 15:57 | P.PN ---
Subjective Progress Note Date: 02/17/24 Principal diagnosis: Reason for follow-up is lumbar surgical wound dehiscence and concern for infection Patient is a 73-year-old female with a past medical history signi ficant diabetes mellitus hypertension hyperlipidemia osteoarthritis in this patient who did have a [id number] decompression and fusion subsequently did have a wound revision and dural repair and I&D 9 weeks postop now electively admitted to the hospital with a wound dehiscence s/p I&D of the lumbar spine and culture which are pending. On today's evaluation that is 02/17/2024,the patient denies any fever or any chills, patient is breathing comfortably on room air, the patient denies chest pain shortness of breath and no significant cough, patient denies abdominal pain, no nausea vomiting or diarrhea. Denies any worsening pain to the lower back area. Patient white count is 9.74, creatinine is 1.3 cultures currently pending Objective - Vital Signs Vital signs: Vital Signs Temp 98.3 F 02/17/24 06:58 Pulse 58 L 02/17/24 06:58 Resp 17 02/17/24 06:58 BP 112/62 02/17/24 06:58 Pulse Ox 99 02/17/24 06:58 FiO2 Intake & Output 02/16/24 02/17/24 02/17/24 18:59 06:59 18:59 Output Total 180 100 Balance -180 -100 Weight 67.4 kg Output: Drainage 180 100 Medial Back 180 100 Other: Voiding Method Toilet Toilet # Voids 1 3 1 # Bowel Movements 3 - Exam GENERAL DESCRIPTION: An elderly female lying in bed in no distress RESPIRATORY SYSTEM: Unlabored breathing , decreased breath sounds at bases HEART: S1 S2 regular rate and rhythm , ABDOMEN: Soft , no tenderness EXTREMITIES: No edema feet Lumbar spine incision covered with surgical dressing - Labs CBC & Chem 7: 02/17/24 06:27 02/17/24 06:27 Labs: Abnormal Lab Results - Last 24 Hours (Table) 02/17/24 02/17/24 02/17/24 Range/Units 06:25 06:27 06:27 RBC 3.05 L (4.10-5.20) X 10*6/uL Hgb 9.3 L (12.0-15.0) g/dL Hct 29.7 L (37.2-46.3) % MCV 97.4 H (80.0-97.0) FL MCHC 31.3 L (32.0-37.0) g/dL Potassium 5.6 H (3.5-5.5) mmol/L Carbon Dioxide 20.9 L (21.6-31.8) mmol/L BUN 32.2 H (9.0-27.0) mg/dL Est GFR (CKD-EPI) 43 L (>=60) BUN/Creatinine Ratio 24.77 H (12.00-20.00) Ratio Glucose 126 H (70-110) mg/dL POC Glucose (mg/dL) 127 H (70-110) mg/dL Total Protein 5.6 L (6.2-8.2) g/dL Albumin 3.3 L (3.8-4.9) g/dL Albumin/Globulin Ratio 1.43 L (1.60-3.17) Ratio Microbiology - Last 24 Hours (Table) 02/15/24 14:45 Gram Stain - Preliminary Other - Other 02/15/24 14:55 Gram Stain - Preliminary Other - Other 02/15/24 14:50 Gram Stain - Preliminary Other - Other 02/15/24 18:34 Blood Culture - Preliminary Blood Assessment and Plan (1) Dehiscence of surgical wound Current Visit: Yes Status: Acute Code(s): T81.31XA - DISRUPTION OF EXTERNAL OPERATION (SURGICAL) WOUND, NEC, INIT SNOMED Code(s): 882186496 (2) Wound infection after surgery Current Visit: Yes Status: Acute Code(s): T81.49XA - INFECTION FOLLOWING A PROCEDURE, OTHER SURGICAL SITE, INIT SNOMED Code(s): 26464517 Plan: 1patient with lumbar surgical wound dehiscence in this patient hard to have a history of [id number] decompression and fusion and subsequently did have a wound revision and dural repair now presenting with a nonhealing wound in this patient who is s/p debridement of the skin and soft tissue down to the bone and deep culture we will need to cover for both gram-positive as well as gram-negative pathogen while waiting for the culture to finalize 2-patient with multiple antibiotic ALLERGIES that would limit the number of antibiotic safe to use 3-blood cultures as well as local culture currently pending 4-patient to continue with vancomycin pharmacy to dose target trough of 15 along with cefepime while waiting for the culture to finalize Dictation was produced using [employer] dictation software. please excuse any grammatical, word or spelling errors. Time with Patient: Less than 30
[2024-02-17 16:39] LABS: Glucose,Whole Blood 125 mg/dL (70-110)
[2024-02-17] MEDS: HYDROcodone/APAP 5-325MG 1 EACH TAB PO PRN (20:00)
[2024-02-17 20:52] LABS: Glucose,Whole Blood 124 mg/dL (70-110)
[2024-02-18 05:34] LABS: Glucose,Whole Blood 161 mg/dL (70-110)
[2024-02-18 06:38] LABS: African American GFR (CKD) 59 (>60 ml/min/1.73 sqM); Anion Gap 6 mmol/L; Blood Urea Nitrogen 29 mg/dL (7-17); Calcium 8.9 mg/dL (8.4-10.2); Carbon Dioxide 20 mmol/L (22-30); Chloride 110 mmol/L (98-107); Glucose 130 mg/dL (74-99); Non-African American GFR(CKD) 51 (>60 ml/min/1.73 sqM); Potassium 4.3 mmol/L (3.5-5.1); Sodium 136 mmol/L (137-145)
[2024-02-18] MEDS: CEFEPIME 2 GM in SODIUM CHLORIDE 0.9% 100 ML IVPB SCH ×2 (09:23→16:04)
[2024-02-18 10:58] LABS: Basophils # (A) 0.04 X 10*3/uL (0.00-0.10); Basophils % (A) 0.4 %; Eosinophils # (A) 0.69 X 10*3/uL (0.04-0.35); Eosinophils % (A) 7.5 %; HCT 30.4 % (37.2-46.3); HGB 9.6 g/dL (12.0-15.0); Lymphocytes # (A) 1.23 X 10*3/uL (0.90-5.00); Lymphocytes % (A) 13.3 %; MCH 30.5 pg (27.0-32.0); MCHC 31.6 g/dL (32.0-37.0); MCV 96.5 FL (80.0-97.0); Mean Platelet Volume 9.9 FL (9.5-12.2); Monocytes % (A) 5.4 %; NRBC Per 100 WBC 0 X 10*3/uL (0.00-0.01); Neutrophils # (A) 6.73 X 10*3/uL (1.80-7.70); Platelet Count 216 X 10*3/uL (140-440); RBC 3.15 X 10*6/uL (4.10-5.20); RDW 13.9 % (11.5-14.5); WBC 9.23 X 10*3/uL (4.50-10.00)
--- NOTE | 2024-02-18 11:13 | P.PN ---
Subjective Progress Note Date: 02/18/24 Subjective: Patient seen and examined at bedside. No acute events overnight. Last IV access yesterday, had multiple times yesterday, now has an IV access. Pertinent positives and negatives as discussed above, a complete review of systems was performed and all other systems are negative. Vitals Signs Reviewed. General: Nontoxic, no distress, appears at stated age Derm: Warm, dry, back dressing clean, dry, intact, drain in place Head: Atraumatic, normocephalic, symmetric Eyes: EOMI, no lid lag, anicteric sclera Mouth: No lip lesion, mucus membranes moist Cardiovascular: S1S2 reg, no murmur Lungs: CTA bilateral, no rhonchi, no rales, no accessory muscle use Abdominal: Soft, nontender to palpation, no guarding, no appreciable organomegaly Ext: No gross muscle atrophy, no edema, no contractures Neuro: CN II-XI grossly intact, no focal neuro deficits Psych: Alert, oriented, appropriate affect Data Reviewed Today: Pertinent Labs: WBC 9.23, hemoglobin 9.6, creatinine 1.09, potassium 4.3, blood sugars range between 1 24-1 61 Imaging: No new imaging Assessment and Plan: Status post incision and drainage of lumbar spine with irrigation and debridement of soft tissue, muscle, and bone. Postsurgical infection of lumbar spine -Continue cefepime 2 g IV every 12 hours, scheduled vancomycin changed to pharmacy to dose, continue to monitor renal function for toxicity -On scheduled Tylenol, oral [place] as needed, IV Dilaudid as needed, monitor for sedation, Flexeril as needed, IV Toradol discontinued -Bisacodyl as needed, Fleet as needed enema, MiraLAX daily, senna daily -Cultures pending, in the past she has grown Citrobacter, Klebsiella and MRSA. Worsening Creatinine on CKD stage III, now stable Hyperkalemia, resolved -Continue to monitor renal function closely Postoperative bradycardia, asymptomatic Hypertension -Continue metoprolol 12.5 mg twice daily, hold for heart rate less than 60. -Patient placed on telemetry monitoring Acute postoperative blood loss anemia -Hemoglobin stable Diabetes mellitus with hyperglycemia -Sliding scale insulin, monitor for hypoglycemia Thank you for allowing us to participate in the care of this pleasant patient. Do not hesitate to contact us with questions. Someone can be reached from the [facility] hospitalist group all hours of the day at [phone] or via perfect serve. Objective - Vital Signs Vital signs: Vital Signs Temp 98.7 F 02/18/24 07:30 Pulse 63 02/18/24 07:30 Resp 17 02/18/24 07:30 BP 121/67 02/18/24 07:30 Pulse Ox 100 02/18/24 07:30 FiO2 Intake & Output 02/17/24 02/18/24 02/18/24 18:59 06:59 18:59 Output Total 120 80 Balance -120 -80 Output: Drainage 120 80 Medial Back 120 80 Other: Voiding Method Toilet Toilet # Voids 3 4 1 - Labs CBC & Chem 7: 02/18/24 05:28 02/18/24 05:28 Labs: Abnormal Lab Results - Last 24 Hours (Table) 02/17/24 02/17/24 02/18/24 Range/Units 16:37 20:45 05:28 RBC (4.10-5.20) X 10*6/uL Hgb (12.0-15.0) g/dL Hct (37.2-46.3) % MCHC (32.0-37.0) g/dL Eosinophils # (0.04-0.35) X 10*3/uL Sodium 136 L (137-145) mmol/L Chloride 110 H (98-107) mmol/L Carbon Dioxide 20 L (22-30) mmol/L BUN 29 H (7-17) mg/dL Creatinine 1.09 H (0.52-1.04) mg/dL Glucose 130 H (74-99) mg/dL POC Glucose (mg/dL) 125 H 124 H (70-110) mg/dL 02/18/24 02/18/24 Range/Units 05:28 05:33 RBC 3.15 L (4.10-5.20) X 10*6/uL Hgb 9.6 L (12.0-15.0) g/dL Hct 30.4 L (37.2-46.3) % MCHC 31.6 L (32.0-37.0) g/dL Eosinophils # 0.69 H (0.04-0.35) X 10*3/uL Sodium (137-145) mmol/L Chloride (98-107) mmol/L Carbon Dioxide (22-30) mmol/L BUN (7-17) mg/dL Creatinine (0.52-1.04) mg/dL Glucose (74-99) mg/dL POC Glucose (mg/dL) 161 H (70-110) mg/dL Microbiology - Last 24 Hours (Table) 02/15/24 14:50 Gram Stain - Final Other - Other Wound Culture - Final 02/15/24 18:34 Blood Culture - Preliminary Blood 02/15/24 14:55 Gram Stain - Preliminary Other - Other Wound Culture - Preliminary 02/15/24 14:45 Gram Stain - Preliminary Other - Other Tissue Culture - Preliminary
--- NOTE | 2024-02-18 11:45 | P.PN ---
Subjective Progress Note Date: 02/18/24 Principal diagnosis: Status post I&D lumbar spine, hardware removal Patient was evaluated today at bedside, her present at bedside. Patient continues to do well postoperatively. She continues to urinate with no issues. She has been ambulating with no significant issues. Hemovac drain seems to be slowing. Postoperative dressing was in good position and condition. Currently denies headaches, lightheadedness, chest pain or shortness of breath Objective - Vital Signs Vital signs: Vital Signs Temp 98.7 F 02/18/24 07:30 Pulse 63 02/18/24 07:30 Resp 17 02/18/24 07:30 BP 121/67 02/18/24 07:30 Pulse Ox 100 02/18/24 07:30 FiO2 Intake & Output 02/17/24 02/18/24 02/18/24 18:59 06:59 18:59 Output Total 120 80 Balance -120 -80 Output: Drainage 120 80 Medial Back 120 80 Other: Voiding Method Toilet Toilet # Voids 3 4 1 - Exam Gen: AOx3, NAD VSS stable at this time Integument: Dressing is in good position and condition, no active drainage. Hemovac drain is in good position and condition. Palpation: Mild tenderness with palpation to the paraspinal and midline lumbar region near the surgical incision ROM: Full range of motion in all major muscle groups of the bilateral upper and lower extremities, no focal deficits appreciated Sensory Exam: Senory exam to light touch is intact C5-T1 Senosry exam to light touch is intact L2-S1 Motor: 4/5 strength appreciated in the bilateral lower extremities with hip flexion, knee extension, knee flexion, plantarflexion, dorsiflexion, EHL, FHL Reflexes: 2/4 in all UE and LE Negative Roman's bilaterally Negative clonus bilaterally Special Test: Negative straight leg raise bilaterally - Labs CBC & Chem 7: 02/18/24 05:28 02/18/24 05:28 Labs: Abnormal Lab Results - Last 24 Hours (Table) 02/17/24 02/17/24 02/18/24 Range/Units 16:37 20:45 05:28 RBC (4.10-5.20) X 10*6/uL Hgb (12.0-15.0) g/dL Hct (37.2-46.3) % MCHC (32.0-37.0) g/dL Eosinophils # (0.04-0.35) X 10*3/uL Sodium 136 L (137-145) mmol/L Chloride 110 H (98-107) mmol/L Carbon Dioxide 20 L (22-30) mmol/L BUN 29 H (7-17) mg/dL Creatinine 1.09 H (0.52-1.04) mg/dL Glucose 130 H (74-99) mg/dL POC Glucose (mg/dL) 125 H 124 H (70-110) mg/dL 02/18/24 02/18/24 Range/Units 05:28 05:33 RBC 3.15 L (4.10-5.20) X 10*6/uL Hgb 9.6 L (12.0-15.0) g/dL Hct 30.4 L (37.2-46.3) % MCHC 31.6 L (32.0-37.0) g/dL Eosinophils # 0.69 H (0.04-0.35) X 10*3/uL Sodium (137-145) mmol/L Chloride (98-107) mmol/L Carbon Dioxide (22-30) mmol/L BUN (7-17) mg/dL Creatinine (0.52-1.04) mg/dL Glucose (74-99) mg/dL POC Glucose (mg/dL) 161 H (70-110) mg/dL Microbiology - Last 24 Hours (Table) 02/15/24 14:50 Gram Stain - Final Other - Other Wound Culture - Final 02/15/24 18:34 Blood Culture - Preliminary Blood 02/15/24 14:55 Gram Stain - Preliminary Other - Other Wound Culture - Preliminary 02/15/24 14:45 Gram Stain - Preliminary Other - Other Tissue Culture - Preliminary Assessment and Plan Assessment: Lumbar spine wound dehiscence Postoperative day #3 status post incision and drainage with irrigation and debridement lumbar spine wound, hardware removal x 2, antibiotic bead placement, complex lumbar wound closure Other medical comorbidities Plan: Pain control, continue with current medications DVT prophylaxis, compression stockings and AICHA hose Wound care, leave current dressing in place. Plan for dressing removal and drain removal on 02/19/2024 Weight-bear as tolerated, recommend use of walker when up and ambulating Continue PT/OT Encourage incentive spirometer Await culture and sensitivity results Other medical specialty recommendations appreciated Discharge planning: Pending culture results and other medical specialty recommendations hopeful discharge to home on 02/19/2024 Time with Patient: Less than 30
[2024-02-18 11:47] LABS: Glucose,Whole Blood 95 mg/dL (70-110)
--- NOTE | 2024-02-18 14:37 | P.PN ---
Subjective Progress Note Date: 02/18/24 Principal diagnosis: Reason for follow-up is lumbar surgical wound dehiscence and concern for infection Patient is a 73-year-old female with a past medical history signi ficant diabetes mellitus hypertension hyperlipidemia osteoarthritis in this patient who did have a [id number] decompression and fusion subsequently did have a wound revision and dural repair and I&D 9 weeks postop now electively admitted to the hospital with a wound dehiscence s/p I&D of the lumbar spine and culture which are pending. On today's evaluation that is 02/18/2024,the patient remains to be afebrile, patient is on room air not requiring supplemental oxygen and denies any shortness of breath no chest pain or cough.Patient denies having any nausea or vomiting, no abdominal pain and no diarrhea has been reported, denies any worsening back pain. Patient white count is 9.23, creatinine 1.09 culture now growing Citrobacter Objective - Vital Signs Vital signs: Vital Signs Temp 98.0 F 02/18/24 13:52 Pulse 63 02/18/24 13:52 Resp 17 02/18/24 13:52 BP 146/79 02/18/24 13:52 Pulse Ox 99 02/18/24 13:52 FiO2 Intake & Output 02/17/24 02/18/24 02/18/24 18:59 06:59 18:59 Output Total 120 80 Balance -120 -80 Output: Drainage 120 80 Medial Back 120 80 Other: Voiding Method Toilet Toilet # Voids 3 4 1 - Exam GENERAL DESCRIPTION: An elderly female lying in bed in no distress RESPIRATORY SYSTEM: Unlabored breathing , decreased breath sounds at bases HEART: S1 S2 regular rate and rhythm , ABDOMEN: Soft , no tenderness EXTREMITIES: No edema feet Lumbar spine incision covered with surgical dressing - Labs CBC & Chem 7: 02/18/24 05:28 02/18/24 05:28 Labs: Abnormal Lab Results - Last 24 Hours (Table) 02/17/24 02/17/24 02/18/24 Range/Units 16:37 20:45 05:28 RBC (4.10-5.20) X 10*6/uL Hgb (12.0-15.0) g/dL Hct (37.2-46.3) % MCHC (32.0-37.0) g/dL Eosinophils # (0.04-0.35) X 10*3/uL Sodium 136 L (137-145) mmol/L Chloride 110 H (98-107) mmol/L Carbon Dioxide 20 L (22-30) mmol/L BUN 29 H (7-17) mg/dL Creatinine 1.09 H (0.52-1.04) mg/dL Glucose 130 H (74-99) mg/dL POC Glucose (mg/dL) 125 H 124 H (70-110) mg/dL 02/18/24 02/18/24 Range/Units 05:28 05:33 RBC 3.15 L (4.10-5.20) X 10*6/uL Hgb 9.6 L (12.0-15.0) g/dL Hct 30.4 L (37.2-46.3) % MCHC 31.6 L (32.0-37.0) g/dL Eosinophils # 0.69 H (0.04-0.35) X 10*3/uL Sodium (137-145) mmol/L Chloride (98-107) mmol/L Carbon Dioxide (22-30) mmol/L BUN (7-17) mg/dL Creatinine (0.52-1.04) mg/dL Glucose (74-99) mg/dL POC Glucose (mg/dL) 161 H (70-110) mg/dL Microbiology - Last 24 Hours (Table) 02/15/24 14:55 Gram Stain - Preliminary Other - Other Wound Culture - Preliminary Citrobacter koseri Proteus mirabilis 02/15/24 14:45 Gram Stain - Preliminary Other - Other Tissue Culture - Preliminary Citrobacter koseri 02/15/24 14:50 Gram Stain - Final Other - Other Wound Culture - Final 02/15/24 18:34 Blood Culture - Preliminary Blood Assessment and Plan (1) Dehiscence of surgical wound Current Visit: Yes Status: Acute Code(s): T81.31XA - DISRUPTION OF EXTERNAL OPERATION (SURGICAL) WOUND, NEC, INIT SNOMED Code(s): 374160570 (2) Wound infection after surgery Current Visit: Yes Status: Acute Code(s): T81.49XA - INFECTION FOLLOWING A PROCEDURE, OTHER SURGICAL SITE, INIT SNOMED Code(s): 60846071 Plan: 1patient with lumbar surgical wound dehiscence in this patient hard to have a history of [id number] decompression and fusion and subsequently did have a wound revision and dural repair now presenting with a nonhealing wound in this patient who is s/p debridement of the skin and soft tissue down to the bone and deep culture we will need to cover for both gram-positive as well as gram-negative pathogen while waiting for the culture to finalize 2-patient with multiple antibiotic ALLERGIES that would limit the number of antibiotic safe to use 3-blood cultures so far negative local culture growing Proteus and Citrobacter with sensitivities pending 4-patient to continue with cefepime however will discontinue vancomycin as no gram-positive or MRSA PICC line ordered for tomorrow for outpatient IV antibiotic therapy Dictation was produced using [employer] dictation software. please excuse any grammatical, word or spelling errors. Time with Patient: Less than 30
[2024-02-18 16:31] LABS: Glucose,Whole Blood 152 mg/dL (70-110)
[2024-02-18] MEDS ORDERED: VANCOMYCIN 1,250 MG in SODIUM CHLORIDE 0.9% 250 ML IVPB SCH (20:00)
[2024-02-18 20:07] LABS: Glucose,Whole Blood 125 mg/dL (70-110)
[2024-02-19 05:47] LABS: Glucose,Whole Blood 116 mg/dL (70-110)
[2024-02-19 05:53] LABS: African American GFR (CKD) 60 (>60 ml/min/1.73 sqM); Non-African American GFR(CKD) 52 (>60 ml/min/1.73 sqM)
[2024-02-19 05:55] LABS: African American GFR (CKD) 62 (>60 ml/min/1.73 sqM); Anion Gap 6 mmol/L; Blood Urea Nitrogen 27 mg/dL (7-17); Calcium 9.5 mg/dL (8.4-10.2); Carbon Dioxide 22 mmol/L (22-30); Chloride 109 mmol/L (98-107); Glucose 110 mg/dL (74-99); Non-African American GFR(CKD) 54 (>60 ml/min/1.73 sqM); Potassium 4.3 mmol/L (3.5-5.1); Sodium 137 mmol/L (137-145)
--- NOTE | 2024-02-19 11:09 | P.PN ---
Subjective Progress Note Date: 02/19/24 Subjective: Patient seen and examined at bedside. No acute events overnight. Pertinent positives and negatives as discussed above, a complete review of systems was performed and all other systems are negative. Vitals Signs Reviewed. General: Nontoxic, no distress, appears at stated age Derm: Warm, dry, back dressing clean, dry, intact, drain in place Head: Atraumatic, normocephalic, symmetric Eyes: EOMI, no lid lag, anicteric sclera Mouth: No lip lesion, mucus membranes moist Cardiovascular: S1S2 reg, no murmur Lungs: CTA bilateral, no rhonchi, no rales, no accessory muscle use Abdominal: Soft, nontender to palpation, no guarding, no appreciable organomegaly Ext: No gross muscle atrophy, no edema, no contractures Neuro: CN II-XI grossly intact, no focal neuro deficits Psych: Alert, oriented, appropriate affect Data Reviewed Today: Pertinent Labs: Bicarb 22, BUN 27, creatinine 1.04, glucose range between 110 and 152 Imaging: No new imaging Assessment and Plan: Postsurgical infection of lumbar spine Status post I&D -Continue cefepime 2 g IV every 12 hours, cultures growing Citrobacter and Proteus -Vancomycin was discontinued -ID following -On scheduled Tylenol, oral [place] as needed, IV Dilaudid as needed, monitor for sedation, Flexeril as needed -Bisacodyl as needed, Fleet as needed enema, MiraLAX daily, senna daily CKD stage III, hemoglobin stable Hyperkalemia, resolved -Continue to monitor renal function closely Postoperative bradycardia, asymptomatic Hypertension -Continue metoprolol 12.5 mg twice daily, hold for heart rate less than 60. -Continue telemetry monitoring Acute postoperative blood loss anemia -Hemoglobin stable Diabetes mellitus with hyperglycemia -Sliding scale insulin, monitor for hypoglycemia Patient is medically optimized once she has PICC line and IV antibiotics arranged. Thank you for allowing us to participate in the care of this pleasant patient. Do not hesitate to contact us with questions. Someone can be reached from the [facility] hospitalist group all hours of the day at [phone] or via perfect serve. Objective - Vital Signs Vital signs: Vital Signs Temp 98.3 F 02/19/24 07:35 Pulse 71 02/19/24 07:35 Resp 18 02/19/24 07:35 BP 150/68 02/19/24 07:35 Pulse Ox 97 02/19/24 07:35 FiO2 Intake & Output 02/18/24 02/19/24 02/19/24 18:59 06:59 18:59 Output Total 70 Balance -70 Output: Drainage 70 Medial Back 70 Other: Voiding Method Toilet # Voids 1 1 1 - Labs CBC & Chem 7: 02/18/24 05:28 02/19/24 04:50 Labs: Abnormal Lab Results - Last 24 Hours (Table) 02/18/24 02/18/24 02/19/24 Range/Units 16:30 20:03 04:50 Chloride (98-107) mmol/L BUN (7-17) mg/dL Creatinine 1.06 H (0.52-1.04) mg/dL Glucose (74-99) mg/dL POC Glucose (mg/dL) 152 H 125 H (70-110) mg/dL 02/19/24 02/19/24 Range/Units 04:50 05:45 Chloride 109 H (98-107) mmol/L BUN 27 H (7-17) mg/dL Creatinine (0.52-1.04) mg/dL Glucose 110 H (74-99) mg/dL POC Glucose (mg/dL) 116 H (70-110) mg/dL Microbiology - Last 24 Hours (Table) 02/15/24 14:45 Gram Stain - Final Other - Other Tissue Culture - Final Citrobacter koseri 02/15/24 14:55 Gram Stain - Final Other - Other Wound Culture - Final Citrobacter koseri Proteus mirabilis 02/15/24 18:34 Blood Culture - Preliminary Blood 02/15/24 14:55 Anaerobic Culture - Preliminary Other - Other 02/15/24 14:45 Anaerobic Culture - Preliminary Other - Other 02/15/24 14:50 Anaerobic Culture - Preliminary Other - Other 02/15/24 14:50 Gram Stain - Final Other - Other Wound Culture - Final
[2024-02-19 12:06] LABS: Glucose,Whole Blood 100 mg/dL (70-110)
--- NOTE | 2024-02-19 12:39 | P.PN ---
Subjective Progress Note Date: 02/19/24 Principal diagnosis: Status post I&D lumbar spine, hardware removal Patient was evaluated today at bedside, her present at bedside. Patient remains very stable. The Hemovac drain continues to put out less fluid. Patient's cultures are growing 2 different gram-negative bacteria, PICC line has been ordered by infectious disease. Currently denies headaches, lighthead edness, chest pain or shortness of breath Objective - Vital Signs Vital signs: Vital Signs Temp 98.3 F 02/19/24 07:35 Pulse 71 02/19/24 07:35 Resp 18 02/19/24 07:35 BP 150/68 02/19/24 07:35 Pulse Ox 97 02/19/24 07:35 FiO2 Intake & Output 02/18/24 02/19/24 02/19/24 18:59 06:59 18:59 Output Total 70 Balance -70 Output: Drainage 70 Medial Back 70 Other: Voiding Method Toilet # Voids 1 1 1 - Exam Gen: AOx3, NAD VSS stable at this time Integument: Dressing is in good position and condition, no active drainage. Hemovac drain is in good position and condition. Palpation: Mild tenderness with palpation to the paraspinal and midline lumbar region near the surgical incision ROM: Full range of motion in all major muscle groups of the bilateral upper and lower extremities, no focal deficits appreciated Sensory Exam: Senory exam to light touch is intact C5-T1 Senosry exam to light touch is intact L2-S1 Motor: 4/5 strength appreciated in the bilateral lower extremities with hip flexion, knee extension, knee flexion, plantarflexion, dorsiflexion, EHL, FHL Reflexes: 2/4 in all UE and LE Negative Roman's bilaterally Negative clonus bilaterally Special Test: Negative straight leg raise bilaterally - Labs CBC & Chem 7: 02/18/24 05:28 02/19/24 04:50 Labs: Abnormal Lab Results - Last 24 Hours (Table) 02/18/24 02/18/24 02/19/24 Range/Units 16:30 20:03 04:50 Chloride (98-107) mmol/L BUN (7-17) mg/dL Creatinine 1.06 H (0.52-1.04) mg/dL Glucose (74-99) mg/dL POC Glucose (mg/dL) 152 H 125 H (70-110) mg/dL 02/19/24 02/19/24 Range/Units 04:50 05:45 Chloride 109 H (98-107) mmol/L BUN 27 H (7-17) mg/dL Creatinine (0.52-1.04) mg/dL Glucose 110 H (74-99) mg/dL POC Glucose (mg/dL) 116 H (70-110) mg/dL Microbiology - Last 24 Hours (Table) 02/15/24 14:45 Gram Stain - Final Other - Other Tissue Culture - Final Citrobacter koseri 02/15/24 14:55 Gram Stain - Final Other - Other Wound Culture - Final Citrobacter koseri Proteus mirabilis 02/15/24 18:34 Blood Culture - Preliminary Blood 02/15/24 14:55 Anaerobic Culture - Preliminary Other - Other 02/15/24 14:45 Anaerobic Culture - Preliminary Other - Other 02/15/24 14:50 Anaerobic Culture - Preliminary Other - Other 02/15/24 14:50 Gram Stain - Final Other - Other Wound Culture - Final Assessment and Plan Assessment: Lumbar spine wound dehiscence Postoperative day #4 status post incision and drainage with irrigation and debridement lumbar spine wound, hardware removal x 2, antibiotic bead placement, complex lumbar wound closure Other medical comorbidities Plan: Pain control, continue with current medications DVT prophylaxis, compression stockings and AICHA hose Wound care, planning for dressing change along with Hemovac removal after PICC line is placed Weight-bear as tolerated, recommend use of walker when up and ambulating Continue PT/OT Encourage incentive spirometer Other medical specialty recommendations appreciated Discharge planning: If PICC line is able to be placed today along with IV antibiotics set up for discharge, plan for discharge to home on 02/19/2024 Time with Patient: Less than 30
--- NOTE | 2024-02-19 15:10 | XR ---
EXAMINATION TYPE: XR chest 1V DATE OF EXAM: 02/19/2024 COMPARISON: 07/24/2023 INDICATION: PICC line placement TECHNIQUE: Single frontal view of the chest is obtained. FINDINGS: The heart size is normal. The pulmonary vasculature is normal. The lungs are clear. PICC line entering on the left appears to have the tip in the region of the distal superior vena cava . IMPRESSION: 1. No acute pulmonary process. 2. PICC line tip distal superior vena cava
[2024-02-19 18:01] LABS: Glucose,Whole Blood 171 mg/dL (70-110)
--- NOTE | 2024-02-19 18:16 | P.PN ---
Subjective Progress Note Date: 02/19/24 Principal diagnosis: Reason for follow-up is lumbar surgical wound dehiscence and concern for infection Patient is a 73-year-old female with a past medical history signi ficant diabetes mellitus hypertension hyperlipidemia osteoarthritis in this patient who did have a [id number] decompression and fusion subsequently did have a wound revision and dural repair and I&D 9 weeks postop now electively admitted to the hospital with a wound dehiscence s/p I&D of the lumbar spine and culture which are pending. On today's evaluation that is 02/19/2024, the patient continues to be afebrile, the patient is on room air and breathing comfortably, the Pt denies having any chest pain or cough, the patient denies having any abdominal pain no vomiting or any diarrhea lower back pain is currently controlled. Patient did have a creatinine 1.04 culture with Proteus and Citrobacter Objective - Vital Signs Vital signs: Vital Signs Temp 98.3 F 02/19/24 07:35 Pulse 71 02/19/24 07:35 Resp 18 02/19/24 07:35 BP 150/68 02/19/24 07:35 Pulse Ox 97 02/19/24 07:35 FiO2 Intake & Output 02/18/24 02/19/24 02/19/24 18:59 06:59 18:59 Output Total 70 Balance -70 Output: Drainage 70 Medial Back 70 Other: Voiding Method Toilet # Voids 1 1 1 - Exam GENERAL DESCRIPTION: An elderly female lying in bed in no distress RESPIRATORY SYSTEM: Unlabored breathing , decreased breath sounds at bases HEART: S1 S2 regular rate and rhythm , ABDOMEN: Soft , no tenderness EXTREMITIES: No edema feet Lumbar spine incision covered with surgical dressing - Labs CBC & Chem 7: 02/18/24 05:28 02/19/24 04:50 Labs: Abnormal Lab Results - Last 24 Hours (Table) 02/18/24 02/18/24 02/19/24 Range/Units 16:30 20:03 04:50 Chloride (98-107) mmol/L BUN (7-17) mg/dL Creatinine 1.06 H (0.52-1.04) mg/dL Glucose (74-99) mg/dL POC Glucose (mg/dL) 152 H 125 H (70-110) mg/dL 02/19/24 02/19/24 Range/Units 04:50 05:45 Chloride 109 H (98-107) mmol/L BUN 27 H (7-17) mg/dL Creatinine (0.52-1.04) mg/dL Glucose 110 H (74-99) mg/dL POC Glucose (mg/dL) 116 H (70-110) mg/dL Microbiology - Last 24 Hours (Table) 02/15/24 14:45 Gram Stain - Final Other - Other Tissue Culture - Final Citrobacter koseri 02/15/24 14:55 Gram Stain - Final Other - Other Wound Culture - Final Citrobacter koseri Proteus mirabilis 02/15/24 18:34 Blood Culture - Preliminary Blood 02/15/24 14:55 Anaerobic Culture - Preliminary Other - Other 02/15/24 14:45 Anaerobic Culture - Preliminary Other - Other 02/15/24 14:50 Anaerobic Culture - Preliminary Other - Other 02/15/24 14:50 Gram Stain - Final Other - Other Wound Culture - Final Assessment and Plan (1) Dehiscence of surgical wound Current Visit: Yes Status: Acute Code(s): T81.31XA - DISRUPTION OF EXTERNAL OPERATION (SURGICAL) WOUND, NEC, INIT SNOMED Code(s): 491851763 (2) Wound infection after surgery Current Visit: Yes Status: Acute Code(s): T81.49XA - INFECTION FOLLOWING A PROCEDURE, OTHER SURGICAL SITE, INIT SNOMED Code(s): 16190945 Plan: 1patient with lumbar surgical wound dehiscence in this patient hard to have a history of [id number] decompression and fusion and subsequently did have a wound revision and dural repair now presenting with a nonhealing wound in this patient who is s/p debridement of the skin and soft tissue down to the bone and deep culture we will need to cover for both gram-positive as well as gram-negative pathogen while waiting for the culture to finalize 2-patient with multiple antibiotic ALLERGIES that would limit the number of antibiotic safe to use 3-blood cultures so far negative local culture growing Proteus and Citrobacter with sensitivities pending 4-patient was advised cefepime 2 g every 8 hours PICC line was ordered however the patient refused because of the cost of the drug antibiotic has been switched over to Rocephin 2 g daily director of casework services to check the cost for her patient has been educated about her condition and importance of IV antibiotic for her infection Dictation was produced using [employer] dictation software. please excuse any grammatical, word or spelling errors. Time with Patient: Less than 30
[2024-02-19 21:09] LABS: Glucose,Whole Blood 95 mg/dL (70-110)
[2024-02-20 06:00] LABS: Glucose,Whole Blood 116 mg/dL (70-110)
--- NOTE | 2024-02-20 07:17 | P.PN ---
Subjective Progress Note Date: 02/20/24 Pt s/e this AM. She is doing well resting in bed. She has been up and about with walker and 4 prong cane. She has had no issues. PICC placed yesterday. ABX per ID ordered. She is ready to go home today she states. Denies any f/c/sob/cp at this time. Denies any other sx. Dressing has been CDI since placed Monday. Objective - Vital Signs Vital signs: Vital Signs Temp 98.1 F 02/20/24 01:30 Pulse 62 02/20/24 01:30 Resp 15 02/20/24 01:30 BP 145/73 02/20/24 01:30 Pulse Ox 98 02/20/24 01:30 FiO2 Intake & Output 02/19/24 02/20/24 02/20/24 18:59 06:59 18:59 Output Total 10 Balance -10 Output: Drainage 10 Medial Back 10 Other: # Voids 3 3 # Bowel Movements 0 - Exam Physical Exam: -Patient is alert and oriented 3 appears well-nourished well-hydrated is in no acute distress. They do not appear septic. -There is No TTP of the lumbar region [-Incision is CDI, no EEE, no drainage] -Upper extremities show [5] out of 5 strength in all major muscle groups. -Lower extremities with 4+ out of 5 strength in all major muscle groups No focal deficits. -There is [FROM] that is [painless] of the b/l UE and LE in all major joints. Neg SLR. -They are intact to light touch sensation in C5 to T1 and L2 to S1 nerve distribution. -DTR [2]/4 all upper and lower extremities -Patient has palpable distal pulses all 4 ext -Compartments are soft and compressible. -Patient shows a negative Carlos's [-Neg Hoffmans b/l] [-Neg Clonus b/l] [-Neg babinski b/l] Cranial nerves II through XII are grossly intact. - Labs CBC & Chem 7: 02/18/24 05:28 02/19/24 04:50 Labs: Abnormal Lab Results - Last 24 Hours (Table) 02/19/24 02/20/24 Range/Units 17:59 05:56 POC Glucose (mg/dL) 171 H 116 H (70-110) mg/dL Microbiology - Last 24 Hours (Table) 02/15/24 14:45 Gram Stain - Final Other - Other Tissue Culture - Final Citrobacter koseri 02/15/24 14:55 Gram Stain - Final Other - Other Wound Culture - Final Citrobacter koseri Proteus mirabilis 02/15/24 18:34 Blood Culture - Preliminary Blood Assessment and Plan Assessment: Current Active Problems Dehiscence of surgical wound (Acute) History of lumbar fusion (Acute) Wound infection after surgery (Acute) Diabetes 1.5, managed as type 2 (Chronic) Hyperlipidemia associated with type 2 diabetes mellitus (Chronic) Hypertension (Chronic) Weakness (Chronic) Plan: -ABX per ID, likely 6 weeks PICC then Oral for 2-4 weeks. Follow labs -FU PCP 3-5 days -Pain control for home -Ambulate daily, no BLTPP greater than 15 lbs. -Ice for pain control -GI/DVT ppx cont -Stable for DC home per [facility] today once home care and Abx set up. F/U 10 days in office.
[2024-02-20 10:13] VITALS: TEMP 97.8
--- NOTE | 2024-02-20 10:13 | P.DS ---
Providers Date of admission: 02/15/24 10:05 Expected date of discharge: 02/20/24 Attending physician: Lei Duong DO Consults: 02/15/24 16:16 Consult Physician Routine Consulting Provider: Suzie Santos Consult Reason/Comments: medical management Do you want consulting provider notified?: Yes 02/15/24 16:21 Consult Physician Routine Consulting Provider: Franklin Williamson Consult Reason/Comments: Possible deep infection lumbar spine, non healing wound Do you want consulting provider notified?: Yes Primary care physician: Fred Stephens Hospital Course: Date of admission: 02/14/2024 Date of discharge: 02/20/2024 Admission diagnosis: Dehiscence of surgical wound (Acute) History of lumbar fusion Discharge diagnosis: Same Attending physician: Dr. Duong Surgical procedures: lumbar wound incision and drainage and irrigation debridement Brief history: Patient is a 73-year-old female with a history of dehiscence of surgical wound and history of lumbar fusion. At this point patient has failed conservative treatment measures and has opted to proceed with a elective lumbar wound incision and drainage and irrigation debridement. Hospital course: Details of patient's surgery can be found in operative report. Patient tolerated the procedure well and was subsequently transported to orthopedic floor. Patient's orthopeidc and medical care was provided daily. Patient had daily laboratory tests performed for evaluation of overall blood counts. Patient had daily physical therapy to include strengthening range of motion as well as education with walker ambulation. Patient was noted to have a relatively uneventful postoperative course. Patient reported satisfactory pain control with oral pain medications by postoperative day 5. Patient showed [employer] progress with physical therapy. Patient moved steadily through the program and had no difficulty meeting the goals by postoperative day 5. Given patient's otherwise satisfactory course and having met physical therapy goals, plan is to discharge patient home with home care on postoperative day 5. Discharge condition/disposition: Patient will be discharged home with home care in stable condition. Discharge medications: Instructions are given on resumption of patient's normal daily medications per primary care recommendation, in addition patient will be prescribed tylenol. Spine Discharge and Recovery Instructions Date of Surgery: 02/15/2024 Diagnosis: Dehiscence of surgical wound (Acute) History of lumbar fusion Procedure: lumbar wound incision and drainage and irrigation debridement Medications: See medication list All medication refills should be obtained through your primary care doctor or your clinic spine surgeon. Please discuss prescription refills at your follow up appointment. Do not call the hospital for medication refills. Dressing: Leave your dressing in place for a total of 5 days post operatively. Then you may remove your dressing and leave open to air. Keep the area clean and if not able to keep area clean, then cover with sterile gauze and tape. Showering: You may shower 3 days after your procedure allowing soap and water to run over incision. Do not scrub. Do not soak. Blot dry. Follow up: Please confirm a follow up appointment with your surgeon 3 weeks post operatively. Please make an appointment to follow up with your PCP in 1-2 weeks after surgery for evaluation `3 phase, 3-week plan POST OP WEEKS 1-3 1. Lifting/carrying/pushing/pulling limited to less than 5 pounds. 2. Do not sit for longer than 15 minutes at one time. Get up and walk around. Prolonged sitting is NOT advised. If you lay down, see if you can tolerate laying down on you front (belly side) 3. Walk for periods of 15 minutes = 1 mile but no longer; do it multiple times times each day. 4. Ice your low back after activity. POST OP WEEKS 3-6 1. Lifting limited to less than 20 pounds. 2. Do not sit for longer than 30 minutes at a time. Frequently change positions. Use a sit-to stand workstation or take frequent breaks from sitting if you have returned to work. 3. Walk for 30 minutes each day. If possible, do these three or more times a day POST OP WEEKS 6+ At your 6-week appointment we will give you a physical therapy referral to focus on a core stabilization and strengthening program. You should also work on leg & buttock strengthening, hamstring & quadriceps stretching, and continue a low impact aerobic activity program such as swimming, walking, or riding a stationary bicycle. During the initial 6 weeks after your surgery, you are at the highest risk of re-injuring your spine. You should generally avoid BLTs (bending, lifting and twisting combination motions) and follow the above guidelines to reduce the chance of reinjury. You can anticipate post op appointments in our office at approximately 3 weeks and 6 weeks after your surgery. INCISION CARE: If your incision is not draining you do NOT need to cover it with a dressing. Keep your incision clean, dry and intact. In most cases, we apply skin glue, trinh or sutures to the incision at the time of surgery. This will be like a crust or have the appearance of a scab and will fall off in time on its own. The stitches or trinh need to be removed at 3 weeks post op appointment. You may begin to shower 3 days after surgery (this allows the glue to peterson well). However, please avoid scrubbing the incision site or peeling off any of the skin glue. This will ensure optimal healing of your incision. Also, during this time avoid soaking the incision area in water - this includes swimming pools, hot tubs or baths. No ointments, lotions or oils on the incision until your surgeon allows. Leave trinh, sutures or glue in place. Neurological dysfunction that comes on suddenly can also be a sign of a stroke. Below some common symptoms of a stroke are listed: B - balance difficulty such as sudden onset walking or leaning to one side - NEW E - eye problem such as sudden double vision or trouble seeing on one side - NEW F - Facial weakness or numbness on one side - NEW A - Arm or leg weakness or numbness on one side - NEW S - Slurred speech or difficulty with word finding - NEW T - Time is BRAIN! Call 911 as soon as you recognize these symptoms Diet: Consume a regular diet rich in vegetables and lean protein such as chicken or fish. You should consume in a ratio of approximately 20% fats|40% carbohydrates|40%protein. Vegetables, sweet potatoes, brown rice or quinoa are examples of good carbohydrates. Chips, white bread, cookies and sweets/sugar ar e examples of bad carbohydrates. Limit your bad carbs, go wild with good carbs. "Life's Simple 7" Guidelines as per [place] [employer] These will help you reclaim your life after surgery and optical brightener maker helper in your recovery, keeping in mind your restrictions. (1) Get Active. Physical activity can help people lose weight, control high blood pressure and cholesterol, feel emotionally better, and sleep better. (2) Control Cholesterol. Avoid a diet high in saturated fat, trans fat, & cholesterol. Limit whole milk & cream, ice cream, butter, egg yolks, processed meats (like sausage and hot dogs), and fatty meats. Choose healthy foods that are low in saturated fat, trans fat and cholesterol which include: Fruits and vegetables, fiber rich grain products (like whole g rain pasta and brown rice), lean meat such as chicken, fish, nuts, seeds, and legumes. (3) Eat Better. Eat small portions. Shop at the grocery with a list and do not stray from it. Tips for a healthy diet include: Limit sodium intake to less than 1500mg daily, avoid prepackaged, processed, and fast foods, choose a diet rich in fruits, vegetables, and whole grain, high fiber foods, and limit saturated & cholesterol in your diet. (4) Manage Blood Pressure. If you have high blood pressure, you should have a cuff at home so that you can check your blood pressure regularly. Be sure you have a good cuff. An arm one is generally better than a wrist one. Bring the cuff to a doctor's appointment to validate that the measurements that your cuff are taking are accurate. Take your blood pressure twice daily when you are sitting down and relaxing. Record the numbers in a log and bring this log with you to your doctors' appointments. (5) Lose Weight if your BMI is above 25. A healthy BMI is between 19-25. To calculate Your BMI, you may use a Standard BMI Calculator on the NIH BMI website: <www.nhlbi.nih.gov/guidelines/obesity/BMI/bmicalc.htm>. Weigh oneself daily. If you are overweight, set a goal to lose weight. A pound a week loss if needed is a good target. (6) Reduce Blood Sugar. Limit foods and liquids with "added sugars." (Added sugars include sucrose, fructose, glucose, maltose, dextrose, high fructose corn syrup, corn syrup, concentrated fruit juice and honey). (7) Stop Smoking. If you smoke, quitting smoking is one of the best things that you can do for your health. Smoking increases your risk of heart attack, stroke, and peripheral vascular disease, which is a build-up of plaque in your arteries. Please discard all the cigarettes and lighters in your house. Have a plan for what you will do when you have the urge to smoke. Direct and second- hand smoke shortens your life as well as the lives of your family, friends and others around you. For your health and the health of those around you, please consider quitting! Proper Bending Body Mechanics: Maintain a wide stance with one foot slightly in front of the other. Keep your back straight. Bend utilizing the strength in your hips and knees. Do not bend at the waist. Maintain the lifted object at your waist-level close to your body. Avoid lifting weight that causes immediately pain or pain anywhere in the body afterwards. Smoking/Nicotine If there was ever one thing that you could do to increase your overall health, decrease your risk of cardiovascular problems by about 39% the second you make the choice, it is to STOP SMOKING. Your body's most instant gratification is the second you stop smoking. We have all heard the studies, read the articles but it is true, smoking is extremely bad for your overall health, and moreover it is detrimental to your bone health. Nicotine, IN ANY FORM, kills bone cells, prevents your body from healing fractures, and significantly prolongs healing after surgery. In spine surgery specifically, it increases your risk of not healing your bones to create a fusio n and increases your risk of having a revision surgery due to this up to 60%. I know it is hard. I know it feels impossible. But there are ways. Take control of your life. We are here to help you through it. And when you are ready, ask us and we can direct you to help if you desire. Use the START Plan to Quit Smoking (please visit the Helpguide.org website listed below for more information): S = Set a quit date. Choose a date within the next 2 weeks, so you have enough time to prepare without losing your motivation to quit. If you mainly smoke at work, quit on the weekend, so you have a few days to adjust to the change. T = Tell family, friends, and co-workers that you plan to quit. Let your friends and family in on your plan to quit smoking and tell them you need their support and encouragement to stop. Look for a quit anai who wants to stop smoking as well. You can help each other get through the rough times. A = Anticipate and plan for the challenges you'll face while quitting. Most people who begin smoking again do so within the first 3 months. You can help yourself make it through by preparing ahead for common challenges, such as nicotine withdrawal and cigarette cravings. R = Remove cigarettes and other tobacco products from your home, car, and work. Throw away all your cigarettes (no emergency pack!), lighters, ashtrays, and matches. Wash your clothes and freshen up anything that smells like smoke. Shampoo your car, clean your drapes and carpet, and steam your furniture. T = Talk to your doctor about getting help to quit. Your doctor can prescribe medication to help with withdrawal and suggest other alternatives. If you can't see a doctor, you can get many products over the counter at your local pharmacy or grocery store, including the nicotine patch, nicotine lozenges, and nicotine gum. Resources for Quitting Smoking: <https://www.[place].gov/documents/[facility]/Quit_Tobacco_Resources_for_patients_313 480_7.pdf> Supplementation: Take recommended dosages of Vitamin D and Calcium to help fortify your bones and help them to heal. See your health maintenance packet for dosages and recommended levels. DVT/VTE prophylaxis: You will be given compression stockings from the hospital. Wear these daily for the first two weeks after surgery. You may take them off at night. You may be prescribed a medication to help thin your blood. Take this as directed. If you are not prescribed this medication, early and frequent ambulation has been shown to be the best prophylaxis to deep vein thrombosis and sequelae related to this event. Assessment: Dehiscence of surgical wound (Acute) History of lumbar fusion Procedures: lumbar wound incision and drainage and irrigation debridement Patient Condition at Discharge: Good Plan - Discharge Summary Discharge Rx Participant: No New Discharge Prescriptions: New Acetaminophen Tab [Tylenol] 650 mg PO Q6H #28 tab Continue Calcium Citrate/Vitamin D3 [Citracal + D Maximum Caplet] 1 tab PO DAILY Niacin 500 mg PO DAILY Folic Acid 800 mcg PO DAILY Ferrous Sulfate [Iron] 325 mg PO MOWEFR Metoprolol Tartrate [Lopressor] 12.5 mg PO BID 90 Days #90 tab Multivitamins, Thera [Multivitamin (formulary)] 1 tab PO DAILY Sennosides/Docusate Sodium [Senna Plus 8.6-50 mg Softgel] 1 each PO DAILY #20 capsule Discontinued Aspirin [Adult Low Dose Aspirin EC] 81 mg PO DAILY No Action cefaDROXiL [Duricef] 500 mg PO BID Discharge Medication List Calcium Citrate/Vitamin D3 [Citracal + D Maximum Caplet] 1 tab PO DAILY 03/15/23 [History] Ferrous Sulfate [Iron] 325 mg PO MOWEFR 05/07/23 [History] Niacin 500 mg PO DAILY 07/24/23 [History] Metoprolol Tartrate [Lopressor] 12.5 mg PO BID 90 Days #90 tab 07/27/23 [Rx] Folic Acid 800 mcg PO DAILY 11/06/23 [History] Multivitamins, Thera [Multivitamin (formulary)] 1 tab PO DAILY 11/06/23 [History] Sennosides/Docusate Sodium [Senna Plus 8.6-50 mg Softgel] 1 each PO DAILY #20 capsule 11/07/23 [Rx] cefaDROXiL [Duricef] 500 mg PO BID 02/12/24 [History] Acetaminophen Tab [Tylenol] 650 mg PO Q6H #28 tab 02/20/24 [Rx] Follow up Appointment(s)/Referral(s): [facility], [NON-STAFF] - As Needed Lei Duong DO [Doctor of Osteopathic Medicine] - 10 Days Activity/Diet/Wound Care/Special Instructions: Spine Discharge and Recovery Instructions Medications: See medication list All medication refills should be obtained through your primary care doctor or your clinic spine surgeon. Please discuss prescription refills at your follow up appointment. Do not call the hospital for medication refills. Dressing: Leave your dressing in place for a total of 5 days post operatively. Then you may remove your dressing and leave open to air. Keep the area clean and if not able to keep area clean, then cover with sterile gauze and tape. Showering: You may shower 3 days after your procedure allowing soap and water to run over incision. Do not scrub. Do not soak. Blot dry. Follow up: Please confirm a follow up appointment with your surgeon 3 weeks post operatively. Please make an appointment to follow up with your PCP in 1-2 weeks after surgery for evaluation `3 phase, 3-week plan POST OP WEEKS 1-3 1. Lifting/carrying/pushing/pulling limited to less than 5 pounds. 2. Do not sit for longer than 15 minutes at one time. Get up and walk around. Prolonged sitting is NOT advised. If you lay down, see if you can tolerate laying down on you front (belly side) 3. Walk for periods of 15 minutes = 1 mile but no longer; do it multiple times times each day. 4. Ice your low back after activity. POST OP WEEKS 3-6 1. Lifting limited to less than 20 pounds. 2. Do not sit for longer than 30 minutes at a time. Frequently change positions. Use a sit-to stand workstation or take frequent breaks from sitting if you have returned to work. 3. Walk for 30 minutes each day. If possible, do these three or more times a day POST OP WEEKS 6+ At your 6-week appointment we will give you a physical therapy referral to focus on a core stabilization and strengthening program. You should also work on leg & buttock strengthening, hamstring & quadriceps stretching, and continue a low impact aerobic activity program such as swimming, walking, or riding a stationary bicycle. During the initial 6 weeks after your surgery, you are at the highest risk of re-injuring your spine. You should generally avoid BLTs (bending, lifting and twisting combination motions) and follow the above guidelines to reduce the chance of reinjury. You can anticipate post op appointments in our office at approximately 3 weeks and 6 weeks after your surgery. INCISION CARE: If your incision is not draining you do NOT need to cover it with a dressing. Keep your incision clean, dry and intact. In most cases, we apply skin glue, trinh or sutures to the incision at the time of surgery. This will be like a crust or have the appearance of a scab and will fall off in time on its own. The stitches or trinh need to be removed at 3 weeks post op appointment. You may begin to shower 3 days after surgery (this allows the glue to peterson well). However, please avoid scrubbing the incision site or peeling off any of the skin glue. This will ensure optimal healing of your incision. Also, during this time avoid soaking the incision area in water - this includes swimming pools, hot tubs or baths. No ointments, lotions or oils on the incision until your surgeon allows. Leave trinh, sutures or glue in place. Neurological dysfunction that comes on suddenly can also be a sign of a stroke. Below some common symptoms of a stroke are listed: B - balance difficulty such as sudden onset walking or leaning to one side - N EW E - eye problem such as sudden double vision or trouble seeing on one side - NEW F - Facial weakness or numbness on one side - NEW A - Arm or leg weakness or numbness on one side - NEW S - Slurred speech or difficulty with word finding - NEW T - Time is BRAIN! Call 911 as soon as you recognize these symptoms Diet: Consume a regular diet rich in vegetables and lean protein such as chicken or fish. You should consume in a ratio of approximately 20% fats|40% carbohydrates|40%protein. Vegetables, sweet potatoes, brown rice or quinoa are examples of good carbohydrates. Chips, white bread, cookies and sweets/sugar are examples of bad carbohydrates. Limit your bad carbs, go wild with good carbs. "Life's Simple 7" Guidelines as per [place] [employer] These will help you reclaim your life after surgery and optical brightener maker helper in your recovery, keeping in mind your restrictions. (1) Get Active. Physical activity can help people lose weight, control high blood pressure and cholesterol, feel emotionally better, and sleep better. (2) Control Cholesterol. Avoid a diet high in saturated fat, trans fat, & cholesterol. Limit whole milk & cream, ice cream, butter, egg yolks, processed meats (like sausage and hot dogs), and fatty meats. Choose healthy foods that are low in saturated fat, trans fat and cholesterol which include: Fruits and vegetables, fiber rich grain products (like whole grain pasta and brown rice), lean meat such as chicken, fish, nuts, seeds, and legumes. (3) Eat Better. Eat small portions. Shop at the grocery with a list and do not stray from it. Tips for a healthy diet include: Limit sodium intake to less than 1500mg daily, avoid prepackaged, processed, and fast foods, choose a diet rich in fruits, vegetables, and whole grain, high fiber foods, and limit saturated & cholesterol in your diet. (4) Manage Blood Pressure. If you have high blood pressure, you should have a cuff at home so that you can check your blood pressure regularly. Be sure you have a good cuff. An arm one is generally better than a wrist one. Bring the cuff to a doctor's appointment to validate that the measurements that your cuff are taking are accurate. Take your blood pressure twice daily when you are sitting down and relaxing. Record the numbers in a log and bring this log with you to your doctors' appointments. (5) Lose Weight if your BMI is above 25. A healthy BMI is between 19-25. To calculate Your BMI, you may use a Standard BMI Calculator on the NIH BMI website: <www.nhlbi.nih.gov/guidelines/obesity/BMI/bmicalc.htm>. Weigh oneself daily. If you are overweight, set a goal to lose weight. A pound a week loss if needed is a good target. (6) Reduce Blood Sugar. Limit foods and liquids with "added sugars." (Added sugars include sucrose, fructose, glucose, maltose, dextrose, high fructose corn syrup, corn syrup, concentrated fruit juice and honey). (7) Stop Smoking. If you smoke, quitting smoking is one of the best things that you can do for your health. Smoking increases your risk of heart attack, stroke, and peripheral vascular disease, which is a build-up of plaque in your arteries. Please discard all the cigarettes and lighters in your house. Have a plan for what you will do when you have the urge to smoke. Direct and second- hand smoke shortens your life as well as the lives of your family, friends and others around you. For your health and the health of those around you, please consider quitting! Proper Bending Body Mechanics: Maintain a wide stance with one foot slightly in front of the other. Keep your back straight. Bend utilizing the strength in your hips and knees. Do not bend at the waist. Maintain the lifted object at your waist-level close to your body. Avoid lifting weight that causes immediately pain or pain anywhere in the body afterwards. Smoking/Nicotine If there was ever one thing that you could do to increase your overall health, decrease your risk of cardiovascular problems by about 39% the second you make the choice, it is to STOP SMOKING. Your body's most instant gratification is the second you stop smoking. We have all heard the studies, read the articles but it is true, smoking is extremely bad for your overall health, and moreover it is detrimental to your bone health. Nicotine, IN ANY FORM, kills bone cells, prevents your body from healing fractures, and significantly prolongs healing after surgery. In spine surgery specifically, it increases your risk of not healing your bones to create a fusion and increases your risk of having a revision surgery due to this up to 60%. I know it is hard. I know it feels impossible. But there are ways. Take control of your life. We are here to help you through it. And when you are ready, ask us and we can direct you to help if you desire. Use the START Plan to Quit Smoking (please visit the Helpguide.org website listed below for more information): S = Set a quit date. Choose a date within the next 2 weeks, so you have enough time to prepare without losing your motivation to quit. If you mainly smoke at work, quit on the weekend, so you have a few days to adjust to the change. T = Tell family, friends, and co-workers that you plan to quit. Let your friends and family in on your plan to quit smoking and tell them you need their support and encouragement to stop. Look for a quit anai who wants to stop smoking as well. You can help each other get through the rough times. A = Anticipate and plan for the challenges you'll face while quitting. Most people who begin smoking again do so within the first 3 months. You can help yourself make it through by preparing ahead for common challenges, such as nicotine withdrawal and cigarette cravings. R = Remove cigarettes and other tobacco products from your home, car, and work. Throw away all your cigarettes (no emergency pack!), lighters, ashtrays, and matches. Wash your clothes and freshen up anything that smells like smoke. Shampoo your car, clean your drapes and carpet, and steam your furniture. T = Talk to your doctor about getting help to quit. Your doctor can prescribe medication to help with withdrawal and suggest other alternatives. If you can't see a doctor, you can get many products over the counter at your local pharmacy or grocery store, including the nicotine patch, nicotine lozenges, and nicotine gum. Resources for Quitting Smoking: <https://www.[facility].gov/documents/[facility]/Quit_Tobacco_Resources_for_patients_313480_7.pdf> Supplementation: Take recommended dosages of Vitamin D and Calcium to help fortify your bones and help them to heal. See your health maintenance packet for dosages and recommended levels. DVT/VTE prophylaxis: You will be given compression stockings from the hospital. Wear these daily for the first two weeks after surgery. You may take them off at night. You may be prescribed a medication to help thin your blood. Take this as directed. If you are not prescribed this medication, early and frequent ambulation has been shown to be the best prophylaxis to deep vein thrombosis and sequelae related to this event. Discharge Disposition: HOME WITH HOME HEALTH SERVICES
--- NOTE | 2024-02-20 11:09 | P.PN ---
Subjective Progress Note Date: 02/20/24 Subjective: Patient seen and examined at bedside. No acute events overnight. Pertinent positives and negatives as discussed above, a complete review of systems was performed and all other systems are negative. Vitals Signs Reviewed. General: Nontoxic, no distress, appears at stated age Derm: Warm, dry, back dressing clean, dry, intact, drain in place Head: Atraumatic, normocephalic, symmetric Eyes: EOMI, no lid lag, anicteric sclera Mouth: No lip lesion, mucus membranes moist Cardiovascular: S1S2 reg, no murmur Lungs: CTA bilateral, no rhonchi, no rales, no accessory muscle use Abdominal: Soft, nontender to palpation, no guarding, no appreciable organomegaly Ext: No gross muscle atrophy, no edema, no contractures Neuro: CN II-XI grossly intact, no focal neuro deficits Psych: Alert, oriented, appropriate affect Data Reviewed Today: Pertinent Labs: Sugars range between 95-1 7 1 Imaging: No new imaging Assessment and Plan: Postsurgical infection of lumbar spine Status post I&D -Continue cefepime 2 g IV every 12 hours, cultures growing Citrobacter and Proteus -Vancomycin was discontinued -ID following -On scheduled Tylenol, oral [place] as needed, IV Dilaudid as needed, monitor for sedation, Flexeril as needed -Bisacodyl as needed, Fleet as needed enema, MiraLAX daily, senna daily CKD stage III, hemoglobin stable Hyperkalemia, resolved -Continue to monitor renal function closely Postoperative bradycardia, asymptomatic Hypertension -Continue metoprolol 12.5 mg twice daily, hold for heart rate less than 60. -Continue telemetry monitoring Acute postoperative blood loss anemia -Hemoglobin stable Diabetes mellitus with hyperglycemia -Sliding scale insulin, monitor for hypoglycemia Patient is medically optimized for discharge. Thank you for allowing us to participate in the care of this pleasant patient. Do not hesitate to contact us with questions. Someone can be reached from the [facility] hospitalist group all hours of the day at [phone] or via perfect serve. Objective - Vital Signs Vital signs: Vital Signs Temp 97.8 F 02/20/24 07:36 Pulse 62 02/20/24 08:00 Resp 15 02/20/24 08:00 BP 133/76 02/20/24 07:36 Pulse Ox 98 02/20/24 09:46 FiO2 Intake & Output 02/19/24 02/20/24 02/20/24 18:59 06:59 18:59 Output Total 10 Balance -10 Output: Drainage 10 Medial Back 10 Other: Voiding Method Toilet # Voids 3 3 3 # Bowel Movements 0 0 - Labs CBC & Chem 7: 02/18/24 05:28 02/19/24 04:50 Labs: Abnormal Lab Results - Last 24 Hours (Table) 02/19/24 02/20/24 Range/Units 17:59 05:56 POC Glucose (mg/dL) 171 H 116 H (70-110) mg/dL Microbiology - Last 24 Hours (Table) 02/15/24 14:45 Gram Stain - Final Other - Other Tissue Culture - Final Citrobacter koseri 02/15/24 14:55 Gram Stain - Final Other - Other Wound Culture - Final Citrobacter koseri Proteus mirabilis
[2024-02-20 12:14] LABS: Glucose,Whole Blood 99 mg/dL (70-110)
[2024-02-20 14:00] VITALS: BP 125/74; PULSE 60; RESP 18
== END 2024-02-20 14:35 | disposition home health service (06) | DRG 908 ==
LOC: 2ORMAIN 10:05 → 4SSUR 16:21
PROVIDERS: ADMIT Orthopaedic Surgery; ATTEND Orthopaedic Surgery
PROC: 0SP00AZ Removal of Interbody Fusion Device from Lumbar Vertebral Joint, Open Approach (ICD-10-PCS; 2024-02-15)
PROC: 0J9700Z Drainage of Back Subcutaneous Tissue and Fascia with Drainage Device, Open Approach (ICD-10-PCS; 2024-02-15)
PROC: 0QB00ZZ Excision of Lumbar Vertebra, Open Approach (ICD-10-PCS; principal; 2024-02-15 12:00)
PROC: 02HV33Z Insertion of Infusion Device into Superior Vena Cava, Percutaneous Approach (ICD-10-PCS; 2024-02-19)
DX: T81.31XA Disruption of external operation (surgical) wound, not elsewhere classified, initial encounter (principal); D62 Acute posthemorrhagic anemia; M60.08 Infective myositis, other site; T81.41XA Infection following a procedure, superficial incisional surgical site, initial encounter; E13.22 Other specified diabetes mellitus with diabetic chronic kidney disease; E13.69 Other specified diabetes mellitus with other specified complication; E13.65 Other specified diabetes mellitus with hyperglycemia; N18.31 Chronic kidney disease, stage 3a; I12.9 Hypertensive chronic kidney disease with stage 1 through stage 4 chronic kidney disease, or unspecified chronic kidney disease; E78.5 Hyperlipidemia, unspecified; E87.5 Hyperkalemia; R00.1 Bradycardia, unspecified; G89.29 Other chronic pain; B96.4 Proteus (mirabilis) (morganii) as the cause of diseases classified elsewhere; B96.89 Other specified bacterial agents as the cause of diseases classified elsewhere; Z96.641 Presence of right artificial hip joint; Z98.1 Arthrodesis status; Z86.14 Personal history of Methicillin resistant Staphylococcus aureus infection; Z79.82 Long term (current) use of aspirin; Z79.899 Other long term (current) drug therapy; Z88.1 Allergy status to other antibiotic agents; Z91.048 Other nonmedicinal substance allergy status; Z88.2 Allergy status to sulfonamides
CPT/HCPCS: 36573; 71045; 72100; 76770; 80048; 80053; 82306; 82565; 83036; 83735; 84132; 85025; 85027; 85610; 85652; 86140; 86850; 86900; 86901; 87040; 87070; 87075; 87077; 87186; 87205; 93005; 94760

== ENCOUNTER → 2024-03-29 | Outpatient (CLI) | payer MEDICARE, OTHER ==
--- NOTE | 2024-03-29 16:42 | XR ---
EXAMINATION TYPE: XR pelvis AP view DATE OF EXAM: 03/29/2024 3:08 PM CLINICAL INDICATION:Female, 74 years old with history of M54.5 LUMBAR PAIN; [facility] COMPARISON: None TECHNIQUE: The pelvis was examined in a single projection. FINDINGS: There is no evidence of fracture or dislocation. Total right hip arthroplasty appears intac t. No periprosthetic lucency. Lumbosacral effusion hardware is intact. No lucency around the hardware to indicate complication. There is no soft tissue abnormality. No abnormal calcifications are prese nt. The spine appears intact. The left hip is intact with only minimal degenerative change. IMPRESSION: No acute osseous pathology.
--- NOTE | 2024-03-29 16:52 | XR ---
EXAMINATION TYPE: XR lumbar spine 2 or 3V DATE OF EXAM: 03/29/2024 3:09 PM CLINICAL INDICATION:Female, 74 years old with history of M54.5 LUMBAR PAIN; [facility] COMPARISON: None TECHNIQUE: XR lumbar spine 2 or 3V - Frontal, lateral and coned in L5-S1 lateral views of the spine. FINDINGS: Suboptimal imaging limits the sensitivity. Cholecystectomy clips in the upper quadrant. Thoracolumbar sacral fixation devices in place. Pedicle screws are well positioned. Intervertebral di sc prosthetic material appears intact. SPECT L3 wide laminectomy. No evidence of any acute osseous pathology. No evidence of loss of vertebral body height is seen. There is normal alignment of the lumbar vertebral bodies. No significant degeneration changes throughout the spine. IMPRESSION: 1. No acute fracture. 2. Hardware in place, well positioned and intact without obvious complication. Limited evaluation du e to quality of the radiographs.
== END | disposition home or self-care (01) ==
LOC: LABWHC1 14:48
PROVIDERS: ATTEND Orthopaedic Surgery
DX: M54.50 Low back pain, unspecified (principal)
CPT/HCPCS: 72100; 72170

== ENCOUNTER → 2025-04-02 | Outpatient (CLI) | payer MEDICARE, OTHER | END | disposition home or self-care (01) | LOC: LABWHC1 11:48 | PROVIDERS: ATTEND Orthopaedic Surgery | DX: Z22.322 Carrier or suspected carrier of Methicillin resistant Staphylococcus aureus (principal) | CPT/HCPCS: 87070 ==